=== PATIENT | male | born 1945 | race Caucasian/White ===

== ENCOUNTER 2022-02-08 08:01 | Outpatient (CLI) | payer OTHER, SELFPAY | END 2022-02-08 08:02 | disposition home or self-care (01) | PROVIDERS: PCP Family Medicine; Visit Provider Surgery | DX: R19.5 Other fecal abnormalities (principal); K57.30 Diverticulosis of large intestine without perforation or abscess without bleeding; K62.1 Rectal polyp; K63.5 Polyp of colon | CPT/HCPCS: 45380; 45381; 45385; 88305; 88341; 88342; 99153; J2250; J3010 ==

== ENCOUNTER 2022-02-11 15:21 | Outpatient (CLI) | payer OTHER, SELFPAY ==
--- OUTSIDE RECORDS SUMMARY | 2022-02-11 08:53 | XMS_ITS | Clinical Summary ---
:1945 Author Organization [facility] Address [address] [place] [address] Care Team Providers Name Role Phone Kristine Brown MD Primary Care Provider Source Comments You are receiving this document as you are listed as the primary care provider,follow-up provider, or the patient has been referred to you for consultation.This is in compliance with the Medicare and Medicaid EHR Incentive Program,which states Providers who transition their patient to another setting of careor provider of care or refers their patient to another provider of care shouldprovide summarycare record for each transition of care or referral. [employer] Allergies Active Allergy Reactions Severity Noted Date Comments Oxycodone Other, see comments 11/09/2011 Patient refuses to take it due to family addic tion issues. Medications Medication Sig Dispensed Refills Start Date End Date Status Multiple Vitamins-Iron 0 Active (MULTIVITAMIN/IRON OR) amLODIPine (NORVASC) 10 Take 1 Tab by 90 Tab 3 11/07/2016 Active MG tablet mouth daily. allopurinol (ZYLOPRIM) Take 1 Tab by 90 Tab 3 01/25/2017 Active 300 MG tablet mouth daily. predniSONE (DELTASONE) TAKE ONE TABLET 90 Tab 1 02/27/2017 Active 5 MG tablet BY MOUTH EVERY DAY Additional Information Patient not taking. Reported on 07/12/2017 lisinopril (ZESTRIL) 40 MG TAKE 1 TABLET BY MOUTH 90 Tab 0 08/18/2017 Active tablet DAILY. Additional Information Patient not taking. Reported on 09/03/2020 tamsulosin (FLOMAX) 0.4 MG CAPS capsule 0 11/26/2019 Active Active Problems Problem Noted Date Prediabetes 02/16/2015 History of basal cell cancer 01/16/2015 HTN (hypertension) 04/09/2013 Overview: 11/06/15 Increase: Amlodipine to 10 mg. Soraida Epperson RN 11/27/2015, 4:49 PM ; HTN (hypertension) ([facility]C) Nurse managed Immunizations Name Administration Dates Next Due Influenza, Unspecified Formulation 01/23/2016 Tdap 11/30/2012 Family History Medical History Relation Name Comments Hypertension Father Cataract Paternal Grandmother Glaucoma Paternal Grandmother Macular Degeneration Negative Family History Relation Name Status Comments Father Alive Mother Alive Brother Alive Daughter Alive x2 Maternal Grandfather Maternal Grandmother Paternal Grandfather Paternal Grandmother Sister 1 Alive Sister 2 Alive Son Alive x4 Social History Tobacco Use Types Packs/Day Years Used Date Smoking Tobacco: Former Cigarettes 1 9 Quit : 04/24/1971 Smokeless Tobacco: Never Alcohol Use Standard Drinks/Week Comments Yes 4.2 (1 standard drink = 0.6 oz pure alco hol) occ Sex Assigned at Date Recorded Not on file Last Filed Vital Signs Vital Sign Reading Time Taken Comments Blood Pressure 143/87 07/26/2017 8:48 AM CDT Pulse 76 04/07/2020 10:48 AM ESCALATION ENGINEER Temperature 38.2 ??C (100.7 ??F) 07/14/2016 1:46 PM CDT Respiratory Rate 14 05/19/2016 9:41 AM ESCALATION ENGINEER Oxygen Saturation - - Inhaled Oxygen Concentration - - Weight 108 kg (238 lb) 07/26/2017 8:48 AM CDT Height 182.9 cm (6') 2017 2:30 PM CDT Body Mass Index 32.28 2017 2:30 PM CDT Plan of Treatment Upcoming Encounters Date Type Specialty Care Team Description 02/14/2022 Appointment General Dentistry Bailey Castrejon, [facility] [address] [place] [address] (Wo rk) Health Maintenance Due Date Last Done Comments Colon Cancer Screening Plan Due 1945 Hep C Screening (Preventive 1945 Services) Medicare Annual Wellness Visit 1945 COVID-19 Vaccine (#1) 1945 Zoster/Shingles (1 of 2) 1997 Pneumococcal 65+ Yrs (1 - PCV) 01/25/2012 Influenza (#1) 2021 01/23/2016 DTaP/Tdap/Td (2 - Tdap) 11/30/2022 11/30/2012 HepA Aged Out No longer eligib le based on patient's age to complete this topic HepB Aged Out No longer eligib le based on patient's age to complete this topic Hib Aged Out No longer eligib le based on patient's age to complete this topic IPV (Polio) Aged Out No longer eligib le based on patient's age to complete this topic MCV4 Aged Out No longer eligib le based on patient's age to complete this topic Insurance Payer Benefit Plan Subscriber ID Effective Phone Address Typ e / Group Dates [employer] [facility] [id number] 2018-Pre PO BOX Co mmercial DENTAL PLAN SENIORS sent [address] [place] [address] [employer] (formerly [employer] [employer] [id number] 2014-Pre [phone] edicare sent 7979 MEDICARE MEDICARE [id number] 2012-Pr [phone] re MANAGED CARE esent [id number] [employer] PREVENTIVE [id number] 2020-Pre Preventive DENTAL PLAN SR PREV sent [employer] PREVENTIVE [id number] 2021-Pre Preventive DENTAL PLAN SR PREVENTIVE sent DENTAL [address] (Home) [phone] [place] GUTIER[place] (Work) [phone] Armen Crump Personal/Family Self [address] (Home) [place] [address] Armen Crump Personal/Family Self [address] (Home) [place] [address] Care Teams Warp Hauler Relationship Specialty Start Date End Date Kristine Brown MD PCP - General Family Practice 03/25/13 [address] [place] [address]
--- OUTSIDE RECORDS SUMMARY | 2022-02-11 08:53 | XMS_ITS | Encounter Summary ---
:1945 Author Organization [facility] Address [address] [place] [address] Care Team Providers Name Role Phone Kristine Brown MD Primary Care Provider Reason for Visit Reason Comments Restorative Services 9F,11F comp, 5mol amal Encounter Details Date Type Department Care Team Description 09/03/2020 Office Visit [facility] Richard Head, DDS [address] [place], [place] [phone] Restorative Services Dentistry Yardic, Exam (9F,11F comp, 5mol [address] [facility] amal) [place] [address] Social History Tobacco Use Types Packs/Day Years Used Date Smoking Tobacco: Former Cigarettes 1 9 Quit : 04/24/1971 Smokeless Tobacco: Never Alcohol Use Standard Drinks/Week Comments Yes 4.2 (1 standard drink = 0.6 oz pure alco hol) occ Sex Assigned at Date Recorded Not on file documented as of this encounter Progress Notes Tushar Head DDS - 09/03/2020 7:10 AM CDT DENTAL VISIT NOTE Subjective Reason for Visit/Chief Complaint Khanh is a 75 y.o. male who presents for Restorative Services (9F,11F comp, 5mol amal) CHIEF COMPLAINT: No CC Patient given 1%-1.5% hydrogen peroxide, rinsed for 60 seconds prior to procedure. Objective/Assessment Chart Review The following information was reviewed with the patient: Medical history, Dental history, Problem list, Periodontal charting and Radiographs RADIOGRAPHIC INTERPRETATION: #5 tooth fx DIAGNOSIS: Caries of cervical margin of tooth (primary encounter diagnosis) Fracture of tooth enamel and dentin PROGNOSIS: #5 Questionable PROGNOSIS: #9, #11 Favorable Plan Treatment Discussion I discussed the Dental findings, Prognosis, Treatment options and Risks and complications associatedwith procedure with patient. Advised due to attrition, tooth #5 may break again, may need crown. He did have endo completed #12,13, next visit post and core build ups. He does not want to extract #3 atthis time as he still uses it and can't afford implant now. CONSENT: All questions answered and the patient gave informed consent to proceed with dental treatment/services. Completed Procedures ANESTHESIA: Topical with 20% benzocaine 1.5 carpules 4% septocaine with 1:100,000 epinephrine was administered with infiltration in #5, #9, #11 No adverse side effects observed. Anesthesia was administered by Tushar Head DDS AMALGAM ADVENT, #5: Prepared with incomplete removal of existing restorations and minimal removal of tooth structure 4 retentive grooves into dentin and existing DO amalg. Isolated area with high speed suction, a cheek guard and a rubber dam Applied desensitizer microprime Preparation filled with amalgam Verified occlusion, contacts and margins POST-OP INSTRUCTIONS: Patient was advised of normal post-operative instructions and the need to exercise care because of the risk of fracture COMPOSITE ADVENT, #9, #11: Prepared with complete caries removal Isolated area with high speed suction and a rubber dam. Retraction cord isolation also Bonding with Scotchbond [place] material Preparation filled with composite material : Shade: A2 #9, A4 #11 Polishing adjuncts: finishing bur and polshing point Verified margins and aesthetics POST-OP INSTRUCTIONS: Patient was advised of normal post-operative instructions Care was assisted by surya Otero asst: karoline Next Planned Visit: ,13 post and cores Tushar Head DDS 09/03/2020, 8:51 AM --End of Note-- 7:22 AM documented in this encounter Plan of Treatment Upcoming Encounters Date Type Specialty Care Team Description 02/14/2022 Appointment General Dentistry Bailey Castrejon, [facility] [address] [place] [address] (Wo rk) documented as of this encounter Procedures Procedure Name Priority Date/Time Associated Diagnosis Comme nts 11 F COMPOSITE-1 Routine 09/03/2020 7:10 AM CDT Caries of cerv ical SURFACE ANTERIOR margin of tooth 9 F COMPOSITE-1 Routine 09/03/2020 7:10 AM CDT Caries of cervi cheo SURFACE ANTERIOR margin of tooth 5 MOL AMALGAM-3 Routine 09/03/2020 7:10 AM CDT Fracture of too th SURFACE enamel and dentin documented in this encounter Visit Diagnoses Diagnosis Caries of cervical margin of tooth - Vianney gale Fracture of tooth enamel and dentin documented in this encounter Care Teams Superintendent Terminal Relationship Specialty Start Date End Date Kristine Brown MD PCP - General Family Practice 03/25/13 [address] [place] [address] documented as of this encounter
--- OUTSIDE RECORDS SUMMARY | 2022-02-11 08:53 | XMS_ITS | Encounter Summary ---
:1945 Author Organization [facility] Address [address] [place] [address] Care Team Providers Name Role Phone Kristine Brown MD Primary Care Provider Reason for Visit Reason Comments Appt. Needed Pt would like to speak with DDS about consult on tooth 12 13. Wasn't happy with last consult 03/30 . Encounter Details Date Type Department Care Team Description 05/11/2020 Telephone [facility] Yard[facility], Exam Appt. N eeded (Pt would Dentistry like to speak with DDS [address] [place] [address] about consult on tooth 12 [place], [place] [address] 13. Wasn't happy with last [phone] consult 03/30. ) Social History Tobacco Use Types Packs/Day Years Used Date Smoking Tobacco: Former Cigarettes 1 9 Quit : 04/24/1971 Smokeless Tobacco: Never Alcohol Use Standard Drinks/Week Comments Yes 4.2 (1 standard drink = 0.6 oz pure alco hol) occ Sex Assigned at Date Recorded Not on file documented as of this encounter Plan of Treatment Upcoming Encounters Date Type Specialty Care Team Description 02/14/2022 Appointment General Dentistry Bailey Castrejon, [facility] [address] [place] [address] (Wo rk) documented as of this encounter Visit Diagnoses Not on filedocumented in this encounter Care Teams Founder And Chief Technical Officer Relationship Specialty Start Date End Date Kristine Brown MD PCP - General Family Practice 03/25/13 [address] [place] [address] documented as of this encounter
--- OUTSIDE RECORDS SUMMARY | 2022-02-11 08:53 | XMS_ITS | Encounter Summary ---
:1945 Author Organization [facility] Address [address] [place] [address] Care Team Providers Name Role Phone Kristine Brown MD Primary Care Provider Reason for Referral Dental (Routine) - Closed Specialty Diagnoses / Procedures Referred By Contact Refer red To Contact Diagnoses Dental caries into pulp Pulpal necrosis Tushar Head DDS [address] [place], [place] [address] Referral ID Status Reason Start Date Expiration Date Visits Requ ested Visits Authorized [id number] Closed 03/16/2020 06/15/2021 1 1 Scheduling Instructions Your provider has recommended an appoint ment for endodontic services within [facility]. You may c all one of the clinics below to schedule an appointment. [place] [phone] [place] [phone] SETTER Reason for Visit Reason Comments Endodontic Services endo #12 Encounter Details Date Type Department Care Team Description 03/16/2020 Office Visit [facility] Richard Head DDS [address] [place], [place] [phone] Endodontic Services Dentistry [place], Exam (endo #12) [address] [place], [place] [phone] Social History Tobacco Use Types Packs/Day Years Used Date Smoking Tobacco: Former Cigarettes 1 9 Quit : 04/24/1971 Smokeless Tobacco: Never Alcohol Use Standard Drinks/Week Comments Yes 4.2 (1 standard drink = 0.6 oz pure alco hol) occ Sex Assigned at Date Recorded Not on file documented as of this encounter Progress Notes Tushar HeadJENNYS - 03/16/2020 7:10 AM CST DENTAL VISIT NOTE Subjective Reason for Visit/Chief Complaint Khanh is a 75 y.o. male who presents for Endodontic Services (endo #12) Patient given 1%-1.5% hydrogen peroxide, rinsed for 60 seconds prior to procedure. 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 CONSENT: Patient was advised of the risks and potential complications of Endodontic Therapy. Such complications which can occur during treatment and/or may affect the outcome of treatment include, but are not limited to: ?? Root canal therapy is reportedly successful 85-95% of the time. ?? Post-op discomfort or swelling lasting a few hours to several days may require medications as deemed necessary by the dentist. ?? Separation of canal instruments in the root canal may be left in the canal or require surgery forremoval based on dentist judgement ?? Perforation of the tooth/root may require additional surgical correction or result in loss of thetooth. ?? Crack or fracture of tooth/anglican during treatment may require a new anglican or possiblyresult in loss of the tooth ?? Administration of local anesthetics may result in complications such as an allergic reaction, fainting, heart palpitations, bruising, hematoma and parasthesia in the lip and tongue. ?? Short or long-term tenderness or soreness related to the temporomandibular joint. ?? Seek evaluation and treatment from pain specialist IF pain persists for six months or more. ?? Timely and definitive anglican of the tooth is often required once the treatment is completed. ?? Contact our office if symptoms continue with the tooth. Periodic recalls may be recommended. All questions answered and the patient gave informed consent to proceed with dental treatment/services. Completed Procedures ANESTHESIA: Topical with 20% benzocaine 1.0 carpules 4% septocaine with 1:100,000 epinephrine was administered with infiltration in #12 No adverse side effects observed. Anesthesia was administered by Tushar Head DDS ENDODONTIC THERAPY - #12: Isolated area with high speed suction, cotton rolls and a rubber dam. Remove decay from buccal and restored with glass ionomer fuji IX in order to give enough structure to isolate with rubber dam. Then placed RD, removed DO caries, tried to find bu and li canals. Went down 5mm below pulpal floor and unable to negotiate canals--calcified. Recommend see oracle dba for completion Irrigation: Sodium hypochlorite 2.5-5.25% : Dried with cotton pellet Access closed with glass ionomer over cotton fuji IX Total radiographs required for treatment: 0 Patient presented with: No fracture noted Since unable to complete endo tx 12, patient agrees to continue with tx of #13, was started in May 2018 as emergency visit. ENDODONTIC THERAPY - #13: 1.0 carpules 4% septocaine with 1:100,000 epinephrine was administered with infiltration in #13 No adverse side effects observed. Anesthesia was administered by Tushar Head DDS Isolated area with high speed suction and a rubber dam Canal Location: Facial, Lingual Used apex street and building decorator, unable to get to apex, approx 4mm short in both canals Irrigation: Sodium hypochlorite 2.5-5.25% : Dried with paper points Access closed with glass ionomer over cotton Total radiographs required for treatment: 0 Patient presented with: No fracture noted Rec follow up with oracle dba to complete POST-OP INSTRUCTIONS: Patient was advised of normal post-operative instructions and need to completeendo tx or risk pain/infection. Care was assisted by karoline Araya Planned Visit: op , endo visit, referral in place for Tushar Head DDS 03/16/2020, 10:35 AM --End of Note-- 7:16 AM SETTER documented in this encounter Plan of Treatment Upcoming Encounters Date Type Specialty Care Team Description 02/14/2022 Appointment General Dentistry aBiley Castrejon, [facility] [address] [place] [address] (Wo rk) Scheduled Referrals Name Type Priority Associated Diagnoses Order S chedule Endodontics Consult Referral Routine Dental julisa s into pulp Ordered: 03/16/2020 Pulpal necrosis documented as of this encounter Procedures Procedure Name Priority Date/Time Associated Diagnosis Comme nts DIAGNOSTIC CASTS Routine 03/16/2020 7:10 AM BED SETTER Dental attriti on, excessive UNSPEC ENDO PROC BY REP Routine 03/16/2020 7:10 AM BED SETTER Dental caries extending into inner third of dentin Pulpal necrosis 12 SEDATIVE FILLING Routine 03/16/2020 7:10 AM BED SETTER Dental caries extending into inner third of dentin Dental caries into pulp documented in this encounter Visit Diagnoses Diagnosis Dental caries extending into inner third of dentin - Primary Dental caries into pulp Dental caries extending into pulp Dental attrition, excessive Excessive attrition of teeth, unspecifie d Pulpal necrosis Necrosis of dental pulp documented in this encounter Care Teams Government Employee Relationship Specialty Start Date End Date Kristine Brown MD PCP - General Family Practice 03/25/13 [address] [place] [address] documented as of this encounter
--- OUTSIDE RECORDS SUMMARY | 2022-02-11 08:53 | XMS_ITS | Encounter Summary ---
:1945 Author Organization [facility] Address [address], [place] [address] Care Team Providers Name Role Phone Kristine Brown MD Primary Care Provider Reason for Visit Reason Comments Endodontic Services co #12, #13 Dental (Routine) - Closed Specialty Diagnoses / Procedures Referred By Contact Refer red To Contact Diagnoses Dental caries into pulp Pulpal necrosis Tushar Head DDS [address] [place], [place] [address] Referral ID Status Reason Start Date Expiration Date Visits Requ ested Visits Authorized [id number] Closed 03/16/2020 06/15/2021 1 1 Encounter Details Date Type Department Care Team Description 03/30/2020 Office Visit [facility] [address], [place], [place] (co #12, #13) [place] [address] [phone] [place], [place] [address] Social History Tobacco Use Types Packs/Day Years Used Date Smoking Tobacco: Former Cigarettes 1 9 Quit : 04/24/1971 Smokeless Tobacco: Never Alcohol Use Standard Drinks/Week Comments Yes 4.2 (1 standard drink = 0.6 oz pure alco hol) occ Sex Assigned at Date Recorded Not on file documented as of this encounter Progress Notes Sagar Reyes DDS, [place] - 03/30/2020 9:00 AM CST ENDODONTIC CONSULT NOTE REASON FOR VISIT/CHIEF COMPLAINT: Armen is a 75 y.o. male who presents today for Endodontic Services (co #12, #13) CHART REVIEW: Reviewed with patient: Medical history, Dental history, Problem list, Periodontal charting and Radiographs TREATMENT DISCUSSION: Discussed with patient: Dental findings, Prognosis, Treatment options, Risks and complications associated with procedure and Billing/Treatment estimate TREATMENT OPTIONS: Nonsurgical Endodontic Therapy or Extraction PROGNOSIS: Questionable CONSENT: Obtained PROCEDURES PERFORMED AT THIS VISIT: DIAGNOSIS: Subjective: Chief Complaint: Infection (suspected) Current level of pain: 0/10 Worst pain level associated with this problem: 2/10 Location of pain: Maxillary left quadrant Nature of pain: N/A Eliciting factors: N/A Duration: N/A Alleviating factors: Not taking anything Swelling: None Objective: Radiographic interpretation: Widening of PDL space Sinus tract: none Clinical manifestation of swelling: None Extraoral evaluation: normal Total radiographs required: 2 -CLINICAL TESTS- Loc ation Cold Hot Percussion Apical Palp ation Cusps + to Tooth Sleuth Perio Probing (mm) Mobility EPT #11, #14 + N/A - - #12 - N/A - - B4,3,4 L4,3,4 Grade 0 N/A #13 - N/A - - B4,3,4 L4,3,4 Grade 0 N/A Assessment: #12, #13 Pulpal dx: previously initiated therapy Periapical dx: asymptomatic apical periodontitis Other dx: N/A Plan: Non Surgical Endodontic Therapy No OTC pain meds recommended. Care was assisted by CHRIS Ott NEXT PLANNED VISIT: Treatment --End of Note-- E WORK CLEANER documented in this encounter Plan of Treatment Upcoming Encounters Date Type Specialty Care Team Description 02/14/2022 Appointment General Dentistry Bailey Castrejon, [facility] [address] [place] [address] (Wo rk) Scheduled Orders Name Type Priority Associated Diagnoses Order S chedule 12 12 ROOT Dental Procedures Routine 1 Occurren samuel starting CANAL-BICUSPID 03/30/2020 13 13 ROOT Dental Procedures Routine 1 Occurren samuel starting CANAL-BICUSPID 03/30/2020 documented as of this encounter Procedures Procedure Name Priority Date/Time Associated Diagnosis Comme nts , LIMITED ORAL Routine 03/30/2020 9:00 AM Visit for dental EVALUATION WHITE WORK CLEANER examination documented in this encounter Visit Diagnoses Diagnosis Visit for dental examination - Primary Dental examination documented in this encounter Care Teams Starter Mechanic Relationship Specialty Start Date End Date Kristine Brown MD PCP - General Family Practice 03/25/13 [address] [place] [address] documented as of this encounter
--- OUTSIDE RECORDS SUMMARY | 2022-02-11 08:53 | XMS_ITS | Encounter Summary ---
:1945 Author Organization [facility] Address [address] [place] [address] Care Team Providers Name Role Phone Kristine Brown MD Primary Care Provider Reason for Visit Reason Comments [facility] Encounter Details Date Type Department Care Team Description 01/04/2021 Telephone [place] Richard Lau, DDReed [facility] [id number] [place] [address] [place] [address] [place], [place] [address] [phone] Social History Tobacco Use Types Packs/Day Years [...] Description 02/14/2022 Appointment General Dentistry Bailey Castrejon, [facility] [address] [place], [place] [phone] (Wo rk) documented as of this encounter Visit Diagnoses Not on filedocumented in this encounter Care Teams Label Paster Relationship Specialty Start Date End Date Kristine Brown MD PCP - General Family Practice 03/25/13 [address] [place] [address] documented as of this encounter
--- OUTSIDE RECORDS SUMMARY | 2022-02-11 08:53 | XMS_ITS | Encounter Summary ---
:1945 Author Organization [facility] Address [address] [place] [address] Care Team Providers Name Role Phone Kristine Brown MD Primary Care Provider Reason for Visit Reason Comments Insurance Concerns Encounter Details Date Type Department Care Team Description 09/03/2020 Telephone [facility] Richard Head, ALONSO Insurance Concerns Dentistry [id number] [place] [id number] [place] [address] [phone] (Wo rk) Social History Tobacco Use Types Packs/Day Years Used Date Smoking Tobacco: Former Cigarettes 1 9 Quit : 04/24/1971 Smokeless Tobacco: Never Alcohol Use Standard Drinks/Week Comments Yes 4.2 (1 standard drink = 0.6 oz pure alco hol) occ Sex Assigned at Date Recorded Not on file documented as of this encounter Patient Instructions Patient InstructionsLam Mena - 09/03/2020 3:04 PM CDT Spoke with Zafar Franklin est he will call member service documented in this encounter Plan of Treatment Upcoming Encounters Date Type Specialty Care Team Description 02/14/2022 Appointment General Dentistry Bailey Castrejon [facility] [address] [place] [address] (Wo rk) documented as of this encounter Visit Diagnoses Not on filedocumented in this encounter Care Teams Leathersmith Relationship Specialty Start Date End Date Kristine Brown MD PCP - General Family Practice 03/25/13 [address] [place] [address] documented as of this encounter
--- OUTSIDE RECORDS SUMMARY | 2022-02-11 08:53 | XMS_ITS | Encounter Summary ---
:1945 Author Organization [facility] Address [address] [place] [address] Care Team Providers Name Role Phone Kristine Brown MD Primary Care Provider Reason for Visit Reason Comments Oral Surgical Services consult / la 3 Dental (Routine) - Closed Specialty Diagnoses / Procedures Referred By Contact Refer red To Contact Diagnoses Fracture of crown and root of tooth Extensive root caries lesions involving dentin Av General Dentistry [address] [place] [address] [phone] Referral ID Status Reason Start Date Expiration Date Visits Requ ested Visits Authorized [id number] Closed 02/18/2020 05/19/2021 1 1 Encounter Details Date Type Department Care Team Description 04/07/2020 Office Visit Tatiana Gutierrez Surgical Surgery M, DDS Services (consult / [address] [place] [address] [place] [address] [phone] Social History Tobacco Use Types Packs/Day Years Used Date Smoking Tobacco: Former Cigarettes 1 9 Quit : 04/24/1971 Smokeless Tobacco: Never Alcohol Use Standard Drinks/Week Comments Yes 4.2 (1 standard drink = 0.6 oz pure alco hol) occ Sex Assigned at Date Recorded Not on file documented as of this encounter Last Filed Vital Signs Vital Sign Reading Time Taken Comments Blood Pressure - - Pulse 76 04/07/2020 10:48 AM HUMAN RESOURCES TECHNICIAN Temperature - - Respiratory Rate - - Oxygen Saturation - - Inhaled Oxygen Concentration - - Weight - - Height - - Body Mass Index - - documented in this encounter Progress Notes Tatiana Cardoza DDS - 04/07/2020 11:00 AM CST ORAL SURGERY CONSULT / PROCEDURE NOTE NAME: Armen Crump : 1945 DOS: 04/07/2020 REFERRAL:Dr Sonido GUPTA for extraction #3 PRIMARY : Kristine Brown MD (General) CHIEF COMPLAINT: Oral Surgical Services (consult / la 3) ID: 75 y.o. male, ASA 2 PAST MEDICAL HISTORY: Past Medical History: Diagnosis Date ??? BP (high blood pressure) (HRC) ??? Caries PROBLEM LIST: Patient Active Problem List Diagnosis ??? HTN (hypertension) (HRC) ??? History of basal cell cancer ??? Prediabetes MEDS: ??? allopurinol (ZYLOPRIM) 300 MG tablet, Take 1 Tab by mouth daily., Disp: 90 Tab, Rfl: 3 ??? amLODIPine (NORVASC) 10 MG tablet, Take 1 Tab by mouth daily., Disp: 90 Tab, Rfl: 3 ??? lisinopril (ZESTRIL) 40 MG tablet, TAKE 1 TABLET BY MOUTH DAILY., Disp: 90 Tab, Rfl: 0 ??? Multiple Vitamins-Iron (MULTIVITAMIN/IRON OR), , Disp: , Rfl: ??? predniSONE (DELTASONE) 5 MG tablet, TAKE ONE TABLET BY MOUTH EVERY DAY (Patient not taking: Reported on 07/12/2017), Disp: 90 Tab, Rfl: 1 ??? tamsulosin (FLOMAX) 0.4 MG CAPS capsule, , Disp: , Rfl: No current facility-administered medications on file as of 04/07/2020. ALLERGIES: Patient is allergic to oxycodone. PAST SURGICAL HISTORY: No past surgical history on file. -No surgical or anesthetic complications. (no family history of GA complications) SOCIAL HISTORY: 1. Tobacco: Patient reports that he quit smoking about 48 years ago. He has a 9.00 pack-year smokinghistory. He has never used smokeless tobacco. 2. Alcohol: Patient reports current alcohol use of about 4.2 - 5.0 standard drinks of alcohol per week. 3. Drug use: Patient reports no history of drug use. EXAMINATION: -Vital Signs: Enc Vitals Dental BP: 130/86 Cuff Size: Large Site: Left Arm Pulse: 76 -Pain: 0/10 -HEENT: There is no cervical lymphadenopathy, masses, or trismus. There is no pain to palpation of the bilateral TMJs or muscles of mastication. -TMJ: The TMJs have normal range of motion and presents without clicks, pops, or crepitus. -AIRWAY: Mallampati 2 -Intraorally, the patient has fair oral hygiene. The occlusion is in maximum intercuspation. The floor mouth is soft and nontender. There are no intraoral soft tissue lesions noted. Heavy occlusion with h/o grinding. Tooth #3 is fractured subgingivally. #12 is fractured subgingivally. #13 is at the gingiva, but sealed. IMAGING: PA: (dated 02/17/2020): fractured tooth #3. #12 and 13 potentially non- restorable at this point. ASSESSMENT: Armen is a 75 y.o. male, ASA 2, with non-restorable tooth #3 and questionable restorability #12 and 13. PLAN: Discussed findings with pt. Pt to re-visit with Dr. Head regarding #12/13- may need NSRCT/post/core/buildup/crown. - Discussed treatment options following tooth removal including no treatment, RPD, FPD and implant retained crowns. Questions were invited and answered. Pt would like to start on the upper right when ready to proceed. Next visit: la/ext #3 Tatiana Cardoza DDS 04/07/2020, 3:12 PM N RESOURCES TECHNICIAN documented in this encounter Plan of Treatment Upcoming Encounters Date Type Specialty Care Team Description 02/14/2022 Appointment General Dentistry Bailey Castrejon, [facility] [address] [place] [address] (Wo rk) Scheduled Orders Name Type Priority Associated Order Schedule Diagnoses CONE BEAM CT CAPTURE Dental Procedures Routine 1 Occurrences ONLY-LIMITED FIELD starting 04/07/2020 3 3 SURGICAL Dental Procedures Routine 1 Occurren samuel PLACEMENT: ENDOSTEAL startin g 04/07/2020 IMPLANT 3 3 BONE GRAFT AT Dental Procedures Routine 1 Occ urrences TIME OF IMPLANT starting PLACEMENT POST OP-ORAL SURG Dental Procedures Routine 1 Occ urrences starting 2019 SURGICAL STENT Dental Procedures Routine 1 Occurr ences starting 2019 3 3 SURGICAL Dental Procedures Routine 1 Occurren samuel EXTRACTION-ERUPTED starting 04/07/2020 TOOTH 3 3 BONE REPLACEMENT Dental Procedures Routine 1 Occurrences GRAFT starting 2019 documented as of this encounter Procedures Procedure Name Priority Date/Time Associated Diagnosis Comme nts LIMITED ORAL EVALUATION Routine 04/07/2020 11:00 AM Dental car ies into HUMAN RESOURCES TECHNICIAN pulp documented in this encounter Visit Diagnoses Diagnosis Dental caries into pulp - Primary Dental caries extending into pulp documented in this encounter Care Teams Shipping/Receiving Clerk Relationship Specialty Start Date End Date Kristine Brown MD PCP - General Family Practice 03/25/13 [address] [place] [address] documented as of this encounter
--- OUTSIDE RECORDS SUMMARY | 2022-02-11 08:53 | XMS_ITS | Encounter Summary ---
:1945 Author Organization [facility] Address [address] [place] [address] Care Team Providers Name Role Phone Kristine Brown MD Primary Care Provider Reason for Visit Reason Comments Problem Focused Exam Fractured tooth or filling Encounter Details Date Type Department Care Team Description 01/04/2021 Office Visit [facility] Brenna Reyes P roblem Focused Exam Dentistry DDS (Fractured tooth [place] [address] [place] [address] filling ) [place] [id number] Social History Tobacco Use Types Packs/Day Years Used Date Smoking Tobacco: Former Cigarettes 1 9 Quit : 04/24/1971 Smokeless Tobacco: Never Alcohol Use Standard Drinks/Week Comments Yes 4.2 (1 standard drink = 0.6 oz pure alco hol) occ Sex Assigned at Date Recorded Not on file documented as of this encounter Progress Notes Brenna Reyes DDS - 01/04/2021 12:00 PM CDT DENTAL EMERGENCY VISIT NOTE Shannon Stout is a 75 y.o. male who presents for Problem Focused Exam (Fractured tooth or filling ) Chief Complaint: Sensitive to cold, Sensitive to pressure, Toothache Pain Assessment: Current level of pain: 3/10 Worst pain level associated with this problem: 3/10 Location of pain: Maxillary left Nature of pain: Dull Eliciting factors: Hot, Cold, Pressure Duration: N/A Alleviating factors: Not taking anything Swelling: None Objective/Assessment The following information was reviewed with the patient: Medical history, Dental history and Radiographs Radiographic Interpretation: #12, #13 Previous endo done in April of this year Diagnosis: Defective dental protestant (primary encounter diagnosis) Prognosis: #12, #13 Favorable Pt needs to get his right knee replaced in January and wants to get these teeth taken care of, no pain but slight sensations on both teeth, fractured filling but teeth are ok, discussed to do sed fillsfor now and patient can get crowns in future,after the knee replacement, pt agreed Plan *onsent: I discussed the Dental findings, Prognosis, Treatment options, Risks and complications associated with procedure and Billing/Treatment estimate with the patient. All questions answered and they expressed understanding. Procedural Pause: Patient identify verified: Yes Treatment plan/site verified with the patient Instruments/equipment verified: Yes Any medication/allergy contraindications: No Completed Procedures: ANESTHESIA: None used, procedure was minimally invasive. SEDATIVE ALEVISM, #12, #13: Prepared with complete caries removal Isolated area with high speed suction, cotton rolls and a cheek guard Applied Cavity conditioner Preparation filled with glass ionomer material : Shade: A2 Post-Op Instructions: Patient was advised of normal post-operative instructions, potential for post-operative sensitivity and the need to exercise care because of the risk of fracture Care was assisted by CHRIS Caruso Next Planned Visit: Recall No Medications ordered this encounter Brenna Reyes DDS 01/04/2021, 1:17 PM documented in this encounter Plan of Treatment Upcoming Encounters Date Type Specialty Care Team Description 02/14/2022 Appointment General Dentistry Bailey Castrejon, [facility] [address] [place] [address] (Wo rk) documented as of this encounter Procedures Procedure Name Priority Date/Time Associated Diagnosis Comme nts FILM-PERIAPICAL FIRST Routine 01/04/2021 12:00 PM Defective de ntal CDT protestant 13 MODBL SEDATIVE Routine 01/04/2021 12:00 PM Defective dental FILLING CDT protestant 12 DOBL SEDATIVE Routine 01/04/2021 12:00 PM Defective dental FILLING CDT protestant LIMITED ORAL EVALUATION Routine 01/04/2021 12:00 PM Defective dental CDT protestant 13 EXISTING PFM CROWN Routine 01/22/2008 11:00 PM CDT 19 EXISTING FULL GOLD Routine 01/22/2008 11:00 PM CROWN CDT 12 DO EXISTING AMALGAM Routine 01/22/2008 11:00 PM FILLING CDT documented in this encounter Visit Diagnoses Diagnosis Defective dental protestant - Primary Unspecified unsatisfactory protestant o f tooth documented in this encounter Care Teams Book Shelver Relationship Specialty Start Date End Date Kristine Brown MD PCP - General Family Practice 03/25/13 [address] [place] [address] documented as of this encounter
--- OUTSIDE RECORDS SUMMARY | 2022-02-11 08:53 | XMS_ITS | Encounter Summary ---
:1945 Author Organization [facility] Address [address] [place] [address] Care Team Providers Name Role Phone Kristine Brown MD Primary Care Provider Reason for Referral Dental (Routine) - Closed Specialty Diagnoses / Procedures Referred By Contact Refer red To Contact Diagnoses Chronic apical abscess Tushar Head DDS [address] [place], [place] [address] Referral ID Status Reason Start Date Expiration Date Visits Requ ested Visits Authorized [id number] Closed 04/09/2020 07/09/2021 1 1 Scheduling Instructions Your provider has recommended an appoint ment for endodontic services within [facility]. You may c all one of the clinics below to schedule an appointment. [place] [phone] [place] [phone] IAL EDUCATION AIDE Reason for Visit Reason Comments REFERRAL REQUEST Encounter Details Date Type Department Care Team Description 04/08/2020 Telephone [facility] Richard Head DDS REFERRAL REQUEST Dentistry [address] [place] [address] [place] [address] [place] [address] [phone] Social History Tobacco Use Types Packs/Day Years Used Date Smoking Tobacco: Former Cigarettes 1 9 Quit : 04/24/1971 Smokeless Tobacco: Never Alcohol Use Standard Drinks/Week Comments Yes 4.2 (1 standard drink = 0.6 oz pure alco hol) occ Sex Assigned at Date Recorded Not on file documented as of this encounter Nursing Notes Bisi Thorpe - 04/13/2020 7:54 AM CST Called the patient and informed him the referral was in place. He will call them to get scheduled. IAL EDUCATION AIDE Tushar Head DDS - 04/09/2020 7:08 AM CST Placed new referral for [facility] for #12,13 per phone message. His request also mentioned [facility] which is Oral surgery, not endo. If he wants teeth removed I will put in OS referral. He has appt with Dr. Cardoza for extraction of #3 on 05/19/20 Tushar Head DDS 04/09/2020, 7:10 AM IAL EDUCATION AIDE Bisi Thorpe - 04/08/2020 10:42 AM CST Miscellaneous Questions & FYI's [ Appt Center/Lands Resource Manager: If this call is after 3 p.m., communicate to patient: If we are not able to get back to you by the end of the day and your symptoms worsen please contact the Careline at [phone] OR at .] Is this a symptom? No What is your question or concern? Patient wants a new referral for an plug drill operator placed in his chart. He would like to go to [facility] in [place]. Patient was seen by Harris Reardon and states he wasn't comfortable with them. Please advise Have you recently been seen for this? Yes: 03/16/20 Is it okay to leave a detailed message on your voicemail? Yes Bisi Thorpe IAL EDUCATION AIDE documented in this encounter Plan of Treatment Upcoming Encounters Date Type Specialty Care Team Description 02/14/2022 Appointment General Dentistry Bailey Castrejon, [facility] [address] [place], [place] [phone] (Wo rk) Scheduled Referrals Name Type Priority Associated Diagnoses Order S chedule Endodontics Consult Referral Routine Chronic apical absces s Ordered: 04/09/2020 documented as of this encounter Visit Diagnoses Diagnosis Chronic apical abscess - Primary documented in this encounter Care Teams Check Out Cashier Relationship Specialty Start Date End Date Kristine Brown MD PCP - General Family Practice 03/25/13 [address] [place] [address] documented as of this encounter
--- OUTSIDE RECORDS SUMMARY | 2022-02-11 08:53 | XMS_ITS | Encounter Summary ---
:1945 Author Organization [facility] Address [address] [place] [address] Care Team Providers Name Role Phone Kristine Brown MD Primary Care Provider Reason for Visit Reason Comments Dental Services returning call Encounter Details Date Type Department Care Team Description 05/11/2020 Telephone [facility] Tushar Head Den tal Services Dentistry DDS (returning call) [address] [facility] [address] [place], [place] [address] [place], [place] [phone] (Wo rk) Social History Tobacco Use Types Packs/Day Years Used Date Smoking Tobacco: Former Cigarettes 1 9 Quit : 04/24/1971 Smokeless Tobacco: Never Alcohol Use Standard Drinks/Week Comments Yes 4.2 (1 standard drink = 0.6 oz pure alco hol) occ Sex Assigned at Date Recorded Not on file documented as of this encounter Nursing Notes Tushar Head DDS - 05/11/2020 11:16 AM CST Called Khanh, he saw an lens coating technician in [place], wanted to make sure it is ok to do both teeth at the same time. Advised that is fine, best to get done before starts to abscess or cause more pain. Then can crown both teeth and have 1 side completed for solid occlusion and chewing. Can wait on extracting 3 if not bothering him at this time, 12,13 are higher priority. Tushar Head DDS 05/11/2020, 11:18 AM LEAD documented in this encounter Plan of Treatment Upcoming Encounters Date Type Specialty Care Team Description 02/14/2022 Appointment General Dentistry Bailey Castrejon, [facility] [address] [place] [address] (Wo rk) Scheduled Orders Name Type Priority Associated Diagnoses Order S chedule 12 12 CROWN SEAT Dental Procedures Routine 1 Occu rrences starting 2020 13 13 CROWN SEAT Dental Procedures Routine 1 Occu rrences starting 2020 documented as of this encounter Visit Diagnoses Not on filedocumented in this encounter Care Teams Front Facer Relationship Specialty Start Date End Date Kristine Brown MD PCP - General Family Practice 03/25/13 [address] [place], [place] [id number] documented as of this encounter
--- OUTSIDE RECORDS SUMMARY | 2022-02-11 08:54 | XMS_ITS | Encounter Summary ---
:1945 Author Organization [employer] Address [address] [place] [address] Care Team Providers Name Role Phone Kristine Brown MD Primary Care Provider Reason for Visit Reason Comments Problem Focused Exam crown came off Encounter Details Date Type Department Care Team Description 02/11/2020 Office Visit [place] [facility] Tushar Head Pro blem Focused Exam Dentistry DDS (crown came off) [address] [facility] [address] [place] [address] [phone] Social History Tobacco Use Types Packs/Day Years Used Date Smoking Tobacco: Former Cigarettes 1 9 Quit : 04/24/1971 Smokeless Tobacco: Never Alcohol Use Standard Drinks/Week Comments Yes 4.2 (1 standard drink = 0.6 oz pure alco hol) occ Sex Assigned at Date Recorded Not on file documented as of this encounter Progress Notes Tushar Head DDS - 02/11/2020 12:00 PM CDT DENTAL VISIT NOTE Subjective Reason for Visit/Chief Complaint Khanh is a 75 y.o. male who presents for Problem Focused Exam (crown came off) CHIEF COMPLAINT: Lower left crown came off, no pain. Came off 2 days ago Objective/Assessment Chart Review The following information was reviewed with the patient: Medical history, Dental history, Problem list, Periodontal charting and Radiographs EOE-wnl, OCS-wnl. #19 with gold crown off, part of MO build up inside crown. No caries on prep, perio 4mm DL,DB and slight overgrowth of tissue on M margin. PA wnl. [place] seats into position, but blanches tissue mesial. RADIOGRAPHIC INTERPRETATION: #19 Normal DIAGNOSIS: Loose Dental [place] (finding) (primary encounter diagnosis) PROGNOSIS: #19 Favorable Plan Treatment Discussion I discussed the Dental findings, Prognosis, Treatment options, Risks and complications associated with procedure and Billing/Treatment estimate with patient. CONSENT: All questions answered and the patient gave informed consent to proceed with dental treatment/services. Completed Procedures CROWN AND BRIDGE RE-CEMENT - #19: [place] recementation with resin-modified glass ionomer.Relyx luting plus Apparent reason for failure: Cement failure and Buildup failure Radiographs : N/A Verified occlusion, contacts, margins and cement removal Post-Op Instructions: Patient was advised of normal post-operative instructions Care was assisted by CHRIS Shaffer 02/11/2020, 11:44 AM Next Planned Visit: DOMESTIC HOUSEKEEPER exam/prophy Tushar Head DDS 02/11/2020, 2:12 PM --End of Note-- 11:43 AM documented in this encounter Plan of Treatment Upcoming Encounters Date Type Specialty Care Team Description 02/14/2022 Appointment General Dentistry Bailey Castrejon, [facility] [address] [place] [address] (Wo rk) documented as of this encounter Procedures Procedure Name Priority Date/Time Associated Diagnosis Comme nts FILM-PERIAPICAL FIRST Routine 02/11/2020 12:00 PM Loose Dental [place] CDT (finding) 19 CROWN RECEMENT Routine 02/11/2020 12:00 PM Loose Dental Anatomic Pathology Manager wn CDT (finding) LIMITED ORAL EVALUATION Routine 02/11/2020 12:00 PM Loose [place] al [place] CDT (finding) 2 MO EXISTING AMALGAM Routine 01/22/2008 11:00 PM FILLING CDT documented in this encounter Visit Diagnoses Diagnosis Loose Dental [place] (finding) - Primary documented in this encounter Care Teams Soil Conservation Aide Relationship Specialty Start Date End Date Kristine Brown MD PCP - General Family Practice 03/25/13 [address] [place] [address] documented as of this encounter
--- OUTSIDE RECORDS SUMMARY | 2022-02-11 08:54 | XMS_ITS | Encounter Summary ---
:1945 Author Organization [employer] Address [address], [place] [address] Care Team Providers Name Role Phone Kristine Brown MD Primary Care Provider Reason for Visit Reason Comments Encounter Details Date Type Department Care Team Description 08/15/2016 Telephone [facility] Prateek Elizabeth MD [facility] [address] [place] [address] [place] [address] [phone] Social History Tobacco Use Types Packs/Day Years Used Date Smoking Tobacco: Former Cigarettes 1 9 Quit : 04/24/1971 Smokeless Tobacco: Never Alcohol Use Standard Drinks/Week Comments Yes 4.2 (1 standard drink = 0.6 oz pure alco hol) occ Sex Assigned at Date Recorded Not on file documented as of this encounter Nursing Notes Myriam Urban LPN - 08/17/2016 2:10 PM CDT Message given to patient understanding was voiced. Myriam Urban LPN Elana Coughlin CMA - 08/17/2016 10:32 AM CDT Unable to reach by phone, left message for patient to call back. Elana Coughlin CMA 08/17/2016, 10:33 AM Prateek Britton MD - 08/17/2016 10:17 AM CDT He will be on the prednisone 5 mg daily until we get hims to his goal uric acid level of less than 6and we will keep him on the prednisone for 2-3 months after that to prevent a gout flare. Thanks. Prateek Britton MD Jory Burrows LPN - 08/17/2016 9:56 AM CDT Spoke with patient and he verbalized understanding. He is asking for clarification on how long to continue the Prednisone? Jory Burrows LPN Elana Coughlin CMA - 08/17/2016 9:00 AM CDT Unable to reach by phone, left message for patient to call back. Elana Coughlin CMA 08/17/2016, 9:00 AM Prateek Britton MD - 08/17/2016 8:06 AM CDT Prednisone 5 mg daily ordered for gout prophylaxis. Patient will stop colchicine. Thanks. Prateek Britton MD NET Elana Coughlin CMA - 08/16/2016 8:23 AM CDT Spoke with patient regarding message below, message was understood. Pt states he stopped colchicine last due to Severe Nausea/Diarrhea. Pt states he agrees with prednisone, pharmacy listed above. FYI: Pt wanted me to inform you per his PCP Dr. Brown believes the current medications pt consuming may be affecting his B/P, pt informed me he will be seeing his PCP this week to discuss b/p. Elana Coughlin CMA 08/16/2016, 8:30 AM Nicole Dent LPN - 08/15/2016 9:57 AM CDT Left message to call back. Nicole Dent LPN 08/15/2016, 9:57 AM Prateek Britton MD - 08/15/2016 9:50 AM CDT Please call patient let him know his kidney function was just slightly more elevated than it has been. His liver enzymes are normal but his blood counts show a slightly low white count. His uric acid level 7.4. How much colchicine is he taking? Is just taking it once a day. I would like him to increase his allopurinol to 200 mg daily. If he is just taking the colchicine once a day this may be the cause of his low white count. I'd like him to stop the colchicine and I can prescribe him prednisone 5 mg daily to prevent a gout flare up. Is he ok with that? Please let me know what pharmacy I should send the prednisone to. Thanks. Prateek Britton MD documented in this encounter Plan of Treatment Upcoming Encounters Date Type Specialty Care Team Description 02/14/2022 Appointment [place] [address] [place] [address] (Wo rk) documented as of this encounter Visit Diagnoses Diagnosis Gout, unspecified cause, unspecified chr onicity, unspecified site - Primary documented in this encounter Care Teams Russian History Professor Relationship Specialty Start Date End Date Kristine Brown MD PCP - General Family Practice 03/25/13 [address] [place] [address] documented as of this encounter
--- OUTSIDE RECORDS SUMMARY | 2022-02-11 08:54 | XMS_ITS | Encounter Summary ---
:1945 Author Organization [email or web address] Address [address] [address] Care Team Providers Name Role Phone Kristine Brown MD Primary Care Provider Encounter Details Date Type Department Care Team Description 10/26/2016 Lab Visit Specialty Center Gout, un specified cause, Laboratory unspecified chronicity, [address] unspecified site [place], [place] [phone] Social History Tobacco Use Types Packs/Day Years [...] Description 02/14/2022 Appointment General Dentistry Bailey Castrejon, [facility] [address] [place], [place] [phone] (Wo rk) documented as of this encounter Procedures Procedure Name Priority Date/Time Associated Diagnosis Comme nts CREATININE / GFR Routine 10/26/2016 9:01 AM Gout, unspecified Results for this CDT cause, unspecified procedure are in chronicity, the results unspecified site section. COMPLETE BLOOD Routine 10/26/2016 9:01 AM Gout, unspecified Re sults for this COUNT-W/DIFF CDT cause, unspecified procedure are in chronicity, the results unspecified site section. URIC ACID Routine 10/26/2016 9:01 AM Gout, unspecified Resu lts for this CDT cause, unspecified procedure are in chronicity, the results unspecified site section. ALT (SGPT) Routine 10/26/2016 9:01 AM Gout, unspecified Resu lts for this CDT cause, unspecified procedure are in chronicity, the results unspecified site section. AST Routine 10/26/2016 9:01 AM Gout, unspecified Resu lts for this CDT cause, unspecified procedure are in chronicity, the results unspecified site section. documented in this encounter Results Uric Acid (10/26/2016 9:01 AM CDT) P athologist Signature Uric Acid 6.5 3.5 - 7.2 [facility] mg/dl Specimen Anatomical Collection Method Collection Time Receive d Time (Source) Location / / Volume Laterality 10/26/2016 9:01 AM 9:03 CDT AM CDT Narrative [facility] - 10/26/2016 12:10 PM CDT Performed at [address] ??[id number] Prateek Britton MD LAB_1 Performing Organization Address City/[facility] Phon e Number [facility] [phone] Creatinine / GFR (10/26/2016 9:01 AM CDT) Analysis Performed At Patho logist Time Signature Creatinine 1.09 0.73 - [facility] 1.18 mg/dl LABORATORIES GFR, Estimated >60 >60 [facility] ml/min/1.7 [facility] 3m2 GFR, Est., If >60 >60 [facility] Black ml/min/1.7 LAB[facility]ATORIES 3m2 Specimen Anatomical Collection Method Collection Time Receive d Time (Source) Location / / Volume Laterality 10/26/2016 9:01 AM 9:03 CDT AM CDT Narrative [facility] - 10/26/2016 12:10 PM CDT Performed at [facility], [address] [place] [id number] Prateek Britton MD LAB_1 Performing Organization Address [facility] Phon e Number [facility] [phone] ALT (SGPT) (10/26/2016 9:01 AM CDT) athologist Signature ALT (SGPT) 23 0 - 55 U/L [facility] Specimen Anatomical Collection Method Collection Time Receive d Time (Source) Location / / Volume Laterality 10/26/2016 9:01 AM 7 9:03 CDT AM CDT Narrative [facility] - 10/26/2016 12:10 PM CDT Performed at [address] ??[id number] Prateek Britton MD LAB_1 Performing Organization Address [facility] Phon e Number [facility] [phone] AST (10/26/2016 9:01 AM CDT) athologist Signature AST (SGOT) 17 10 - 40 U/L [facility] Specimen Anatomical Collection Method Collection Time Receive d Time (Source) Location / / Volume Laterality 10/26/2016 9:01 AM 7 9:03 CDT AM CDT Narrative [facility] - 10/26/2016 12:10 PM CDT Performed at [address] ??[id number] Prateek Britton MD LAB_1 Performing Organization Address [facility] Phon e Number [facility] [phone] (ABNORMAL) Complete Blood Count-W/Diff (10/26/2016 9:01 AM CDT) [facility] gist Method Time Signature WBC 6.3 4.0 - [facility] 11.0 k/ul [facility] RBC 5.60 4.5 - 5.9 [facility] M/ul [facility] Hemoglobin 17.0 13.5 - [facility] 17.5 g/dl [facility] HCT 50.2 41.0 - [facility] 53.0 % [facility] MCV 89.6 80 - 100 [facility] fl [facility] MCH 30.4 26 - 34 [facility] pg [facility] MCHC 33.9 32 - 36 [facility] g/dl [facility] RDW 13.8 11.5 - [facility] 14.5 % [facility] Platelets 194 150 - 450 [facility] k/ul [facility] PMN/Band 75 % [facility] Lymph 13 % [facility] Inyo 9 % [facility] Eos 2 % [facility] Baso 0 % [facility] Neutrophil 4.7 1.8 - 7.7 [facility] Absolute k/ul LAB[facility] Lymph Absolute 0.8 (L) 1.0 - 4.8 [facility] k/ul [facility] Inyo Absolute 0.6 0.1 - 0.7 [facility] k/ul [facility] Eos Absolute 0.1 0.0 - 0.5 [facility] k/ul [facility] Baso Absolute 0.0 0.0 - 0.2 [facility] k/ul [facility] Immature Gran 1 % [facility] Imm Gran 0.1 (H) 0 k/ul [facility] Absolute [facility] Specimen Anatomical Collection Method Collection Time Receive d Time (Source) Location / / Volume Laterality 10/26/2016 9:01 AM 7 9:03 CDT AM CDT Narrative [facility] - 10/26/2016 1:21 PM C DT Performed at [facility], [address] [place] [address] ??[id number] Prateek Britton MD LAB_1 Performing Organization Address City/State/ZIP Code Phon e Number [facility] [phone] documented in this encounter Visit Diagnoses Diagnosis Gout, unspecified cause, unspecified chr onicity, unspecified site documented in this encounter Care Teams A R Collections Rep Relationship Specialty Start Date End Date Kristine Brown MD PCP - General Family Practice 03/25/13 [address] [place] [address] documented as of this encounter
--- OUTSIDE RECORDS SUMMARY | 2022-02-11 08:54 | XMS_ITS | Encounter Summary ---
:1945 Author Organization [employer] Address [address] [place] [address] Care Team Providers Name Role Phone Kristine Brown MD Primary Care Provider Encounter Details Date Type Department Care Team Description 01/25/2017 Telephone Specialty Center [address] Emma Britton MD [facility] [address] [place], [place] [id number] [place] [address] [phone] Social History Tobacco Use Types Packs/Day Years Used Date Smoking Tobacco: Former Cigarettes 1 9 Quit : 04/24/1971 Smokeless Tobacco: Never Alcohol Use Standard Drinks/Week Comments Yes 4.2 (1 standard drink = 0.6 oz pure alco hol) occ Sex Assigned at Date Recorded Not on file documented as of this encounter Nursing Notes Prateek Britton MD - 01/25/2017 1:16 PM CDT Allopurinol sent. Thanks. Prateek Britton MD Jory Burrows LPN - 01/25/2017 1:06 PM CDT Spoke with patient and he verbalized understanding. Please send new rx to pharmacy listed. Jory Burrows LPN Elana Coughlin CMA - 01/25/2017 8:20 AM CDT Left message with pt's at home to call back, also left message for pt to call back on mobile number. Elana Coughlin CMA 01/25/2017, 8:23 AM Prateek Birtton MD - 01/25/2017 8:16 AM CDT Please let patient know that his blood count, liver enzymes, and kidney function are all normal. Hisuric acid level is 6.0. The goal is for him to be less than six. I like him to increase his allopurinol to 300 mg daily. There is a 300 mg tab if he would like me to prescribe him that. Is he Ok with that? Thanks. Prateek Britton MD documented in this encounter Plan of Treatment Upcoming Encounters Date Type Specialty Care Team Description 02/14/2022 Appointment General Dentistry Bailey Castrejon, [facility] [address] [place], [place] [phone] (Wo rk) documented as of this encounter Visit Diagnoses Diagnosis Gout, unspecified cause, unspecified chr onicity, unspecified site - Primary documented in this encounter Care Teams Cancer Genetics Assistant Relationship Specialty Start Date End Date Kristine Brown MD PCP - General Family Practice 03/25/13 [address] [place], [place] [phone] documented as of this encounter
--- OUTSIDE RECORDS SUMMARY | 2022-02-11 08:54 | XMS_ITS | Encounter Summary ---
:1945 Author Organization [facility] Address [address] [place] [address] Care Team Providers Name Role Phone Kristine Brown MD Primary Care Provider Reason for Visit Reason Comments Refill Encounter Details Date Type Department Care Team Description 10/31/2016 Telephone Specialty Center 401 Emma Britton MD Refill [facility] [address] [place] [address] [place] [address] [phone] Social History Tobacco Use Types Packs/Day Years Used Date Smoking Tobacco: Former Cigarettes 1 9 Quit : 04/24/1971 Smokeless Tobacco: Never Alcohol Use Standard Drinks/Week Comments Yes 4.2 (1 standard drink = 0.6 oz pure alco hol) occ Sex Assigned at Date Recorded Not on file documented as of this encounter Nursing Notes Fern Gunn CMA - 10/31/2016 2:36 PM CDT The patient has been notified of this information and all questions answered. Fern Gunn CMA (AAPR) Galileo Rodarte MD - 10/31/2016 12:19 PM CDT Sent. Mireya Freed - 10/31/2016 8:52 AM CDT Patient calling because he was told at his last office visit to start taking 200 mg of allopurinol and he has to get new rx for correct dose. Mireya Vidales documented in this encounter Plan of Treatment Upcoming Encounters Date Type Specialty Care Team Description 02/14/2022 Appointment General Dentistry Bailey Castrejon, [facility] [address] [place] [address] (Wo rk) documented as of this encounter Visit Diagnoses Not on filedocumented in this encounter Care Teams Aircraft Maintenance Instructor Relationship Specialty Start Date End Date Kristine Brown MD PCP - General Family Practice 03/25/13 [address] [place] [address] documented as of this encounter
--- OUTSIDE RECORDS SUMMARY | 2022-02-11 08:54 | XMS_ITS | Encounter Summary ---
:1945 Author Organization [facility] Address [address] [place] [address] Care Team Providers Name Role Phone Kristine Brown MD Primary Care Provider Reason for Visit Reason Comments Broken Tooth Encounter Details Date Type Department Care Team Description 07/11/2017 Telephone [facility] radha Rome DDS Broken Tooth Dentistry [address] [facility] [address] [place] [address] [place], [place] [address] [phone] Social History Tobacco Use Types Packs/Day Years Used Date Smoking Tobacco: Former Cigarettes 1 9 Quit : 04/24/1971 Smokeless Tobacco: Never Alcohol Use Standard Drinks/Week Comments Yes 4.2 (1 standard drink = 0.6 oz pure alco hol) occ Sex Assigned at Date Recorded Not on file documented as of this encounter Nursing Notes Shobha Thomas - 07/11/2017 10:19 AM CDT EMERGENCY/PROBLEM FOCUS PRIOR VISIT QUESTIONNAIRE 1. Have you ever been seen in our office before? [] No [x] Yes Last Seen: [x] Less than 5 years [] 5 years or more Comments: 2. What is causing your problem? [] Accident [] Lost Voodoo [x] Broken Tooth [] Chipped Tooth Location: [] Upper Left [] Upper Front [x] Upper Right [] Lower Left [] Lower Front [] Lower Right Comments: #5 broke about 18 months ago 3. What kind of discomfort are you in? [] No Discomfort [x] Awake Last Night [x] Radiating Pain [] Throbbing Pain Comments: 4. When does the discomfort occur? [] Cold Sensitive [] Constantly [x] Pressure Sensitive [] Hot Sensitive [] Occasionally [] Other (fill in comments) Comments: 5. How long has the degree of discomfort lasted? [x] Longer Duration [] Other (enter duration in comments) Comments: 2-3 weeks Are you experiencing any other signs or symptoms? [] Bleeding/Oozing [] Fever [] Other (list other signs/symptoms in comments) Comments: Are you taking medications for this problem? [] No [x] Yes (list meds in comments) Comments: 6. Have you been advised to take antibiotics prior to dental treatment? [x] No [] Yes Comments: documented in this encounter Plan of Treatment Upcoming Encounters Date Type Specialty Care Team Description 02/14/2022 Appointment General Dentistry Bailey Castrejon, [facility] [address] [place], [place] [phone] (Wo rk) documented as of this encounter Visit Diagnoses Not on filedocumented in this encounter Care Teams Compensation Intern Relationship Specialty Start Date End Date Kristine Brown MD PCP - General Family Practice 03/25/13 [address] [place], [place] [phone] documented as of this encounter
--- OUTSIDE RECORDS SUMMARY | 2022-02-11 08:54 | XMS_ITS | Encounter Summary ---
:1945 Author Organization [facility] Address [address] [place] [address] Care Team Providers Name Role Phone Kristine Brown MD Primary Care Provider Reason for Visit Reason Comments EYE EXAM,YEARLY LEE10/2015 JL. Pt states the recent glasses he has gotten have not been as good as his older 7 yr old glasses are still the best. Both DVA and NVA do not seem as g ood. Encounter Details Date Type Department Care Team Description 07/12/2017 Office Visit [facility] Roberto Carlos Hernandez S, Visit for eye and vision exa m (Primary Dx); [address] 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 Many tests were done to check your eye health today including: pupil reaction, eye muscle function, peripheral (side) vision, visual acuity, and eye pressure. The health of your eyes was also checked, both on the outside as well as the inside of each eye. Your eyeglass prescription or contact prescription may have also been updated. Early detection of eye health problems is important to keep your eyes healthy over your lifetime. Atyour eye exam we are looking for signs of glaucoma, diabetes, high blood pressure, cataract, dry eye, eye allergies, and many other conditions. Frequently Asked Questions: Why do you use eye drops? We use a clear drop to dilate, or open the pupil wider. This allows us to have a clearer, wider view inside the eye to look for signs of eye disease. We use a different eye drop to check the pressure inside the eye; this is usually the yellow eye drop. How long will my eyes be blurry today? Your vision will be blurry up close for about an hour, and your eyes will stay dilated for about 4 hours. You will need to wear sunglasses when you are outside today. If you do not have any sunglasses with you, there are some disposable ones available. Please usecaution in getting around for the few hours that your eyes are dilated. How can I contact the clinic in the future? Appointment Center: [phone] Eye Dept: [phone] Online Services: [email or web address] For after hours care, call the CareLine at [phone] or . We look forward to taking care of your eye care needs in the years to come. Refractive Errors Refractive errors occur when light does not focus properly on the retina because of the shape of theeye. The resulting image is blurred. Common refractive errors are myopia (nearsightedness), hyperopia (farsightedness), astigmatism (distorted vision), and presbyopia (aging eyes). Myopia A myopic eye is longer than a normal eye or has a cornea that is too steep, causing light rays to focus in front of the retina instead of on it. With myopia, close objects appear clear, but distant ones appear blurred. Hyperopia A hyperopic eye is shorter than normal or has a cornea that is too flat. The light rays focus beyondthe retina instead of on it. Distant objects appear clear, but close ones appear blurred. Astigmatism The cornea of an astigmatic eye is curved unevenly. Images focus in front of and beyond the retina, causing both close and distant objects to appear blurry. Presbyopia Presbyopia refers to the hardening of the lens that occurs with age. After the age of 40, the lens becomes more rigid and cannot change shape as easily to accommodate near objects. This makes reading and other tasks performed at close range difficult. Presbyopia can occur in combination with any of the other three refractive errors. Refractive errors are usually corrected with eyeglasses or contact lenses. Sometimes surgery is needed or desirable. documented in this encounter Progress Notes Roberto Carlos Hernandez, OD - 07/12/2017 11:10 AM CDT HPI Chief Complaint Patient presents with ??? EYE EXAM,YEARLY LEE10/2015 JL. Pt states the recent glasses he has gotten have not been as good as his older 7 yr old glasses are still the best. Both DVA and NVA do not seem as good. History Reviewed Assessment Myopia, astigmatism, presbyopia. Cataracts. Macular drusen. Discussed with patient. Plan Spectacle Prescription given Return to clinic in 1 year(s) for routine eye exam. Roberto Carlos Hernandez, SOTO documented in this encounter Plan of Treatment Upcoming Encounters Date Type Specialty Care Team Description 02/14/2022 Appointment General Dentistry Bailey Castrejon, [facility] [address] [place], [place] [phone] (Wo rk) documented as of this encounter Visit Diagnoses Diagnosis Visit for eye and vision exam - Primary Examination of eyes and vision Myopia, bilateral Myopia Regular astigmatism, bilateral Presbyopia Nuclear sclerotic cataract of both eyes Senile nuclear sclerosis documented in this encounter Care Teams Network Systems Analyst Relationship Specialty Start Date End Date Kristine Brown MD PCP - General Family Practice 03/25/13 [address] [place], [place] [phone] documented as of this encounter
--- OUTSIDE RECORDS SUMMARY | 2022-02-11 08:54 | XMS_ITS | Encounter Summary ---
:1945 Author Organization [employer] Address [address] [place] [address] Care Team Providers Name Role Phone Kristine Brown MD Primary Care Provider Reason for Referral Dental (Routine) - Closed Specialty Diagnoses / Procedures Referred By Contact Refer red To Contact Diagnoses Fracture of crown and root of tooth Karyn Ramos DDS [address] [place], [place] [address] Referral ID Status Reason Start Date Expiration Date Visits Requ ested Visits Authorized [id number] Closed 07/11/2017 01/07/2018 1 1 Scheduling Instructions If scheduling assistance is needed, lizett rojas inquire with the dental office staff upon exiting your appointment or contact the ordering clinic for recommended locations. This recommended service/s may not be co kyung by your insurance coverage. To find out your specific benefit coverage, please c all the number on your insurance card. Reason for Visit Reason Comments Problem Focused Exam upper right is starting to h urt Encounter Details Date Type Department Care Team Description 07/11/2017 Office Visit [place] Karyn Foster oblem Focused Exam Dentistry [place] [address] [address] [facility] starting to hurt) [place] [address] [phone] (Wo rk) Social History Tobacco Use Types Packs/Day Years Used Date Smoking Tobacco: Former Cigarettes 1 9 Quit : 04/24/1971 Smokeless Tobacco: Never Alcohol Use Standard Drinks/Week Comments Yes 4.2 (1 standard drink = 0.6 oz pure alco hol) occ Sex Assigned at Date Recorded Not on file documented as of this encounter Progress Notes aKryn Ramos DDS - 07/11/2017 1:10 PM CDT DENTAL VISIT NOTE Chief Complaint Patient presents with ??? Problem Focused Exam upper right is starting to hurt Treatment Plan ?? Today's treatment plan was discussed with the patient ?? Treatment options and prognosis was discussed: yes Patient Consent ?? Patient gives informed consent yes; after all questions were answered Today's Treatment Assessment and PA. See SOAP Next Visit ?? Next planned visit: recall overdue Care was assisted by:PEMA Subjective: Patient presents with upper right, points to #3. I think I am having problems with the tooth that broke 2 years ago. It is starting to wake me up at night. I have been taking neproxin for the pain. Last dose was 8:00AM 400mg. 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 PA today shows no significant radiolucencies. Clinically the gingeva had overgrown where part of the P root/ Li cusp was removed. No pus or swelling present. No mobility #3. Referral to OS and stressed removal soon. Assessment: Vertical root fx. Non-restorable #3 Plan: Ext #3 @ OS CHRIS Alcantara 07/11/2017 Completed dental procedures in this visit ??? LIMITED ORAL EVALUATION ??? 3 FILM-PERIAPICAL FIRST Karyn Ramos DDS 07/11/2017, 2:45 PM documented in this encounter Plan of Treatment Upcoming Encounters Date Type Specialty Care Team Description 02/14/2022 Appointment General Dentistry Bailey Castrejon, [facility] [address] [place] [address] (Wo rk) Scheduled Referrals Name Type Priority Associated Diagnoses Order S chedule Oral Surgery Consult Referral Routine Fracture of crown an d root Ordered: 07/11/2017 of tooth documented as of this encounter Procedures Procedure Name Priority Date/Time Associated Diagnosis Comme nts 3 FILM-PERIAPICAL Routine 07/11/2017 1:46 PM CDT Fracture of c rown and FIRST root of tooth 9 EXISTING PFM CROWN Routine 01/22/2008 11:00 PM CDT 20 EXISTING PFM CROWN Routine 01/22/2008 11:00 PM CDT 10 EXISTING PFM CROWN Routine 01/22/2008 11:00 PM CDT 7 EXISTING PFM CROWN Routine 01/22/2008 11:00 PM CDT 8 EXISTING PFM CROWN Routine 01/22/2008 11:00 PM CDT 14 EXISTING PFM CROWN Routine 01/22/2008 11:00 PM CDT 30 EXISTING FULL GOLD Routine 01/22/2008 11:00 PM CROWN CDT 18 EXISTING FULL GOLD Routine 01/22/2008 11:00 PM CROWN CDT 31 EXISTING FULL GOLD Routine 01/22/2008 11:00 PM CROWN CDT 11 ML EXISTING Routine 01/22/2008 11:00 PM COMPOSITE FILLING CDT 6 ML EXISTING Routine 01/22/2008 11:00 PM COMPOSITE FILLING CDT 5 DO EXISTING AMALGAM Routine 01/22/2008 11:00 PM FILLING CDT 4 MO EXISTING AMALGAM Routine 01/22/2008 11:00 PM FILLING CDT 3 L EXISTING AMALGAM Routine 01/22/2008 11:00 PM FILLING CDT 3 MOD EXISTING AMALGAM Routine 01/22/2008 11:00 PM FILLING CDT documented in this encounter Visit Diagnoses Diagnosis Fracture of crown and root of tooth - Pr imary Periodontal disease Unspecified gingival and periodontal dis ease Tooth fracture Open wound of tooth (broken) (fractured) (due to trauma), without mention of complication Caries of dentin Dental caries extending into dentine Disorder of pulp of tooth Other and unspecified diseases of pulp a nd periapical tissues Periodontitis, apical, suppurative Periapical abscess without sinus Periapical abscess Periapical abscess without sinus Fractured dental taoist with loss o f material Fractured dental restorative material wi th loss of material documented in this encounter Care Teams Information Systems Audit Manager Relationship Specialty Start Date End Date Kristine Brown MD PCP - General Family Practice 03/25/13 [address] [place] [address] documented as of this encounter
--- OUTSIDE RECORDS SUMMARY | 2022-02-11 08:54 | XMS_ITS | Encounter Summary ---
:1945 Author Organization [employer] Address [address], [place] [address] Care Team Providers Name Role Phone Kristine Brown MD Primary Care Provider Encounter Details Date Type Department Care Team Description 07/26/2017 Lab Visit [facility] Laboratory [address] [facility] [place] [address] Social History Tobacco Use Types Packs/Day Years [...] Description 02/14/2022 Appointment General Dentistry Bailey Castrejon, [facility] [address] [place], [place] [phone] (Wo rk) documented as of this encounter Visit Diagnoses Not on filedocumented in this encounter Care Teams Aba Tutor Relationship Specialty Start Date End Date Kristine Brown MD PCP - General Family Practice 03/25/13 [address] [place], [place] [phone] documented as of this encounter
--- OUTSIDE RECORDS SUMMARY | 2022-02-11 08:54 | XMS_ITS | Encounter Summary ---
:1945 Author Organization [facility] Address [address] [place] [address] Care Team Providers Name Role Phone Kristine Brown MD Primary Care Provider Encounter Details Date Type Department Care Team Description 08/17/[address] [facility] ([place], [place]) Kristine Brown MD Practice [address] [place] [address] [place] [address] [phone] Social History Tobacco Use Types Packs/Day Years Used Date Smoking Tobacco: Former Cigarettes 1 9 Quit : 04/24/1971 Smokeless Tobacco: Never Alcohol Use Standard Drinks/Week Comments Yes 4.2 (1 standard drink = 0.6 oz pure alco hol) occ Sex Assigned at Date Recorded Not on file documented as of this encounter Nursing Notes Charlene Ortega CMA - 08/22/2017 9:21 AM CDT Reviewed and pt notified. Charlene Ortega CMA 08/22/2017, 9:21 AM Interface, Out Surescripts Prov Query - 08/17/2017 4:01 PM CDT The following lab order(s) may be associated with the Result Note below: BASIC METABOLIC PANEL Notes Recorded by Thaddeus Rodriguez MD on 07/15/2016 at 6:01 PM Your lab results are consistent with gout. Follow up if not improving. Thaddeus Rodriguez MD 07/15/2016, 6:01 PM Interface, Out Surescripts Prov Query - 08/17/2017 4:01 PM CDT The following lab order(s) may be associated with the following Patient Result Comment (Entered by Thaddeus Rodriguez MD at 07/15/2016 6:01 PM): BASIC METABOLIC PANEL Your lab results are consistent with gout. Follow up if not improving.Thaddeus Rodriguez MD 07/15/2016, 6:01 PM Interface, Out Surescripts Prov Query - 08/17/2017 4:01 PM CDT The following lab order(s) may be associated with the following Patient Result Comment (Entered by Prateek Britton MD at 07/31/2017 4:25 PM): COMPLETE BLOOD COUNT-W/DIFF Your blood counts are stable, liver enzymes and kidney function is also stable. Your uric acid levelis also at goal. Continue the allopurinol. Thanks.Prateek Britton MD Interface, Out Surescripts Prov Query - 08/17/2017 4:01 PM CDT ORDER THE FOLLOWING: - POTASSIUM: Pended to encounter. SCHEDULE THE FOLLOWING: - POTASSIUM BY: Now (Due as of 07/09/2017 for lisinopril (ZESTRIL) 40 MG tablet) - LAST QUALIFYING VISIT IN FAMILY PRACTICE: 11/07/2016 - NEXT SCHEDULED VISIT: None - NEXT LAB APPOINTMENT: None We recently received a refill request on one of your medications. While reviewing your chart, we noticed that you are going to be due for lab work within the next 3 months for the following medication: LISINOPRIL (ZESTRIL) 40 MG TABLET You can schedule your appointment online at [employer] or by calling the appointment center at the phone number listed above. Thank you for choosing [facility]. Allison Solis RN [facility] Powered by [employer], Reference: [id number], 08/17/2017 4:01:06 PM CDT, Pool: ABARCA RN ([id number]) documented in this encounter Plan of Treatment Upcoming Encounters Date Type Specialty Care Team Description 02/14/2022 Appointment [place] [address] [place] [address] (Wo rk) documented as of this encounter Visit Diagnoses Diagnosis Encounter for long-term (current) use of medications - Primary Encounter for long-term (current) use of other medications documented in this encounter Care Teams Auto Club Travel Counselor Relationship Specialty Start Date End Date Kristine Brown MD PCP - General Family Practice 03/25/13 [address] [place], [place] [phone] documented as of this encounter
--- OUTSIDE RECORDS SUMMARY | 2022-02-11 08:54 | XMS_ITS | Encounter Summary ---
:1945 Author [facility] Address [address], [place] [address] Care Team Providers Name Role Phone Kristine Brown MD Primary Care Provider Encounter Details Date Type Department Care Team Description 2017 Lab Visit Specialty Center Gout, un specified cause, Laboratory unspecified chronicity, [address] unspecified site [place], [place] [phone] Social History Tobacco Use Types Packs/Day Years [...] 02/14/2022 Appointment General Dentistry Bailey Castrejon, [facility] [address] [place], [place] [phone] (Wo rk) documented as of this encounter Procedures Procedure Name Priority Date/Time Associated Diagnosis Comme nts CREATININE / GFR Routine 2017 2:56 PM Gout, unspecified Results for this CDT cause, unspecified procedure are in chronicity, the results unspecified site section. COMPLETE BLOOD Routine 2017 2:56 PM Gout, unspecified Re sults for this COUNT-W/DIFF CDT cause, unspecified procedure are in chronicity, the results unspecified site section. URIC ACID Routine 2017 2:56 PM Gout, unspecified Resu lts for this CDT cause, unspecified procedure are in chronicity, the results unspecified site section. ALT (SGPT) Routine 2017 2:56 PM Gout, unspecified Resu lts for this CDT cause, unspecified procedure are in chronicity, the results unspecified site section. AST Routine 2017 2:56 PM Gout, unspecified Resu lts for this CDT cause, unspecified procedure are in chronicity, the results unspecified site section. documented in this encounter Results Uric Acid (2017 2:56 PM CDT) P athologist Signature Uric Acid 6.0 3.5 - 7.2 [facility] mg/dl Specimen Anatomical Collection Method Collection Time Receive d Time (Source) Location / / Volume Laterality 2017 2:56 PM 7 3:01 CDT PM CDT Narrative [facility] - 2017 7:18 PM C DT Performed at [address] ??[id number] Prateek Britton MD LAB_1 Performing Organization Address City/[facility] Phon e Number [facility] [phone] Creatinine / GFR (2017 2:56 PM CDT) Analysis Performed At Patho logist Time Signature Creatinine 1.08 0.73 - [facility] 1.18 mg/dl LAB[facility]ATOR[facility] GFR, Estimated >60 >60 [facility] ml/min/1.7 [facility] 3m2 GFR, Est., If >60 >60 [facility] Black ml/min/1.7 [facility] 3m2 Specimen Anatomical Collection Method Collection Time Receive d Time (Source) Location / / Volume Laterality 2017 2:56 PM 7 3:01 CDT PM CDT Narrative [facility] - 2017 7:18 PM C DT Performed at [address] ??[id number] Prateek Britton MD LAB_1 Performing Organization Address [facility] Phon e Number [facility] [phone] ALT (SGPT) (2017 2:56 PM CDT) athologist Signature ALT (SGPT) 25 0 - 55 U/L [facility] Specimen Anatomical Collection Method Collection Time Receive d Time (Source) Location / / Volume Laterality 2017 2:56 PM 7 3:01 CDT PM CDT Narrative [facility] - 2017 7:18 PM C DT Performed at [address] ??[id number] Prateek Britton MD LAB_1 Performing Organization Address City/[facility] Phon e Number [facility] [phone] AST (2017 2:56 PM CDT) athologist Signature AST (SGOT) 19 10 - 40 U/L [facility] Specimen Anatomical Collection Method Collection Time Receive d Time (Source) Location / / Volume Laterality 2017 2:56 PM 7 3:01 CDT PM CDT Narrative [facility] - 2017 7:18 PM C DT Performed at [address] ??[id number] Prateek Britton MD LAB_1 Performing Organization Address City/[facility] Phon e Number [facility] [phone] (ABNORMAL) Complete Blood Count-W/Diff (2017 2:56 PM CDT) [facility] gist Method Time Signature WBC 4.7 4.0 - [facility] 11.0 k/ul [facility] RBC 5.50 4.5 - 5.9 [facility] M/ul [facility] Hemoglobin 17.2 13.5 - [facility] 17.5 g/dl [facility] HCT 50.2 41.0 - [facility] 53.0 % [facility] MCV 91.3 80 - 100 [facility] fl [facility] MCH 31.3 26 - 34 [facility] pg [facility] MCHC 34.3 32 - 36 [facility] g/dl [facility] RDW 12.8 11.5 - [facility] 14.5 % [facility] Platelets 200 150 - 450 [facility] k/ul [facility] PMN/Band 68 % [facility] Lymph 20 % [facility] Young 9 % [facility] Eos 2 % [facility] Baso 0 % [facility] Neutrophil 3.2 1.8 - 7.7 [facility] Absolute k/ul [facility] Lymph Absolute 0.9 (L) 1.0 - 4.8 [facility] k/ul [facility] Young Absolute 0.4 0.1 - 0.7 [facility] k/ul [facility] Eos Absolute 0.1 0.0 - 0.5 [facility] k/ul [facility] Baso Absolute 0.0 0.0 - 0.2 [facility] k/ul [facility] Immature Gran 1 % [facility] Imm Gran 0.0 0 k/ul [facility] Absolute [facility] Specimen Anatomical Collection Method Collection Time Receive d Time (Source) Location / / Volume Laterality 2017 2:56 PM 7 3:01 CDT PM CDT Narrative [facility] - 2017 7:26 PM C DT Performed at [address] ??[id number] Prateek Britton MD LAB_1 Performing Organization Address City/State/ZIP Code Phon e Number [facility] [phone] documented in this encounter Visit Diagnoses Diagnosis Gout, unspecified cause, unspecified chr onicity, unspecified site documented in this encounter Care Teams Rural Mail Contractor Relationship Specialty Start Date End Date Kristine Brown MD PCP - General Family Practice 03/25/13 [address] [place] [address] documented as of this encounter
--- OUTSIDE RECORDS SUMMARY | 2022-02-11 08:54 | XMS_ITS | Encounter Summary ---
:1945 Author Organization [facility] Address [address], [place] [address] Care Team Providers Name Role Phone Kristine Brown MD Primary Care Provider Reason for Referral Dental (Routine) - Closed Specialty Diagnoses / Procedures Referred By Contact Refer red To Contact Diagnoses Loose Dental [place] (finding) Dental caries extending into inner third of dentin Fractured dental presybeterian with loss of material Tushar Head DDS [address] [place], [place] [address] Referral ID Status Reason Start Date Expiration Date Visits Requ ested Visits Authorized [id number] Closed 06/11/2018 09/10/2019 1 1 Scheduling Instructions Your provider has recommended an appoint ment with a history department chair within [facility]. You may c all one of the clinics below to schedule an appointment. If you prefer, a central scheduler will contact you within the next 3 business days to assist you in setting up this ap pointment. [place] - [phone] [facility] [phone] [facility] [phone] [place] - [phone] OPERATIONS COORDINATOR Reason for Visit Reason Comments Problem Focused Exam UL crown off Encounter Details Date Type Department Care Team Description 06/11/2018 Office Visit [place] [facility] Tushar Head, Pro blem Focused Exam Dentistry DDReed (UL crown off) [address] [facility] [address] [place] [address] [phone] Social History Tobacco Use Types Packs/Day Years Used Date Smoking Tobacco: Former Cigarettes 1 9 Quit : 04/24/1971 Smokeless Tobacco: Never Alcohol Use Standard Drinks/Week Comments Yes 4.2 (1 standard drink = 0.6 oz pure alco hol) occ Sex Assigned at Date Recorded Not on file documented as of this encounter Progress Notes Tushar Head, DDS - 06/11/2018 12:00 PM CST DENTAL VISIT NOTE Armen is a 73 y.o. male who presents for Problem Focused Exam (UL crown off) S: Field[place] on the UL side came out yesterday. Not sens to hot or cold, no swelling or bleeding, not tender to biting pressure, LOP 0 O: EOE- normal, OCS- on the L mid hard palate a fibrotic tissue tag measures 5x3 mm (patient says ithas been there forever), rest of the tissue is normal. #13 PFM is off, pin build up inside crown, minimal tooth structure remaining, decay on remaining prep, neg palp, no swelling, perio is WNL but ging grown over margin on M,L, D. PA shows decay, no parl. BW taken to assess caries activity adjacent teeth, wnl. A: Loosened crown, lost core due to decay #13. Overdue recall exam. Also noted #3 had not been removed per previous referral, gingival tissue overgrown palatal root fx, patient wants to leave as is. P: Today advised unable to recement crown due to decay, loss of core, possible pulp exposure due to decay. Questionable prognosis to restore due to inadequate retention. Option to try and restore w/ endo, cast P&C, crown, perio crown lengthening may be needed. Other options: no tx with risk of abscess/pain; extraction and either no replacement, bridge or implant. Patient agreed to remove decay and assess tooth, start endo if needed, then make final decision. Reviewed endo consent prior to proceeding CHART REVIEW: Reviewed health history, dental history, problem list, periodontal charting and radiographs with the patient. TREATMENT DISCUSSION: Discussed the dental findings, prognosis and treatment options with the patient. CONSENT: All questions were answered and the patient gave informed consent to proceed with dental treatment/services. ENDODONTIC PROCEDURE NOTE -TREATMENT OPTIONS: Nonsurgical Endodontic Therapy, No treatment or Extraction -PROGNOSIS: Questionable due to restorability -CONSENT: Endodontic or root canal therapy is an attempt to save a tooth which otherwise may requireextraction. Success of treatment is dependent on many variables, which are not under th control of the dentist or patient. Patient was advised of the risks and potential complications of Endodontic therapy, which can occur during treatment and/or may affect the outcome of treatment. Such complications include, but are not limited to: ?? root canal therapy is reportedly successful 85-95% of the time. ?? post-op discomfort or swelling lasting a few hours to several days may require medications as deemed necessary by the dentist. ?? separation of canal instruments in the root canal may be left in the canal or require surgery forremoval based on dentist judgement ?? perforation of the tooth/root may require additional surgical correction or result in loss of thetooth. ?? crack or fracture of tooth/presybeterian during treatment may require a new restoation or possibly result in loss of the tooth ?? administration of local anesthetics may result in complications such as an allergic reaction, fainting, heart palpitations, bruising, hematoma and parasthesia in the lip and tongue. ?? short or long-term tenderness or soreness related to the temporomandibular joint. -Isolation with dental dam to prevent aspiration/swallowing instruments and soft tissue damage fromirrigation material ?? seek evaluation and treatment from pain specialist IF pain persists for six months or more. ?? timely and definitive presybeterian of the tooth is often required once the treatment is completed. ?? contact our office if symptoms continue with the tooth. Periodic recalls may be recommended. All questions were answered and the patient gave informed consent to proceed with endodontic treatment. PROCEDURES PERFORMED AT THIS VISIT: ANESTHESIA: Topical with 20% benzocaine. 1.0 carpules 4% septocaine with 1:100,000 epinephrine was administered with infiltration in #13. . No adverse side effects observed. Anesthesia was delivered by Tushar Head DDS. ENDODONTIC PROCEDURE: Place 04-06. #13--Removed decay to gingival margins, accessed to necrotic pulp, 2 canals located.Widened w/ gg 2-4, instrument w/ hand files 10,12,15. Irrigate sodium hypochlorite, dry w/ paper points, fill canals with CaOH. Close w/ cotton and glass ionomer fuji II LC. Perio referral next to assess restorability prior to completing endo. If Dr. Davis feels it will be successful crown lengthening and adequate crown-root ratio, then will complete endo tx and proceed with cast p&c and crown. Otherwise extract and determine next steps. Recommended 600 mg Ibuprofen and 1000 mg Acetaminophen at six hour intervals. Advised not to take more than 2400 mg of Ibuprofen or 3000 mg of Acetaminophen in a 24-hour period. Care was assisted by CHRIS Longo NEXT PLANNED VISIT: perio consult. Also recommended CYLINDER INSPECTOR AND TESTER exam and cleaning, advised can sometimes catch problems before they become this aggressive. Tushar Head DDS 06/11/2018, 2:05 PM Completed dental procedures in this visit ??? LIMITED ORAL EVALUATION ??? FILM-PERIAPICAL FIRST ??? [id number] --End of Note-- OPERATIONS COORDINATOR documented in this encounter Plan of Treatment Upcoming Encounters Date Type Specialty Care Team Description 02/14/2022 Appointment [place] [address] [place] [address] (Wo rk) Scheduled Orders Name Type Priority Associated Order Schedule Diagnoses 13 13 PREFABRICATED Dental Procedures Routine 1 O ccurrences POST & CORE starting 2020 Scheduled Referrals Name Type Priority Associated Diagnoses Order S chedule Periodontics Consult Referral Routine Loose Dental [place] O rdered: 06/11/2018 (finding) Dental caries extending into inner third of dentin Fractured dental presybeterian with loss of material documented as of this encounter Procedures Procedure Name Priority Date/Time Associated Diagnosis Comme nts FILM-PERIAPICAL FIRST Routine 06/11/2018 12:00 PM Loose Dental [place] AD OPERATIONS COORDINATOR (finding) Dental caries extending into inner third of dentin Fractured dental presybeterian with loss of material documented in this encounter Visit Diagnoses Diagnosis Loose Dental [place] (finding) - Primary Dental caries extending into inner third of dentin Fractured dental presybeterian with loss o f material Fractured dental restorative material wi th loss of material documented in this encounter Care Teams Residential Property Manager Relationship Specialty Start Date End Date Kristine Brown MD PCP - General Family Practice 03/25/13 [address] [place] [address] documented as of this encounter
--- OUTSIDE RECORDS SUMMARY | 2022-02-11 08:54 | XMS_ITS | Encounter Summary ---
:1945 Author Organization [facility] Address [address] [place] [address] Care Team Providers Name Role Phone Kristine Brown MD Primary Care Provider Encounter Details Date Type Department Care Team Description 10/26/2016 Telephone Specialty Center 401 Emma Britton MD Rheumatology Clinic [address] [place] [address] [place] [address] [phone] Social History Tobacco Use Types Packs/Day Years Used Date Smoking Tobacco: Former Cigarettes 1 9 Quit : 04/24/1971 Smokeless Tobacco: Never Alcohol Use Standard Drinks/Week Comments Yes 4.2 (1 standard drink = 0.6 oz pure alco hol) occ Sex Assigned at Date Recorded Not on file documented as of this encounter Nursing Notes Prateek Britton MD - 10/26/2016 1:58 PM CDT Please call patient and let him know documented in this encounter Plan of Treatment Upcoming Encounters Date Type Specialty Care Team Description 02/14/2022 Appointment General Dentistry Bailey Castrejon, [facility] [address] [place] [address] (Wo rk) documented as of this encounter Visit Diagnoses Not on filedocumented in this encounter Care Teams Tripper Relationship Specialty Start Date End Date Kristine Brown MD PCP - General Family Practice 03/25/13 [address] [place] [address] documented as of this encounter
--- OUTSIDE RECORDS SUMMARY | 2022-02-11 08:54 | XMS_ITS | Encounter Summary ---
:1945 Author Organization [facility] Address [address] [place] [address] Care Team Providers Name Role Phone Kristine Brown MD Primary Care Provider Reason for Visit Reason Comments Medication Request colchicine 0.6mg tablet (ple ase resend for capsule form Encounter Details Date Type Department Care Team Description 08/01/2016 Telephone Specialty Center 401 Emma Britton MD Medication Request Rheumatology Clinic [address] (colchicine 0.6mg [address] [place], [place] tablet ([place] [address] for capsule form ) [phone] Social History Tobacco Use Types Packs/Day Years Used Date Smoking Tobacco: Former Cigarettes 1 9 Quit : 04/24/1971 Smokeless Tobacco: Never Alcohol Use Standard Drinks/Week Comments Yes 4.2 (1 standard drink = 0.6 oz pure alco hol) occ Sex Assigned at Date Recorded Not on file documented as of this encounter Nursing Notes Prateek Britton MD - 08/01/2016 11:54 AM CDT Capsules sent. Thanks. Prateek Britton MD Vicki Echevarria - 08/01/2016 10:[address] Britton colchicine 0.6mg tablet (please resend for capsule form Thank you documented in this encounter Plan of Treatment Upcoming Encounters Date Type Specialty Care Team Description 02/14/2022 Appointment General Dentistry Bailey Castrejon, [facility] [address] [place], [place] [id number] (Wo rk) documented as of this encounter Visit Diagnoses Diagnosis Gout, unspecified cause, unspecified chr onicity, unspecified site - Primary documented in this encounter Care Teams Butcher Scullion Relationship Specialty Start Date End Date Kristine Brown MD PCP - General Family Practice 03/25/13 [address] [place] [address] documented as of this encounter
--- OUTSIDE RECORDS SUMMARY | 2022-02-11 08:54 | XMS_ITS | Encounter Summary ---
:1945 Author Organization [facility] Address [address] [place] [address] Care Team Providers Name Role Phone Kristine Brown MD Primary Care Provider Reason for Visit Reason Comments Dental Conversion Legacy EDR to [place] convers ion Encounter Details Date Type Department Care Team Description 09/29/2016 Dental Conversion Teller General Prashant Eitan, [facility] Montserrat Sahu, DDS [address] [facility] [address] [place], [place] [address] [place], [place] [phone] [address] Social History Tobacco Use Types Packs/Day Years Used Date Smoking Tobacco: Former Cigarettes 1 9 Quit : 04/24/1971 Smokeless Tobacco: Never Alcohol Use Standard Drinks/Week Comments Yes 4.2 (1 standard drink = 0.6 oz pure alco hol) occ Sex Assigned at Date Recorded Not on file documented as of this encounter Discharge Summaries Interface, In Edr Dental Conversion - 04/28/2015 12:00 AM CST EDR dismissed Clerical Popup Note, entered 04/28/2015: Armen needs to sign a [place] Estimate ION STYLIST Interface, In Edr Dental Conversion - 11/16/2012 12:00 AM CDT EDR dismissed Billing Popup Note, entered 11/16/2012: PT HAS A PAST DUE AMOUNT documented in this encounter Miscellaneous Notes Miscellaneous - Interface, In Edr Dental Conversion - 10/19/2015 12:00 AM CDT 10/19/2015: Outgoing Phone Call: I personally called and spoke w/ member and stated we would be happy to see him again at . He didn't want to see 112; however, was open to seeing another DDS at our clinic. He's currently working in the area so clinic was the most convienient. I stated someone from the front office agent would be calling in 10-20 minutes to schedule the appointment. I told him we appreciated his patience and he stated he was very happy with how things were being handled. I told him he could personally call me with any questions or concerns he had. Miscellaneous - Interface, In Edr Dental Conversion - 05/04/2015 12:00 AM FASHION STYLIST 05/04/2015: RX Called To Pharmacy: Rx: amoxicillin transmitted to [facility] pharmacy. Pt to follow up w/ Dr. Ram if symtpoms persist. ION STYLIST Miscellaneous - Interface, In Edr Dental Conversion - 05/04/2015 12:00 AM FASHION STYLIST 05/04/2015: Outgoing Phone Call: spoke to pt know Dr. Ramos is calling in rx to [facility] ION STYLIST Miscellaneous - Interface, In Edr Dental Conversion - 05/04/2015 12:00 AM FASHION STYLIST 05/04/2015: Rx Request: Pt had endo#[address] Ram on Apr 28 and was told to call for Rx for antibiotic if he has any sign of infection. Pt said tooth has always feel tender after root canal was done but then the pain got worse over the weekend and he also is having alot of swelling, wondering if Dr. Ram can give him a Rx for anitbiotic now. He uses the [facility] but that could take days before he gets it so he is willingly to pick Rx up from the [facility] pharmacy. Pt can be reached back at cell# [phone] or home# [phone]. Clinic informed of this as Dr. Ram is not working at all today. My ION STYLIST documented in this encounter Plan of Treatment Upcoming Encounters Date Type Specialty Care Team Description 02/14/2022 Appointment General Dentistry Bailey Castrejon, [facility] [address] [place], [place] [phone] (Wo rk) documented as of this encounter Visit Diagnoses Not on filedocumented in this encounter Care Teams Tube Builder Relationship Specialty Start Date End Date Kristine Brown MD PCP - General Family Practice 03/25/13 [address] [place] [address] documented as of this encounter
--- OUTSIDE RECORDS SUMMARY | 2022-02-11 08:54 | XMS_ITS | Encounter Summary ---
:1945 Author Organization [facility] Address [address], [place] [address] Care Team Providers Name Role Phone Kristine Brown MD Primary Care Provider Reason for Referral Dental (Routine) - Closed Specialty Diagnoses / Procedures Referred By Contact Refer red To Contact Diagnoses Fracture of crown and root of tooth Extensive root caries lesions involving dentin [facility] [address] [place], [place] [address] Referral ID Status Reason Start Date Expiration Date Visits Requ ested Visits Authorized [id number] Closed 02/18/2020 05/19/2021 1 1 Scheduling Instructions Your provider has recommended an appoint ment with an oral surgeon within [facility]. You may c all one of the clinics below to schedule an appointment. [place] - [phone] [facility] [phone] [place] [phone] Reason for Visit Reason Comments Dental Hygiene upper rt tooth occ gives pro blems Encounter Details Date Type Department Care Team Description 02/17/2020 Office Visit [place] Suni Michel [facility] [address] [place] [address] Dental Hygiene (upper Dentistry Yard[place], Exam rt [place] occ gives [address] [facility] problems) [place] [address] Social History Tobacco Use Types Packs/Day Years [...] Taken Comments Blood Pressure - - Pulse 83 02/17/2020 4:06 PM CDT Temperature - - Respiratory Rate - - Oxygen Saturation - - Inhaled Oxygen Concentration - - Weight - - Height - - Body Mass Index - - documented in this encounter Patient Instructions Patient InstructionsNory Castrejon RDH - 02/17/2020 3:50 PM CDT Your next hygiene recall is due: 08/15/2020 PERSONAL DENTAL RISK REPORT FOR ARMEN IQBAL Caries (Tooth Decay) Risk low mod high Risk Level: Child's Risk: We look forward to seeing Khanh at his next visit! Thank you for choosing [facility]. documented in this encounter Progress Notes Nory Castrejon RDH - 02/17/2020 3:50 PM CDT HYGIENE PROPHY NOTE COLLABORATIVE AGREEMENT: The patient consents to have charting, radiographs and prophylaxis by the dental hygienist performed with the understanding that this care is not a substitute for an examination by a dentist. These activities were performed under a collaborating agreement with Tushar Head DDS (License #:[id number]) PRESENTATION: Oral Hygiene: Good Plaque: Localized, light supra-gingival and interproximal Calculus: Localized, light supra-gingival , interproximal and mandibular anterior Stain: None Bleeding: Localized light Gingival tissue: Normal Mucogingival concerns: Absent ACTIVITIES: Hand scale, Flossed all contacts and No japanese PATIENT EDUCATION: OHI, Oral care adjuncts, Fluoride rinse and Dry mouth management NEXT PLANNED HYGIENE VISIT: Hygiene Prophy with exam Patient given 1%-1.5% hydrogen peroxide, rinsed for 60 seconds prior to procedure. Nory Castrejon 02/17/2020, 4:21 PM --End of Note-- Tushar Head DDS - 02/17/2020 3:50 PM CDT NEW PATIENT EXAM NOTE REASON FOR VISIT/CHIEF COMPLAINT: Armen is a 75 y.o. male who presents for Dental Hygiene (upper rt tooth occ gives problems) CHART REVIEW: Reviewed with patient: Medical history, Dental history, Problem list, Periodontal charting and Radiographs SOFT TISSUE, HEAD AND NECK EXAMINATION: Lips: Normal Tongue: Normal Palate: Normal left fibroma, 13,14 area near vault, 5x5x3 Throat: Normal Floor of the mouth: Normal Mucosa: Normal adrienne ant and upper rt gingiva-poss lichen planus Head and neck: Normal TMD EVALUATION: Palpation Pain: None Joint Sounds: None Pain with Range of Motion: None OCCLUSAL EXAMINATION: Angle relationship: Right molar: Class II Right cuspid: Class II Left molar: Class I Left cuspid:Class I Maxillary midline: WNL Mandibular midline: WNL Overbite: 3 mm Overjet: 2 mm Crossbite: None Space loss: 2, Crowding: Mild Occlusion: All teeth Attrition: Excessive ant, premolars Erosion: Absent Overall occlusal relationship: Stable COSMETIC CONCERNS: Patient's Perception: Acceptable Dentist's Perception: Acceptable TREATMENT REVIEW AND FOLLOW-UP: Discussed the Dental findings, Prognosis and Treatment options with the patient. All questions answered and informed consent was obtained. Recommended Recall Interval: Examination: 6 months : Recall prophy: 3 months Planned Recall Interval: Examination: 6 months : Recall prophy: 6 months Next Planned Visit: OS to extract #3. Endo 12, 13 with future post and crowns. Study models needed to determine restorability of 5,6,11 due to excessive attrition, may not be able to accomodate full contour; other op also needed. Tushar Head DDS 02/18/2020, 9:43 AM --End of Note-- documented in this encounter Plan of Treatment Upcoming Encounters Date Type Specialty Care Team Description 02/14/2022 Appointment General Dentistry Bailey Castrejon [place], [facility] [address] [place] [address] (Wo rk) Scheduled Orders Name Type Priority Associated Order Schedule Diagnoses PROPHYLAXIS-ADULT Dental Procedures Routine 1 Occ urrences RECALL starting 2019 PERIODIC ORAL Dental Procedures Routine 1 Occurre nces EVALUATION starting 2019 [id number] Dental Procedures Routine 1 Oc currences starting 2019 13 13 PORCELAIN CROWN Dental Procedures Routine 1 Occurrences starting 2019 12 12 PORCELAIN CROWN Dental Procedures Routine 1 Occurrences starting 2019 12 12 PREFABRICATED Dental Procedures Routine 1 O ccurrences POST & CORE starting 2020 Scheduled Referrals Name Type Priority Associated Diagnoses Order S chedule Oral Surgery Consult Referral Routine Fracture of crown an d root Ordered: 02/18/2020 of tooth Extensive root caries lesions involving dentin documented as of this encounter Procedures Procedure Name Priority Date/Time Associated Diagnosis Comme nts FILM-PANORAMIC Routine 02/17/2020 3:50 PM Localized inflammati on CDT of gingival margin [id number] Routine 02/17/2020 3:50 PM Localized inflam mation CDT of gingival margin 3 FILM-PERIAPICAL Routine 02/17/2020 3:50 PM Localized inflamm ation ADDITIONAL CDT of gingival margin 19 FILM-PERIAPICAL Routine 02/17/2020 3:50 PM Localized inflam mation ADDITIONAL CDT of gingival margin 10 FILM-PERIAPICAL Routine 02/17/2020 3:50 PM Localized inflam mation ADDITIONAL CDT of gingival margin 13 FILM-PERIAPICAL Routine 02/17/2020 3:50 PM Localized inflam mation ADDITIONAL CDT of gingival margin 6 FILM-PERIAPICAL FIRST Routine 02/17/2020 3:50 PM Localized i nflammation CDT of gingival margin PROPHYLAXIS-ADULT RECALL Routine 02/17/2020 3:50 PM Localized inflammation CDT of gingival margin COMPREHENSIVE ORAL Routine 02/17/2020 3:50 PM Localized inflam mation EVALUATION CDT of gingival margin 10 EXISTING ROOT CANAL Routine 02/17/2020 12:00 AM TREATMENT CDT 16 EXISTING AMALGAM Routine 01/22/2008 11:00 PM FILLING CDT documented in this encounter Visit Diagnoses Diagnosis Localized inflammation of gingival meño n - Primary Fracture of crown and root of tooth Extensive root caries lesions involving dentin Dental caries extending into inner third of dentin Dental caries into pulp Dental caries extending into pulp Caries of cervical margin of tooth Fracture of tooth enamel and dentin documented in this encounter Care Teams Nibbler Operator Relationship Specialty Start Date End Date Kristine Brown MD PCP - General Family Practice 03/25/13 [address] [place] [address] documented as of this encounter
--- OUTSIDE RECORDS SUMMARY | 2022-02-11 08:54 | XMS_ITS | Encounter Summary ---
:1945 Author Organization [facility] Address [address] [place] [address] Care Team Providers Name Role Phone Kristine Brown MD Primary Care Provider Reason for Visit Reason Comments Revisit Consult/Transfer Care (Routine) - Closed Specialty Diagnoses / Procedures Referred By Contact Refer red To Contact Diagnoses Essential hypertension (HR[place]) [place] [address] [place], [place] [address] Referral ID Status Reason Start Date Expiration Date Visits Requ ested Visits Authorized [id number] Closed 11/07/2016 02/06/2018 1 1 Encounter Details Date Type Department Care Team Description 2017 Office Visit Specialty Center 401 Prateek Britton G out, unspecified Rheumatology Clinic cause, unspecified [address] chronicity, [place] [address] [place], [place] unspecified site [phone] (Primary Dx) Social History Tobacco Use Types Packs/Day Years Used Date Smoking Tobacco: Former Cigarettes 1 9 Quit : 04/24/1971 Smokeless Tobacco: Never Alcohol Use Standard Drinks/Week Comments Yes 4.2 (1 standard drink = 0.6 oz pure alco hol) occ Sex Assigned at Date Recorded Not on file documented as of this encounter Last Filed Vital Signs Vital Sign Reading Time Taken Comments Blood Pressure 122/71 2017 2:30 PM CDT Pulse 72 2017 2:30 PM CDT Temperature - - Respiratory Rate - - Oxygen Saturation - - Inhaled Oxygen Concentration - - Weight 109.7 kg (241 lb 12.8 oz) 2017 2:30 PM CDT Height 182.9 cm (6') 2017 2:30 PM CDT Body Mass Index 32.79 2017 2:30 PM CDT documented in this encounter Patient Instructions Patient InstructionsPrateek Britton MD - 2017 2:40 PM CDT Your last uric acid level was 6.5. We will check some blood work today to see what your uric acid level is today. Your goal uric acid level is less than 6.0. Call me with any issues. I will call you when blood work returns. documented in this encounter Progress Notes Prateek Britton MD - 2017 2:40 PM CDT [facility] Rheumatology Outpatient Consultation Report Date: 01/24/17 Reason for Visit: f/u for gout History of Present Illness: Armen Crump is a 72 y.o. male who presents for f/u for gout. Patient's records reviewed and pertinent data summarized below. From initial evaluation 07/27/16: The patient states for the last 15 years or so he has been having intermittent swelling of either of his MTPs. Then over the years it would start involving his middle toes as well. However over the last three years or so he started getting involvement of his midfoot and occasionally his ankle. He states that now more recently when he has a flare will typically start in his big toe and then start involving his midfoot and ankle. He states that the joints will get very warm, red, swollen. The episodes typically last for a week and then resolve on their own. He has taken ibuprofen in and Aleve for this in the past. He states that these would help significantly with the pain and swelling. With his most recent flare that involved his right first MTP, right mid foot and right ankle he was given prednisone 40 mg daily for a week and his symptoms completely resolved within the first 48 hours. He statesthat it was rather miraculous. He has never had any flares involving his knees, hands, elbows, shoulders, or hips. He would typically have a couple flares a year but now he has them a little bit more of ten. It is getting to a point where he would like to take something to prevent this from happening. He does not notice anything in particular that brings it on. He was on hydrochlorothiazide and whenthis was stopped he noticed a reduction in the frequency of his gout flares. He denies any family history of gout. When he saw his primary was given prednisone he was having an active flare and a uric acid level was checked at that time. His uric acid level was 7.5. The patient had a negative ARNIE, negative rheumatoid factor, negative Lyme antibody. 10/2016: After last visit we had started the patient on colchicine for prophylaxis but the patient had severe nausea and diarrhea from the colchicine so this was stopped. We switched him to prednisone 5 mg daily for prophylaxis. He was also started on allopurinol 100 mg daily and he has been tolerating this well without any side effects. He denies having any gout flares. He denies any warmth, redness, swelling of any joints at this time. Overall he is happy with how things are going. He has not had a uric acid level checked for follow up and is still not at goal with his last uric acid level being 7.4. Interim hx: Patient states that he has been feeling well. He has not had any flares of his gout. His last uric acid was still above goal at 6.5 but his allopurinol was increased to 200 mg after that check. He didnot get a repeat uric acid level checked. He states that he also stopped prednisone for prophylaxis.He otherwise has been feeling great. Review of Systems: Gen - no history for fevers/chills Skin - Denies rashes MSK - per above Past Medical History: Active Ambulatory Problems Diagnosis Date Noted ??? HTN (hypertension) ([facility]) 04/09/2013 ??? History of basal cell cancer 01/16/2015 ??? Prediabetes 02/16/2015 Resolved Ambulatory Problems Diagnosis Date Noted ??? No Resolved Ambulatory Problems No Additional Past Medical History Outpatient Medications: Outpatient Medications Prior to Visit Medication Sig Dispense Refill ??? allopurinol (ZYLOPRIM) 100 MG tablet Take 2 Tabs by mouth daily. 180 Tab 0 ??? amLODIPine (NORVASC) 10 MG tablet Take 1 Tab by mouth daily. 90 Tab 3 ??? lisinopril (ZESTRIL) 40 MG tablet Take 1 Tab by mouth daily. 90 Tab 3 ??? Multiple Vitamins-Iron (MULTIVITAMIN/IRON OR) ??? predniSONE (DELTASONE) 5 MG tablet Take 1 Tab by mouth daily. 90 Tab 1 No facility-administered medications prior to visit. Social History: Smoking history - denies EToh/drug history - occasional ETOH use, denies illicits Family History: Denies history for known autoimmune disorders, including lupus, rheumatoid arthritis Denies family hx of gout Objective: Filed Vitals: 01/24/17 1430 BP: 122/71 Pulse: 72 Weight: 241 lb 12.8 oz (109.7 kg) Height: 6' (1.829 m) General: pleasant, comfortable; ambulates without difficulty HEENT: no scalp rash; no facial rash; no ocular inflammation Neck: supple Lymph/Ext: no peripheral edema Skin: no rashes Neuro - strength and sensation is grossly intact and symmetric throughout MSK - Soft tissue: no tophi Elbow - full ROM and no joint effusion on exam; nontender bilaterally Wrist - full ROM and no joint effusion on exam; nontender joints bilaterally Hand - T0S0 of bilateral DIPs, PIPs, MCP joints. Normal hand-chief radiologic technologist without pain Knee - no joint effusion or joint line tenderness on exam; normal range of motion Ankle -no joint effusion or joint tenderness; no achilles tenderness Foot - no focal pain on palpation of the MTPs bilaterally Labs & Imaging: Reviewed Assessment/Plan: Armen Crump is a 72 y.o. male who is presenting for f/u for non-crystal proven gout. 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 As he has had recurrences of an inflammatory arthritis primarily involving his MTPs and then resolving after a week this is most suggestive of gout compared to pseudogout or other crystalline arthropathy such as BCP. The patient hasno signs or symptoms of a systemic autoimmune disease such as rheumatoid arthritis or psoriatic arthritis. Patient has had greater than two flares a year and thus would benefit from urate lowering therapy. Started allopurinol 07/2016. Used colchicine for prophylaxis but had GI upset with this. Then used prednisone 5 mg daily but he stopped this on his own. Currently on allopurinol 200 mg daily. -check uric acid level today -Continue allopurinol 200 mg daily -goal uric acid level is < 6.0 RTC in 6 months Prateek Britton MD 01/24/17, 2:40 PM documented in this encounter Plan of Treatment Upcoming Encounters Date Type Specialty Care Team Description 02/14/2022 Appointment General Dentistry Bailey Castrejon, [facility] [address] [place] [address] (Wo rk) Scheduled Referrals Name Type Priority Associated Diagnoses Order S niki NURSE APPOINTMENT Referral Routine Essential hypertension Ordered: 11/07/2016 ADULT/PEDS [[id number]] documented as of this encounter Visit Diagnoses Diagnosis Gout, unspecified cause, unspecified chr onicity, unspecified site - Primary documented in this encounter Care Teams Wood Sawyer Relationship Specialty Start Date End Date Kristine Brown MD PCP - General Family Practice 03/25/13 [address] [place] [address] documented as of this encounter
--- OUTSIDE RECORDS SUMMARY | 2022-02-11 08:54 | XMS_ITS | Encounter Summary ---
:1945 Author Organization [facility] Address [address] [place] [address] Care Team Providers Name Role Phone Kristine Brown MD Primary Care Provider Reason for Visit Reason Comments Encounter Details Date Type Department Care Team Description 07/27/2016 Telephone Specialty Center 401 Emma Britton MD Rheumatology Clinic [address] [facility] [address] [facility] [place] [address] [place] [address] [phone] Social History Tobacco Use Types Packs/Day Years Used Date Smoking Tobacco: Former Cigarettes 1 9 Quit : 04/24/1971 Smokeless Tobacco: Never Alcohol Use Standard Drinks/Week Comments Yes 4.2 (1 standard drink = 0.6 oz pure alco hol) occ Sex Assigned at Date Recorded Not on file documented as of this encounter Nursing Notes Myriam Urban LPN - 07/28/2016 8:42 AM CDT Message given to patient understanding was voiced. Myriam Urban LPN Elana Johnson CMA - 07/28/2016 8:11 AM CDT Unable to reach by phone, left message for patient to call back. Elana Coughlin CMA 07/28/2016, 8:11 AM Elana Coughlin CMA - 07/27/2016 3:43 PM CDT Unable to reach by phone, left message for patient to call back. Elana Coughlin CMA 07/27/2016, 3:44 PM Prateek Britton MD - 07/27/2016 3:17 PM CDT Please let Mr. Crump know that his kidney function, liver enzymes and the blood counts all look okay. His uric acid level of 8.1. He should start the allopurinol and colchicine as we discussed and geta recheck blood work in two weeks. Thanks. Prateek Britton MD documented in this encounter Plan of Treatment Upcoming Encounters Date Type Specialty Care Team Description 02/14/2022 Appointment General Dentistry Bailey Castrejon, [facility] [address] [place], [place] [phone] (Wo rk) documented as of this encounter Visit Diagnoses Not on filedocumented in this encounter Care Teams Program Development Manager Relationship Specialty Start Date End Date Kristine Brown MD PCP - General Family Practice 03/25/13 [address] [place] [address] documented as of this encounter
--- OUTSIDE RECORDS SUMMARY | 2022-02-11 08:54 | XMS_ITS | Encounter Summary ---
:1945 Author Organization [employer] Address [address] [place] [address] Care Team Providers Name Role Phone Kristine Brown MD Primary Care Provider Reason for Visit Reason Comments Other crown came off Encounter Details Date Type Department Care Team Description 06/11/2018 Telephone [place] Karyn Foster, Other (crown came off) Dentistry [facility] [address] [facility] [address] [place] [address] [place], [place] [phone] (Wo rk) Social History Tobacco Use Types Packs/Day Years Used Date Smoking Tobacco: Former Cigarettes 1 9 Quit : 04/24/1971 Smokeless Tobacco: Never Alcohol Use Standard Drinks/Week Comments Yes 4.2 (1 standard drink = 0.6 oz pure alco hol) occ Sex Assigned at Date Recorded Not on file documented as of this encounter Nursing Notes Juany Sheppard I - 06/11/2018 8:16 AM CST EMERGENCY/PROBLEM FOCUS PRIOR VISIT QUESTIONNAIRE 1. Have you ever been seen in our office before? [] No [x] Yes Last Seen: [x] Less than 5 years [] 5 years or more Comments: 2. What is causing your problem? [] Accident [] Lost Baptism [] Broken Tooth [] Chipped Tooth [] Toothache Location: [x] Upper Left [] Lower Left [] Upper Front [] Lower Front [] Upper Right [] Lower Right Comments: [place] came off 3. What kind of discomfort are you in? [x] No Discomfort [] Awake Last Night [] Radiating Pain [] Throbbing Pain Comments: 4. When does the discomfort occur? [] Cold Sensitive [] Constantly [] Pressure Sensitive [] Hot Sensitive [] Occasionally [] Other (fill in comments) Comments: 5. How long has the degree of discomfort lasted? [] Longer Duration [] Other (enter duration in comments) Comments: Came off last night Are you experiencing any other signs or symptoms? [] Bleeding/Oozing [] Fever [] Other (list other signs/symptoms in comments) Comments: Are you taking medications for this problem? [x] No [] Yes (list meds in comments) Comments: 6. Have you been advised to take antibiotics prior to dental treatment? [x] No [] Yes Comments: Will bring the crown with RACT CLERK documented in this encounter Plan of Treatment Upcoming Encounters Date Type Specialty Care Team Description 02/14/2022 Appointment General Dentistry Bailey Castrejon, [facility] [address] [place] [address] (Wo rk) documented as of this encounter Visit Diagnoses Not on filedocumented in this encounter Care Teams Brimming Machine Operator Relationship Specialty Start Date End Date Kristine Brown MD PCP - General Family Practice 03/25/13 [address] [place] [address] documented as of this encounter
--- OUTSIDE RECORDS SUMMARY | 2022-02-11 08:54 | XMS_ITS | Encounter Summary ---
:1945 [address] [facility] [address] Address [address] [address] Care Team Providers Name Role Phone Kristine Brown MD Primary Care Provider Encounter Details Date Type Department Care Team Description 07/27/2016 Lab Visit Specialty Center Gout, un specified cause, Laboratory unspecified chronicity, [address] unspecified site [place], [place] [phone] Social History Tobacco Use Types Packs/Day Years [...] Description 02/14/2022 Appointment General Dentistry Bailey Castrejon, [facility] [address] [place], [place] [phone] (Wo rk) documented as of this encounter Procedures Procedure Name Priority Date/Time Associated Diagnosis Comme nts CREATININE / GFR Routine 07/27/2016 8:53 AM Gout, unspecified Results for this CDT cause, unspecified procedure are in chronicity, the results unspecified site section. COMPLETE BLOOD Routine 07/27/2016 8:53 AM Gout, unspecified Re sults for this COUNT-W/DIFF CDT cause, unspecified procedure are in chronicity, the results unspecified site section. URIC ACID Routine 07/27/2016 8:53 AM Gout, unspecified Resu lts for this CDT cause, unspecified procedure are in chronicity, the results unspecified site section. ALT (SGPT) Routine 07/27/2016 8:53 AM Gout, unspecified Resu lts for this CDT cause, unspecified procedure are in chronicity, the results unspecified site section. AST Routine 07/27/2016 8:53 AM Gout, unspecified Resu lts for this CDT cause, unspecified procedure are in chronicity, the results unspecified site section. documented in this encounter Results Creatinine / GFR (07/27/2016 8:53 AM CDT) Analysis Performed At Patho logist Time Signature Creatinine 1.02 0.73 - [facility] 1.18 mg/dl LABORATORIES GFR, Estimated >60 >60 [facility] ml/min/1.7 LABORATORIES 3m2 GFR, Est., If >60 >60 [facility] Black ml/min/1.7 LABORATORIES 3m2 Specimen Anatomical Collection Method Collection Time Receive d Time (Source) Location / / Volume Laterality 07/27/2016 8:53 AM 7 8:56 CDT AM CDT Narrative [facility] - 07/27/2016 1:15 PM C DT Performed at [facility], [address] [place] [address] ??[id number] Prateek Britton MD LAB_1 Performing Organization Address [facility] Phon e Number [facility] [phone] ALT (SGPT) (07/27/2016 8:53 AM CDT) P athologist Signature ALT (SGPT) 26 0 - 55 U/L [facility] Specimen Anatomical Collection Method Collection Time Receive d Time (Source) Location / / Volume Laterality 07/27/2016 8:53 AM 7 8:56 CDT AM CDT Narrative [facility] - 07/27/2016 1:15 PM C DT Performed at [facility], [address] [place] [address] ??[phone] Prateek Britton MD LAB_1 Performing Organization Address City/[facility]/ZIP [facility] Phon e Number [facility] [phone] AST (07/27/2016 8:53 AM CDT) P athologist Signature AST (SGOT) 18 10 - 40 U/L [facility] Specimen Anatomical Collection Method Collection Time Receive d Time (Source) Location / / Volume Laterality 07/27/2016 8:53 AM 7 8:56 CDT AM CDT Narrative [facility] - 07/27/2016 1:15 PM C DT Performed at [facility], [address] [place] [address] ??[phone] Prateek Britton MD LAB_1 Performing Organization Address City/State/ZIP Code Phon e Number [facility] [phone] Complete Blood Count-W/Diff (07/27/2016 8:53 AM CDT) Analysis Performed At Patho logist Time Signature WBC 4.9 4.0 - 11.0 [facility] k/ul LABORATORIES RBC 5.77 4.5 - 5.9 [facility] M/ul [facility] Hemoglobin 17.4 13.5 - [facility] 17.5 g/dl LAB[facility]ATORIES HCT 51.9 41.0 - [facility] 53.0 % LABORATORIES MCV 89.9 80 - 100 [facility] fl [facility] MCH 30.2 26 - 34 pg [facility] MCHC 33.5 32 - 36 [facility] g/dl LAB[facility] RDW 13.4 11.5 - [facility] 14.5 % LAB[facility] Platelets 198 150 - 450 [facility] k/ul LAB[facility] PMN/Band 61 % [facility] Lymph 22 % [facility] Lumpkin 13 % [facility] Eos 3 % [facility] Baso 0 % [facility] Neutrophil 3.0 1.8 - 7.7 [facility] Absolute k/ul LABORATORIES Lymph Absolute 1.1 1.0 - 4.8 [facility] k/ul LAB[facility] [place]kin Absolute 0.7 0.1 - 0.7 [facility] k/ul [facility] Eos Absolute 0.2 0.0 - 0.5 [facility] k/ul [facility] Baso Absolute 0.0 0.0 - 0.2 [facility] k/ul [facility] Immature Gran 1 % [facility] Imm Gran 0.0 0 k/ul [facility] Absolute LAB[facility]ATOR[facility] Specimen Anatomical Collection Method Collection Time Receive d Time (Source) Location / / Volume Laterality 07/27/2016 8:53 AM 7 8:56 CDT AM CDT Narrative [facility] - 07/27/2016 1:48 PM C DT Performed at [facility], [address] [place] [address] ??[phone] Prateek Britton MD LAB_1 Performing Organization Address City/[facility] Phon e Number [facility] [phone] (ABNORMAL) Uric Acid (07/27/2016 8:53 AM CDT) P athologist Signature Uric Acid 8.1 (H) 3.5 - 7.2 [facility] mg/dl Specimen Anatomical Collection Method Collection Time Receive d Time (Source) Location / / Volume Laterality 07/27/2016 8:53 AM 7 8:56 CDT AM CDT Narrative [facility] - 07/27/2016 1:15 PM C DT Performed at [facility], [address] [place] [address] ??[phone] Prateek Britton MD LAB_1 Performing Organization Address [facility] Phon e Number [facility] [phone] documented in this encounter Visit Diagnoses Diagnosis Gout, unspecified cause, unspecified chr onicity, unspecified site documented in this encounter Care Teams Ase Master Mechanic Relationship Specialty Start Date End Date Kristine Brown MD PCP - General Family Practice 03/25/13 [address] [place] [address] documented as of this encounter
--- OUTSIDE RECORDS SUMMARY | 2022-02-11 08:54 | XMS_ITS | Encounter Summary ---
:1945 Author Organization [employer] Address [address] [place] [address] Care Team Providers Name Role Phone Kristine Brown MD Primary Care Provider Reason for Visit Reason Comments EMPF lost gold crown Encounter Details Date Type Department Care Team Description 02/10/2020 Telephone [place] [facility] YaTushar rachel EMP F (lost gold crown) Dentistry [facility] [address] [facility] [address] [place] [address] [place], [place] [phone] (Wo rk) Social History Tobacco Use Types Packs/Day Years Used Date Smoking Tobacco: Former Cigarettes 1 9 Quit : 04/24/1971 Smokeless Tobacco: Never Alcohol Use Standard Drinks/Week Comments Yes 4.2 (1 standard drink = 0.6 oz pure alco hol) occ Sex Assigned at Date Recorded Not on file documented as of this encounter Nursing Notes Yashira Madrid - 02/10/2020 8:31 AM CDT Pt is not in any pain with this tooth but does not want to wait to long to get the crown put back on. documented in this encounter Plan of Treatment Upcoming Encounters Date Type Specialty Care Team Description 02/14/2022 Appointment General Dentistry Bailey Castrejon, [facility] [address] [place] [address] (Wo rk) documented as of this encounter Visit Diagnoses Not on filedocumented in this encounter Care Teams Circuit Walker Relationship Specialty Start Date End Date Kristine Brown MD PCP - General Family Practice 03/25/13 [address] [place] [address] documented as of this encounter
--- OUTSIDE RECORDS SUMMARY | 2022-02-11 08:54 | XMS_ITS | Encounter Summary ---
:1945 Author Organization [employer] Address [address] [place] [address] Care Team Providers Name Role Phone Kristine Brown MD Primary Care Provider Reason for Visit Reason Comments Refill Encounter Details Date Type Department Care Team Description 02/27/2017 Refill [facility] [place] tPrateek MD Refill [facility] [address] [place] [address] [place] [address] [phone] Social History Tobacco Use Types Packs/Day Years [...] 02/14/2022 Appointment [place] [address] [place] [address] (Wo rk) documented as of this encounter Visit Diagnoses Not on filedocumented in this encounter Care Teams Purchasing Engineer Relationship Specialty Start Date End Date Kristine Brown MD PCP - General Family Practice 03/25/13 [address] [place], [place] [phone] documented as of this encounter
--- OUTSIDE RECORDS SUMMARY | 2022-02-11 08:54 | XMS_ITS | Encounter Summary ---
:1945 Author Organization [facility] Address [address] [place] [address] Care Team Providers Name Role Phone Kristine Brown MD Primary Care Provider Reason for Referral Consult/Transfer Care (Routine) - Closed Specialty Diagnoses / Procedures Referred By Contact Refer red To Contact Diagnoses Essential hypertension (HRC) [place] [address] [place], [place] [address] Referral ID Status Reason Start Date Expiration Date Visits Requ ested Visits Authorized [id number] Closed 11/07/2016 02/06/2018 1 1 Scheduling Instructions Your provider has recommended an appoint ment with a [facility] nurse. A publications writer will contact you within the next 3 in ess days to assist you in setting up this appointment. Reason for Visit Reason Comments FOLLOW-UP,BP Consult/Transfer Care (Routine) - Closed Specialty Diagnoses / Procedures Referred By Contact Refer red To Contact Family Medicine Diagnoses Essential hypertension (HRC) Prateek Britton MD [address] [place] [address] Phone: Fax: Referral ID Status Reason Start Date Expiration Date Visits Requ ested Visits Authorized [id number] Closed 10/26/2016 01/25/2018 1 1 Encounter Details Date Type Department Care Team Description 11/07/2016 Office Visit [facility] Kristine Brown MD Essential hypertension Practice [address] [facility] (Primary Dx) [address] [place] [address] [phone] Social History Tobacco Use Types Packs/Day Years Used Date Smoking Tobacco: Former Cigarettes 1 9 Quit : 04/24/1971 Smokeless Tobacco: Never Alcohol Use Standard Drinks/Week Comments Yes 4.2 (1 standard drink = 0.6 oz pure alco hol) occ Sex Assigned at Date Recorded Not on file documented as of this encounter Last Filed Vital Signs Vital Sign Reading Time Taken Comments Blood Pressure 139/85 11/07/2016 10:45 AM CDT Pulse 70 11/07/2016 10:45 AM CDT Temperature - - Respiratory Rate - - Oxygen Saturation - - Inhaled Oxygen Concentration - - Weight - - Height - - Body Mass Index - - documented in this encounter Patient Instructions Patient InstructionsKristine Brown MD - 11/07/2016 10:40 AM CDT Please start amlodipine 10 mg (full tablet daily). Please return for a nurse appointment in 3-4 weeks for repeat blood pressure check. documented in this encounter Progress Notes Kristine Brown MD - 11/07/2016 10:40 AM CDT Chief Complaint Patient presents with ??? FOLLOW-UP,BP 71 yo M here for f/u HTN. He's had more BP's in the 140-150's. Denies SOB, chest pain/pressure/tightness,lightheadedness/dizziness/passing out, DURANT's. He is taking his medications as prescribed without SE's. Allergies Allergen Reactions ??? Oxycodone Other, see comments Patient refuses to take it due to family addiction issues. ROS: see above for pertinents. BP 139/85 Pulse 70 General: patient appears well, alert and oriented x 3, pleasant, cooperative. Chest: clear to IPPA. Heart: heart sounds are normal, no murmurs, clicks, gallops or rubs. Ext: no LE edema b/l. A/P: 1. HTN: increase to amlodipine 10mg PO Qdaily, SERD. RTC for NV/repeat BP check in 3 weeks. Kristine Brown MD 11/23/2016, 7:09 PM documented in this encounter Plan of Treatment Upcoming Encounters Date Type Specialty Care Team Description 02/14/2022 Appointment General Dentistry Bailey Castrejon, [facility] [address] [place], [place] [phone] (Wo rk) Scheduled Referrals Name Type Priority Associated Diagnoses Order S niki NURSE APPOINTMENT Referral Routine Essential hypertension Ordered: 11/07/2016 ADULT/PEDS [[id number]] documented as of this encounter Visit Diagnoses Diagnosis Essential hypertension (HRC) - Primary Unspecified essential hypertension documented in this encounter Care Teams Inbound Sales Representative Relationship Specialty Start Date End Date Kristine Brown MD PCP - General Family Practice 03/25/13 [address] [place] [address] documented as of this encounter
--- OUTSIDE RECORDS SUMMARY | 2022-02-11 08:54 | XMS_ITS | Encounter Summary ---
:1945 Author Organization [facility] Address [address] [place] [address] Care Team Providers Name Role Phone Phillip Lopez MD Primary Care Provider Reason for Visit Reason Comments Refill lisinopril (ZESTRIL) 40 MG t ablet [Pharmacy Med Name: LISINOPRIL 40MG TABS] Encounter Details Date Type Department Care Team Description 08/17/2017 Refill [facility] Phillip Lopez MD Refill (lisinopril Practice [address] (ZESTRIL) 40 MG tablet [address] [place], [place] [Pharmacy Med Name: [place], [place] [address] LISINOPRIL 40MG TABS]) [phone] (Wo rk) Social History Tobacco Use Types Packs/Day Years Used Date Smoking Tobacco: Former Cigarettes 1 9 Quit : 04/24/1971 Smokeless Tobacco: Never Alcohol Use Standard Drinks/Week Comments Yes 4.2 (1 standard drink = 0.6 oz pure alco hol) occ Sex Assigned at Date Recorded Not on file documented as of this encounter Nursing Notes Thelma Rubio RN - 08/18/2017 9:16 AM CDT Refilled per standing order. Thelma Rubio RN Interface, Out Surescripts Prov Query - 08/17/2017 4:01 PM CDT lisinopril (ZESTRIL) 40 MG tablet [Pharmacy Med Name: LISINOPRIL 40MG TABS] Cardiovascular - Randy Inhibitors -> Refill x 3 months (courtesy refill, overdue for a(n) K check) Last qualifying visit: 11/07/2016 (in Family Practice) Next scheduled visit: None Last ordered by PHILLIP LOPEZ S: 04/15/2016 (489 days ago) QTY: 90, Refills: 3, Sig: take 1 tab by mouth daily. (changed but equivalent) SBP: 139 mm Hg on 11/07/2016 DBP: 85 mm Hg on 11/07/2016 Cr: 1.02 mg/dL on 07/26/2017 K: 4.3 mEq/L on 07/14/2016 Powered by [employer], Reference: [id number], 08/17/2017 4:01:06 PM CDT, Pool: ABARCA RN ([id number]) Interface, Out CheckPoint HR Query - 08/17/2017 4:01 PM CDT The [...] goal. Continue the allopurinol. Thanks.Prateek Britton MD documented in this encounter Plan of Treatment Upcoming Encounters Date Type Specialty Care Team Description 02/14/2022 Appointment General Dentistry Bailey Castrejon, [facility] [address] [place], [place] [phone] (Wo rk) documented as of this encounter Visit Diagnoses Not on filedocumented in this encounter Care Teams State Auditor Relationship Specialty Start Date End Date Phillip Lopez MD PCP - General Family Practice 03/25/13 [address] [place], [place] [phone] documented as of this encounter
--- OUTSIDE RECORDS SUMMARY | 2022-02-11 08:54 | XMS_ITS | Encounter Summary ---
:1945 Author Organization [employer] Address [address] [place] [address] Care Team Providers Name Role Phone Kristine Brown MD Primary Care Provider Reason for Referral Consult/Transfer Care (Routine) - Closed Specialty Diagnoses / Procedures Referred By Contact Refer red To Contact Family Medicine Diagnoses Essential hypertension (HRC) Prateek Britton MD Family Practice [address] [address] [place] [address] [place] [address] Phone: Fax: Referral ID Status Reason Start Date Expiration Date Visits Requ ested Visits Authorized [id number] Closed 10/26/2016 01/25/2018 1 1 Scheduling Instructions Your provider has recommended an appoint ment to follow up on your high blood pressure. A scheduler conveyor will contact you t o assist you in setting up this appointment. If you prefer, you can contact your [facility] clinic to schedule. There are no co-pays for medication therapy managemen t (clinical pharmacist) or nurse blood pressure checks. Reason for Visit Reason Comments Revisit Encounter Details Date Type Department Care Team Description 10/26/2016 Office Visit [facility] [address] Prateek Britton G out, unspecified cause, unspecified chronicity, unspecified site (Primary Dx); Rheumatology Clinic Essential hypertension [address] [place] [address] DARRION TRISTAN [phone] Social History Tobacco Use Types Packs/Day Years Used Date Smoking Tobacco: Former Cigarettes 1 9 Quit : 04/24/1971 Smokeless Tobacco: Never Alcohol Use Standard Drinks/Week Comments Yes 4.2 (1 standard drink = 0.6 oz pure alco hol) occ Sex Assigned at Date Recorded Not on file documented as of this encounter Last Filed Vital Signs Vital Sign Reading Time Taken Comments Blood Pressure 133/91 10/26/2016 8:54 AM CDT Pulse 87 10/26/2016 8:54 AM CDT Temperature - - Respiratory Rate - - Oxygen Saturation - - Inhaled Oxygen Concentration - - Weight 107 kg (236 lb) 10/26/2016 8:41 AM CDT Height 182.9 cm (6') 10/26/2016 8:41 AM CDT Body Mass Index 32.01 10/26/2016 8:41 AM CDT documented in this encounter Patient Instructions Patient InstructionsBertPrateek MD - 10/26/2016 9:00 AM CDT I would like you to to get some blood work today. Continue allopurinol 100 mg daily and prednisone 5 mg daily. We will likely have to increase your allopurinol further but we will check and see what your uric acid level is today. Call me with any issues. __ Gout is caused by having an excessive amount of a (normal) chemical called uric acid in the body. When uric acid levels become too high, they can cause the production of small crystals - especially in joints - that can lead to inflammation. -- the primary cause for elevated uric acid in people of who have gout is genetic (familial), likely related to being unable to get rid of uric acid from the kidneys as well as those who don't have gout -- uric acid can also build up due to diet -- primarily beer and alcohol, red/organ meats, and seafoods --, having kidney disease, or due to certain medications. Ultimately, the way we manage gout is twofold: 1. Managing acute flares -- if you develop any acute flares, there are a few options to best managethis and what is used usually depends upon a few variables (such as history of kidney disease, severity of gout). Usual medicines for this include NSAIDs or prednisone or with local injection. 2. Manage the uric acid -- this we treat with a medicine called allopurinol, which lowers the uric acid level in the blood. The goal level for uric acid in someone with gout is usually less than 6.0. Allopurinol is taken once daily. It is a relatively safe medicine, though there is a very rare sideeffect for development of a severe rash (<04/999 risk) so if any new rash while taking this medicine, you should stop it and call our clinic. We do follow your liver tests and blood counts as sometimes these can change when first starting this medicine. The most common side effect of allopurinol is that it can actually INCREASE the risk for gout flares in the first few months. This is due to the action of lowering the uric acid. Therefore, we do add another medicine (daily colchicine or NSAID) tohelp prevent the flares from occuring until your uric acid is at goal. Allopurinol should be continued indefinitely for someone with a history of gout, as stopping this medicine can lead to gout flares. Colchicine, as described above is a common medicine used to prevent a flare of gout when we start amedicine like allopurinol. We usually recommend a low dose, 1 tab a day, as preventative. Most tolerate this well, primary thing to watch for with this is loose stools/diarrhea. It should not be take (or dose reduced) in those with kidney failure. Diet is also important - moreso for preventing flares of the gout due to large swings in uric acid.I usually recommend avoiding large meals of organ meats or seafoods (shellfish), cutting down on fructose-containing sodas/juices, as well as keeping alcohol use to <2/day. Information Site: http://www.rheumatology.org/practice/clinical/patients/diseases_and_conditions/g out.asp documented in this encounter Progress Notes Prtaeek Britton MD - 10/26/2016 9:00 AM CDT [facility] Rheumatology Outpatient Consultation Report Date: 10/26/16 Reason for Visit: f/u for gout History of Present Illness: Armen Crump is a 71 y.o. male who presents for f/u for [...] ARNIE, negative rheumatoid factor, negative Lyme antibody. Interim hx: After last visit we had started the [...] his last uric acid level being 7.4. Review of Systems: Gen - no history for fevers/chills GI - had some nausea and diarrhea from colchicine Skin - Denies rashes MSK - per above Past Medical History: Active Ambulatory Problems Diagnosis Date Noted ??? HTN (hypertension) ([facility]) Nurse managed 04/09/2013 ??? History of basal cell cancer 01/16/2015 ??? Prediabetes 02/16/2015 Resolved Ambulatory Problems Diagnosis Date Noted ??? No Resolved Ambulatory Problems No Additional Past Medical History Outpatient Medications: Outpatient Medications Prior to Visit Medication Sig Dispense Refill ??? allopurinol (ZYLOPRIM) 100 MG tablet Take 1 Tab by mouth daily. 90 Tab 3 ??? amLODIPine (NORVASC) 10 MG tablet Take 0.5 Tabs by mouth daily. 45 Tab 3 ??? colchicine (AKA MITIGARE) 0.6 MG capsule Take 1 Cap by mouth daily. (Patient not taking: Reported on 10/26/2016) 90 Cap 3 ??? colchicine (COLCRYS) 0.6 MG tablet Take 1 Tab by mouth daily. (Patient not taking: Reported on 10/26/2016) 30 Tab 3 ??? lisinopril (ZESTRIL) 40 MG tablet Take 1 Tab by mouth daily. 90 Tab 3 ??? Multiple Vitamins-Iron (MULTIVITAMIN/IRON OR) ??? predniSONE (DELTASONE) 20 MG tablet Take 2 Tabs by mouth daily. (Patient not taking: Reported on07/27/2016) 14 Tab 0 ??? predniSONE (DELTASONE) 5 MG tablet Take 1 Tab by mouth daily. 90 Tab 1 No facility-administered medications prior to visit. Social History: Smoking history - denies EToh/drug history - occasional ETOH use, denies illicits Family History: Denies history for known autoimmune disorders, including lupus, rheumatoid arthritis Denies family hx of gout Objective: Filed Vitals: 10/26/16 0841 BP: (!) 142/86 Pulse: 80 Weight: 236 lb (107 kg) Height: 6' (1.829 m) General: pleasant, comfortable; ambulates without difficulty HEENT: no scalp rash; no facial rash; no ocular inflammatio Neck: supple Lymph/Ext: no peripheral edema Skin: no rashes Neuro - strength and sensation is grossly intact and symmetric throughout MSK - Soft tissue: no tophi Elbow - full ROM and no joint effusion on exam; nontender bilaterally Wrist - full ROM and no joint effusion on exam; nontender joints bilaterally Hand - T0S0 of bilateral DIPs, PIPs, MCP joints. 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 male who is presenting for f/u [...] benefit from urate lowering therapy. Started allopurinol and colchicine for prophylaxis 07/2016. -Continue allopurinol 100 mg daily -Continue colchicine 0.6 mg daily -Will check uric acid level today and likely need to increase his allopurinol further RTC in 3 months Prateek Britton MD 10/26/16, 8:41 AM documented in this encounter Plan of Treatment Upcoming Encounters Date Type Specialty Care Team Description 02/14/2022 Appointment General Dentistry Bailey Castrejon, [address] [place] [address] (Wo rk) Scheduled Referrals Name Type Priority Associated Diagnoses Order S chedule Hypertension (HTN) Referral Routine Essential hypertension Ordered: 10/26/2016 Follow Up ([id number]) documented as of this encounter Visit Diagnoses Diagnosis Gout, unspecified cause, unspecified chr onicity, unspecified site - Primary Essential hypertension (HRC) Unspecified essential hypertension documented in this encounter Care Teams Cone Winder Relationship Specialty Start Date End Date Kristine Brown MD PCP - General Family Practice 03/25/13 [address] [place] [address] documented as of this encounter
--- OUTSIDE RECORDS SUMMARY | 2022-02-11 08:54 | XMS_ITS | Encounter Summary ---
:1945 Author Organization [facility] Address [address] [place] [address] Care Team Providers Name Role Phone Kristine Brown MD Primary Care Provider Encounter Details Date Type Department Care Team Description 08/12/2016 Lab Visit [facility] ory Gout, unspecified cause, [address] [facility] unspecified chronicity, [place], [place] [address] unspecified site [phone] Social History Tobacco Use Types Packs/Day Years [...] Team Description 02/14/2022 Appointment [facility] [address] [place] [address] (Wo rk) documented as of this encounter Procedures Procedure Name Priority Date/Time Associated Diagnosis Comme nts CREATININE / GFR Routine 08/12/2016 7:53 AM Gout, unspecified Results for this CDT cause, unspecified procedure are in chronicity, the results unspecified site section. COMPLETE BLOOD Routine 08/12/2016 7:53 AM Gout, unspecified Re sults for this COUNT-W/DIFF CDT cause, unspecified procedure are in chronicity, the results unspecified site section. URIC ACID Routine 08/12/2016 7:53 AM Gout, unspecified Resu lts for this CDT cause, unspecified procedure are in chronicity, the results unspecified site section. ALT (SGPT) Routine 08/12/2016 7:53 AM Gout, unspecified Resu lts for this CDT cause, unspecified procedure are in chronicity, the results unspecified site section. AST Routine 08/12/2016 7:53 AM Gout, unspecified Resu lts for this CDT cause, unspecified procedure are in chronicity, the results unspecified site section. documented in this encounter Results (ABNORMAL) Uric Acid (08/12/2016 7:53 AM CDT) P athologist Signature Uric Acid 7.4 (H) 3.5 - 7.2 [facility] mg/dl Specimen Anatomical Collection Method Collection Time Receive d Time (Source) Location / / Volume Laterality 08/12/2016 7:53 AM 7 7:54 CDT AM CDT Narrative [facility] - 08/12/2016 12:22 PM CDT Performed at [facility], [address] [place] [address] ??[phone] Prateek Britton MD LAB_1 Performing Organization Address City/State/ZIP Code Phon e Number [facility] [phone] (ABNORMAL) Creatinine / GFR (08/12/2016 7:53 AM CDT) [facility] gist Method Time Signature Creatinine 1.27 (H) 0.73 - [facility] 1.18 [facility] mg/dl GFR, Estimated 57 (L) >60 [facility] ml/min/1. [facility] 73m2 Comment: The National Kidney Disease Education Pr ogram suggests measuring Cystatin C in patients with eGFRcrea of 45 to 59 ml/min/1.73^2 who do not have other markers of kidney damage (i.e.,elevated urine Albumin/Creatinine Ratio or a prior Cys tatin C confirming the presence of Chronic Kidney Disease.) GFR, Est., If Black >60 >60 ml/min/1.73m2 [facility] Specimen Anatomical Collection Method Collection Time Receive d Time (Source) Location / / Volume Laterality 08/12/2016 7:53 AM 7 7:54 CDT AM CDT Narrative [facility] - 08/12/2016 12:22 PM CDT Performed at [facility], [address] [place] [address] ??[phone] Prateek Britton MD LAB_1 Performing Organization Address [facility] Phon e Number [facility] [phone] ALT (SGPT) (08/12/2016 7:53 AM CDT) P athologist Signature ALT (SGPT) 31 0 - 55 U/L [facility] Specimen Anatomical Collection Method Collection Time Receive d Time (Source) Location / / Volume Laterality 08/12/2016 7:53 AM 7 7:54 CDT AM CDT Narrative [facility] - 08/12/2016 12:22 PM CDT Performed at [facility], [address] [place] [address] ??[phone] Prateek Britton MD LAB_1 Performing Organization Address [facility] Phon e Number [facility] [phone] AST (08/12/2016 7:53 AM CDT) P athologist Signature AST (SGOT) 23 10 - 40 U/L [facility] Specimen Anatomical Collection Method Collection Time Receive d Time (Source) Location / / Volume Laterality 08/12/2016 7:53 AM 7 7:54 CDT AM CDT Narrative [facility] - 08/12/2016 12:22 PM CDT Performed at [facility], [address] [place] [address] ??[phone] Prateek Britton MD LAB_1 Performing Organization Address City/[facility] Phon e Number [facility] [phone] (ABNORMAL) Complete Blood Count-W/Diff (08/12/2016 7:53 AM CDT) Patholo gist Method Time Signature WBC 3.0 (L) 4.0 - [facility] 11.0 k/ul [facility] RBC 5.87 4.5 - 5.9 [facility] M/ul [facility] Hemoglobin 17.6 (H) 13.5 - [facility] 17.5 g/dl [facility] HCT 52.4 41.0 - [facility] 53.0 % [facility] MCV 89.3 80 - 100 [facility] fl [facility] MCH 30.0 26 - 34 [facility] pg [facility] MCHC 33.6 32 - 36 [facility] g/dl [facility] RDW 13.5 11.5 - [facility] 14.5 % [facility] Platelets 173 150 - 450 [facility] k/ul [facility] PMN/Band 48 % [facility] Lymph 26 % [facility] Gage 19 % [facility] Eos 6 % [facility] Baso 0 % [facility] Neutrophil 1.4 (L) 1.8 - 7.7 [facility] Absolute k/ul [facility] Lymph Absolute 0.8 (L) 1.0 - 4.8 [facility] k/ul [facility] Gage Absolute 0.6 0.1 - 0.7 [facility] k/ul [facility] Eos Absolute 0.2 0.0 - 0.5 [facility] k/ul [facility] Baso Absolute 0.0 0.0 - 0.2 [facility] k/ul [facility] Immature Gran 1 % [facility] Imm Gran 0.0 0 k/ul [facility] Absolute [facility] Specimen Anatomical Collection Method Collection Time Receive d Time (Source) Location / / Volume Laterality 08/12/2016 7:53 AM 7 7:54 CDT AM CDT Narrative [facility] - 08/12/2016 1:36 PM C DT Performed at [facility], [address] [place] [address] ??[phone] Prateek Britton MD LAB_1 Performing Organization Address City/State/ZIP Code Phon e Number [facility] [phone] documented in this encounter Visit Diagnoses Diagnosis Gout, unspecified cause, unspecified chr onicity, unspecified site documented in this encounter Care Teams Recruiter Relationship Specialty Start Date End Date Kristine Brown MD PCP - General Family Practice 03/25/13 [address] [place] [address] documented as of this encounter
--- OUTSIDE RECORDS SUMMARY | 2022-02-11 08:54 | XMS_ITS | Encounter Summary ---
:1945 Author Organization [facility] Address [address] [place] [address] Care Team Providers Name Role Phone Kristine Brown MD Primary Care Provider Encounter Details Date Type Department Care Team Description 10/26/2016 Telephone Specialty Center 401 Emma Britton MD Rheumatology Clinic [address] [place], [place] [address] [place] [address] [phone] Social History Tobacco Use Types Packs/Day Years Used Date Smoking Tobacco: Former Cigarettes 1 9 Quit : 04/24/1971 Smokeless Tobacco: Never Alcohol Use Standard Drinks/Week Comments Yes 4.2 (1 standard drink = 0.6 oz pure alco hol) occ Sex Assigned at Date Recorded Not on file documented as of this encounter Nursing Notes Elana Coughlin CMA - 10/26/2016 3:44 PM CDT Spoke with patient, pt understood message. No further concerns or questions at this time. Pt states he does NOT need a refill at this time, but when he does he will call the pharmacy. Elana Coughlin CMA 10/26/2016, 3:46 PM Prateek Britton MD - 10/26/2016 3:41 PM CDT Please let patient know that his blood counts are normal, liver enzymes are normal, kidney function is normal, and his uric acid level is close to goal. His uric acid was 6.5. I would like his uric acid to be less than six. I would like the patient increase his allopurinol to 200 mg daily. Does not need a new prescription for this? After increasing his allopurinol in two weeks Id like him to repeat blood work. Thanks. Prateek Britton MD documented in this encounter Plan of Treatment Upcoming Encounters Date Type Specialty Care Team Description 02/14/2022 Appointment General Dentistry Bailey Castrejon, [facility] [address] [place], [place] [phone] (Wo rk) documented as of this encounter Visit Diagnoses Not on filedocumented in this encounter Care Teams [employer]electric Powerplant Supervisor Relationship Specialty Start Date End Date Kristine Brown MD PCP - General Family Practice 03/25/13 [address] [place], [place] [phone] documented as of this encounter
--- OUTSIDE RECORDS SUMMARY | 2022-02-11 08:54 | XMS_ITS | Encounter Summary ---
:1945 Author Organization [employer] Address [address] [place] [address] Care Team Providers Name Role Phone Kristine Brown MD Primary Care Provider Reason for Visit Reason Comments Revisit Encounter Details Date Type Department Care Team Description 07/26/2017 Office Visit [facility] 401 rPateek Britton G out, unspecified Rheumatology Clinic cause, unspecified [address] chronicity, [place] [address] [place], [place] unspecified site [phone] (Primary Dx) Social History Tobacco Use Types [...] Pressure 143/87 07/26/2017 8:48 AM CDT Pulse 74 07/26/2017 8:48 AM CDT Temperature - - Respiratory Rate - - Oxygen Saturation - - Inhaled Oxygen Concentration - - Weight 108 kg (238 lb) 07/26/2017 8:48 AM CDT Height - - Body Mass Index 32.28 2017 2:30 PM CDT documented in this encounter Patient Instructions Patient InstructionsPrateek Britton MD - 07/26/2017 8:20 AM CDT Continue the allopurinol 200 mg daily. Call me with any issues. __ Gout [...] out.asp documented in this encounter Progress Notes Prateek Britton MD - 07/26/2017 8:[address] [facility] Rheumatology Outpatient Consultation Report Date: 07/26/17 Reason for Visit: f/u for gout History [...] his last uric acid level being 7.4. 01/2017: Patient states that he has been feeling well. He has not had any flares of his gout. His last uric acid was still above goal at 6.5 but his allopurinol was increased to 200 mg after that check. He didnot get a repeat uric acid level checked. He states that he also stopped prednisone for prophylaxis.He otherwise has been feeling great. Interim hx: Patient states that he has not had any flares since last visit. He denies any any warmth, redness, swelling of any joints. He is tolerating the allopurinol 300 mg daily without side effects. He is happy with how things are going. Review of Systems: Gen - no history for fevers/chills Skin - Denies rashes MSK - per above Past Medical History: Active Ambulatory Problems Diagnosis Date Noted ??? HTN (hypertension) ([facility]) 04/09/2013 ??? History of basal cell cancer 01/16/2015 ??? Prediabetes 02/16/2015 Resolved Ambulatory Problems Diagnosis Date Noted ??? No Resolved Ambulatory Problems Past Medical History: Diagnosis Date ??? BP (high blood pressure) ??? Caries Outpatient Medications: Outpatient Medications Prior to Visit Medication Sig Dispense Refill ??? allopurinol (ZYLOPRIM) 300 MG tablet Take 1 Tab by mouth daily. 90 Tab 3 ??? amLODIPine (NORVASC) 10 MG tablet Take 1 Tab by mouth daily. 90 Tab 3 ??? lisinopril (ZESTRIL) 40 MG tablet Take 1 Tab by mouth daily. 90 Tab 3 ??? Multiple Vitamins-Iron (MULTIVITAMIN/IRON OR) ??? predniSONE (DELTASONE) 5 MG tablet TAKE ONE TABLET BY MOUTH EVERY DAY (Patient not taking: Reported on 07/12/2017) 90 Tab 1 No facility-administered medications prior to visit. Social History: Smoking history - denies EToh/drug history - occasional ETOH use, denies illicits Family History: Denies history for known autoimmune disorders, including lupus, rheumatoid arthritis Denies family hx of gout Objective: Filed Vitals: 07/26/17 0848 BP: (!) 143/87 Pulse: 74 Weight: 238 lb (108 kg) General: pleasant, comfortable; ambulates without difficulty HEENT: [...] of bilateral DIPs, PIPs, MCP joints. 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 Currently on allopurinol 300 mg daily. Last uric acid level was 6.0. -check uric acid level today -Continue allopurinol 300 mg daily -goal uric acid level is < 6.0 RTC in 12 months Prateek Britton MD 07/26/17, 8:44 AM documented in this encounter Plan of Treatment Upcoming Encounters Date Type Specialty Care Team Description 02/14/2022 Appointment General Dentistry Bailey Castrejon, [facility] [address] [place], [place] [phone] (Wo rk) documented as of this encounter Procedures Procedure Name Priority Date/Time Associated Diagnosis Comme nts CREATININE / GFR Routine 07/26/2017 9:04 AM Gout, unspecified Results for this CDT cause, unspecified procedure are in chronicity, the results unspecified site section. COMPLETE BLOOD Routine 07/26/2017 9:04 AM Gout, unspecified Re sults for this COUNT-W/DIFF CDT cause, unspecified procedure are in chronicity, the results unspecified site section. URIC ACID Routine 07/26/2017 9:04 AM Gout, unspecified Resu lts for this CDT cause, unspecified procedure are in chronicity, the results unspecified site section. ALT (SGPT) Routine 07/26/2017 9:04 AM Gout, unspecified Resu lts for this CDT cause, unspecified procedure are in chronicity, the results unspecified site section. AST Routine 07/26/2017 9:04 AM Gout, unspecified Resu lts for this CDT cause, unspecified procedure are in chronicity, the results unspecified site section. documented in this encounter Results Uric Acid (07/26/2017 9:04 AM CDT) P athologist Signature Uric Acid 5.2 3.5 - 7.2 [facility] mg/dl Specimen Anatomical Collection Method Collection Time Receive d Time (Source) Location / / Volume Laterality 07/26/2017 9:04 AM 8 9:05 CDT AM CDT Narrative [facility] - 07/26/2017 12:44 PM CDT Performed at [facility], [address] [place] [address] ??[phone] Prateek Britton MD LAB_1 Performing Organization Address City/[facility] Phon e Number [facility] [phone] Creatinine / GFR (07/26/2017 9:04 AM CDT) Analysis Performed At Patho logist Time Signature Creatinine 1.02 0.73 - [facility] 1.18 mg/dl [facility] GFR, Estimated >60 >60 [facility] ml/min/1.7 [facility] 3m2 GFR, Est., If >60 >60 [facility] Black ml/min/1.7 [facility]ATORIES 3m2 Specimen Anatomical Collection Method Collection Time Receive d Time (Source) Location / / Volume Laterality 07/26/2017 9:04 AM 8 9:05 CDT AM CDT Narrative [facility] - 07/26/2017 12:44 PM CDT Performed at [facility], [address] [place] [address] ??[phone] Prateek Britton MD LAB_1 Performing Organization Address City/[facility] Phon e Number [facility] [phone] ALT (SGPT) (07/26/2017 9:04 AM CDT) P athologist Signature ALT (SGPT) 22 0 - 55 U/L [facility] Specimen Anatomical Collection Method Collection Time Receive d Time (Source) Location / / Volume Laterality 07/26/2017 9:04 AM 8 9:05 CDT AM CDT Narrative [facility] - 07/26/2017 12:44 PM CDT Performed at [facility], [address] [place] [address] ??[phone] Prateek Britton MD LAB_1 Performing Organization Address City/State/ZIP Code Phon e Number [facility] [phone] AST (07/26/2017 9:04 AM CDT) P athologist Signature AST (SGOT) 17 10 - 40 U/L [facility] Specimen Anatomical Collection Method Collection Time Receive d Time (Source) Location / / Volume Laterality 07/26/2017 9:04 AM 8 9:05 CDT AM CDT Narrative [facility] - 07/26/2017 12:44 PM CDT Performed at [facility], [address] [place] [address] ??[phone] Prateek Britton MD LAB_1 Performing Organization Address City/State/ZIP Code Phon e Number [facility] [phone] (ABNORMAL) Complete Blood Count-W/Diff (07/26/2017 9:04 AM CDT) Patholo gist Method Time Signature WBC 4.4 4.0 - [facility] 11.0 k/ul [facility] RBC 5.76 4.5 - 5.9 [facility] M/ul [facility] Hemoglobin 17.8 (H) 13.5 - [facility] 17.5 g/dl [facility] HCT 51.7 41.0 - [facility] 53.0 % [facility] MCV 89.8 80 - 100 [facility] fl [facility] MCH 30.9 26 - 34 [facility] pg [facility] MCHC 34.4 32 - 36 [facility] g/dl [facility] RDW 12.9 11.5 - [facility] 14.5 % [facility] Platelets 208 150 - 450 [facility] k/ul [facility] PMN/Band 58 % [facility] Lymph 24 % [facility] Tre[place]len 11 % [facility] Eos 5 % [facility] Baso 1 % [facility] Neutrophil 2.6 1.8 - 7.7 [facility] Absolute k/ul [facility] Lymph Absolute 1.0 1.0 - 4.8 [facility] k/ul [facility] [place] Absolute 0.5 0.1 - 0.7 [facility] k/ul [facility] Eos Absolute 0.2 0.0 - 0.5 [facility] k/ul [facility] Baso Absolute 0.0 0.0 - 0.2 [facility] k/ul [facility] Immature Gran 1 % [facility] Imm Gran 0.0 0 k/ul [facility] Absolute [facility] Specimen Anatomical Collection Method Collection Time Receive d Time (Source) Location / / Volume Laterality 07/26/2017 9:04 AM 8 9:05 CDT AM CDT Narrative [facility] - 07/26/2017 1:43 PM C DT Performed at [facility], [address] [place] [address] ??[phone] Prateek Britton MD LAB_1 Performing Organization Address City/State/ZIP Code Phon e Number [facility] [phone] documented in this encounter Visit Diagnoses Diagnosis Gout, unspecified cause, unspecified chr onicity, unspecified site - Primary documented in this encounter Care Teams Securities Dealer Relationship Specialty Start Date End Date Kristine Brown MD PCP - General Family Practice 03/25/13 [address] [place] [address] documented as of this encounter
--- OUTSIDE RECORDS SUMMARY | 2022-02-11 08:55 | XMS_ITS | Encounter Summary ---
:1945 Author Organization [email or web address] Address [address] [place] [address] Care Team Providers Name Role Phone Kristine Brown MD Primary Care Provider Reason for Visit Reason Comments Concerns right foot-gout? Health Maintenance Communication HM usually thru the V A per pt Encounter Details Date Type Department Care Team Description 05/19/2016 Office Visit [facility] Logan Espitia MD Arthralgia of right Practice [id number] [facility] foot (Primary Dx) [address] [place] [phone] Social History Tobacco Use Types Packs/Day Years Used Date Smoking Tobacco: Former Cigarettes 1 9 Quit : 04/24/1971 Smokeless Tobacco: Never Alcohol Use Standard Drinks/Week Comments Yes 4.2 (1 standard drink = 0.6 oz pure alco hol) Sex Assigned at Date Recorded Not on file documented as of this encounter Last Filed Vital Signs Vital Sign Reading Time Taken Comments Blood Pressure 140/79 05/19/2016 9:46 AM TOP FRAME MAKER Pulse 81 05/19/2016 9:46 AM TOP FRAME MAKER Temperature 37 ??C (98.6 ??F) 05/19/2016 9:41 AM TOP FRAME MAKER Respiratory Rate 14 05/19/2016 9:41 AM TOP FRAME MAKER Oxygen Saturation - - Inhaled Oxygen Concentration - - Weight 105.9 kg (233 lb 6 oz) 05/19/2016 9:41 AM TOP FRAME MAKER Height 182.2 cm (5' 11.75) 05/19/2016 9:41 AM TOP FRAME MAKER Body Mass Index 31.87 05/19/2016 9:41 AM TOP FRAME MAKER documented in this encounter Patient Instructions Patient InstructionsLogan Espitia MD - 05/19/2016 10:05 AM CST Gout: Care Instructions Your Care Instructions Gout is a form of arthritis caused by a buildup of uric acid crystals in a joint. It causes sudden attacks of pain, swelling, redness, and stiffness, usually in one joint, especially the big toe. Gout usually comes on without a cause. But it can be brought on by drinking alcohol (especially beer) or eating seafood and red meat. Taking certain medicines, such as diuretics or aspirin, also can bring on an attack of gout. Taking your medicines as prescribed and following up with your doctor regularly can help you avoid gout attacks in the future. Follow-up care is a tucker part of your treatment and safety. Be sure to make and go to all appointments, and call your doctor if you are having problems. It???s also a good idea to know your test resultsand keep a list of the medicines you take. How can you care for yourself at home? ?? If the joint is swollen, put ice or a cold pack on the area for 10 to 20 minutes at a time. Put athin cloth between the ice and your skin. ?? Prop up the sore limb on a pillow when you ice it or anytime you sit or lie down during the next 3 days. Try to keep it above the level of your heart. This will help reduce swelling. ?? Rest sore joints. Avoid activities that put weight or strain on the joints for a few days. Take short rest breaks from your regular activities during the day. ?? Take your medicines exactly as prescribed. Call your doctor if you think you are having a problemwith your medicine. ?? Take pain medicines exactly as directed. ?? If the doctor gave you a prescription medicine for pain, take it as prescribed. ?? If you are not taking a prescription pain medicine, ask your doctor if you can take an aryu-psb-[id number] medicine. ?? Eat less seafood and red meat. ?? Check with your doctor before drinking alcohol. ?? Losing weight, if you are overweight, may help reduce attacks of gout. But do not go on a crash diet. Losing a lot of weight in a short amount of time can cause a gout attack. When should you call for help? Call your doctor now or seek immediate medical care if: ?? You have a fever. ?? The joint is so painful you cannot use it. ?? You have sudden, unexplained swelling, redness, warmth, or severe pain in one or more joints. Watch closely for changes in your health, and be sure to contact your doctor if: ?? You have joint pain. ?? Your symptoms get worse or are not improving after 2 or 3 days. Where can you learn more? 1. Go to [employer] or [employer]. 2. Enter E531 in the search box. Current as of: June 17, 2015 Content Version: 11.0 ?? [id number] Strategic Funding Source. FRAME MAKER documented in this encounter Progress Notes Logan Espitia MD - 05/19/2016 1:02 PM CST SUBJECTIVE: Patient comes in with for port of right foot pain and swelling that began 3 or 4 days ago. He has been taking Aleve 440 mg once or twice a day along with Tylenol for discomfort. States he is improving and symptoms are better each day. Patient indicates that symptoms began first in the great toe and then spread into the foot and lowerleg. He states he believes he has gout although this has never been confirmed. He's had a variety of opinions on this apparently in the past. Has never had a joint aspiration. Has had similar episodes occurring in either foot. No upper extremity symptoms in the past. He was taken off thiazide diuretic couple of years ago by Dr. Brown and believes episodes occur less often. States currently has episodes once or twice a year. Symptoms began 8-10 years ago. Patient recently followed at the [facility] and underwent prostate biopsy 10 days ago which was apparently benign. He is due for lab work here but states he had lab work at the [place] in February and plans to bring those results into his primary provider, Dr. Brown. OBJECTIVE: Patient has very faint erythema to the right dorsal foot and most of the toes. There is very mild tenderness of the right great toe IP and MTP but no significant warmth. He has edema of the dorsal footand ankle. No significant discomfort with joint motion in any of these areas however. ASSESSMENT: Right foot swelling and pain which is improving. Certainly may have gouty arthropathy although this has not been confirmed. PLAN: Recommend that patient may use Aleve 440 mg twice daily or ibuprofen 60 mg 3 times a day with food for these symptoms. Tylenol may be added if needed for pain relief. Recommended return to discuss with PCP and perform uric acid level when he is not having an attack. Also recommended to try to come in to clinic during acute attack early on to consider joint aspiration. Discussed that there may be other options for acute management including colchicine, indomethacin. Also consider prophylaxis with allopurinol if diagnosis of gout confirmed. FRAME MAKER documented in this encounter Plan of Treatment Upcoming Encounters Date Type Specialty Care Team Description 02/14/2022 Appointment General Dentistry Bailey Castrejon, [facility] [address] [place], [place] [phone] (Wo rk) documented as of this encounter Visit Diagnoses Diagnosis Arthralgia of right foot - Primary Pain in joint, ankle and foot documented in this encounter Care Teams Youth Career Specialist Relationship Specialty Start Date End Date Kristine Brown MD PCP - General Family Practice 03/25/13 [address] [place] [address] documented as of this encounter
--- OUTSIDE RECORDS SUMMARY | 2022-02-11 08:55 | XMS_ITS | Encounter Summary ---
:1945 Author Organization [email or web address] Address [address], [place] [address] Care Team Providers Name Role Phone Kristine Brown MD Primary Care Provider Encounter Details Date Type Department Care Team Description 04/01/2014 Office Visit [facility] Nighat Nieto, Senile nucle ar sclerosis, bilateral (Primary Dx); Ophthalmology Myopia, bilateral [address] [place], [place] [address] [place], [place] [address] Social History Tobacco Use Types Packs/Day Years Used Date Smoking Tobacco: Former Cigarettes 1 9 Quit : 04/24/1971 Smokeless Tobacco: Never Alcohol Use Standard Drinks/Week Comments Yes 4.2 (1 standard drink = 0.6 oz pure alco hol) Sex Assigned at Date Recorded Not on file documented as of this encounter Patient Instructions Patient InstructionsBoNighat pink MD - 04/01/2014 3:21 PM CST Patient will return to clinic in 1-2 years with repeat dilated eye exam, sooner for worsening signs or symptoms. OLOGY DIRECTOR documented in this encounter Progress Notes Nighat Nieto MD - 04/01/2014 2:28 PM CST New patient to provider Armen Crump is a 69 yr old male here for evaluation of the retina (was seen at [facility] by head of digital Broderick Torres in [place] and told he may have spots on retina). Pt says his vision has improved with the new Rx. Pt denies any diabetes but is taking medication for HTN. Pt denies any itching ortearing. Pt denies any past eye injury or concerns for glaucoma. Review of Systems Const: (-) ENT: (-) Pulm: (-) Cardio: (-) GI: (-) : (-) MS: (-) Skin: (-) Neuro: (-) Heme: (-) Assessment and Plan: 1)Myopia 2)NS OU Patient will return to clinic in 1-2 years with repeat dilated eye exam, sooner for worsening signs or symptoms. OLOGY DIRECTOR documented in this encounter Plan of Treatment Upcoming Encounters Date Type Specialty Care Team Description 02/14/2022 Appointment [place] [address] [place], [place] [phone] (Wo rk) documented as of this encounter Visit Diagnoses Diagnosis Senile nuclear sclerosis, bilateral - Pr imary Myopia, bilateral Myopia documented in this encounter Care Teams Drywall Foreman Relationship Specialty Start Date End Date Kristine Brown MD PCP - General Family Practice 03/25/13 [address] [place], [place] [phone] documented as of this encounter
--- OUTSIDE RECORDS SUMMARY | 2022-02-11 08:55 | XMS_ITS | Encounter Summary ---
:1945 Author Organization [facility] Address [address] [place] [address] Care Team Providers Name Role Phone Kristine Brown MD Primary Care Provider Reason for Referral Consult/Transfer Care (Routine) - Closed Specialty Diagnoses / Procedures Referred By Contact [place] [address] [place], [place] [address] Referral ID Status Reason Start Date Expiration Date Visits Requ ested Visits Authorized [id number] Closed 11/06/2015 02/04/2017 1 1 Scheduling Instructions Your provider has recommended an appoint ment with [facility]. A soccer referee will contact you within the next 3 busin ess days to assist you in setting up this appointment. Reason for Visit Reason Comments FOLLOW-UP,BP MEDICATION CHECK Health Maintanence Declined Encounter Details Date Type Department Care Team Description 11/06/2015 Office Visit [facility] Kristine Brown MD Essential hypertension Practice [address] [place] [address] (Primary Dx) [address] [place] [address] [phone] Social History Tobacco Use Types Packs/Day Years Used Date Smoking Tobacco: Former Cigarettes 1 9 Quit : 04/24/1971 Smokeless Tobacco: Never Alcohol Use Standard Drinks/Week Comments Yes 4.2 (1 standard drink = 0.6 oz pure alco hol) Sex Assigned at Date Recorded Not on file documented as of this encounter Last Filed Vital Signs Vital Sign Reading Time Taken Comments Blood Pressure 128/81 11/06/2015 11:05 AM CDT Pulse 70 11/06/2015 11:05 AM CDT Temperature - - Respiratory Rate - - Oxygen Saturation - - Inhaled Oxygen Concentration - - Weight 106.6 kg (235 lb) 11/06/2015 10:27 AM CDT Height 180.3 cm (5' 11) 11/06/2015 10:27 AM CDT Body Mass Index 32.78 11/06/2015 10:27 AM CDT documented in this encounter Progress Notes Kristine Brown MD - 11/06/2015 10:52 AM CDT Chief Complaint Patient presents with ??? FOLLOW-UP,BP ??? MEDICATION CHECK ??? Health Maintanence Declined 70 yo M here for f/u HTN. Taking and tolerating amlodipine 5mg and lisinopril 40mg daily without SE's. Denies SOB, chest pain/pressure/tightness, lightheadedness/dizziness/passing out, DURANT's. Allergies Allergen Reactions ??? Oxycodone Other, see comments Patient refuses to take it due to family addiction issues. ROS: see above for pertinents. BP 128/81 mmHg Pulse 70 Ht 5' 11 (1.803 m) Wt 235 lb (106.595 kg) BMI 32.79 kg/m2 General: patient appears well, alert and oriented x 3, pleasant, cooperative. Chest: clear to IPPA. Heart: heart sounds are normal, no murmurs. Ext: no LE edema b/l. A/P: 1. HTN: sub optimal control-continue lisinopril, increase to amlodipine 10mg PO Qdaily. RTC in 2-3 for repeat BP check/NV. Kristine Brown MD 11/09/2015, 1:22 PM documented in this encounter Plan of Treatment Upcoming Encounters Date Type Specialty Care Team Description 02/14/2022 Appointment General Dentistry Bailey Castrejon, [facility] [address] [place] [address] (Wo rk) Scheduled Referrals Name Type Priority Associated Diagnoses Order S niki NURSE APPOINTMENT Referral Routine Ordered: 0 11/06/2015 ADULT/PEDS [[id number]] documented as of this encounter Visit Diagnoses Diagnosis Essential hypertension ([facility]) - Primary Unspecified essential hypertension documented in this encounter Care Teams Pole Cutter Relationship Specialty Start Date End Date Kristine Brown MD PCP - General Family Practice 03/25/13 [address] [place] [address] documented as of this encounter
--- OUTSIDE RECORDS SUMMARY | 2022-02-11 08:55 | XMS_ITS | Encounter Summary ---
:1945 Author Organization [employer] Address [address] [place] [address] Care Team Providers Name Role Phone Kristine Brown MD Primary Care Provider Encounter Details Date Type Department Care Team Description 07/14/2016 Lab Visit [facility] Encounter for long-term (cur rent) use of medications; [address] [facility] [place], [place] [address] Social History Tobacco Use Types Packs/Day Years Used Date Smoking Tobacco: Former Cigarettes 1 9 Quit : 04/24/1971 Smokeless Tobacco: Never Alcohol Use Standard Drinks/Week Comments Yes 4.2 (1 standard drink = 0.6 oz pure alco hol) Sex Assigned at Date Recorded Not on file documented as of this encounter Progress Notes Thaddeus Rodriguez MD - 07/15/2016 6:01 PM CDT Quick Note: Your lab results are consistent with gout. Follow up if not improving. Thaddeus Rodriguez MD 07/15/2016, 6:01 PM documented in this encounter Plan of Treatment Upcoming Encounters Date Type Specialty Care Team Description 02/14/2022 Appointment General Dentistry Bailey Castrejon, [facility] [address] [place] [address] (Wo rk) documented as of this encounter Procedures Procedure Name Priority Date/Time Associated Comments Diagnosis BASIC METABOLIC PANEL Routine 07/14/2016 2:41 PM Arthritis Results for this CDT procedure are i n the results section. RHEUMATOID FACTOR, Routine 07/14/2016 2:41 PM Arthritis Res ults for this QUANT CDT procedure are i n the results section. LYME ANTIBODY (REFLEX Routine 07/14/2016 2:41 PM Arthritis Results for this TO LYME CONFIRMATORY CDT procedu re are in PANEL) the results section. C-REACTIVE PROTEIN Routine 07/14/2016 2:41 PM Arthritis Res ults for this CDT procedure are i n the results section. ARNIE SCREEN Routine 07/14/2016 2:41 PM Arthritis Results f or this CDT procedure are i n the results section. URIC ACID Routine 07/14/2016 2:41 PM Arthritis Results f or this CDT procedure are i n the results section. ESR Routine 07/14/2016 2:41 PM Arthritis Results f or this CDT procedure are i n the results section. documented in this encounter Results Lyme Antibody, and Western Blot If Needed) (07/14/2016 2:41 PM CDT) Component Value Ref Test Analysis Performed At [facility] gist Range Method Time Signature Lyme Negative [facility] Interpretation Reference range: Negative LABORATORIES Lyme Units <0.01 [facility] Reference range: 0.00 to 0.90 LABORATORIES Lyme Units (NOTE) [facility] The magnitude of the measured result, above the cutoff, is LABORATORIES not indicative of the amount of antibody present. Specimen Anatomical Collection Method Collection Time Receive d Time (Source) Location / / Volume Laterality 07/14/2016 2:41 PM 7 2:44 CDT PM CDT Narrative [facility] - 07/15/2016 10:59 AM CDT Performed at [facility], [address] [place] [address] Thaddeus Rodriguez MD LAB_1 Performing Organization Address City/State/ZIP Code Phon e Number [facility] [phone] Rheumatoid Factor, Quant (07/14/2016 2:41 PM CDT) athologist Signature Quant. Rheum. <15 0 - 30 [facility] Factor IU/ml LABORATORIES Specimen Anatomical Collection Method Collection Time Receive d Time (Source) Location / / Volume Laterality 07/14/2016 2:41 PM 7 2:44 CDT PM CDT Narrative [facility] - 07/14/2016 6:55 PM C DT Performed at [facility], [address] [place] [address] ??[phone] Thaddeus Rodriguez MD LAB_[address] [facility] Code Phon e Number [facility] [phone] ARNIE Screen (07/14/2016 2:41 PM CDT) P athologist Signature ARNIE Screen Negative NEG [facility] Specimen Anatomical Collection Method Collection Time Receive d Time (Source) Location / / Volume Laterality 07/14/2016 2:41 PM 7 2:44 CDT PM CDT Narrative [facility] - 07/15/2016 1:24 PM C DT Performed at [facility], [address] [place] [address] ??[phone] Thaddeus Rodriguez MD LAB_1 Performing Organization [address] [facility] Phon e Number [facility] [phone] (ABNORMAL) C-Reactive Protein (07/14/2016 2:41 PM CDT) Patholo gist Method Time Signature C-Reactive 4.1 (H) 0.0 - 0.7 [facility] Protein mg/dL LABORATORIES Comment: Note: results are expressed in mg/dL. Specimen Anatomical Collection Method Collection Time Receive d Time (Source) Location / / Volume Laterality 07/14/2016 2:41 PM 7 2:44 CDT PM CDT Narrative [facility] - 07/14/2016 6:58 PM C DT Performed at [facility], [address] [place] [phone] Thaddeus Rodriguez MD LAB_1 Performing Organization Address City/[facility] Phon e Number [facility] [phone] Basic Metabolic Panel (07/14/2016 2:41 PM CDT) Analysis Performed At Patho logist Time Signature Sodium 141 136 - 145 [facility] mmol/L [facility] Potassium 4.3 3.5 - 5.1 [facility] mmol/L [facility] Chloride 104 98 - 109 [facility] mmol/L [facility] CO2 28 20 - 29 [facility] mmol/L [facility] Anion Gap 9 7 - 16 [facility] (calc.) mmol/L [facility] Glucose 102 70 - 180 [facility] mg/dl [facility] Calcium 9.9 8.4 - 10.2 [facility] mg/dl [facility] BUN 15 7 - 26 [facility] mg/dl [facility] Creatinine 1.18 0.73 - [facility] 1.18 mg/dl LAB[facility]ATORIES GFR, Estimated >60 >60 [facility] ml/min/1.7 LAB[facility]ATORIES 3m2 GFR, Est., If >60 >60 [facility] Black ml/min/1.7 LABORATORIES 3m2 Specimen Anatomical Collection Method Collection Time Receive d Time (Source) Location / / Volume Laterality 07/14/2016 2:41 PM 7 2:44 CDT PM CDT Narrative [facility] - 07/14/2016 6:58 PM C DT Performed at [facility], [address] [place] [phone] Thaddeus Rodriguez MD LAB_1 Performing Organization [address] [facility] Phon e Number [facility] [phone] ESR (07/14/2016 2:41 PM CDT) P athologist Signature ESR 2 0 - 15 [facility] mm/hr Specimen Anatomical Collection Method Collection Time Receive d Time (Source) Location / / Volume Laterality 07/14/2016 2:41 PM 7 2:44 CDT PM CDT Narrative [facility] - 07/14/2016 9:09 PM C DT Performed at [facility], [address] [place] [address] ??[phone] Thaddeus Rodriguez MD LAB_1 Performing Organization Address City/[facility]/ZIP Code Phon e Number [facility] [phone] (ABNORMAL) Uric Acid (07/14/2016 2:41 PM CDT) P athologist Signature Uric Acid 7.5 (H) 3.5 - 7.2 [facility] mg/dl Specimen Anatomical Collection Method Collection Time Receive d Time (Source) Location / / Volume Laterality 07/14/2016 2:41 PM 7 2:44 CDT PM CDT Narrative [facility] - 07/14/2016 6:58 PM C DT Performed at [facility], [address] [place] [address], [place], [place] ??[phone] Thaddeus Rodriguez MD LAB_1 Performing Organization Address City/State/ZIP Code Phon e Number [facility] [phone] documented in this encounter Visit Diagnoses Diagnosis Encounter for long-term (current) use of medications Encounter for long-term (current) use of other medications Arthritis Arthropathy, unspecified, site unspecifi ed documented in this encounter Care Teams Transit Manager Relationship Specialty Start Date End Date Kristine Brown MD PCP - General Family Practice 03/25/13 [address] [place] [address] documented as of this encounter
--- OUTSIDE RECORDS SUMMARY | 2022-02-11 08:55 | XMS_ITS | Encounter Summary ---
:1945 Author Organization [employer] [facility] Address [address] [place] [address] Care Team Providers Name Role Phone Unassigned, Provider Primary Care Provider Unavailable Reason for Visit Reason Comments BLOOD PRESSURE CHECK Encounter Details Date Type Department Care Team Description 11/30/[address] [facility] (Primary Practice [address] [facility] Dx) [address] [place] [address] [phone] Social History Tobacco Use Types Packs/Day Years Used Date Smoking Tobacco: Former Cigarettes 1 9 Quit : 04/24/1971 Smokeless Tobacco: Never Alcohol Use Standard Drinks/Week Comments Yes 4.2 (1 standard drink = 0.6 oz pure alco hol) Sex Assigned at Date Recorded Not on file documented as of this encounter Last Filed Vital Signs Vital Sign Reading Time Taken Comments Blood Pressure 138/86 11/30/2012 10:03 AM CDT Pulse 88 11/30/2012 10:03 AM CDT Temperature - - Respiratory Rate 12 11/30/2012 9:56 AM CDT Oxygen Saturation - - Inhaled Oxygen Concentration - - Weight 105 kg (231 lb 6.4 oz) 11/30/2012 9:56 AM CDT wi th shoes Height - - Body Mass Index 32.05 10/15/2012 10:07 AM CDT documented in this encounter Patient Instructions Patient InstructionsKristine Brown MD - 11/30/2012 10:17 AM CDT Please schedule a lab only visit and nursing blood pressure visit in one month. documented in this encounter Progress Notes Kristine Brown MD - 11/30/2012 7:22 PM CDT Chief Complaint Patient presents with ??? BLOOD PRESSURE CHECK 67 yo M here for BP check. He's been taking his BP's-usually running in low 120's/low 80's. Usually taking his medications as prescribed-he did not take this AM. He is not aware of having decreased kidney function in the past. He does state that he does not drink fluids during the day-thinks that he was dehydrated during BW showing some slightly decreased kidney function in 11/19/12 relative to BW in 10/15/12. Denies any associated symptoms. Allergies Allergen Reactions ??? Oxycodone Other, see comments ROS: see above for pertinents. BP 138/86 Pulse 88 Resp 12 Wt 231 lb 6.4 oz (104.962 kg) BMI 32.04 kg/m2 General: He appears well, alert and oriented x 3, pleasant and cooperative. Chest: clear to IPPA. Heart: sounds are normal, no murmurs. Ext: no LE edema b/l. A/P: 1. HTN: medication compliance stressed. He will schedule a f/u lab visit and nursing visit for BP check in one month.Kristine Brown MD 12/01/2012, 11:56 AM documented in this encounter Plan of Treatment Upcoming Encounters Date Type Specialty Care Team Description 02/14/2022 Appointment General Dentistry Bailey Castrejon, [facility] [address] [place], [place] [id number] (Wo rk) documented as of this encounter Visit Diagnoses Diagnosis Hypertension (HRC) - Primary Unspecified essential hypertension documented in this encounter Care Teams Internal Medicine Doctor Relationship Specialty Start Date End Date Unassigned, Provider PCP - General 01/26/00 03/24/[address] [place] [address] documented as of this encounter
--- OUTSIDE RECORDS SUMMARY | 2022-02-11 08:55 | XMS_ITS | Encounter Summary ---
:1945 Author Organization [employer] Address [address] [place] [address] Care Team Providers Name Role Phone Kristine Brown MD Primary Care Provider Encounter Details Date Type Department Care Team Description 04/09/2013 Orders Only [facility] HTN (hypertension) [address] [place], [place] [address] Social History Tobacco Use [...] Description 02/14/2022 Appointment General Dentistry Bailey Castrejon, [facility] [address] [place] [address] (Wo rk) documented as of this encounter Procedures Procedure Name Priority Date/Time Associated Diagnosis Comme nts BASIC METABOLIC Routine 04/09/2013 10:32 AM HTN (hypertension) Results for this PANEL TACTICAL DEBRIEFER OFFICER procedure are i n the results section. documented in this encounter Results (ABNORMAL) BASIC METABOLIC PANEL (04/09/2013 10:32 AM TACTICAL DEBRIEFER OFFICER) [facility] Method Time Signature BUN 16 7 - 20 [facility] mg/dl [facility] Sodium 142 135 - 145 [facility] mmol/L [facility] Potassium 4.0 3.5 - 5.3 [facility] mmol/L [facility] Chloride 101 95 - 106 [facility] mmol/L [facility] CO2 28 22 - 30 [facility] mmol/L [facility] Glucose 93 70 - 180 [facility] mg/dl [facility] Creatinine 1.21 0.66 - [facility] 1.25 [facility] mg/dl GFR, Estimated 60.0 (L) >60 [facility] ml/min/1. LAB[facility]ATORIES 73m2 GFR, Est., If >60.0 >60 [facility] Black ml/min/1. LABORATORIES 73m2 Calcium 9.4 8.4 - [facility] 10.2 LAB[facility]ATORIES mg/dl Anion Gap 13 7 - 16 [facility] (calc.) mmol/L LAB[facility] Specimen Anatomical Collection Method Collection Time Receive d Time (Source) Location / / Volume Laterality 04/09/2013 10:32 04/09/2013 AM TACTICAL DEBRIEFER OFFICER 10:33 AM TACTICAL DEBRIEFER OFFICER Narrative [facility] - 04/09/2013 3:[address] Performed at [facility], [address] [place] [address] ??[phone] Kristine Brown MD LAB_1 Performing Organization Address City/State/ZIP Code Phon e Number [facility] [phone] documented in this encounter Visit Diagnoses Diagnosis HTN (hypertension) (HRC) Unspecified essential hypertension documented in this encounter Care Teams Station Mechanic Apprentice Relationship Specialty Start Date End Date Kristine Brown MD PCP - General Family Practice 03/25/13 [address] [place] [address] documented as of this encounter
--- OUTSIDE RECORDS SUMMARY | 2022-02-11 08:55 | XMS_ITS | Encounter Summary ---
:1945 Author Organization [employer] Address [address] [place] [address] Care Team Providers Name Role Phone Kristine Brown MD Primary Care Provider Reason for Visit Reason Comments Urgent Appt Request Encounter Details Date Type Department Care Team Description 07/14/2016 Telephone Specialty [facility] 401 Unassigned, Urge nt Appt Request Rheumatology Clinic Provider 401 [facility]. [address] [place] [address] [place], [place] [phone] Social History Tobacco Use Types Packs/Day Years Used Date Smoking Tobacco: Former Cigarettes 1 9 Quit : 04/24/1971 Smokeless Tobacco: Never Alcohol Use Standard Drinks/Week Comments Yes 4.2 (1 standard drink = 0.6 oz pure alco hol) Sex Assigned at Date Recorded Not on file documented as of this encounter Nursing Notes An Gray - 07/20/2016 8:34 AM CDT Patient returned call and has been scheduled. Elizabeth Mitchell - 07/19/2016 8:17 AM CDT Left message for patient to return call. Elizabeth Torres Gary Tavares - 07/14/2016 4:46 PM CDT LMTCB per message below. Alicia Leahy MD - 07/14/2016 4:42 PM CDT Ok for cancellation list. Alicia Leahy MD 07/14/2016, 4:42 PM Gary Tavares - 07/14/2016 3:37 PM CDT Pt has an urgent order stating 'recurrent pain and swelling in feet. suspect gout but multiarticularpresentation this time.' Please advise for scheduling. documented in this encounter Plan of Treatment Upcoming Encounters Date Type Specialty Care Team Description 02/14/2022 Appointment General Dentistry Bailey Castrejon, [facility] [address] [place], [place] [phone] (Wo rk) documented as of this encounter Visit Diagnoses Not on filedocumented in this encounter Care Teams Cmm Technician Relationship Specialty Start Date End Date Kristine Brown MD PCP - General Family Practice 03/25/13 [address] [place], [place] [phone] documented as of this encounter
--- OUTSIDE RECORDS SUMMARY | 2022-02-11 08:55 | XMS_ITS | Encounter Summary ---
:1945 Author Organization [employer] Address [address] [place] [address] Care Team Providers Name Role Phone Phillip Brown MD Primary Care Provider Reason for Visit Reason Comments MEDICATION CHECK Encounter Details Date Type Department Care Team Description 03/26/[address] [facility] Phillip Brown MD HTN (hypertension) Practice [address] [place] [address] (Primary Dx) [address] [place] [address] [phone] Social History Tobacco Use Types Packs/Day Years Used Date Smoking Tobacco: Former Cigarettes 1 9 Quit : 04/24/1971 Smokeless Tobacco: Never Alcohol Use Standard Drinks/Week Comments Yes 4.2 (1 standard drink = 0.6 oz pure alco hol) Sex Assigned at Date Recorded Not on file documented as of this encounter Last Filed Vital Signs Vital Sign Reading Time Taken Comments Blood Pressure 132/92 03/26/2013 10:20 AM SALES ENABLEMENT ANALYST Pulse 77 03/26/2013 10:01 AM SALES ENABLEMENT ANALYST Temperature - - Respiratory Rate - - Oxygen Saturation - - Inhaled Oxygen Concentration - - Weight 104.2 kg (229 lb 12.8 oz) 03/26/2013 9:55 AM SALES ENABLEMENT ANALYST Height 181.6 cm (5' 11.5) 03/26/2013 9:55 AM SALES ENABLEMENT ANALYST Body Mass Index 31.6 03/26/2013 9:55 AM SALES ENABLEMENT ANALYST documented in this encounter Patient Instructions Patient InstructionsPhillip Brown MD - 03/26/2013 10:25 AM CST Return to clinic for nursing visit in 2 weeks for repeat BP check. Please schedule a lab only visit at this time. S ENABLEMENT ANALYST documented in this encounter Progress Notes Phillip Brown MD - 03/26/2013 10:15 AM CST Chief Complaint Patient presents with ??? MEDICATION, CHECK 68 yo M here for f/u HTN. He ran out of his medications on 03/21/13. He had been taking this as prescribed without adverse effects prior to this. Denies chest pain/tightness/pressure, SOB, nausea, vomiting, abdominal pain, lightheadedness/dizziness, DURANT's. Allergies Allergen Reactions ??? Oxycodone Other, see comments ROS: see above for pertinents. BP 151/103 Pulse 77 Ht 5' 11.5 (1.816 m) Wt 229 lb 12.8 oz (104.237 kg) BMI 31.61 kg/m2 General: He appears well, alert and oriented x 3, pleasant and cooperative. CV:RRR Lungs: CTAB Ext:no LE edema b/l. A/P: 1. HTN: elevated today, patient will restart his medications and take his medications every day. EKGtoday, no acute ischemic changes/hypertrophy will serve as future baseline. RTC in 2 weeks for BP re-check, sooner PRN sx's persist/worsen/new sx's develop. Warning signs given.Phillip Brown MD 03/27/2013, 6:41 PM S ENABLEMENT ANALYST documented in this encounter Plan of Treatment Upcoming Encounters Date Type Specialty Care Team Description 02/14/2022 Appointment General Dentistry Bailey Castrejon, [facility] [address] [place] [address] (Wo rk) documented as of this encounter Procedures Procedure Name Priority Date/Time Associated Diagnosis Comme nts ECG 12-LEAD ROUTINE Routine 03/26/2013 10:39 AM HTN (hypertens ion) Results for this SALES ENABLEMENT ANALYST procedure are i n the results section. documented in this encounter Results (ABNORMAL) BASIC METABOLIC PANEL (04/09/2013 10:32 AM SALES ENABLEMENT ANALYST) Patholo gist Method Time Signature BUN 16 7 - [...] / Volume Laterality 04/09/2013 10:32 04/09/2013 AM SALES ENABLEMENT ANALYST 10:33 AM SALES ENABLEMENT ANALYST Narrative [facility] - 04/09/2013 3:[address] Performed at [facility], [address] [place] [phone] Phillip Brown MD LAB_1 Performing Organization Address City/State/ZIP Code Phon e Number [facility] [phone] ECG 12-LEAD ROUTINE [[id number]] (03/26/2013 10:39 AM SALES ENABLEMENT ANALYST) P athologist Signature Ventricular Rate 63 BPM [facility] Atrial Rate 63 BPM [facility] P-R Interval 166 ms [facility] QRS Duration 96 ms [facility] QT 398 ms [facility] QTc 407 ms [facility] P [place] 20 degrees [facility] Specimen (Source) Anatomical Collection Method Collection Time Re ceived Time Location / / Volume Laterality 03/26/2013 10:39 AM SALES ENABLEMENT ANALYST Narrative [facility] - 03/27/2013 2:42 PM SALES ENABLEMENT ANALYST Sinus rhythm Inferior infarct , age undetermined Abnormal ECG No previous ECGs available Confirmed by PHILLIP BROWN ([id number]), make up editor EDWARDO WILDE ([id number]) on 03/27/2013 2:42:51 PM Procedure Note Phillip Brown MD - 03/27/2013 Sinus rhythm Inferior infarct , age undetermined Abnormal ECG No previous ECGs available Confirmed by PHILLIP BRONW ([id number]), make up editor W EDWARDO THOMAS ([id number]) on 03/27/2013 2:42:51 PM Phillip Brown MD EKG Performing Organization Address City/State/ZIP Code Phon e Number [facility] [address] [place] [address] documented in this encounter Visit Diagnoses Diagnosis HTN (hypertension) (HRC) - Primary Unspecified essential hypertension HTN (hypertension) (HRC) Unspecified essential hypertension documented in this encounter Care Teams Geopolitics Teacher Relationship Specialty Start Date End Date Phillip Brown MD PCP - General Family Practice 03/25/13 [address] [place] [address] documented as of this encounter
--- OUTSIDE RECORDS SUMMARY | 2022-02-11 08:55 | XMS_ITS | Encounter Summary ---
:1945 Author Organization [employer] Address [address] [place] [address] Care Team Providers Name Role Phone Kristine Brown MD Primary Care Provider Reason for Visit Reason Comments BP CHECKMD Encounter Details Date Type Department Care Team Description 04/09/2013 Office Visit [facility] Kristine Bronw MD HTN (hypertension) Practice [address] [place] [address] (Primary Dx) [address] [place] [address] [phone] Social History Tobacco Use Types Packs/Day Years Used Date Smoking Tobacco: Former Cigarettes 1 9 Quit : 04/24/1971 Smokeless Tobacco: Never Alcohol Use Standard Drinks/Week Comments Yes 4.2 (1 standard drink = 0.6 oz pure alco hol) Sex Assigned at Date Recorded Not on file documented as of this encounter Last Filed Vital Signs Vital Sign Reading Time Taken Comments Blood Pressure 116/70 04/09/2013 10:25 AM INSTRUMENT OPERATOR Pulse 81 04/09/2013 10:04 AM INSTRUMENT OPERATOR Temperature - - Respiratory Rate 16 04/09/2013 10:04 AM INSTRUMENT OPERATOR Oxygen Saturation - - Inhaled Oxygen Concentration - - Weight - - Height - - Body Mass Index - - documented in this encounter Progress Notes Kristine Brown MD - 04/09/2013 7:22 PM CST Chief Complaint Patient presents with ??? BP CHECKMD 68 yo M here for f/u HTN. He ran out of his medications on 03/21/13. He had been taking this as prescribed without adverse effects prior to this. Denies chest pain/tightness/pressure, SOB, nausea, vomiting, abdominal pain, lightheadedness/dizziness, DURANT's. Allergies Allergen Reactions ??? Oxycodone Other, see comments ROS: see above for pertinents. BP 116/70 Pulse 81 Resp 16 General: He appears well, alert and oriented x 3, pleasant and cooperative. CV:RRR Lungs: CTAB Ext:no LE edema b/l. A/P: 1. HTN:stable, CPM. F/u today's labs.Kristine Brown MD 04/10/2013, 8:03 PM RUMENT OPERATOR documented in this encounter Plan of Treatment Upcoming Encounters Date Type Specialty Care Team Description 02/14/2022 Appointment General Dentistry Bailey Castrejon, [facility] [address] [place] [address] (Wo rk) documented as of this encounter Visit Diagnoses Diagnosis HTN (hypertension) (HRC) - Primary Unspecified essential hypertension documented in this encounter Care Teams Belt Sander Stone Relationship Specialty Start Date End Date Kristine Brown MD PCP - General Family Practice 03/25/13 [address] [place], [place] [phone] documented as of this encounter
--- OUTSIDE RECORDS SUMMARY | 2022-02-11 08:55 | XMS_ITS | Encounter Summary ---
:1945 [facility] Address [address] [place] [address] Care Team Providers Name Role Phone Kristine Brown MD Primary Care Provider Reason for Referral Consult/Transfer Care (Routine) - Closed Specialty Diagnoses / Procedures Referred By Contact [place]er [place] [address] [place], [place] [address] Referral ID Status Reason Start Date Expiration Date Visits Requ ested Visits Authorized [id number] Closed 03/13/2015 06/11/2016 1 1 Scheduling Instructions Your provider has recommended an appoint ment with a [facility] nurse. A procurement cost coordinator will contact you within the next 3 busin ess days to assist you in setting up this appointment. [employer] Reason for Visit Reason Comments BP CHECK, Encounter Details Date Type Department Care Team Description 03/13/2015 Office Visit [facility] Kristine Brown MD Essential hypertension Practice [address] [facility] (Primary Dx) [address] [place] [address] [phone] Social History Tobacco Use Types Packs/Day Years Used Date Smoking Tobacco: Former Cigarettes 1 9 Quit : 04/24/1971 Smokeless Tobacco: Never Alcohol Use Standard Drinks/Week Comments Yes 4.2 (1 standard drink = 0.6 oz pure alco hol) Sex Assigned at Date Recorded Not on file documented as of this encounter Last Filed Vital Signs Vital Sign Reading Time Taken Comments Blood Pressure 151/97 03/13/2015 10:17 AM [employer] Pulse 62 03/13/2015 10:17 AM [employer] Temperature - - Respiratory Rate 16 03/13/2015 9:55 AM [employer] Oxygen Saturation - - Inhaled Oxygen Concentration - - Weight - - Height - - Body Mass Index - - documented in this encounter Patient Instructions Patient InstructionsKristine Brown MD - 03/13/2015 10:11 AM CST Images from the original note were not included. DASH Diet: After Your Visit Your Care Instructions The DASH diet is an eating plan that can help lower your blood pressure. DASH stands for Dietary Approaches to Stop Hypertension. Hypertension is high blood pressure. The DASH diet focuses on eating foods that are high in calcium, potassium, and magnesium. These nutrients can lower blood pressure. The foods that are highest in these nutrients are fruits, vegetables,low-fat dairy products, nuts, seeds, and legumes. But taking calcium, potassium, and magnesium supplements instead of eating foods that are high in those nutrients does not have the same effect. The DASH diet also includes whole grains, fish, and poultry. The DASH diet is one of several lifestyle changes your doctor may recommend to lower your high bloodpressure. Your doctor may also want you to decrease the amount of sodium in your diet. Lowering sodium while following the DASH diet can lower blood pressure even further than just the DASH diet alone. Follow-up care is a tucker part of your treatment and safety. Be sure to make and go to all appointments, and call your doctor if you are having problems. It's also a good idea to know your test results and keep a list of the medicines you take. How can you care for yourself at home? Following the DASH diet ?? Eat 4 to 5 servings of fruit each day. A serving is 1 medium-sized piece of fruit, ?? cup choppedor canned fruit, 1/4 cup dried fruit, or 4 ounces (?? cup) of fruit juice. Choose fruit more often than fruit juice. ?? Eat 4 to 5 servings of vegetables each day. A serving is 1 cup of lettuce or raw leafy vegetables, ?? cup of chopped or cooked vegetables, or 4 ounces (?? cup) of vegetable juice. Choose vegetables more often than vegetable juice. ?? Get 2 to 3 servings of low-fat and fat-free dairy each day. A serving is 8 ounces of milk, 1 cup of yogurt, or 1 ?? ounces of cheese. ?? Eat 6 to 8 servings of grains each day. A serving is 1 slice of bread, 1 ounce of dry cereal, or ?? cup of cooked rice, pasta, or cooked cereal. Try to choose whole-grain products as much as possible. ?? Limit lean meat, poultry, and fish to 2 servings each day. A serving is 3 ounces, about the size of a deck of cards. ?? Eat 4 to 5 servings of nuts, seeds, and legumes (cooked dried beans, lentils, and split peas) each week. A serving is 1/3 cup of nuts, 2 tablespoons of seeds, or ?? cup cooked dried beans or peas. ?? Limit fats and oils to 2 to 3 servings each day. A serving is 1 teaspoon of vegetable oil or 2 tablespoons of salad dressing. ?? Limit sweets and added sugars to 5 servings or less a week. A serving is 1 tablespoon jelly or jam, ?? cup sorbet, or 1 cup of lemonade. ?? Eat less than 2,300 milligrams (mg) of sodium a day. If you have high blood pressure, diabetes, or chronic kidney disease, if you are -Nigerian, or if you are older than age 50, try to limit the amount of sodium you eat to less than 1,500 mg a day. Tips for success ?? Start small. Do not try to make dramatic changes to your diet all at once. You might feel that you are missing out on your favorite foods and then be more likely to not follow the plan. Make small changes, and stick with them. Once those changes become habit, add a few more changes. ?? Try some of the following: ?? Make it a goal to eat a fruit or vegetable at every meal and at snacks. This will make it easy toget the recommended amount of fruits and vegetables each day. ?? Try yogurt topped with fruit and nuts for a snack or healthy dessert. ?? Add lettuce, tomato, cucumber, and onion to sandwiches. ?? Combine a ready-made pizza crust with low-fat mozzarella cheese and lots of vegetable toppings. Try using tomatoes, squash, spinach, broccoli, carrots, cauliflower, and onions. ?? Have a variety of cut-up vegetables with a low-fat dip as an appetizer instead of chips and dip. ?? Sprinkle sunflower seeds or chopped almonds over salads. Or try adding chopped walnuts or almondsto cooked vegetables. ?? Try some vegetarian meals using beans and peas. Add garbanzo or kidney beans to salads. Make burritos and tacos with mashed mayes beans or black beans. Where can you learn more? Go to [employer] and enter H967 in the search box. Current as of: July 03, 2013 Content Version: 10.4 ?? 7033-8373 [employer]. [employer] documented in this encounter Progress Notes Kristine Brown MD - 03/13/2015 10:05 AM CST Chief Complaint Patient presents with ??? BP CHECK, 70 yo F here for f/u HTN. He is taking lisinopril 40mg daily x two weeks. Denies adverse effects. Denies SOB, chest pain/tightness/pressure, lightheadedness/dizziness/passing out. Allergies Allergen Reactions ??? Oxycodone Other, see comments Patient refuses to take it due to family addiction issues. ROS: see above for pertinents. BP 151/97 mmHg Pulse 62 Resp 16 General: patient appears well, alert and oriented x 3, pleasant, cooperative. No further PE performed. A/P: 1. HTN: elevated; add amlodipine 5mg PO Qdaily. Patient states that prior diuretic caused joint achiness.Lifestyle modifications reviewed. F/u BMP today. RTC for NV/BP re-check in 3 weeks. Kristine Brown MD 03/14/2015, 12:56 PM [employer] documented in this encounter Plan of Treatment Upcoming Encounters Date Type Specialty Care Team Description 02/14/2022 Appointment General Dentistry Bailey Castrejon, [facility] [address] [place] [address] (Wo rk) Scheduled Referrals Name Type Priority Associated Diagnoses Order S chedule NURSE APPOINTMENT Referral Routine Ordered: 1 05/13/2014 ADULT/PEDS [[id number]] documented as of this encounter Results CREATININE / GFR (03/13/2015 10:28 AM [employer]) Analysis Performed At Patho logist Time Signature Creatinine 1.10 0.66 - [facility] 1.25 mg/dl [facility] GFR, Estimated >60 >60 [facility] ml/min/1.7 LAB[facility]ATORIES 3m2 GFR, Est., If >60 >60 [facility] Black ml/min/1.7 LABORATORIES 3m2 Specimen Anatomical Collection Method Collection Time Receive d Time (Source) Location / / Volume Laterality 03/13/2015 10:28 03/13/2015 AM [employer] 10:29 AM [employer] Narrative [facility] - 03/13/2015 3:[address] Performed at [facility], [address] [place] [address] ??[id number] Kristine Brown MD LAB_1 Performing Organization Address City/[facility] Code Phon e Number [facility] [phone] POTASSIUM (03/13/2015 10:28 AM [employer]) P athologist Signature Potassium 5.0 3.5 - 5.3 [facility] mmol/L Specimen Anatomical Collection Method Collection Time Receive d Time (Source) Location / / Volume Laterality 03/13/2015 10:28 03/13/2015 AM [employer] 10:29 AM [employer] Narrative [facility] - 03/13/2015 3:[address] Performed at [facility], [address] [place] [address] ??[id number] Kristine Brown MD LAB_1 Performing Organization Address City/State/ZIP Code Phon e Number [facility] [phone] SODIUM (03/13/2015 10:28 AM [employer]) P athologist Signature Sodium 142 135 - 145 [facility] mmol/L Specimen Anatomical Collection Method Collection Time Receive d Time (Source) Location / / Volume Laterality 03/13/2015 10:28 03/13/2015 AM [employer] 10:29 AM [employer] Narrative [facility] - 03/13/2015 3:[address] Performed at [facility], [address] [place] [address] ??[phone] Kristine Brown MD LAB_1 Performing Organization Address City/State/ZIP Code Phon e Number [facility] [phone] documented in this encounter Visit Diagnoses Diagnosis Essential hypertension (HRC) - Primary Unspecified essential hypertension Essential hypertension (HRC) Unspecified essential hypertension documented in this encounter Care Teams Cloth Inspector Relationship Specialty Start Date End Date Kristine Brown MD PCP - General Family Practice 03/25/13 [address] [place] [address] documented as of this encounter
--- OUTSIDE RECORDS SUMMARY | 2022-02-11 08:55 | XMS_ITS | Encounter Summary ---
:1945 Author Organization [facility] Address [address] [place] [address] Care Team Providers Name Role Phone Kristine Brown MD Primary Care Provider Encounter Details Date Type Department Care Team Description 04/18/2016 Refill Order [facility] Kristine Brown [place] Practice [address] [facility] [address] [place] [address] [place], [place] [address] [phone] Social History Tobacco Use Types Packs/Day Years Used Date Smoking Tobacco: Former Cigarettes 1 9 Quit : 04/24/1971 Smokeless Tobacco: Never Alcohol Use Standard Drinks/Week Comments Yes 4.2 (1 standard drink = 0.6 oz pure alco hol) Sex Assigned at Date Recorded Not on file documented as of this encounter Nursing Notes Charlene Ortega CMA - 05/05/2016 6:11 PM CST Pt notified. Charlene Ortega CMA 05/05/2016, 6:11 PM LE HOME SERVICER documented in this encounter Plan of Treatment Upcoming Encounters Date Type Specialty Care Team Description 02/14/2022 Appointment General Dentistry Bailey Castrejon, [facility] [address] [place] [address] (Wo rk) documented as of this encounter Visit Diagnoses Diagnosis Encounter for long-term (current) use of medications - Primary Encounter for long-term (current) use of other medications documented in this encounter Care Teams Chha Relationship Specialty Start Date End Date Kristine Brown MD PCP - General Family Practice 03/25/13 [address] [place] [address] documented as of this encounter
--- OUTSIDE RECORDS SUMMARY | 2022-02-11 08:55 | XMS_ITS | Encounter Summary ---
:1945 Author Organization [facility] Address [address] [place] [address] Care Team Providers Name Role Phone Kristine Brown MD Primary Care Provider Reason for Referral Consult/Transfer Care (Routine) - Closed Specialty Diagnoses / Procedures Referred By Contact Refer red To Contact Diagnoses [place] [address] [place], [place] [address] Referral ID Status Reason Start Date Expiration Date Visits Requ ested Visits Authorized [id number] Closed 07/14/2016 10/13/2017 1 1 Scheduling Instructions Your provider has recommended an appoint ment with [facility]. You may call [phone] to schedule your a ppointment. If you prefer, a gas analyst will contact you within the next 3 business d ays to assist you in setting up this appointment. We suggest you call your [employer] about your coverage and benefits for this appointment. Reason for Visit Reason Comments PAIN, FOOT Encounter Details Date Type Department Care Team Description 07/14/2016 Office Visit [facility] Thaddeus Rodriguez (Primary Dx); Milla Negrete MD Gout of left ankle, unspecified cause, u nspecified chronicity; [address] [facility] [address] [facility] [place] [address] [phone] Social History Tobacco Use Types Packs/Day Years Used Date Smoking Tobacco: Former Cigarettes 1 9 Quit : 04/24/1971 Smokeless Tobacco: Never Alcohol Use Standard Drinks/Week Comments Yes 4.2 (1 standard drink = 0.6 oz pure alco hol) Sex Assigned at Date Recorded Not on file documented as of this encounter Last Filed Vital Signs Vital Sign Reading Time Taken Comments Blood Pressure 155/86 07/14/2016 1:48 PM CDT Pulse 100 07/14/2016 1:48 PM CDT Temperature 38.2 ??C (100.7 ??F) 07/14/2016 1:46 PM CDT Respiratory Rate - - Oxygen Saturation - - Inhaled Oxygen Concentration - - Weight - - Height - - Body Mass Index - - documented in this encounter Patient Instructions Patient InstructionsThaddeus Rodriguez MD - 07/14/2016 2:31 PM CDT Take 2 tabs of prednisone daily for 5 days then decrease to one tab daily for another 2 days if inflammation has resolved. Elevate left leg Rest Follow up if worsening. documented in this encounter Progress Notes Thaddeus Rodriguez MD - 07/14/2016 6:52 PM CDT SUBJECTIVE: Armen Crump is a 71 y.o. old male who presents with pain in left ankle and foot for 4 days. Hasbeen taking ibuprofen 600 mg several times per day. No injury. Has had several episodes of swelling of joints in feet usually first MTPJ but sometimes both feet atsame time. Usually 2 times/year for past 15 years but more recently it is been occurring almost nonstop for the last month.. Current episode seems started his ankle and spread to his foot with swellingand pain and he started getting a fever today. He also has pain in the shoulders bilaterally for thelast couple of days. Pain is there at rest sometimes severe worse with movement. He denies feeling ill. He states in the past his uric acid levels were normal. He recently had some blood work at the [facility] this was reviewed and he has a normal creatinine. His blood pressure is elevated today and he ishaving headache likely related to that. Past medical history reviewed. Problem list reviewed. Current medications reviewed. Allergies Allergen Reactions ??? Oxycodone Other, see comments Patient refuses to take it due to family addiction issues. . OBJECTIVE: Appears well in no distress Blood pressure 155/86, pulse 100, temperature 100.7 ??F (38.2 ??C), temperature source Tympanic. Examination: Examination of the shoulders revealed less than full range of motion due to pain. Thereis tenderness over the shoulder joints bilaterally. Left foot appears to be swollen it is not red or hot there is tenderness and swelling of the ankle as well and tenderness along the dorsum of foot to the MTP joints of the first through third toes. Circulation intact. ASSESSMENT/PLAN: ICD-10-CM 1. Arthritis M19.90 Uric Acid ESR Basic Metabolic Panel C-Reactive Protein ARNIE Screen Rheumatoid Factor, Quant Lyme Antibody, and Western Blot If Needed) Rheumatology Consult-Adults 2. Gout of left ankle, unspecified cause, unspecified chronicity M10.9 predniSONE (DELTASONE) 20 MG tablet 3. Essential hypertension (HRC) I10 As this is 4 days into this episode of arthritis and with elevated blood pressure likely due to the excessive amount of nonsteroidal anti-inflammatory drugs been taking I have recommended using prednisone. We will get some labs but also follow-up with rheumatology. Most likely this is gout but the polyarticular presentation is not typical of gout. Thaddeus Rodriguez MD 07/14/2016, 6:52 PM documented in this encounter Plan of Treatment Upcoming Encounters Date Type Specialty Care Team Description 02/14/2022 Appointment General Dentistry Bailey Castrejon, [facility] [address] [place] [address] (Wo rk) Scheduled Referrals Name Type Priority Associated Diagnoses Order S [facility] Rheumatology Referral Routine Arthritis Ordered: 2016 Consult-Adults documented as of this encounter Results Lyme Antibody, and Western Blot If Needed) (07/14/2016 2:41 PM CDT) Component Value Ref Test Analysis Performed At [facility] Method Time Signature Lyme Negative [facility] Interpretation [...] - 07/15/2016 10:59 AM CDT Performed at [facility], [address] [place] [id number] Thaddeus Rodriguez MD LAB_1 Performing Organization Address City/[facility]/ZIP Code Phon e Number [facility] [phone] Rheumatoid Factor, Quant (07/14/2016 2:41 PM CDT) athologist Signature Quant. Rheum. <15 0 - 30 [facility] Factor IU/ml LABORATORIES Specimen Anatomical Collection Method Collection Time Receive d Time (Source) Location / / Volume Laterality 07/14/2016 2:41 PM 7 2:44 CDT PM CDT Narrative [facility] - 07/14/2016 6:55 PM C DT Performed at [facility], [address] [place] [address] ??[phone] Thaddeus Rodriguez MD LAB_1 Performing Organization Address City/[facility] Code Phon e Number [facility] [phone] ARNIE Screen (07/14/2016 2:41 PM CDT) athologist Signature ARNIE Screen Negative NEG [facility] Specimen Anatomical Collection Method Collection Time Receive d Time (Source) Location / / Volume Laterality 07/14/2016 2:41 PM 7 2:44 CDT PM CDT Narrative [facility] - 07/15/2016 1:24 PM C DT Performed at [facility], [address] [place] [address] ??[phone] Thaddeus Rodriguez MD LAB_1 Performing Organization Address City/[facility]/ZIP Code Phon e Number [facility] [phone] (ABNORMAL) C-Reactive Protein (07/14/2016 2:41 PM CDT) Patholo gist Method Time Signature C-Reactive 4.1 (H) 0.0 - 0.7 [facility] Protein mg/dL LAB[facility]ATORIES Comment: Note: results are expressed in mg/dL. Specimen Anatomical Collection Method Collection Time Receive d Time (Source) Location / / Volume Laterality 07/14/2016 2:41 PM 7 2:44 CDT PM CDT Narrative [facility] - 07/14/2016 6:58 PM C DT Performed at [facility], [address] [place] [address] ??[phone] Thaddeus Rodriguez MD LAB_1 Performing Organization Address [facility] Phon e Number [facility] [phone] Basic Metabolic Panel (07/14/2016 2:41 PM CDT) Analysis Performed At Path logist Time Signature Sodium 141 136 - [...] 07/14/2016 6:58 PM C DT Performed at [facility], [address] [place] [address] ??[phone] Thaddeus Rodriguez MD LAB_1 Performing Organization Address City/[facility] Phon e Number [facility] [phone] ESR (07/14/2016 2:41 PM CDT) athologist Signature ESR 2 0 - 15 [facility] mm/hr Specimen Anatomical Collection Method Collection Time Receive d Time (Source) Location / / Volume Laterality 07/14/2016 2:41 PM 7 2:44 CDT PM CDT Narrative [facility] - 07/14/2016 9:09 PM C DT Performed at [facility], [address] [place] [address] ??[phone] Thaddeus Rodriguez MD LAB_1 Performing Organization Address City/[facility] Phon e Number [facility] [phone] (ABNORMAL) Uric Acid (07/14/2016 2:41 PM CDT) athologist Signature Uric Acid 7.5 (H) 3.5 - 7.2 [facility] mg/dl Specimen Anatomical Collection Method Collection Time Receive d Time (Source) Location / / Volume Laterality 07/14/2016 2:41 PM 7 2:44 CDT PM CDT Narrative [facility] - 07/14/2016 6:58 PM C DT Performed at [facility], [address] [place] [address] ??[phone] Thaddeus Rodriguez MD LAB_1 Performing Organization Address City/[facility] Phon e Number [facility] [phone] documented in this encounter Visit Diagnoses Diagnosis Arthritis - Primary Arthropathy, unspecified, site unspecifi ed Gout of left ankle, unspecified cause, u nspecified chronicity Essential hypertension (HRC) Unspecified essential hypertension Encounter for long-term (current) use of medications Encounter for long-term (current) use of other medications Arthritis Arthropathy, unspecified, site unspecifi ed documented in this encounter Care Teams Canteen Attendant Relationship Specialty Start Date End Date Kristine Brown MD PCP - General Family Practice 03/25/13 [address] [place] [address] documented as of this encounter
--- OUTSIDE RECORDS SUMMARY | 2022-02-11 08:55 | XMS_ITS | Encounter Summary ---
:1945 Author Organization [facility] Address [address] [place] [address] Care Team Providers Name Role Phone Kristine Brown MD Primary Care Provider Reason for Visit Reason Onset Date Comments Refill 04/20/2016 Encounter Details Date Type Department Care Team Description 04/20/2016 Refill [facility] Kristine Brown MD Refill [address] [facility] [address] [place], [place] [address] [place], [place] [id number] (Wo rk) Social History Tobacco Use Types [...] [facility] [address] [place], [place] [phone] (Wo rk) documented as of this encounter Visit Diagnoses Not on filedocumented in this encounter Care Teams Shore Worker Relationship Specialty Start Date End Date Kristine Brown MD PCP - General Family Practice 03/25/13 [address] [place], [place] [phone] documented as of this encounter
--- OUTSIDE RECORDS SUMMARY | 2022-02-11 08:55 | XMS_ITS | Encounter Summary ---
:1945 Author Organization [facility] Address [address] [place] [address] Care Team Providers Name Role Phone Kristine Brown MD Primary Care Provider Reason for Referral Consult/Transfer Care (Routine) - Closed Specialty Diagnoses / Procedures Referred By Contact [place]er [place] [address] [place], [place] [address] Referral ID Status Reason Start Date Expiration Date Visits Requ ested Visits Authorized [id number] Closed 02/16/2015 05/17/2016 1 1 Scheduling Instructions Your provider [facility] A angle dozer operator will contact you within the next 3 busin ess days to assist you in setting up this appointment. Reason for Visit Reason Comments MEDICATION CHECK and lab f/u Health Maintanence Declined Encounter Details Date Type Department Care Team Description 02/16/2015 Office Visit [facility] Kristine Brown MD Essential hypertension (Primary Dx); Practice [address] [place] [address] [address] [place] [phone] Social History Tobacco Use Types Packs/Day Years Used Date Smoking Tobacco: Former Cigarettes 1 9 Quit : 04/24/1971 Smokeless Tobacco: Never Alcohol Use Standard Drinks/Week Comments Yes 4.2 (1 standard drink = 0.6 oz pure alco hol) Sex Assigned at Date Recorded Not on file documented as of this encounter Last Filed Vital Signs Vital Sign Reading Time Taken Comments Blood Pressure 163/101 02/16/2015 8:04 AM CDT Pulse 67 02/16/2015 8:04 AM CDT Temperature - - Respiratory Rate 18 02/16/2015 8:04 AM CDT Oxygen Saturation - - Inhaled Oxygen Concentration - - Weight 107.5 kg (237 lb) 02/16/2015 8:04 AM CDT Height - - Body Mass Index 33.05 01/16/2015 10:38 AM CDT documented in this encounter Patient Instructions Patient InstructionsKristine Brown MD - 02/16/2015 8:15 AM CDT Return for a nurse visit in 2 weeks for repeat blood pressure. Return for a lab only visit in 6 months for fasting blood sugar. documented in this encounter Progress Notes Kristine Brown MD - 02/16/2015 8:09 AM CDT Chief Complaint Patient presents with ??? MEDICATION CHECK and lab f/u ??? Health Maintanence Declined 70 yo M here for hypertension follow up. He has not noticed any further joint aches since he stoppedthe HCTZ. He usually takes lisinopril 20mg daily without SE's. He forgot to take his AM dose today. Denies SOB, chest pain/tightness/pressure, lightheadedness/dizziness. He is working on his diet, is not physically active. Allergies Allergen Reactions ??? Oxycodone Other, see comments Patient refuses to take it due to family addiction issues. ROS: see above for pertinents. BP 163/101 mmHg Pulse 67 Resp 18 Wt 237 lb (107.502 kg) General: patient appears well, alert and oriented x 3, pleasant, cooperative. No further PE performed. A/P: 1. HTN: uncontrolled, patient did not take his medication this AM; advised taking medication on day he returns for NE for repeat BP check. Sodium/potassium/creatinine from 01/30 within acceptable limits. 2. Impaired fasting glucose: BS of 115 from 01/30; lifestyle modifications reviewed. RTC for YUN/FBS in 6 months. Kristine Brown MD 02/16/2015, 12:31 PM documented in this encounter Plan of Treatment Upcoming Encounters Date Type Specialty Care Team Description 02/14/2022 Appointment General Dentistry Bailey Castrejon, [facility] [address] [place], [place] [phone] (Wo rk) Scheduled Referrals Name Type Priority Associated Diagnoses Order [facility] NURSE APPOINTMENT Referral Routine Ordered: 1 ADULT/PEDS [[id number]] documented as of this encounter Visit Diagnoses Diagnosis Essential hypertension (HRC) - Primary Unspecified essential hypertension Prediabetes Other abnormal glucose documented in this encounter Care Teams Rock Wool Applicator Relationship Specialty Start Date End Date Kristine Brown MD PCP - General Family Practice 03/25/13 [address] [place], [place] [phone] documented as of this encounter
--- OUTSIDE RECORDS SUMMARY | 2022-02-11 08:55 | XMS_ITS | Encounter Summary ---
:1945 Author Organization [employer] Address [address] [place] [address] Care Team Providers Name Role Phone Kristine Brown MD Primary Care Provider Reason for Visit Reason Comments BLOOD PRESSURE CHECK Consult/Transfer Care (Routine) - Closed Specialty Diagnoses / Procedures Referred By Contact Refer red To [place] Kristine Brown [place] [id number] [place] [phone] Referral ID Status Reason Start Date Expiration Date Visits Requ ested Visits Authorized [id number] Closed 02/16/2015 05/17/2016 1 1 Encounter Details Date Type Department Care Team Description 02/27/2015 Nursing Visit [facility]son hypertension Department (Primary Dx) [address] [place] [address] 24 Social History Tobacco Use Types Packs/Day Years Used Date Smoking Tobacco: Former Cigarettes 1 9 Quit : 04/24/1971 Smokeless Tobacco: Never Alcohol Use Standard Drinks/Week Comments Yes 4.2 (1 standard drink = 0.6 oz pure alco hol) Sex Assigned at Date Recorded Not on file documented as of this encounter Last Filed Vital Signs Vital Sign Reading Time Taken Comments Blood Pressure 165/102 02/27/2015 8:29 AM SOCIAL SERVICES MANAGER Pulse 67 02/27/2015 8:29 AM SOCIAL SERVICES MANAGER Temperature - - Respiratory Rate 16 02/27/2015 8:19 AM SOCIAL SERVICES MANAGER Oxygen Saturation - - Inhaled Oxygen Concentration - - Weight - - Height - - Body Mass Index - - documented in this encounter Progress Notes Belia Hoff LPN - 02/27/2015 8:33 AM CST S Armen Crump here today for follow up blood pressure check. Medications were reviewed: currently prescribed and taking blood pressure medication(s) Patient states he has been taking his Lisinopril daily as directed. O BP 165/102 mmHg Pulse 67 Resp 16 Blood pressures recorded. A BP elevated. Reviewed blood Reviewed blood pressure guidelines with patient. P Reviewed with Dr. Brown. Patient to increase Lisinopril to 40mg daily and schedule PROVIDER visit intwo weeks Dr. Brown. Appointment scheduled 03/13/15 Belia Hoff LPN AL SERVICES MANAGER documented in this encounter Plan of Treatment Upcoming Encounters Date Type Specialty Care Team Description 02/14/2022 Appointment General Dentistry Bailey Castrejon, [facility] [address] [place], [place] [phone] (Wo rk) documented as of this encounter Visit Diagnoses Diagnosis Essential hypertension (HRC) - Primary Unspecified essential hypertension documented in this encounter Care Teams Museum Librarian Relationship Specialty Start Date End Date Kristine Brown MD PCP - General Family Practice 03/25/13 [address] [place] [address] documented as of this encounter
--- OUTSIDE RECORDS SUMMARY | 2022-02-11 08:55 | XMS_ITS | Encounter Summary ---
:1945 Author Organization [employer] Address [address] [place] [address] Care Team Providers Name Role Phone Kristine Brown MD Primary Care Provider Reason for Visit Reason Comments BP CHECK,NURSE Encounter Details Date Type Department Care Team Description 11/30/2015 Nursing Visit [facility] Brett [facility]son hypertension Department (Primary Dx) [address] [place] [address] 24 Social History Tobacco Use Types Packs/Day Years Used Date Smoking Tobacco: Former Cigarettes 1 9 Quit : 04/24/1971 Smokeless Tobacco: Never Alcohol Use Standard Drinks/Week Comments Yes 4.2 (1 standard drink = 0.6 oz pure alco hol) Sex Assigned at Date Recorded Not on file documented as of this encounter Last Filed Vital Signs Vital Sign Reading Time Taken Comments Blood Pressure 133/80 11/30/2015 8:31 AM CDT Pulse 64 11/30/2015 8:31 AM CDT Temperature - - Respiratory Rate - - Oxygen Saturation - - Inhaled Oxygen Concentration - - Weight - - Height - - Body Mass Index - - documented in this encounter Progress Notes Alka Escamilla LPN - 11/30/2015 8:35 AM CDT Reed Crump here today for follow up blood pressure check. Medications were reviewed: currently prescribed and taking blood pressure medication(s) O BP 133/80 mmHg Pulse 64 Blood pressures recorded: BP Readings from Last 1 Encounters: 11/30/15 0831 133/80 A Blood pressure at goal. P Follow-up blood pressure annually or as previously recommended by PCP. Pt states that he is having some mild side effects to the amlodipine. States he will make an appt with Dr. Brown to discuss. Annie Escamilla LPN 11/30/2015, 8:34 AM documented in this encounter Nursing Notes Madyson Epperson RN - 11/27/2015 4:47 PM CDT Nurse managed due to last medication titration of amlodipine 10 mg 10/[address] Brown Last BP: BP Readings from Last 2 Encounters: 11/06/15 128/81 04/20/15 132/81 documented in this encounter Plan of Treatment Upcoming Encounters Date Type Specialty Care Team Description 02/14/2022 Appointment General Dentistry Bailey Castrejon, [facility] [address] [place], [place] [phone] (Wo rk) documented as of this encounter Visit Diagnoses Diagnosis Essential hypertension (HRC) - Primary Unspecified essential hypertension documented in this encounter Care Teams Bolt Maker Relationship Specialty Start Date End Date Kristine Brown MD PCP - General Family Practice 03/25/13 [address] [place], [place] [phone] documented as of this encounter
--- OUTSIDE RECORDS SUMMARY | 2022-02-11 08:55 | XMS_ITS | Encounter Summary ---
:1945 Author Organization [employer] Address [address] [place] [address] Care Team Providers Name Role Phone Unassigned, Provider Primary Care Provider Unavailable Encounter Details Date Type Department Care Team Description 11/19/2012 Orders Only [facility] Scre[facility]; [address] [facility] [place] Hypertension [place], [place] [address] Social History Tobacco Use [...] [facility] [address] [place], [place] [phone] (Wo rk) documented as of this encounter Procedures Procedure Name Priority Date/Time Associated Diagnosis Comme nts LIPID PANEL AND Routine 11/19/2012 8:47 AM Screening Result s for this DIRECT LDL(IF CDT procedure are in NEEDED) the results section. CREATININE / GFR Routine 11/19/2012 8:47 AM Hypertension Resul ts for this CDT procedure are i n the results section. SODIUM Routine 11/19/2012 8:47 AM Hypertension Results f or this CDT procedure are i n the results section. POTASSIUM Routine 11/19/2012 8:47 AM Hypertension Results f or this CDT procedure are i n the results section. GLUCOSE - FASTING > Routine 11/19/2012 8:47 AM Hypertension Re sults for this 8 HRS FASTING CDT procedure are in the results section. documented in this encounter Results SODIUM (11/19/2012 8:47 AM CDT) athologist Signature Sodium 138 135 - 145 [facility] mmol/L Specimen Anatomical Collection Method Collection Time Receive d Time (Source) Location / / Volume Laterality 11/19/2012 8:47 AM 3 8:51 CDT AM CDT Narrative [facility] - 11/19/2012 5:30 PM C DT Performed at [facility], [address] [place] [address] ??[phone] Kristine Brown MD LAB_1 Performing Organization Address City/[facility] Phon e Number [facility] [phone] POTASSIUM (11/19/2012 8:47 AM CDT) athologist Signature Potassium 4.3 3.5 - 5.3 [facility] mmol/L Specimen Anatomical Collection Method Collection Time Receive d Time (Source) Location / / Volume Laterality 11/19/2012 8:47 AM 3 8:51 CDT AM CDT Narrative [facility] - 11/19/2012 5:30 PM C DT Performed at [facility], [address] [place] [address] ??[id number] Kristine Brown MD LAB_1 Performing Organization Address City/[facility] Phon e Number [facility] [phone] GLUCOSE - FASTING > 8 HRS FASTING (V77.1) (11/19/2012 8:47 AM CDT) athologist Signature Hours Fasting 18 hours [facility] Glucose 100 70 - 100 [facility] mg/dl [facility] Specimen Anatomical Collection Method Collection Time Receive d Time (Source) Location / / Volume Laterality 11/19/2012 8:47 AM 3 8:51 CDT AM CDT Narrative [facility] - 11/19/2012 5:30 PM C DT Performed at [facility], [address] [place] [address] ??[phone] Kristine Brown MD LAB_1 Performing Organization Address City/[facility]/ZIP Code Phon e Number [facility] [phone] (ABNORMAL) CREATININE / GFR (11/19/2012 8:47 AM CDT) [facility] Method Time Signature Creatinine 1.23 0.66 - [facility] mg/dl GFR, Estimated 59.1 (L) >60 [facility] ml/min/1. [facility] 73m2 GFR, Est., If >60.0 >60 [facility] ml/min/1. [facility]ATOR[facility] 73m2 Specimen Anatomical Collection Method Collection Time Receive d Time (Source) Location / / Volume Laterality 11/19/2012 8:47 AM 3 8:51 CDT AM CDT Narrative [facility] - 11/19/2012 5:30 PM C DT Performed at [facility], [address] [place] [address] ??[phone] Kristine Brown MD LAB_1 Performing Organization Address [facility] Phon e Number [facility] [phone] LIPID PANEL AND DIRECT LDL(IF NEEDED) (11/19/2012 8:47 AM CDT) [facility] Method Time Signature Hours Fasting 18 hours [facility] Cholesterol 157 0 - 199 [facility] mg/dl [facility] Triglyceride 99 0 - 149 [facility] mg/dl [facility] HDL 44 >40 mg/dl [facility] LDL, Calc. 93 0 - 129 [facility] mg/dl [facility] Non HDL Chol, 113 mg/dl [facility] Calc [facility] Specimen Anatomical Collection Method Collection Time Receive d Time (Source) Location / / Volume Laterality 11/19/2012 8:47 AM 3 8:51 CDT AM CDT Narrative [facility] - 11/19/2012 5:30 PM C DT Performed at [facility], [address] [place] [address] ??[phone] Kristine Brown MD LAB_1 Performing Organization Address City/[facility]/ZIP [facility] Phon e Number [facility] [phone] documented in this encounter Visit Diagnoses Diagnosis Screening Screening for unspecified condition Hypertension (HRC) Unspecified essential hypertension documented in this encounter Care Teams Asset Specialist Relationship Specialty Start Date End Date Unassigned, Provider PCP - General 01/26/00 03/24/[address] [place] [address] documented as of this encounter
--- OUTSIDE RECORDS SUMMARY | 2022-02-11 08:55 | XMS_ITS | Encounter Summary ---
:1945 Author Organization [facility] Address [address] [place] [address] Care Team Providers Name Role Phone Kristine Brown MD Primary Care Provider Reason for Visit Reason Comments BLOOD PRESSURE CHECK Encounter Details Date Type Department Care Team Description 02/27/2015 Telephone [facility] Kristine Brown MD BLOOD PRESSURE CHECK Practice [id number] [place] [address] [place], [place] [phone] (Wo rk) Social History Tobacco Use Types Packs/Day Years Used Date Smoking Tobacco: Former Cigarettes 1 9 Quit : 04/24/1971 Smokeless Tobacco: Never Alcohol Use Standard Drinks/Week Comments Yes 4.2 (1 standard drink = 0.6 oz pure alco hol) Sex Assigned at Date Recorded Not on file documented as of this encounter Nursing Notes Kristine Brown MD - 02/27/2015 9:25 AM CST Agree with plan below. Kristine Brown MD 02/27/2015, 9:25 AM Belia Aleman LPN - 02/27/2015 8:34 AM CST S Armen Crump here today [...] 40mg daily and schedule PROVIDER visit intwo nikko Brown. Appointment scheduled 03/13/15 Patient voices understanding of medication dosage increase. Agrees with plan of care. Belia Hoff LP ODUCTION PRODUCTION MANAGER documented in this encounter Plan of Treatment Upcoming Encounters Date Type Specialty Care Team Description 02/14/2022 Appointment General Dentistry Bailey Castrejon, [facility] [address] [place], [place] [phone] (Wo rk) documented as of this encounter Visit Diagnoses Not on filedocumented in this encounter Care Teams Production Line Relationship Specialty Start Date End Date Kristine Brown MD PCP - General Family Practice 03/25/13 [address] [place], [place] [phone] documented as of this encounter
--- OUTSIDE RECORDS SUMMARY | 2022-02-11 08:55 | XMS_ITS | Encounter Summary ---
:1945 Author Organization [employer] Address [address] [place] [address] Care Team Providers Name Role Phone Kristine Brown MD Primary Care Provider Encounter Details Date Type Department Care Team Description 03/13/2015 Orders Only [facility] Essential hypertension [address] [place], [place] [address] Social History Tobacco Use [...] Description 02/14/2022 Appointment General Dentistry Bailey Castrejon, [facility] [address] [place], [place] [phone] (Wo rk) documented as of this encounter Procedures Procedure Name Priority Date/Time Associated Diagnosis Comme nts CREATININE / GFR Routine 03/13/2015 10:28 AM Essential hyperte nsion Results for this LASTEX OPERATOR procedure are i n the results section. SODIUM Routine 03/13/2015 10:28 AM Essential hypertensio n Results for this LASTEX OPERATOR procedure are i n the results section. POTASSIUM Routine 03/13/2015 10:28 AM Essential hypertensio n Results for this LASTEX OPERATOR procedure are i n the results section. documented in this encounter Results CREATININE / GFR (03/13/2015 10:28 AM LASTEX OPERATOR) Analysis Performed At Patho logist Time Signature Creatinine 1.10 0.66 - [facility].25 mg/dl [facility] GFR, Estimated >60 >60 [facility] ml/min/1.7 [facility] 3m2 GFR, Est., If >60 >60 [facility] ml/min/1.7 [facility] 3m2 Specimen Anatomical Collection Method Collection Time Receive d Time (Source) Location / / Volume Laterality 03/13/2015 10:28 03/13/2015 AM LASTEX OPERATOR 10:29 AM LASTEX OPERATOR Narrative [facility] - 03/13/2015 3:[address] Performed at [facility], [address] [place] [address] ??[phone] Kristine Brown MD LAB_1 Performing Organization Address City/[facility]/ZIP Code Phon e Number [facility] [phone] POTASSIUM (03/13/2015 10:28 AM LASTEX OPERATOR) athologist Signature Potassium 5.0 3.5 - 5.3 [facility] mmol/L Specimen Anatomical Collection Method Collection Time Receive d Time (Source) Location / / Volume Laterality 03/13/2015 10:28 03/13/2015 AM LASTEX OPERATOR 10:29 AM LASTEX OPERATOR Narrative [facility] - 03/13/2015 3:[address] Performed at [facility], [address] [place] [address] ??[phone] Kristine Brown MD LAB_1 Performing Organization Address City/[facility]/ZIP Code Phon e Number [facility] [phone] SODIUM (03/13/2015 10:28 AM LASTEX OPERATOR) P athologist Signature Sodium 142 135 - 145 [facility] mmol/L Specimen Anatomical Collection Method Collection Time Receive d Time (Source) Location / / Volume Laterality 03/13/2015 10:28 03/13/2015 AM LASTEX OPERATOR 10:29 AM LASTEX OPERATOR Narrative [facility] - 03/13/2015 3:[address] Performed at [facility], [address] [place] [address] ??[phone] Kristine Brown MD LAB_1 Performing Organization Address City/State/ZIP Code Phon e Number [facility] [phone] documented in this encounter Visit Diagnoses Diagnosis Essential hypertension (HRC) Unspecified essential hypertension documented in this encounter Care Teams Ophthalmic Nurse Relationship Specialty Start Date End Date Kristine Brown MD PCP - General Family Practice 03/25/13 [address] [place] [address] documented as of this encounter
--- OUTSIDE RECORDS SUMMARY | 2022-02-11 08:55 | XMS_ITS | Encounter Summary ---
:1945 Author Organization [employer] Address [address] [place] [address] Care Team Providers Name Role Phone Kristine Brown MD Primary Care Provider Reason for Referral Consult/Transfer Care (Routine) - Closed Specialty Diagnoses / Procedures Referred By Contact [place]er [place] [address] [place], [place] [address] Referral ID Status Reason Start Date Expiration Date Visits Requ ested Visits Authorized [id number] Closed 01/16/2015 04/16/2016 1 1 Scheduling Instructions If scheduling assistance is needed, lizett rojas inquire with the medical office staff upon exiting your appointment or contact the ordering clinic for recommended locations. This recommended service/s may not be co kyung by your insurance coverage. To find out your specific benefit coverage, please c all the number on your insurance card. Reason for Visit Reason Comments ROUTINE HEALTH MAINTENANCE Encounter Details Date Type Department Care Team Description 01/16/[address] [facility] ([place], [place]) Kristine Brown MD Encounter for routine adult health exami nation without abnormal findings (Primary Dx); Practice [address] [facility] Essential hypertension; [address] [place], [place] Screening for deficiency ane hayden; [place] [address] History of basal cell cancer; [address] Screening PSA (prostate spec ific antigen) Social History Tobacco Use Types Packs/Day Years Used Date Smoking Tobacco: Former Cigarettes 1 9 Quit : 04/24/1971 Smokeless Tobacco: Never Alcohol Use Standard Drinks/Week Comments Yes 4.2 (1 standard drink = 0.6 oz pure alco hol) Sex Assigned at Date Recorded Not on file documented as of this encounter Last Filed Vital Signs Vital Sign Reading Time Taken Comments Blood Pressure 134/77 01/16/2015 10:38 AM CDT Pulse 74 01/16/2015 10:38 AM CDT Temperature 36.3 ??C (97.4 ??F) 01/16/2015 10:38 AM CDT Respiratory Rate 14 01/16/2015 10:38 AM CDT Oxygen Saturation - - Inhaled Oxygen Concentration - - Weight 106.6 kg (235 lb) 01/16/2015 10:38 AM CDT Height 180.3 cm (5' 11) 01/16/2015 10:38 AM CDT Body Mass Index 32.78 01/16/2015 10:38 AM CDT documented in this encounter Patient Instructions Patient InstructionsKristine Brown MD - 01/16/2015 11:01 AM CDT Return for a lab only visit in 2 weeks, fasting labs documented in this encounter Progress Notes Kristine Brown MD - 01/16/2015 10:51 AM CDT Routine Health Maintenance: Historical: Armen Crump is a 69 y.o. old male Chief Complaint Patient presents with ??? ROUTINE HEALTH MAINTENANCE Last seen for RHM, last exam in 2012. He is also seen Q 1 year at [place] for agent orange screening/exam, will be due back in 04/07. S Armen Crump is a 67 yr old male in for routine health maintenance. Current concerns: 1. HTN:he will only take HCTZ- triamterene about 1/2 tab PO twice weekly as this will cause him to feel less energetic. Denies other symptoms. He will check his BP's on the days he does not take the HCTZ- triamterene and his SBP will run in high 130's. 2. HM: never had a colonoscopy; not interested in colonoscopy or FIT testing. 3. H/o agent orange exposure: has screening Q 1 year-he is due to have this done again this winter. 4. H/o basal cell carcinoma: due back to see dermatology this year, has not made appt yet. Diet, fruits/ vegetables: 2-4 servings each day Present exercise habits: infrequent exercise Do you have any concerns about your hearing? no Have you had an eye exam in the past 5 years? yes Have you ever smoked (more than 100 cigarettes total in lifetime)? yes Have you: - felt little interest or pleasure in doing things, for a few days or more in the last 2 weeks? OR - felt down, depressed or hopeless for a few days or more in the last 2 weeks? no I have reviewed the medical, surgical, family and social histories. Review of Systems CONSTITUTIONAL: Negative EYES: no visual blurring, no double vision, no glaucoma, no cataracts, no eye pain, no color blindness ENT: no abnormally frequent URIs, no decrease in hearing, no persistently sore throat, no tinnitus, no vertigo RESPIRATORY: no shortness of breath, no cough, no sputum CARDIOVASCULAR: no palpitations, no irregular heart beats, no chest pain, no exertional chest pain or pressure GASTROINTESTINAL: normal appetite, no dysphagia, no nausea, no abdominal pain, no melena GENITOURINARY: no dysuria, no frequency, no hematuria MUSCULOSKELETAL: no weakness, no nocturnal cramping, no muscle pains SKIN: no rash, no itch, no scaling, no hair changes, no nail changes NEUROLOGIC: no numbness or tingling of hands, no numbness or tingling of feet, no syncope PSYCHIATRIC: no sleep disturbances, no anxiety, no depression HEMATOLOGIC/LYMPHATIC/IMMUNOLOGIC: no fevers, no night sweats, no chills, no weight loss ENDOCRINE: no cold intolerance, no heat intolerance, no polydypsia, no polyphagia Observed: BP 134/77 mmHg Pulse 74 Temp(Src) 97.4 ??F (36.3 ??C) (Tympanic) Resp 14 Ht 5' 11 (1.803 m) Wt 235 lb (106.595 kg) BMI 32.79 kg/m2 General: Appears stated age, alert and comfortable HEENT: oropharynx is normal. Neck: thyroid normal Lungs: clear to auscultation, no wheezes or rales CV: regular rate and rhythm, normal S1 and S2 without murmur or click Abd: Soft, non-tender, no masses, no hepatomegaly or splenomegaly. : not examined Skin: no significant abnormalities noted Rectal exam: prostate normal in size without masses or nodules. Psych:oriented x3, normal recent/remote memory, normal attention/concentration, normal knowledge fund, normal mood/affect Assessment/Plan: Patient counseled: -healthy diet -increasing physical activity HTN: will start lisinopril given lack of energy when adding HCTZ; RTC in 2-3 weeks for YUN and f/u clinic visit for BP check. H/o basal cell ca: advised f/u with derm, order placed. documented in this encounter Plan of Treatment Upcoming Encounters Date Type Specialty Care Team Description 02/14/2022 Appointment General Dentistry Bailey Castrejon, [facility] [address] [place], [place] [id number] (Wo rk) Scheduled Referrals Name Type Priority Associated Diagnoses Order S chedule DERMATOLOGY Referral Routine Ordered: 2014 CONSULT-ADULT/PEDS documented as of this encounter Results PROSTATIC SPECIFIC ANTIGEN(SCREEN) (V76.44) (01/30/2015 7:35 AM CDT) P athologist Signature Prostatic Spec 3.08 0.00 - [facility] Ag 4.00 ng/ml [facility]ATOR[facility] Specimen Anatomical Collection Method Collection Time Receive d Time (Source) Location / / Volume Laterality 01/30/2015 7:35 AM 5 7:46 CDT AM CDT Narrative [facility] - 01/30/2015 12:26 PM CDT Performed at [facility], [address] [place] [address] ??[id number] Kristine Brown MD LAB_1 Performing Organization Address City/State/ZIP Code Phon e Number [facility] [phone] MICROALB/CREAT RATIO (01/30/2015 7:35 AM CDT) Patholo gist Method Time Signature Albumin, <0.5 mg/dl [facility] Urine, Random LABORATORIES Creatinine,Ur 173.0 mg/dl [facility] Random [facility] Alb/Creat <3 <30 mg/g [facility] Ratio, Urine, creatinine LAB[facility]ATORIES Random Specimen Anatomical Collection Method Collection Time Receive d Time (Source) Location / / Volume Laterality Urine specimen 01/30/2015 7:35 AM 015 7:46 (specimen) CDT AM CDT Narrative [facility] - 01/30/2015 2:36 PM C DT Performed at [facility], [address] [place] [address] ??[id number] Kristine Brown MD LAB_1 Performing Organization Address City/State/ZIP Code Phon e Number [facility] [phone] (ABNORMAL) HEMOGRAM/PLTS/DIFF (01/30/2015 7:35 AM CDT) [facility] Method Time Signature WBC 4.6 4.0 - [facility] 11.0 k/ul LAB[facility] RBC 5.68 4.5 - 5.9 [facility] M/ul [facility] Hemoglobin 18.1 (H) 13.5 - [facility] 17.5 g/dl LAB[facility] HCT 52.2 41.0 - [facility] 53.0 % LAB[facility]IES MCV 91.9 80 - 100 [facility] fl [facility] MCH 31.9 26 - 34 [facility] pg [facility] MCHC 34.7 32 - 36 [facility] g/dl [facility] RDW 12.9 11.5 - [facility] 14.5 % LAB[facility] Platelets 181 150 - 450 [facility] k/ul [facility] PMN/Band 56 % [facility] Lymph 26 % [facility] [place] 12 % [facility] Eos 5 % [facility] Baso 0 % [facility] Neutrophil 2.6 1.8 - 7.7 [facility] Absolute k/ul LAB[facility]IES Lymph Absolute 1.2 1.0 - 4.8 [facility] k/ul [facility] [place] Absolute 0.5 0.1 - 0.7 [facility] k/ul [facility] Eos Absolute 0.2 0.0 - 0.5 [facility] k/ul [facility] Baso Absolute 0.0 0.0 - 0.2 [facility] k/ul [facility] Immature Gran 1 % [facility] Imm Gran 0.0 0 k/ul [facility] Absolute [facility] Specimen Anatomical Collection Method Collection Time Receive d Time (Source) Location / / Volume Laterality 01/30/2015 7:35 AM 5 7:46 CDT AM CDT Narrative [facility] - 01/30/2015 11:58 AM CDT Performed at [facility], [address] [place] [address] ??[id number] Kristine Brown MD LAB_1 Performing Organization Address City/[facility]/ZIP Code Phon e Number [facility] [phone] (ABNORMAL) BASIC METABOLIC PANEL,FASTING (01/30/2015 7:35 AM CDT) [employer] Method Time Signature Sodium 142 135 - 145 [facility] mmol/L [facility] Potassium 4.9 3.5 - 5.3 [facility] mmol/L [facility] Chloride 105 95 - 106 [facility] mmol/L [facility] CO2 28 22 - 30 [facility] mmol/L [facility] Anion Gap 9 7 - 16 [facility] (calc.) mmol/L [facility] Glucose 115 (H) 70 - 100 [facility] mg/dl [facility] Hours Fasting 12 hours [facility] Calcium 9.3 8.4 - [facility] 10.2 [facility] mg/dl BUN 20 7 - 20 [facility] mg/dl [facility] Creatinine 1.19 0.66 - [facility] 1.25 [facility] mg/dl GFR, Estimated >60 >60 [facility] ml/min/1. LAB[facility]ATORIES 73m2 GFR, Est., If >60 >60 [facility] Black ml/min/1. LABORATORIES 73m2 Specimen Anatomical Collection Method Collection Time Receive d Time (Source) Location / / Volume Laterality 01/30/2015 7:35 AM 5 7:46 CDT AM CDT Narrative [facility] - 01/30/2015 12:26 PM CDT Performed at [facility], [address] [place] [address] ??[phone] Kristine Brown MD LAB_1 Performing Organization Address City/[facility]/ZIP Code Phon e Number [facility] [phone] LIPID PANEL AND DIRECT LDL(IF NEEDED) (01/30/2015 7:35 AM CDT) [facility] Method Time Signature Hours Fasting 12 hours [facility] Cholesterol 164 0 - 199 [facility] mg/dl [facility] Triglyceride 79 0 - 149 [facility] mg/dl [facility] HDL 42 >40 mg/dl [facility] LDL, Calc. 106 0 - 129 [facility] mg/dl [facility] Non HDL Chol, 122 mg/dl [facility] Calc [facility] Specimen Anatomical Collection Method Collection Time Receive d Time (Source) Location / / Volume Laterality 01/30/2015 7:35 AM 5 7:46 CDT AM CDT Narrative [facility] - 01/30/2015 12:26 PM CDT Performed at [facility], [address] [place] [address] ??[id number] Kristine Brown MD LAB_1 Performing Organization Address City/State/ZIP Code Phon e Number [facility] [phone] documented in this encounter Visit Diagnoses Diagnosis Encounter for routine adult health exami nation without abnormal findings - Primary Essential hypertension (HRC) Unspecified essential hypertension Screening for deficiency anemia Screening for other and unspecified defi ciency anemia History of basal cell cancer Personal history of other malignant neop lasm of skin Screening PSA (prostate specific antigen ) Special screening for malignant neoplasm of prostate Essential hypertension (HRC) Unspecified essential hypertension Screening for deficiency anemia Screening for other and unspecified defi ciency anemia Screening PSA (prostate specific antigen ) Special screening for malignant neoplasm of prostate documented in this encounter Care Teams Cell Lead Relationship Specialty Start Date End Date Kristine Brown MD PCP - General Family Practice 03/25/13 [address] [place] [address] documented as of this encounter
--- OUTSIDE RECORDS SUMMARY | 2022-02-11 08:55 | XMS_ITS | Encounter Summary ---
:1945 Author Organization [employer] Address [address] [place] [address] Care Team Providers Name Role Phone Kristine Brown MD Primary Care Provider Reason for Visit Reason Comments FOLLOW-UP,BP MEDICATION CHECK Encounter Details Date Type Department Care Team Description 04/15/2016 Office Visit [facility] Kristine Brown MD Essential hypertension Practice [id number] [place] [address] (Primary Dx) [address] [place] [address] [phone] Social History Tobacco Use Types Packs/Day Years Used Date Smoking Tobacco: Former Cigarettes 1 9 Quit : 04/24/1971 Smokeless Tobacco: Never Alcohol Use Standard Drinks/Week Comments Yes 4.2 (1 standard drink = 0.6 oz pure alco hol) Sex Assigned at Date Recorded Not on file documented as of this encounter Last Filed Vital Signs Vital Sign Reading Time Taken Comments Blood Pressure 134/84 04/15/2016 10:09 AM HI TEACHER Pulse 72 04/15/2016 10:09 AM HI TEACHER Temperature - - Respiratory Rate - - Oxygen Saturation - - Inhaled Oxygen Concentration - - Weight - - Height - - Body Mass Index - - documented in this encounter Progress Notes Kristine Brown MD - 04/15/2016 10:24 AM CST Chief Complaint Patient presents with ??? FOLLOW-UP,BP ??? MEDICATION CHECK 71 yo M here for f/u HTN. He is taking and tolerating his medication as prescribed without SE's. Denies SOB, chest pain/pressure/tightness, lightheadedness/dizziness/passing out, DURANT's. He has home monitor runs in mid 130's/80's on most days. He had blood work done at [facility] in 11/06- he will forward these results to us by dropping them off for scanning in the next couple of weeks. Allergies Allergen Reactions ??? Oxycodone Other, see comments Patient refuses to take it due to family addiction issues. ROS: see above for pertinents. BP 134/84 mmHg Pulse 72 General: patient appears well, alert and oriented x 3, pleasant, cooperative. Chest: clear to IPPA. Heart: heart sounds are normal, no murmurs. Ext: no LE edema b/l. A/P: 1. HTN: stable, CPM. Patient will drop off outside [facility] labs sometime in the next 1-2 weeks for scanning. Kristine Brown MD 04/19/2016, 1:07 PM TEACHER documented in this encounter Plan of Treatment Upcoming Encounters Date Type Specialty Care Team Description 02/14/2022 Appointment General Dentistry Bailey Castrejon, [facility] [address] [place], [place] [phone] (Wo rk) documented as of this encounter Visit Diagnoses Diagnosis Essential hypertension (HRC) - Primary Unspecified essential hypertension documented in this encounter Care Teams Painter Supervisor Relationship Specialty Start Date End Date Kristine Brown MD PCP - General Family Practice 03/25/13 [address] [place], [place] [id number] documented as of this encounter
--- OUTSIDE RECORDS SUMMARY | 2022-02-11 08:55 | XMS_ITS | Encounter Summary ---
:1945 Author [facility] Address [address] [place] [address] Care Team Providers Name Role Phone Kristine Brown MD Primary Care Provider Reason for Referral Consult/Transfer Care (Routine) - Closed Specialty Diagnoses / Procedures Referred By Contact [place]er [place] [address] [place], [place] [address] Referral ID Status Reason Start Date Expiration Date Visits Requ ested Visits Authorized [id number] Closed 11/30/2015 02/28/2017 1 1 Scheduling Instructions Your provider has recommended an appoint ment with a [facility] nurse. A economic development coordinator will contact you within the next 3 busin ess days to assist you in setting up this appointment. Reason for Visit Reason Comments MEDICATION CHECK sweating and ringing in ears since starting Amlodipine Encounter Details Date Type Department Care Team Description 11/30/2015 Office Visit [facility] Kristine Brown MD Essential hypertension Practice [address] [place] [address] (Primary Dx) [address] [place] [address] [phone] Social History Tobacco Use Types Packs/Day Years Used Date Smoking Tobacco: Former Cigarettes 1 9 Quit : 04/24/1971 Smokeless Tobacco: Never Alcohol Use Standard Drinks/Week Comments Yes 4.2 (1 standard drink = 0.6 oz pure alco hol) Sex Assigned at Date Recorded Not on file documented as of this encounter Last Filed Vital Signs Vital Sign Reading Time Taken Comments Blood Pressure 114/79 11/30/2015 2:52 PM CDT Pulse 82 11/30/2015 2:52 PM CDT Temperature - - Respiratory Rate - - Oxygen Saturation - - Inhaled Oxygen Concentration - - Weight - - Height - - Body Mass Index - - documented in this encounter Patient Instructions Patient InstructionsKristine Brown MD - 11/30/2015 3:34 PM CDT Reduce the dose of amlodipine 5mg daily. Schedule nurse appt in 3 weeks for repeat BP check. documented in this encounter Progress Notes Kristine Brown MD - 11/30/2015 3:28 PM CDT Chief Complaint Patient presents with ??? MEDICATION CHECK sweating and ringing in ears since starting Amlodipine 70 yo M here for some increased sweating and ringing in the ears since increasing his dose of amlodipine 5 mg to 10 mg daily since 11/06/15. He has some increased sweating during the day-seems more sensitive to the heat when he increased thedosage. He also has some baseline ringing in his b/l ears since exposure to agent orange-[facility]this has been more noticeable since his increased dosage 3 weeks ago. He has not tried to decrease dosage yet. Allergies Allergen Reactions ??? Oxycodone Other, see comments Patient refuses to take it due to family addiction issues. ROS: see above for pertinents. BP 114/79 mmHg Pulse 82 General: He appears well, alert and oriented x 3, pleasant and cooperative. Chest: clear to IPPA. Heart: sounds are normal, no murmurs. Ext: no LE edema b/l. A/P: 1. HTN: BP at goal today; due to reported increased daytime sweating and ringing in b/l ears patientwill reduce dose to amlodipine 5mg PO Qdaily. Schedule nurse appt in 3 weeks for repeat BP check. He will RTC should his sx's of sweating and increased b/l tinnitus persist despite reduced amlodipine dosing. Kristine Brown MD 12/02/2015, 1:02 PM documented in this encounter Plan of Treatment Upcoming Encounters Date Type Specialty Care Team Description 02/14/2022 Appointment General Dentistry Bailey Castrejon, [facility] [address] [place] [address] (Wo rk) Scheduled Referrals Name Type Priority [facility] Diagnoses [facility] Referral Routine Ordered: 0 11/30/2015 ADULT/PEDS [[id number]] documented as of this encounter Visit Diagnoses Diagnosis Essential hypertension (HRC) - Primary Unspecified essential hypertension documented in this encounter Care Teams Billing Representative Relationship Specialty Start Date End Date Kristine Brown MD PCP - General Family Practice 03/25/13 [address] [place] [address] documented as of this encounter
--- OUTSIDE RECORDS SUMMARY | 2022-02-11 08:55 | XMS_ITS | Encounter Summary ---
:1945 Author Organization [facility] Address [address] [place] [address] Care Team Providers Name Role Phone Kristine Brown MD Primary Care Provider Reason for Visit Reason Comments Routine Eye Exam BRENNAN 04/01/14 [place], [place] and [place] more difficult especially having difficulty with intermediate distance, no glare or halos at night, no pain or discomfort Encounter Details Date Type Department Care Team Description 11/05/2015 Office Visit [facility] Roberto Carlos Hernandez S, Visit for eye and vision exa m (Primary Dx); [address] [place] Myopia, bilateral; [place], [place] [address] Regular astigmatism, bilater al; [phone] Presbyopia Social History Tobacco Use Types Packs/Day Years Used Date Smoking Tobacco: Former Cigarettes 1 9 Quit : 04/24/1971 Smokeless Tobacco: Never Alcohol Use Standard Drinks/Week Comments Yes 4.2 (1 standard drink = 0.6 oz pure alco hol) Sex Assigned at Date Recorded Not on file documented as of this encounter Patient Instructions Patient InstructionsRoberto Carlos Hernandez, OD - 11/05/2015 8:20 AM CDT [facility] you [facility] your [facility]. Many tests [...] the clinic in the future? Appointment Center: [phone] Eye Dept: [phone] Online Services: [email or web address] For after hours care, call the CareLine at [phone] or . We look forward to taking [...] Progress Notes Roberto Carlos Hernandez, OD - 11/05/2015 8:20 AM CDT HPI Chief Complaint Patient presents with ??? Routine Eye Exam BRENNAN 04/01/14 [place], [place] and [place] more difficult especially having difficulty with intermediate distance, no glare or halos at night, no pain or discomfort History Reviewed Assessment Myopia, astigmatism, presbyopia. Cataracts. Plan Spectacle Prescription given Return to clinic in 1 year(s) for routine eye exam. Roberto Carlos Hernandez, SOTO documented in this encounter Plan of Treatment Upcoming Encounters Date Type Specialty Care Team Description 02/14/2022 Appointment General Dentistry Bailey Castrejon, [facility] [address] [place], [place] [phone] (Wo rk) documented as of this encounter Visit Diagnoses Diagnosis Visit for eye and vision exam - Primary Examination of eyes and vision Myopia, bilateral Myopia Regular astigmatism, bilateral Presbyopia documented in this encounter Care Teams Cyberathlete Relationship Specialty Start Date End Date Kristine Brown MD PCP - General Family Practice 03/25/13 [address] [place], [place] [phone] documented as of this encounter
--- OUTSIDE RECORDS SUMMARY | 2022-02-11 08:55 | XMS_ITS | Encounter Summary ---
:1945 Author Organization [employer] Address [address] [place] [address] Care Team Providers Name Role Phone Kristine Brown MD Primary Care Provider Encounter Details Date Type Department Care Team Description 01/30/2015 Orders Only [facility] or Essential hypertension; [address] [facility] Screening for deficiency ane hayden; [place], [place] [address] Screening PSA (prostate spec ific antigen) [phone] Social History Tobacco Use Types Packs/Day Years [...] 02/14/2022 Appointment General Dentistry Bailey Castrejon, [facility] [address] [place] [address] (Wo rk) documented as of this encounter Procedures Procedure Name Priority Date/Time Associated Diagnosis Comme nts BASIC METABOLIC Routine 01/30/2015 7:35 AM Essential Result s for this PANEL,FASTING CDT hypertension procedure are in the results section. LIPID PANEL AND Routine 01/30/2015 7:35 AM Essential Result s for this DIRECT LDL(IF CDT hypertension procedure are in NEEDED) the results section. COMPLETE BLOOD Routine 01/30/2015 7:35 AM Screening for Result s for this COUNT-W/DIFF CDT deficiency anemia procedure are in the results section. PROSTATIC SPECIFIC Routine 01/30/2015 7:35 AM Screening PSA Re sults for this ANTIGEN(SCREEN) CDT (prostate specific proced ure are in antigen) the results section. ALBUMIN/CREAT RATIO Routine 01/30/2015 7:35 AM Essential Re sults for this CDT hypertension procedure are i n the results section. documented in this encounter Results PROSTATIC SPECIFIC ANTIGEN(SCREEN) (V76.44) (01/30/2015 7:35 AM CDT) athologist Signature Prostatic Spec 3.08 0.00 - [facility] Ag 4.00 ng/ml LAB[facility]ATORIES Specimen Anatomical Collection Method Collection Time Receive d Time (Source) Location / / Volume Laterality 01/30/2015 7:35 AM 5 7:46 CDT AM CDT Narrative [facility] - 01/30/2015 12:26 PM CDT Performed at [facility], [address] [place] [address] ??[phone] Kristine Brown MD LAB_1 Performing Organization Address City/[facility] Phon e Number [facility] [phone] MICROALB/CREAT RATIO (01/30/2015 7:35 AM CDT) [facility] Method Time Signature Albumin, <0.5 mg/dl [facility] Urine, Random LABORATORIES Creatinine,Ur 173.0 mg/dl [facility] Random [facility] Alb/Creat <3 <30 mg/g [facility] Ratio, Urine, creatinine LABORATORIES Random Specimen Anatomical Collection Method Collection Time Receive d Time (Source) Location / / Volume Laterality Urine specimen 01/30/2015 7:35 AM 015 7:46 (specimen) CDT AM CDT Narrative [facility] - 01/30/2015 2:36 PM C DT Performed at [facility], [address] [place] [address] ??[phone] Kristine Brown MD LAB_1 Performing Organization Address [facility] Phon e Number [facility] [phone] (ABNORMAL) HEMOGRAM/PLTS/DIFF (01/30/2015 7:35 AM CDT) [facility] Method Time Signature WBC 4.6 4.0 - [...] [facility] Lymph 26 % [facility] [place] 12 % [facility] Eos 5 % [facility] Baso 0 % [facility] Neutrophil 2.6 1.8 - 7.7 [facility] Absolute k/ul LABORATOR[facility] Lymph Absolute 1.2 1.0 - 4.8 [facility] k/ul [facility] [place] Absolute 0.5 0.1 - 0.7 [facility] k/ul [...] - 01/30/2015 11:58 AM CDT Performed at [facility], [address] [place] [address] ??[phone] Kristine Brown MD LAB_1 Performing Organization Address City/State/ZIP Code Phon e Number [facility] [phone] (ABNORMAL) BASIC METABOLIC PANEL,FASTING (01/30/2015 7:35 AM CDT) [facility] Method Time Signature Sodium 142 135 - [...] - 01/30/2015 12:26 PM CDT Performed at [facility], [address] [place] [address] ??[phone] Kristine Brown MD LAB_1 Performing Organization Address City/[facility] Phon e Number [facility] [phone] LIPID PANEL AND DIRECT LDL(IF NEEDED) (01/30/2015 7:35 AM CDT) [facility] gist Method Time Signature Hours Fasting 12 hours [...] - 01/30/2015 12:26 PM CDT Performed at [facility], [address] [place] [address] ??[phone] Kristine Brown MD LAB_1 Performing Organization Address City/[facility] Phon e Number [facility] [phone] documented in this encounter Visit Diagnoses Diagnosis Essential hypertension (HRC) Unspecified essential hypertension Screening for deficiency anemia Screening for other and unspecified defi ciency anemia Screening PSA (prostate specific antigen ) Special screening for malignant neoplasm of prostate documented in this encounter Care Teams Relocation Services Specialist Relationship Specialty Start Date End Date Brown, Kristine S, MD PCP - General Family Practice 03/25/13 [address] [place] [address] documented as of this encounter
--- OUTSIDE RECORDS SUMMARY | 2022-02-11 08:55 | XMS_ITS | Encounter Summary ---
:1945 Author Organization [employer] Address [address] [place] [address] Care Team Providers Name Role Phone Unassigned, Provider Primary Care Provider Unavailable Encounter Details Date Type Department Care Team Description 10/15/2012 Orders Only [facility] Hypertension [address] [place], [place] [address] Social History Tobacco Use [...] Dentistry Bailey Castrejon, [facility] [address] [place], [place] [id number] (Wo rk) documented as of this encounter Procedures Procedure Name Priority Date/Time Associated Diagnosis Comme nts BASIC METABOLIC Routine 10/15/2012 10:53 Hypertension Results for this PANEL AM CDT procedure are i n the results section. ALBUMIN/CREAT RATIO Routine 10/15/2012 10:53 Hypertension Resu lts for this AM CDT procedure are i n the results section. documented in this encounter Results MICROALB/CREAT RATIO (10/15/2012 10:53 AM CDT) [facility] Method Time Signature Albumin, <0.5 mg/dl [facility] Urine, Random LAB[facility] Creatinine,Ur 105.4 mg/dl [facility] Alb/Creat <5 <30 mg/g [facility] Ratio, Urine, creatinine LABORATORIES Random Specimen Anatomical Collection Method Collection Time Receive d Time (Source) Location / / Volume Laterality Urine specimen 10/15/2012 10:53 3 (specimen) AM CDT 11:03 AM CDT Narrative [facility] - 10/15/2012 4:09 PM C DT Performed at On license of [facility] [employer] [facility], [address] [place] [address] ??[phone] Kristine Brown MD LAB_1 Performing Organization Address [facility] Phon e Number [facility] [phone] BASIC METABOLIC PANEL (10/15/2012 10:53 AM CDT) Analysis Performed At Patho logist Time Signature BUN 18 7 - 20 [facility] mg/dl LAB[facility]ATORIES Sodium 143 135 - 145 [facility] mmol/L [facility] Potassium 4.8 3.5 - 5.3 [facility] mmol/L [facility] Chloride 104 95 - 106 [facility] mmol/L [facility] CO2 29 22 - 30 [facility] mmol/L [facility] Glucose 92 70 - 180 [facility] mg/dl LAB[facility] Creatinine 1.09 0.66 - [facility] 1.25 mg/dl [facility] GFR, Estimated >60.0 >60 [facility] ml/min/1.7 LAB[facility]ATORIES 3m2 GFR, Est., If >60.0 >60 [facility] Black ml/min/1.7 LABORATORIES 3m2 Calcium 9.6 8.4 - 10.2 [facility] mg/dl LAB[facility]IES Anion Gap 10 7 - 16 [facility] (calc.) mmol/L LAB[facility]ATORIES Specimen Anatomical Collection Method Collection Time Receive d Time (Source) Location / / Volume Laterality 10/15/2012 10:53 10/15/2012 AM CDT 11:02 AM CDT Narrative [facility] - 10/15/2012 4:52 PM C DT Performed at On license of [facility] [employer] [facility], [address] [place] [address] ??[phone] Kristine Brown MD LAB_1 Performing Organization Address [facility] Phon e Number [facility] [phone] documented in this encounter Visit Diagnoses Diagnosis Hypertension (HRC) Unspecified essential hypertension documented in this encounter Care Teams Loading Dock Helper Relationship Specialty Start Date End Date Unassigned, Provider PCP - General 01/26/00 03/24/[address] [place] [address] documented as of this encounter
--- OUTSIDE RECORDS SUMMARY | 2022-02-11 08:55 | XMS_ITS | Encounter Summary ---
:1945 Author Organization [facility] Address [address] [place] [address] Care Team Providers Name Role Phone Phillip Brown MD Primary Care Provider Reason for Visit Reason Comments Refill lisinopril (ZESTRIL) 40 MG t ablet [Pharmacy Med Name: LISINOPRIL 40MG TABS] Encounter Details Date Type Department Care Team Description 04/18/2016 Refill [facility] Phillip Brown MD Refill (lisinopril Practice [address] (ZESTRIL) 40 MG tablet [address] [place], [place] [Pharmacy Med Name: [place], [place] [address] LISINOPRIL 40MG TABS]) [phone] (Wo rk) Social History Tobacco Use Types Packs/Day Years Used Date Smoking Tobacco: Former Cigarettes 1 9 Quit : 04/24/1971 Smokeless Tobacco: Never Alcohol Use Standard Drinks/Week Comments Yes 4.2 (1 standard drink = 0.6 oz pure alco hol) Sex Assigned at Date Recorded Not on file documented as of this encounter Nursing Notes Interface, Out Surescripts Prov Query - 04/18/2016 9:00 AM CST lisinopril (ZESTRIL) 40 MG tablet [Pharmacy Med Name: LISINOPRIL 40MG TABS] Protocol: Cardiovascular - Randy Inhibitors -> A duplicate request was processed on 04/15/2016. -> Refill x 3 months (courtesy eliana, overdue for a(n) Cr check and K check) Last qualifying visit: 04/15/2016 (in Family Practice) Next scheduled visit: None Last ordered by PHILLIP BROWN S: 04/15/2016 (3 days ago) QTY: 90, Refills: 3, Sig: take 1 tab by mouth daily. (changed but equivalent) SBP: 134 mm Hg on 04/15/2016 DBP: 84 mm Hg on 04/15/2016 Cr: 1.1 mg/dL on 03/13/2015 K: 5 mEq/L on 03/13/2015 Powered by [employer], Reference: [id number], 04/18/2016 9:00:24 AM GERIATRIC NURSE PRACTITIONER, Pool: ABARCA RN ([id number]) ATRIC NURSE PRACTITIONER Interface, Out [employer] Prov Query - 04/18/2016 9:00 AM CST The following lab order(s) may be associated with the following Patient Result Comment (Entered by Aby Gayle RN at 03/13/2015 4:04 PM): JUAN Ayers,Your test results are within normal range. Feel free to contact me if you have questions, by using the 'send a message' link at the top of the page.Phillip Brown, STEFAN/heidy ATRIC NURSE PRACTITIONER Interface, Out Surescripts Prov Query - 04/18/2016 9:00 AM CST The following lab order(s) may be associated with the following Patient Result Comment (Entered by Aby Gayle RN at 03/13/2015 4:04 PM): CREATININE / GFR Dear Armen,Your test results are within normal range. Feel free to contact me if you have questions, by using the 'send a message' link at the top of the page.Phillip Brown, MDRF/gm ATRIC NURSE PRACTITIONER documented in this encounter Plan of Treatment Upcoming Encounters Date Type Specialty Care Team Description 02/14/2022 Appointment General Dentistry Bailey Castrejon, [facility] [address] [place] [address] (Wo rk) documented as of this encounter Visit Diagnoses Not on filedocumented in this encounter Care Teams Editor Publications Relationship Specialty Start Date End Date Phillip Brown MD PCP - General Family Practice 03/25/13 [address] [place] [address] documented as of this encounter
--- OUTSIDE RECORDS SUMMARY | 2022-02-11 08:55 | XMS_ITS | Encounter Summary ---
:1945 Author Organization [facility] Address [address] [place] [address] Care Team Providers Name Role Phone Kristine Brown MD Primary Care Provider Reason for Visit Reason Comments Medication Questions Amlodipine 10mg qty and dire ctons do not match Encounter Details Date Type Department Care Team Description 04/20/2016 Telephone [facility] Kristine Brown MD Medication Questions Practice [address] [facility] (Amlodipine 10mg qty [address] [place], [place] and directons do not [place], [place] [address] match) [phone] (Wo rk) Social History Tobacco Use Types Packs/Day Years Used Date Smoking Tobacco: Former Cigarettes 1 9 Quit : 04/24/1971 Smokeless Tobacco: Never Alcohol Use Standard Drinks/Week Comments Yes 4.2 (1 standard drink = 0.6 oz pure alco hol) Sex Assigned at Date Recorded Not on file documented as of this encounter Nursing Notes Kristine Brown MD - 04/20/2016 1:02 PM CST New rx entered.Kristine Brown MD 04/20/2016, 1:02 PM INE TOOL ELECTRICIAN Vicki Echevarria - 04/20/2016 12:[address] Brown Amlodipine 10mg qty and directons do not match Patient history : take 1 tablet daily / is patient now taking one-half tablet daily? Please resend with corrected qty of 45 Thank you INE TOOL ELECTRICIAN documented in this encounter Plan of Treatment Upcoming Encounters Date Type Specialty Care Team Description 02/14/2022 Appointment General Dentistry Bailey Castrejon, [facility] [address] [place], [place] [phone] (Wo rk) documented as of this encounter Visit Diagnoses Not on filedocumented in this encounter Care Teams Sugar Mixer Relationship Specialty Start Date End Date Kristine Brown MD PCP - General Family Practice 03/25/13 [address] [place] [address] documented as of this encounter
--- OUTSIDE RECORDS SUMMARY | 2022-02-11 08:55 | XMS_ITS | Encounter Summary ---
:1945 Author Organization [facility] Address [address] [place] [address] Care Team Providers Name Role Phone Kristine Brown MD Primary Care Provider Encounter Details Date Type Department Care Team Description 12/17/2014 Notes/Orders [facility] Nighat Nieto, Nuclear cataract, [address] [address] [facility] (Primary Dx) [phone] [address]45[address] Social History Tobacco Use Types Packs/Day Years Used Date Smoking Tobacco: Former Cigarettes 1 9 Quit : 04/24/1971 Smokeless Tobacco: Never Alcohol Use Standard Drinks/Week Comments Yes 4.2 (1 standard drink = 0.6 oz pure alco hol) Sex Assigned at Date Recorded Not on file documented as of this encounter Nursing Notes Cherelle Webb - 01/29/2015 9:44 AM CDT Reminder letter mailed to patient. Cherelle TATE Tushar Bingham COA - 12/17/2014 4:18 PM CDT Needs to see a general ophthalmology Tushar PIEDRA documented in this encounter Plan of Treatment Upcoming Encounters Date Type Specialty Care Team Description 02/14/2022 Appointment General Dentistry Bailey Castrejon, [facility] [address] [place], [place] [phone] (Wo rk) documented as of this encounter Visit Diagnoses Diagnosis Nuclear cataract, unspecified laterality - Primary documented in this encounter Care Teams Glaze Maker Relationship Specialty Start Date End Date Kristine Brown MD PCP - General Family Practice 03/25/13 [address] [place] [address] documented as of this encounter
--- OUTSIDE RECORDS SUMMARY | 2022-02-11 08:55 | XMS_ITS | Encounter Summary ---
:1945 Author Organization [employer] Address [address] [place] [address] Care Team Providers Name Role Phone Kristine Brown MD Primary Care Provider Reason for Visit Reason Comments BP CHECK,NURSE Encounter Details Date Type Department Care Team Description 04/20/2015 Telephone [facility] Kristine Brown MD BP CHECK,NURSE Practice [address] [facility] [address] [place] [address] [place] [address] [phone] Social History Tobacco Use Types Packs/Day Years Used Date Smoking Tobacco: Former Cigarettes 1 9 Quit : 04/24/1971 Smokeless Tobacco: Never Alcohol Use Standard Drinks/Week Comments Yes 4.2 (1 standard drink = 0.6 oz pure alco hol) Sex Assigned at Date Recorded Not on file documented as of this encounter Nursing Notes Kristine Brown MD - 04/20/2015 12:22 PM CST Below noted. Kristine Brown MD 04/20/2015, 12:22 PM LY LIVING EDUCATOR Radha Wallis LPN - 04/20/2015 10:02 AM CST SEBASTIAN BP-132/81 9-. Radha Wallis LPN 04/20/2015, 10:03 AM LY LIVING EDUCATOR documented in this encounter Plan of Treatment Upcoming Encounters Date Type Specialty Care Team Description 02/14/2022 Appointment General Dentistry Bailey Castrejon, [facility] [address] [place] [address] (Wo rk) documented as of this encounter Visit Diagnoses Not on filedocumented in this encounter Care Teams Roofer Helper Relationship Specialty Start Date End Date Kristine Brown MD PCP - General Family Practice 03/25/13 [address] [place], [place] [phone] documented as of this encounter
--- OUTSIDE RECORDS SUMMARY | 2022-02-11 08:55 | XMS_ITS | Encounter Summary ---
:1945 Author Organization [employer] Address [address] [place] [address] Care Team Providers Name Role Phone Kristine Brown MD Primary Care Provider Reason for Visit Reason Comments BP CHECK,NURSE Consult/Transfer Care (Routine) - Closed Specialty Diagnoses / Procedures Referred By Contact Refer red [place] [id number] [place] [phone] Referral ID Status Reason Start Date Expiration Date Visits Requ ested Visits Authorized [id number] Closed 03/13/2015 06/11/2016 1 1 Encounter Details Date Type Department Care Team Description 04/20/2015 Nursing Visit [facility] Routin e adult health Department maintenance (Primary Dx) [address] [place] [address] Social History Tobacco Use Types [...] Sign Reading Time Taken Comments Blood Pressure 132/81 04/20/2015 9:41 AM DEPUTY DISTRICT CUSTOMS DIRECTOR Pulse 75 04/20/2015 9:41 AM DEPUTY DISTRICT CUSTOMS DIRECTOR Temperature - - Respiratory Rate - - Oxygen Saturation - - Inhaled Oxygen Concentration - - Weight - - Height - - Body Mass Index - - documented in this encounter Progress Notes Radha Wallis LPN - 04/20/2015 9:32 AM CST S Armen Crump here today for follow up blood pressure check. Medications were reviewed: currently prescribed and taking blood pressure medication(s) O There were no vitals taken for this visit. Blood pressures recorded: BP Readings from Last 1 Encounters: 03/13/15 1017 151/97 03/13/15 0955 171/98 A BP readings at goal. P Telephone encounter sent to PCP Radha Wallis LPN TY DISTRICT CUSTOMS DIRECTOR documented in this encounter Plan of Treatment Upcoming Encounters Date Type Specialty Care Team Description 02/14/2022 Appointment General Dentistry Bailey Castrejon, [facility] [address] [place], [place] [phone] (Wo rk) documented as of this encounter Visit Diagnoses Diagnosis Routine adult health maintenance - Prima ry Routine general medical examination at a health care facility documented in this encounter Care Teams Basketball Assembler Relationship Specialty Start Date End Date Kristine Brown MD PCP - General Family Practice 03/25/13 [address] [place], [place] [phone] documented as of this encounter
--- OUTSIDE RECORDS SUMMARY | 2022-02-11 08:55 | XMS_ITS | Encounter Summary ---
:1945 Author [facility] Address [address] [place] [address] Care Team Providers Name Role Phone Kristine Brown MD Primary Care Provider Reason for Referral Consult/Transfer Care (Routine) - Closed Specialty Diagnoses / Procedures Referred By Contact Refer red To Contact Diagnoses Gout, unspecified cause, unspecified chronicity, unspecified site Prateek Britton MD Ford, Rhea S, MD [address] [facility] [address] [place] [address] [place] [address] Fax: Referral ID Status Reason Start Date Expiration Date Visits Requ ested Visits Authorized [id number] Closed 07/27/2016 10/26/2017 1 1 Scheduling Instructions Your provider has recommended an appoint ment to follow up on your high blood pressure. A flight crew scheduler will contact you t o assist you in setting up this appointment. If you prefer, you can contact your [facility] clinic to schedule. There are no co-pays for medication therapy managemen t (clinical pharmacist) or nurse blood pressure checks. Reason for Visit Reason Comments Consult, New Patient Consult/Transfer Care (Routine) - Closed Specialty Diagnoses / Procedures Referred By Contact Refer red To Contact Diagnoses [place] [address] [place], [place] [address] Referral ID Status Reason Start Date Expiration Date Visits Requ ested Visits Authorized [id number] Closed 07/14/2016 10/13/2017 1 1 Encounter Details Date Type Department Care Team Description 07/27/2016 Office Visit Specialty Center 401 Prateek Britton G out, unspecified Rheumatology Clinic cause, unspecified [address] chronicity, [place] [address] [place], [place] unspecified site [phone] (Primary Dx) Social History Tobacco Use Types [...] Sign Reading Time Taken Comments Blood Pressure 153/88 07/27/2016 8:40 AM CDT Pulse 79 07/27/2016 8:40 AM CDT Temperature - - Respiratory Rate - - Oxygen Saturation - - Inhaled Oxygen Concentration - - Weight 107.9 kg (237 lb 12.8 oz) 07/27/2016 8:02 AM CDT Height 182.9 cm (6') 07/27/2016 8:02 AM CDT Body Mass Index 32.25 07/27/2016 8:02 AM CDT documented in this encounter Patient Instructions Patient InstructionsPrateek Britton MD - 07/27/2016 8:35 AM CDT I would like you to start allopurinol 100 mg daily to help get rid of your uric acid I would like you to start colchicine 0.6 mg daily to help prevent a gout flare. We will check your blood work today. We will check your blood work 2 weeks after you start allopurinol. I'd like to see you back in 3 months. Call me with any issues. __ Gout [...] encounter Progress Notes Prateek Britton MD - 07/27/2016 8:03 AM CDT [facility] Rheumatology Outpatient Consultation Report Date: 07/27/2016 Reason for Visit: eval for gout History of Present Illness: Armen rCump is a 71 y.o. male who presents for further evaluation of gout. Patient's records reviewed and pertinent data summarized below. The patient states for the last 15 [...] ARNIE, negative rheumatoid factor, negative Lyme antibody. Review of Systems: Gen - no history for fevers/chills; weight has been stable Pysch - no h/o depression or anxiety [employer] - denies h/o new or recurrent headaches Eyes - denies history of red or painful eyes; no significant complaints of dry eyes ENT - denies new hair loss. No history or oral ulcers. No h/o dry mouth CV - Denies chest pains, including exertional. Denies h/o pericarditis Resp - denies h/o dyspnea on exertion; no history of pleuritis, denies chronic cough. GI - No h/o abdominal pain. No history of hemoatochezia/melena, recurrent loose stools. No history of IBD - Denies changes in urine. No h/o kidney stones Skin - Denies rashes Ext - Denies Raynaud's symptoms MSK - per above Heme - No history of blood clots. Endo - no history of thyroid disease Complete 10 point ROS reviewed with patient and negative unless specified above Past Medical History: Active Ambulatory Problems Diagnosis Date Noted ??? HTN (hypertension) ([facility]) Nurse managed 04/09/2013 ??? History of basal cell cancer 01/16/2015 ??? Prediabetes 02/16/2015 Resolved Ambulatory Problems Diagnosis Date Noted ??? No Resolved Ambulatory Problems No Additional Past Medical History Outpatient Medications: Outpatient Prescriptions Prior to Visit Medication Sig Dispense Refill ??? amLODIPine (NORVASC) 10 MG tablet Take 0.5 Tabs by mouth daily. 45 Tab 3 ??? lisinopril (ZESTRIL) 40 MG tablet Take 1 Tab by mouth daily. 90 Tab 3 ??? Multiple Vitamins-Iron (MULTIVITAMIN/IRON OR) ??? predniSONE (DELTASONE) 20 MG tablet Take 2 Tabs by mouth daily. (Patient not taking: Reported on07/27/2016) 14 Tab 0 No facility-administered medications prior to visit. Social History: Smoking history - denies EToh/drug history - occasional ETOH use, denies illicits Family History: Denies history for known autoimmune disorders, including lupus, rheumatoid arthritis Denies family hx of gout Objective: Filed Vitals: 07/27/16 0802 BP: 138/91 Pulse: 90 Height: 6' (1.829 m) Weight: 237 lb 12.8 oz (107.865 kg) General: pleasant, comfortable; ambulates without difficulty HEENT: no scalp rash or areas of overt hair loss; no facial rash; no ocular inflammation; oral exam normal; Normal salival pool Neck: supple, no adenopathy CV: RRR, no M/G/Rs Resp: clear bilaterally; no wheezing GI: soft, nontender; + bowel sounds Lymph/Ext: no peripheral edema Skin: no rashes Neuro - strength and sensation is grossly intact and symmetric throughout MSK - Shoulder - full ROM noted passively and actively with shoulder abduction, internal/external rotation bilaterally. No focal tenderness over SC, AC, or GH joints on palpation. Elbow - full ROM and no joint effusion on exam; nontender bilaterally Wrist - full ROM and no joint effusion on exam; nontender joints bilaterally Hand - T0S0 of bilateral DIPs, PIPs, MCP joints. 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 male who is presenting with a history of an inflammatory arthropathy. ##non-crystal proven Gout: Patient's history is most [...] thus would benefit from urate lowering therapy. We will start allopurinol 100 mg daily with colchicine 0.6 mg daily for prophylaxis. We will recheck labs today. Orders Placed This Encounter ??? Uric Acid ??? Complete Blood Count-W/Diff ??? AST ??? ALT (SGPT) ??? Creatinine / GFR ??? Complete Blood Count-W/Diff ??? AST ??? ALT (SGPT) ??? Creatinine / GFR ??? Uric Acid ??? Hypertension (HTN) Follow Up ([id number]) ??? allopurinol (ZYLOPRIM) 100 MG tablet ??? colchicine (COLCRYS) 0.6 MG tablet -start allopurinol 100 mg daily (risks/benefits of medication discussed) -start colchicine 0.6 mg daily for prophylaxis -re-check uric acid in 2 weeks RTC in 3 months Prateek Britton MD 07/27/2016, 8:03 AM documented in this encounter Plan of Treatment Upcoming Encounters Date Type Specialty Care Team Description 02/14/2022 Appointment [facility] [address] [place] [address] (Wo rk) Scheduled Referrals Name Type Priority Associated Diagnoses Order S chedule Hypertension (HTN) Referral Routine Gout, unspecified Orde red: 07/27/2016 Follow Up ([id number]) cause, unspecified chronicity, unspecified site documented as of this encounter Results Uric Acid (2017 2:56 PM CDT) athologist Signature Uric Acid 6.0 3.5 - 7.2 [facility] mg/dl Specimen Anatomical Collection Method Collection Time Receive d Time (Source) Location / / Volume Laterality 2017 2:56 PM 7 3:01 CDT PM CDT Narrative [facility] - 2017 7:18 PM C DT Performed at [facility], [address] ??[phone] Prateek Britton MD LAB_1 Performing Organization Address City/State/ZIP Code Phon e Number [facility] [phone] Creatinine / GFR (2017 2:56 PM CDT) [...] 2017 7:18 PM C DT Performed at [facility], [address] [place] [address] ??[phone] Prateek Britton MD LAB_1 Performing Organization Address [facility] Phon e Number [facility] [phone] ALT (SGPT) (2017 2:56 PM CDT) athologist Signature ALT (SGPT) 25 0 - 55 U/L [facility] Specimen Anatomical Collection Method Collection Time Receive d Time (Source) Location / / Volume Laterality 2017 2:56 PM 7 3:01 CDT PM CDT Narrative [facility] - 2017 7:18 PM C DT Performed at [facility], [address] [place] [address] ??[phone] Prateek Britton MD LAB_1 Performing Organization Address City/[facility] Phon e Number [facility] [phone] AST (2017 2:56 PM CDT) athologist Signature AST (SGOT) 19 10 - 40 U/L [facility] Specimen Anatomical Collection Method Collection Time Receive d Time (Source) Location / / Volume Laterality 2017 2:56 PM 7 3:01 CDT PM CDT Narrative [facility] - 2017 7:18 PM C DT Performed at [facility], [address] [place] [address] ??[phone] Prateek Britton MD LAB_1 Performing Organization Address City/State/ZIP Code Phon e Number [facility] [phone] (ABNORMAL) Complete Blood Count-W/Diff (2017 2:56 PM CDT) Patholo gist Method Time Signature WBC 4.7 4.0 [...] [facility] Lymph 20 % [facility] [place] 9 % [facility] Eos 2 % [facility] Baso 0 % [facility] Neutrophil 3.2 1.8 - 7.7 [facility] Lymph Absolute 0.9 (L) 1.0 - 4.8 [facility] [place] Absolute 0.4 0.1 - 0.7 [facility] [...] 2017 7:26 PM C DT Performed at [facility], [address] [place] [address] ??[phone] Prateek Britton MD LAB_1 Performing Organization Address City/State/ZIP Code Phon e Number [facility] [phone] Uric Acid (10/26/2016 9:01 AM CDT) P athologist Signature Uric Acid 6.5 3.5 - 7.2 [facility] mg/dl Specimen Anatomical Collection Method Collection Time Receive d Time (Source) Location / / Volume Laterality 10/26/2016 9:01 AM 7 9:03 CDT AM CDT Narrative [facility] - 10/26/2016 12:10 PM CDT Performed at [facility], [address] [place] [address] ??[phone] Prateek Britton MD LAB_1 Performing Organization Address City/[facility] Phon e Number [facility] [phone] Creatinine / GFR (10/26/2016 9:01 AM CDT) [...] - 10/26/2016 12:10 PM CDT Performed at [address] ??[phone] Prateek Britton MD LAB_1 Performing Organization Address [facility] Phon e Number [facility] [phone] ALT (SGPT) (10/26/2016 9:01 AM CDT) P athologist Signature ALT (SGPT) 23 0 - 55 U/L [facility] Specimen Anatomical Collection Method Collection Time Receive d Time (Source) Location / / Volume Laterality 10/26/2016 9:01 AM 7 9:03 CDT AM CDT Narrative [facility] - 10/26/2016 12:10 PM CDT Performed at [facility], [address] [place] [address] ??[phone] Prateek Britton MD LAB_1 Performing Organization Address City/[facility] Code Phon e Number [facility] [phone] AST (10/26/2016 9:01 AM CDT) P athologist Signature AST (SGOT) 17 10 - 40 U/L [facility] Specimen Anatomical Collection Method Collection Time Receive d Time (Source) Location / / Volume Laterality 10/26/2016 9:01 AM 7 9:03 CDT AM CDT Narrative [facility] - 10/26/2016 12:10 PM CDT Performed at [facility], [address] [place] [address] ??[phone] Prateek Britton MD LAB_1 Performing Organization Address City/State/ZIP Code Phon e Number [facility] [phone] (ABNORMAL) Complete Blood Count-W/Diff (10/26/2016 9:01 AM CDT) Patholo gist Method Time Signature WBC 6.3 4.0 [...] [facility] Lymph 13 % [facility] [place] 9 % [facility] Eos 2 % [facility] Baso 0 % [facility] Neutrophil 4.7 1.8 - 7.7 [facility] Lymph Absolute 0.8 (L) 1.0 - 4.8 [facility] [place] Absolute 0.6 0.1 - 0.7 [facility]ul [...] 10/26/2016 1:21 PM C DT Performed at [facility], [address] [place] [address] ??[phone] Prateek Britton MD LAB_1 Performing Organization Address [facility] Phon e Number [facility] [phone] (ABNORMAL) Uric Acid (08/12/2016 7:53 AM CDT) P athologist Signature Uric Acid 7.4 (H) 3.5 - 7.2 [facility] mg/dl Specimen Anatomical Collection Method Collection Time Receive d Time (Source) Location / / Volume Laterality 08/12/2016 7:53 AM 7 7:54 CDT AM CDT Narrative [facility] - 08/12/2016 12:22 PM CDT Performed at [facility], [address] [place] [address] ??[phone] Prateek Britton MD LAB_1 Performing Organization Address [facility] Phon e Number [facility] [phone] (ABNORMAL) Creatinine / GFR (08/12/2016 7:53 AM CDT) Patholo gist Method Time Signature Creatinine 1.27 (H) [...] - 08/12/2016 12:22 PM CDT Performed at [facility], [address] [place] [address] ??[phone] Prateek Britton MD LAB_1 Performing Organization Address [facility]/ZIP Code Phon e Number [facility] [phone] ALT (SGPT) (08/12/2016 7:53 AM CDT) P athologist Signature ALT (SGPT) 31 0 - 55 U/L [facility] Specimen Anatomical Collection Method Collection Time Receive d Time (Source) Location / / Volume Laterality 08/12/2016 7:53 AM 7 7:54 CDT AM CDT Narrative [facility] - 08/12/2016 12:22 PM CDT Performed at [facility], [address] [place] [address] ??[phone] Prateek Britton MD LAB_1 Performing Organization Address [facility] Phon e Number [facility] [phone] AST (08/12/2016 7:53 AM CDT) athologist Signature AST (SGOT) 23 10 - 40 U/L [facility] Specimen Anatomical Collection Method Collection Time Receive d Time (Source) Location / / Volume Laterality 08/12/2016 7:53 AM 7 7:54 CDT AM CDT Narrative [facility] - 08/12/2016 12:22 PM CDT Performed at [facility], [address] [place] [address] ??[phone] Prateek Britton MD LAB_1 Performing Organization Address [facility]/ZIP Code Phon e Number [facility] [phone] (ABNORMAL) Complete Blood Count-W/Diff (08/12/2016 7:53 AM CDT) [facility] Method Time Signature WBC 3.0 (L) [...] [facility] Lymph 26 % [facility] [place] 19 % [facility] Eos 6 % [facility] Baso 0 % [facility] Neutrophil 1.4 (L) 1.8 - 7.7 [facility] Lymph Absolute 0.8 (L) 1.0 - 4.8 [facility] [place] Absolute 0.6 0.1 - 0.7 [facility]ul [...] 08/12/2016 1:36 PM C DT Performed at [facility], [address] [place] [address] ??[phone] Prateek Britton MD LAB_1 Performing Organization Address City/[facility] Phon e Number [facility] [phone] Creatinine / GFR (07/27/2016 8:53 AM CDT) [...] 07/27/2016 1:15 PM C DT Performed at [facility], [address] [place] [address] ??[phone] Prateek Britton MD LAB_1 Performing Organization Address City/State/ZIP Code Phon e Number [facility] [phone] ALT (SGPT) (07/27/2016 8:53 AM CDT) P athologist Signature ALT (SGPT) 26 0 - 55 U/L [facility] Specimen Anatomical Collection Method Collection Time Receive d Time (Source) Location / / Volume Laterality 07/27/2016 8:53 AM 7 8:56 CDT AM CDT Narrative [facility] - 07/27/2016 1:15 PM C DT Performed at [facility], [address] [place] [address] ??[phone] Prateek Britton MD LAB_1 Performing Organization Address [facility]/ZIP [facility] Phon e Number [facility] [phone] AST (07/27/2016 8:53 AM CDT) athologist Signature AST (SGOT) 18 10 - 40 U/L [facility] Specimen Anatomical Collection Method Collection Time Receive d Time (Source) Location / / Volume Laterality 07/27/2016 8:53 AM 7 8:56 CDT AM CDT Narrative [facility] - 07/27/2016 1:15 PM C DT Performed at [facility], [address] [place] [address] ??[phone] Prateek Britton MD LAB_1 Performing Organization Address City/[facility]/ZIP Code Phon e Number [facility] [phone] Complete Blood Count-W/Diff (07/27/2016 8:53 AM CDT) [...] [facility] Lymph 22 % [facility] [place] 13 % [facility] Eos 3 % [facility] Baso 0 % [facility] Neutrophil 3.0 1.8 - 7.7 [facility] Lymph Absolute 1.1 1.0 - 4.8 [facility] [place] Absolute 0.7 0.1 - 0.7 [facility]ul [...] 07/27/2016 1:48 PM C DT Performed at [facility], [address] [place] [address] ??[phone] Prateek Britton MD LAB_1 Performing Organization Address City/[facility] Phon e Number [facility] [phone] (ABNORMAL) Uric Acid (07/27/2016 8:53 AM CDT) P athologist Signature Uric Acid 8.1 (H) 3.5 - 7.2 [facility] mg/dl Specimen Anatomical Collection Method Collection Time Receive d Time (Source) Location / / Volume Laterality 07/27/2016 8:53 AM 7 8:56 CDT AM CDT Narrative [facility] - 07/27/2016 1:15 PM C DT Performed at [facility], [address] [place] [address] ??[phone] Prateek Britton MD LAB_1 Performing Organization Address City/[facility] Phon e Number [facility] [phone] documented in this encounter Visit Diagnoses Diagnosis Gout, unspecified cause, unspecified chr onicity, unspecified site - Primary Gout, unspecified cause, unspecified chr onicity, unspecified site Gout, unspecified cause, unspecified chr onicity, unspecified site Gout, unspecified cause, unspecified chr onicity, unspecified site Gout, unspecified cause, unspecified chr onicity, unspecified site documented in this encounter Care Teams Matrix Drier Tender Relationship Specialty Start Date End Date Kristine Brown MD PCP - General Family Practice 03/25/13 [address] [place] [address] documented as of this encounter
--- OUTSIDE RECORDS SUMMARY | 2022-02-11 08:56 | XMS_ITS | Encounter Summary ---
:1945 Author Organization [employer] Address [address] [place] [address] Care Team Providers Name Role Phone Unassigned, Provider Primary Care Provider Unavailable Reason for Visit Reason Comments SKIN LESION Consult/Transfer Care (Routine) - Closed Specialty Diagnoses / Procedures Referred By Contact [place] [address] [place], [place] [address] Referral ID Status Reason Start Date Expiration Date Visits Requ ested Visits Authorized [id number] Closed 01/18/2012 1 1 Encounter Details Date Type Department Care Team Description 01/20/2012 Office Visit Specialty Center Lucia Quinonez KSchuyler n lesion (Primary [facility] PA-C Dx) [address] [place] [address] [address] [place], [place] [id number] Social History Tobacco Use Types Packs/Day Years Used Date Smoking Tobacco: Former Cigarettes 1 9 Quit : 04/24/1971 Alcohol Use Standard Drinks/Week Comments Not Asked 0 (1 standard drink = 0.6 oz pure alcoho l) Sex Assigned at Date Recorded Not on file documented as of this encounter Last Filed Vital Signs Vital Sign Reading Time Taken Comments Blood Pressure 125/83 01/20/2012 2:04 PM CDT Pulse 85 01/20/2012 2:04 PM CDT Temperature 37.1 ??C (98.7 ??F) 01/20/2012 2:04 PM CDT Respiratory Rate - - Oxygen Saturation - - Inhaled Oxygen Concentration - - Weight 102 kg (224 lb 12.8 oz) 01/20/2012 2:04 PM CDT Height 182.9 cm (6') 01/20/2012 2:04 PM CDT Body Mass Index 30.49 01/20/2012 2:04 PM CDT documented in this encounter Patient Instructions Patient InstructionsEstefania Ralph LPN - 01/20/2012 2:26 PM CDT CARE OF STITCHES 1. Keep wound dry and clean. You may shower 24 hours afterward unless instructed otherwise. Do not soak wound until the stitches are removed. 2. If the wound is bandaged, change the dressing every 24 hours. Clean the wound with soap and waterand pat dry with clean towel. Apply a thin layer of Bacitracin or Neosporin for the first 3-4 days. 3. Apply a clean bandage. 4. Have stitches removed in 7-10 days. 5. Call your clinic immediately if signs of infection appear such as: ?? Drainage from wound ?? Redness around wound or red streaks ?? Increasing soreness of area around wound ?? Fever 6. It is ok to take acetaminophen (Tylenol) or ibuprofen (Advil, Motrin) for mild pain or discomfort. Do not take aspirin for 2-3 days due to increased bleeding risk. 7. You only need to cover the wound with a bandage as long as the wound is still draining or if the wound may get dirty. The incision does heal faster when open to air. documented in this encounter Progress Notes Lucia Quinonez - 01/20/2012 3:11 PM CDT SUBJECTIVE This is a 66 yr male who I have been asked to see in consultation concerning excision of an atypical looking lesion on the back. This lesion was biopsied several years ago and shown to be benign but the lesion has come back and for the past few months has been chronically open/bleeding/ andscabbing. It is also getting larger. It's not too bothersome for him but his is very concerned about how suspicious it looks. I agree this looks very suspicious for a BCC, will go ahead and removethe entire lesion. PROCEDURE Excision of skin lesion from back Potential risks including but not limited to postoperative infection, scarring and recurrence have all been explained. The patient verbally indicates understanding of the procedure and risks involved and wishes to proceed with the procedure. TECHNIQUE: Using sterile technique with Hibiclens prep and 1% Xylocaine with epinephrine for local anesthetic, the back skin lesion was excised. The specimen was sent to Pathology. The maximum diameterof the excisional biopsy was 3 cm. The 5 cm wound was closed in layers, deep subcutaneous tissue, with 3-0 vicryl and top layer with 4-0 prolene. Return in 7-10 day(s) for suture removal and pathology report . Lucia Quinonez PA-C documented in this encounter Nursing Notes 01/20/2012 2:00 PM CDT >> Estefania Ralph LPN MonJan 20, 2012 2:32 PM PROCEDURE VERIFICATION: Patient Identification: Verified medical record number and Date of : yes Verified that this is the correct patient that is scheduled for the correct procedure: yes Verified medical record has the correct patient name and medical record number: yes Site Verification: Verified the site for the procedure with the patient and/or against the medical record: yes Instrument Verification: Instrument sterility and package integrity verified. yes Estefania Ralph LPN 01/20/2012 2:26 PM documented in this encounter Plan of Treatment Upcoming Encounters Date Type Specialty Care Team Description 02/14/2022 Appointment General Dentistry Bailey Castrejon, [facility] [address] [place] [address] (Wo rk) documented as of this encounter Procedures Procedure Name Priority Date/Time Associated Diagnosis Comme [facility] SURGICAL PATH Routine 01/20/2012 7:00 AM Skin lesion Results for this CDT procedure are i n the results section . documented in this encounter Results SURGICAL PATH (01/20/2012 7:00 AM CDT) [facility] Method Time Signature 9911 (NOTE) [facility] Surgical Final Report Patient Name: ARMEN IQBAL Taken: 01/20/2012 Received: 01/20/2012 Reported: 2012 Physician(s): Lucia Quinonez ? Final Pathologic Diagnosis Skin, mid upper back, excision -- ?1. ??Basal cell carcinoma, nodular type with fibrosis, ulcerated ?2. ??All resection margins are negative for carcinoma sbk/01/24/2012 Electronically Signed Out By ? Delia Romero MD ([id number]) Procedures/Addenda Clinical History Mid-upper back skin lesion Gross Description The specimen is received in formalin and labeled with the pa tient's name. ??The specimen consists of a 4.1 x 2.0 cm burdick-brown sk in ellipse excised to a depth of 0.6 cm. ??There is a 1.2 x 1.2 cm glover -burdick focally hemorrhagic focally crusted lesion on the skin surfa ce that comes within 0.2 cm of the resection margin. ??The specimen is inked black, serially sectioned and entirely submitted in seven ca ssettes. ?? Cassette Bach: ?? 1. ??Ellipse tips 2-7. ??Serial sections of remaining specimen. ??cl cll/01/23/2012 Microscopic Description Microscopic examination is performed on seven slides. ?? sbk/01/24/2012 Delia Romero MD ([id number]) [facility] Department of Pathology [address] [place] [address] ??[id number] Specimen Anatomical Collection Method Collection Time Receive d Time (Source) Location / / Volume Laterality EXCISION OF SKIN / 01/20/2012 7:00 AM 7:24 Unknown CDT PM CDT Lucia Quinonez PA-C LAB_1 Performing Organization Address City/State/ZIP Code Phon e Number [facility] [phone] [address] documented in this encounter Visit Diagnoses Diagnosis Skin lesion - Primary Unspecified disorder of skin and subcuta neous tissue documented in this encounter Care Teams Chemical Processing Equipment Repairer Relationship Specialty Start Date End Date Unassigned, Provider PCP - General 01/26/00 03/24/[address] [place] [address] documented as of this encounter
--- OUTSIDE RECORDS SUMMARY | 2022-02-11 08:56 | XMS_ITS | Encounter Summary ---
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
--- OUTSIDE RECORDS SUMMARY | 2022-02-11 08:56 | XMS_ITS | Encounter Summary ---
:1945 [facility] Address [address] [place] [address] Care Team Providers Name Role Phone Unassigned, Provider Primary Care Provider Unavailable Reason for Visit Reason Comments EYE EXAM,YEARLY BRENNAN 1.5 years ago. [facility]. Pt states he has not been happy with the glasses RX from [facility] and has been wearing an older pair of PAL glasses. No pain or redness. Encounter Details Date Type Department Care Team Description 11/09/2011 Office Visit [facility] Shay Burt, SOTO Examination of eyes and vision (Primary Dx); [address] [facility]. [address] COUNTS INCLUDE [address] [facility]S [address] [facility] [address] [facility] [place], [place] [address] [place], [place] [phone] [address] Social History Tobacco Use Types Packs/Day Years Used Date Smoking Tobacco: Never Assessed Sex Assigned at Date Recorded Not on file documented as of this encounter Patient Instructions Patient InstructionsShay Burt, OD - 11/09/2011 10:22 AM CDT Thank you for choosing [facility] for your eye care needs. Many tests [...] the clinic in the future? Appointment Center: [phone] Eye Dept: [phone] Online Services: [email or web address] For after hours care, call the CareLine at [phone] or . We look forward to taking care of your eye care needs in the years to come. documented in this encounter Progress Notes Shay Burt, SOTO - 11/09/2011 10:22 AM CDT HPI Chief Complaint Patient presents with ??? EYE EXAM,YEARLY BRENNAN 1.5 years ago. [facility]. Pt states he has not been happy with the glasses RX from [facility] and has been wearing an older pair of PAL glasses. No pain or redness. History Reviewed Assessment Encounter Diagnoses Name Primary? Examination of eyes and vision Yes ??? Presbyopia Patient states his right eye has always seen better than left eye, which causes a problem shooting because he uses his left eye for that. Mild amblyopia OS Plan Spectacle Prescription given Return to clinic in 1 year(s) for routine eye exam.. Shay Burt OD documented in this encounter Plan of Treatment Upcoming Encounters Date Type Specialty Care Team Description 02/14/2022 Appointment General Dentistry Bailey Castrejon, [facility] [address] [place] [address] (Wo rk) documented as of this encounter Visit Diagnoses Diagnosis Examination of eyes and vision - Primary Presbyopia documented in this encounter Care Teams Respiratory Care Program Director Relationship Specialty Start Date End Date Unassigned, Provider PCP - General 01/26/00 03/24/[address] [address] documented as of this encounter
--- OUTSIDE RECORDS SUMMARY | 2022-02-11 08:56 | XMS_ITS | Encounter Summary ---
:1945 Author Organization [employer] Address [address] [place] [address] Care Team Providers Name Role Phone Unassigned, Provider Primary Care Provider Unavailable Reason for Visit Reason Comments PE Encounter Details Date Type Department Care Team Description 10/15/2012 Office Visit [facility] Kristine Brown MD Preventative health care (Primary Dx); Practice [id number] [place] [address] Hypertension; [address] [place], [place] Screening; [place] [address] Foot pain [id number] [phone] Social History Tobacco Use Types Packs/Day Years Used Date Smoking Tobacco: Former Cigarettes 1 9 Quit : 04/24/1971 Smokeless Tobacco: Never Alcohol Use Standard Drinks/Week Comments Yes 4.2 (1 standard drink = 0.6 oz pure alco hol) Sex Assigned at Date Recorded Not on file documented as of this encounter Last Filed Vital Signs Vital Sign Reading Time Taken Comments Blood Pressure 112/69 10/15/2012 10:07 AM CDT Pulse 91 10/15/2012 10:07 AM CDT Temperature 36.4 ??C (97.6 ??F) 10/15/2012 10:07 AM CDT Respiratory Rate 16 10/15/2012 10:07 AM CDT Oxygen Saturation - - Inhaled Oxygen Concentration - - Weight 101.6 kg (224 lb) 10/15/2012 10:07 AM CDT Height 181 cm (5' 11.25) 10/15/2012 10:07 AM CDT Body Mass Index 31.02 10/15/2012 10:07 AM CDT documented in this encounter Progress Notes Kristine Brown MD - 10/15/2012 10:43 AM CDT Chief Complaint Patient presents with ??? PE Last seen at [facility] for RHM, last exam about one year ago. He is also seen Q 3 years at [place] for agent orange screening/exam, will be due back this winter. S Armen Crump is a 67 yr old male in for routine health maintenance. Current concerns: 1. HTN: taking lisinopril regularly, he will only take HCTZ- triamterene about 1/2 tab PO twice weekly as this will cause him to feel less energetic. Denies other symptoms. He will check his BP's on the days he does not take the HCTZ- triamterene and his SBP will run in high 130's-not sure about the lower number. He's been taking these medications for the last 3 years-thinks he was started on maxzideafter his BP's were still high on the bnyxaigczt-KIBO-ugmlbx history of low potassium. 2. HM: never had a colonoscopy; not interested in colonoscopy or FIT testing. He thinks the last time he had PSA screening was 3 years ago-states that he has 'all his BW done when he's at the [place]. 3. H/o agent orange exposure: has screening Q 3 years-he is due to have this done again this winter. 4. H/o basal cell carcinoma: due back to see dermatology in 11/03 for h/o basal cell Ca. 5 h/o b/l heel discomfort: intermittent symptoms x past several years-will have some soreness in b/lheels and MTP region-denies redness/swelling/warmth/skin changes. 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 Hestates he's had BW for gout, XR to look for bony changes-not sure how long ago this was done. No current symptoms-last episode of discomfort was about one month ago- symptoms will last about 2-3 days atat time. Present dietary habits: three meals a day and adequate fruit and vegetables Present exercise habits: minimal exercise History Smoking status ??? Former Smoker -- 1.00 packs/day for 9 years ??? Quit date: 04/24/1971 Smokeless tobacco ??? Not on file History Alcohol Use: Not on file Sexual activity: heterosexual. I have reviewed the medical, surgical, family and social histories. I have reviewed the current medication list. Cardiovascular risk factors: 1 - Hypertension, even if controlled and 1 - Age >45 for Male, >55 for Female Over the past few weeks, have you felt down or depressed? no Do you need assistance with any activities of daily living? no Is your home equipped with appropriate safety features such as smoke alarms, hand rails, adequate lighting? yes Review of systems include CONSTITUTIONAL: Negative EYES: no visual blurring, no double vision, no glaucoma, no cataracts, no eye pain, no color blindness ENT: no abnormally frequent URIs, no decrease in hearing, no persistently sore throat, no tinnitus, no vertigo RESPIRATORY: no shortness of breath, no cough, no sputum CARDIOVASCULAR: no palpitations, no tachycardia, no irregular heart beats, no chest pain, no exertional chest pain or pressure GASTROINTESTINAL: normal appetite, no dysphagia, no nausea, no abdominal pain, no melena GENITOURINARY: no dysuria, no frequency, no hematuria MUSCULOSKELETAL: no weakness, no nocturnal cramping, no muscle pains, some b/l heel/toe pain SKIN: no rash, no itch, no scaling, no hair changes, no nail changes NEUROLOGIC: no headaches, no numbness or tingling of hands, no numbness or tingling of feet, no syncope PSYCHIATRIC: no sleep disturbances, no anxiety, no depression HEMATOLOGIC/LYMPHATIC/IMMUNOLOGIC: no fevers, no night sweats, no chills, no weight loss ENDOCRINE: no cold intolerance, no heat intolerance, no polydypsia, no polyphagia O BP 112/69 Pulse 91 Temp(Src) 97.6 ??F (36.4 ??C) (Tympanic) Resp 16 Ht 5' 11.25 (1.81 m) Wt 224 lb (101.606 kg) BMI 31.01 kg/m2 Estimated body mass index is 31.01 kg/(m^2) as calculated from the following: Height as of this encounter: 5' 11.25 (1.81 m). Weight as of this encounter: 224 lb (101.606 kg). General: He appears well, alert and oriented x 3, pleasant and cooperative. ENT: normal Neck: supple and free of adenopathy,or masses. No thyromegaly or carotid bruits. EYES: PERRL no conjunctival injection b/l. Nose: WNL Mouth:MMM, no lesions. Chest: clear to IPPA. Heart: sounds are normal, no murmurs. Abdomen: +BS's, soft, no tenderness, no distention, no masses or organomegaly. Extremities: peripheral pulses and reflexes are normal. Rectal: declined Screening neurological exam is normal without focal findings. Skin: normal without suspicious lesions. Foot/ankle exam: normal exam, no swelling,+ tenderness b/l plantar surfaces, no instability; ligaments intact, FROM all ankle/foot joints; +dorsalis pedis pulses b/l. A Preventive Evaluation and Exam. HTN H/o basal cell carcinoma H/o foot pain P See today's orders for details Patient counseled regarding: limiting dietary fat five a day fruits and veg increasing physical activity Patient counseled regarding future preventative services needs. BP looks good today; due to some fatigue when taking both medications, we'll have him d/c triamterene-HCTZ and start lisinopril-HCTZ 20-25mg tabs PO Qdaily, SERD. RTC in 2 weeks for fasting labs including Na,K, Cr and also NV for BP re- check. Warning signs given. Symptoms sound most c/w DJD; patient will sign RICO and have outside records forwarded. Advised that podiatry order can be placed due to chronicity of symptoms; patient feels comfortable monitoring his symptoms for now and with RTC PRN sx's worsen/new sx's develop. Warning signs given.Kristine Brown MD 10/17/2012, 2:51 PM documented in this encounter Plan of Treatment Upcoming Encounters Date Type Specialty Care Team Description 02/14/2022 Appointment General Dentistry Bailey Castrejon, [facility] [address] [place] [address] (Wo rk) documented as of this encounter Results LIPID PANEL AND DIRECT LDL(IF NEEDED) (11/19/2012 8:47 AM CDT) [facility] Method Time Signature Hours Fasting 18 hours [...] 11/19/2012 5:30 PM C DT Performed at [facility], [address] [place] [address] ??[id number] Kristine Brown MD LAB_1 Performing Organization Address City/[facility] Phon e Number [facility] [phone] (ABNORMAL) CREATININE / GFR (11/19/2012 8:47 AM CDT) [facility] Method Time Signature Creatinine 1.23 0.66 - [...] 11/19/2012 5:30 PM C DT Performed at [facility], [address] [place] [address] ??[id number] Kristine Brown MD LAB_1 Performing Organization Address City/[facility] Phon e Number [facility] [phone] GLUCOSE - FASTING > 8 HRS FASTING (V77.1) (11/19/2012 8:47 AM CDT) P athologist Signature Hours Fasting 18 hours [facility] Glucose 100 70 - 100 [facility] mg/dl [facility] Specimen Anatomical Collection Method Collection Time Receive d Time (Source) Location / / Volume Laterality 11/19/2012 8:47 AM 3 8:51 CDT AM CDT Narrative [facility] - 11/19/2012 5:30 PM C DT Performed at [facility], [address] [place] [address] ??[id number] Kristine Brown MD LAB_1 Performing Organization Address City/[facility] Code Phon e Number [facility] [phone] POTASSIUM (11/19/2012 8:47 AM CDT) athologist Signature Potassium 4.3 3.5 - 5.3 [facility] mmol/L Specimen Anatomical Collection Method Collection Time Receive d Time (Source) Location / / Volume Laterality 11/19/2012 8:47 AM 3 8:51 CDT AM CDT Narrative [facility] - 11/19/2012 5:30 PM C DT Performed at [facility], [address] [place] [address] ??[phone] Kristine Brown MD LAB_1 Performing Organization Address [facility] Phon e Number [facility] [phone] SODIUM (11/19/2012 8:47 AM CDT) athologist Signature Sodium 138 135 - 145 [facility] mmol/L Specimen Anatomical Collection Method Collection Time Receive d Time (Source) Location / / Volume Laterality 11/19/2012 8:47 AM 3 8:51 CDT AM CDT Narrative [facility] - 11/19/2012 5:30 PM C DT Performed at [facility], [address] [place] [address] ??[id number] Kristine Brown MD LAB_1 Performing Organization Address City/[facility]/ZIP Code Phon e Number [facility] [phone] MICROALB/CREAT RATIO (10/15/2012 10:53 AM CDT) [facility] gist Method Time Signature Albumin, <0.5 mg/dl [...] 10/15/2012 4:09 PM C DT Performed at [facility], [address] [place] [address] ??[id number] Kristine Brown MD LAB_1 Performing Organization Address City/[facility] Phon e Number [facility] [phone] BASIC METABOLIC PANEL (10/15/2012 10:53 AM CDT) [...] 10/15/2012 4:52 PM C DT Performed at [facility], [address] [place] [address] ??[id number] Kristine Brown MD LAB_1 Performing Organization Address City/[facility] Phon e Number [facility] [phone] documented in this encounter Visit Diagnoses Diagnosis Preventative health care - Primary Routine general medical examination at a health care facility Hypertension ([facility]) Unspecified essential hypertension Screening Screening for unspecified condition Foot pain Pain in limb Hypertension ([facility]) Unspecified essential hypertension Screening Screening for unspecified condition Hypertension ([facility]) Unspecified essential hypertension documented in this encounter Care Teams Support Merchandiser Relationship Specialty Start Date End Date Unassigned, Provider PCP - General 01/26/00 03/24/[address] [place] [address] documented as of this encounter
--- OUTSIDE RECORDS SUMMARY | 2022-02-11 08:56 | XMS_ITS | Encounter Summary ---
:1945 Author Organization Department [facility] Address [address] [place] [address] Support Name Relationship Address Phone JB IQBAL Unavailable [address] [place] [address] [phone] [place] [address] JB IQBAL Unavailable [address] [place] [address] [phone] [place] [address] CORBIN, BARBARA Unavailable [id number] [employer] [address] [place], [place] Insurance Providers: All historical and current Section Date Range: From patient's date of to the date document was created.This section includes the names of all active insurance providers for the patient. Insurance Type of Plan Start of End of Group Member Insurance Policy P atient's Provider Coverage Name Policy Policy Number ID Provider's Cruz's Relationship Coverage Coverage Telephone Name to Policy Number Cruz HEALTH MEDICARE MCR Apr 24 [id number] RAVI IQBAL PARTNERS [facility] (WN) 2014 3 [phone] [facility] HEALTH MEDICARE MCR Apr 24, 75 [id number] RAVI IQBAL [facility] IENT PARTNERS [facility]) 2014 3 [phone] [facility] (R) Selected Encounter This section includes the information on record at [place] for the Encounter. Date/Time Encounter Type Encounter Description Reason Provider Source May 27, 2021 12:10 Outpatient Encounter PRIMARY CARE/MEDICINE PM IHE Encounter Template Text not used by [place] Plan of Treatment: Future Appointments (+ 6 months) and Future Tests (+/- 45 days) The Plan of Treatment section includes future care activities for the patient from all [place] treatmentfacilities. This section includes future appointments and future orders which are active, pending orscheduled.Active, Pending, and Scheduled Orders This section includes a listing of several types of active, pending, and scheduled orders, including clinic medications orders, diagnostic test orders, procedure orders and consult orders; where the start date of the order is 45 days before the date of the Encounter or 45 days after the date of the Encounter. The data comes from all [place] treatment facilities. Test Date/Time Test Type Test Details Facility Name May 20, 2021 12:00 AM Laboratory - Chemistry PSA SERUM SP ONCE M [facility] Order Social History: Smoking Status (Most current) and Tobacco Use (All prior to encounter date) This section includes the most current, and the historical, smoking and tobacco-related health factors from the [place] facility where the Encounter took place.Current Smoking Status This section includes the most current smoking, or tobacco-related health factor, from the [place] facility where the Encounter took place. Date/Time Current Smoking Status Comment Facility Mar 20, 2019 02:50 PM [place]-TOBACCO QUIT 15 YRS OR MORE [facility] Tobacco Use History This section includes a history of the smoking, or tobacco- related health factors, that were collected on or before the date of the Encounter. The data comes from the [facility] where the Encounter took place. Date/Time Smoking Status/Tobacco Use Comment [facility] Mar 20, 2019 02:50 PM [place]-TO[place]AC[place] QUIT 15 YRS OR MORE [facility] Jan 17, 2018 03:17 PM VA-TOBACCO FORMER USER [facility] Jan 17, 2018 03:17 PM VA-TOBACCO QUIT 15 YRS OR MORE [facility] Jan 26, 2017 01:41 PM LIFETIME NON-TOBACCO USER [facility] Dec 09, 2015 08:24 AM FORMER TOBACCO USER 7Y OR GREATER [facility] Apr 19, 2010 08:36 AM FORMER TOBACCO USER 7Y OR GREATER [facility] Encounter Notes: All associated encounter notes This section contains the clinical notes associated to the Encounter. Date/Time Encounter Note(s) Provider Source May 27, 2021 12:10 PM REPORT OF CONTACT: YUMI OSUNA [facility] LOCAL TITLE: APPOINTMENT SCHEDULING NOTE STANDARD TITLE: REPORT OF CONTACT DATE OF NOTE: MAY 27, 2021@12:10 ENTRY DATE: MAY 27, 2021@12:10:08 AUTHOR: YUMI OSUNA EXP COSIGNER: URGENCY: STATUS: COMPLETED Recall (PtCSch) contact efforts No response to scheduling efforts Contact: Called [employer] at phone: 05/27/21 Left message on voice mail. Phone number left for to call back: [phone] If [employer] calls back, schedule appointment for : left pt a message and landon d pt a letter to call the va to schedule his recall with dr peralta. [id number] pact/4e charissa +12m non fasting [id number] recall will be deleted on 06/10/21 thank you Provider: please review veterans chart and medi cations for renewal needs (if appropriate). The recall request has been deleted. /jose/ YUMI OSUNA LEAD ASSOCIATE SALES REPRESENTATIVE Signed: 05/27/2021 12:11
--- OUTSIDE RECORDS SUMMARY | 2022-02-11 08:56 | XMS_ITS | Encounter Summary ---
:1945 Author Organization [facility] Address [address] [place] [address] Support Name Relationship Address Phone JB IQBAL Unavailable [address] [place] [address] [phone] [place] [address] JB IQBAL Unavailable [address] [place] [address] [phone] [place] [address] EMERALD BARBARA Unavailable [phone] [employer] [address] [place], [place] Insurance Providers: All historical and current [...] Number Cruz HEALTH MEDICARE MCR Apr 24 [id number] RAVI IQBAL IENT [employer]NERS [facility] (WNR) 2014 3 [phone] [facility] (WN) HEALTH MEDICARE MCR Apr 24, 75 [id number] RAVI IQBAL IENT [employer]ERS [facility] (WNR) 2014 3 [phone] [facility] (R) Selected Encounter This section includes the information on record at [place] for the Encounter. Date/Time Encounter Type Encounter Description Reason Provider Source Jan 03, 2022 09:41 Outpatient Encounter GASTROENTEROLOGY AM IHE Encounter Template Text not used by [place] Plan of Treatment: Future Appointments (+ 6 months) and Future Tests (+/- 45 days) The Plan of Treatment section includes future care activities for the patient from all [place] treatmentfacilities. This section includes future appointments and future orders which are active, pending orscheduled.Future Appointments This section includes appointments that were scheduled to occur 6 months from the date of the Encounter, up to a maximum of 20 appointments. The data comes from all [facility]. Appointment Date/Time Appointment Type Appointment Facili ty Name Jan 11, 2022 01:15 PM AMBULATORY - NONE [facility] Jan 11, 2022 02:30 PM AMBULATORY - MEDICINE [facility] CS Active, Pending, and Scheduled Orders This section includes a listing of several types of active, pending, and scheduled orders, including clinic medications orders, diagnostic test orders, procedure orders and consult orders; where the start date of the order is 45 days before the date of the Encounter or 45 days after the date of the Encounter. The data comes from all [facility]. Test Date/Time Test Type Test Details Facility Name Jan 20, 2022 06:03 AM Consult Order [facility] C ons [facility] Unit Clerk's Choice Lab Results: +/- 30 days of the encounter This section includes the Chemistry and Hematology Lab Results on record with [place] for the patient. Radiology Reports and Pathology Reports are provided separately, in subsequent sections.Lab Results This section contains the Chemistry/Hematology Results that were resulted 30 days before or 30 daysafter the date of the Encounter. Date/Time Source Result Type Result - Unit Interpretation Reference Range Comment Jan 11, 2022 12:55 PM [facility] ALT/SGPT Specim en Type: PLASMA No comment enter ed. Ordering Provid er: ADAM MORAN Report Released Date/Time: May 29, 2020 05:02 AM Reporting Lab: [facility] [address] [facility] [address] Performing Lab: [facility] [address] [facility] [address] ALT/SGPT 22 <55 Jan 11, 2022 [facility] CREATININE(INCLUDES EGFR) Sp ecimen Type: PLASMA 12:55 PM No comment enter ed. Ordering Provid er: ADAM MORAN Report Released Date/Time: May 29, 2020 05:02 AM Reporting Lab: [facility] [address] [facility] [address] Performing Lab: [facility] [address] [facility] [address] CREATININE 1.0 0.7-1.2 CREAT EGFR(CKD-EPI) 79 >60 Jan 11, 2022 12:55 PM [facility] CBC Specim en Type: BLOOD No comment enter ed. Ordering Provid er: ADAM MORAN Report Released Date/Time: May 29, 2020 05:02 AM Reporting Lab: [facility] [address] Performing Lab: [facility] [address] WBC 5.01 4.0-11.0 RBC 6.38 H 4.6-6.2 HGB 19.1 H 13.5-17.9 HCT 56.0 H 41-54 MCV 87.8 80-100 MCH 29.9 27-33 MCHC 34.1 32.0-37.5 PLT 202 150-400 MPV 8.9 7.4-10.4 RDW 14.4 11.5-14.5 Jan 11, 2022 [facility] LIPID PANEL,NON-FASTING Spec imen Type: PLASMA 12:55 PM No comment enter ed. Ordering Provid er: ADAM MORAN Report Released Date/Time: May 29, 2020 05:02 AM Reporting Lab: [facility] [address] Performing Lab: [facility] [address] CHOLESTEROL 168 <199 .HDL 39 L >40 LDL CALCULATION 98 <99 VLDL CALCULATION 31 H <29 NON HDL CHOLESTEROL 129 <129 TRIG(NON FASTING) 157 H <149 Jan 11, 2022 12:55 [facility] ELECTROLYTES/ANION GAP Sp ecimen Type: PLASMA PM No comment enter ed. Ordering Provid er: ADAM MORAN Report Released Date/Time: May 29, 2020 05:02 AM Reporting Lab: [facility] [address] Performing Lab: [facility] [address] SODIUM 140 136-145 POTASSIUM 4.3 3.5-5.1 CHLORIDE 109 H 98-107 CO2 22 22-29 ANION GAP 9 5-15 Jan 11, 2022 12:55 PM [facility] GLUCOSE Specim en Type: PLASMA No comment enter ed. Ordering Provid er: ADAM MORAN Report Released Date/Time: May 29, 2020 05:02 AM Reporting Lab: [facility] [address] Performing Lab: [facility] [address] GLUCOSE 101 H 70-100 Jan 11, 2022 [facility] HEMOGLOBIN A1C Specimen Typ e: BLOOD 12:55 PM Comment: Values obtained from A1C measurements can vary. For typical A1C assays, a reported value of 7.0 could actually be between 6.7 and 7.3 if measured by a reference method. A reported value of 9.0 could actually be between 8.7 and 9.3. Ref: http://www.ngsp.org/CAPdata.asp Ordering Provid er: ADAM MORAN Report Released Date/Time: May 29, 2020 05:02 AM Reporting Lab: [facility] [address] [facility] [address] Performing Lab: [facility] [address] HEMOGLOBIN A1C 5.8 4.0-6.0 Jan 11, 2022 12:55 PM [facility] PSA Specim en Type: SERUM No comment enter ed. Ordering Provid er: ADAM MORAN Report Released Date/Time: May 29, 2020 05:02 AM Reporting Lab: [facility] [address] [facility] [address] Performing Lab: [facility] [address] [facility] [address] PSA 6.43 H <4.00 Jan 11, 2022 12:55 PM [facility] AST/SGOT Specim en Type: PLASMA No comment enter ed. Ordering Provid er: ADAM MORAN Report Released Date/Time: May 29, 2020 05:02 AM Reporting Lab: [facility] [address] [facility] [address] Performing Lab: [facility] [address] [facility] [address] AST/SGOT 17 <34 Jan 11, 2022 12:55 [facility] TSH W/REFLEX TO FREE Spec imen Type: PLASMA PM T4 No comment enter ed. Ordering Provid er: ADAM MORAN Report Released Date/Time: May 29, 2020 05:02 AM Reporting Lab: [facility] [address] [facility] [address] Performing Lab: [facility] [address] [facility] [address] TSH 2.28 0.35-4.94 Jan 03, 2022 09:31 [facility] .OCCULT BLOOD(FIT) Specim en Type: FECES AM No comment enter ed. Ordering Provid er: RELL ISBELL Report Released Date/Time: Jan 03, 2022 09:31 AM Reporting Lab: [facility] [address] [facility] [address] Performing Lab: [facility] [address] [facility] [place] [address] .OCCULT BLOOD(FIT) Negative Social History: Smoking Status (Most current) and Tobacco Use (All prior to encounter date) This section includes the most current, and the historical, smoking and tobacco-related health factors from the [facility] where the Encounter took place.Current Smoking Status This section includes the most current smoking, or tobacco-related health factor, from the [facility] where the Encounter took place. Date/Time Current Smoking Status Comment Facility Mar 20, 2019 02:50 PM [place]-TOBACCO QUIT 15 YRS OR MORE [facility] Tobacco Use History This section includes a history of the smoking, or tobacco- related health factors, that were collected on or before the date of the Encounter. The data comes from the [facility] where the Encounter took place. Date/Time Smoking Status/Tobacco Use Comment [facility] it Mar 20, 2019 02:50 PM [place]-TOBACCO QUIT 15 YRS OR MORE [facility] Jan 17, 2018 03:17 PM VA-TOBACCO FORMER USER [facility] Jan 17, 2018 03:17 PM VA-TOBACCO QUIT 15 YRS OR MORE [facility] Jan 26, 2017 01:41 PM LIFETIME NON-TOBACCO USER [facility] Dec 09, 2015 08:24 AM FORMER TOBACCO USER 7Y OR GREATER [facility] Apr 19, 2010 08:36 AM FORMER TOBACCO USER 7Y OR GREATER [facility] Encounter Notes: All associated encounter notes This section contains the clinical notes associated to the Encounter. Date/Time Encounter Note(s) Provider Source Jan 03, 2022 09:41 AM RESEARCH NOTE: ALICIA CAMPBELL [facility] LOCAL TITLE: RESEARCH PROGRESS NOTE STANDARD TITLE: RESEARCH NOTE DATE OF NOTE: JAN 03, 2022@09:41 ENTRY DATE: JAN 03, 2022@09:41:22 AUTHOR: ALICIA CAMPBELL EXP COSIGNER: URGENCY: STATUS: COMPLETED The patient's FIT kit came back NEGATIVE for occ ult blood in stool. This indicates no further need for colorectal cancer screening for 1 year. The patient will be notified of the negative result via a letter from the CONFIRM study. In one year the patient will receive anot her FIT kit from the CONFIRM study. /jose/ ALICIA CAMPBELL BA, RN REGISTERED NURSE Signed: 01/03/2022 09:41
--- OUTSIDE RECORDS SUMMARY | 2022-02-11 08:56 | XMS_ITS | Encounter Summary ---
:1945 [facility] Address [address] [place] [address] Care Team Providers Name Role Phone Unassigned, Provider Primary Care Provider Unavailable Reason for Referral Consult/Transfer Care (Routine) - Closed Specialty Diagnoses / Procedures Referred By Contact Refer red To Contact Lucia Quinonez PA -C [address] [facility] [address] [place] [address] Referral ID Status Reason Start Date Expiration Date Visits Requ ested Visits Authorized [id number] Closed 2012 1 1 Scheduling Instructions Your provider has recommended an appoint ment with [facility]. You may call [phone] to schedule your appoi ntment. If you prefer, a instrument lens grinder will contact you within the next 3 business d ays to assist you in setting up this appointment. Reason for Visit Reason Onset Date Comments RESULTS, TEST 2012 Encounter Details Date Type Department Care Team Description 2012 Telephone Specialty [facility] 401 Lucia Quinonez PA-C RESULTS, TEST Surgery Clinic [address] [facility] [address] [place] [address] [place] [address] [phone] (Wo rk) Social History Tobacco Use Types Packs/Day Years Used Date Smoking Tobacco: Former Cigarettes 1 9 Quit : 04/24/1971 Alcohol Use Standard Drinks/Week Comments Not Asked 0 (1 standard drink = 0.6 oz pure alcoho l) Sex Assigned at Date Recorded Not on file documented as of this encounter Nursing Notes Lucia Quinonez - 2012 1:17 PM CDT Spoke with Armen about path showing BCC though with neg margins. He's healing great and very grateful. I did encourage him to get full body skin check with [employer]. He will call and schedule and i'll put the orders in. Lucia Quinonez PA-C documented in this encounter Plan of Treatment Upcoming Encounters Date Type Specialty Care Team Description 02/14/2022 Appointment General Dentistry Bailey Castrejon, [facility] [address] [place] [address] (Wo rk) Scheduled Referrals Name Type Priority Associated Diagnoses Order S [facility] DERMATOLOGY Referral Routine Ordered: 2011 CONSULT-ADULT/PEDS documented as of this encounter Visit Diagnoses Not on filedocumented in this encounter Care Teams Section Hand Relationship Specialty Start Date End Date Unassigned, Provider PCP - General 01/26/00 03/24/[address] [place] [id number] documented as of this encounter
--- OUTSIDE RECORDS SUMMARY | 2022-02-11 08:56 | XMS_ITS | Encounter Summary ---
:1945 Author Organization Department of [facility] rs Address [address] [place] [address] Support Name Relationship Address Phone JB IQBAL Unavailable [address] [place] [address] [phone] [place] [phone] JB IQBAL Unavailable [phone] [place] [address] [phone] [place] [phone] EMERALD BARBARA Unavailable [phone] [place], [place] Insurance Providers: All historical and current [...] Number [place] HEALTH MEDICARE MCR Apr 24 [id number] [employer]AVI [employer] [facility] (WN) 2014 3 [phone] [facility] (WN) HEALTH MEDICARE MCR Apr 24, 75 [id number] [employer] [facility] (R) 2014 3 [phone] [facility] (R) Selected Encounter This section includes the information on record at [place] for the Encounter. Date/Time Encounter Type Encounter Reason Provider Source Description Jan 10, 2022 08:39 Outpatient TELEPHONE TRIAGE ROMY MORAN E AM Encounter I[facility] Encounter Template Text not used by [place] Plan of Treatment: Future Appointments (+ 6 months) and Future Tests (+/- 45 days) The Plan of Treatment section includes future care activities for the patient from all [facility]. This section includes future appointments and future orders which are active, pending orscheduled.Future Appointments This section includes appointments that were scheduled to occur 6 months from the date of the Encounter, up to a maximum of 20 appointments. The data comes from all [facility]. Appointment Date/Time Appointment Type Appointment Facili ty Name Jan 11, 2022 01:15 PM AMBULATORY - NONE [facility] Jan 11, 2022 02:30 PM AMBULATORY - MEDICINE [facility] CS Active, Pending, and Scheduled Orders This section includes a listing of several types of active, pending, and scheduled orders, including clinic medications orders, diagnostic test orders, procedure orders and consult orders; where the start date of the order is 45 days before the date of the Encounter or 45 days after the date of the Encounter. The data comes from all [facility]. 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 Radiology Reports and Pathology Reports are provided separately, in subsequent sections.Lab Results This section contains the Chemistry/Hematology Results that were resulted 30 days before or 30 daysafter the date of the Encounter. Date/Time Source Result Type Result - Unit Interpretation Reference Range Comment Jan 11, 2022 12:55 PM [facility] ALT/SGPT Specim en Type: PLASMA No comment enter ed. Ordering Provid er: ADAM MORAN Report Released Date/Time: May 29, 2020 05:02 AM Reporting Lab: [facility] [address] [facility] [address] Performing Lab: [facility] [address] [facility] [address] ALT/SGPT 22 <55 Jan 11, 2022 [facility] CREATININE(INCLUDES EGFR) Sp ecimen Type: PLASMA 12:55 PM No comment enter ed. Ordering Provid er: ADAM MORAN Report Released Date/Time: May 29, 2020 05:02 AM Reporting Lab: [facility] [address] [facility] [address] Performing Lab: [facility] [address] [facility] [address] CREATININE 1.0 0.7-1.2 CREAT EGFR(CKD-EPI) 79 >60 Jan 11, 2022 12:55 PM [facility] CBC Specim en Type: BLOOD No comment enter ed. Ordering Provid er: ADAM MORAN Report Released Date/Time: May 29, 2020 05:02 AM Reporting Lab: [facility] [address] [facility] [address] Performing Lab: [facility] [address] [facility] [address] WBC 5.01 4.0-11.0 RBC 6.38 H 4.6-6.2 HGB 19.1 H 13.5-17.9 HCT 56.0 H 41-54 MCV 87.8 80-100 MCH 29.9 27-33 MCHC 34.1 32.0-37.5 PLT 202 150-400 MPV 8.9 7.4-10.4 RDW 14.4 11.5-14.5 Jan 11, 2022 [facility] LIPID PANEL,NON-FASTING Spec imen Type: PLASMA 12:55 PM No comment enter ed. Ordering Provid er: ADAM MORAN Report Released Date/Time: May 29, 2020 05:02 AM Reporting Lab: [facility] [address] [facility] [address] Performing Lab: [facility] [address] [facility] [address] CHOLESTEROL 168 <199 .HDL 39 L >40 LDL CALCULATION 98 <99 VLDL CALCULATION 31 H <29 NON HDL CHOLESTEROL 129 <129 TRIG(NON FASTING) 157 H <149 Jan 11, 2022 12:55 PM [facility] PSA Specim en Type: SERUM No comment enter ed. Ordering Provid er: ADAM MORAN Report Released Date/Time: May 29, 2020 05:02 AM Reporting Lab: [facility] [address] [facility] [address] Performing Lab: [facility] [address] [facility] [address] PSA 6.43 H <4.00 Jan 11, 2022 12:55 [facility] ELECTROLYTES/ANION GAP Sp ecimen Type: PLASMA PM No comment enter ed. Ordering Provid er: ADAM MORAN Report Released Date/Time: May 29, 2020 05:02 AM Reporting Lab: [facility] [address] [facility] [address] Performing Lab: [facility] [address] [facility] [address] SODIUM 140 136-145 POTASSIUM 4.3 3.5-5.1 CHLORIDE 109 H 98-107 CO2 22 22-29 ANION GAP 9 5-15 Jan 11, 2022 12:55 PM [facility] GLUCOSE Specim en Type: PLASMA No comment enter ed. Ordering Provid er: ADAM MORAN Report Released Date/Time: May 29, 2020 05:02 AM Reporting Lab: [facility] [address] [facility] [address] Performing Lab: [facility] [address] [facility] [address] GLUCOSE 101 H 70-100 Jan 11, 2022 [facility] HEMOGLOBIN A1C Specimen Typ e: BLOOD [...] May 29, 2020 05:02 AM Reporting Lab: [facility] [address] [facility] [address] Performing Lab: [facility] [address] [facility] [address] HEMOGLOBIN A1C 5.8 4.0-6.0 Jan 11, 2022 12:55 [facility] TSH W/REFLEX TO FREE Spec imen Type: PLASMA PM T4 No comment enter ed. Ordering Provid er: ADAM MORAN Report Released Date/Time: May 29, 2020 05:02 AM Reporting Lab: [facility] [address] [facility] [address] Performing Lab: [facility] [address] [facility] [address] TSH 2.28 0.35-4.94 Jan 11, 2022 12:55 PM [facility] AST/SGOT Specim en Type: PLASMA No comment enter ed. Ordering Provid er: ADAM MORAN Report Released Date/Time: May 29, 2020 05:02 AM Reporting Lab: [facility] [address] [facility] [address] Performing Lab: [facility] [address] [facility] [address] AST/SGOT 17 <34 Jan 03, 2022 09:31 [facility] .OCCULT BLOOD(FIT) Specim en Type: FECES AM No comment enter ed. Ordering Provid er: RELL ISBELL Report Released Date/Time: Jan 03, 2022 09:31 AM Reporting Lab: [facility] [address] [facility] [address] Performing Lab: [facility] [address] [place] [place] [address] .OCCULT BLOOD(FIT) Negative Social History: Smoking Status (Most current) and Tobacco Use (All prior to encounter date) This section includes the most current, and the historical, smoking and tobacco-related health factors from the [facility] where the Encounter took place.Current Smoking Status This section includes the most current smoking, or tobacco-related health factor, from the [facility] where the Encounter took place. Date/Time Current Smoking Status Comment Facility Mar 20, 2019 02:50 PM [place]-TOBACCO QUIT 15 YRS OR MORE [facility] Tobacco Use History This section includes a history of the smoking, or tobacco- related health factors, that were collected on or before the date of the Encounter. The data comes from the [facility] where the Encounter took place. Date/Time Smoking Status/Tobacco Use Comment [facility] it Mar 20, 2019 02:50 PM [facility]-TOBACCO QUIT 15 YRS OR MORE [facility] Jan 17, 2018 03:17 PM VA-TOBACCO FORMER USER [facility] Jan 17, 2018 03:17 PM VA-TOBACCO QUIT 15 YRS OR MORE [facility] Jan 26, 2017 01:41 PM LIFETIME NON-TOBACCO USER [facility] Dec 09, 2015 08:24 AM FORMER TOBACCO USER 7Y OR GREATER [facility] Apr 19, 2010 08:36 AM FORMER TOBACCO USER 7Y OR GREATER [facility] Encounter Notes: All associated encounter notes This section contains the clinical notes associated to the Encounter. Date/Time Encounter Note(s) Provider Source Jan 10, 2022 08:39 AM REPORT OF CONTACT: XENIA QUIROZ [facility] LOCAL TITLE: SCREENING COVID CONTACT CENTER NOT E V STANDARD TITLE: REPORT OF CONTACT DATE OF NOTE: JAN 10, 2022@08:39 ENTRY DATE: JAN 10, 2022@08:41:06 AUTHOR: XENIA QUIROZ EXP COSIGNER: URGENCY: STATUS: COMPLETED Coronavirus Disease 2019 (COVID-19) Screen The patient was asked if in the last 14 days the y have had new onset of any COVID-19 symptoms. They report the following: No symptoms Within the past 14 days, the patient reports no exposure to someone with a febrile/respiratory illness or someone with a kn own or suspected case of COVID-19 (within 6 feet for > 15 minutes). Result: Screen is negative. /jose/ XENIA QUIROZ [id number] CCC MSA Signed: 01/10/2022 08:41
--- OUTSIDE RECORDS SUMMARY | 2022-02-11 08:56 | XMS_ITS | Continuity of Care Document ---
:[address] [facility] Care Team Providers Name Role Phone [facility] Unavailable Unavailable Problems Combined list of problems from Department of Defense and Veterans Affairs facilities. It does not include entries that were removed or entered in error. Problem Status Onset Problem Type Date of Comments Source Date Resolution Basal cell Active Condition Mar 17, [place] [facility] [facility] carcinoma of skin 2016 [facility] S Entered By: ALEJANDRO REN Comment: 03.15.2017 R Nose. Benign essential Active Condition [place] hypertension HCS (SNOMED CT [id number]) Elevated PSA Active Condition [place] [facility] Erythrocytosis Active Condition [place] [facility] Gout Active [place] [facility] H/O: vasectomy Active Condition [place] [facility] Health Maintenance Active Condition [place] (ICD-9-CM V65.9) HCS History of Active Condition [place] [facility] tonsillectomy [facility] Hyperlipidemia Active Condition [place] [facility] Obstructive sleep Active Condition [place] [facility] apnea of adult [facility] Diagnosis: [facility] ICD-10-CM I10 [facility] Essential (primary) hypertensionwith Provider Comments: Benign essential hypertension (SCT 1085112) Diagnosis: [facility] ICD-10-CM C44.41 HCS Basal cell carcinoma of skin of scalp and neckwith Provider Comments: Basal cell carcinoma of skin of scalp and neck Diagnosis: Active Diagnosis [facility] ICD-10-CM Z71.89 HCS Other specified counselingwith Provider Comments: Other specified Counseling Diagnosis: Active Diagnosis [facility] ICD-10-CM Z85.828 HC S Personal history of other malignant neoplasm of skinwith Provider Comments: Personal history of other malignant neoplasm of skin Medications Combined list of outpatient medications from Department of Defense and Veterans Affairs facilities. Medications provided include 1) outpatient medications from the last 15 months, and 2) patient-reported medications. Medication Details Route Status Patient Prescription Prescription Last Ordering Order Source Instructions Expires Number Dispense Provider Date Date ALLOPURINOL TAKE BY ORALLY ACTIVE LUISA,L 01/30/ [place] TAB MOUTH MAME E 2016 [facility] AMLODIPINE TAKE ORALLY ACTIVE LUISA,L [place] BESYLATE ONE-HALF 2015 [facility] 10MG TAB TABLET HCS BY MOUTH ASPIRIN TAKE ONE ORALLY ACTIVE TATYANA,MAY 05/ [place] 325MG TAB TABLET ICE L 2009 [facility] BY MOUTH HCS EVERY DAY KETOCONAZOL SHAMPOO TOPICA 11/28/2021 [id number] A MON,GABR 11/29/ [place] E 2% SCALP, LLY 1 IEL J 2020 [facility] SHAMPOO LATHER HCS FOR 5 MINUTES THEN RINSE 3 TIMES-A- WEEK FOR SEBORRHE A LISINOPRIL TAKE ONE ORALLY ACTIVE LUISA,L 12/08/ [place] 40MG TAB TABLET 2015 [facility] BY MOUTH [facility] EVERY DAY MULTIVITAMI TAKE ONE ORALLY ACTIVE LUISA,L 12/08 / [place] NS CAP/TAB TABLET 2015 [facility] BY [facility]OUTH [facility] EVERY DAY NAPROXEN TAKE ORALLY ACTIVE TATYANA,MAY 05/ [place] 250MG TAB ONE-HALF ICE L 2009 [facility] TABLET [facility]CS BY MOUTH PRN SILDENAFIL TAKE ONE ORALLY 05/21/2021 [id number] B ATY,GABR 05/20/ [place] CITRATE TABLET 1 IELLE M 2020 [facility] 100MG TAB BY MOUTH HCS NEEDED FOR ERECTION S - TAKE 1 HOUR BEFORE ANTICIPA CLARE SEXUAL ACTIVITY --MAXIMU M 4 DOSES FOR 30-DAY SUPPLY. Allergies, Adverse Reactions, Alerts Combined list of allergies from Department of Defense and Veterans Affairs facilities. It does not include entries that were removed or entered in error. Substance Category Reaction Severity Reaction Status Date Comments S ource type Reported CEFADROXIL Propensity Bleeding Propensity active [place] to adverse to adverse 2 [facility] reactions reactions HCS to drug to drug (finding) (finding) HCTZ Propensity Gout Propensity active [place] HYDROCHLOROT to adverse to adverse 6 [facility] HIAZIDE reactions reactions HCS to drug to drug (finding) (finding) METOPROLOL Propensity Fatigue Propensity active [place] to adverse to adverse 8 [facility] reactions reactions [facility]CS to drug to drug (finding) (finding) Immunizations Combined list of available immunizations from the Department of Defense and Veterans Affairs facilities. Immunization Series Date Administered Site Reaction Lot CVX Drug St atus Comments Source Given By Number Code Stylist Assistant COVID-19 2 complet PFR; [place] (PFIZER), 2020 ed [id number]; [place] MRNA, LNP-S, 02 HCS PF, 30 1 MCG/0.3 ML DOSE COVID-19 1 complet PFR; [place] (PFIZER), 2020 ed [id number]; [place] MRNA, LNP-S, 02 HCS PF, 30 1 MCG/0.3 ML DOSE PNEUMOCOCCAL complet merc k and [place] POLYSACCHARID 2018 ed co,R01 [facility] [id number] HC S 20 [place]AP complet sanofi [place] 2018 ed pastuer [facility] [facility] A XJ5L2,10/ HCS / PNEUMOCOCCAL complet [facility] [place] CONJUGATE PCV 2016 ed PHARM, M79 [facility] 13 321,12/08 HCS ZOSTER LIVE complet [place] and [place] 2016 ed CO,[id number] [place] [facility] 1,[id number] HCS 16 Results Combined list of recent chemistry, hematology and other laboratory results from Department of Defense and Veterans Affairs, ranging from 15 months to all on record, depending upon the facility. Order Results Value Reference Date Interpretation Specimen Commen ts Source Name Range ALT/SGPT ALANINE 22 <55 - 55 01/11 Specimen Type: PLASMA [place] AMINOTRANS No comment e ntered. IS [facility] ERASE Ordering Provid er: ADAM MORAN [ENZYMATIC Report Relelaly sed Date/Time: May 29, 2020 05:02 AM ACTIVITY/VO Reporting L ab: [facility] LUME] IN [address] [facility] [address] SERUM OR Performing Lab : [facility] PLASMA [address] [facility] [address] [facility] [address] CREATININ CREATININE 1.0 0.7 - 1.2 01/11 Specimen Type: PLASMA [place] E(INCLUDE [MASS/VOLUM No comment entered. IS [facility] S EGFR) E] IN SERUM Ordering Pr ovider: LUISA,ADAM E OR PLASMA Report Releas ed Date/Time: May 29, 2020 05:02 AM Reporting Lab: [facility] [address] [facility] [address] Performing Lab: [facility] [address] [place] [address] CREATININ GLOMERULAR 79 60 01/11 Specimen Ty pe: PLASMA [place] E(INCLUDE FILTRATION /2021 No comment entered. IS [facility] S EGFR) RATE/1.73 Ordering Prov ider: ADAM MORAN SQ Report Released Date/Time: May 29, 2020 05:02 AM M.PREDICTED Reporting L ab: [facility] [VOLUME [place] [address] RATE/AREA] Performing L ab: [facility] IN SERUM, [address] [facility] [address] PLASMA OR BLOOD BY CREATININE- BASED FORMULA (CKD-EPI) CBC LEUKOCYTES 5.01 4.0 - 11.0 01/11 Specimen T ype: BLOOD [place] [#/VOLUME] /2021 No comment en tered. IS [place] HCS IN BLOOD BY Ordering Pr ovider: ADAM MORAN AUTOMATED Report Releas ed Date/Time: May 29, 2020 05:02 AM COUNT Reporting Lab: [facility] [place] [address] Performing Lab: [facility] [place] [address] CBC ERYTHROCYTE 6.38 4.6 - 6.2 01/11 H Specimen T ype: BLOOD [place] S /2021 No comment enter ed. IS [facility] HCS [#/VOLUME] Ordering Pro vider: ADAM MORAN IN BLOOD BY Report Rele ased Date/Time: May 29, 2020 05:02 AM AUTOMATED Reporting Lab : [facility] COUNT [address] [facility] [address] Performing Lab: [facility] [address] [facility] [address] CBC HEMOGLOBIN 19.1 13.5 - 01/11 H Specimen Type : BLOOD [place] [MASS/VOLUM 17.9 /2021 No comment e ntered. IS [facility] HCS E] IN BLOOD Ordering Pr ovider: ADAM MORAN Report Released Date/Time: May 29, 2020 05:02 AM Reporting Lab: [facility] [place] [address] Performing Lab: [facility] [address] [place] [facility] [address] CBC HEMATOCRIT 56.0 41 - 54 01/11 H Specimen Type : BLOOD [place] [VOLUME /2021 No comment enter ed. IS [facility] FRACTION] Ordering Prov ider: ADAM MORAN OF BLOOD BY Report Rele ased Date/Time: May 29, 2020 05:02 AM AUTOMATED Reporting Lab : [facility] COUNT [address] [facility] [facility] [address] Performing Lab: [facility] [address] [place] [facility] [address] CBC MCV 87.8 80 - 100 01/11 Specimen Type: BLOOD [place] [ENTITIC /2021 No comment ente red. IS [facility] VOLUME] BY Ordering Pro vider: ADAM MORAN AUTOMATED Report Releas ed Date/Time: May 29, 2020 05:02 AM COUNT Reporting Lab: [facility] [address] [facility] [address] Performing Lab: [facility] [address] [facility] [address] CBC MCH 29.9 27 - 33 01/11 Specimen Type: B LOOD [place] [ENTITIC /2021 No comment ente red. IS [facility] MASS] BY Ordering Provi johnny: ADAM MORAN AUTOMATED Report Releas ed Date/Time: May 29, 2020 05:02 AM COUNT Reporting Lab: [facility] [address] [facility] [address] Performing Lab: [facility] [address] [facility] [address] CBC MCHC 34.1 32.0 - 01/11 Specimen Type: B LOOD [place] [MASS/VOLUM 37.5 /2021 No comment e ntered. IS [facility] E] BY Ordering Provid er: ADAM MORAN AUTOMATED Report Releas ed Date/Time: May 29, 2020 05:02 AM COUNT Reporting Lab: [facility] [address] [facility] [facility] [address] Performing Lab: [facility] [address] [facility] [facility] [address] CBC PLATELETS 202 150 - 400 01/11 Specimen Typ e: BLOOD [place] [#/VOLUME] /2021 No comment en tered. IS [facility] IN BLOOD BY Ordering Pr ovider: LUISA,ADAM E AUTOMATED Report Releas ed Date/Time: May 29, 2020 05:02 AM COUNT Reporting Lab: [facility] [address] [place] [address] Performing Lab: [facility] [address] [place] [address] CBC PLATELET 8.9 7.4 - 10.4 01/11 Specimen Typ e: BLOOD [place] MEAN VOLUME /2021 No comment e ntered. IS [facility] [ENTITIC Ordering Provi johnny: ADAM MORAN VOLUME] IN Report Relea sed Date/Time: May 29, 2020 05:02 AM BLOOD BY Reporting Lab: [facility] AUTOMATED [address] [facility] [address] COUNT Performing Lab: [facility] [address] [place] [address] CBC ERYTHROCYTE 14.4 11.5 - 01/11 Specimen Typ e: BLOOD [place] DISTRIBUTIO 14. No comment e ntered. IS [facility] N WIDTH Ordering Provid er: ADAM MORAN [RATIO] BY Report Relea sed Date/Time: May 29, 2020 05:02 AM AUTOMATED Reporting Lab : [facility] [place] [address] Performing Lab: [facility] [address] [facility] [address] LIPID CHOLESTEROL 168 <199 - 199 01/11 Specimen Type: PLASMA [place] PANEL,NON [MASS/VOLUM /2021 No comment entered. IS [facility] -FASTING E] IN SERUM Ordering P rovider: ADAM MORAN E OR PLASMA Report Releas ed Date/Time: May 29, 2020 05:02 AM Reporting Lab: [facility] [address] [place] [address] Performing Lab: [facility] [address] [place] [address] LIPID CHOLESTEROL 39 40 01/11 L Specimen Typ e: PLASMA [place] PANEL,NON IN HDL /2021 No comment ent ered. IS [facility] -[facility] [MASS/VOLUM Ordering P rovider: ADAM MORAN E E] IN SERUM Report Rele ased Date/Time: May 29, 2020 05:02 AM OR PLASMA Reporting Lab : [facility] [address] [place] [address] Performing Lab: [facility] [place] [address] LIPID CHOLESTEROL 98 <99 - 99 01/11 Specimen Ty pe: PLASMA [place] PANEL,NON IN LDL /2021 No comment ent ered. IS [facility] -[facility] [MASS/VOLUM Ordering P rovider: ADAM MORAN] IN SERUM Report Rele ased Date/Time: May 29, 2020 05:02 AM OR PLASMA Reporting Lab : [facility] BY [place] [address] CALCULATION Performing Lab: [facility] [address] [place] [address] LIPID CHOLESTEROL 31 <29 - 29 20 H Specimen Ty pe: PLASMA [place] PANEL,NON IN VLDL /2021 No comment ent ered. IS [facility] -[facility] [MASS/VOLUM Ordering P rovider: ADAM MORAN] IN SERUM Report Rele ased Date/Time: May 29, 2020 05:02 AM OR PLASMA Reporting Lab : [facility] BY [place] [address] CALCULATION Performing Lab: [facility] [place] [address] LIPID CHOLESTEROL 129 <129 - 129 01/11 Specimen Type: PLASMA [place] PANEL,NON NON HDL /2021 No comment ent ered. IS [facility] -[facility] [MASS/VOLUM Ordering P rovider: ADAM MORAN] IN SERUM Report Rele ased Date/Time: May 29, 2020 05:02 AM OR PLASMA Reporting Lab : [facility] [place] [address] Performing Lab: [facility] ONE [facility] [place] [address] LIPID TRIGLYCERID 157 <149 - 149 01/11 H Specimen Type: PLASMA [place] PANEL,NON E /2021 No comment ent ered. IS [facility] -[facility] [MASS/VOLUM Ordering P rovider: ADAM MORAN] IN SERUM Report Rele ased Date/Time: May 29, 2020 05:02 AM OR PLASMA Reporting Lab : [facility] [place] [address] Performing Lab: [facility] [place] [address] PSA PROSTATE 6.43 <4.00 - 0920 H Specimen Type: SERUM [place] SPECIFIC AG 4.00 No comment e ntered. IS [facility] [MASS/VOLUM Ordering Pr ovider: ADAM MORAN] IN SERUM Report Rele ased Date/Time: May 29, 2020 05:02 AM OR PLASMA Reporting Lab : [facility] [place] [address] Performing Lab: [facility] ONE [facility] [place] [address] ELECTROLY SODIUM 140 136 - 145 01/11 Specimen Typ e: PLASMA [place] AMY/ANION [MOLES/VOLU /2021 No comment entered. IS [facility] GAP ME] IN Ordering Provid er: ADAM MORAN SERUM OR Report Release d Date/Time: May 29, 2020 05:02 AM PLASMA Reporting Lab: [facility] ONE [facility] [address] Performing Lab: [facility] [place] [address] ELECTROLY POTASSIUM 4.3 3.5 - 5.1 01/11 Specimen T ype: PLASMA [place] AMY/ANION [MOLES/VOLU /2021 No comment entered. IS [facility] GAP ME] IN Ordering Provid er: ADAM MORAN SERUM OR Report Release d Date/Time: May 29, 2020 05:02 AM PLASMA Reporting Lab: [facility] [address] [facility] [address] Performing Lab: [facility] [place] [address] ELECTROLY CHLORIDE 109 98 - 107 01/11 H Specimen Typ e: PLASMA [place] AMY/ANION [MOLES/VOLU /2021 No comment entered. IS [facility] GAP ME] IN Ordering Provid er: ADAM MORAN SERUM OR Report Release d Date/Time: May 29, 2020 05:02 AM PLASMA Reporting Lab: [facility] [address] [facility] [address] [facility] [address] Performing Lab: [facility] [address] [facility] [facility] [address] ELECTROLY CARBON 22 22 - 29 01/11 Specimen Type: PLASMA [place] AMY/ANION DIOXIDE, /2021 No comment en tered. IS [facility] GAP TOTAL Ordering Provid er: ADAM MORAN [MOLES/VOLU Report Rele ased Date/Time: May 29, 2020 05:02 AM ME] IN Reporting Lab: [facility] SERUM OR [address] [facility] [address] PLASMA Performing Lab: [facility] [address] [place] [address] ELECTROLY ANION GAP 9 5 - 15 01/11 Specimen Typ e: PLASMA [place] AMY/ANION IN SERUM OR /2021 No comment entered. IS [facility] GAP PLASMA Ordering Provid er: ADAM MORAN Report Released Date/Time: May 29, 2020 05:02 AM Reporting Lab: [facility] [place] [address] Performing Lab: [facility] [address] [facility] [address] GLUCOSE GLUCOSE 101 70 - 100 01/11 H Specimen Type: PLASMA [place] [MASS/VOLUM /2021 No comment e ntered. IS [facility] E] IN SERUM Ordering Pr ovider: ADAM MORAN OR PLASMA Report Releas ed Date/Time: May 29, 2020 05:02 AM Reporting Lab: [facility] [address] [place] [address] Performing Lab: [facility] [place] [address] HEMOGLOBI HEMOGLOBIN 5.8 4.0 - 6.0 01/11 Specimen Type: BLOOD [place] N A1C A1C/HEMOGLO /2021 Comment: Va lues obtained from A1C measurements can vary. For typical A1C assays, a reported value of 7.0 could actually be between 6.7 and 7.3 if measured by a reference method. A reported value of 9.0 IS [facility] BIN.TOTAL could actuall y be between 8.7 and 9.3. Ref: http://www.ngsp.org/CAPdata.asp IN BLOOD Ordering Provi johnny: ADAM MORAN Report Released Date/Time: May 29, 2020 05:02 AM Reporting Lab: [facility] [address] [place] [address] Performing Lab: [facility] [address] [place] [address] TSH THYROTROPIN 2.28 0.35 - 01/11 Specimen Typ e: PLASMA [place] W/REFLEX [UNITS/VOLU 4.94 /2021 No comment entered. IS [facility] TO FREE ME] IN Ordering Provid er: ADAM MORAN T4 SERUM OR Report Release d Date/Time: May 29, 2020 05:02 AM PLASMA Reporting Lab: [facility] [address] [facility] [address] Performing Lab: [facility] [place] [address] AST/SGOT ASPARTATE 17 <34 - 34 01/11 Specimen Typ e: PLASMA [place] AMINOTRANS No comment e ntered. IS [facility] ERASE Ordering Provid er: ADAM MORAN [ENZYMATIC Report Relea sed Date/Time: May 29, 2020 05:02 AM ACTIVITY/VO Reporting L ab: [facility] LUME] IN [address] [facility] [address] SERUM OR Performing Lab : [facility] PLASMA [address] [facility] [address] Vital Signs Combined list of inpatient and outpatient Vital Signs from Department of Defense and Veterans Affairs, ranging from 12 months to all on record, depending upon the facility. Vital Sign Value Date Comments Source SYSTOLIC BLOOD PRESSURE 120 01/11/2022 14:16:34 [facility] DIASTOLIC BLOOD PRESSURE 81 01/11/2022 14:16:34 [facility] PULSE OXIMETRY 93% 01/11/2022 14:16:34 [place] [facility] WEIGHT 241 01/11/2022 14:16:34 [place] [facility] BMI 33kg/m2 01/11/2022 14:16:34 [place] [facility] PAIN 0 01/11/2022 14:16:34 [place] [facility] PULSE 92 01/11/2022 14:16:34 [place] [facility] RESPIRATION 18 01/11/2022 14:16:34 [place] [facility] Encounters Combined list of: 1) Encounters from Department of Veterans Affairs facilities going back up to the last 18 months. 2) Encounters from the Department of Defense facilities going back up to 280 months. Location Location Encounter Encounter Reason Attending ADM DC Stat us Disposition Source Details Type Number For Provider Date Date Visit OFFICE O/P 91237-4.61 Diagnos VERNELL,NO 11/27 [place] EST MOD [id number] is: RELL [facility] 30-39 MIN ICD-10- HCS CM Z85.828 Persona l history of other maligna nt neoplas m of skin
with Provide r Comment s: Persona l history of other maligna nt neoplas m of skin Outpatient 62101-5.61 CIMIKEKAYE 12/02 [place] Encounter [id number] M /2020 [place] Outpatient 37714-2.61 Baldomero MATTNO 12/02 [place] Encounter [id number] is: RA ZACARIAS ROBERT S [facility] ICD-10- HCS CM C44.41 Basal cell carcino ma of skin of scalp and neck
with Provide r Comment s: [place]al [place] [address]-3.61 Diagnos CHELSEA AC 12/09 [place] EDUCATION [id number] is: /2020 [facility] NOC ICD-10- HCS INDIVID CM Z71.89 Other specifi ed student counselor ing<br/ >with Provide r Comment s: [place] [address]-3.61 Diagnos CHELSEA AC 12/21 [place] EDUCATION [id number] is: /2020 [facility] NOC ICD-10- HCS INDIVID CM Z71.89 Other specifi ed student counselor ing<br/ >with Provide r Comment s: Other specifi ed Traffic Or System Dispatcher ing INTMD RPR 97415-8.61 Diagnos CELY DUMONT 12/22 [place] S/A/T/EXT [id number] is: IEL R [facility] 2.6-7.5 ICD-10- HCS CM C44.41 Basal cell carcino ma of skin of scalp and neck
with Provide r Comment s: Basal cell carcino ma of skin of scalp and neck Outpatient 09582-6.61 01/13 [place] Encounter [id number] /2020 [place] [facility] Outpatient 75471-5.61 NIEHYAMIL,GL 01/21 [place] Encounter [id number] ORIA E [facility] Outpatient 75381-0.61 05/27 [place] Encounter [id number] /2021 [facility] Outpatient 69196-3.61 01/03 [place] Encounter [id number] /2021 [place] [facility] Outpatient 63255-3.61 LUISA,LA 01/10 [place] Encounter [id number] [facility] OFFICE O/P 97635-3.61 Diagnos ASHUTOSH MORAN 01/11 [place] EST MOD [id number] is: [facility] 30-39 MIN ICD-10- HCS CM I10 Essenti al (primar y) hyperte nsion<b r/>with Provide r Comment s: Benign essenti al hyperte nsion (SCT [id number] ) Social History Combined list of available smoking, tobacco, and other social [facility]. Social History Type Response Date Comment Source Tobacco smoking status VA-TOBACCO FORMER USER 01/11/2022 [facility] NHIS History of tobacco use MS-TOBACCO QUIT 15 YRS 01/11/2022 [facility] OR MORE History of tobacco use MS-TOBACCO QUIT 15 YRS 03/20/2019 [facility] OR MORE History of tobacco use MS-TOBACCO FORMER USER 01/17/2018 [facility] History of tobacco use LIFETIME NON-TOBACCO 01/26/2017 [facility] USER History of tobacco use FORMER TOBACCO USER 7Y 12/09/2015 [facility] OR GREATER History of tobacco use FORMER TOBACCO USER 7Y 04/19/2010 [facility] OR GREATER Plan of Care List of future care activities from Department [facility] facilities. Additional future care activities may be listed in the Assessment and Plan section. Date/Time Care Activity Care Activity Detail Facility 01/20/2022 Consult Order [facility] [place] [place] [facility] Central Sterile Technician's Choice
--- OUTSIDE RECORDS SUMMARY | 2022-02-11 08:56 | XMS_ITS | Encounter Summary ---
:1945 Author Organization [facility] Address [address] [place] [address] Care Team Providers Name Role Phone Unassigned, Provider Primary Care Provider Unavailable Encounter Details Date Type Department Care Team Description 04/24/1989 PN Conversion Only PATENT CLERK [address] [place] [address] Social History Tobacco Use Types Packs/Day Years Used Date Smoking Tobacco: Never Assessed Sex Assigned at Date Recorded Not on file documented as of this encounter Plan of Treatment Upcoming Encounters Date Type Specialty Care Team Description 02/14/2022 Appointment General Dentistry Bailey Castrejon, [facility] [address] [place] [address] (Wo rk) documented as of this encounter Visit Diagnoses Not on filedocumented in this encounter Care Teams Religion Professor Relationship Specialty Start Date End Date Unassigned, Provider PCP - General 01/26/00 03/24/[address] [place] [address] documented as of this encounter
--- OUTSIDE RECORDS SUMMARY | 2022-02-11 08:56 | XMS_ITS | Encounter Summary ---
:1945 Author Organization [facility] Address [address] [place] [address] Care Team Providers Name Role Phone Unassigned, Provider Primary Care Provider Unavailable Reason for Visit Reason Comments Suture/Staple Removal Health Maintanence Declined flu shot. Encounter Details Date Type Department Care Team Description 01/27/2012 Office Visit [facility], [place] [address] [place], [place] [id number] Encounter [place] [address] [place] [address] of sutures (Primary [address] [facility] [place] [place] [address] Social History Tobacco Use Types Packs/Day Years Used Date Smoking Tobacco: Former Cigarettes 1 9 Quit : 04/24/1971 Alcohol Use Standard Drinks/Week Comments Not Asked 0 (1 standard drink = 0.6 oz pure alcoho l) Sex Assigned at Date Recorded Not on file documented as of this encounter Last Filed Vital Signs Vital Sign Reading Time Taken Comments Blood Pressure 118/74 01/27/2012 1:18 PM CDT Pulse 84 01/27/2012 1:18 PM CDT Temperature 35.9 ??C (96.7 ??F) 01/27/2012 1:18 PM CDT Respiratory Rate 16 01/27/2012 1:18 PM CDT Oxygen Saturation - - Inhaled Oxygen Concentration - - Weight - - Height - - Body Mass Index - - documented in this encounter Progress Notes Kristine Brown MD - 01/27/2012 1:37 PM CDT Chief Complaint Patient presents with ??? SUTURE REMOVAL ??? Health Maintanence Declined flu shot. 67 yo M here for suture removal s/p suspicious lesion removal, L side, on 01/20/12. Path+BCC with clear margins, has f/u appointment with dermatology in about 1 month for full body check. Patient due to have sutures removed on 01/30/12-he feels that the sutures are more itching/catching on clothing, pr efers to have them removed today. Allergies Allergen Reactions ??? Oxycodone Other, see comments ROS: see above for pertinents. BP 118/74 Pulse 84 Temp(Src) 96.7 ??F (35.9 ??C) (Tympanic) Resp 16 General: He appears well, alert and oriented x 3, pleasant and cooperative. Skin: approx 5 cm incision C/D/I. A/P: 1. Suture removal: sutures x 7 removed, patient tolerated this well, incision C/D/I. Discussed woundcares. To monitor for s/s infection and f/u with dermatology in about one month for skin check.Kristine Brown MD 01/28/2012, 11:07 AM documented in this encounter Plan of Treatment Upcoming Encounters Date Type Specialty Care Team Description 02/14/2022 Appointment General Dentistry Bailey Castrejon, [facility] [address] [place] [address] (Wo rk) documented as of this encounter Visit Diagnoses Diagnosis Encounter for removal of sutures - Prima ry documented in this encounter Care Teams Feed In Worker Relationship Specialty Start Date End Date Unassigned, Provider PCP - General 01/26/00 03/24/13 [address] [place] [address] documented as of this encounter
--- OUTSIDE RECORDS SUMMARY | 2022-02-11 08:56 | XMS_ITS | Encounter Summary ---
:1945 Author Organization [facility] Address [address] [place] [address] Care Team Providers Name Role Phone Unassigned, Provider Primary Care Provider Unavailable Reason for Referral Consult/Transfer Care (Routine) - Closed Specialty Diagnoses / Procedures Referred By Contact [place] [address] [place], [place] [address] Referral ID Status Reason Start Date Expiration Date Visits Requ ested Visits Authorized [id number] Closed 01/18/2012 1 1 Scheduling Instructions Your provider has recommended an appoint ment with [facility] Surgery Department. You may call [phone] to schedule yo ur appointment. If you prefer, a compliance investigator will contact you within the next 3 busin ess days to assist you in setting up this appointment. Reason for Visit Reason Comments Sore BACK Health Maintanence Declined FLU VACCINE Encounter Details Date Type Department Care Team Description 01/18/2012 Office Visit [facility] Chnaelle Khan Skin lesion (Primary Practice [place]) [address] [facility] [place] [address] [place] [address] [phone] Social History Tobacco Use Types Packs/Day Years Used Date Smoking Tobacco: Never Assessed Sex Assigned at Date Recorded Not on file documented as of this encounter Last Filed Vital Signs Vital Sign Reading Time Taken Comments Blood Pressure 126/80 01/18/2012 10:29 AM CDT Pulse 79 01/18/2012 10:29 AM CDT Temperature 36.8 ??C (98.2 ??F) 01/18/2012 10:29 AM CDT Respiratory Rate - - Oxygen Saturation - - Inhaled Oxygen Concentration - - Weight 100.7 kg (222 lb) 01/18/2012 10:29 AM CDT Height 180.3 cm (5' 11) 01/18/2012 10:29 AM CDT Body Mass Index 30.96 01/18/2012 10:29 AM CDT documented in this encounter Progress Notes Chanelle Khan MD - 01/18/2012 10:39 AM CDT Subjective: 66-year-old male comes in with a nonhealing lesion on his left upper back. He served in [employer]. He returned in 1968. He had a lump on his left upper back at that time. He eventually had itremoved in the early . Was told by the physician at that time that it was benign although he does not know what it was. Seemed to heal okay but about 18 months ago he began noticing that he was scabbing over off-and-on. He would open up, former scab. The scab but then get scratched off and would bleed for while and then scab over again. This is been going on for about 18 months. Just does not seem to ever want to completely heal. He otherwise feels well. Denies any medical issues other than hype rtension, which is treated. Generally very healthy. Has not noted any other areas of trauma that hashad difficulty healing. Objective:BP 126/80 Pulse 79 Temp(Src) 98.2 ??F (36.8 ??C) (Tympanic) Ht 5' 11 (1.803 m) Wt222 lb (100.699 kg) BMI 30.96 kg/m2 He appears well. In the left upper back, there is a nearly circular area of scarring that is about 2 cm in diameter. In the center, there is an irregular scab. Minimal inflammation. The surrounding skin seems normal. Assessment: Nonhealing lesion in his left upper back. Plan: I think that this needs to be removed in its entirety. He is going to make an appointment withthe surgeon for complete removal. Otherwise he will follow with me as needed. documented in this encounter Plan of Treatment Upcoming Encounters Date Type Specialty Care Team Description 02/14/2022 Appointment General Dentistry Bailey Castrejon, [facility] [address] [place] [address] (Wo rk) Scheduled Referrals Name Type Priority Associated Diagnoses Order S chedule SURGERY CONSULT-ADULTS Referral Routine Order ed: 01/18/2012 documented as of this encounter Visit Diagnoses Diagnosis Skin lesion - Primary Unspecified disorder of skin and subcuta neous tissue documented in this encounter Care Teams Interchange Agent Relationship Specialty Start Date End Date Unassigned, Provider PCP - General 01/26/00 03/24/[address] [place] [address] documented as of this encounter
--- OUTSIDE RECORDS SUMMARY | 2022-02-11 08:57 | XMS_ITS | Clinical Summary ---
:1945 Author Organization [facility] Address [place] [address] Care Team Providers Name Role Phone Miguel Dowling MD Primary Care Provider Allergies Active Allergy Reactions Severity Noted Date Comments Cefadroxil Other - Describe In 06/02/2021 Bloody d iarrhea Comment Field Hydrochlorothiazide Gout, Exacerbation 12/11/2015 Metoprolol Other - Describe In 03/12/2018 fatigue Comment Field Oxycodone Other - Describe In 11/09/2011 Patient refuses to Comment Field take it due to family addiction issue s. Medications Medication Sig Dispensed Refills Start Date End Date Status amLODIPine (NORVASC) Take 1 Tablet by 0 04/10/2021 Active 10 mg tablet mouth once daily. allopurinoL (ZYLOPRIM) Take 300 mg by 0 05/12/2021 Active 300 mg tablet mouth once daily. ferrous sulfate, 45 mg Take 1 Tablet by 0 03/26/2021 Active elemental, 142 mg (45 mouth 2 times mg iron) daily. Extended-Release tablet tamsulosin (Flomax) Take 1 Capsule 0 06/02/2021 Active 0.4 mg capsule (0.4 mg) by mouth once daily after a meal. 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 Temperature - - Respiratory Rate - - Oxygen Saturation 95% 06/02/2021 11:48 AM 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 Inhaled Oxygen Concentration - - Weight 112.9 kg (249 lb) 06/02/2021 11:48 AM 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 Height - - Body Mass Index - - Plan of Treatment Health Maintenance Due Date Last Done Comments COVID-19 vaccine series (#1) 1945 Tdap 1958 Depression screening for age 12+ 1959 BMI (ht and wt on same day) for age 18+ 1965 Hepatitis C screening for age 18-79 1965 Tetanus booster 1967 Colonoscopy through age 75 01/25/1992 Lipids for age 45-75 01/25/1992 Zoster (shingles) series for age 50+ (1 of 2) 1997 AAA screening age 55-77 2002 Medicare Wellness for age 65+ 01/25/2012 Pneumococcal series for age 65+ (1 - PCV) 01/25/2012 Influenza for age 65+ 12/23/2021 Procedures Procedure Name Priority Date/Time Associated Diagnosis Comme nts PATH TISSUE EXAM Routine 02/08/2022 9:45 AM Resul ts for this CDT procedure are i n the results section. from Last 3 Months Results PATH TISSUE EXAM (02/08/2022 9:45 AM CDT) Component Value Ref Test Analysis Performed Pathologis t Range Method Time At Signature Case Report Pathology Report ?Case: [id number] ? [facility] Authorizing Provider: ??Joya Bustos MD ??Collected: ? 02/08/2022 0945 ? 2 3:44 PM HEALTH Ordering Location: ? [facility] ?Received: ?02/08/2022 2125 ? CDT [facility]- Pathologist: ? Abi, Zeeshan Chandra, ? CENTRAL ? MD ? LABORATORY Specimens: ?? A) - Cecum ? B) - Larson sverse Colon Polyp ? C) - Rect um ? D) - Rect um ? Amendment 02/10/2022 - DNA [facility] mismatch repair enzyme 2 3:44 PM HEALTH IHC added, see final CDT LABORATOR Y- diagnosis and synoptic CENTRAL sections. LABORATORY Final A) COLON, CECUM, POLYPECTOMY: [facility] Amendment Diagnosis 1. Tubular adenoma 2 3:44 PM HEALTH e lectronically 2. Negative for high grade dysplasia CDT LABORATORY- signed by 3. Per the colonoscopy report: CENTRAL Fani, ?? a. Polyp size: 2 mm JANAE Gatian ?? b. Resection: Complete MD YURIDIA on ?? c. Retrieval: Complete 02/10/2022 at 3:44 PM B) COLON, TRANSVERSE, POLYPECTOMY: Hyperplastic polyp Electronically signed by C) RECTUM, POLYPECTOMIES: Hyperplastic polyps (2) Armen Lowery MD for D) RECTUM, MASS AT 19 CM, BIOPSY: Abi, 1. Adenocarcinoma, low grade (moderately differentiated) Zeeshan 2. Background adenoma is present MD Prateek on 3. Please order CEA level and CT imaging (chest/abdomen/ 02/09/2022 at ?? pelvis) prior to treatment 3:09 PM 4. DNA mismatch repair enzym es intact by immunohistochemistry (see comment and synoptic sections) Comment D) Dr. Alex notified Dr. Zamudio via text message on 02/09/2022. This case was seen in consultation with Dr. Lowery. 02/11/20 2 [facility] 2 3:44 PM HEALTH Please contact us with any questions ([facility] GI pat hology service [phone]). CDT LABORATORY- CENTRAL Formalin-fixed, paraffin-emb edded tissue is available for ancillary studies, to request please contact the [facility] Pathology [facility] ([phone]). Neoplastic tissue available for ancillary studies: FFPE block D1. LABORATORY 02/10/2022 3:43 PM update Ancillary Testing Comment Immunohistochemistry reveals intact nuclear staining for DNA mismatch repair enzymes MLH1, MSH2, MSH6 and PMS2. These results fail to show evidence for defective mismatch repair function or Mercado Syndro me and are approximately 85- 90% sensitive for Mercado syndrome. Cancers with this profile are usually microsatellite stable (TRACIE). If Mercado syndrome is strongly suspected clinically please contact us ([facility] GI Pathology Service ). Rarely there can be a functionally significant mutation that leaves the protein intact or other heritable reasons for this finding. Clinical Mr. Crump is a 77 [facility] Information y.o. with a positive 2 3:44 PM HEALTH Cologuard test. CDT LABORATORY- CENTRAL LABORATORY Gross A) Received in formalin are 4 burdick mucosal fragments ranging from 1 mm to 3 mm in greatest dimension, which are entirely submitted in one cassette. It is labeled with the patient's name and designated cecum. [facility] Description 2 3:44 PM HEALTH B) Received in formalin are 3 burdick mucosal fragments averaging 2 mm in greatest dimension, which are entirely submitted in one cassette. It is labeled with the patient's name and designated transverse colon. CDT LABORATORY- CENTRAL C) Received in formalin is a burdick mucosal fragment measuring 14 mm in greatest dimension, which is entirely submitted in one cassette. It is labeled with the patient's name and designated rectum colon. LABORATORY D) Received in formalin are 6 burdick mucosal fragments ranging from 1 mm to 4 mm in greatest dimension, which are entirely submitted in one cassette. It is labeled with the patient's name and designated rectum, rectal mass BX at 19 cm. Holly [place] Noon 02/08/2022 9:28 PM Microscopic The final diagnosis is [facility] A Description based on microscopic 2 3:44 PM HEALTH examination of CDT LABORATORY- appropriate sections CENTRAL of all specimens. LABORATORY SYNOPTIC Colon and Rectum Biomarker Reporting Template [facility] REPORTING Colon.Bmk - D 2 3:44 PM HEALTH Protocol posted: 10/21/2020 CDT LAB ORATORY- CENTRAL RESULTS LABORATORY ?? Mismatch Repair: ? Immunohistochemistry (IHC) Testing for Mismatch Repair (MMR) Proteins: ? MLH1 Result: ?Intact nuclear expression ? Immunohistochemistry (IHC) Testing for Mismatch Repair (MMR) Proteins: ? MSH2 Result: ?Intact nuclear expression ? Immunohistochemistry (IHC) Testing for Mismatch Repair (MMR) Proteins: ? MSH6 Result: ?Intact nuclear expression ? Immunohistochemistry (IHC) Testing for Mismatch Repair (MMR) Proteins: ? PMS2 Result: ?Intact nuclear expression ? Immunohistochemistry (IHC) Testing for Mismatch Repair (MMR) Proteins: ?Background nonneoplastic tissue / internal control with intact nuclear expression ? IHC Interpretation : ?No loss of nuclear expression of MMR proteins: low probability of MSI-H Additional [facility] Information Interpreted at [facility], Central Laboratory - [address], [place] [address] 2 3:44 PM HEALTH CDT LABORATORY- CENTRAL LABORATORY Specimen Anatomical Collection Method Collection Time Receive d Time (Source) Location / / Volume Laterality Other SPECIMEN FROM 02/08/2022 9:45 AM 02/09/20 22 9:25 LARGE INTESTINE / CDT PM CDT Unknown Specimen 02/08/2022 9:45 AM 2 9:25 (specimen) CDT PM CDT (Transverse Colon Polyp) Specimen 02/08/2022 9:45 AM 2 9:25 (specimen) CDT PM CDT (Rectum) Specimen 02/08/2022 9:45 AM 2 9:25 (specimen) CDT PM CDT (Rectum) Joya Zamudio MD PATHOLOGY/CYTOLOGY Performing Organization Address City/State/ZIP Code Phon e Number [employer] [address] 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
--- OUTSIDE RECORDS SUMMARY | 2022-02-11 08:57 | XMS_ITS | Encounter Summary ---
:1945 Author Organization Department [facility] Address [address] [place] [address] Support Name Relationship Address Phone JB IQBAL Unavailable [address] [place] [address] [phone] [place] [phone] JB IQBAL Unavailable [phone] [place] [address] [phone] [place] [address] BARBARA CORBIN Unavailable [address] [place], [place] Insurance Providers: All historical and current [...] Number [place] HEALTH MEDICARE MCR Apr 24 [id number] RAVI IQBAL Split [facility]) 2015 3 [phone] [facility] ([facility]) HEALTH MEDICARE MCR Apr 24, 75 [id number] RAVI IQBAL [facility] ([facility]) 2014 3 [phone] [facility] ([facility]) Selected Encounter This section includes the information on record at [facility] for the Encounter. Date/Time Encounter Type Encounter Reason Provider Source Description Jan 11, 2022 OFFICE O/P EST PRIMARY ICD-10-CM I10 ADAM MORAN 02:30 PM MOD 30-39 MIN CARE/MEDICINE Essential E (primary) hypertension with Provider Comments: Benign essential hypertension (SCT [id number]) IHE Encounter Template Text not used by [facility] Assessments - Encounter Diagnoses This section includes the primary and secondary diagnoses documented for the Encounter. Date/Time Primary/Secondary Diagnosis Name Provider Source Diagnosis Jan 20, 2022 PRIMARY Essential (primary) ADAM MORAN [facility] 05:58 AM hypertension E [facility] Jan 20, 2022 SECONDARY Elevated prostate ADAM MORAN [facility] 05:58 AM specific antigen E [facility] [PSA] Jan 20, 2022 SECONDARY Familial ADAM MORAN [facility] 05:58 AM erythrocytosis E [facility] Jan 20, 2022 SECONDARY Hyperlipidemia, ADAM MORAN [facility] 05:58 AM unspecified E H[facility] Jan 20, 2022 SECONDARY Obstructive sleep ADAM MORAN [facility] 05:58 AM apnea (adult) E H[facility] (pediatric) Plan of Treatment: Future Appointments (+ 6 months) and Future Tests (+/- 45 days) The Plan of Treatment section includes future care activities for the patient from all [facility] treatmentfacilities. This section includes future appointments and [...] the Encounter. The data comes from all [facility] treatment facilities. Test Date/Time Test Type Test Details Facility Name Jan 20, 2022 06:03 AM Consult Order [facility]EP [facility] OUT[facility] Cryptologic Supervisor's Choice Lab Results: +/- 30 days of the encounter This section includes the Chemistry and Hematology Lab Results on record with [facility] for the patient. Radiology Reports and Pathology Reports are provided separately, in subsequent sections.Lab Results This section contains the Chemistry/Hematology Results that were resulted 30 days before or 30 daysafter the date of the Encounter. Date/Time Source Result Type Result - Unit Interpretation Reference Range Comment Jan 11, 2022 12:55 PM [facility] ALT/SGPT Specim en Type: PLASMA No comment enter ed. Ordering Provid er: ADAM MORAN Report Released Date/Time: May 29, 2020 05:02 AM Reporting Lab: [facility] [address] [facility] MAXIMO SARMIENTO [facility] [address] Performing Lab: [facility] I GUILLERMINA [facility] [address] ALT/SGPT 22 <55 Jan 11, 2022 [facility] CREATININE(INCLUDES EGFR) Sp ecimen Type: PLASMA 12:55 PM No comment enter ed. Ordering Provid er: ADAM MORAN Report Released Date/Time: May 29, 2020 05:02 AM Reporting Lab: [facility] [facility] [address] Performing Lab: [facility] [address] CREATININE 1.0 0.7-1.2 CREAT EGFR(CKD-EPI) 79 >60 Jan 11, 2022 12:55 PM [facility] CBC Specim en Type: BLOOD No comment enter ed. Ordering Provid er: ADAM MORAN Report Released Date/Time: May 29, 2020 05:02 AM Reporting Lab: [facility] [address] Performing Lab: [facility] [address] WBC 5.01 4.0-11.0 RBC 6.38 H 4.6-6.2 HGB 19.1 H 13.5-17.9 HCT 56.0 H 41-54 MCV 87.8 80-100 MCH 29.9 27-33 MCHC 34.1 32.0-37.5 PLT 202 150-400 MPV 8.9 7.4-10.4 RDW 14.4 11.5-14.5 Jan 11, 2022 [facility] LIPID PANEL,NON-FASTING Spec imen Type: PLASMA 12:55 PM No comment enter ed. Ordering Provid er: ADAM MORAN Report Released Date/Time: May 29, 2020 05:02 AM Reporting Lab: [facility] [address] [facility] [address] Performing Lab: [facility] [address] CHOLESTEROL 168 <199 .HDL 39 L >40 LDL CALCULATION 98 <99 VLDL CALCULATION 31 H <29 NON HDL CHOLESTEROL 129 <129 TRIG(NON FASTING) 157 H <149 Jan 11, 2022 12:55 PM [facility] PSA Specim en Type: SERUM No comment enter ed. Ordering Provid er: ADAM MORAN Report Released Date/Time: May 29, 2020 05:02 AM Reporting Lab: [facility] [address] Performing Lab: [facility] [address] PSA 6.43 H <4.00 Jan 11, 2022 12:55 [facility] ELECTROLYTES/ANION GAP Sp ecimen Type: PLASMA PM No comment enter ed. Ordering Provid er: ADAM MORAN Report Released Date/Time: May 29, 2020 05:02 AM Reporting Lab: [facility] [address] [facility] [address] Performing Lab: [facility] [address] [facility] [address] SODIUM 140 136-145 POTASSIUM 4.3 3.5-5.1 CHLORIDE 109 H 98-107 CO2 22 22-29 ANION GAP 9 5-15 Jan 11, 2022 12:55 PM [facility] GLUCOSE Specim en Type: PLASMA No comment enter ed. Ordering Provid er: ADAM MORAN Report Released Date/Time: May 29, 2020 05:02 AM Reporting Lab: [facility] [address] [facility] [address] Performing Lab: [facility] [address] [facility] [address] GLUCOSE 101 H 70-100 Jan 11, 2022 [facility] HEMOGLOBIN A1C Specimen Typ e: BLOOD [...] May 29, 2020 05:02 AM Reporting Lab: [facility] [address] [facility] [address] Performing Lab: [facility] [address] [facility] [address] HEMOGLOBIN A1C 5.8 4.0-6.0 Jan 11, 2022 12:55 PM [facility] AST/SGOT Specim en Type: PLASMA No comment enter ed. Ordering Provid er: ADAM MORAN Report Released Date/Time: May 29, 2020 05:02 AM Reporting Lab: [facility] [address] [facility] [address] Performing Lab: [facility] [address] [facility] [address] AST/SGOT 17 <34 Jan 11, 2022 12:55 [facility] TSH W/REFLEX TO FREE Spec imen Type: PLASMA PM T4 No comment enter ed. Ordering Provid er: ADAM MORAN Report Released Date/Time: May 29, 2020 05:02 AM Reporting Lab: [facility] [address] [facility] [address] Performing Lab: [facility] [address] [facility] [address] TSH 2.28 0.35-4.94 Jan 03, 2022 09:31 [facility] .OCCULT BLOOD(FIT) Specim en Type: FECES AM No comment enter ed. Ordering Provid er: RELL ISBELL Report Released Date/Time: Jan 03, 2022 09:31 AM Reporting Lab: [facility] [address] [facility] [address] Performing Lab: [facility] [address] [place] [address] .OCCULT BLOOD(FIT) Negative Vital Signs: All taken on the encounter date This section contains inpatient and outpatient Vital Signs collected on the date of the Encounter. Date/Time Temperature Pulse Blood Respiratory SP02 Pain Height Weight Clemente dy Source Pressure Rate Mass Index Jan 11 120/81 18 /min 93 % 0 241 lb 33 [place] 2021 02:16 /min mm[Hg] IS [facility] Social History: Smoking Status (Most current) and Tobacco Use (All prior to encounter date) This section includes the most current, and the historical, smoking and tobacco-related health factors from the [facility] where the Encounter took place.Current Smoking Status This section includes the most current smoking, or tobacco-related health factor, from the [facility] facility where the Encounter took place. Date/Time Current Smoking Status Comment Facility Jan 11, 2022 02:30 PM VA-TOBACCO FORMER USER [facility] Tobacco Use History This section includes a history of the smoking, or tobacco- related health factors, that were collected on or before the date of the Encounter. The data comes from the [facility] where the Encounter took place. Date/Time Smoking Status/Tobacco Use Comment Mili lopez Jan 11, 2022 02:30 PM VA-TOBACCO QUIT 15 YRS OR MORE [facility] Mar 20, 2019 02:50 PM VA-TOBACCO FORMER USER [facility] Mar 20, 2019 02:50 PM VA-TOBACCO QUIT 15 YRS OR MORE [facility] Jan 17, 2018 03:17 PM VA-TOBACCO FORMER USER [facility] Jan 17, 2018 03:17 PM VA-TOBACCO QUIT 15 YRS OR MORE [facility] Jan 26, 2017 01:41 PM LIFETIME NON-TOBACCO USER [facility] Dec 09, 2015 08:24 AM FORMER TOBACCO USER 7Y OR GREATER [facility] Apr 19, 2010 08:36 AM FORMER TOBACCO USER 7Y OR GREATER [facility] Encounter Notes: All associated encounter notes This section contains the clinical notes associated to the Encounter. Date/Time Encounter Note(s) Provider Source Jan 11, 2022 03:31 INTERNAL MEDICINE NOTE: ADAM MORAN [facility] PM LOCAL TITLE: MEDICINE CLINIC NOTE STANDARD TITLE: INTERNAL MEDICINE NOTE DATE OF NOTE: JAN 11, 2022@15:31 ENTRY DATE: JAN 11, 2022@15:31:09 AUTHOR: ADAM MORAN EXP COSIGNER: URGENCY: STATUS: COMPLETED MEDICINE CLINIC NOTE Has ADDENDA (x)Nurse's notes reviewed from today. HARPER IQBAL is a 76 year old MALE with t he following Chief complaint: Follow up for annual comanaged care visit. HPI/ROS:Pt is a pleasant 76 y/o male here for annual comanaged care visit. Local PCP is Dr. Dowling. 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 It got infected postoperatively, and he was put on Cefadroxil. Infection reportedly cleared, but james steiner got C dif as a result. Will add to allergy list. 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 Reports positive cologuard through Dr. Dowling for which Dr. Dowling has re commended colonoscopy. Is enrolled in CONFIRM study here and had negative FIT te st earlier this year. Wonders what to do with these conflicting results. This newswriter advised colonoscopy; pt will do this locally. This newswriter will alert CONFIRM study RN to this situation for her information. Also follows with local Urologist in [place] for elevated PSA. Today's result still elevated, slightly increased from l ast year, agrees to report today's value to local Urolo gist and arrange follow up. Does all of these local consults using his outside insurance. Has persistent erythrocytosis for which has had evaluation through [facility] and this newswriter. 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 Did have sleep study done April 2019 which ernesto wed severe obstructive sleep apnea. Has until now firmly refused to consider treatment for this as his father had bad experience with CPAP. Adonay martinez ssion about this again this visit, and patient is now agreeable to at least try ing CPAP. This newswriter will place sleep med consult. BP under acceptable control here an d at home on current regimen. AAA screen negative 2015. LDL at goal this visit on no medications. Declines COVID booster at this time. No other concerns th is visit. Active problems - Computerized Problem List is t he source for the followin. Benign essential hypertension (SNOMED CT 120 1005) 2. Health Maintenance 3. Gout 4. H/O: vasectomy 5. History of tonsillectomy 6. Elevated PSA 7. Erythrocytosis 8. Basal cell carcinoma of skin - 2017 R Nose. 9. Obstructive sleep apnea of adult 10. Hyperlipidemia Tobacco: () Pt smokes or uses tobacco products and was c ounseled to d/c. The patient was offered medication to assist wi th smoking cessation. The patient was also offered a referral to a [facility] cessation program. () Pt is not using tobacco products now but has used them in the past year. (Pt counseled to remain abstinent.) (x) Pt hasn't used tobacco products for a year or more. () Pt has never used tobacco products. Allergies: HCTZ HYDROCHLOROTHIAZIDE (Dec 11, 2015) METOPROLOL (Mar 12, 2018) CEFADROXIL (Jan 11, 2022) Active and Recently Outpatient Medicatio ns (including Supplies): Inactive Outpatient Medications Status 1) KETOCONAZOLE 2% SHAMPOO SHAMPOO SCALP, LATHER FOR 5 MINUTES THEN RINSE 3 [id number]-[id number] FOR SEBORRHEA Active Non-VA Medications Status 1) Non-VA ALLOPURINOL TAB MOUTH ACTIVE 2) Non-VA AMLODIPINE BESYLATE 10MG TAB 5MG MOUTH ACTIVE 3) Non-VA ASPIRIN 325MG TAB 325 MG MOUTH EVERY D AY ACTIVE 4) Non-VA LISINOPRIL 40MG TAB 40MG MOUTH EVERY D AY ACTIVE 5) Non-VA MULTIVITAMIN CAP/TAB 1 TABLET MOUTH EV AMADOR DAY ACTIVE 6) Non-VA NAPROXEN 250MG TAB 125MG MOUTH NEED ED ACTIVE 7 Total Medications MEDICATION RECONCILIATION Outpatient At this visit I have reviewed the medication li st, and discussed relevant medications with the patient/surrogate . An updated patient medication list was given to the participant(s). No Change Family/Social History: (x) Not applicable to tod ay's visit. EXAM: VS: Temp: 98.2 F [36.8 C] (12/22/2020 07:50) BP: 120/81 (01/11/2022 14:16) Pulse:92 (01/11/2022 14:16) Resp: 18 (01/11/2022 14:16) BMI: 33.2 Pain: 0 (01/11/2022 14:16) Weight: WEIGHTS IN LAST 6 MONTHS: 241 (JAN 11, 2022@14:16:34) General Appearance: pleasant, masked, obese eld erly male, no distress Mental Status: no specific deficits noted this visit. 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 HEMOGLOBIN A1C 5.8 % 4 .0 - 6.0 !! Indicates COMMENTS AVAILABLE...Refer to Inter im Lab Report. Lipids: CHOLESTEROL 168 (01/11/22) HDL 39 L (01/11/22) LDL CALCULATION 98 (01/11/22) MEASURED LDL____ TRIGLYCERIDE____ SMA-7: SODIUM 140 (01/11/22) POTASSIUM 4.3 (01/11/22) CHLORIDE 109 H (01/11/22) CO2 22 (01/11/22) UREA NITROGEN____ CREATININE 1.0 (01/11/22) GLUCOSE 101 H (01/11/22) CBC: WBC 5.01 (01/11/22) HGB 19.1 H (01/11/22) HCT 56.0 H (01/11/22) MCV 87.8 (01/11/22) PLT 202 (01/11/22) LFTs: SGOT 17 (01/11/22) SGPT 22 (01/11/22) TSH 2.28 (01/11/22) No data available PSA 6.43 H SERUM (01/11/22 12:55) 5.97 H SERUM (05/20/20 08:18) 6.42 H SERUM (05/20/20 08:18) 8.53 H SERUM (04/02/19 11:16) 6.00 H PLASMA (03/06/18 13:17) 5.17 H PLASMA (01/26/17 15:17) lab results reviewed in detail with pt at time of visit. He understands that automated letter will be forthcoming and will sh are these results with appropriate local providers. Assessment and Plan: 1. Annual comanaged care visit: overall doing we ll. Follows with local urologist, Ortho and Urologist (using outside in surance) as outlined above. Agrees to trial CPAP, will p avee consult. Has had full eval for erythrocystosis, which is felt by [facility] to be secondary, likely related to untreated sleep apnea. Agrees to share latest PSA value with [facility] urologist. Had conflicting FIT (negative) versus cologuard (positiv e) results as outlined above, plans to complete colonoscopy locally as detailed above. Will alert CONFIRM study RN coordinator to this note for her information and follow up. Declines COVID booster. AAA screen negative 2015. Will plan RTC one year, sooner if indicated. (x) Patient/Caregiver indicates readiness to klaus rn, verbalizes understanding, agreement and satisfaction with the treatment pl an. Patient/Caregiver doesn't have any further questions today. () /Caregiver indicates readiness to lear n and has been instructed on action, dose, frequency, and side effects of the medication. [place]/Caregiver verbalizes understanding. /hans MORAN MD STAFF PHYSICIAN Signed: 01/20/2022 05:59 Receipt Acknowledged By: 2022 08:44 /hans CAMPBELL BA, RN REGISTERED NURSE 2022 ADDENDUM STATUS: COMPLETED If the participant has a positive fit even out o f the study, he should, if healthy enough, get a colono scopy. If that is what you decide is right for him, please order one. Thanks for letting me know. /hans CAMPBELL BA, RN REGISTERED NURSE Signed: 2022 08:45 Receipt Acknowledged By: 2022 10:42 /hans MORAN MD STAFF PHYSICIAN 2022 ADDENDUM STATUS: COMPLETED Colonoscopy is proceeding lo fco through pt's outside insurance. Just alerting study for proper record keeping. /hans MORAN MD STAFF PHYSICIAN Signed: 2022 10:43 Receipt Acknowledged By: * AWAITING SIGNATURE * ALICIA CAMPBELL Jan 11, 2022 02:03 INTERNAL MEDICINE OUTPATIENT NOTE: Lenny DAMON [facility] LOCAL TITLE: MEDICINE CLINIC NURSING NOTE STANDARD TITLE: INTERNAL MEDICINE OUTPATIENT NOT E DATE OF NOTE: JAN 11, 2022@14:03 ENTRY DATE: JAN 11, 2022@14:03:46 AUTHOR: FAIZA DAMON COSIGNER: URGENCY: STATUS: COMPLETED TYPE OF VISIT: Appointment Check In Type of appointment: In-person appointment REASON FOR VISIT: annual check-up ALLERGIES: HCTZ HYDROCHLOROTHIAZIDE (Dec 11, 2015) METOPROLOL (Mar 12, 2018) Vital Signs: Blood Pressure: 120/81 (01/11/2022 14:16) Pulse: 92 (01/11/2022 14:16) Respiration: 18 (01/11/2022 14:16) Temperature: 98.2 F [36.8 C] (12/22/2020 07:50) Weight: 241 lb [109.32 kg] (01/11/2022 14:16) Height: 71.5 in [181.6 cm] (06/03/2019 09:54) BMI: 33.2 Pain: 0 (01/11/2022 14:16) PAIN SCREEN: Patient is not having significant pain that the y wish to discuss with their provider today. MEDICATION Over the Counter/Herbal Medications: The patient states that they take some outside medications and/or herbals. Suicide Screen: C-SSRS Screening [place] Suicide Severity Rating Scale (C-SSRS) screener 1. Over the past month, have you wished you wer e or wished you could go to sleep and not wake up? No 2. Over the past month, have you had any actual thoughts of killing yourself? No 3. Over the past month, have you been thinking about how you might do this? Response not required due to responses to other questions. 4. Over the past month, have you had these thou ghts and had some intention of acting on them? Response not required due to responses to other questions. 5. Over the past month, have you started to wor k out or worked out the details of how to kill yourself? Response not required due to responses to other questions. 6. If yes, at any time in the past month did yo u intend to carry out this plan? Response not required due to responses to other questions. 7. In your lifetime, have you ever done anythin g, started to do anything, or prepared to do anything to end you r life (for example, collected pills, obtained a gun, gave away valu colton, went to the roof but didn't jump)? No 8. If YES, was this within the past 3 months? Response not required due to responses to other questions. Depression Screening: Perform PHQ-2 A PHQ-2 screen was performed. The score was 0 w hich is a negative screen for depression. Over the past two weeks, how often have you bee n bothered by the following problems? 1. Little interest or pleasure in doing things Not at all 2. Feeling down, depressed, or hopeless Not at all Alcohol Use Screen (AUDIT-C): Alcohol Screen: SCREEN FOR ALCOHOL (AUDIT-C) An alcohol screening test (AUDIT-C) was negativ e (score=3). 1. How often did you have a drink containing al cohol in the past year? Two to three times per week 2. How many drinks containing alcohol did you h ave on a typical day when you were drinking in the past year? One or two drinks 3. How often did you have six or more drinks on one occasion in the past year? Never PTSD Screening: PC-PTSD-5 A PTSD screening test (PC-PTSD-5) was negative (score=0). Have you ever had any experience that was so fr ightening, horrible or upsetting that, IN THE PAST MONTH, you: Have you ever experienced this kind of event? NO 1. Had nightmares about the event(s) or thought about the event(s) when you did not want to? Response not required due to responses to other questions. 2. Tried hard not to think about the event(s) o r went out of your way to avoid situations that reminded you of the ev ent(s)? Response not required due to responses to other questions. 3. Been constantly on guard, watchful, or easil y startled? Response not required due to responses to other questions. 4. [place] numb or detached from people, activitie s, or your surroundings? Response not required due to responses to other questions. 5. [place] guilty or unable to stop blaming yourse lf or others for the event(s) or any problems the event(s) may have caused? Response not required due to responses to other questions. Nursing Annual Screening: Fall History Screen During the past 12 months, have you had any fal ls? Patient does not report any falls in the past 1 2 months. MEDICATIONS: Patient is on one of the following medication c lasses: Antihypertensives, Antidepressants, Antipsychot ics, Diuretics, or Controlled substance medication used for pain. FALL RISK ADVICE: Fall Risk Advice provided. Handout entitled Fa ll Prevention At Home reviewed and given to patient and/or significan t other. Script Talk Screen Are you able to read your prescription bottles with your glasses, magnifiers or other aids? Yes or patient not taking any prescriptions. Skin Screen Patient reports any current pressure ulcers, a history of pressure ulcers, or a wound from a medical office supervisor or Patient is bed-confined or a wheelchair-user or Patient requires assistance to transfer/change position No, Skin Screen is Negative Home Abuse/Violence Screen Is your home free of abuse and violence? Yes MOVE! Program Screen Body Mass Index (BMI)= 32.5 [place]: Collection DT Specimen Test Name Result Units R ef Range 01/11/2022 12:55 BLOOD !! HEMOGLOBIN A1C 5.8 % 4.0 - 6.0 !! Indicates COMMENTS AVAILABLE...Refer to Inte rim Lab Report. [place] Hgb A1C: No data available [place] Hgb A1C: No data available Point of Care Hgb A1C: POC HGB A1C____ Outpatient Nutrition Screen Body Mass Index (BMI)= 32.5 [place]: Collection DT Specimen Test Name Result Units R ef Range 01/11/2022 12:55 BLOOD !! HEMOGLOBIN A1C 5.8 % 4.0 - 6.0 !! Indicates COMMENTS AVAILABLE...Refer to Inte rim Lab Report. [place] Hgb A1C: No data available [place] Hgb A1C: No data available Point of Care Hgb A1C: POC HGB A1C____ Is patient's BMI less than 18.5? No Does patient have swallowing, coughing, or chew ing problems affecting oral intake? No Has patient experienced unplanned weight loss o r gain greater than 10 pounds over the last 2 months? No Is patient's Hgb A1C (Glycosylated Hemoglobin) greater than 9.5? No Is patient receiving Total Parenteral Nutrition (TPN) or Tube Feedings? No Patient Health Education Screen BARRIERS/SPECIAL NEEDS: No barriers identified PREFERRED STYLE OF LEARNING: Watching something Listening Reading Client Assistive Service (EARNESTINE) Screen Does the patient require assistance with outpat ient visit? No Tobacco Use Screening: The patient is a former tobacco user. The patient quit fifteen or more years ago. Homelessness/Food Insecurity Screen: In the past 2 months, have you been living in s table housing that you own, rent, or stay in as part of a household? Y es - Living in stable housing. Are you worried or concerned that in the next 2 months you may NOT have stable housing that you own, rent, or stay in a s part of a household? No - Not worried about housing near future [facility] reports the following: Within the past 12 months, you worried whether your food would run out before you got money to buy more. Never true Within the past 12 months, the food you bought just didn't last and you didn't have money to get more. Never true /jose/ FAIZA DAMON LPN LPN Signed: 01/11/2022 14:19 Jan 11, 2022 12:51 ADVANCE DIRECTIVE: [facility]AIN[facility]OBAR [facility] LOCAL TITLE: AD NOTIFICATION AND SCREENING STANDARD TITLE: ADVANCE DIRECTIVE DATE OF NOTE: JAN 11, 2022@12:51 ENTRY DATE: JAN 11, 2022@12:51:28 AUTHOR: SHAINA ESCOBAR EXP COSIGNER: URGENCY: STATUS: COMPLETED ADVANCE DIRECTIVE NOTIFICATION: I was unable to give the patient written notifi cation of the following rights because: Comment: refused ADVANCE DIRECTIVE SCREENING NOT PERFORMED: It was not possible to perform the advance dire ctive screening because: not interested /jose/ SHAINA ESCOBAR ADVANCED MSA Signed: 01/11/2022 12:51
[2022-02-11 10:32] LABS: Albumin* 4.8 g/dL (3.3-5.0); Chloride* 104 mmol/L (96-114); Potassium* 4.9 mmol/L (3.6-5.1); Sodium* 142 mmol/L (135-149)
[2022-02-11 10:34] LABS: Creatinine* 1.1 mg/dL (0.5-1.5); Estimated Glomerular Filt Rate 70 ml/min
[2022-02-11 10:35] LABS: Alkaline Phosphatase* 74 U/L (40-150); Aspartate Amino Transferase* 26 U/L (12-35); Bilirubin Total* 0.7 mg/dL (0.1-1.5); Blood Urea Nitrogen* 14 mg/dL (7-30); Carbon Dioxide* 27 mmol/L (20-32); Glucose* 125 mg/dL (60-115); Total Protein* 7.2 g/dL (6.0-8.3)
[2022-02-11 10:36] LABS: Alanine Aminotransferase* 24 U/L (4-50); Calcium* 9.8 mg/dL (8.4-10.6)
[2022-02-11 10:45] LABS: Cholesterol* 159 mg/dL (90-199)
[2022-02-11 10:46] LABS: HDL Cholesterol* 42 mg/dL (>=40); LDL Cholesterol Calculated 96 mg/dL (<100); Triglycerides* 107 mg/dL (40-149)
[2022-02-12 16:15] LABS: Carcinoembryonic Antigen 7.6 ng/mL
== END 2022-02-11 15:22 | disposition home or self-care (01) ==
PROVIDERS: PCP Family Medicine; Visit Provider Surgery
DX: Z00.00 Encounter for general adult medical examination without abnormal findings (principal); E78.5 Hyperlipidemia, unspecified; I10 Essential (primary) hypertension; C20 Malignant neoplasm of rectum
CPT/HCPCS: 80053; 80061; 82378

== ENCOUNTER 2022-02-15 07:37 | Outpatient (CLI) | payer OTHER, SELFPAY ==
--- OUTSIDE RECORDS SUMMARY | 2022-02-15 07:40 | XMS_ITS | Encounter Summary ---
:1945 Author Organization [facility] Address [address] [place] [address] Care Team Providers Name Role Phone Kristine Brown MD Primary Care Provider Reason for Visit Reason Comments Dental Hygiene Been awhile, feels like his mouth is falling apart. No pain Encounter Details Date Type Department Care Team Description 02/14/2022 Office Visit [facility] Nory Castrejon [facility] Hygiene (Been Dentistry M, [facility] awhile, feels like his [address] mouth is falling [place], [place] apart. No pain) [phone] [phone] Social History Tobacco Use Types Packs/Day Years [...] Taken Comments Blood Pressure - - Pulse 70 02/14/2022 11:20 AM CDT Temperature - - Respiratory Rate - - Oxygen Saturation - - Inhaled Oxygen Concentration - - Weight - - Height - - Body Mass Index - - documented in this encounter Patient Instructions Patient InstructionsNory Castrejon RD - 02/14/2022 11:20 AM CDT Your next hygiene recall is due: 08/13/2022 PERSONAL DENTAL RISK REPORT FOR ARMEN IQBAL Caries (Tooth Decay) Risk low mod high ^ Risk Level: HIGH Risk Factors: Caries (tooth decay) in 3 or more teeth in the last three years. How to Reduce Your Child's Risk: Hygiene recall at 3 to 6 months. Rinse with fluoride rinse once to twice daily at times other than when brushing. We look forward to seeing Khanh at his next visit! Thank you for choosing [facility]. documented in this encounter Progress Notes Karyn Ramos DDS - 02/14/2022 11:20 AM CDT RECALL EXAM NOTE REASON FOR VISIT/CHIEF COMPLAINT: Armen is a 77 y.o. male who presents for Dental Hygiene (Been awhile, feels like his mouth is falling apart. No pain) CHART REVIEW: Reviewed with patient: Medical history, Dental history, Problem list, Periodontal charting, and Radiographs. SOFT TISSUE, HEAD AND NECK EXAMINATION: Lips: Normal Tongue: Normal Palate: Normal Throat: Normal Floor of the mouth: Normal Mucosa: Normal Head and neck: Normal TMD EVALUATION: Palpation Pain: None Joint Sounds: None Pain with Range of Motion: None OCCLUSAL EXAMINATION: Unchanged COSMETIC CONCERNS: Patient's Perception: Acceptable Dentist's Perception: Acceptable TREATMENT REVIEW AND FOLLOW-UP: Discussed the dental findings, treatment options, and prognosis withthe patient. All questions answered and informed consent was obtained. Recommended Recall Interval: Examination: 6 months Recall prophy: 6 months Planned Recall Interval: Examination: 6 months Recall prophy: 6 months Discussed non-restorable #3. Pt not interested in an implant to replace. Return for extraction #3. 12 and 13 temp fills intact. Updated tx plan for post and cores and crowns. Next Planned Visit: ext #3 Karyn Ramos DDS 02/14/2022, 12:43 PM --End of Note-- Nory Castrejon RDH - 02/14/2022 11:20 AM CDT HYGIENE PROPHY NOTE PRE-MEDICATION: Patient states they took 4 - 500 mg tabs of Amoxicillin 30 to 60 minutes prior to dental treatment as prescribed. COLLABORATIVE AGREEMENT: The patient consents to have charting, radiographs, and prophylaxis by the dental hygienist performed with the understanding that this care is not a substitute for an examination by a dentist. These activities were performed under a collaborating agreement with Tushar Head DDS (License #:[id number]) PROCEDURAL PAUSE: Patient identity verified: Yes Treatment plan/site verified with the patient: Yes Instruments/equipment verified: Yes Any medication/allergy contraindications: No PRESENTATION: Plaque: Generalized, light supra-gingival , sub-gingival, interproximal, mandibular anterior, and posterior buccal Calculus: Localized, moderate supra-gingival , sub-gingival, interproximal, mandibular anterior, andposterior buccal Stain: None Bleeding: Generalized moderate Gingival tissue: Inflamed Mucogingival concerns: Absent ACTIVITIES: Hand scale, Essential selective polishing, and Flossed all contacts PATIENT EDUCATION: Periodontal risk, OHI, Demonstrated flossing, Oral care adjuncts, and Fluoride rinse NEXT PLANNED HYGIENE VISIT: Hygiene Prophy with exam Nory Castrejon RDH 02/14/2022, 12:24 PM --End of Note-- documented in this encounter Plan of Treatment Scheduled Orders Name Type Priority Associated Order Schedule Diagnoses 3 3 SURGICAL Dental Procedures Routine 1 Occurren samuel EXTRACTION-ERUPTED starting 02/14/2022 TOOTH PROPHYLAXIS-ADULT Dental Procedures Routine 1 Occ urrences RECALL starting 2021 PERIODIC ORAL Dental Procedures Routine 1 Occurre nces EVALUATION starting 2021 [id number] Dental Procedures Routine 1 Oc currences starting 2021 TOPICAL FLUORIDE Dental Procedures Routine 1 Occu rrences VARNISH starting 2021 documented as of this encounter Procedures Procedure Name Priority Date/Time Associated Diagnosis Comme nts [id number] Routine 02/14/2022 11:20 AM Localized chron ic slight CDT periodontitis 3 FILM-PERIAPICAL Routine 02/14/2022 11:20 AM Localized chroni c slight FIRST CDT periodontitis PERIODIC ORAL Routine 02/14/2022 11:20 AM Localized chronic sl ight EVALUATION CDT periodontitis PROPHYLAXIS-ADULT Routine 02/14/2022 11:20 AM Localized chroni c slight RECALL CDT periodontitis 13 EXISTING ROOT CANAL Routine 02/14/2022 12:00 AM TREATMENT CDT 12 EXISTING ROOT CANAL Routine 02/14/2022 12:00 AM TREATMENT CDT documented in this encounter Visit Diagnoses Diagnosis Localized chronic slight periodontitis - Primary documented in this encounter Care Teams Firer Kiln Relationship Specialty Start Date End Date Kristine Brown MD PCP - General Family Practice 03/25/13 [address] [place] [address] documented as of this encounter
--- OUTSIDE RECORDS SUMMARY | 2022-02-15 07:40 | XMS_ITS | Clinical Summary ---
:1945 Author Organization [facility] Address [address] [place] [address] Care Team Providers Name Role Phone Kristine [...] for each transition of care or referral. Tipzu Allergies Active Allergy Reactions Severity Noted Date Comments Cefadroxil Other, see comments 06/02/2021 Bloody d iarrhea Oxycodone Other, see comments 11/09/2011 Patient refuses [...] on 09/03/2020 tamsulosin (FLOMAX) 0.4 MG CAPS 0 11/26/19 20 Active capsule amoxicillin (AMOXIL) 500 MG Take 1,000 mg by mouth two 0 02/10/2022 Active capsule times a day. GAVILYTE-G 236 g oral solution Take by mouth. 0 12/24 Active Active Problems Problem Noted Date Prediabetes 02/16/2015 History of basal cell cancer 01/16/2015 HTN (hypertension) 04/09/2013 Overview: 11/06/15 Increase: Amlodipine to 10 mg. Soraida Epperson RN 11/27/2015, 4:49 PM ; HTN (hypertension) ([facility]) Nurse managed Encounters Date Type Specialty Care Team Description 02/14/2022 Office Visit General Dentistry Nory Castrejon Den tal Hygiene (Been [facility] awhile, feels l faustino his mouth is fallin g apart. 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 Oxygen Saturation - - Inhaled Oxygen Concentration - - Weight 108 kg (238 lb) 07/26/2017 8:48 AM CDT Height 182.9 cm (6') 2017 2:30 PM CDT Body Mass Index 32.28 2017 2:30 PM CDT Plan of Treatment Health Maintenance Due Date [...] on patient's age to complete this topic Procedures Procedure Name Priority Date/Time Associated Diagnosis Comme nts 3 FILM-PERIAPICAL Routine 02/14/2022 11:20 AM Localized chroni c slight FIRST CDT periodontitis [id number] Routine 02/14/2022 11:20 AM Localized chron ic slight CDT periodontitis PROPHYLAXIS-ADULT Routine 02/14/2022 11:20 AM Localized chroni c slight RECALL CDT periodontitis PERIODIC ORAL Routine 02/14/2022 11:20 AM Localized chronic sl ight EVALUATION CDT periodontitis 13 EXISTING ROOT CANAL Routine 02/14/2022 12:00 AM TREATMENT CDT 12 EXISTING ROOT CANAL Routine 02/14/2022 12:00 AM TREATMENT CDT from Last 3 Months Insurance Payer Benefit Plan Subscriber ID Effective Phone Address Typ e / Group Dates [employer] [id number] 2018-Pre [address] mmercial DENTAL PLAN SENIORS sent [id number] [place] [address] [employer] [id number] 2014-Pre [phone] edicare sent [id number] MEDICARE MEDICARE [id number] 2012-Pr [phone] Medica re MANAGED CARE esent [id number] [employer] HP PREVENTIVE [id number] 2020-Pre Preventive DENTAL PLAN SR PREV sent ADVANTAGE [facility] HP PREVENTIVE [id number] 2021-Pre Preventive DENTAL PLAN SR PREVENTIVE sent DENTAL [address] (Home) [phone] [place] (Work) [phone] Armen Crump Personal/Family Self [address] (Home) [place] [address] Armen Crump Personal/Family Self [address] (Home) [place] [address] Care Teams Janitor Head Relationship Specialty Start Date End Date Kristine Brown MD PCP - General Family Practice 03/25/13 [address] [place] [address]
--- OUTSIDE RECORDS SUMMARY | 2022-02-15 07:40 | XMS_ITS | Encounter Summary ---
:1945 Author Organization [facility] Address [address] [place] [address] Care Team Providers Name Role Phone Kristine Brown MD Primary Care Provider Reason for Visit Reason Comments Problem Focused Exam Fractured tooth or filling Encounter Details Date Type Department Care Team Description 01/04/2021 Office Visit [facility] Brenna Reyes P roblem Focused Exam Dentistry [place] [address] [address] filling ) [place] [address] [phone] Social History Tobacco Use Types Packs/Day Years [...] April of this year Diagnosis: Defective dental religion (primary encounter diagnosis) Prognosis: #12, #13 Favorable [...] None used, procedure was minimally invasive. SEDATIVE CONGREGATION, #12, #13: Prepared with complete caries removal [...] documented in this encounter Plan of Treatment Not on filedocumented as of this encounter Procedures Procedure Name Priority Date/Time Associated Diagnosis Comme nts FILM-PERIAPICAL FIRST Routine 01/04/2021 12:00 PM Defective de ntal CDT religion 13 MODBL SEDATIVE Routine 01/04/2021 12:00 PM Defective dental FILLING CDT religion 12 DOBL SEDATIVE Routine 01/04/2021 12:00 PM Defective dental FILLING CDT religion LIMITED ORAL EVALUATION Routine 01/04/2021 12:00 PM Defective dental CDT religion 13 EXISTING PFM CROWN Routine 01/22/2008 11:00 PM CDT 19 EXISTING FULL GOLD Routine 01/22/2008 11:00 PM CROWN CDT 12 DO EXISTING AMALGAM Routine 01/22/2008 11:00 PM FILLING CDT documented in this encounter Visit Diagnoses Diagnosis Defective dental religion - Primary Unspecified unsatisfactory religion o f tooth documented in this encounter Care Teams Moss Gatherer Relationship Specialty Start Date End Date Kristine Brown MD PCP - General Family Practice 03/25/13 [address] [place] [address] documented as of this encounter
--- OUTSIDE RECORDS SUMMARY | 2022-02-15 07:41 | XMS_ITS | Encounter Summary ---
:1945 Author Organization [facility] Address [address] [place] [address] Care Team Providers Name Role Phone Kristine Brown MD Primary Care Provider Reason for Visit Reason Comments Other crown came off Encounter Details Date Type Department Care Team Description 06/11/2018 Telephone [place] Karyn Foster, Other (crown came off) Dentistry [facility] [address] [facility] [address] [place] [address] [place], [place] [phone] (Wo rk) Social History Tobacco Use Types [...] causing your problem? [] Accident [] Lost Uatsdin [] Broken Tooth [] Chipped Tooth [] Toothache Location: [x] Upper Left [] Lower Left [] Upper Front [] Lower Front [] Upper Right [] Lower Right Comments: Hannibal came off 3. What kind of discomfort [...] Yes Comments: Will bring the crown with E MINER documented in this encounter Plan of Treatment Not on filedocumented as of this encounter Visit Diagnoses Not on filedocumented in this encounter Care Teams Hockey Instructor Relationship Specialty Start Date End Date Kristine Brown MD PCP - General Family Practice 03/25/13 [address] [place] [address] documented as of this encounter
--- OUTSIDE RECORDS SUMMARY | 2022-02-15 07:41 | XMS_ITS | Encounter Summary ---
:1945 Author Organization [facility] Address [address] [place] [address] Care Team Providers Name Role Phone Kristine Brown MD Primary Care Provider Encounter Details Date Type Department Care Team Description 01/25/2017 Telephone [facility] 401 Emma Britton MD Rheumatology Clinic [address] [place], [place] [address] [place] [address] [phone] Social History Tobacco Use Types Packs/Day Years [...] Elana Coughlin CMA 01/25/2017, 8:23 AM Prateek Britton MD - 01/25/2017 8:16 AM CDT Please [...] filedocumented as of this encounter Visit Diagnoses Diagnosis Gout, unspecified cause, unspecified chr onicity, unspecified site - Primary documented in this encounter Care Teams Beverage Manager Relationship Specialty Start Date End Date Kristine Brown MD PCP - General Family Practice 03/25/13 [address] [place] [address] documented as of this encounter
--- OUTSIDE RECORDS SUMMARY | 2022-02-15 07:41 | XMS_ITS | Encounter Summary ---
:1945 Author Organization [employer] Address [address] [place] [address] Care Team Providers Name Role Phone Kristine Brown MD Primary Care Provider Reason for Referral Consult/Transfer Care (Routine) - Closed Specialty Diagnoses / Procedures Referred By Contact Refer red To Contact Family Medicine Diagnoses Essential hypertension (HRC) Prateek Britton MD Family Practice [address] [address] [place] [address] [place] [address] Phone: Fax: Referral ID Status Reason Start Date Expiration Date Visits Requ ested Visits Authorized [id number] Closed 10/26/2016 01/25/2018 1 1 Scheduling Instructions Your provider has recommended an appoint ment to follow up on your high blood pressure. A home care coordinator will contact you t o assist you in setting up this appointment. If you prefer, you can contact your [facility] to schedule. There are no co-pays for medication therapy managemen t (clinical pharmacist) or nurse blood pressure checks. Reason for Visit Reason Comments Revisit Encounter Details Date Type Department Care Team Description 10/26/2016 Office Visit [facility] 401 Prateek Britton G out, unspecified cause, unspecified chronicity, unspecified site (Primary Dx); Rheumatology Clinic Essential hypertension [address] [place] [address] DARRION TRISTAN [phone] Social History Tobacco Use Types Packs/Day Years [...] encounter Progress Notes Prateek Britton MD - 10/26/2016 9:00 AM CDT [facility] Rheumatology Outpatient Consultation Report Date: 10/26/16 Reason [...] Problems Diagnosis Date Noted ??? HTN (hypertension) ([facility]) Nurse managed 04/09/2013 ??? History of [...] of bilateral DIPs, PIPs, MCP joints. 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 Knee - no joint effusion [...] in this encounter Plan of Treatment Scheduled Referrals Name Type Priority Associated Diagnoses Order S chedule Hypertension (HTN) Referral Routine Essential hypertension Ordered: 10/26/2016 Follow Up ([id number]) documented as of this encounter Visit Diagnoses Diagnosis Gout, unspecified cause, unspecified chr onicity, unspecified site - Primary Essential hypertension (HRC) Unspecified essential hypertension documented in this encounter Care Teams Melter Caster Relationship Specialty Start Date End Date Kristine Brown MD PCP - General Family Practice 03/25/13 [address] [place] [address] documented as of this encounter
--- OUTSIDE RECORDS SUMMARY | 2022-02-15 07:41 | XMS_ITS | Encounter Summary ---
:1945 Author Organization [employer] Address [address] [place] [address] Care Team Providers Name Role Phone Kristine Brown MD Primary Care Provider Reason for Visit Reason Comments EMPF lost gold crown Encounter Details Date Type Department Care Team Description 02/10/2020 Telephone [facility] YaTushar rachel EMP F (lost gold crown) Dentistry DDS [address] [facility] [address] [place], [place] [address] [place], [place] [phone] (Wo rk) Social History Tobacco Use Types [...] on filedocumented in this encounter Care Teams Hand Brim Ironer Relationship Specialty Start Date End Date Kristine Brown MD PCP - General Family Practice 03/25/13 [address] [place] [address] documented as of this encounter
--- OUTSIDE RECORDS SUMMARY | 2022-02-15 07:41 | XMS_ITS | Encounter Summary ---
:1945 Author Organization [employer] [facility] Address [address] [place] [address] Care Team Providers Name Role Phone Kristine Brown MD Primary Care Provider Reason for Visit Reason Comments Broken Tooth Encounter Details Date Type Department Care Team Description 07/11/[address] [facility] radha [place] DDS Broken Tooth Dentistry [address] [facility] [address] [place] [address] [place], [place] [address] [phone] Social History Tobacco Use Types Packs/Day Years [...] causing your problem? [] Accident [] Lost Denominational [x] Broken Tooth [] Chipped Tooth Location: [...] on filedocumented in this encounter Care Teams Airworthiness Safety Inspector Relationship Specialty Start Date End Date Kristine Brown MD PCP - General Family Practice 03/25/13 [address] [place] [address] documented as of this encounter
--- OUTSIDE RECORDS SUMMARY | 2022-02-15 07:41 | XMS_ITS | Encounter Summary ---
:1945 Author Organization [facility] Address [address] [place] [address] Care Team Providers Name Role Phone Kristine Brown MD Primary Care Provider Encounter Details Date Type Department Care Team Description 10/26/2016 Telephone [facility] 401 Emma Britton MD Rheumatology Clinic [address] [place], [place] [address] [place] [address] [phone] Social History Tobacco Use Types Packs/Day Years [...] on filedocumented in this encounter Care Teams Rental Clerk Relationship Specialty Start Date End Date Kristine Brown MD PCP - General Family Practice 03/25/13 [address] [place] [address] documented as of this encounter
--- OUTSIDE RECORDS SUMMARY | 2022-02-15 07:41 | XMS_ITS | Encounter Summary ---
:1945 Author Organization [facility] Address [address] [place] [address] Care Team Providers Name Role Phone Kristine [...] Department Care Team Description 07/12/2017 Office Visit [facility] Roberto Carlos Hernandez S, Visit for eye and vision exa m (Primary Dx); [address] OD Myopia, bilateral; [place], [place] [address] Regular astigmatism, bilater al; [phone] Presbyopia; Nuclear sclerot ic cataract of both [...] 11:10 AM CDT Thank you for choosing [facility] for your eye care needs. Many [...] the clinic in the future? Appointment Center: [phone] Eye Dept: [phone] Online Services: [email or web address] For after hours care, call the CareLine at [phone] or . We look forward to taking [...] sclerosis documented in this encounter Care Teams Clinical Statistics Manager Relationship Specialty Start Date End Date Kristine Brown MD PCP - General Family Practice 03/25/13 [address] [place] [address] documented as of this encounter
--- OUTSIDE RECORDS SUMMARY | 2022-02-15 07:41 | XMS_ITS | Encounter Summary ---
:1945 Author Organization [employer] Address [address] [place] [address] Care Team Providers Name Role Phone Kristine Brown MD Primary Care Provider Reason for Visit Reason Comments Dental Services returning call Encounter Details Date Type Department Care Team Description 05/11/2020 Telephone [facility] Tushar Head Den tal Services Dentistry DDS (returning call) [address] [facility] [address], [place] [address] [place], [place] [phone] (Wo rk) Social History Tobacco Use Types [...] AM CST Called Khanh, he saw an warpman in [place], wanted to make sure it is ok [...] priority. Tushar Head DDS 05/11/2020, 11:18 AM KMAN documented in this encounter Plan of Treatment Scheduled Orders Name Type Priority Associated Diagnoses Order S chedule 12 12 CROWN SEAT Dental Procedures Routine 1 Occu rrences starting 2020 13 13 CROWN SEAT Dental Procedures Routine 1 Occu rrences starting 2020 documented as of this encounter Visit Diagnoses Not on filedocumented in this encounter Care Teams Engraver Jewelry Relationship Specialty Start Date End Date Kristine Brown MD PCP - General Family Practice 03/25/13 [address] [place] [address] documented as of this encounter
--- OUTSIDE RECORDS SUMMARY | 2022-02-15 07:41 | XMS_ITS | Encounter Summary ---
:1945 Author Organization [facility] Address [address] [place] [address] Care Team Providers Name Role Phone Kristine Brown MD Primary Care Provider Reason for Visit Reason Comments Insurance Concerns Encounter Details Date Type Department Care Team Description 09/03/2020 Telephone [facility] Richard Head, ALONSO Insurance Concerns Dentistry [address] [place] [phone] (Wo rk) Social History Tobacco Use Types [...] on filedocumented in this encounter Care Teams Jigmaker Relationship Specialty Start Date End Date Kristine Brown MD PCP - General Family Practice 03/25/[address] [place] [address] documented as of this encounter
--- OUTSIDE RECORDS SUMMARY | 2022-02-15 07:41 | XMS_ITS | Encounter Summary ---
:1945 Author Organization [facility] Address [address] [place] [address] Care Team Providers Name Role Phone Kristine Brown MD Primary Care Provider Reason for Referral Dental (Routine) - Closed Specialty Diagnoses / Procedures Referred By Contact Refer red To Contact Diagnoses Fracture of crown and root of tooth Karyn Ramos DDS [address] [place], [place] [address] Referral ID Status Reason Start Date Expiration Date Visits Requ ested Visits Authorized [id number] Closed 07/11/2017 01/07/2018 1 1 Scheduling Instructions [...] Department Care Team Description 07/11/2017 Office Visit [facility] Karyn Foster oblem Focused Exam Dentistry [place] [address] [place] [address] [facility] starting to hurt) [place] [address] [phone] (Wo rk) Social History Tobacco Use Types Packs/Day Years Used Date Smoking Tobacco: Former Cigarettes 1 9 Quit : 04/24/1971 Smokeless Tobacco: Never Alcohol Use Standard Drinks/Week Comments Yes 4.2 (1 standard drink = 0.6 oz pure alco hol) occ Sex Assigned at Date Recorded Not on file documented as of this encounter Progress Notes Karyn Ramos DDS - 07/11/2017 1:10 PM CDT [...] abscess Periapical abscess without sinus Fractured dental christian with loss o f material Fractured dental restorative material wi th loss of material documented in this encounter Care Teams Offset Press Operator Apprentice Relationship Specialty Start Date End Date Kristine Brown MD PCP - General Family Practice 03/25/13 [address] [place] [address] documented as of this encounter
--- OUTSIDE RECORDS SUMMARY | 2022-02-15 07:41 | XMS_ITS | Encounter Summary ---
:1945 Author [facility] Address [address] [place] [address] Care Team Providers Name Role Phone Kristine Brown MD Primary Care Provider Encounter Details Date Type Department Care Team Description 07/26/2017 Lab Visit [facility] Laboratory [address] [facility] [place], [place] [id number] Social History Tobacco Use Types Packs/Day Years Used Date Smoking Tobacco: Former Cigarettes 1 9 Quit : 04/24/1971 Smokeless Tobacco: Never Alcohol Use Standard Drinks/Week Comments Yes 4.2 (1 standard drink = 0.6 oz pure alco hol) occ Sex Assigned at Date Recorded Not on file documented as of this encounter Plan of Treatment Not on filedocumented as of this encounter Visit Diagnoses Not on filedocumented in this encounter Care Teams Slate Roofer Helper Relationship Specialty Start Date End Date Kristine Brown MD PCP - General Family Practice 03/25/13 [address] [place] [address] documented as of this encounter
--- OUTSIDE RECORDS SUMMARY | 2022-02-15 07:41 | XMS_ITS | Encounter Summary ---
:1945 Author Organization [facility] Address [address] [place] [address] Care Team Providers Name Role Phone Kristine Brown MD Primary Care Provider Reason for Referral Dental (Routine) - Closed Specialty Diagnoses / Procedures Referred By Contact Refer red To Contact Diagnoses Dental caries into pulp Pulpal necrosis Tushar Head DDS [address] [place], [place] [address] Referral ID Status Reason Start Date Expiration Date Visits Requ ested Visits Authorized [id number] Closed 03/16/2020 06/15/2021 1 1 Scheduling Instructions Your provider has recommended an appoint ment for endodontic services within [facility]. You may c all one of the clinics below to schedule an appointment. [place] [phone] [place] [phone] LA CHARGER Reason for Visit Reason Comments Endodontic Services endo #12 Encounter Details Date Type Department Care Team Description 03/16/2020 Office Visit [facility] Richard Head DDS [address] [place], [place] [id number] Endodontic Services Dentistry [place], Exam (endo #12) [address] [place], [place] [phone] Social History Tobacco Use Types Packs/Day Years [...] of thetooth. ?? Crack or fracture of tooth/mandaeism during treatment may require a new mandaeism or possiblyresult in loss of the tooth [...] months or more. ?? Timely and definitive mandaeism of the tooth is often required once [...] and unable to negotiate canals--calcified. Recommend see geopolitics teacher for completion Irrigation: Sodium hypochlorite 2.5-5.25% : [...] dam Canal Location: Facial, Lingual Used apex gate services supervisor, unable to get to apex, approx 4mm short in both canals Irrigation: Sodium hypochlorite 2.5-5.25% : Dried with paper points Access closed with glass ionomer over cotton Total radiographs required for treatment: 0 Patient presented with: No fracture noted Rec follow up with geopolitics teacher to complete POST-OP INSTRUCTIONS: Patient was advised of normal post-operative instructions and need to completeendo tx or risk pain/infection. Care was assisted by karoline Araya Planned Visit: op , endo visit, referral in place for Tushar Head DDS 03/16/2020, 10:35 AM --End of Note-- 7:16 AM LA CHARGER documented in this encounter Plan of Treatment Scheduled Referrals Name Type Priority Associated Diagnoses Order S chedule Endodontics Consult Referral Routine Dental julisa s into pulp Ordered: 03/16/2020 Pulpal necrosis documented as of this encounter Procedures Procedure Name Priority Date/Time Associated Diagnosis Comme nts DIAGNOSTIC CASTS Routine 03/16/2020 7:10 AM CUPOLA CHARGER Dental attriti on, excessive UNSPEC ENDO PROC BY REP Routine 03/16/2020 7:10 AM CUPOLA CHARGER Dental caries extending into inner third of dentin Pulpal necrosis 12 SEDATIVE FILLING Routine 03/16/2020 7:10 AM CUPOLA CHARGER Dental caries extending into inner third of dentin Dental caries into pulp documented in this encounter Visit Diagnoses Diagnosis Dental caries extending into inner third of dentin - Primary Dental caries into pulp Dental caries extending into pulp Dental attrition, excessive Excessive attrition of teeth, unspecifie d Pulpal necrosis Necrosis of dental pulp documented in this encounter Care Teams Teacher Early Childhood Development Relationship Specialty Start Date End Date Kristine Brown MD PCP - General Family Practice 03/25/13 [address] [place] [address] documented as of this encounter
--- OUTSIDE RECORDS SUMMARY | 2022-02-15 07:41 | XMS_ITS | Encounter Summary ---
:1945 Author Organization [facility] Address [address] [place] [address] Care Team Providers Name Role Phone Kristine Brown MD Primary Care Provider Reason for Referral Consult/Transfer Care (Routine) - Closed Specialty Diagnoses / Procedures Referred By Contact Refer red To Contact Diagnoses Essential hypertension (HRC) [place] [address] [place], [place] [address] Referral ID Status Reason Start Date Expiration Date Visits Requ ested Visits Authorized [id number] Closed 11/07/2016 02/06/2018 1 1 Scheduling Instructions Your provider has recommended an appoint ment with a [facility] nurse. A program scheduler will contact you within the next 3 in ess days to assist you in setting up this appointment. Reason for Visit Reason Comments FOLLOW-UP,BP Consult/Transfer Care (Routine) - Closed Specialty Diagnoses / Procedures Referred By Contact Refer red To Contact Family Medicine Diagnoses Essential hypertension (HRC) Prateek Britton MD [address] [place] [address] Phone: Fax: Referral ID Status Reason Start Date Expiration Date Visits Requ ested Visits Authorized [id number] Closed 10/26/2016 01/25/2018 1 1 Encounter Details Date Type Department Care Team Description 11/07/2016 Office Visit [facility] Kristine Brown MD Essential hypertension Practice [address] [facility] (Primary Dx) [address] [place] [address] [phone] Social History Tobacco Use Types Packs/Day Years [...] Name Type Priority Associated Diagnoses [facility] Referral Routine Essential hypertension Ordered: 11/07/2016 ADULT/PEDS [[id number]] documented as of this encounter Visit Diagnoses Diagnosis Essential hypertension (HRC) - Primary Unspecified essential hypertension documented in this encounter Care Teams Vice President Education Relationship Specialty Start Date End Date Kristine Brown MD PCP - General Family Practice 03/25/13 [address] [place] [address] documented as of this encounter
--- OUTSIDE RECORDS SUMMARY | 2022-02-15 07:41 | XMS_ITS | Encounter Summary ---
:1945 Author Organization [employer] Address [address], [place] [address] Care Team Providers Name Role Phone Kristine Brown MD Primary Care Provider Encounter Details Date Type Department Care Team Description 2017 Lab Visit Specialty Center Gout, un specified cause, Laboratory unspecified chronicity, [address] unspecified site [place], [place] [phone] Social History Tobacco Use Types Packs/Day Years [...] 2017 7:18 PM C DT Performed at [address] ??[id number] Prateek Britton MD LAB_1 Performing Organization Address City/[facility] Code Phon e Number [facility] [phone] Creatinine / GFR (2017 2:56 PM CDT) [...] 2017 7:18 PM C DT Performed at [facility], [address] [place] [address] ??[phone] Prateek Britton MD LAB_1 Performing Organization Address City/[facility] Phon e Number [facility] [phone] ALT (SGPT) (2017 2:56 PM CDT) athologist Signature ALT (SGPT) 25 0 - 55 U/L [facility] Specimen Anatomical Collection Method Collection Time Receive d Time (Source) Location / / Volume Laterality 2017 2:56 PM 7 3:01 CDT PM CDT Narrative [facility] - 2017 7:18 PM C DT Performed at [facility], [address] [place] [address] ??[id number] Prateek Britton MD LAB_1 Performing Organization Address [facility] Phon e Number [facility] [phone] AST (2017 2:56 PM CDT) P athologist Signature AST (SGOT) 19 10 - 40 U/L [facility] Specimen Anatomical Collection Method Collection Time Receive d Time (Source) Location / / Volume Laterality 2017 2:56 PM 7 3:01 CDT PM CDT Narrative [facility] - 2017 7:18 PM C DT Performed at [facility], [address] [place] [address] ??[address] Prateek Britton MD LAB_1 Performing Organization Address City/[facility] Phon e Number [facility] [phone] (ABNORMAL) Complete Blood Count-W/Diff (2017 2:56 PM [...] [facility] Lymph 20 % [facility] Manati 9 % [facility] Eos 2 % [facility] Baso 0 % [facility] Neutrophil 3.2 1.8 - 7.7 [facility]ul [facility] Lymph Absolute 0.9 (L) 1.0 - 4.8 [facility] Manati Absolute 0.4 0.1 - 0.7 [facility] k/ul [...] 2017 7:26 PM C DT Performed at [facility], [address] [place] [address] ??[address] Prateek Britton MD LAB_1 Performing Organization Address City/State/ZIP Code Phon e Number [facility] [phone] documented in this encounter Visit Diagnoses Diagnosis Gout, unspecified cause, unspecified chr onicity, unspecified site documented in this encounter Care Teams Cerner Analyst Relationship Specialty Start Date End Date Kristine Brown MD PCP - General Family Practice 03/25/13 [address] [place] [address] documented as of this encounter
--- OUTSIDE RECORDS SUMMARY | 2022-02-15 07:41 | XMS_ITS | Encounter Summary ---
:1945 Author Organization [employer] Address [address] [place] [address] Care Team Providers Name Role Phone Kristine Brown MD Primary Care Provider Encounter Details Date Type Department Care Team Description 08/17/2017 Refill Order [facility] Kristine Brown MD Practice [address] [place] [address] [place] [address] [phone] Social History Tobacco Use Types Packs/Day Years [...] You can schedule your appointment online at [employer] or by calling the appointment center at the phone number listed above. Thank you for choosing [employer]. Allison Solis RN [facility] Nurs[facility] Powered by [employer], Reference: [id number], 08/17/2017 4:01:06 PM CDT, Pool: ABARCA RN ([id number]) documented in this encounter Plan of Treatment Not on filedocumented as of this encounter Visit Diagnoses Diagnosis Encounter for long-term (current) use of medications - Primary Encounter for long-term (current) use of other medications documented in this encounter Care Teams Flight Security Specialist Relationship Specialty Start Date End Date Kristine Brown MD PCP - General Family Practice 03/25/13 [address] [place] [address] documented as of this encounter
--- OUTSIDE RECORDS SUMMARY | 2022-02-15 07:41 | XMS_ITS | Encounter Summary ---
:1945 Author Organization [facility] Address [address] [place] [address] Care Team Providers Name Role Phone Kristine Brown MD Primary Care Provider Encounter Details Date Type Department Care Team Description 10/26/2016 Telephone Specialty Center 401 Emma Britton MD Rheumatology Clinic [address] [place] [address] [place] [address] [phone] Social History Tobacco Use Types Packs/Day Years [...] on filedocumented in this encounter Care Teams Government Auditor Relationship Specialty Start Date End Date Kristine Brown MD PCP - General Family Practice 03/25/13 [address] [place] [address] documented as of this encounter
--- OUTSIDE RECORDS SUMMARY | 2022-02-15 07:41 | XMS_ITS | Encounter Summary ---
:1945 Author Organization [facility] Address [address] [place] [address] Care Team Providers Name Role Phone Kristine Brown MD Primary Care Provider Reason for Visit Reason Comments Lost Nondenominational Encounter Details Date Type Department Care Team Description 01/04/2021 Telephone [place] Richard Lau, DDS Lost Nondenominational Dentistry [address] [facility] [address] [place] [address] [place], [place] [address] [phone] Social History Tobacco Use Types Packs/Day Years [...] on filedocumented in this encounter Care Teams Geriatric Assistant Relationship Specialty Start Date End Date Kristine Brown MD PCP - General Family Practice 03/25/13 [address] [place], [place] [address] documented as of this encounter
--- OUTSIDE RECORDS SUMMARY | 2022-02-15 07:41 | XMS_ITS | Encounter Summary ---
:1945 Author Organization [facility] Address [address] [place] [address] Care Team Providers Name Role Phone Kristine Brown MD Primary Care Provider Reason for Visit Reason Comments Refill Encounter Details Date Type Department Care Team Description 10/31/2016 Telephone Specialty Center 401 Emma Britton MD Refill Rheumatology Clinic [address] [place] [address] [place] [address] [phone] Social History Tobacco Use Types Packs/Day Years [...] and all questions answered. Fern Gunn CMA (AAMN) Galileo Rodarte MD - 10/31/2016 12:19 PM [...] on filedocumented in this encounter Care Teams Boat Loader Relationship Specialty Start Date End Date Kristine Brown MD PCP - General Family Practice 03/25/13 [address] [place] [address] documented as of this encounter
--- OUTSIDE RECORDS SUMMARY | 2022-02-15 07:41 | XMS_ITS | Encounter Summary ---
:1945 Author Organization [facility] Address [address] [place] [address] Care Team Providers Name Role Phone Kristine Brown MD Primary Care Provider Reason for Visit Reason Comments Revisit Consult/Transfer Care (Routine) - Closed Specialty Diagnoses / Procedures Referred By Contact Refer red To Contact Diagnoses Essential hypertension (HRC) [place] [address] [place], [place] [address] Referral ID Status Reason Start Date Expiration Date Visits Requ ested Visits Authorized [id number] Closed 11/07/2016 02/06/2018 1 1 Encounter Details Date Type Department Care Team Description 2017 Office Visit Specialty Center 401 Prateek Britton G out, unspecified Rheumatology Clinic cause, unspecified [address] chronicity, [place] [address] [place], [place] unspecified site [phone] (Primary Dx) Social History Tobacco Use Types [...] Britton MD - 2017 2:[address] [facility] Rheumatology Outpatient Consultation Report Date: 01/24/17 Reason [...] Problems Diagnosis Date Noted ??? HTN (hypertension) ([facility]) 04/09/2013 ??? History of basal cell [...] of bilateral DIPs, PIPs, MCP joints. Normal hand-desk operator without pain Knee - no joint effusion [...] Referral Routine Essential hypertension Ordered: 11/07/2016 ADULT/PEDS [[id number]] documented as of this encounter Visit Diagnoses Diagnosis Gout, unspecified cause, unspecified chr onicity, unspecified site - Primary documented in this encounter Care Teams Dining Services Manager Relationship Specialty Start Date End Date Kristine Brown MD PCP - General Family Practice 03/25/13 [address] [place] [address] documented as of this encounter
--- OUTSIDE RECORDS SUMMARY | 2022-02-15 07:41 | XMS_ITS | Encounter Summary ---
:1945 Author Organization [facility] Address [address] [place] [address] Care Team Providers Name Role Phone Kristine Brown MD Primary Care Provider Reason for Visit Reason Comments Medication Request colchicine 0.6mg tablet (ple ase resend for capsule form Encounter Details Date Type Department Care Team Description 08/01/2016 Telephone Specialty Center 401 Emma Britton MD Medication Request Rheumatology Clinic [address] (colchicine 0.6mg [address] [place], [place] tablet ([place] [address] for capsule form ) [phone] Social History Tobacco Use Types Packs/Day Years [...] Primary documented in this encounter Care Teams Supervisory It Specialist Relationship Specialty Start Date End Date Kristine Brown MD PCP - General Family Practice 03/25/13 [address] [place] [address] documented as of this encounter
--- OUTSIDE RECORDS SUMMARY | 2022-02-15 07:41 | XMS_ITS | Encounter Summary ---
:1945 Author Organization [facility] Address [address] [place] [address] Care Team Providers Name Role Phone Kristine Brown MD Primary Care Provider Reason for Visit Reason Comments Dental Conversion Legacy EDR to [place] convers ion Encounter Details Date Type Department Care Team Description 09/29/2016 Dental Conversion [facility] [facility] Prashant Eitan, [place] Montserrat Sahu, DDS [address] [facility] [address] [place], [place] [address] [place], [place] [phone] [address] Social History Tobacco Use Types Packs/Day Years [...] Armen needs to sign a [place] Estimate IUM CANCELLATION CLERK Interface, In Edr Dental Conversion - 11/16/2012 [...] convienient. I stated someone from the front end architect would be calling in 10-20 minutes to schedule the appointment. I told him we appreciated his patience and he stated he was very happy with how things were being handled. I told him he could personally call me with any questions or concerns he had. Miscellaneous - Interface, In Edr Dental Conversion - 05/04/2015 12:00 AM PREMIUM CANCELLATION CLERK 05/04/2015: RX Called To Pharmacy: Rx: amoxicillin transmitted to [facility] pharmacy. Pt to follow up w/ Dr. Ram if symtpoms persist. IUM CANCELLATION CLERK Miscellaneous - Interface, In Edr Dental Conversion - 05/04/2015 12:00 AM PREMIUM CANCELLATION CLERK 05/04/2015: Outgoing Phone Call: spoke to pt know Dr. Ramos is calling in rx to [facility] IUM CANCELLATION CLERK Miscellaneous - Interface, In Edr Dental Conversion - 05/04/2015 12:00 AM PREMIUM CANCELLATION CLERK 05/04/2015: Rx Request: Pt had endo#3 done [...] willingly to pick Rx up from the [facility] pharmacy. Pt can be reached back at cell# [phone] or home# [phone]. Clinic informed of this as Dr. Ram is not working at all today. My IUM CANCELLATION CLERK documented in this encounter Plan of Treatment Not on filedocumented as of this encounter Visit Diagnoses Not on filedocumented in this encounter Care Teams Gis Specialist Relationship Specialty Start Date End Date Kristine Brown MD PCP - General Family Practice 03/25/13 [address] [place] [address] documented as of this encounter
--- OUTSIDE RECORDS SUMMARY | 2022-02-15 07:41 | XMS_ITS | Encounter Summary ---
:1945 Author Organization [facility] Address [address] [place] [address] Care Team Providers Name Role Phone Kristine Brown MD Primary Care Provider Reason for Visit Reason Comments Encounter Details Date Type Department Care Team Description 07/27/2016 Telephone Specialty Center 401 Emma Britton MD Rheumatology Clinic [address] [facility] [address] [facility] [place] [address] [place] [address] [phone] Social History Tobacco Use Types Packs/Day Years [...] on filedocumented in this encounter Care Teams Bobcat Operator Relationship Specialty Start Date End Date Kristine Brown MD PCP - General Family Practice 03/25/13 [address] [place] [address] documented as of this encounter
--- OUTSIDE RECORDS SUMMARY | 2022-02-15 07:41 | XMS_ITS | Encounter Summary ---
:1945 Author Organization [facility] Address [address] [place] [address] Care Team Providers Name Role Phone Kristine Brown MD Primary Care Provider Reason for Visit Reason Comments Restorative Services 9F,11F comp, 5mol amal Encounter Details Date Type Department Care Team Description 09/03/2020 Office Visit [facility] Richard Head, DDS [address] [place], [place] [phone] Restorative Services Dentistry Yard[place], Exam (9F,11F comp, 5mol [address] [facility] [place]) [place] [address] Social History Tobacco Use Types [...] was administered by Tushar Head DDS AMALGAM EVANGELICAL, #5: Prepared with incomplete removal of existing [...] because of the risk of fracture COMPOSITE EVANGELICAL, #9, #11: Prepared with complete caries removal Isolated area with high speed suction and a rubber dam. Retraction cord isolation also Bonding with [employer]ch[employer] [place] material Preparation filled with composite material : [...] Caries of cervical margin of tooth - [facility] Fracture of tooth enamel and dentin documented in this encounter Care Teams Database Tester Relationship Specialty Start Date End Date Kristine Brown MD PCP - General Family Practice 03/25/13 [address] [place] [address] documented as of this encounter
--- OUTSIDE RECORDS SUMMARY | 2022-02-15 07:41 | XMS_ITS | Encounter Summary ---
:1945 Author Organization [employer] Address [address] [place] [address] Care Team Providers Name Role Phone Kristine Brown MD Primary Care Provider Reason for Visit Reason Comments Problem Focused Exam crown came off Encounter Details Date Type Department Care Team Description 02/11/2020 Office Visit [place] [facility] Tushar Head Pro blem Focused Exam Dentistry DDS (crown came off) [address] [facility] [address] [place] [address] [phone] Social History Tobacco Use Types Packs/Day Years [...] of tissue on M margin. PA wnl. [place] seats into position, but blanches tissue mesial. RADIOGRAPHIC INTERPRETATION: #19 Normal DIAGNOSIS: Loose Dental [place] (finding) (primary encounter diagnosis) PROGNOSIS: #19 Favorable Plan Treatment Discussion I discussed the Dental findings, Prognosis, Treatment options, Risks and complications associated with procedure and Billing/Treatment estimate with patient. CONSENT: All questions answered and the patient gave informed consent to proceed with dental treatment/services. Completed Procedures CROWN AND BRIDGE RE-CEMENT - #19: [place] recementation with resin-modified glass ionomer.Relyx luting plus Apparent reason for failure: Cement failure and Buildup failure Radiographs : N/A Verified occlusion, contacts, margins and cement removal Post-Op Instructions: Patient was advised of normal post-operative instructions Care was assisted by CHRIS Shaffer 02/11/2020, 11:44 AM Next Planned Visit: CONSTRUCTION ASSISTANT exam/prophy Tushar Head DDS 02/11/2020, 2:12 PM --End of Note-- 11:43 AM documented in this encounter Plan of Treatment Not on filedocumented as of this encounter Procedures Procedure Name Priority Date/Time Associated Diagnosis Comme nts FILM-PERIAPICAL FIRST Routine 02/11/2020 12:00 PM Loose Dental [place] CDT (finding) 19 CROWN RECEMENT Routine 02/11/2020 12:00 PM Loose Dental Control Director wn CDT (finding) LIMITED ORAL EVALUATION Routine 02/11/2020 12:00 PM Loose [place] al [place] CDT (finding) 2 MO EXISTING AMALGAM Routine 01/22/2008 11:00 PM FILLING CDT documented in this encounter Visit Diagnoses Diagnosis Loose Dental [place] (finding) - Primary documented in this encounter Care Teams Visitor Use Assistant Relationship Specialty Start Date End Date Kristine Brown MD PCP - General Family Practice 03/25/13 [address] [place] [address] documented as of this encounter
--- OUTSIDE RECORDS SUMMARY | 2022-02-15 07:41 | XMS_ITS | Encounter Summary ---
:1945 Author Organization [facility] Address [address] [address] Care Team Providers Name Role Phone Kristine Brown MD Primary Care Provider Encounter Details Date Type Department Care Team Description 10/26/2016 Lab Visit [facility] Gout, un specified cause, Laboratory unspecified chronicity, [address] unspecified site [place], [place] [id number] Social History Tobacco Use Types Packs/Day Years [...] Results Uric Acid (10/26/2016 9:01 AM CDT) athologist Signature Uric Acid 6.5 3.5 - 7.2 [facility] mg/dl Specimen Anatomical Collection Method Collection Time Receive d Time (Source) Location / / Volume Laterality 10/26/2016 9:01 AM 7 9:03 CDT AM CDT Narrative [facility] - 10/26/2016 12:10 PM CDT Performed at [address] ??[address] Prateek Britton MD LAB_1 Performing Organization Address [facility] Phon e Number [facility] [phone] Creatinine / GFR (10/26/2016 9:01 AM CDT) [...] - 10/26/2016 12:10 PM CDT Performed at [facility], [address] [place] [address] ??[address] Prateek Britton MD LAB_1 Performing Organization Address [facility] Phon e Number [facility] [phone] ALT (SGPT) (10/26/2016 9:01 AM CDT) athologist Signature ALT (SGPT) 23 0 - 55 U/L [facility] Specimen Anatomical Collection Method Collection Time Receive d Time (Source) Location / / Volume Laterality 10/26/2016 9:01 AM 7 9:03 CDT AM CDT Narrative [facility] - 10/26/2016 12:10 PM CDT Performed at [facility], [address] [place] [address] ??[address] Prateek Britton MD LAB_1 Performing Organization Address [facility] Phon e Number [facility] [phone] AST (10/26/2016 9:01 AM CDT) P athologist Signature AST (SGOT) 17 10 - 40 U/L [facility] Specimen Anatomical Collection Method Collection Time Receive d Time (Source) Location / / Volume Laterality 10/26/2016 9:01 AM 7 9:03 CDT AM CDT Narrative [facility] - 10/26/2016 12:10 PM CDT Performed at [facility], [address] [place] [address] ??[address] Prateek Britton MD LAB_1 Performing Organization Address City/[facility] Phon e Number [facility] [phone] (ABNORMAL) Complete Blood Count-W/Diff (10/26/2016 9:01 AM [...] [facility] Lymph 13 % [facility] [place] 9 % [facility] Eos 2 % [facility] Baso 0 % [facility] Neutrophil 4.7 1.8 - 7.7 [facility] k/ul [facility] Lymph Absolute 0.8 (L) 1.0 - 4.8 [facility] k[facility]ul [facility] [place] Absolute 0.6 0.1 - 0.7 [facility] k/ul [...] 10/26/2016 1:21 PM C DT Performed at [facility], [address] [place] [address] ??[address] Prateek Britton MD LAB_1 Performing Organization Address City/State/ZIP Code Phon e Number [facility] [phone] documented in this encounter Visit Diagnoses Diagnosis Gout, unspecified cause, unspecified chr onicity, unspecified site documented in this encounter Care Teams Night Court Magistrate Relationship Specialty Start Date End Date Kristine Brown MD PCP - General Family Practice 03/25/13 [address] [place], [place] [id number] documented as of this encounter
--- OUTSIDE RECORDS SUMMARY | 2022-02-15 07:41 | XMS_ITS | Encounter Summary ---
:1945 Author Organization [facility] Address [address] [place] [address] Care Team Providers Name Role Phone Phillip Lopez MD Primary Care Provider Reason for Visit Reason Comments Refill lisinopril (ZESTRIL) 40 MG t ablet [Pharmacy Med Name: LISINOPRIL 40MG TABS] Encounter Details Date Type Department Care Team Description 08/17/2017 Refill [facility] Pihllip Lopez MD Refill (lisinopril Practice [address] (ZESTRIL) 40 MG tablet [address] [place], [place] [Pharmacy Med Name: [place], [place] [address] LISINOPRIL 40MG TABS]) [phone] (Wo rk) Social History Tobacco Use Types [...] K: 4.3 mEq/L on 07/14/2016 Powered by [employer], Reference: [id number], 08/17/2017 4:01:06 PM CDT, Pool: ABARCA RN ([id number]) Interface, Out HealthyOut Query - 08/17/2017 4:01 PM CDT The [...] on filedocumented in this encounter Care Teams Combustion Analyst Relationship Specialty Start Date End Date Phillip Lopez MD PCP - General Family Practice 03/25/13 [address] [place] [address] documented as of this encounter
--- OUTSIDE RECORDS SUMMARY | 2022-02-15 07:41 | XMS_ITS | Encounter Summary ---
:1945 Author Organization [facility] Address [address] [place] [address] Care Team Providers Name Role Phone Kristine Brown MD Primary Care Provider Reason for Referral Dental (Routine) - Closed Specialty Diagnoses / Procedures Referred By Contact Refer red To Contact Diagnoses Chronic apical abscess Tushar Head DDS [address] [place], [place] [address] Referral ID Status Reason Start Date Expiration Date Visits Requ ested Visits Authorized [id number] Closed 04/09/2020 07/09/2021 1 1 Scheduling Instructions Your provider has recommended an appoint ment for endodontic services within [facility]. You may c all one of the clinics below to schedule an appointment. [place] [phone] [place] [phone] D COORDINATOR Reason for Visit Reason Comments REFERRAL REQUEST Encounter Details Date Type Department Care Team Description 04/08/2020 Telephone [facility] Richard Head DDS REFERRAL REQUEST Dentistry [address] [place] [address] [place] [address] [place] [address] [phone] Social History Tobacco Use Types Packs/Day Years [...] He will call them to get scheduled. D COORDINATOR Tushar Head DDS - 04/09/2020 7:08 AM CST Placed new referral for [facility] for #12,13 per phone message. His request also mentioned [facility] which is Oral surgery, not endo. If he wants teeth removed I will put in OS referral. He has appt with Dr. Cardoza for extraction of #3 on 05/19/20 Tushar Head DDS 04/09/2020, 7:10 AM D COORDINATOR Bisi Thorpe - 04/08/2020 10:42 AM CST Miscellaneous Questions & FYI's [ Appt Center/[facility] Regenerator Operator: If this call is after 3 p.m., communicate to patient: If we are not able to get back to you by the end of the day and your symptoms worsen please contact the Careline at [phone] OR at .] Is this a symptom? No What is your question or concern? Patient wants a new referral for an pmo project manager placed in his chart. He would like to go to [facility] in [place]. Patient was seen by [facility] Reardon and states he wasn't comfortable with them. Please advise Have you recently been seen for this? Yes: 03/16/20 Is it okay to leave a detailed message on your voicemail? Yes Bisi Thorpe D COORDINATOR documented in this encounter Plan of Treatment Scheduled Referrals Name Type Priority Associated Diagnoses Order S chedule Endodontics Consult Referral Routine Chronic apical absces s Ordered: 04/09/2020 documented as of this encounter Visit Diagnoses Diagnosis Chronic apical abscess - Primary documented in this encounter Care Teams Bench Inspector Relationship Specialty Start Date End Date Kristine Brown MD PCP - General Family Practice 03/25/13 [address] [place] [address] documented as of this encounter
--- OUTSIDE RECORDS SUMMARY | 2022-02-15 07:41 | XMS_ITS | Encounter Summary ---
:1945 Author Organization [facility] Address [address], [place] [address] Care Team Providers Name Role Phone Kristine Brown MD Primary Care Provider Reason for Visit Reason Comments Endodontic Services co #12, #13 Dental (Routine) - Closed Specialty Diagnoses / Procedures Referred By Contact Refer red To Contact Diagnoses Dental caries into pulp Pulpal necrosis Tushar Head DDS [address] [place], [place] [address] Referral ID Status Reason Start Date Expiration Date Visits Requ ested Visits Authorized [id number] Closed 03/16/2020 06/15/2021 1 1 Encounter Details Date Type Department Care Team Description 03/30/2020 Office Visit [facility] [address], [place], [place] (co #12, #13) [place] [address] [phone] [place], [place] [address] Social History Tobacco Use Types [...] NEXT PLANNED VISIT: Treatment --End of Note-- IR DEPARTMENT MANAGER documented in this encounter Plan of Treatment Not on filedocumented as of this encounter Procedures Procedure Name Priority Date/Time Associated Diagnosis Comme nts 12,13 LIMITED ORAL Routine 03/30/2020 9:00 AM Visit for dental EVALUATION REPAIR DEPARTMENT MANAGER examination documented in this encounter Visit Diagnoses Diagnosis Visit for dental examination - Primary Dental examination documented in this encounter Care Teams Accident Report Clerk Relationship Specialty Start Date End Date Kristine Brown MD PCP - General Family Practice 03/25/13 [address] [place] [address] documented as of this encounter
--- OUTSIDE RECORDS SUMMARY | 2022-02-15 07:41 | XMS_ITS | Encounter Summary ---
:1945 Author Organization [facility] Address [address] [place] [address] Care Team Providers Name Role Phone Kristine Brown MD Primary Care Provider Reason for Visit Reason Comments Refill Encounter Details Date Type Department Care Team Description 02/27/2017 Refill [facility] Curve Morris t, Prateek Mcbride MD Refill [facility] [address] [place] [address] [place] [address] [phone] Social History Tobacco Use Types Packs/Day Years [...] on filedocumented in this encounter Care Teams Pairer Substandard Relationship Specialty Start Date End Date Kristine Brown MD PCP - General Family Practice 03/25/13 [address] [place], [place] [address] documented as of this encounter
--- OUTSIDE RECORDS SUMMARY | 2022-02-15 07:41 | XMS_ITS | Encounter Summary ---
:1945 Author Organization [employer] Address [address] [place] [address] Care Team Providers Name Role Phone Kristine Brown MD Primary Care Provider Reason for Visit Reason Comments Oral Surgical Services consult / la 3 Dental (Routine) - Closed Specialty Diagnoses / Procedures Referred By Contact Refer red To Contact Diagnoses Fracture of crown and root of tooth Extensive root caries lesions involving dentin Av [facility] [address] [place] [address] Referral ID Status Reason Start Date Expiration Date Visits Requ ested Visits Authorized [id number] Closed 02/18/2020 05/19/2021 1 1 Encounter Details Date Type Department Care Team Description 04/07/2020 Office Visit Tatiana Gutierrez Surgical Surgery M, DDS Services (consult / [address] [place] [address] [place] [address] [phone] Social History Tobacco Use Types Packs/Day Years [...] - - Pulse 76 04/07/2020 10:48 AM BOMB SQUAD OFFICER Temperature - - Respiratory Rate - - [...] #3 Tatiana Cardoza DDS 04/07/2020, 3:12 PM SQUAD OFFICER documented in this encounter Plan of Treatment Not on filedocumented as of this encounter Procedures Procedure Name Priority Date/Time Associated Diagnosis Comme nts LIMITED ORAL EVALUATION Routine 04/07/2020 11:00 AM Dental car ies into BOMB SQUAD OFFICER pulp documented in this encounter Visit Diagnoses Diagnosis Dental caries into pulp - Primary Dental caries extending into pulp documented in this encounter Care Teams Molded Parts Inspector Relationship Specialty Start Date End Date Kristine Brown MD PCP - General Family Practice 03/25/13 [address] [place] [address] documented as of this encounter
--- OUTSIDE RECORDS SUMMARY | 2022-02-15 07:41 | XMS_ITS | Encounter Summary ---
:1945 Author Organization [facility] Address [address] [place] [address] Care Team Providers Name Role Phone Kristine Brown MD Primary Care Provider Reason for Visit Reason Comments Appt. Needed Pt would like to speak with DDS about consult on tooth 12 13. Wasn't happy with last consult 03/30 . Encounter Details Date Type Department Care Team Description 05/11/2020 [facility]phone [facility] Exam Appt. N eeded (Pt would Dentistry like to speak with DDS [address] Arvind Jmaal about consult on tooth 12 [place], [place] [address] 13. Wasn't happy with last [phone] consult 03/30. ) Social History Tobacco Use [...] on filedocumented in this encounter Care Teams Skidway Worker Relationship Specialty Start Date End Date Kristine Brown MD PCP - General Family Practice 03/25/13 [address] [facility] [place] [address] documented as of this encounter
--- OUTSIDE RECORDS SUMMARY | 2022-02-15 07:41 | XMS_ITS | Encounter Summary ---
:1945 Author Organization [employer] Address [address], [place] [address] Care Team Providers Name Role Phone Kristine Brown MD Primary Care Provider Reason for Visit Reason Comments Encounter Details Date Type Department Care Team Description 08/15/2016 Telephone [facility] Prateek Elizabeth MD [facility] [address] [address] [place] [address] [phone] Social History Tobacco Use Types Packs/Day Years [...] Primary documented in this encounter Care Teams Civil Cad Tech Relationship Specialty Start Date End Date Kristine Brown MD PCP - General Family Practice 03/25/13 [address] [place] [address] documented as of this encounter
--- OUTSIDE RECORDS SUMMARY | 2022-02-15 07:41 | XMS_ITS | Encounter Summary ---
:1945 Author Organization [employer] Address [address] [place] [address] Care Team Providers Name Role Phone Kristine Brown MD Primary Care Provider Reason for Visit Reason Comments Revisit Encounter Details Date Type Department Care Team Description 07/26/2017 Office Visit Specialty Center [address] Prateek Britton G out, unspecified Rheumatology Clinic cause, unspecified [address] chronicity, [place] [address] [place], [place] unspecified site [phone] (Primary Dx) Social History Tobacco Use [...] Britton MD - 07/26/2017 8:20 AM CDT [facility] Rheumatology Outpatient Consultation Report Date: 07/26/17 [...] Problems Diagnosis Date Noted ??? HTN (hypertension) ([facility]) 04/09/2013 ??? History of basal cell [...] of bilateral DIPs, PIPs, MCP joints. Normal hand-video coordinator without pain Knee - no joint effusion [...] - 07/26/2017 12:44 PM CDT Performed at [address] ??[address] Prateek Britton MD LAB_1 Performing Organization Address [facility] Phon e Number [facility] [phone] Creatinine / GFR (07/26/2017 9:04 AM CDT) [facility] Time Signature Creatinine 1.02 0.73 - [facility] 1.18 mg/dl [facility] GFR, Estimated >60 >60 [facility] ml/min/1.7 [facility] 3m2 GFR, Est., If >60 >60 [facility] Black ml/min/1.7 [facility] 3m2 Specimen Anatomical Collection Method Collection Time Receive d Time (Source) Location / / Volume Laterality 07/26/2017 9:04 AM 8 9:05 CDT AM CDT Narrative [facility] - 07/26/2017 12:44 PM CDT Performed at [address] ??[address] Prateek Britton MD LAB_1 Performing Organization Address [facility] Phon e Number [facility] [phone] ALT (SGPT) (07/26/2017 9:04 AM CDT) P athologist Signature ALT (SGPT) 22 0 - 55 U/L [facility] Specimen Anatomical Collection Method Collection Time Receive d Time (Source) Location / / Volume Laterality 07/26/2017 9:04 AM 8 9:05 CDT AM CDT Narrative [facility] - 07/26/2017 12:44 PM CDT Performed at [address] ??[address] Prateek Britton MD LAB_1 Performing Organization Address [facility] Phon e Number [facility] [phone] AST (07/26/2017 9:04 AM CDT) P athologist Signature AST (SGOT) 17 10 - 40 U/L [facility] Specimen Anatomical Collection Method Collection Time Receive d Time (Source) Location / / Volume Laterality 07/26/2017 9:04 AM 8 9:05 CDT AM CDT Narrative [facility] - 07/26/2017 12:44 PM CDT Performed at [facility], [address] [place] [address] Prateek Britton MD LAB_1 Performing Organization Address City/State/ZIP Code Phon e Number [facility] [phone] (ABNORMAL) Complete Blood Count-W/Diff (07/26/2017 9:04 AM CDT) [facility] gist Method Time Signature WBC 4.4 4.0 [...] [facility] Lymph 24 % [facility] [place] 11 % [facility] Eos 5 % [facility] Baso 1 % [facility] Neutrophil 2.6 1.8 - 7.7 [facility] k/ul [facility] Lymph Absolute 1.0 1.0 - 4.8 [facility] k/ul [facility] [place] Absolute 0.5 0.1 - 0.7 [facility] k/ul [...] 07/26/2017 1:43 PM C DT [facility], [address] [place] [address] ??[address] Prateek Britton MD LAB_1 Performing Organization Address City/State/ZIP Code Phon e Number [facility] [phone] documented in this encounter Visit Diagnoses Diagnosis Gout, unspecified cause, unspecified chr onicity, unspecified site - Primary documented in this encounter Care Teams Retail Interior Designer Relationship Specialty Start Date End Date Kristine Brown MD PCP - General Family Practice 03/25/13 [address] [place] [address] documented as of this encounter
--- OUTSIDE RECORDS SUMMARY | 2022-02-15 07:41 | XMS_ITS | Encounter Summary ---
:1945 Author Organization [facility] Address [address] [place] [address] Care Team Providers Name Role Phone Kristine Brown MD Primary Care Provider Encounter Details Date Type Department Care Team Description 08/12/2016 Lab Visit [facility] Gout, unspecified cause, [address] [facility] unspecified chronicity, [place], [place] [address] unspecified site [phone] Social History Tobacco Use Types Packs/Day Years [...] - 08/12/2016 12:22 PM CDT Performed at [facility], [address] [place] [address] ??[address] Prateek Britton MD LAB_1 Performing Organization Address [facility] Phon e Number [facility] [phone] (ABNORMAL) Creatinine / GFR (08/12/2016 7:53 AM [...] - 08/12/2016 12:22 PM CDT Performed at [facility], [address] [place] [address] Prateek Britton MD LAB_1 Performing Organization Address City/State/ZIP Code Phon e Number [facility] [phone] ALT (SGPT) (08/12/2016 7:53 AM CDT) P athologist Signature ALT (SGPT) 31 0 - 55 U/L [facility] Specimen Anatomical Collection Method Collection Time Receive d Time (Source) Location / / Volume Laterality 08/12/2016 7:53 AM 7 7:54 CDT AM CDT Narrative [facility] - 08/12/2016 12:22 PM CDT Performed at [facility], [address] [place] [address] ??[address] Prateek Britton MD LAB_1 Performing Organization Address City/[facility]/ZIP Code Phon e Number [facility] [phone] AST (08/12/2016 7:53 AM CDT) athologist Signature AST (SGOT) 23 10 - 40 U/L [facility] Specimen Anatomical Collection Method Collection Time Receive d Time (Source) Location / / Volume Laterality 08/12/2016 7:53 AM 7 7:54 CDT AM CDT Narrative [facility] - 08/12/2016 12:22 PM CDT Performed at [facility], [address] [place] [address] ??[address] Prateek Britton MD LAB_1 Performing Organization Address City/[facility]/ZIP Code Phon e Number [facility] [phone] (ABNORMAL) Complete Blood Count-W/Diff (08/12/2016 7:53 AM CDT) [facility] gist Method Time Signature WBC 3.0 (L) [...] [facility] Lymph 26 % [facility] [place] 19 % [facility] Eos 6 % [facility] Baso 0 % [facility] Neutrophil 1.4 (L) 1.8 - 7.7 [facility] k/ul [facility] Lymph Absolute 0.8 (L) 1.0 - 4.8 [facility] k[facility]ul [facility] [place] Absolute 0.6 0.1 - 0.7 [facility] k/ul [...] 08/12/2016 1:36 PM C DT Performed at [facility], [address] [place] [address] ??[address] Prateek Britton MD LAB_1 Performing Organization Address City/State/ZIP Code Phon e Number [facility] [phone] documented in this encounter Visit Diagnoses Diagnosis Gout, unspecified cause, unspecified chr onicity, unspecified site documented in this encounter Care Teams Small Business Director Relationship Specialty Start Date End Date Kristine Brown MD PCP - General Family Practice 03/25/13 [address] [place], [place] [id number] documented as of this encounter
--- OUTSIDE RECORDS SUMMARY | 2022-02-15 07:41 | XMS_ITS | Encounter Summary ---
:1945 Author Organization [facility] Address [address], [place] [address] Care Team Providers Name Role Phone Kristine Brown MD Primary Care Provider Reason for Referral Dental (Routine) - Closed Specialty Diagnoses / Procedures Referred By Contact Refer red To Contact Diagnoses Fracture of crown and root of tooth Extensive root caries lesions involving dentin [facility] [address] [place], [place] [address] Referral ID Status Reason Start Date Expiration Date Visits Requ ested Visits Authorized [id number] Closed 02/18/2020 05/19/2021 1 1 Scheduling Instructions Your provider has recommended an appoint ment with an oral surgeon within [facility]. You may c all one of the clinics below to schedule an appointment. [place] - [phone] [facility] [phone] [place] [phone] Reason for Visit Reason Comments Dental Hygiene upper rt tooth occ gives pro blems Encounter Details Date Type Department Care Team Description 02/17/2020 Office Visit [place] Suni Michel [facility] [address] [place] [address] Dental Hygiene (upper Dentistry [place], [place] [address] [facility] problems) [place] [address] Social History Tobacco Use Types Packs/Day Years [...] collaborating agreement with Tushar Head DDS (License #:[id number]) PRESENTATION: Oral Hygiene: Good Plaque: Localized, light supra-gingival and interproximal Calculus: Localized, light supra-gingival , interproximal and mandibular anterior Stain: None Bleeding: Localized light Gingival tissue: Normal Mucogingival concerns: Absent ACTIVITIES: Hand scale, Flossed all contacts and No slovak PATIENT EDUCATION: O[place], Oral care adjuncts, Fluoride [...] Priority Associated Order Schedule Diagnoses 13 13 [place] [facility] Dental Procedures Routine [...] Localized inflammati on CDT of gingival margin [id number] Routine 02/17/2020 3:50 PM Localized inflam mation [...] dentin documented in this encounter Care Teams Director Biology Relationship Specialty Start Date End Date Kristine Brown MD PCP - General Family Practice 03/25/13 [address] [place] [address] documented as of this encounter
--- OUTSIDE RECORDS SUMMARY | 2022-02-15 07:42 | XMS_ITS | Encounter Summary ---
:1945 [facility] Address [address] [place] [address] Care Team Providers Name Role Phone Kristine Brown MD Primary Care Provider Reason for Referral Consult/Transfer Care (Routine) - Closed Specialty Diagnoses / Procedures Referred By Contact [place] [address] [place], [place] [address] Referral ID Status Reason Start Date Expiration Date Visits Requ ested Visits Authorized [id number] Closed 11/06/2015 02/04/2017 1 1 Scheduling Instructions Your provider has recommended an appoint ment [facility]. A director of revenue cycle management will contact you within the next 3 busin ess days to assist you in setting up this appointment. Reason for Visit Reason Comments FOLLOW-UP,BP MEDICATION CHECK Health Maintanence Declined Encounter Details Date Type Department Care Team Description 11/06/2015 Office Visit [facility] Kristine Brown MD Essential hypertension Practice [address] [place] [address] (Primary Dx) [address] [place] [address] [phone] Social History Tobacco Use Types Packs/Day Years [...] Name Type Priority Associated Diagnoses Order S dheerajle NURSE APPOINTMENT Referral Routine Ordered: 0 11/06/2015 ADULT/PEDS [[id number]] documented as of this encounter Visit Diagnoses Diagnosis Essential hypertension (HRC) - Primary Unspecified essential hypertension documented in this encounter Care Teams Public Services Librarian Relationship Specialty Start Date End Date Kristine Brown MD PCP - General Family Practice 03/25/13 [address] [place] [address] documented as of this encounter
--- OUTSIDE RECORDS SUMMARY | 2022-02-15 07:42 | XMS_ITS | Encounter Summary ---
:1945 Author Organization [facility] Address [address] [place] [address] Care Team Providers Name Role Phone Kristine Brown MD Primary Care Provider Encounter Details Date Type Department Care Team Description 04/18/2016 Refill Order [facility] Kristine Brown MD Practice [id number] [place] [address] [place] [address] [place] [address] [phone] Social History Tobacco Use Types Packs/Day Years [...] notified. Charlene Ortega CMA 05/05/2016, 6:11 PM TIFICATION TECHNICIAN documented in this encounter Plan of Treatment Not on filedocumented as of this encounter Visit Diagnoses Diagnosis Encounter for long-term (current) use of medications - Primary Encounter for long-term (current) use of other medications documented in this encounter Care Teams Mold Maker Plastic Molds Relationship Specialty Start Date End Date Kristine Brown MD PCP - General Family Practice 03/25/13 [address] [place] [address] documented as of this encounter
--- OUTSIDE RECORDS SUMMARY | 2022-02-15 07:42 | XMS_ITS | Encounter Summary ---
:1945 Author Organization [employer] Address [address], [place] [address] Care Team Providers Name Role Phone Kristine Brown MD Primary Care Provider Encounter Details Date Type Department Care Team Description 04/01/2014 Office Visit [place] Nighat Nieto, Senile nucle ar sclerosis, bilateral (Primary Dx); Ophthalmology Myopia, bilateral [address] [place], [place] [address] [place], [place] [address] Social History Tobacco Use Types Packs/Day Years [...] exam, sooner for worsening signs or symptoms. ERSITY ADMINISTRATIVE ASSISTANT documented in this encounter Progress Notes Nighat Nieto MD - 04/01/2014 2:28 PM CST New patient to provider Armen Crump is a 69 yr old male here for evaluation of the retina (was seen at [facility] by human resources associate Broderick Torres in [place] and told he may have spots on [...] exam, sooner for worsening signs or symptoms. ERSITY ADMINISTRATIVE ASSISTANT documented in this encounter Plan of Treatment Not on filedocumented as of this encounter Visit Diagnoses Diagnosis Senile nuclear sclerosis, bilateral - Pr imary Myopia, bilateral Myopia documented in this encounter Care Teams Loan Officer Assistant Relationship Specialty Start Date End Date Kristine Brown MD PCP - General Family Practice 03/25/13 [address] [place] [address] documented as of this encounter
--- OUTSIDE RECORDS SUMMARY | 2022-02-15 07:42 | XMS_ITS | Encounter Summary ---
:1945 Author Organization [employer] Address [address] [place] [address] Care Team Providers Name Role Phone Phillip Brown MD Primary Care Provider Reason for Visit Reason Comments Refill lisinopril (ZESTRIL) 40 MG t ablet [Pharmacy Med Name: LISINOPRIL 40MG TABS] Encounter Details Date Type Department Care Team Description 04/18/2016 Refill [facility] Phillip Brown MD Refill (lisinopril Practice [address] (ZESTRIL) 40 MG tablet [address] [place], [place] [Pharmacy Med Name: [place], [place] [address] LISINOPRIL 40MG TABS]) [phone] (Wo rk) Social History Tobacco Use Types [...] K: 5 mEq/L on 03/13/2015 Powered by [employer], Reference: [id number], 04/18/2016 9:00:24 AM RETAIL BEAUTY SPECIALIST, Pool: ABARCA RN ([id number]) [place] BEAUTY SPECIALIST Interface, Out MegaPath Prov Query - 04/18/2016 9:00 AM CST The following lab order(s) may be associated with the following Patient Result Comment (Entered by Aby Gayle RN at 03/13/2015 4:04 PM): JUAN Ayers,Your test results are within normal range. Feel free to contact me if you have questions, by using the 'send a message' link at the top of the page.Phillip Brown, STEFAN/heidy [place] BEAUTY SPECIALIST Interface, Out Surescripts Prov Query - 04/18/2016 [...] the top of the page.Phillip Brown, MDRF/gm [place] BEAUTY SPECIALIST documented in this encounter Plan of Treatment Not on filedocumented as of this encounter Visit Diagnoses Not on filedocumented in this encounter Care Teams Chief Of Field Operations Relationship Specialty Start Date End Date Phillip Brown MD PCP - General Family Practice 03/25/13 [address] [place] [address] documented as of this encounter
--- OUTSIDE RECORDS SUMMARY | 2022-02-15 07:42 | XMS_ITS | Encounter Summary ---
:[address] [address] Address [address] [place] [address] Care Team Providers Name Role Phone Kristine Brown MD Primary Care Provider Reason for Visit Reason Comments Medication Questions Amlodipine 10mg qty and dire ctons do not match Encounter Details Date Type Department Care Team Description 04/20/2016 Telephone [facility] Kristine Brown MD Medication Questions Practice [address] [facility] (Amlodipine 10mg qty [address] [place], [place] and directons do not [place], [place] [address] match) [phone] (Wo rk) Social History Tobacco Use Types [...] rx entered.Kristine Brown MD 04/20/2016, 1:02 PM S DEVELOPMENT EXECUTIVE Vicki Echevarria - 04/20/2016 12:[address] Brown Amlodipine 10mg qty and directons do not match Patient history : take 1 tablet daily / is patient now taking one-half tablet daily? Please resend with corrected qty of 45 Thank you S DEVELOPMENT EXECUTIVE documented in this encounter Plan of Treatment Not on filedocumented as of this encounter Visit Diagnoses Not on filedocumented in this encounter Care Teams Bronc Breaker Relationship Specialty Start Date End Date Kristine Brown MD PCP - General Family Practice 03/25/13 [address] [place] [address] documented as of this encounter
--- OUTSIDE RECORDS SUMMARY | 2022-02-15 07:42 | XMS_ITS | Encounter Summary ---
:1945 Author Organization [employer] Address [address] [place] [address] Care Team Providers Name Role Phone Kristine Brwon MD Primary Care Provider Reason for Visit Reason Comments BP CHECK,NURSE Encounter Details Date Type Department Care Team Description 04/20/2015 Telephone [facility] Kristine Brown MD BP CHECK,NURSE Practice [address] [facility] [address] [place] [address] [place] [address] [phone] Social History Tobacco Use Types Packs/Day Years [...] noted. Kristine Brown MD 04/20/2015, 12:22 PM LOPMENTAL SPECIALIST Radha Wallis LPN - 04/20/2015 10:02 AM CST SE[facility] BP-132/81 9-. Radha Wallis LPN 04/20/2015, 10:03 AM LOPMENTAL SPECIALIST documented in this encounter Plan of Treatment Not on filedocumented as of this encounter Visit Diagnoses Not on filedocumented in this encounter Care Teams Car Construction Superintendent Relationship Specialty Start Date End Date Kristine Brown MD PCP - General Family Practice 03/25/13 [address] [place] [address] documented as of this encounter
--- OUTSIDE RECORDS SUMMARY | 2022-02-15 07:42 | XMS_ITS | Encounter Summary ---
:1945 Author Organization [facility] Address [address] [place] [address] Care Team Providers Name Role Phone Kristine Brown MD Primary Care Provider Reason for Referral Consult/Transfer Care (Routine) - Closed Specialty Diagnoses / Procedures Referred By Contact [place] [address] [place], [place] [address] Referral ID Status Reason Start Date Expiration Date Visits Requ ested Visits Authorized [id number] Closed 11/30/2015 02/28/2017 1 1 Scheduling Instructions Your provider has recommended an appoint ment with a [facility] nurse. A lip of shank cutter will contact you within the next 3 busin ess days to assist you in setting up this appointment. Reason for Visit Reason Comments MEDICATION CHECK sweating and ringing in ears since starting Amlodipine Encounter Details Date Type Department Care Team Description 11/30/2015 Office Visit [facility] Kristine Brown MD Essential hypertension Practice [address] [place] [address] (Primary Dx) [address] [place] [address] [phone] Social History Tobacco Use Types Packs/Day Years [...] S chedule NURSE APPOINTMENT Referral Routine Ordered: 0 11/30/2015 ADULT/PEDS [[id number]] documented as of this encounter Visit Diagnoses Diagnosis Essential hypertension (HRC) - Primary Unspecified essential hypertension documented in this encounter Care Teams Solar Sales Advisor Relationship Specialty Start Date End Date Kristine Brown MD PCP - General Family Practice 03/25/13 [address] [place] [address] documented as of this encounter
--- OUTSIDE RECORDS SUMMARY | 2022-02-15 07:42 | XMS_ITS | Encounter Summary ---
:1945 Author Organization [facility] Address [address] [place] [address] Care Team Providers Name Role Phone Kristine Brown MD Primary Care Provider Reason for Visit Reason Onset Date Comments Refill 04/20/2016 Encounter Details Date Type Department Care Team Description 04/20/2016 Refill [facility] Kristine Brown MD Refill [address] [facility] [address] [place], [place] [address] [place] [address] [phone] (Wo rk) Social History Tobacco Use Types [...] on filedocumented in this encounter Care Teams Rn Float Relationship Specialty Start Date End Date Kristine Brown MD PCP - General Family Practice 03/25/13 [address] [place], [place] [address] documented as of this encounter
--- OUTSIDE RECORDS SUMMARY | 2022-02-15 07:42 | XMS_ITS | Encounter Summary ---
:1945 Author Organization [employer] Address [address] [place] [address] Care Team Providers Name Role Phone Kristine Brown MD Primary Care Provider Reason for Visit Reason Comments FOLLOW-UP,BP MEDICATION CHECK Encounter Details Date Type Department Care Team Description 04/15/2016 Office Visit [facility] Kristine Brown MD Essential hypertension Practice [id number] [place] [address] (Primary Dx) [address] [place] [address] [phone] Social History Tobacco Use Types Packs/Day Years [...] Comments Blood Pressure 134/84 04/15/2016 10:09 AM DIGITAL TECHNICIAN Pulse 72 04/15/2016 10:09 AM DIGITAL TECHNICIAN Temperature - - Respiratory Rate - [...] days. He had blood work done at [place] in 11/06- he will forward these results [...] scanning. Kristine Brown MD 04/19/2016, 1:07 PM TAL TECHNICIAN documented in this encounter Plan of Treatment Not on filedocumented as of this encounter Visit Diagnoses Diagnosis Essential hypertension (HRC) - Primary Unspecified essential hypertension documented in this encounter Care Teams Apartment Hotel Manager Relationship Specialty Start Date End Date Kristine Brown MD PCP - General Family Practice 03/25/13 [address] [place] [address] documented as of this encounter
--- OUTSIDE RECORDS SUMMARY | 2022-02-15 07:42 | XMS_ITS | Encounter Summary ---
:1945 Author Organization [employer] Address [address] [place] [address] Care Team Providers Name Role Phone Kristine Brown MD Primary Care Provider Reason for Referral Consult/Transfer Care (Routine) - Closed Specialty Diagnoses / Procedures Referred By Contact Refer red To Contact Diagnoses [place] [address] [place], [place] [address] Referral ID Status Reason Start Date Expiration Date Visits Requ ested Visits Authorized [id number] Closed 07/14/2016 10/13/2017 1 1 Scheduling Instructions Your provider has recommended an appoint ment with [facility]. You may call [phone] to schedule your a ppointment. If you prefer, a ticket scheduler will contact you within the next 3 business d ays to assist you in setting up this appointment. We suggest you call your [employer] about your coverage and benefits for this appointment. Reason for Visit Reason Comments PAIN, FOOT Encounter Details Date Type Department Care Team Description 07/14/2016 Office Visit [facility] Thaddeus Rodriguez (Primary Dx); Milla Negrete MD Gout of left ankle, unspecified cause, u nspecified chronicity; [address] [facility] [address] [facility] [place] [address] [phone] Social History Tobacco Use Types Packs/Day Years [...] recently had some blood work at the [facility] this was reviewed and he has a [...] Name Type Priority Associated Diagnoses Order S [facility] Rheumatology Referral Routine Arthritis Ordered: 2016 Consult-Adults documented as of this encounter Results Lyme Antibody, and Western Blot If Needed) (07/14/2016 2:41 PM CDT) Component Value Ref Test Analysis Performed At [facility] Range Method Time Signature Lyme Negative [facility] [...] - 07/15/2016 10:59 AM CDT Performed at [facility], [address] [place] [address] Thaddeus Rodriguez MD LAB_1 Performing Organization Address City/State/ZIP Code Phon e Number [facility] [phone] Rheumatoid Factor, Quant (07/14/2016 2:41 PM CDT) P athologist Signature Quant. Rheum. <15 0 - 30 [facility] Factor IU/ml [facility] Specimen Anatomical Collection Method Collection Time Receive d Time (Source) Location / / Volume Laterality 07/14/2016 2:41 PM 7 2:44 CDT PM CDT Narrative [facility] - 07/14/2016 6:55 PM C DT Performed at [facility], [address] [place] [address] ??[phone] Thaddeus Rodriguez MD LAB_1 Performing Organization Address City/[facility] [[email or web address]] Code Phon e Number [facility] [phone] ARNIE Screen (07/14/2016 2:41 PM CDT) athologist Signature ARNIE Screen Negative NEG [facility] Specimen Anatomical Collection Method Collection Time Receive d Time (Source) Location / / Volume Laterality 07/14/2016 2:41 PM 7 2:44 CDT PM CDT Narrative [facility] - 07/15/2016 1:24 PM C DT Performed at [facility], [address] [place] [address] ??[phone] Thaddeus Rodriguez MD LAB_1 Performing Organization Address City/[facility]/ZIP Code Phon e Number [facility] [phone] (ABNORMAL) C-Reactive Protein (07/14/2016 2:41 PM CDT) [facility] Method Time Signature C-Reactive 4.1 (H) 0.0 - 0.7 [facility] Protein mg/dL [facility] Comment: Note: results are expressed in mg/dL. Specimen Anatomical Collection Method Collection Time Receive d Time (Source) Location / / Volume Laterality 07/14/2016 2:41 PM 7 2:44 CDT PM CDT Narrative [facility] - 07/14/2016 6:58 PM C DT Performed at [facility], [address] [place] [address] ??[phone] Thaddeus Rodriguez MD LAB_1 Performing Organization Address City/[facility]/ZIP Code Phon e Number [facility] [phone] Basic Metabolic Panel (07/14/2016 2:41 PM CDT) [...] 07/14/2016 6:58 PM C DT Performed at [facility], [address] [place] [address] ??[phone] Thaddeus Rodriguez MD LAB_1 Performing Organization Address City/[facility]/ZIP Code Phon e Number [facility] [phone] ESR (07/14/2016 2:41 PM CDT) P athologist Signature ESR 2 0 - 15 [facility] mm/hr Specimen Anatomical Collection Method Collection Time Receive d Time (Source) Location / / Volume Laterality 07/14/2016 2:41 PM 7 2:44 CDT PM CDT Narrative [facility] - 07/14/2016 9:09 PM C DT Performed at [facility], [address] [place] [address] ??[phone] Thaddeus Rodriguez MD LAB_1 Performing Organization Address City/[facility] Phon e Number [facility] [phone] (ABNORMAL) Uric Acid (07/14/2016 2:41 PM CDT) P athologist Signature Uric Acid 7.5 (H) 3.5 - 7.2 [facility] mg/dl Specimen Anatomical Collection Method Collection Time Receive d Time (Source) Location / / Volume Laterality 07/14/2016 2:41 PM 7 2:44 CDT PM CDT Narrative [facility] - 07/14/2016 6:58 PM C DT Performed at [facility], [address] [place] [address] ??[phone] Thaddeus Rodriguez MD LAB_1 Performing Organization Address City/[facility] Phon e Number [facility] [phone] documented in this encounter Visit Diagnoses Diagnosis Arthritis - Primary Arthropathy, unspecified, site unspecifi ed Gout of left ankle, unspecified cause, u nspecified chronicity Essential hypertension (HRC) Unspecified essential hypertension Encounter for long-term (current) use of medications Encounter for long-term (current) use of other medications Arthritis Arthropathy, unspecified, site unspecifi ed documented in this encounter Care Teams Indoor Landscape Architect Relationship Specialty Start Date End Date Kristine Brown MD PCP - General Family Practice 03/25/13 [address] [place] [address] documented as of this encounter
--- OUTSIDE RECORDS SUMMARY | 2022-02-15 07:42 | XMS_ITS | Encounter Summary ---
:1945 Author Organization [employer] Address [address] [place] [address] Care Team Providers Name Role Phone Kristine Brown MD Primary Care Provider Reason for Visit Reason Comments Urgent Appt Request Encounter Details Date Type Department Care Team Description 07/14/2016 Telephone [facility] 401 Unassigned, Urge nt Appt Request Rheumatology Clinic Provider 401 [facility] [address] [place] [address] [place], [place] [phone] [address] Social History Tobacco Use Types Packs/Day Years [...] on filedocumented in this encounter Care Teams Echo Technologist Relationship Specialty Start Date End Date Kristine Brown MD PCP - General Family Practice 03/25/13 [address] [place] [address] documented as of this encounter
--- OUTSIDE RECORDS SUMMARY | 2022-02-15 07:42 | XMS_ITS | Encounter Summary ---
:1945 Author Organization [facility] Address [address] [place] [address] Care Team Providers Name Role Phone Kristine Brown MD Primary Care Provider Encounter Details Date Type Department Care Team Description 12/17/2014 Notes/Orders [facility] Nighat Nieto, Nuclear cataract, [address] [address] [facility] (Primary Dx) [phone] [address] Social History Tobacco Use Types Packs/Day Years [...] Primary documented in this encounter Care Teams Food Beverage Attendant Relationship Specialty Start Date End Date Kristine Brown MD PCP - General Family Practice 03/25/13 [address] [place] [address] documented as of this encounter
--- OUTSIDE RECORDS SUMMARY | 2022-02-15 07:42 | XMS_ITS | Encounter Summary ---
:1945 Author Organization [facility] Address [address] [address] Care Team Providers Name Role Phone Kristine Brown MD Primary Care Provider Encounter Details Date Type Department Care Team Description 07/14/2016 [facility] for [facility]-term (cur rent) use of medications; [address] [facility] Arthritis [place], [place] [address] Social History Tobacco Use [...] Component Value Ref Test Analysis Performed At [facility] gist Range Method Time Signature Lyme [...] - 07/15/2016 10:59 AM CDT Performed at [facility], [address] [place] [address] Thaddeus Rodriguez MD LAB_1 Performing Organization Address City/State/ZIP Code Phon e Number [facility] [phone] Rheumatoid Factor, Quant (07/14/2016 2:41 PM CDT) athologist Signature Quant. Rheum. <15 0 - 30 [facility] Factor IU/ml [facility] Specimen Anatomical Collection Method Collection Time Receive d Time (Source) Location / / Volume Laterality 07/14/2016 2:41 PM 7 2:44 CDT PM CDT Narrative [facility] - 07/14/2016 6:55 PM C DT Performed at [facility], [address] [place] [address] ??[phone] Thaddeus Rodriguez MD LAB_1 Performing Organization Address City/[facility]/ZIP Code Phon e Number [facility] [phone] ARNIE Screen (07/14/2016 2:41 PM CDT) P athologist Signature ARNIE Screen Negative NEG [facility] Specimen Anatomical Collection Method Collection Time Receive d Time (Source) Location / / Volume Laterality 07/14/2016 2:41 PM 7 2:44 CDT PM CDT Narrative [facility] - 07/15/2016 1:24 PM C DT Performed at [facility], [address] [place] [address] ??[phone] Thaddeus Rodriguez MD LAB_1 Performing Organization Address City/[facility]/ZIP Code Phon e Number [facility] [phone] (ABNORMAL) C-Reactive Protein (07/14/2016 2:41 PM CDT) Patholo gist Method Time Signature C-Reactive 4.1 (H) 0.0 - 0.7 [facility] Protein mg/dL [facility] Comment: Note: results are expressed in mg/dL. Specimen Anatomical Collection Method Collection Time Receive d Time (Source) Location / / Volume Laterality 07/14/2016 2:41 PM 7 2:44 CDT PM CDT Narrative [facility] - 07/14/2016 6:58 PM C DT Performed at [facility], [address] [place] [address] ??[phone] Thaddeus Rodriguez MD LAB_1 Performing Organization Address City/[facility]/ZIP Code Phon e Number [facility] [phone] Basic Metabolic Panel (07/14/2016 2:41 PM CDT) [...] 07/14/2016 6:58 PM C DT Performed at [facility], [address] [place] [address] ??[phone] Thaddeus Rodriguez MD LAB_1 Performing Organization Address City/[facility] Code Phon e Number [facility] [phone] ESR (07/14/2016 2:41 PM CDT) athologist Signature ESR 2 0 - 15 [facility] mm/hr Specimen Anatomical Collection Method Collection Time Receive d Time (Source) Location / / Volume Laterality 07/14/2016 2:41 PM 7 2:44 CDT PM CDT Narrative [facility] - 07/14/2016 9:09 PM C DT Performed at [facility], [address] [place] [address] ??[address] Thaddeus Rodriguez MD LAB_1 Performing Organization Address City/[facility]/ZIP Code Phon e Number [facility] [phone] (ABNORMAL) Uric Acid (07/14/2016 2:41 PM CDT) P athologist Signature Uric Acid 7.5 (H) 3.5 - 7.2 [facility] mg/dl Specimen Anatomical Collection Method Collection Time Receive d Time (Source) Location / / Volume Laterality 07/14/2016 2:41 PM 7 2:44 CDT PM CDT Narrative [facility] - 07/14/2016 6:58 PM C DT Performed at [facility], [address] [place] [address] ??[address] Thaddeus Rodriguez MD LAB_1 Performing Organization Address City/[facility] Code Phon e Number [facility] [phone] documented in this encounter Visit Diagnoses Diagnosis Encounter for long-term (current) use of medications Encounter for long-term (current) use of other medications Arthritis Arthropathy, unspecified, site unspecifi ed documented in this encounter Care Teams Fruit Sorter Relationship Specialty Start Date End Date Kristine Brown MD PCP - General Family Practice 03/25/13 [address] [place] [address] documented as of this encounter
--- OUTSIDE RECORDS SUMMARY | 2022-02-15 07:42 | XMS_ITS | Encounter Summary ---
:1945 Author Organization [facility] Address [address] [place] [address] Care Team Providers Name Role Phone Kristine Brwon MD Primary Care Provider Reason for Visit Reason Comments Routine Eye Exam BRENNAN 04/01/14 Boysen, DVA and NVA more difficult especially having difficulty with intermediate distance, no glare or halos at night, no pain or discomfort Encounter Details Date Type Department Care Team Description 11/05/2015 Office Visit [facility] Roberto Carlos Hernandez S, Visit for eye and vision exa m (Primary Dx); [address] OD Myopia, bilateral; [place], [place] [address] Regular astigmatism, bilater al; [phone] Presbyopia Social History Tobacco Use Types Packs/Day [...] 8:20 AM CDT [facility]. Many tests [...] the clinic in the future? Appointment Center: [phone] Eye Dept: [phone] Online Services: [email or web address] For after hours care, call the CareLine at [phone] or . We look forward to taking [...] Presbyopia documented in this encounter Care Teams Finisher Tailor Apprentice Relationship Specialty Start Date End Date Kristine Brown MD PCP - General Family Practice 03/25/13 [address] [place] [address] documented as of this encounter
--- OUTSIDE RECORDS SUMMARY | 2022-02-15 07:42 | XMS_ITS | Encounter Summary ---
:1945 Author Organization [facility] Address [address] [place] [address] Care Team Providers Name Role Phone Kristine Brown MD Primary Care Provider Reason for Referral Consult/Transfer Care (Routine) - Closed Specialty Diagnoses / Procedures Referred By Contact Refer red To Contact Diagnoses Gout, unspecified cause, unspecified chronicity, unspecified site Prateek Britton MD Ford, Rhea S, MD [address] [facility] [address] [place] [address] [place] [address] Fax: Referral ID Status Reason Start Date Expiration Date Visits Requ ested Visits Authorized [id number] Closed 07/27/2016 10/26/2017 1 1 Scheduling Instructions Your provider has recommended an appoint ment to follow up on your high blood pressure. A material scheduler will contact you t o assist you in setting up this appointment. If you prefer, you can contact your [facility] clinic to schedule. There are no co-pays for medication therapy managemen t (clinical pharmacist) or nurse blood pressure checks. Reason for Visit Reason Comments Consult, New Patient Consult/Transfer Care (Routine) - Closed Specialty Diagnoses / Procedures Referred By Contact Refer red To Contact Diagnoses [place] [address] [place], [place] [address] Referral ID Status Reason Start Date Expiration Date Visits Requ ested Visits Authorized [id number] Closed 07/14/2016 10/13/2017 1 1 Encounter Details Date Type Department Care Team Description 07/27/2016 Office Visit [facility] 401 Prateek Britton G out, unspecified Rheumatology Clinic cause, unspecified 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 HTN (hypertension) ([facility]) Nurse managed 04/09/2013 ??? History of basal [...] of bilateral DIPs, PIPs, MCP joints. Normal hand-under water assistant without pain Knee - no joint effusion [...] Uric Acid ??? Hypertension (HTN) Follow Up (Cxs215) ??? allopurinol (ZYLOPRIM) 100 MG tablet ??? [...] Gout, unspecified Orde red: 07/27/2016 Follow Up (Zoh181) cause, unspecified chronicity, unspecified site documented as [...] PM C DT Performed at [facility], [address] ??[phone] Prateek Britton MD LAB_1 Performing Organization Address City/State/ZIP Code Phon e Number [facility] [phone] Creatinine / GFR (2017 2:56 PM CDT) Analysis Performed At [facility] logist Time Signature Creatinine 1.08 0.73 - [...] PM C DT Performed at [facility], [address] [place] [address] ??[phone] Prateek Britton MD LAB_1 Performing Organization Address City/[facility]/ZIP Code Phon e Number [facility] [phone] ALT (SGPT) (2017 2:56 PM CDT) athologist Signature ALT (SGPT) 25 0 - 55 U/L [facility] Specimen Anatomical Collection Method Collection Time Receive d Time (Source) Location / / Volume Laterality 2017 2:56 PM 7 3:01 CDT PM CDT Narrative [facility] - 2017 7:18 PM C DT Performed at [facility], [address] [place] [address] ??[phone] Prateek Britton MD LAB_1 Performing Organization Address [facility] Phon e Number [facility] [phone] AST (2017 2:56 PM CDT) P athologist Signature AST (SGOT) 19 10 - 40 U/L [facility] Specimen Anatomical Collection Method Collection Time Receive d Time (Source) Location / / Volume Laterality 2017 2:56 PM 7 3:01 CDT PM CDT Narrative [facility] - 2017 7:18 PM C DT Performed at [facility], [address] [place] [address] ??[phone] Prateek Britton MD LAB_1 Performing Organization Address City/[facility]/ZIP Code Phon e Number [facility] [phone] (ABNORMAL) Complete Blood Count-W/Diff (2017 2:56 PM CDT) [facility] gist Method Time Signature WBC 4.7 [...] [facility] Lymph 20 % [facility] Mcminn 9 % [facility] Eos 2 % [facility] Baso 0 % [facility] Neutrophil 3.2 1.8 - 7.7 [facility] Absolute k/ul [facility] Lymph Absolute 0.9 (L) 1.0 - 4.8 [facility] k/ul [facility] Mcminn Absolute 0.4 0.1 - 0.7 [facility] k/ul [...] PM C DT Performed at [facility], [address] [place] [address] ??[address] Praetek Britton MD LAB_1 Performing Organization Address City/State/ZIP Code Phon e Number [facility] [phone] Uric Acid (10/26/2016 9:01 AM CDT) athologist Signature Uric Acid 6.5 3.5 - 7.2 [facility] mg/dl Specimen Anatomical Collection Method Collection Time Receive d Time (Source) Location / / Volume Laterality 10/26/2016 9:01 AM 7 9:03 CDT AM CDT Narrative [facility] - 10/26/2016 12:10 PM CDT Performed at [address] ??[phone] Prateek Britton MD LAB_1 Performing Organization Address [facility] Phon e Number [facility] [phone] Creatinine / GFR (10/26/2016 9:01 AM CDT) [...] - 10/26/2016 12:10 PM CDT Performed at [address] ??[address] Prateek Britton MD LAB_1 Performing Organization Address [facility] Phon e Number [facility] [phone] ALT (SGPT) (10/26/2016 9:01 AM CDT) athologist Signature ALT (SGPT) 23 0 - 55 U/L [facility] Specimen Anatomical Collection Method Collection Time Receive d Time (Source) Location / / Volume Laterality 10/26/2016 9:01 AM 7 9:03 CDT AM CDT Narrative [facility] - 10/26/2016 12:10 PM CDT Performed at [address] ??[phone] Prateek Britton MD LAB_1 Performing Organization Address [facility]/ZIP [facility] Phon e Number [facility] [phone] AST (10/26/2016 9:01 AM CDT) P athologist Signature AST (SGOT) 17 10 - 40 U/L [facility] Specimen Anatomical Collection Method Collection Time Receive d Time (Source) Location / / Volume Laterality 10/26/2016 9:01 AM 07/05/201 7 9:03 CDT AM CDT Narrative [facility] - 10/26/2016 12:10 PM CDT Performed at [address] ??[phone] Prateek Britton MD LAB_1 Performing Organization Address City/State/ZIP Code Phon e Number [facility] [phone] (ABNORMAL) Complete Blood Count-W/Diff (10/26/2016 9:01 AM CDT) [facility] Method Time Signature WBC 6.3 4.0 - [...] [facility] Lymph 13 % [facility] Mcminn 9 % [facility] Eos 2 % [facility] Baso 0 % [facility] Neutrophil 4.7 1.8 - 7.7 [facility] Absolute k/ul [facility] Lymph Absolute 0.8 (L) 1.0 - 4.8 [facility] k/ul [facility] Mcminn Absolute 0.6 0.1 - 0.7 [facility] k/ul [...] 10/26/2016 1:21 PM C DT Performed at [facility], [address] [place] [address] ??[phone] Prateek Britton MD LAB_1 Performing Organization Address City/State/ZIP Code Phon e Number [facility] [phone] (ABNORMAL) Uric Acid (08/12/2016 7:53 AM CDT) P athologist Signature Uric Acid 7.4 (H) 3.5 - 7.2 [facility] mg/dl Specimen Anatomical Collection Method Collection Time Receive d Time (Source) Location / / Volume Laterality 08/12/2016 7:53 AM 7 7:54 CDT AM CDT Narrative [facility] - 08/12/2016 12:22 PM CDT Performed at [facility], [address] [place] [address] ??[address] Prateek Britton MD LAB_1 Performing Organization Address City/[facility] Code Phon e Number [facility] [phone] (ABNORMAL) Creatinine / GFR (08/12/2016 7:53 AM [...] - 08/12/2016 12:22 PM CDT Performed at [facility], [address] [place] [address] ??[address] Prateek Britton MD LAB_1 Performing Organization Address City/State/ZIP Code Phon e Number [facility] [phone] ALT (SGPT) (08/12/2016 7:53 AM CDT) P athologist Signature ALT (SGPT) 31 0 - 55 U/L [facility] Specimen Anatomical Collection Method Collection Time Receive d Time (Source) Location / / Volume Laterality 08/12/2016 7:53 AM 7 7:54 CDT AM CDT Narrative [facility] - 08/12/2016 12:22 PM CDT Performed at [facility], [address] [place] [address] ??[phone] Prateek Britton MD LAB_1 Performing Organization Address City/[facility] Phon e Number [facility] [phone] AST (08/12/2016 7:53 AM CDT) athologist Signature AST (SGOT) 23 10 - 40 U/L [facility] Specimen Anatomical Collection Method Collection Time Receive d Time (Source) Location / / Volume Laterality 08/12/2016 7:53 AM 7 7:54 CDT AM CDT Narrative [facility] - 08/12/2016 12:22 PM CDT Performed at [facility], [address] [place] [address] ??[phone] Prateek Britton MD LAB_1 Performing Organization Address City/[facility] Phon e Number [facility] [phone] (ABNORMAL) Complete Blood Count-W/Diff (08/12/2016 7:53 AM CDT) [facility] gist Method Time Signature WBC 3.0 [...] [facility] Lymph 26 % [facility] Mcminn 19 % [facility] Eos 6 % [facility] Baso 0 % [facility] Neutrophil 1.4 (L) 1.8 - 7.7 [facility] Absolute k/ul [facility] Lymph Absolute 0.8 (L) 1.0 - 4.8 [facility] k/ul [facility] Mcminn Absolute 0.6 0.1 - 0.7 [facility] k/ul [...] 08/12/2016 1:36 PM C DT Performed at [facility], [address] [place] [address] ??[phone] Prateek Britton MD LAB_1 Performing Organization Address [facility] Phon e Number [facility] [phone] Creatinine / GFR (07/27/2016 8:53 AM CDT) [...] PM C DT Performed at [facility], [address] [place] [address] ??[phone] Prateek Britton MD LAB_1 Performing Organization Address City/[facility] Phon e Number [facility] [phone] ALT (SGPT) (07/27/2016 8:53 AM CDT) P athologist Signature ALT (SGPT) 26 0 - 55 U/L [facility] Specimen Anatomical Collection Method Collection Time Receive d Time (Source) Location / / Volume Laterality 07/27/2016 8:53 AM 7 8:56 CDT AM CDT Narrative [facility] - 07/27/2016 1:15 PM C DT Performed at [facility], [address] [place] [address] ??[phone] Prateek Britton MD LAB_1 Performing Organization Address [facility] Phon e Number [facility] [phone] AST (07/27/2016 8:53 AM CDT) P athologist Signature AST (SGOT) 18 10 - 40 U/L [facility] Specimen Anatomical Collection Method Collection Time Receive d Time (Source) Location / / Volume Laterality 07/27/2016 8:53 AM 7 8:56 CDT AM CDT Narrative [facility] - 07/27/2016 1:15 PM C DT Performed at [facility], [address] [place] [address] ??[phone] Prateek Britton MD LAB_1 Performing Organization Address City/[facility] Phon e Number [facility] [phone] Complete Blood Count-W/Diff (07/27/2016 8:53 AM CDT) [...] [facility] Lymph 22 % [facility] Mcminn 13 % [facility] Eos 3 % [facility] Baso 0 % [facility] Neutrophil 3.0 1.8 - 7.7 [facility] Absolute k/ul [facility] Lymph Absolute 1.1 1.0 - 4.8 [facility] k/ul [facility] Mcminn Absolute 0.7 0.1 - 0.7 [facility] k/ul [...] 07/27/2016 1:48 PM C DT Performed at [facility], [address] [place] [address] ??[phone] Prateek Britton MD LAB_1 Performing Organization Address City/[facility] Phon e Number [facility] [phone] (ABNORMAL) Uric Acid (07/27/2016 8:53 AM CDT) P athologist Signature Uric Acid 8.1 (H) 3.5 - 7.2 [facility] mg/dl Specimen Anatomical Collection Method Collection Time Receive d Time (Source) Location / / Volume Laterality 07/27/2016 8:53 AM 7 8:56 CDT AM CDT Narrative [facility] - 07/27/2016 1:15 PM C DT Performed at [facility], [address] [place] [address] ??[phone] Prateek Britton MD LAB_1 Performing Organization Address City/[facility] Phon e Number [facility] [phone] documented in this encounter Visit Diagnoses Diagnosis Gout, unspecified cause, unspecified chr onicity, unspecified site - Primary Gout, unspecified cause, unspecified chr onicity, unspecified site Gout, unspecified cause, unspecified chr onicity, unspecified site Gout, unspecified cause, unspecified chr onicity, unspecified site Gout, unspecified cause, unspecified chr onicity, unspecified site documented in this encounter Care Teams News Library Director Relationship Specialty Start Date End Date Kristine Brown MD PCP - General Family Practice 03/25/13 [address] [place], [place] [phone] documented as of this encounter
--- OUTSIDE RECORDS SUMMARY | 2022-02-15 07:42 | XMS_ITS | Encounter Summary ---
:1945 Author Organization [facility] Address [address] [place] [address] Care Team Providers Name Role Phone Kristine Brown MD Primary Care Provider Reason for Visit Reason Comments Concerns right foot-gout? Health Maintenance Communication HM usually thru the V A per pt Encounter Details Date Type Department Care Team Description 05/19/2016 Office Visit [facility] Logan Espitia MD Arthralgia of right Practice [address] [facility] foot (Primary Dx) [address] [place] [address] [phone] Social History Tobacco Use Types Packs/Day Years [...] Comments Blood Pressure 140/79 05/19/2016 9:46 AM PLUSH BRUSHER Pulse 81 05/19/2016 9:46 AM PLUSH BRUSHER Temperature 37 ??C (98.6 ??F) 05/19/2016 9:41 AM PLUSH BRUSHER Respiratory Rate 14 05/19/2016 9:41 AM PLUSH BRUSHER Oxygen Saturation - - Inhaled Oxygen Concentration - - Weight 105.9 kg (233 lb 6 oz) 05/19/2016 9:41 AM PLUSH BRUSHER Height 182.2 cm (5' 11.75) 05/19/2016 9:41 AM PLUSH BRUSHER Body Mass Index 31.87 05/19/2016 9:41 AM PLUSH BRUSHER documented in this encounter Patient Instructions Patient [...] your doctor if you can take an icvp-fit-wfscrzn medicine. ?? Eat less seafood and red [...] can you learn more? 1. Go to [employer] or [employer]. 2. Enter E531 in the search box. Current as of: June 17, 2015 Content Version: 11.0 ?? [id number] Stellarray. H BRUSHER documented in this encounter Progress Notes Logan [...] years ago. Patient recently followed at the [facility] and underwent prostate biopsy 10 days ago which was apparently benign. He is due for lab work here but states he had lab work at the [place] in February and plans to bring those [...] with allopurinol if diagnosis of gout confirmed. H BRUSHER documented in this encounter Plan of Treatment Not on filedocumented as of this encounter Visit Diagnoses Diagnosis Arthralgia of right foot - Primary Pain in joint, ankle and foot documented in this encounter Care Teams Director Of Intelligence Relationship Specialty Start Date End Date Kristine Brown MD PCP - General Family Practice 03/25/13 [address] [place] [address] documented as of this encounter
--- OUTSIDE RECORDS SUMMARY | 2022-02-15 07:42 | XMS_ITS | Encounter Summary ---
:1945 Author Organization [email or web address] Address [address] [place] [address] Care Team Providers Name Role Phone Kristine Brown MD Primary Care Provider Reason for Visit Reason Comments BLOOD PRESSURE CHECK Consult/Transfer Care (Routine) - Closed Specialty Diagnoses / Procedures Referred By Contact Refer red To [place] Kristine Brown [place] [id number] [place] [address] [phone] Referral ID Status Reason Start Date Expiration Date Visits Requ ested Visits Authorized [id number] Closed 02/16/2015 05/17/2016 1 1 Encounter Details Date Type Department Care Team Description 02/27/2015 Nursing Visit [facility] hypertension Department (Primary Dx) [address] [place] [address] 24 Social History Tobacco Use Types Packs/Day [...] Comments Blood Pressure 165/102 02/27/2015 8:29 AM SHIPPING LEAD Pulse 67 02/27/2015 8:29 AM SHIPPING LEAD Temperature - - Respiratory Rate 16 02/27/2015 8:19 AM SHIPPING LEAD Oxygen Saturation - - Inhaled Oxygen Concentration [...] Brown. Appointment scheduled 03/13/15 Belia Hoff LPN PING LEAD documented in this encounter Plan of Treatment Not on filedocumented as of this encounter Visit Diagnoses Diagnosis Essential hypertension (HRC) - Primary Unspecified essential hypertension documented in this encounter Care Teams Map Drafter Relationship Specialty Start Date End Date Kristine Brown MD PCP - General Family Practice 03/25/13 [address] [place] [address] documented as of this encounter
--- OUTSIDE RECORDS SUMMARY | 2022-02-15 07:42 | XMS_ITS | Encounter Summary ---
:1945 Author Organization [facility] Address [address] [place] [address] Care Team Providers Name Role Phone Kristine Brown MD Primary Care Provider Reason for Referral Consult/Transfer Care (Routine) - Closed Specialty Diagnoses / Procedures Referred By Contact [place] [address] [place], [place] [address] Referral ID Status Reason Start Date Expiration Date Visits Requ ested Visits Authorized [id number] Closed 02/16/2015 05/17/2016 1 1 Scheduling Instructions Your provider [facility] A bee keeper will contact you within the next 3 busin ess days to assist you in setting up this appointment. Reason for Visit Reason Comments MEDICATION CHECK and lab f/u Health Maintanence Declined Encounter Details Date Type Department Care Team Description 02/16/2015 Office Visit [facility] Kristine Brown MD Essential hypertension (Primary Dx); Practice [address] [place] [address] [address] [place] [address] [phone] Social History Tobacco Use Types Packs/Day Years [...] documented in this encounter Progress Notes Kristine rBown MD - 02/16/2015 8:09 AM CDT Chief [...] taking medication on day he returns for CT for repeat BP check. Sodium/potassium/creatinine from 01/30 within acceptable limits. 2. Impaired fasting glucose: BS of 115 from 01/30; lifestyle modifications reviewed. RTC for YUN/FBS in 6 months. Kristine Brown MD 02/16/2015, 12:31 PM documented in this encounter Plan of Treatment Scheduled Referrals Name Type Priority Associated Diagnoses [facility] Referral Routine Ordered: 1 ADULT/PEDS [[id number]] documented as of this encounter Visit Diagnoses Diagnosis Essential hypertension (HRC) - Primary Unspecified essential hypertension Prediabetes Other abnormal glucose documented in this encounter Care Teams Salad Chef Relationship Specialty Start Date End Date Kristine Brown MD PCP - General Family Practice 03/25/13 [address] [place] [address] documented as of this encounter
--- OUTSIDE RECORDS SUMMARY | 2022-02-15 07:42 | XMS_ITS | Encounter Summary ---
:1945 Author Organization [employer] Address [address], [place] [address] Care Team Providers Name Role Phone Kristine Brown MD Primary Care Provider Encounter Details Date Type Department Care Team Description 07/27/2016 Lab Visit [facility] Gout, un specified cause, Laboratory unspecified chronicity, [address] unspecified site [place], [place] [id number] Social History Tobacco Use Types Packs/Day Years [...] 1:15 PM C DT Performed at [facility], [address] [place] [address] ??[phone] Prateek Britton MD LAB_1 Performing Organization Address City/[facility] Phon e Number [facility] [phone] ALT (SGPT) (07/27/2016 8:53 AM CDT) athologist Signature ALT (SGPT) 26 0 - 55 U/L [facility] Specimen Anatomical Collection Method Collection Time Receive d Time (Source) Location / / Volume Laterality 07/27/2016 8:53 AM 7 8:56 CDT AM CDT Narrative [facility] - 07/27/2016 1:15 PM C DT Performed at [facility], [address] [place] [address] ??[phone] Prateek Britton MD LAB_1 Performing Organization Address City/[facility] Phon e Number [facility] [phone] AST (07/27/2016 8:53 AM CDT) P athologist Signature AST (SGOT) 18 10 - 40 U/L [facility] Specimen Anatomical Collection Method Collection Time Receive d Time (Source) Location / / Volume Laterality 07/27/2016 8:53 AM 7 8:56 CDT AM CDT Narrative [facility] - 07/27/2016 1:15 PM C DT Performed at [facility], [address] [place] [address] ??[phone] Prateek Britton MD LAB_1 Performing Organization Address [facility] Phon e Number [facility] [phone] Complete Blood Count-W/Diff (07/27/2016 8:53 AM CDT) [...] [facility] Lymph 22 % [facility] Lea 13 % [facility] Eos 3 % [facility] Baso 0 % [facility] Neutrophil 3.0 1.8 - 7.7 [facility] k/ul [facility] Lymph Absolute 1.1 1.0 - 4.8 [facility] k/ul [facility] Lea Absolute 0.7 0.1 - 0.7 [facility] k/ul [...] 07/27/2016 1:48 PM C DT Performed at [facility] [employer] [facility], [address] [place] [address] ??[phone] Prateek Britton MD LAB_1 Performing Organization Address City/State/ZIP Code Phon e Number [facility] [phone] (ABNORMAL) Uric Acid (07/27/2016 8:53 AM CDT) P athologist Signature Uric Acid 8.1 (H) 3.5 - 7.2 [facility] mg/dl Specimen Anatomical Collection Method Collection Time Receive d Time (Source) Location / / Volume Laterality 07/27/2016 8:53 AM 7 8:56 CDT AM CDT Narrative [facility] - 07/27/2016 1:15 PM C DT Performed at [facility], [address] [place] [address] ??[phone] Prateek Britton MD LAB_1 Performing Organization Address City/State/ZIP Code Phon e Number [facility] [phone] documented in this encounter Visit Diagnoses Diagnosis Gout, unspecified cause, unspecified chr onicity, unspecified site documented in this encounter Care Teams Plumbing Service Technician Relationship Specialty Start Date End Date Kristine Brown MD PCP - General Family Practice 03/25/13 [address] [place] [address] documented as of this encounter
--- OUTSIDE RECORDS SUMMARY | 2022-02-15 07:42 | XMS_ITS | Encounter Summary ---
:1945 Author Organization [employer] Address [address] [place] [address] Care Team Providers Name Role Phone Kristine Brown MD Primary Care Provider Encounter Details Date Type Department Care Team Description 04/09/2013 Orders Only [facility] HTN (hypertension) [address] [place], [place] [address] Social History Tobacco Use [...] AM HTN (hypertension) Results for this PANEL ON CALL PHARMACY TECHNICIAN procedure are i n the results section. documented in this encounter Results (ABNORMAL) BASIC METABOLIC PANEL (04/09/2013 10:32 AM ON CALL PHARMACY TECHNICIAN) [facility] Method Time Signature BUN 16 7 - [...] / Volume Laterality 04/09/2013 10:32 04/09/2013 AM ON CALL PHARMACY TECHNICIAN 10:33 AM ON CALL PHARMACY TECHNICIAN Narrative [facility] - 04/09/2013 3:[address] Performed at [facility], [address] [place] [address] ??[phone] Kristine Brown MD LAB_1 Performing Organization Address City/State/ZIP Code Phon e Number [facility] [phone] documented in this encounter Visit Diagnoses Diagnosis HTN (hypertension) (HRC) Unspecified essential hypertension documented in this encounter Care Teams Spray Painter Helper Relationship Specialty Start Date End Date Kristine Brown MD PCP - General Family Practice 03/25/13 [address] [place] [address] documented as of this encounter
--- OUTSIDE RECORDS SUMMARY | 2022-02-15 07:42 | XMS_ITS | Encounter Summary ---
:1945 Author Organization [employer] [facility] Address [address] [place] [address] Care Team Providers Name Role Phone Kristine Brown MD Primary Care Provider Encounter Details Date Type Department Care Team Description 01/30/2015 Orders Only [facility] Essential hypertension; [address] [facility] Screening for deficiency ane hayden; [place], [place] [address] Screening PSA (prostate spec ific antigen) [phone] Social History Tobacco Use Types Packs/Day Years [...] - 01/30/2015 12:26 PM CDT Performed at [facility], [address] [place] [address] ??[phone] Kristine Brown MD LAB_1 Performing Organization Address [facility] Phon e Number [facility] [phone] MICROALB/CREAT RATIO (01/30/2015 7:35 AM CDT) [facility] Method Time Signature Albumin, <0.5 mg/dl [...] 01/30/2015 2:36 PM C DT Performed at [facility], [address] [place] [address] ??[address] Kristine Brown MD LAB_1 Performing Organization Address City/[facility]/ZIP [facility] Phon e Number [facility] [phone] (ABNORMAL) HEMOGRAM/PLTS/DIFF (01/30/2015 7:35 AM CDT) [facility] Method Time Signature WBC 4.6 4.0 [...] [facility] Lymph 26 % [facility] Lee 12 % [facility] Eos 5 % [facility] Baso 0 % [facility] Neutrophil 2.6 1.8 - 7.7 [facility] k/ul [facility] Lymph Absolute 1.2 1.0 - 4.8 [facility] k/ul [facility] Lee Absolute 0.5 0.1 - 0.7 [facility] k/ul [...] - 01/30/2015 11:58 AM CDT Performed at [facility], [address] [place] [address] ??[phone] Kristine Brown MD LAB_1 Performing Organization Address City/State/ZIP Code Phon e Number [facility] [phone] (ABNORMAL) BASIC METABOLIC PANEL,FASTING (01/30/2015 7:35 AM CDT) [facility] Method Time Signature Sodium 142 135 - [...] - 01/30/2015 12:26 PM CDT Performed at [facility], [address] [place] [address] ??[phone] Kristine Brown MD LAB_1 Performing Organization Address City/[facility] Phon e Number [facility] [phone] LIPID PANEL AND DIRECT LDL(IF NEEDED) (01/30/2015 7:35 AM CDT) [facility] Method Time Signature Hours Fasting 12 hours [...] - 01/30/2015 12:26 PM CDT Performed at [facility], [address] [place] [address] ??[address] Kristine Brown MD LAB_1 Performing Organization Address City/[facility] Phon e Number [facility] [phone] documented in this encounter Visit Diagnoses Diagnosis Essential hypertension (HRC) Unspecified essential hypertension Screening for deficiency anemia Screening for other and unspecified defi ciency anemia Screening PSA (prostate specific antigen ) Special screening for malignant neoplasm of prostate documented in this encounter Care Teams Senior Net Software Developer Relationship Specialty Start Date End Date Kristine Brown MD PCP - General Family Practice 03/25/13 [address] [place] [address] documented as of this encounter
--- OUTSIDE RECORDS SUMMARY | 2022-02-15 07:42 | XMS_ITS | Encounter Summary ---
:1945 Author Organization [email or web address] Address [address] [place] [address] Care Team Providers Name Role Phone Kristine Brown MD Primary Care Provider Reason for Visit Reason Comments BLOOD PRESSURE CHECK Encounter Details Date Type Department Care Team Description 02/27/2015 Telephone [facility] Kristine Brown MD BLOOD PRESSURE CHECK Practice [address] [place] [address] [place], [place] [address] [phone] (Wo rk) Social History Tobacco Use Types [...] intwo weeks Dr. Brown. Appointment scheduled 03/13/15 Patient voices understanding of medication dosage increase. Agrees with plan of care. Belia Hoff LP PRODUCTION ASSISTANT documented in this encounter Plan of Treatment Not on filedocumented as of this encounter Visit Diagnoses Not on filedocumented in this encounter Care Teams I&C Tech Relationship Specialty Start Date End Date Kristine Brown MD PCP - General Family Practice 03/25/13 [address] [place] [address] documented as of this encounter
--- OUTSIDE RECORDS SUMMARY | 2022-02-15 07:42 | XMS_ITS | Encounter Summary ---
:1945 Author Organization [employer] Address [address] [place] [address] Care Team Providers Name Role Phone Kristine Brown MD Primary Care Provider Reason for Referral Consult/Transfer Care (Routine) - Closed Specialty Diagnoses / Procedures Referred By Contact [place] [address] [place], [place] [address] Referral ID Status Reason Start Date Expiration Date Visits Requ ested Visits Authorized [id number] Closed 01/16/2015 04/16/2016 1 1 Scheduling Instructions [...] Department Care Team Description 01/16/2015 Office Visit [facility] Kristine Brown MD Encounter for routine adult health exami nation without abnormal findings (Primary Dx); Practice [address] [facility] Essential hypertension; [address] [place], [place] Screening for deficiency ane hayden; [place] [address] History of basal cell cancer; [address] Screening PSA (prostate spec ific antigen) Social [...] is also seen [place]/exam, will be due [...] Priority Associated Diagnoses Order S [facility] DERMATOLOGY Referral Routine Ordered: 2014 CONSULT-ADULT/PEDS documented [...] - 01/30/2015 12:26 PM CDT Performed at [facility], [address] [place] [address] ??[phone] Kristine rBown MD LAB_1 Performing Organization Address City/State/ZIP Code Phon e Number [facility] [phone] MICROALB/CREAT RATIO (01/30/2015 7:35 AM CDT) [facility] gist Method Time Signature Albumin, <0.5 [...] 01/30/2015 2:36 PM C DT Performed at [facility], [address] [place] [address] ??[address] Kristine Brown MD LAB_1 Performing Organization Address City/State/ZIP Code Phon e Number [facility] [phone] (ABNORMAL) HEMOGRAM/PLTS/DIFF (01/30/2015 7:35 AM CDT) [facility] Method Time Signature WBC 4.6 4.0 [...] [facility] Lymph 26 % [facility] Upson 12 % [facility] Eos 5 % [facility] Baso 0 % [facility] Neutrophil 2.6 1.8 - 7.7 [facility] k/ul [facility] Lymph Absolute 1.2 1.0 - 4.8 [facility] k/ul [facility] [place] Absolute 0.5 0.1 - 0.7 [facility] k/ul [...] - 01/30/2015 11:58 AM CDT Performed at [facility], [address] [place] [address] ??[phone] Kristine Brown MD LAB_1 Performing Organization Address City/State/ZIP Code Phon e Number [facility] [phone] (ABNORMAL) BASIC METABOLIC PANEL,FASTING (01/30/2015 7:35 AM CDT) [facility] Nubity Method Time Signature Sodium 142 135 - [...] - 01/30/2015 12:26 PM CDT Performed at [facility], [address] [place] [address] ??[address] Kristine Brown MD LAB_1 Performing Organization Address City/[facility]/ZIP Code Phon e Number [facility] [phone] LIPID PANEL AND DIRECT LDL(IF NEEDED) (01/30/2015 7:35 AM CDT) [facility] Nubity Method Time Signature Hours Fasting 12 hours [...] - 01/30/2015 12:26 PM CDT Performed at [facility], [address] ??[address] Kristine Brown MD LAB_1 Performing Organization Address City/State/ZIP Code Phon e Number [facility] [phone] documented in this encounter Visit Diagnoses Diagnosis [...] prostate documented in this encounter Care Teams Stunner Animal Relationship Specialty Start Date End Date Kristine Brown MD PCP - General Family Practice 03/25/13 [address] [place] [address] documented as of this encounter
--- OUTSIDE RECORDS SUMMARY | 2022-02-15 07:42 | XMS_ITS | Encounter Summary ---
:1945 Author Organization [facility] Address [address] [place] [address] Care Team Providers Name Role Phone Kristine Brown MD Primary Care Provider Reason for Referral Consult/Transfer Care (Routine) - Closed Specialty Diagnoses / Procedures Referred By Contact [place] [address] [place], [place] [address] Referral ID Status Reason Start Date Expiration Date Visits Requ ested Visits Authorized [id number] Closed 03/13/2015 06/11/2016 1 1 Scheduling Instructions Your provider has recommended an appoint ment with a [facility] nurse. A spares scheduler will contact you within the next 3 busin ess days to assist you in setting up this appointment. ITION TECH Reason for Visit Reason Comments BP CHECK, Encounter Details Date Type Department Care Team Description 03/13/2015 Office Visit [facility] Kristine Brown MD Essential hypertension Practice [address] [facility] (Primary Dx) [address] [place] [address] [phone] Social History Tobacco Use Types Packs/Day Years [...] Comments Blood Pressure 151/97 03/13/2015 10:17 AM NUTRITION TECH Pulse 62 03/13/2015 10:17 AM NUTRITION TECH Temperature - - Respiratory Rate 16 03/13/2015 9:55 AM NUTRITION TECH Oxygen Saturation - - Inhaled Oxygen Concentration [...] or chronic kidney disease, if you are -[place], or if you are older than age [...] Where can you learn more? Go to [employer]Patterns and enter H967 in the search box. Current as of: July 03, 2013 Content Version: 10.4 ?? [id number] Wochit. ITION TECH documented in this encounter Progress Notes Kristine [...] weeks. Kristine Brown MD 03/14/2015, 12:56 PM ITION TECH documented in this encounter Plan of Treatment Scheduled Referrals Name Type Priority Associated Diagnoses Order S [facility] NURSE APPOINTMENT Referral Routine Ordered: 1 05/13/2014 ADULT/PEDS [[id number]] documented as of this encounter Results CREATININE / GFR (03/13/2015 10:28 AM NUTRITION TECH) Analysis Performed At Patho logist Time Signature Creatinine 1.10 0.66 - [facility] 1.25 mg/dl [facility] GFR, Estimated >60 >60 [facility] ml/min/1.7 LAB[facility]ATORIES 3m2 GFR, Est., If >60 >60 [facility] Black ml/min/1.7 LABORATORIES 3m2 Specimen Anatomical Collection Method Collection Time Receive d Time (Source) Location / / Volume Laterality 03/13/2015 10:28 03/13/2015 AM NUTRITION TECH 10:29 AM NUTRITION TECH Narrative [facility] - 03/13/2015 3:[address] Performed at [facility], [address] [place] [address] ??[phone] Kristine Brown MD LAB_1 Performing Organization Address City/[facility]/ZIP Code Phon e Number [facility] [phone] POTASSIUM (03/13/2015 10:28 AM NUTRITION TECH) athologist Signature Potassium 5.0 3.5 - 5.3 [facility] mmol/L Specimen Anatomical Collection Method Collection Time Receive d Time (Source) Location / / Volume Laterality 03/13/2015 10:28 03/13/2015 AM NUTRITION TECH 10:29 AM NUTRITION TECH Narrative [facility] - 03/13/2015 3:[address] Performed at [facility], [address] [place] [address] ??[address] Kristine Brown MD LAB_1 Performing Organization Address City/State/ZIP Code Phon e Number [facility] [phone] SODIUM (03/13/2015 10:28 AM NUTRITION TECH) athologist Signature Sodium 142 135 - 145 [facility] mmol/L Specimen Anatomical Collection Method Collection Time Receive d Time (Source) Location / / Volume Laterality 03/13/2015 10:28 03/13/2015 AM NUTRITION TECH 10:29 AM NUTRITION TECH Narrative [facility] - 03/13/2015 3:[address] Performed at [facility], [address] ??[address] Kristine Brown MD LAB_1 Performing Organization Address City/State/ZIP Code Phon e Number [facility] [phone] documented in this encounter Visit Diagnoses Diagnosis Essential hypertension (HRC) - Primary Unspecified essential hypertension Essential hypertension (HRC) Unspecified essential hypertension documented in this encounter Care Teams Thermometer Tester Relationship Specialty Start Date End Date Kristine Brown MD PCP - General Family Practice 03/25/13 [address] [place] [address] documented as of this encounter
--- OUTSIDE RECORDS SUMMARY | 2022-02-15 07:42 | XMS_ITS | Encounter Summary ---
:1945 Author Organization [employer] Address [address] [place] [address] Care Team Providers Name Role Phone Kristine Brown MD Primary Care Provider Reason for Visit Reason Comments BP CHECK,NURSE Consult/Transfer Care (Routine) - Closed Specialty Diagnoses / Procedures Referred By Contact Refer red [place] Kristine Brown [place] [id number] [place] [address] 06 Referral ID Status Reason Start Date Expiration Date Visits Requ ested Visits Authorized [id number] Closed 03/13/2015 06/11/2016 1 1 Encounter Details Date Type Department Care Team Description 04/20/2015 Nursing Visit [facility] Routin e adult health Department maintenance (Primary Dx) [address] [place] [address] Social History Tobacco Use Types [...] Comments Blood Pressure 132/81 04/20/2015 9:41 AM HEALTH SERVICES RN Pulse 75 04/20/2015 9:41 AM HEALTH SERVICES RN Temperature - - Respiratory Rate - - [...] encounter sent to PCP Radha Wallis LPN TH SERVICES RN documented in this encounter Plan of Treatment Not on filedocumented as of this encounter Visit Diagnoses Diagnosis Routine adult health maintenance - Prima ry Routine general medical examination at a health care facility documented in this encounter Care Teams Cv Tech Relationship Specialty Start Date End Date Kristine Brown MD PCP - General Family Practice 03/25/13 [address] [place] [address] documented as of this encounter
--- OUTSIDE RECORDS SUMMARY | 2022-02-15 07:42 | XMS_ITS | Encounter Summary ---
:1945 Author Organization [email or web address] Address [address] [place] [address] Care Team Providers Name Role Phone Kristine Brown MD Primary Care Provider Encounter Details Date Type Department Care Team Description 03/13/2015 Orders Only [facility] Essential hypertension [address] [place], [place] [address] Social History Tobacco Use [...] AM Essential hyperte nsion Results for this APPLICATIONS ENGINEER procedure are i n the results section. SODIUM Routine 03/13/2015 10:28 AM Essential hypertensio n Results for this APPLICATIONS ENGINEER procedure are i n the results section. POTASSIUM Routine 03/13/2015 10:28 AM Essential hypertensio n Results for this APPLICATIONS ENGINEER procedure are i n the results section. documented in this encounter Results CREATININE / GFR (03/13/2015 10:28 AM APPLICATIONS ENGINEER) [facility] Time Signature Creatinine 1.10 0.66 - [facility] 1.25 mg/dl [facility] GFR, Estimated >60 >60 [facility] ml/min/1.7 [facility]ATORIES 3m2 GFR, Est., If >60 >60 [facility] Black ml/min/1.7 LAB[facility]ATORIES 3m2 Specimen Anatomical Collection Method Collection Time Receive d Time (Source) Location / / Volume Laterality 03/13/2015 10:28 03/13/2015 AM APPLICATIONS ENGINEER 10:29 AM APPLICATIONS ENGINEER Narrative [facility] - 03/13/2015 3:[address] Performed at [facility], [address] [place] [address] ??[phone] Kristine Brown MD LAB_1 Performing Organization Address City/State/[facility] Code Phon e Number [facility] [phone] POTASSIUM (03/13/2015 10:28 AM APPLICATIONS ENGINEER) athologist Signature Potassium 5.0 3.5 - 5.3 [facility] mmol/L Specimen Anatomical Collection Method Collection Time Receive d Time (Source) Location / / Volume Laterality 03/13/2015 10:28 03/13/2015 AM APPLICATIONS ENGINEER 10:29 AM APPLICATIONS ENGINEER Narrative [facility] - 03/13/2015 3:[address] Performed at [facility], [address] [place] [address] ??[phone] Kristine Brown MD LAB_1 Performing Organization Address City/State/ZIP Code Phon e Number [facility] [phone] SODIUM (03/13/2015 10:28 AM APPLICATIONS ENGINEER) athologist Signature Sodium 142 135 - 145 [facility] mmol/L Specimen Anatomical Collection Method Collection Time Receive d Time (Source) Location / / Volume Laterality 03/13/2015 10:28 03/13/2015 AM APPLICATIONS ENGINEER 10:29 AM APPLICATIONS ENGINEER Narrative [facility] - 03/13/2015 3:[address] Performed at [facility], [address] [place] [address] ??[address] Kristine Brown MD LAB_1 Performing Organization Address City/State/[facility] Phon e Number [facility] [phone] documented in this encounter Visit Diagnoses Diagnosis Essential hypertension (HRC) Unspecified essential hypertension documented in this encounter Care Teams Copier Field Service Technician Relationship Specialty Start Date End Date Kristine Brown MD PCP - General Family Practice 03/25/13 [address] [place] [address] documented as of this encounter
--- OUTSIDE RECORDS SUMMARY | 2022-02-15 07:42 | XMS_ITS | Encounter Summary ---
:1945 Author Organization [employer] Address [address] [place] [address] Care Team Providers Name Role Phone Kristine Brown MD Primary Care Provider Reason for Visit Reason Comments BP CHECK,NURSE Encounter Details Date Type Department Care Team Description 11/30/2015 Nursing Visit [facility] hypertension Department (Primary Dx) [address] [place] [address] 24 Social History Tobacco Use Types [...] hypertension documented in this encounter Care Teams Shellfish Farming Supervisor Relationship Specialty Start Date End Date Kristine Brown MD PCP - General Family Practice 03/25/13 [address] [place] [address] documented as of this encounter
--- OUTSIDE RECORDS SUMMARY | 2022-02-15 07:43 | XMS_ITS | Encounter Summary ---
:1945 Author Organization [employer] Address [address] [place] [address] Care Team Providers Name Role Phone Phillip Brown MD Primary Care Provider Reason for Visit Reason Comments MEDICATION CHECK Encounter Details Date Type Department Care Team Description 03/26/2013 Office Visit [facility] Phillip Brown MD HTN (hypertension) Practice [address] [place] [address] (Primary Dx) [address] [place] [address] [phone] Social History Tobacco Use Types Packs/Day Years [...] Comments Blood Pressure 132/92 03/26/2013 10:20 AM ELEMENTARY TUTOR Pulse 77 03/26/2013 10:01 AM ELEMENTARY TUTOR Temperature - - Respiratory Rate - - Oxygen Saturation - - Inhaled Oxygen Concentration - - Weight 104.2 kg (229 lb 12.8 oz) 03/26/2013 9:55 AM ELEMENTARY TUTOR Height 181.6 cm (5' 11.5) 03/26/2013 9:55 AM ELEMENTARY TUTOR Body Mass Index 31.6 03/26/2013 9:55 AM ELEMENTARY TUTOR documented in this encounter Patient Instructions Patient InstructionsPhillip Brown MD - 03/26/2013 10:25 AM CST Return to clinic for nursing visit in 2 weeks for repeat BP check. Please schedule a lab only visit at this time. ENTARY TUTOR documented in this encounter Progress Notes Phillip [...] signs given.Phillip Brown MD 03/27/2013, 6:41 PM ENTARY TUTOR documented in this encounter Plan of Treatment Not on filedocumented as of this encounter Procedures Procedure Name Priority Date/Time Associated Diagnosis Comme nts ECG 12-LEAD ROUTINE Routine 03/26/2013 10:39 AM HTN (hypertens ion) Results for this ELEMENTARY TUTOR procedure are i n the results section. documented in this encounter Results (ABNORMAL) BASIC METABOLIC PANEL (04/09/2013 10:32 AM ELEMENTARY TUTOR) [facility] Method Time Signature BUN 16 7 [...] / Volume Laterality 04/09/2013 10:32 04/09/2013 AM ELEMENTARY TUTOR 10:33 AM ELEMENTARY TUTOR Narrative [facility] - 04/09/2013 3:[address] Performed at [facility], [address] [place] [address] ??[phone] Phillip Brown MD LAB_1 Performing Organization Address City/State/ZIP Code Phon e Number [facility] [phone] ECG 12-LEAD ROUTINE [[id number]] (03/26/2013 10:39 AM ELEMENTARY TUTOR) P athologist Signature Ventricular Rate 63 BPM [facility] Atrial Rate 63 BPM [facility] P-R Interval 166 ms [facility] QRS Duration 96 ms [facility] QT 398 ms [facility] QTc 407 ms [facility] P [place] 20 degrees [facility] Specimen (Source) Anatomical Collection Method Collection Time Re ceived Time Location / / Volume Laterality 03/26/2013 10:39 AM ELEMENTARY TUTOR Narrative [facility] - 03/27/2013 2:42 PM ELEMENTARY TUTOR Sinus rhythm Inferior infarct , age undetermined Abnormal ECG No previous ECGs available Confirmed by PHILLIP BROWN ([id number]), school photograph editor EDWARDO WILDE ([id number]) on 03/27/2013 2:42:51 PM Procedure Note Phillip Brown MD - 03/27/2013 Sinus rhythm Inferior infarct , age undetermined Abnormal ECG No previous ECGs available Confirmed by PHILLIP BROWN ([id number]), school photograph editor W EDWARDO THOMAS ([id number]) on 03/27/2013 2:42:51 PM Phillip Brown MD EKG Performing Organization Address City/State/ZIP Code Phon e Number [facility] [address] [place] [address] documented in this encounter Visit Diagnoses Diagnosis HTN (hypertension) (HRC) - Primary Unspecified essential hypertension HTN (hypertension) (HRC) Unspecified essential hypertension documented in this encounter Care Teams Sketch Artist Relationship Specialty Start Date End Date Phillip Brown MD PCP - General Family Practice 03/25/13 [address] [place] [address] documented as of this encounter
--- OUTSIDE RECORDS SUMMARY | 2022-02-15 07:43 | XMS_ITS | Encounter Summary ---
:1945 Author Organization [facility] Address [address] [place] [address] Care Team Providers Name Role Phone Unassigned, Provider Primary Care Provider Unavailable Reason for Referral Consult/Transfer Care (Routine) - Closed Specialty Diagnoses / Procedures Referred By Contact Refer red To Contact Lucia Quinonez PA -C [address] [facility] [address] [place] [address] Referral ID Status Reason Start Date Expiration Date Visits Requ ested Visits Authorized [id number] Closed 2012 1 1 Scheduling Instructions Your provider has recommended an appoint ment with [facility]. You may call [phone] to schedule your appoi ntment. If you prefer, a manufacturing scheduler will contact you within the next 3 business d ays to assist you in setting up this appointment. Reason for Visit Reason Onset Date Comments RESULTS, TEST 2012 Encounter Details Date Type Department Care Team Description 2012 [facility] 401 Lucia Quinonez PA-C RESULTS, TEST Surgery Clinic [address] [facility] [address] Diogenes Morrison. [address] [place] [address] [place] [address] [phone] (Wo rk) Social History Tobacco Use Types [...] to get full body skin check with Dot Net Developer. He will call and schedule and i'll put the orders in. Lucia Quinonez PA-C documented in this encounter Plan of Treatment Scheduled Referrals Name Type Priority Associated Diagnoses Order S niki DERMATOLOGY Referral Routine Ordered: 2011 CONSULT-ADULT/PEDS documented as of this encounter Visit Diagnoses Not on filedocumented in this encounter Care Teams Switch Repairer Relationship Specialty Start Date End Date Unassigned, Provider PCP - General 01/26/00 03/24/[address] [place] [address] documented as of this encounter
--- OUTSIDE RECORDS SUMMARY | 2022-02-15 07:43 | XMS_ITS | Encounter Summary ---
:1945 Author Organization [facility] Address [address] [place] [address] Care Team Providers Name Role Phone Unassigned, Provider Primary Care Provider Unavailable Reason for Visit Reason Comments BLOOD PRESSURE CHECK Encounter Details Date Type Department Care Team Description 11/30/2012 [facility] (Primary Practice [address] [facility] Dx) [address] [place] [address] [phone] Social History Tobacco Use Types Packs/Day Years [...] hypertension documented in this encounter Care Teams Automobile Service Writer Relationship Specialty Start Date End Date Unassigned, Provider PCP - General 01/26/00 03/24/[address] [place] [address] documented as of this encounter
--- OUTSIDE RECORDS SUMMARY | 2022-02-15 07:43 | XMS_ITS | Encounter Summary ---
:1945 Author Organization [employer] Address [address], [place] [address] Care Team Providers Name Role Phone Unassigned, Provider Primary Care Provider Unavailable Encounter Details Date Type Department Care Team Description 11/19/2012 Orders Only [facility] Screening; [address] [facility] Hypertension [place], [place] [address] Social History Tobacco Use [...] encounter Results SODIUM (11/19/2012 8:47 AM CDT) P athologist Signature Sodium 138 135 - 145 [facility] mmol/L Specimen Anatomical Collection Method Collection Time Receive d Time (Source) Location / / Volume Laterality 11/19/2012 8:47 AM 3 8:51 CDT AM CDT Narrative [facility] - 11/19/2012 5:30 PM C DT Performed at [facility], [address] [place] [address] ??[phone] Kristine Brown MD LAB_1 Performing Organization Address City/[facility] Phon e Number [facility] [phone] POTASSIUM (11/19/2012 8:47 AM CDT) athologist Signature Potassium 4.3 3.5 - 5.3 [facility] mmol/L Specimen Anatomical Collection Method Collection Time Receive d Time (Source) Location / / Volume Laterality 11/19/2012 8:47 AM 3 8:51 CDT AM CDT Narrative [facility] - 11/19/2012 5:30 PM C DT Performed at [facility], [address] [place] [address] ??[phone] Kristine Brown MD LAB_1 Performing Organization Address [facility] Phon e Number [facility] [phone] GLUCOSE - FASTING > 8 HRS FASTING (V77.1) (11/19/2012 8:47 AM CDT) athologist Signature Hours Fasting 18 hours [facility] Glucose 100 70 - 100 [facility] mg/dl [facility] Specimen Anatomical Collection Method Collection Time Receive d Time (Source) Location / / Volume Laterality 11/19/2012 8:47 AM 3 8:51 CDT AM CDT Narrative [facility] - 11/19/2012 5:30 PM C DT Performed at [facility], [address] [place] [address] ??[phone] Kristine Brown MD LAB_1 Performing Organization Address City/[facility] Phon e Number [facility] [phone] (ABNORMAL) CREATININE / GFR (11/19/2012 8:47 AM CDT) [facility] Method Time Signature Creatinine 1.23 0.66 - [...] 11/19/2012 5:30 PM C DT Performed at [facility], [address] [place] [address] ??[phone] Kristine Brown MD LAB_1 Performing Organization Address City/[facility] Phon e Number [facility] [phone] LIPID PANEL AND DIRECT LDL(IF NEEDED) (11/19/2012 8:47 AM CDT) [facility] Method Time Signature Hours Fasting 18 hours [...] 11/19/2012 5:30 PM C DT Performed at [facility], [address] [place] [address] ??[phone] Kristine Brown MD LAB_1 Performing Organization Address City/[facility] Phon e Number [facility] [phone] documented in this encounter Visit Diagnoses Diagnosis Screening Screening for unspecified condition Hypertension (HRC) Unspecified essential hypertension documented in this encounter Care Teams Signs And Displays Sales Representative Relationship Specialty Start Date End Date Unassigned, Provider PCP - General 01/26/00 03/24/[address] [place] [address] documented as of this encounter
--- OUTSIDE RECORDS SUMMARY | 2022-02-15 07:43 | XMS_ITS | Encounter Summary ---
:1945 Author Organization [employer] Address [address] [place] [address] Care Team Providers Name Role Phone Kristine Brown MD Primary Care Provider Reason for Visit Reason Comments BP CHECKMD Encounter Details Date Type Department Care Team Description 04/09/2013 Office Visit [facility] Kristine Brown MD HTN (hypertension) Practice [address] [place] [address] (Primary Dx) [address] [place] [address] [phone] Social History Tobacco Use Types Packs/Day Years [...] Comments Blood Pressure 116/70 04/09/2013 10:25 AM CABIN CLEANER Pulse 81 04/09/2013 10:04 AM CABIN CLEANER Temperature - - Respiratory Rate 16 04/09/2013 10:04 AM CABIN CLEANER Oxygen Saturation - - Inhaled Oxygen Concentration [...] today's labs.Kristine Brown MD 04/10/2013, 8:03 PM N CLEANER documented in this encounter Plan of Treatment Not on filedocumented as of this encounter Visit Diagnoses Diagnosis HTN (hypertension) (HRC) - Primary Unspecified essential hypertension documented in this encounter Care Teams Manager Medicare Relationship Specialty Start Date End Date Kristine Brown MD PCP - General Family Practice 03/25/13 [address] [place] [address] documented as of this encounter
--- OUTSIDE RECORDS SUMMARY | 2022-02-15 07:43 | XMS_ITS | Encounter Summary ---
:1945 Author Organization [employer] Address [address] [place] [address] Care Team Providers Name Role Phone Unassigned, Provider Primary Care Provider Unavailable Encounter Details Date Type Department Care Team Description 10/15/2012 Orders Only [facility] Hypertension [address] [place], [place] [address] Social History Tobacco Use [...] Results MICROALB/CREAT RATIO (10/15/2012 10:53 AM CDT) [facility] Method Time Signature Albumin, <0.5 [...] 10/15/2012 4:09 PM C DT Performed at [facility], [address] [place] [address] ??[phone] Kristine Brown MD LAB_1 Performing Organization Address [facility] Phon e Number [facility] [phone] BASIC METABOLIC PANEL (10/15/2012 10:53 AM CDT) [...] 10/15/2012 4:52 PM C DT Performed at [facility] [facility], [address] [place] [address] ??[phone] Kristine Brown MD LAB_1 Performing Organization Address [facility] Phon e Number [facility] [phone] documented in this encounter Visit Diagnoses Diagnosis Hypertension (HRC) Unspecified essential hypertension documented in this encounter Care Teams Physicians Assistant Relationship Specialty Start Date End Date Unassigned, Provider PCP - General 01/26/00 03/24/[address] [place] [address] documented as of this encounter
--- OUTSIDE RECORDS SUMMARY | 2022-02-15 07:43 | XMS_ITS | Encounter Summary ---
:1945 Author Organization [facility] Address [address] [place] [address] Care Team Providers Name Role Phone Unassigned, Provider Primary Care Provider Unavailable Encounter Details Date Type Department Care Team Description 04/24/1989 PN Conversion Only PLASTER PATTERN CASTER [address] [place] [address] Social History Tobacco Use Types Packs/Day Years Used Date Smoking Tobacco: Never Assessed Sex Assigned at Date Recorded Not on file documented as of this encounter Plan of Treatment Not on filedocumented as of this encounter Visit Diagnoses Not on filedocumented in this encounter Care Teams Ventilation Equipment Tender Relationship Specialty Start Date End Date Unassigned, Provider PCP - General 01/26/00 03/24/[address] [place] [address] documented as of this encounter
--- OUTSIDE RECORDS SUMMARY | 2022-02-15 07:43 | XMS_ITS | Encounter Summary ---
:1945 Author Organization [facility] Address [address] [place] [address] Care Team Providers Name Role Phone Unassigned, [...] Department Care Team Description 11/09/2011 Office Visit [facility] Shay Burt, SOTO Examination of eyes and vision (Primary Dx); [address] [facility]. [address] Pres[place]opia [place], [place] [address] [place], [place] [phone] [address] Social History Tobacco Use Types Packs/Day Years Used Date Smoking Tobacco: Never Assessed Sex Assigned at Date Recorded Not on file documented as of this encounter Patient Instructions Patient InstructionsShay Burt, OD - 11/09/2011 10:22 AM CDT Thank you for choosing [facility] for your eye care needs. Many tests [...] the clinic in the future? Appointment Center: [phone] Eye Dept: [phone] Online Services: [email or web address] For after hours care, call the CareLine at [phone] or . We look forward to taking [...] Presbyopia documented in this encounter Care Teams Certified Marine Mechanic Relationship Specialty Start Date End Date Unassigned, Provider PCP - General 01/26/00 03/24/13 [address] [place] [address] documented as of this encounter
--- OUTSIDE RECORDS SUMMARY | 2022-02-15 07:43 | XMS_ITS | Encounter Summary ---
:1945 Author Organization [employer] Address [address] [place] [address] Care Team Providers Name Role Phone Unassigned, Provider Primary Care Provider Unavailable Reason for Visit Reason Comments Suture/Staple Removal Health Maintanence Declined flu shot. Encounter Details Date Type Department Care Team Description 01/27/2012 Office Visit [facility], [place] [address] [place], [place] [id number] Encounter for [place] [address] [place] [address] of sutures (Primary [address] [facility] Dx) [place] [address] Social History Tobacco Use Types [...] ry documented in this encounter Care Teams Hardening Machine Operator Helper Relationship Specialty Start Date End Date Unassigned, Provider PCP - General 01/26/00 03/24/[address] [place] [address] documented as of this encounter
--- OUTSIDE RECORDS SUMMARY | 2022-02-15 07:43 | XMS_ITS | Encounter Summary ---
:1945 Author Organization [employer] Address [address] [place] [address] Care Team Providers Name Role Phone Unassigned, Provider Primary Care Provider Unavailable Reason for Visit Reason Comments PE Encounter Details Date Type Department Care Team Description 10/15/2012 Office Visit [facility] Kristine Brown MD Preventative health care (Primary Dx); Practice [id number] [place] [address] Hypertension; [address] [place], [place] Screening; [place] [address] Foot pain [address] [phone] Social History Tobacco Use Types Packs/Day Years [...] presents with ??? PE Last seen at [facility] for RHM, last exam about one year ago. He is also seen Q [facility] years at [facility] for agent orange screening/exam, will be due [...] his BP's were still high on the livwppcnme-EBQT-hjauzq history of low potassium. 2. HM: never had a colonoscopy; not interested in colonoscopy or FIT testing. He thinks the last time he had PSA screening was 3 years ago-states that he has 'all his BW done when he's at the [facility]. 3. H/o agent orange exposure: has screening [...] Not on filedocumented as of this encounter Results LIPID PANEL AND DIRECT LDL(IF NEEDED) (11/19/2012 8:47 AM CDT) [facility] Method Time Signature Hours Fasting 18 [...] 11/19/2012 5:30 PM C DT Performed at [facility], [address] [place] [address] ??[id number] Kristine Brown MD LAB_1 Performing Organization Address City/[facility] Phon e Number [facility] [phone] (ABNORMAL) CREATININE / GFR (11/19/2012 8:47 AM CDT) [facility] Method Time Signature Creatinine 1.23 0.66 - [...] 11/19/2012 5:30 PM C DT Performed at [facility], [address] [place] [address] ??[id number] Kristine Brown MD LAB_1 Performing Organization Address City/[facility] Phon e Number [facility] [phone] GLUCOSE - FASTING > 8 HRS FASTING (V77.1) (11/19/2012 8:47 AM CDT) P athologist Signature Hours Fasting 18 hours [facility] Glucose 100 70 - 100 [facility]dl [facility] Specimen Anatomical Collection Method Collection Time Receive d Time (Source) Location / / Volume Laterality 11/19/2012 8:47 AM 3 8:51 CDT AM CDT Narrative [facility] - 11/19/2012 5:30 PM C DT Performed at [facility], [address] [place] [address] ??[id number] Kristine Brown MD LAB_1 Performing Organization Address [facility] Code Phon e Number [facility] [phone] POTASSIUM (11/19/2012 8:47 AM CDT) athologist Signature Potassium 4.3 3.5 - 5.3 [facility] mmol/L Specimen Anatomical Collection Method Collection Time Receive d Time (Source) Location / / Volume Laterality 11/19/2012 8:47 AM 3 8:51 CDT AM CDT Narrative [facility] - 11/19/2012 5:30 PM C DT Performed at [facility], [address] [place] [address] ??[phone] Kristine Brown MD LAB_1 Performing Organization Address [facility] Phon e Number [facility] [phone] SODIUM (11/19/2012 8:47 AM CDT) athologist Signature Sodium 138 135 - 145 [facility] mmol/L Specimen Anatomical Collection Method Collection Time Receive d Time (Source) Location / / Volume Laterality 11/19/2012 8:47 AM 3 8:51 CDT AM CDT Narrative [facility] - 11/19/2012 5:30 PM C DT Performed at [facility], [address] [place] [address] ??[phone] Kristine Brown MD LAB_1 Performing Organization Address [facility] Phon e Number [facility] [phone] MICROALB/CREAT RATIO (10/15/2012 10:53 AM CDT) [facility] Method Time Signature Albumin, <0.5 mg/dl [...] 10/15/2012 4:09 PM C DT Performed at [facility], [address] [place] [address] ??[id number] Kristine Brown MD LAB_1 Performing Organization Address [facility] Phon e Number [facility] [phone] BASIC METABOLIC PANEL (10/15/2012 10:53 AM CDT) [...] 10/15/2012 4:52 PM C DT Performed at [facility], [address] [place] [address] ??[id number] Kristine Brown MD LAB_1 Performing Organization Address City/[facility] Phon e Number [facility] [phone] documented in this encounter Visit Diagnoses Diagnosis Preventative health care - Primary Routine general medical examination at a health care facility Hypertension ([facility]) Unspecified essential hypertension Screening Screening for unspecified condition Foot pain Pain in limb Hypertension ([facility]) Unspecified essential hypertension Screening Screening for unspecified condition Hypertension ([facility]) Unspecified essential hypertension documented in this encounter Care Teams Employment Programs Analyst Relationship Specialty Start Date End Date Unassigned, Provider PCP - General 01/26/00 03/24/[address] [place] [address] documented as of this encounter
--- OUTSIDE RECORDS SUMMARY | 2022-02-15 07:43 | XMS_ITS | Encounter Summary ---
:1945 Author Organization [facility] Address [address] [place] [address] Care Team Providers Name Role Phone Unassigned, Provider Primary Care Provider Unavailable Reason for Referral Consult/Transfer Care (Routine) - Closed Specialty Diagnoses / Procedures Referred By Contact [place] [address] [place], [place] [address] Referral ID Status Reason Start Date Expiration Date Visits Requ ested Visits Authorized [id number] Closed 01/18/2012 1 1 Scheduling Instructions Your provider has recommended an appoint ment with [facility] Surgery Department. You may call [phone] to schedule yo ur appointment. If you prefer, a operating room scheduler will contact you within the next 3 busin ess days to assist you in setting up this appointment. Reason for Visit Reason Comments Sore BACK Health Maintanence Declined FLU VACCINE Encounter Details Date Type Department Care Team Description 01/18/2012 Office Visit [facility] Chanelle Khan Skin lesion (Primary Practice MD Wild Dx) [address] [facility] [address] [place] [address] [phone] Social History Tobacco Use Types Packs/Day Years [...] his left upper back. He served in [employer]. He returned in 1968. He had a [...] tissue documented in this encounter Care Teams Government Affairs Specialist Relationship Specialty Start Date End Date Unassigned, Provider PCP - General 01/26/00 03/24/[address] [place] [address] documented as of this encounter
--- OUTSIDE RECORDS SUMMARY | 2022-02-15 07:43 | XMS_ITS | Encounter Summary ---
:1945 Author Organization [employer] Address [address] [place] [address] Care Team Providers Name Role Phone Unassigned, Provider Primary Care Provider Unavailable Reason for Visit Reason Comments SKIN LESION Consult/Transfer Care (Routine) - Closed Specialty Diagnoses / Procedures Referred By Contact [place] [address] [place], [place] [address] Referral ID Status Reason Start Date Expiration Date Visits Requ ested Visits Authorized [id number] Closed 01/18/2012 1 1 Encounter Details Date Type Department Care Team Description 01/20/2012 [facility] Visit [facility] Lucia Quinonez KSchuyler n lesion (Primary [facility] PA-C Dx) [address] [place] [address] [address] [place], [place] [id number] Social History Tobacco Use Types Packs/Day Years [...] Name Priority Date/Time Associated Diagnosis Comme nts SURGICAL PATH Routine 01/20/2012 7:00 AM Skin lesion Results for this CDT procedure are i n the results section . documented in this encounter Results SURGICAL PATH (01/20/2012 7:00 AM CDT) [facility] Method Time Signature 9911 (NOTE) [facility] Surgical Final Report Patient Name: ARMEN IQBAL Taken: 01/20/2012 Received: 01/20/2012 Reported: 2012 Physician(s): Lucia Quinonez ? Final Pathologic Diagnosis Skin, mid upper back, excision -- ?1. ??Basal cell carcinoma, nodular type with fibrosis, ulcerated ?2. ??All resection margins are negative for carcinoma sbk/01/24/2012 Electronically Signed Out By ? Delia Romero MD ([id number]) Procedures/Addenda Clinical History Mid-upper back skin lesion Gross Description The specimen is received in formalin and labeled with the james steiner's name. ??The specimen consists of a 4.1 [...] seven slides. ?? sbk/01/24/2012 Delia Romero MD ([id number]) [facility] Department of Pathology [address] [place] [address] ??[id number] Specimen Anatomical Collection Method Collection Time Receive d Time (Source) Location / / Volume Laterality EXCISION OF SKIN / 01/20/2012 7:00 AM 7:24 Unknown CDT PM CDT Lucia Quinonez PA-C LAB_1 Performing Organization Address City/State/ZIP Code Phon e Number [facility] [employer] [phone] [facility] [address] [phone] documented in this encounter Visit Diagnoses Diagnosis Skin lesion - Primary Unspecified disorder of skin and subcuta neous tissue documented in this encounter Care Teams [employer] Collection Operator Relationship Specialty Start Date End Date Unassigned, Provider PCP - General 01/26/00 03/24/[address] [place] [address] documented as of this encounter
--- OUTSIDE RECORDS SUMMARY | 2022-02-15 07:43 | XMS_ITS | Continuity of Care Document ---
:1945 Author Organization [facility] Care Team Providers Name Role Phone [facility] Unavailable Unavailable Problems Combined list of problems [...] Nose. Benign essential Active [place] hypertension HCS (SNOMED CT 7603321) Elevated PSA Active Condition [place] [facility] Erythrocytosis [facility] [place] [facility] Gout [facility] [place] [facility] H/O: vasectomy Active [facility] [place] [facility] [facility] Health Maintenance Active [place] (ICD-9-CM V65.9) HCS History of Active [place] tonsillectomy [facility] Hyperlipidemia Active [facility] [place] [facility] Obstructive sleep Active [place] apnea of adult [facility] Diagnosis: [facility] ICD-10-CM I10 [facility]CS Essential (primary) hypertensionwith Provider Comments: Benign essential hypertension (SCT 0636207) Diagnosis: [facility] ICD-10-CM C44.41 HCS Basal cell carcinoma of skin of scalp and neckwith Provider Comments: Basal cell carcinoma of skin of scalp and neck Diagnosis: Active Diagnosis [facility] ICD-10-CM Z71.89 HCS Other specified counselingwith Provider Comments: Other specified Counseling Diagnosis: Active Diagnosis [facility] [place] ICD-10-CM Z85.828 HC S Personal history of [...] ASPIRIN TAKE ONE ORALLY ACTIVE TATYANA,MAY 05/ [place] 325MG TAB TABLET ICE L 2009 [facility] BY [facility] EVERY DAY KETOCONAZOL SHAMPOO TOPICA 11/28/2021 [id number] A MON,GABR 11/29/ [place] E 2% SCALP, LLY 1 IEL J 2020 [facility] SHAMPOO LATHER HCS FOR 5 MINUTES THEN RINSE 3 TIMES-A- WEEK FOR SEBORRHE A LISINOPRIL TAKE ONE ORALLY ACTIVE LIUSA,L 12/08/ [place] 40MG TAB TABLET 2015 [facility] EVERY DAY MULTIVITAMI TAKE ONE ORALLY ACTIVE LUISA,L 12/08 / [place] NS CAP/TAB TABLET 2015 [facility] EVERY DAY NAPROXEN TAKE ORALLY ACTIVE TATYANA,MAY 05/ [place] 250MG TAB ONE-HALF ICE L 2009 [facility] TABLET [facility]CS BY MOUTH PRN SILDENAFIL TAKE ONE ORALLY 05/21/2021 [id number] B ATY,GABR 05/20/ [place] CITRATE TABLET 1 [...] atus Comments Source Given By Number Code Platemaker COVID-19 2 complet PFR; [place] (PFIZER), 2020 ed [id number]; [place] [facility] MRNA, LNP-S, 02 HCS PF, 30 1 MCG/0.3 ML DOSE COVID-19 1 complet PFR; [place] (PFIZER), 2020 ed [id number]; [facility] MRNA, LNP-S, 02 HCS PF, 30 1 MCG/0.3 ML DOSE PNEUMOCOCCAL complet merc k and [place] POLYSACCHARID 2018 ed co,R01 790 [facility] E [id number] 0,[id number] HC S 20 TDAP complet sanofi [place] 2018 ed pastuer [facility] [facility] A XJ5L2,10/ HCS / PNEUMOCOCCAL complet [facility] [place] CONJUGATE PCV 2016 ed PHARM, M79 [facility] 13 321,12/08 HCS ZOSTER LIVE complet [facility] and [place] 2016 ed CO,[id number] [facility] [facility] 1,74VCX06 HCS 16 Results Combined list of recent chemistry, hematology and other laboratory results from Department of Defense and Veterans Affairs, ranging from 15 months to all on record, depending upon the facility. Order Results Value Reference Date Interpretation Specimen Commen ts Source Name Range ALT/SGPT ALANINE 22 <55 - 55 01/11 Specimen Type: PLASMA [place] AMINOTRANS No comment e ntered. IS [facility] ERASE Ordering Provid er: ADAM MORAN [ENZYMATIC Report Relelaly sed Date/Time: May 29, 2020 05:02 AM ACTIVITY/VO Reporting L ab: [facility] LUME] IN [address] [place] [facility] [address] SERUM OR Performing Lab : [facility] PLASMA [address] [facility] [address] [facility] [address] CREATININ CREATININE 1.0 0.7 - 1.2 01/11 Specimen Type: PLASMA [place] E(INCLUDE [MASS/VOLUM No comment entered. IS [facility] S EGFR) E] IN SERUM Ordering Pr ovider: LUISA,ADAM E OR PLASMA Report Releas ed Date/Time: May 29, 2020 05:02 AM Reporting Lab: [facility] [address] [place] [facility] [address] Performing Lab: [facility] [address] [place] [address] CREATININ GLOMERULAR 79 60 01/11 Specimen Ty pe: PLASMA [place] E(INCLUDE FILTRATION /2021 No comment entered. IS [facility] S EGFR) RATE/1.73 Ordering Prov ider: ADAM MORAN SQ Report Released Date/Time: May 29, 2020 05:02 AM M.PREDICTED Reporting L ab: [facility] [VOLUME [place] [address] RATE/AREA] Performing L ab: [facility] IN SERUM, [address] [facility] [address] PLASMA OR BLOOD BY CREATININE- BASED FORMULA (CKD-EPI) CBC LEUKOCYTES 5.01 4.0 - 11.0 01/11 Specimen T ype: BLOOD [place] [#/VOLUME] /2021 No comment en tered. IS CT HCS IN BLOOD BY Ordering Pr ovider: ADAM MORAN AUTOMATED Report Releas ed Date/Time: May 29, 2020 05:02 AM COUNT Reporting Lab: [facility] [place] [address] Performing Lab: [facility] [place] [address] CBC ERYTHROCYTE 6.38 4.6 - 6.2 01/11 H Specimen T ype: BLOOD [place] S /2021 No comment enter ed. IS CT HCS [#/VOLUME] Ordering Pro vider: ADAM MORAN IN BLOOD BY Report Rele ased Date/Time: May 29, 2020 05:02 AM AUTOMATED Reporting Lab : [facility] COUNT [address] [place] [facility] [address] Performing Lab: [facility] [address] [place] [facility] [address] CBC HEMOGLOBIN 19.1 13.5 - 01/11 H Specimen Type : BLOOD [place] [MASS/VOLUM 17.9 /2021 No comment e ntered. IS CT HCS E] IN BLOOD Ordering Pr ovider: ADAM MORAN Report Released Date/Time: May 29, 2020 05:02 AM Reporting Lab: [facility] [place] [address] Performing Lab: [facility] [address] [place] [facility] [address] CBC HEMATOCRIT 56.0 41 - 54 01/11 H Specimen Type : BLOOD [place] [VOLUME /2021 No comment enter ed. [facility] FRACTION] Ordering Prov ider: ADAM MORAN OF BLOOD BY Report Rele ased Date/Time: May 29, 2020 05:02 AM AUTOMATED Reporting Lab : [facility] COUNT [address] [place] [facility] [address] Performing Lab: [facility] [address] [place] [facility] [address] CBC MCV 87.8 80 - 100 01/11 Specimen Type: BLOOD [place] [ENTITIC /2021 No comment ente red. [facility] VOLUME] BY Ordering Pro vider: ADAM MORAN AUTOMATED Report Releas ed Date/Time: May 29, 2020 05:02 AM COUNT Reporting Lab: [facility] [address] [place] [facility] [address] Performing Lab: [facility] [address] [place] [facility] [address] CBC MCH 29.9 27 - 33 01/11 Specimen Type: B LOOD [place] [ENTITIC /2021 No comment ente red. [facility] MASS] BY Ordering Provi johnny: ADAM MORAN AUTOMATED Report Releas ed Date/Time: May 29, 2020 05:02 AM COUNT Reporting Lab: [facility] [address] [place] [facility] [address] Performing Lab: [facility] [address] [place] [facility] [address] CBC MCHC 34.1 32.0 - 01/11 Specimen Type: B LOOD [place] [MASS/VOLUM 37.5 /2021 No comment e ntered. [facility] E] BY Ordering Provid er: ADAM MORAN AUTOMATED Report Releas ed Date/Time: May 29, 2020 05:02 AM COUNT Reporting Lab: [facility] [address] [place] [facility] [address] Performing Lab: [facility] [address] [place] [facility] [address] CBC PLATELETS 202 150 - 400 01/11 Specimen Typ e: BLOOD [place] [#/VOLUME] /2021 No comment en tered. [facility] IN [facility]LOOD BY Ordering Pr ovider: LUISA,ADAM E AUTOMATED Report Releas ed Date/Time: May 29, 2020 05:02 AM COUNT Reporting Lab: [facility] [address] [place] [address] Performing Lab: [facility] [address] [place] [address] CBC PLATELET 8.9 7.4 - 10.4 01/11 Specimen Typ e: BLOOD [place] MEAN VOLUME /2021 No comment e ntered. IS [facility] [ENTITIC Ordering Provi johnny: ADAM MORAN VOLUME] IN Report Relea sed Date/Time: May 29, 2020 05:02 AM BLOOD BY Reporting Lab: [facility] AUTOMATED [address] [place] [facility] [address] COUNT Performing Lab: [facility] [address] [place] [address] CBC ERYTHROCYTE 14.4 11.5 - 01/11 Specimen Typ e: BLOOD [place] DISTRIBUTIO 14. No comment e ntered. IS [facility] N WIDTH Ordering Provid er: ADAM MORAN [RATIO] BY Report Relea sed Date/Time: May 29, 2020 05:02 AM AUTOMATED Reporting Lab : [facility] [place] [address] Performing Lab: [facility] [address] [place] [facility] [address] LIPID CHOLESTEROL 168 <199 - 199 01/11 Specimen Type: PLASMA [place] PANEL,NON [MASS/VOLUM /2021 No comment entered. IS [facility] E] IN SERUM Ordering P rovider: ADAM MORAN E OR PLASMA Report Releas ed Date/Time: May 29, 2020 05:02 AM Reporting Lab: [facility] [address] [place] [address] Performing Lab: [facility] [address] [place] [address] LIPID CHOLESTEROL 39 40 01/11 L Specimen Typ e: PLASMA [place] PANEL,NON IN HDL /2021 No comment ent ered. IS [facility] [MASS/VOLUM Ordering P rovider: ADAM MORAN E E] IN SERUM Report Rele ased Date/Time: May 29, 2020 05:02 AM OR PLASMA Reporting Lab : [facility] [address] [place] [address] Performing Lab: [facility] [address] [place] [address] LIPID CHOLESTEROL 98 <99 - 99 01/11 Specimen Ty pe: PLASMA [place] PANEL,NON IN LDL /2021 No comment ent ered. IS [facility] [MASS/VOLUM Ordering P rovider: ADAM MORAN] IN SERUM Report Rele ased Date/Time: May 29, 2020 05:02 AM OR PLASMA Reporting Lab : [facility] [place] [address] CALCULATION Performing Lab: [facility] [address] [place] [address] LIPID CHOLESTEROL 31 <29 - 29 20 H Specimen Ty pe: PLASMA [place] PANEL,NON IN VLDL /2021 No comment ent ered. IS [facility] [MASS/VOLUM Ordering P rovider: ADAM MORAN] IN SERUM Report Rele ased Date/Time: May 29, 2020 05:02 AM OR PLASMA Reporting Lab : [facility] BY [place] [address] CALCULATION Performing Lab: [facility] [place] [address] LIPID CHOLESTEROL 129 <129 - 129 01/11 Specimen Type: PLASMA [place] PANEL,NON NON HDL /2021 No comment ent ered. IS [facility] [MASS/VOLUM Ordering P rovider: ADAM MORAN] IN SERUM Report Rele ased Date/Time: May 29, 2020 05:02 AM OR PLASMA Reporting Lab : [facility] [place] [address] Performing Lab: [facility] [address] [facility] [address] LIPID TRIGLYCERID 157 <149 - 149 01/11 H Specimen Type: PLASMA [place] PANEL,NON E /2021 No comment ent ered. IS [facility] [MASS/VOLUM Ordering P rovider: ADAM MORAN] IN SERUM Report Rele ased Date/Time: May 29, 2020 05:02 AM OR PLASMA Reporting Lab : [facility] [place] [address] Performing Lab: [facility] [place] [address] PSA PROSTATE 6.43 <4.00 - 0920 H Specimen Type: [place] SPECIFIC AG 4.00 No comment e ntered. IS [facility] [MASS/VOLUM Ordering Pr ovider: ADAM MORAN] IN SERUM Report Rele ased Date/Time: May 29, 2020 05:02 AM OR PLASMA Reporting Lab : [facility] [place] [address] Performing Lab: [facility] [address] [facility] [address] [place] [address] ELECTROLY SODIUM 140 136 - 145 01/11 Specimen Typ e: PLASMA [place] AMY/ANION [MOLES/VOLU /2021 No comment entered. IS [facility] GAP ME] IN Ordering Provid er: ADAM MORAN SERUM OR Report Release d Date/Time: May 29, 2020 05:02 AM PLASMA Reporting Lab: [facility] [address] [facility] [address] [place] [facility] [address] Performing Lab: [facility] [place] [address] ELECTROLY POTASSIUM 4.3 3.5 - 5.1 01/11 Specimen T ype: PLASMA [place] AMY/ANION [MOLES/VOLU /2021 No comment entered. IS [facility] GAP ME] IN Ordering Provid er: ADAM MORAN SERUM OR Report Release d Date/Time: May 29, 2020 05:02 AM PLASMA Reporting Lab: [facility] [address] [place] [facility] [address] Performing Lab: [facility] [place] [address] ELECTROLY CHLORIDE 109 98 - 107 01/11 H Specimen Typ e: PLASMA [place] AMY/ANION [MOLES/VOLU /2021 No comment entered. IS [facility] GAP ME] IN Ordering Provid er: ADAM MORAN SERUM OR Report Release d Date/Time: May 29, 2020 05:02 AM PLASMA Reporting Lab: [facility] [address] [facility] [address] [place] [facility] [address] Performing Lab: [facility] [address] [facility] [address] ELECTROLY CARBON 22 22 - 29 01/11 Specimen Type: PLASMA [place] AMY/ANION DIOXIDE, /2021 No comment en tered. IS [facility] GAP TOTAL Ordering Provid er: ADAM MORAN [MOLES/VOLU Report Rele ased Date/Time: May 29, 2020 05:02 AM ME] IN Reporting Lab: [facility] SERUM OR [address] [place] [facility] [address] PLASMA Performing Lab: [facility] [address] [place] [address] ELECTROLY ANION GAP 9 5 - 15 01/11 Specimen Typ e: PLASMA [place] AMY/ANION IN SERUM OR /2021 No comment entered. IS [facility] GAP PLASMA Ordering Provid er: ADAM MORAN Report Released Date/Time: May 29, 2020 05:02 AM Reporting Lab: [facility] [place] [address] Performing Lab: [facility] [address] [facility] [address] GLUCOSE GLUCOSE 101 70 - 100 01/11 H Specimen Type: PLASMA [place] [MASS/VOLUM /2021 No comment e ntered. IS [facility] E] IN SERUM Ordering Pr ovider: ADAM MORAN OR PLASMA Report Releas ed Date/Time: May 29, 2020 05:02 AM Reporting Lab: [facility] [address] [place] [address] Performing Lab: [facility] [place] [address] HEMOGLOBI HEMOGLOBIN 5.8 4.0 - 6.0 01/11 Specimen Type: BLOOD [place] N A1C A1C/HEMOGLO /2021 Comment: Va lues obtained from A1C measurements can vary. For typical A1C assays, a reported value of 7.0 could actually be between 6.7 and 7.3 if measured by a reference method. A reported value of 9.0 IS [facility] BIN.TOTAL could actuall y be between 8.7 and 9.3. Ref: http://www.ngsp.org/CAPdata.asp IN BLOOD Ordering Provi johnny: ADAM MORAN Report Released Date/Time: May 29, 2020 05:02 AM Reporting Lab: [facility] [address] [place] [address] Performing Lab: [facility] [address] [place] [address] TSH THYROTROPIN 2.28 0.35 - 01/11 Specimen Typ e: PLASMA [place] W/REFLEX [UNITS/VOLU 4.94 /2021 No comment entered. IS [facility] TO FREE ME] IN Ordering Provid er: ADAM MORAN T4 SERUM OR Report Release d Date/Time: May 29, 2020 05:02 AM PLASMA Reporting Lab: [facility] [address] [facility] [address] Performing Lab: [facility] [place] [address] AST/SGOT ASPARTATE 17 <34 - 34 01/11 Specimen Typ e: PLASMA [place] AMINOTRANS No comment e ntered. IS [facility] ERASE Ordering Provid er: ADAM MORAN [ENZYMATIC Report Relea sed Date/Time: May 29, 2020 05:02 AM ACTIVITY/VO Reporting L ab: [facility] LUME] IN [address] [place] [facility] [address] SERUM OR Performing Lab : [facility] PLASMA [address] [place] [facility] [address] Vital Signs Combined list of inpatient and outpatient Vital Signs from Department of Defense and Veterans Affairs, ranging from 12 months to all on record, depending upon the facility. Vital Sign Value Date Comments Source SYSTOLIC BLOOD PRESSURE 120 01/11/2022 14:16:34 [facility] DIASTOLIC BLOOD PRESSURE 81 01/11/2022 14:16:34 [facility] PULSE OXIMETRY 93% 01/11/2022 14:16:34 [place] [facility] WEIGHT 241 01/11/2022 14:16:34 [place] [facility] BMI 33kg/m2 01/11/2022 14:16:[address] [place] [address] [facility] PAIN 0 01/11/2022 14:16:34 [place] [facility] PULSE 92 01/11/2022 14:16:[address] [place] [address] [facility] RESPIRATION 18 01/11/2022 14:16:34 [place] [facility] Encounters Combined list of: 1) Encounters from Department of Veterans Affairs facilities going back up to the last 18 months. 2) Encounters from the Department of Defense facilities going back up to 280 months. Location Location Encounter Encounter Reason Attending ADM DC Stat us Disposition Source Details Type Number For Provider Date Date Visit OFFICE O/P 60656-0.61 Diagnos VERNELL,NO 11/27 [place] EST MOD [id number] is: RELL [facility] 30-39 MIN ICD-10- HCS CM Z85.828 Persona l history of other maligna nt neoplas m of skin
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
with Provide r Comment s: [place]al [place] [address]-0.61 Diagnos CHELSEA AC 12/09 [place] EDUCATION [id number] is: /2020 [facility] NOC ICD-10- HCS INDIVID CM Z71.89 Other specifi ed correctional counselor/case manager ing<br/ >with Provide r Comment s: [place] [address]-0.61 Diagnos CHELSEA AC 12/21 [place] EDUCATION [id number] is: /2020 [facility] NOC ICD-10- HCS INDIVID CM Z71.89 Other specifi ed correctional counselor/case manager ing<br/ >with Provide r Comment s: Other specifi ed Senior Revenue Accountant ing INTMD RPR 83382-1.61 Diagnos CELY DUMONT 12/22 [place] S/A/T/EXT [id number] is: IEL R [facility] 2.6-7.5 ICD-10- HCS CM C44.41 Basal cell carcino ma of skin of scalp and neck
with Provide r Comment s: Basal cell carcino ma of skin of scalp and neck Outpatient 35705-3.61 01/13 [place] Encounter [id number] /2020 [place] [facility] Outpatient 21712-0.61 NIEHYAMIL,GL 01/21 [place] Encounter [id number] ORIA E [place] [facility] Outpatient 67230-2.61 05/27 [place] Encounter [id number] /2021 [place] [facility] Outpatient [id number] 01/03 [place] Encounter [id number] /2021 [place] [facility] Outpatient 87152-3.61 LUISA,LA 01/10 [place] Encounter [id number] [facility] OFFICE O/P 92555-4.61 Diagnos ASHUTOSH MORAN 01/11 [place] EST MOD [id number] is: INE [facility] 30-39 MIN ICD-10- HCS CM I10 Essenti al (primar y) hyperte nsion<b r/>with Provide r Comment s: Benign essenti al hyperte nsion (SCT [id number] ) Social History Combined list of available smoking, tobacco, and other social [facility]. Social History Type Response Date Comment Source Tobacco smoking status [facility]-TOBACCO FORMER USER 01/11/2022 [facility]IS History of tobacco use CT-TOBACCO QUIT 15 YRS 01/11/2022 [facility] OR MORE History of tobacco use CT-TOBACCO QUIT 15 YRS 03/20/2019 [facility] OR MORE History of tobacco use CT-TOBACCO FORMER USER 01/17/2018 [facility] History of tobacco use LIFETIME NON-TOBACCO 01/26/2017 [facility] USER History of tobacco use FORMER TOBACCO USER 7Y 12/09/2015 [facility] OR GREATER History of tobacco use FORMER TOBACCO USER 7Y 04/19/2010 [facility] OR GREATER Plan of Care List of future care activities from Department [facility] Affairs facilities. Additional future care activities may be listed in the Assessment and Plan section. Date/Time Care Activity Care Activity Detail Facility 01/20/2022 Consult Order [facility] [place] [facility] Python Developer's Choice
--- OUTSIDE RECORDS SUMMARY | 2022-02-15 07:43 | XMS_ITS | Encounter Summary ---
:1945 Author Organization [facility] Address [address] [place] [address] Care Team Providers Name Role Phone Kristine Brown MD Primary Care Provider Encounter Details Date Type Department Care Team Description 09/29/2009 Correspondence External to External, Provid er MED HX [place] [address] Social History Tobacco Use Types Packs/Day Years Used Date Smoking Tobacco: Never Assessed Sex Assigned at Date Recorded Not on file documented as of this encounter Progress Notes External, Provider - 09/29/2009 12:00 AM CDT TORIAL SUPERVISOR documented in this encounter Plan of Treatment Not on filedocumented as of this encounter Visit Diagnoses Not on filedocumented in this encounter Care Teams Router Machine Operator Relationship Specialty Start Date End Date Kristine Brown MD PCP - General Family Practice 03/25/13 [address] [place] [address] documented as of this encounter
--- OUTSIDE RECORDS SUMMARY | 2022-02-15 07:43 | XMS_ITS | Clinical Summary ---
:1945 Author Organization [facility] [place] [address] Care Team Providers Name Role Phone Miguel [...] Comments Blood Pressure 135/85 06/02/2021 11:51 AM BUSINESS SERVICES ANALYST Pulse 84 06/02/2021 11:51 AM BUSINESS SERVICES ANALYST Temperature - - Respiratory Rate - - Oxygen Saturation 95% 06/02/2021 11:48 AM BUSINESS SERVICES ANALYST Inhaled Oxygen Concentration - - Weight 112.9 kg (249 lb) 06/02/2021 11:48 AM BUSINESS SERVICES ANALYST with s destinee Height - - Body [...] Name Priority Date/Time Associated Diagnosis Comme nts LAB TRACKING EVENT Routine 02/08/2022 9:45 AM CDT PATH TISSUE EXAM Routine 02/08/2022 9:45 AM Resul ts for this CDT procedure are i n the results section. from Last 3 Months Results LAB TRACKING EVENT (02/08/2022 9:45 AM CDT) Specimen Anatomical Collection Method Collection Time Receive d Time (Source) Location / / Volume Laterality Other (Other) Client Collect / 02/08/2022 9:45 AM 01/22 8:56 Unknown CDT PM CDT Joya Zamudio MD LAB BILL ONLY Performing Organization Address City/State/ZIP Code Phon e Number [facility] [address] [place] [address] LABORATORY-CENTRAL 1999 LABORATORY PATH TISSUE EXAM (02/08/2022 9:45 AM CDT) Component Value Ref Test Analysis Performed Pathologis t Range Method Time At Signature Case Report Pathology Report ?Case: [id number] ? [facility] Authorizing Provider: ??Joya Bustos MD ??Collected: ? 02/08/2022 0945 ? 2 3:44 PM HEALTH Ordering Location: ? [facility] CENTRAL LAB ?Received: ?02/08/2022 2125 ? CDT [facility]- Pathologist: ? Zeeshan Alex, ? CENTRAL ? MD ? LABORATORY Specimens: [...] ?? a. Polyp size: 2 mm JANAE Gaitan ?? b. Resection: Complete MD YURIDIA on [...] HEALTH Please contact us with any questions ([facility] [phone]). CDT LABORATORY- CENTRAL Formalin-fixed, paraffin-emb edded tissue is available for ancillary studies, to request please contact the [facility] ([phone]). Neoplastic tissue available for ancillary studies: FFPE [...] is strongly suspected clinically please contact us ([facility] GI Pathology Service ). Rarely there can be a functionally significant mutation that leaves the protein intact or other heritable reasons for this finding. Clinical Mr. Crump is a 77 [facility] Information y.o. with a positive 2 3:44 [...] SYNOPTIC Colon and Rectum Biomarker Reporting Template [facility] REPORTING Colon.Bmk - D 2 3:44 PM [...] MMR proteins: low probability of MSI-H Additional [facility] Information Interpreted at [facility], Central Laboratory - [address], [place] [address] 2 3:44 PM HEALTH CDT LABORATORY- CENTRAL [...] Organization Address City/State/ZIP Code Phon e Number [facility] [address] [place] [address] LABORATORY-CENTRAL 2000 LABORATORY from Last 3 Months Insurance Payer Benefit Plan / Subscriber ID Effective Dates Phone Addre ss Type [facility] [employer] MEDICARE [id number] 2018-Present [address] [place] [address] Care Teams Commodity Director Relationship Specialty Start Date End Date Miguel Dowling MD PCP - General Family Practice 01/21/[address] [place] [address]
--- NOTE | 2022-02-15 08:00 | CRLHL7_ITS ---
For Patients: As a result of the Century Cures Act, medical imaging exams and procedure reports are released immediately into your electronic medical record. You may view this report before your referring provider. If you have questions, please contact your health care provider. INDICATION: Malignant neoplasm of the rectum. TECHNIQUE: CT chest, abdomen and pelvis acquired with 98 cc Isovue 370 IV contrast. COMPARISON: CT chest, abdomen, and pelvis 03/24/2021. FINDINGS: CHEST Lungs and pleura: No suspicious pulmonary nodules. No pleural effusion or pleural thickening. Mild dependent ground-glass opacities in the posterior lingula and bilateral lower lobes most likely atelectasis. Heart and vasculature: Heart size is normal. Thoracic aorta and pulmonary artery are normal in caliber. Aortic atherosclerosis. No aneurysm. Coronary artery calcification. Lymph node/mediastinum: No mediastinal, hilar, or axillary adenopathy. Chest wall: Normal. Thyroid: 6 mm hypodense nodule in the left thyroid gland. Bones: No suspicious bone lesions. Degenerative disc and facet disease in the visualized lower cervical spine. ABDOMEN AND PELVIS: Liver: Diffuse liver fatty infiltration with focal fatty sparing around the gallbladder fossa. No liver lesions. Gallbladder and bile ducts: Unremarkable. Pancreas: Unremarkable. Spleen: Normal in caliber. No masses. Adrenal glands: Unremarkable. No masses. Kidneys: Bilateral renal cysts. One inferior posterior right kidney cyst is too small to definitively characterize. No solid enhancing mass. No stones or hydronephrosis. Multiple dependent stones in the bladder. GI tract: No discernable rectal mass on CT. No colonic wall thickening or pericolonic fat stranding. Redundant sigmoid colon. Colonic diverticulosis with no evidence of acute diverticulitis. Appendix is normal. No small bowel dilation. No free fluid or free air. Vasculature: Aortoiliac atherosclerosis. No aneurysm. Mesenteric arteries are patent. Lymph nodes: No lymphadenopathy. Omentum/peritoneum/retroperitoneum/abdominal wall: No masses or infiltration. No free air or significant free fluid. Pelvic organs: Prostate is enlarged. No pelvic lymphadenopathy. No pelvic free fluid. Bilateral fat containing inguinal hernias. Bones: No suspicious bone lesions. Degenerative changes in the bilateral hips, pubic symphysis, SI joints. Multilevel degenerative disc and facet disease in the lumbar spine. Retrolisthesis of L2 on L3 with posterior disc osteophyte complex causing at least moderate if not severe mass effect on the thecal sac. IMPRESSION: 1. No definite discernible rectal or colonic mass on CT. 2. No evidence of metastatic disease in the chest, abdomen, or pelvis. 3. Coronary and aortic atherosclerotic calcification. 4. Hepatic steatosis. 5. Multiple dependent bladder stones. 6. Colonic diverticulosis. 7. Prostate is enlarged. 8. Bilateral renal hypodensities the largest of which are consistent with cysts. Right posterior inferior kidney hypodense lesion is too small to definitively characterize. 9. Multilevel degenerative disc and facet disease in the lumbar spine. Retrolisthesis of L2 on L3 with posterior disc osteophyte complex causing at least moderate if not severe mass effect on the thecal sac. Please note that all CT scans at this facility use dose modulation, iterative reconstruction, and/or weight-based dosing when appropriate to reduce radiation dose to as low as reasonably achievable. Dictated by Shon Rinaldi MD @ 02/15/2022 10:10:56 AM (Electronically Signed)
== END 2022-02-15 07:38 | disposition home or self-care (01) ==
LOC: CT 07:39
PROVIDERS: PCP Family Medicine; Visit Provider Surgery
DX: C20 Malignant neoplasm of rectum (principal); E04.1 Nontoxic single thyroid nodule; K76.0 Fatty (change of) liver, not elsewhere classified; K57.30 Diverticulosis of large intestine without perforation or abscess without bleeding; N40.0 Benign prostatic hyperplasia without lower urinary tract symptoms; N28.1 Cyst of kidney, acquired; M51.36 Other intervertebral disc degeneration, lumbar region
CPT/HCPCS: 71260; 74177; Q9967

== ENCOUNTER 2022-02-22 13:23 | Outpatient (CLI) | payer OTHER, SELFPAY ==
--- OUTSIDE RECORDS SUMMARY | 2022-02-22 13:39 | XMS_ITS | Clinical Summary ---
:1945 [facility] Address [address] [place] [address] Care Team Providers Name Role Phone Kristine [...] for each transition of care or referral. [place] Allergies Active Allergy Reactions Severity Noted Date [...] RN 11/27/2015, 4:49 PM ; HTN (hypertension) ([facility]) Nurse managed Encounters Date Type Specialty [...] CDT Respiratory Rate 14 05/19/2016 9:41 AM DESIGN ENGINEER PRODUCTS Oxygen Saturation - - Inhaled Oxygen Concentration [...] Localized chroni c slight FIRST CDT periodontitis [id number] Routine 02/14/2022 11:20 AM Localized chron ic [...] Typ e / Group Dates [facility] COMM [id number] 2018-Pre PO BOX Co mmercial DENTAL PLAN SENIORS sent [phone] [place] [address] [facility] FREEDOM [id number] 2014-Pre [phone] edicare sent [phone] MEDICARE MEDICARE [id number] 2012-Pr [phone] Medica re MANAGED CARE esent [phone] [facility] HP PREVENTIVE [id number] 2020-Pre Preventive DENTAL PLAN SR PREV sent ADVANTAGE [facility] HP PREVENTIVE [id number] 2021-Pre Preventive DENTAL PLAN SR PREVENTIVE sent DENTAL [address] (Home) [phone] [place] GUTIERREZ (Work) [phone] Armen Crump Personal/Family Self [address] (Home) [place] [address] Armen Crump Personal/Family Self [address] (Home) [place] [address] Care Teams Applied Anthropologist Relationship Specialty Start Date End Date Kristine Brown MD PCP - General Family Practice 03/25/13 [address] [place] [address]
--- OUTSIDE RECORDS SUMMARY | 2022-02-22 13:39 | XMS_ITS | Encounter Summary ---
:1945 Author Organization [facility] Address [address] [place] [address] Care Team Providers Name Role Phone Kristine Brown MD Primary Care Provider Reason for Visit Reason Comments Insurance Concerns Encounter Details Date Type Department Care Team Description 09/03/2020 Telephone [facility] Richard Head, ALONSO Insurance Concerns Dentistry [address] [place] [address] [phone] [phone] (Wo rk) Social History Tobacco Use Types [...] on filedocumented in this encounter Care Teams Manager Of Pharmacy Relationship Specialty Start Date End Date Kristine Brown MD PCP - General Family Practice 03/25/[id number] [place] [address] documented as of this encounter
--- OUTSIDE RECORDS SUMMARY | 2022-02-22 13:39 | XMS_ITS | Encounter Summary ---
:1945 Author Organization [facility] Address [address] [place] [address] Care Team Providers Name Role Phone Kristine Brown MD Primary Care Provider Reason for Visit Reason Comments Revisit Encounter Details Date Type Department Care Team Description 07/26/2017 Office Visit [facility] [address] G out, unspecified Rheumatology Clinic cause, unspecified [address] chronicity, [place] [address] [place], [place] unspecified site [phone] (Primary Dx) Social History Tobacco Use [...] Britton MD - 07/26/2017 8:[address] [facility] Rheumatology Outpatient Consultation Report Date: 07/26/17 Reason [...] Problems Diagnosis Date Noted ??? HTN (hypertension) ([facility]) 04/09/2013 ??? History of basal [...] of bilateral DIPs, PIPs, MCP joints. Normal hand-learning center instructor without pain Knee - no joint effusion [...] - 07/26/2017 12:44 PM CDT Performed at [address] ??[address] Prateek Britton MD LAB_1 Performing Organization Address [facility] Phon e Number [facility] [phone] Creatinine / GFR (07/26/2017 9:04 AM CDT) Analysis Performed At [facility] Time Signature Creatinine 1.02 0.73 - [facility] 1.18 mg/dl LAB[facility]ATORIES GFR, Estimated >60 >60 [facility] ml/min/1.7 [facility]ATOR[facility] 3m2 GFR, Est., If >60 >60 [facility] Black ml/min/1.7 LABORATORIES 3m2 Specimen Anatomical Collection Method Collection Time Receive d Time (Source) Location / / Volume Laterality 07/26/2017 9:04 AM 8 9:05 CDT AM CDT Narrative [facility] - 07/26/2017 12:44 PM CDT Performed at [address] ??[id number] Prateek Britton MD LAB_1 Performing Organization Address [facility] Phon e Number [facility] [phone] ALT (SGPT) (07/26/2017 9:04 AM CDT) P athologist Signature ALT (SGPT) 22 0 - 55 U/L [facility] Specimen Anatomical Collection Method Collection Time Receive d Time (Source) Location / / Volume Laterality 07/26/2017 9:04 AM 8 9:05 CDT AM CDT Narrative [facility] - 07/26/2017 12:44 PM CDT Performed at [address] ??[address] Prateek Britton MD LAB_1 Performing Organization Address [facility] Phon e Number [facility] [phone] AST (07/26/2017 9:04 AM CDT) P athologist Signature AST (SGOT) 17 10 - 40 U/L [facility] Specimen Anatomical Collection Method Collection Time Receive d Time (Source) Location / / Volume Laterality 07/26/2017 9:04 AM 8 9:05 CDT AM CDT Narrative [facility] - 07/26/2017 12:44 PM CDT Performed at [facility], [address] [place] [address] ??[address] Prateek Britton MD LAB_1 Performing Organization Address City/State/ZIP Code Phon e Number [facility] [phone] (ABNORMAL) Complete Blood Count-W/Diff (07/26/2017 9:04 AM CDT) [facility] gist Method Time Signature WBC 4.4 4.0 [...] [facility] Lymph 24 % [facility] Ford 11 % [facility] Eos 5 % [facility] Baso 1 % [facility] Neutrophil 2.6 1.8 - 7.7 [facility] Absolute k/ul LAB[facility] Lymph Absolute 1.0 1.0 - 4.8 [facility] k/ul [facility] Ford Absolute 0.5 0.1 - 0.7 [facility] k/ul [...] 07/26/2017 1:43 PM C DT [facility], [address] [place] [address] ??[address] Prateek Britton MD LAB_1 Performing Organization Address City/State/ZIP Code Phon e Number [facility] [phone] documented in this encounter Visit Diagnoses Diagnosis Gout, unspecified cause, unspecified chr onicity, unspecified site - Primary documented in this encounter Care Teams Accounts Payable Payroll Coordinator Relationship Specialty Start Date End Date Kristine Brown MD PCP - General Family Practice 03/25/13 [address] [place] [address] documented as of this encounter
--- OUTSIDE RECORDS SUMMARY | 2022-02-22 13:39 | XMS_ITS | Encounter Summary ---
:1945 Author Organization [facility] Address [address] [place] [address] Care Team Providers Name Role Phone Kristine Brown MD Primary Care Provider Reason for Visit Reason Comments Restorative Services 9F,11F comp, 5mol amal Encounter Details Date Type Department Care Team Description 09/03/2020 Office Visit [place] [facility] Richard Head, DDS [address] [place], [place] [phone] Restorative Services Dentistry Yard[place], Exam (9F,11F comp, 5mol [address] [facility] amal) [place] [address] Social History Tobacco Use Types [...] was administered by Tushar Head DDS AMALGAM HINDUISM, #5: Prepared with incomplete removal of existing [...] because of the risk of fracture COMPOSITE HINDUISM, #9, #11: Prepared with complete caries removal Isolated area with high speed suction and a rubber dam. Retraction cord isolation also Bonding with Scotchbond Napoleon material Preparation filled with composite material : [...] Caries of cervical margin of tooth - [facility] Fracture of tooth enamel and dentin documented in this encounter Care Teams Kitchenhand Relationship Specialty Start Date End Date Kristine Brown MD PCP - General Family Practice 03/25/13 [address] [place] [address] documented as of this encounter
--- OUTSIDE RECORDS SUMMARY | 2022-02-22 13:39 | XMS_ITS | Encounter Summary ---
:1945 Author Organization [facility] Address [address] [place] [address] Care Team Providers Name Role Phone Kristine Brown MD Primary Care Provider Reason for Visit Reason Comments Appt. Needed Pt would like to speak with DDS about consult on tooth 12 13. Wasn't happy with last consult 03/30 . Encounter Details Date Type Department Care Team Description 05/11/2020 Telephone [place] [facility] [place], Exam Appt. N eeded (Pt would Dentistry like to speak with DDS [address] Arvind Jamal about consult on tooth 12 [place], [place] [address] 13. Wasn't happy with last [phone] consult 03/30. ) Social History Tobacco Use [...] on filedocumented in this encounter Care Teams Parking Enforcement Technician Relationship Specialty Start Date End Date Kristine Brown MD PCP - General Family Practice 03/25/13 [address] [facility] [address] documented as of this encounter
--- OUTSIDE RECORDS SUMMARY | 2022-02-22 13:39 | XMS_ITS | Encounter Summary ---
:1945 Author Organization [facility] Address [address] [place] [address] Care Team Providers Name Role Phone Kristine Brown MD Primary Care Provider Reason for Referral Dental (Routine) - Closed Specialty Diagnoses / Procedures Referred By Contact Refer red To Contact Diagnoses Dental caries into pulp Pulpal necrosis Tushar Head DDS [address] [place], [place] [address] Referral ID Status Reason Start Date Expiration Date Visits Requ ested Visits Authorized [id number] Closed 03/16/2020 06/15/2021 1 1 Scheduling Instructions Your provider has recommended an appoint ment for endodontic services within [facility]. You may c all one of the clinics below to schedule an appointment. [place] [phone] [place] [phone] STRY ANALYST Reason for Visit Reason Comments Endodontic Services endo #12 Encounter Details Date Type Department Care Team Description 03/16/2020 Office Visit [place] [facility] Richard Head DDS [address] [place], [place] [phone] Endodontic Services Dentistry [place], Exam (endo #12) [address] [place], [place] [phone] Social History Tobacco Use Types Packs/Day Years [...] of thetooth. ?? Crack or fracture of tooth/temple during treatment may require a new temple or possiblyresult in loss of the tooth [...] months or more. ?? Timely and definitive temple of the tooth is often required once [...] and unable to negotiate canals--calcified. Recommend see ring maker for completion Irrigation: Sodium hypochlorite 2.5-5.25% : [...] dam Canal Location: Facial, Lingual Used apex meteorology instructor, unable to get to apex, approx 4mm short in both canals Irrigation: Sodium hypochlorite 2.5-5.25% : Dried with paper points Access closed with glass ionomer over cotton Total radiographs required for treatment: 0 Patient presented with: No fracture noted Rec follow up with ring maker to complete POST-OP INSTRUCTIONS: Patient was advised of normal post-operative instructions and need to completeendo tx or risk pain/infection. Care was assisted by karoline Araya Planned Visit: op , endo visit, referral in place for Tushar Head DDS 03/16/2020, 10:35 AM --End of Note-- 7:16 AM STRY ANALYST documented in this encounter Plan of Treatment Scheduled Referrals Name Type Priority Associated Diagnoses Order S chedule Endodontics Consult Referral Routine Dental julisa s into pulp Ordered: 03/16/2020 Pulpal necrosis documented as of this encounter Procedures Procedure Name Priority Date/Time Associated Diagnosis Comme nts DIAGNOSTIC CASTS Routine 03/16/2020 7:10 AM INDUSTRY ANALYST Dental attriti on, excessive UNSPEC ENDO PROC BY REP Routine 03/16/2020 7:10 AM INDUSTRY ANALYST Dental caries extending into inner third of dentin Pulpal necrosis 12 SEDATIVE FILLING Routine 03/16/2020 7:10 AM INDUSTRY ANALYST Dental caries extending into inner third of dentin Dental caries into pulp documented in this encounter Visit Diagnoses Diagnosis Dental caries extending into inner third of dentin - Primary Dental caries into pulp Dental caries extending into pulp Dental attrition, excessive Excessive attrition of teeth, unspecifie d Pulpal necrosis Necrosis of dental pulp documented in this encounter Care Teams Medium Cycle Salesperson Relationship Specialty Start Date End Date Kristine Brown MD PCP - General Family Practice 03/25/13 [address] [place] [address] documented as of this encounter
--- OUTSIDE RECORDS SUMMARY | 2022-02-22 13:39 | XMS_ITS | Encounter Summary ---
:1945 Author Organization [facility] Address [address], [place] [address] Care Team Providers Name Role Phone Kristine Brown MD Primary Care Provider Reason for Visit Reason Comments Endodontic Services co #12, #13 Dental (Routine) - Closed Specialty Diagnoses / Procedures Referred By Contact Refer red To Contact Diagnoses Dental caries into pulp Pulpal necrosis Tushar Head DDS [address] [place], [place] [address] Referral ID Status Reason Start Date Expiration Date Visits Requ ested Visits Authorized [id number] Closed 03/16/2020 06/15/2021 1 1 Encounter Details Date Type Department Care Team Description 03/30/2020 Office Visit [place] [facility] [address], [place], [place] (co #12, #13) [place] [address] [phone] [place], [place] [address] Social History Tobacco Use Types [...] NEXT PLANNED VISIT: Treatment --End of Note-- COOKING OPERATOR documented in this encounter Plan of Treatment Not on filedocumented as of this encounter Procedures Procedure Name Priority Date/Time Associated Diagnosis Comme nts 12,13 LIMITED ORAL Routine 03/30/2020 9:00 AM Visit for dental EVALUATION HIDE COOKING OPERATOR examination documented in this encounter Visit Diagnoses Diagnosis Visit for dental examination - Primary Dental examination documented in this encounter Care Teams Senior Loss Control Specialist Relationship Specialty Start Date End Date Kristine Brown MD PCP - General Family Practice 03/25/13 [address] [place] [address] documented as of this encounter
--- OUTSIDE RECORDS SUMMARY | 2022-02-22 13:39 | XMS_ITS | Encounter Summary ---
:1945 Author Organization [facility] Address [address] [address] Care Team Providers Name Role Phone Kristine Brown MD Primary Care Provider Reason for Referral Dental (Routine) - Closed Specialty Diagnoses / Procedures Referred By Contact Refer red To Contact Diagnoses Fracture of crown and root of tooth Extensive root caries lesions involving dentin [facility] [address] [place], [place] [address] Referral ID Status Reason Start Date Expiration Date Visits Requ ested Visits Authorized [id number] Closed 02/18/2020 05/19/2021 1 1 Scheduling Instructions Your provider has recommended an appoint ment with an oral surgeon within [facility]. You may c all one of the clinics below to schedule an appointment. [place] - [phone] [facility] [phone] [place] [phone] Reason for Visit Reason Comments Dental Hygiene upper rt tooth occ gives pro blems Encounter Details Date Type Department Care Team Description 02/17/2020 Office Visit [place] [facility] [address] [place] [address] Dental Hygiene (upper Dentistry Yard[place], Exam [place] [address] [facility] problems) [place] [address] Social History Tobacco Use Types Packs/Day Years [...] collaborating agreement with Tushar Head DDS (License #:[id number]) PRESENTATION: Oral Hygiene: Good Plaque: Localized, light supra-gingival and interproximal Calculus: Localized, light supra-gingival , interproximal and mandibular anterior Stain: None Bleeding: Localized light Gingival tissue: Normal Mucogingival concerns: Absent ACTIVITIES: Hand scale, Flossed all contacts and No st [facility] PATIENT EDUCATION: [place], Oral care adjuncts, Fluoride [...] Localized inflammati on CDT of gingival margin [id number] Routine 02/17/2020 3:50 PM Localized inflam mation [...] dentin documented in this encounter Care Teams Poker Room Manager Relationship Specialty Start Date End Date Kristine Brown MD PCP - General Family Practice 03/25/13 [address] [place] [address] documented as of this encounter
--- OUTSIDE RECORDS SUMMARY | 2022-02-22 13:39 | XMS_ITS | Encounter Summary ---
:1945 Author Organization [employer] Address [address] [place] [address] Care Team Providers Name Role Phone Kristine Brown MD Primary Care Provider Reason for Visit Reason Comments Other crown came off Encounter Details Date Type Department Care Team Description 06/11/2018 Telephone [place] Karyn Foster, Other (crown came off) Dentistry [facility] [address] [facility] [address] [place] [address] [place], [place] [phone] (Wo rk) Social History Tobacco Use Types Packs/Day Years Used Date Smoking Tobacco: Former Cigarettes 1 9 Quit : 04/24/1971 Smokeless Tobacco: Never Alcohol Use Standard Drinks/Week Comments Yes 4.2 (1 standard drink = 0.6 oz pure alco hol) occ Sex Assigned at Date Recorded Not on file documented as of this encounter Nursing Notes Juany Sheppadr I - 06/11/2018 8:16 AM CST EMERGENCY/PROBLEM [...] [] Upper Right [] Lower Right Comments: [place] came off 3. What kind of discomfort [...] Yes Comments: Will bring the crown with D RECORDING TECHNICIAN documented in this encounter Plan of Treatment Not on filedocumented as of this encounter Visit Diagnoses Not on filedocumented in this encounter Care Teams Labor Union Business Representative Relationship Specialty Start Date End Date Kristine Brown MD PCP - General Family Practice 03/25/13 [address] [place] [address] documented as of this encounter
--- OUTSIDE RECORDS SUMMARY | 2022-02-22 13:39 | XMS_ITS | Encounter Summary ---
:1945 Author Organization [facility] Address [address] [place] [address] Care Team Providers Name Role Phone Phillip Lopez MD Primary Care Provider Reason for Visit Reason Comments Refill lisinopril (ZESTRIL) 40 MG t ablet [Pharmacy Med Name: LISINOPRIL 40MG TABS] Encounter Details Date Type Department Care Team Description 08/17/2017 Refill [facility] Phillip Lopez MD Refill (lisinopril Practice [address] (ZESTRIL) 40 MG tablet [address] [place], [place] [Pharmacy Med Name: [place], [place] [address] LISINOPRIL 40MG TABS]) [phone] (Wo rk) Social History Tobacco Use Types [...] K: 4.3 mEq/L on 07/14/2016 Powered by [employer], Reference: [id number], 08/17/2017 4:01:06 PM CDT, Pool: ABARCA RN ([id number]) Interface, Out [employer] Query - 08/17/2017 4:01 PM CDT The [...] on filedocumented in this encounter Care Teams Leasing Agent Relationship Specialty Start Date End Date Phillip Lopez MD PCP - General Family Practice 03/25/13 [address] [place] [address] documented as of this encounter
--- OUTSIDE RECORDS SUMMARY | 2022-02-22 13:39 | XMS_ITS | Encounter Summary ---
:1945 Author Organization [employer] Address [address] [place] [address] Care Team Providers Name Role Phone Kristine Brown MD Primary Care Provider Reason for Visit Reason Comments Dental Services returning call Encounter Details Date Type Department Care Team Description 05/11/2020 Telephone [place] [facility] Tushar Head Den tal Services Dentistry DDS (returning call) [address] [facility] [address] [place], [place] [address] [place], [place] [phone] (Wo rk) Social History Tobacco Use Types [...] AM CST Called [place], he saw an chemical supervisor in [place], wanted to make sure it is ok [...] priority. Tushar Head DDS 05/11/2020, 11:18 AM DECATOR OPERATOR documented in this encounter Plan of Treatment Scheduled Orders Name Type Priority Associated Diagnoses Order S chedule 12 12 CROWN SEAT Dental Procedures Routine 1 Occu rrences starting 2020 13 13 CROWN SEAT Dental Procedures Routine 1 Occu rrences starting 2020 documented as of this encounter Visit Diagnoses Not on filedocumented in this encounter Care Teams Director Informatics Relationship Specialty Start Date End Date Kristine Brown MD PCP - General Family Practice 03/25/13 [address] [place] [address] documented as of this encounter
--- OUTSIDE RECORDS SUMMARY | 2022-02-22 13:39 | XMS_ITS | Encounter Summary ---
:1945 Author Organization [employer] Address [address] [place] [address] Care Team Providers Name Role Phone Kristine Brown MD Primary Care Provider Encounter Details Date Type Department Care Team Description 08/17/2017 Refill Order [facility] Kristine Brown MD Practice [address] [place] [address] [place] [address] [phone] Social History Tobacco Use Types Packs/Day Years [...] You can schedule your appointment online at extraTKT or by calling the appointment center at the phone number listed above. Thank you for choosing [employer]. Allison Solis RN [facility] Nurses Powered by [employer], Reference: [id number], 08/17/2017 4:01:06 PM CDT, Pool: ABARCA RN ([id number]) documented in this encounter Plan of Treatment Not on filedocumented as of this encounter Visit Diagnoses Diagnosis Encounter for long-term (current) use of medications - Primary Encounter for long-term (current) use of other medications documented in this encounter Care Teams Educational Adviser Relationship Specialty Start Date End Date Kristine Brown MD PCP - General Family Practice 03/25/13 [address] [place] [address] documented as of this encounter
--- OUTSIDE RECORDS SUMMARY | 2022-02-22 13:39 | XMS_ITS | Encounter Summary ---
:1945 Author Organization [facility] Address [address] [place] [address] Care Team Providers Name Role Phone Kristine Brown MD Primary Care Provider Encounter Details Date Type Department Care Team Description 07/26/2017 Lab Visit [facility] [address] [facility]. [place], [place] [id number] Social History Tobacco Use Types Packs/Day Years [...] on filedocumented in this encounter Care Teams Instrument Maker And Repairer Relationship Specialty Start Date End Date Kristine Brown MD PCP - General Family Practice 03/25/13 [address] [place] [address] documented as of this encounter
--- OUTSIDE RECORDS SUMMARY | 2022-02-22 13:39 | XMS_ITS | Encounter Summary ---
:1945 Author Organization [employer] Address [address] [place] [address] Care Team Providers Name Role Phone Kristine Brown MD Primary Care Provider Reason for Visit Reason Comments Problem Focused Exam crown came off Encounter Details Date Type Department Care Team Description 02/11/2020 Office Visit [place] [facility] Tushar Head Pro blem Focused Exam Dentistry DDS (crown came off) [address] [facility] [address] [place] [address] [phone] Social History Tobacco Use Types Packs/Day Years [...] of tissue on M margin. PA wnl. [place] seats into position, but blanches tissue mesial. RADIOGRAPHIC INTERPRETATION: #19 Normal DIAGNOSIS: Loose Dental [place] (finding) (primary encounter diagnosis) PROGNOSIS: #19 Favorable Plan Treatment Discussion I discussed the Dental findings, Prognosis, Treatment options, Risks and complications associated with procedure and Billing/Treatment estimate with patient. CONSENT: All questions answered and the patient gave informed consent to proceed with dental treatment/services. Completed Procedures CROWN AND BRIDGE RE-CEMENT - #19: [place] recementation with resin-modified glass ionomer.Relyx luting plus Apparent reason for failure: Cement failure and Buildup failure Radiographs : N/A Verified occlusion, contacts, margins and cement removal Post-Op Instructions: Patient was advised of normal post-operative instructions Care was assisted by CHRIS Shaffer 02/11/2020, 11:44 AM Next Planned Visit: SHIRT MARKER exam/prophy Tushar Head DDS 02/11/2020, 2:12 PM --End of Note-- 11:43 AM documented in this encounter Plan of Treatment Not on filedocumented as of this encounter Procedures Procedure Name Priority Date/Time Associated Diagnosis Comme nts FILM-PERIAPICAL FIRST Routine 02/11/2020 12:00 PM Loose Dental [place] CDT (finding) 19 CROWN RECEMENT Routine 02/11/2020 12:00 PM Loose Dental Rn Case Management wn CDT (finding) LIMITED ORAL EVALUATION Routine 02/11/2020 12:00 PM Loose Sarpy al [place] CDT (finding) 2 MO EXISTING AMALGAM Routine 01/22/2008 11:00 PM FILLING CDT documented in this encounter Visit Diagnoses Diagnosis Loose Dental [place] (finding) - Primary documented in this encounter Care Teams Sap Bw Architect Relationship Specialty Start Date End Date Kristine Brown MD PCP - General Family Practice 03/25/13 [address] [place] [address] documented as of this encounter
--- OUTSIDE RECORDS SUMMARY | 2022-02-22 13:39 | XMS_ITS | Encounter Summary ---
:1945 Author Organization [employer] Address [address] [place] [address] Care Team Providers Name Role Phone Kristine Brown MD Primary Care Provider Reason for Visit Reason Comments EMPF lost gold crown Encounter Details Date Type Department Care Team Description 02/10/2020 Telephone [place] [facility] YaTushar rachel EMP F (lost gold crown) Dentistry DDS [address] [facility] [address] [place], [place] [address] [place], [place] [phone] (Wo rk) Social History Tobacco Use Types [...] on filedocumented in this encounter Care Teams Restorative Art Embalmer Relationship Specialty Start Date End Date Kristine Brown MD PCP - General Family Practice 03/25/13 [address] [place] [address] documented as of this encounter
--- OUTSIDE RECORDS SUMMARY | 2022-02-22 13:39 | XMS_ITS | Encounter Summary ---
:1945 Author Organization [facility] Address [address] [place] [address] Care Team Providers Name Role Phone Kristine Brown MD Primary Care Provider Reason for Referral Dental (Routine) - Closed Specialty Diagnoses / Procedures Referred By Contact Refer red To Contact Diagnoses Chronic apical abscess Tushar Head DDS [address] [place], [place] [address] Referral ID Status Reason Start Date Expiration Date Visits Requ ested Visits Authorized [id number] Closed 04/09/2020 07/09/2021 1 1 Scheduling Instructions Your provider has recommended an appoint ment for endodontic services within [facility]. You may c all one of the clinics below to schedule an appointment. [place] [phone] [place] [phone] ARIBA CONSULTANT Reason for Visit Reason Comments REFERRAL REQUEST Encounter Details Date Type Department Care Team Description 04/08/2020 Telephone [facility] Richard Head DDS REFERRAL REQUEST Dentistry [address] [place] [address] [place] [address] [place] [address] [phone] Social History Tobacco Use Types Packs/Day Years [...] He will call them to get scheduled. ARIBA CONSULTANT Tushar Head DDS - 04/09/2020 7:08 AM CST Placed new referral for [facility] for #12,13 per phone message. His request also mentioned [facility] which is Oral surgery, not endo. If he wants teeth removed I will put in OS referral. He has appt with Dr. Cardoza for extraction of #3 on 05/19/20 Tushar Head DDS 04/09/2020, 7:10 AM ARIBA CONSULTANT Bisi Thorpe - 04/08/2020 10:42 AM CST Miscellaneous Questions & FYI's [ Appt Center/Workers Compensation Legal Secretary: If this call is after 3 p.m., communicate to patient: If we are not able to get back to you by the end of the day and your symptoms worsen please contact the Careline at [phone] OR at .] Is this a symptom? No What is your question or concern? Patient wants a new referral for an medicine man placed in his chart. He would like to go to [facility] in [place]. Patient was seen by Harris Reardon and states he wasn't comfortable with them. Please advise Have you recently been seen for this? Yes: 03/16/20 Is it okay to leave a detailed message on your voicemail? Yes Bisi Thorpe ARIBA CONSULTANT documented in this encounter Plan of Treatment Scheduled Referrals Name Type Priority Associated Diagnoses Order S chedule Endodontics Consult Referral Routine Chronic apical absces s Ordered: 04/09/2020 documented as of this encounter Visit Diagnoses Diagnosis Chronic apical abscess - Primary documented in this encounter Care Teams All Source Collection Manager Relationship Specialty Start Date End Date Kristine Brown MD PCP - General Family Practice 03/25/13 [address] [place] [address] documented as of this encounter
--- OUTSIDE RECORDS SUMMARY | 2022-02-22 13:39 | XMS_ITS | Encounter Summary ---
:1945 Author Organization [employer] Address [address] [place] [address] Care Team Providers Name Role Phone Kristine Brown MD Primary Care Provider Reason for Visit Reason Comments Problem Focused Exam Fractured tooth or filling Encounter Details Date Type Department Care Team Description 01/04/2021 Office Visit [place] [facility] Brenna Reyes P roblem Focused Exam Dentistry [place] ([place] [address] [place] [address] filling ) [place] [phone] Social History Tobacco Use Types Packs/Day Years [...] April of this year Diagnosis: Defective dental taoist (primary encounter diagnosis) Prognosis: #12, #13 Favorable [...] None used, procedure was minimally invasive. SEDATIVE GNOSTICISM, #12, #13: Prepared with complete caries removal [...] 01/04/2021 12:00 PM Defective de ntal CDT taoist 13 MODBL SEDATIVE Routine 01/04/2021 12:00 PM Defective dental FILLING CDT taoist 12 DOBL SEDATIVE Routine 01/04/2021 12:00 PM Defective dental FILLING CDT taoist LIMITED ORAL EVALUATION Routine 01/04/2021 12:00 PM Defective dental CDT taoist 13 EXISTING PFM CROWN Routine 01/22/2008 11:00 PM CDT 19 EXISTING FULL GOLD Routine 01/22/2008 11:00 PM CROWN CDT 12 DO EXISTING AMALGAM Routine 01/22/2008 11:00 PM FILLING CDT documented in this encounter Visit Diagnoses Diagnosis Defective dental taoist - Primary Unspecified unsatisfactory taoist o f tooth documented in this encounter Care Teams Owner Operator Relationship Specialty Start Date End Date Kristine Brown MD PCP - General Family Practice 03/25/13 [address] [place] [address] documented as of this encounter
--- OUTSIDE RECORDS SUMMARY | 2022-02-22 13:39 | XMS_ITS | Encounter Summary ---
:1945 Author Organization [facility] Address [address] [place] [address] Care Team Providers Name Role Phone Kristine Brown MD Primary Care Provider Reason for Visit Reason Comments Dental Hygiene Been awhile, feels like his mouth is falling apart. No pain Encounter Details Date Type Department Care Team Description 02/14/2022 Office Visit [facility] Nory Castrejon [facility] Hygiene (Been Dentistry M, [facility] awhile, feels like his [address] [place] [address] mouth is falling [place], [place] apart. No pain) [phone] Social History Tobacco Use Types Packs/Day Years [...] collaborating agreement with Tushar Head DDS (License #:[id number]) PROCEDURAL PAUSE: Patient identity verified: Yes Treatment [...] Routine 1 Occurre nces EVALUATION starting 2021 [id number] Dental Procedures Routine 1 Oc currences starting 2021 TOPICAL FLUORIDE Dental Procedures Routine 1 Occu rrences VARNISH starting 2021 documented as of this encounter Procedures Procedure Name Priority Date/Time Associated Diagnosis Comme nts [id number] Routine 02/14/2022 11:20 AM Localized chron ic [...] Primary documented in this encounter Care Teams Debridging Machine Operator Relationship Specialty Start Date End Date Kristine Brown MD PCP - General Family Practice 03/25/13 [address] [place] [address] documented as of this encounter
--- OUTSIDE RECORDS SUMMARY | 2022-02-22 13:39 | XMS_ITS | Encounter Summary ---
:1945 Author Organization [facility] Address [address], [place] [address] Care Team Providers Name Role Phone Kristine Brown MD Primary Care Provider Reason for Referral Dental (Routine) - Closed Specialty Diagnoses / Procedures Referred By Contact Refer red To Contact Diagnoses Loose Dental [place] (finding) Dental caries extending into inner third of dentin Fractured dental jew with loss of material Tushar Head DDS [address] [place], [place] [address] Referral ID Status Reason Start Date Expiration Date Visits Requ ested Visits Authorized [id number] Closed 06/11/2018 09/10/2019 1 1 Scheduling Instructions Your provider has recommended an appoint ment with a aircraft structural repairer within [facility] Dental Clinics. You may c all one of the clinics below to schedule an appointment. If you prefer, a grocery store bagger will contact you within the next 3 business days to assist you in setting up this ap pointment. [place] - [phone] [facility] [phone] [facility] [phone] [place] - [phone] YST Reason for Visit Reason Comments Problem Focused Exam UL crown off Encounter Details Date Type Department Care Team Description 06/11/2018 Office Visit [place] [facility] Tushar Head, Pro blem Focused Exam Dentistry DDReed (UL crown off) [address] [facility] [address] [place] [address] [phone] Social History Tobacco Use Types Packs/Day Years [...] Problem Focused Exam (UL crown off) S: Finderne on the UL side came out yesterday. [...] of thetooth. ?? crack or fracture of tooth/jew during treatment may require a new restoation [...] months or more. ?? timely and definitive jew of the tooth is often required once [...] NEXT PLANNED VISIT: perio consult. Also recommended TOOL MAINTENANCE TECHNICIAN exam and cleaning, advised can sometimes catch problems before they become this aggressive. Tushar Head DDS 06/11/2018, 2:05 PM Completed dental procedures in this visit ??? LIMITED ORAL EVALUATION ??? FILM-PERIAPICAL FIRST ??? [id number] --End of Note-- YST documented in this encounter Plan of Treatment Scheduled Orders Name Type Priority Associated Order Schedule Diagnoses 13 13 PREFABRICATED Dental Procedures Routine 1 O ccurrences POST & CORE starting 2020 Scheduled Referrals Name Type Priority Associated Diagnoses Order S chedule Periodontics Consult Referral Routine Loose Dental Finder[place] O rdered: 06/11/2018 (finding) Dental caries extending into inner third of dentin Fractured dental jew with loss of material documented as of this encounter Procedures Procedure Name Priority Date/Time Associated Diagnosis Comme nts FILM-PERIAPICAL FIRST Routine 06/11/2018 12:00 PM Loose Dental Finder[place] ANALYST (finding) Dental caries extending into inner third of dentin Fractured dental jew with loss of material documented in this encounter Visit Diagnoses Diagnosis Loose Dental [place] (finding) - Primary Dental caries extending into inner third of dentin Fractured dental jew with loss o f material Fractured dental restorative material wi th loss of material documented in this encounter Care Teams Coat Ironer Hand Relationship Specialty Start Date End Date Kristine Brown MD PCP - General Family Practice 03/25/13 [address] [place] [address] documented as of this encounter
--- OUTSIDE RECORDS SUMMARY | 2022-02-22 13:39 | XMS_ITS | Encounter Summary ---
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
--- OUTSIDE RECORDS SUMMARY | 2022-02-22 13:39 | XMS_ITS | Encounter Summary ---
:1945 Author Organization [employer] Address [address] [place] [address] Care Team Providers Name Role Phone Kristine Brown MD Primary Care Provider Reason for Visit Reason Comments Oral Surgical Services consult / la 3 Dental (Routine) - Closed Specialty Diagnoses / Procedures Referred By Contact Refer red To Contact Diagnoses Fracture of crown and root of tooth Extensive root caries lesions involving dentin [facility] [address] [place] [address] Referral ID Status Reason Start Date Expiration Date Visits Requ ested Visits Authorized [id number] Closed 02/18/2020 05/19/2021 1 1 Encounter Details Date Type Department Care Team Description 04/07/2020 Office Visit Tatiana Gutierrez Surgical Surgery M, DDS Services (consult / [address] [place] [address] [place] [address] [phone] Social History Tobacco Use Types Packs/Day Years [...] - - Pulse 76 04/07/2020 10:48 AM DECORATOR INSPECTOR Temperature - - Respiratory Rate - - [...] #3 Tatiana Cardoza DDS 04/07/2020, 3:12 PM RATOR INSPECTOR documented in this encounter Plan of Treatment Not on filedocumented as of this encounter Procedures Procedure Name Priority Date/Time Associated Diagnosis Comme nts LIMITED ORAL EVALUATION Routine 04/07/2020 11:00 AM Dental car ies into DECORATOR INSPECTOR pulp documented in this encounter Visit Diagnoses Diagnosis Dental caries into pulp - Primary Dental caries extending into pulp documented in this encounter Care Teams Plant Equipment Engineer Relationship Specialty Start Date End Date Kristine Brown MD PCP - General Family Practice 03/25/13 [address] [place] [address] documented as of this encounter
--- OUTSIDE RECORDS SUMMARY | 2022-02-22 13:40 | XMS_ITS | Encounter Summary ---
:1945 Author Organization [facility] CorpM[facility] Service UnitCrowdF[facility] Address [address] [place] [address] Care Team Providers Name Role Phone Kristine Brown MD Primary Care Provider Encounter Details Date Type Department Care Team Description 08/12/2016 Lab Visit [place] [facility] Gout, unspecified cause, [address] [facility] unspecified chronicity, [place], [place] [address] unspecified site [phone] Social History Tobacco Use Types Packs/Day Years [...] 08/12/2016 12:22 PM CDT Performed at [facility], [address] [place] [address] ??[id number] Prateek Britton MD LAB_1 Performing Organization Address [facility] Phon e Number [facility] [phone] (ABNORMAL) Creatinine / GFR (08/12/2016 7:53 AM [...] - 08/12/2016 12:22 PM CDT Performed at [facility], [address] [place] [address] ??[phone] Prateek Britton MD LAB_1 Performing Organization Address City/State/ZIP Code Phon e Number [facility] [phone] ALT (SGPT) (08/12/2016 7:53 AM CDT) P athologist Signature ALT (SGPT) 31 0 - 55 U/L [facility] Specimen Anatomical Collection Method Collection Time Receive d Time (Source) Location / / Volume Laterality 08/12/2016 7:53 AM 7 7:54 CDT AM CDT Narrative [facility] - 08/12/2016 12:22 PM CDT Performed at [facility], [address] [place] [address] ??[phone] Prateek Britton MD LAB_1 Performing Organization Address City/[facility]/ZIP Code Phon e Number [facility] [phone] AST (08/12/2016 7:53 AM CDT) athologist Signature AST (SGOT) 23 10 - 40 U/L [facility] Specimen Anatomical Collection Method Collection Time Receive d Time (Source) Location / / Volume Laterality 08/12/2016 7:53 AM 7 7:54 CDT AM CDT Narrative [facility] - 08/12/2016 12:22 PM CDT Performed at [facility], [address] [place] [address] ??[phone] Prateek Britton MD LAB_1 Performing Organization Address City/[facility]/ZIP Code Phon e Number [facility] [phone] (ABNORMAL) Complete Blood Count-W/Diff (08/12/2016 7:53 AM CDT) [facility] gist Method Time Signature WBC 3.0 [...] [facility] Lymph 26 % [facility] [place] 19 % [facility] Eos 6 % [facility] Baso 0 % [facility] Neutrophil 1.4 (L) 1.8 - 7.7 [facility] k/ul [facility] Lymph Absolute 0.8 (L) 1.0 - 4.8 [facility] k/ul [facility] [place] Absolute 0.6 0.1 - 0.7 [facility] k/ul [...] 1:36 PM C DT Performed at [facility], [address] [place] [address] ??[id number] Prateek Britton MD LAB_1 Performing Organization Address City/State/ZIP Code Phon e Number [facility] [phone] documented in this encounter Visit Diagnoses Diagnosis Gout, unspecified cause, unspecified chr onicity, unspecified site documented in this encounter Care Teams Nursing Scheduler Relationship Specialty Start Date End Date Kristine Brown MD PCP - General Family Practice 03/25/13 [address] [place], [place] [id number] documented as of this encounter
--- OUTSIDE RECORDS SUMMARY | 2022-02-22 13:40 | XMS_ITS | Encounter Summary ---
:1945 Author Organization [facility] Software[facility] ServicesCaterCow Address [address] [place] [address] Care Team Providers Name Role Phone Kristine Brown MD Primary Care Provider Reason for Visit Reason Comments Medication Request colchicine 0.6mg tablet (ple ase resend for capsule form Encounter Details Date Type Department Care Team Description 08/01/2016 Telephone [facility] 401 Emma Britton MD Medication Request Rheumatology Clinic [address] (colchicine 0.6mg [address] [place], [place] tablet ([place] [address] for capsule form ) [phone] Social History Tobacco Use Types Packs/Day Years [...] Primary documented in this encounter Care Teams Catering And Events Manager Relationship Specialty Start Date End Date Kristine Brown MD PCP - General Family Practice 03/25/13 [address] [place] [address] documented as of this encounter
--- OUTSIDE RECORDS SUMMARY | 2022-02-22 13:40 | XMS_ITS | Encounter Summary ---
:1945 Author Organization [employer] Address [address], [place] [address] Care Team Providers Name Role Phone Kristine Brown MD Primary Care Provider Encounter Details Date Type Department Care Team Description 07/14/2016 Lab Visit [facility] Encounter for long-term (cur rent) use of medications; [address] [facility] Arthritis [place], [place] [address] Social History Tobacco Use [...] Component Value Ref Test Analysis Performed At [facility] gist Range Method Time Signature Lyme [...] - 07/15/2016 10:59 AM CDT Performed at [facility], [address] [place] [address] Thaddeus Rodriguez MD LAB_1 Performing Organization Address City/State/ZIP Code Phon e Number [facility] [phone] Rheumatoid Factor, Quant (07/14/2016 2:41 PM CDT) athologist Signature Quant. Rheum. <15 0 - 30 [facility] Factor IU/ml [facility] Specimen Anatomical Collection Method Collection Time Receive d Time (Source) Location / / Volume Laterality 07/14/2016 2:41 PM 7 2:44 CDT PM CDT Narrative [facility] - 07/14/2016 6:55 PM C DT Performed at [facility], [address] [place] [address] ??[phone] Thaddeus Rodriguez MD LAB_1 Performing Organization Address City/[facility]/ZIP Code Phon e Number [facility] [phone] ARNIE Screen (07/14/2016 2:41 PM CDT) P athologist Signature ARNIE Screen Negative NEG [facility] Specimen Anatomical Collection Method Collection Time Receive d Time (Source) Location / / Volume Laterality 07/14/2016 2:41 PM 7 2:44 CDT PM CDT Narrative [facility] - 07/15/2016 1:24 PM C DT Performed at [facility], [address] [place] [address] ??[phone] Thaddeus Rodriguez MD LAB_1 Performing Organization Address City/[facility]/ZIP Code Phon e Number [facility] [phone] (ABNORMAL) C-Reactive Protein (07/14/2016 2:41 PM CDT) Patholo gist Method Time Signature C-Reactive 4.1 (H) 0.0 - 0.7 [facility] Protein mg/dL [facility] Comment: Note: results are expressed in mg/dL. Specimen Anatomical Collection Method Collection Time Receive d Time (Source) Location / / Volume Laterality 07/14/2016 2:41 PM 7 2:44 CDT PM CDT Narrative [facility] - 07/14/2016 6:58 PM C DT Performed at [facility], [address] [place] [address] ??[phone] Thaddeus Rodriguez MD LAB_1 Performing Organization Address City/[facility]/ZIP Code Phon e Number [facility] [phone] Basic Metabolic Panel (07/14/2016 2:41 PM CDT) [...] 07/14/2016 6:58 PM C DT Performed at [facility], [address] [place] [address] ??[address] Thaddeus Rodriguez MD LAB_1 Performing Organization Address City/[facility] Code Phon e Number [facility] [phone] ESR (07/14/2016 2:41 PM CDT) athologist Signature ESR 2 0 - 15 [facility] mm/hr Specimen Anatomical Collection Method Collection Time Receive d Time (Source) Location / / Volume Laterality 07/14/2016 2:41 PM 7 2:44 CDT PM CDT Narrative [facility] - 07/14/2016 9:09 PM C DT Performed at [facility], [address] [place] [address] ??[phone] Thaddeus Rodriguez MD LAB_1 Performing Organization Address City/[facility]/ZIP Code Phon e Number [facility] [phone] (ABNORMAL) Uric Acid (07/14/2016 2:41 PM CDT) P athologist Signature Uric Acid 7.5 (H) 3.5 - 7.2 [facility] mg/dl Specimen Anatomical Collection Method Collection Time Receive d Time (Source) Location / / Volume Laterality 07/14/2016 2:41 PM 7 2:44 CDT PM CDT Narrative [facility] - 07/14/2016 6:58 PM C DT Performed at [facility], [address] [place] [address] ??[phone] Thaddeus Rodriguez MD LAB_1 Performing Organization Address City/[facility] Code Phon e Number [facility] [phone] documented in this encounter Visit Diagnoses Diagnosis Encounter for long-term (current) use of medications Encounter for long-term (current) use of other medications Arthritis Arthropathy, unspecified, site unspecifi ed documented in this encounter Care Teams Salesperson Jewelry Relationship Specialty Start Date End Date Kristine Brown MD PCP - General Family Practice 03/25/13 [address] [place] [address] documented as of this encounter
--- OUTSIDE RECORDS SUMMARY | 2022-02-22 13:40 | XMS_ITS | Encounter Summary ---
:1945 Author Organization [facility] Address [address] [place] [address] Care Team Providers Name Role Phone Kristine Brown MD Primary Care Provider Reason for Visit Reason Onset Date Comments Refill 04/20/2016 Encounter Details Date Type Department Care Team Description 04/20/2016 Refill [facility] Kristine Brown MD Refill [address] [facility] [address] [place], [place] [address] [place] [address] [phone] (Wo rk) Social History Tobacco Use Types [...] on filedocumented in this encounter Care Teams Computer Animator Relationship Specialty Start Date End Date Kristine Brown MD PCP - General Family Practice 03/25/13 [address] [place], [place] [phone] documented as of this encounter
--- OUTSIDE RECORDS SUMMARY | 2022-02-22 13:40 | XMS_ITS | Encounter Summary ---
:1945 Author Organization [facility] Center[facility] Address [address], [place] [address] Care Team Providers Name Role Phone Kristine Brown MD Primary Care Provider Encounter Details Date Type Department Care Team Description 10/26/2016 Lab Visit [facility] Gout, un specified cause, Laboratory unspecified chronicity, [address] unspecified site [place], [place] [phone] Social History Tobacco Use Types Packs/Day Years [...] - 10/26/2016 12:10 PM CDT Performed at [address] ??[id number] Prateek Britton MD LAB_1 Performing Organization Address [facility] Phon e Number [facility] [phone] Creatinine / GFR (10/26/2016 9:01 AM CDT) [...] - 10/26/2016 12:10 PM CDT Performed at [facility], [address] [place] [address] ??[phone] Prateek Britton MD LAB_1 Performing Organization Address [facility] Phon e Number [facility] [phone] ALT (SGPT) (10/26/2016 9:01 AM CDT) athologist Signature ALT (SGPT) 23 0 - 55 U/L [facility] Specimen Anatomical Collection Method Collection Time Receive d Time (Source) Location / / Volume Laterality 10/26/2016 9:01 AM 7 9:03 CDT AM CDT Narrative [facility] - 10/26/2016 12:10 PM CDT Performed at [facility], [address] [place] [address] ??[phone] Prateek Britton MD LAB_1 Performing Organization Address [facility] Phon e Number [facility] [phone] AST (10/26/2016 9:01 AM CDT) P athologist Signature AST (SGOT) 17 10 - 40 U/L [facility] Specimen Anatomical Collection Method Collection Time Receive d Time (Source) Location / / Volume Laterality 10/26/2016 9:01 AM 7 9:03 CDT AM CDT Narrative [facility] - 10/26/2016 12:10 PM CDT Performed at [facility], [address] [place] [address] ??[phone] Prateek Britton MD LAB_1 Performing Organization Address City/[facility] Phon e Number [facility] [phone] (ABNORMAL) Complete Blood Count-W/Diff (10/26/2016 9:01 AM [...] [facility] Lymph 13 % [facility] [place] 9 % [facility] Eos 2 % [facility] Baso 0 % [facility] Neutrophil 4.7 1.8 - 7.7 [facility] k/ul [facility] Lymph Absolute 0.8 (L) 1.0 - 4.8 [facility] k/ul [facility] [place] Absolute 0.6 0.1 - 0.7 [facility] k/ul [...] PM C DT Performed at [facility], [address] [place] [address] ??[phone] Prateek Britton MD LAB_1 Performing Organization Address City/State/ZIP Code Phon e Number [facility] [phone] documented in this encounter Visit Diagnoses Diagnosis Gout, unspecified cause, unspecified chr onicity, unspecified site documented in this encounter Care Teams Card Lacer Jacquard Relationship Specialty Start Date End Date Kristine Brown MD PCP - General Family Practice 03/25/13 [address] [place], [place] [phone] documented as of this encounter
--- OUTSIDE RECORDS SUMMARY | 2022-02-22 13:40 | XMS_ITS | Encounter Summary ---
:1945 Author Organization [employer] Address [address] [place] [address] Care Team Providers Name Role Phone Kristine Brown MD Primary Care Provider Reason for Visit Reason Comments Urgent Appt Request Encounter Details Date Type Department Care Team Description 07/14/2016 Telephone [facility]ty Center 401 Unassigned, Urge nt Appt Request Rheumatology Clinic Provider 401 [facility]. [address] [place] [address] [place], [place] [phone] [address] Social History Tobacco Use Types Packs/Day Years [...] list. Alicia Leahy MD 07/14/2016, 4:42 PM Gayr Tavares - 07/14/2016 3:37 PM CDT Pt has an urgent order stating 'recurrent pain and swelling in feet. suspect gout but multiarticularpresentation this time.' Please advise for scheduling. documented in this encounter Plan of Treatment Not on filedocumented as of this encounter Visit Diagnoses Not on filedocumented in this encounter Care Teams Termite Control Representative Relationship Specialty Start Date End Date Kristine Brown MD PCP - General Family Practice 03/25/13 [address] [place] [address] documented as of this encounter
--- OUTSIDE RECORDS SUMMARY | 2022-02-22 13:40 | XMS_ITS | Encounter Summary ---
:1945 Author Organization [employer] Address [address], [place] [address] Care Team Providers Name Role Phone Kristine Brown MD Primary Care Provider Encounter Details Date Type Department Care Team Description 07/27/2016 Lab Visit [facility] Gout, un specified cause, Laboratory unspecified chronicity, [address] unspecified site [place], [place] [phone] Social History Tobacco Use Types Packs/Day Years [...] 07/27/2016 1:15 PM C DT Performed at [facility], [address] [place] [address] ??[phone] Prateek Britton MD LAB_1 Performing Organization Address City/[facility] Phon e Number [facility] [phone] ALT (SGPT) (07/27/2016 8:53 AM CDT) athologist Signature ALT (SGPT) 26 0 - 55 U/L [facility] Specimen Anatomical Collection Method Collection Time Receive d Time (Source) Location / / Volume Laterality 07/27/2016 8:53 AM 7 8:56 CDT AM CDT Narrative [facility] - 07/27/2016 1:15 PM C DT Performed at [facility], [address] [place] [address] ??[phone] Prateek Britton MD LAB_1 Performing Organization Address City/[facility] Phon e Number [facility] [phone] AST (07/27/2016 8:53 AM CDT) P athologist Signature AST (SGOT) 18 10 - 40 U/L [facility] Specimen Anatomical Collection Method Collection Time Receive d Time (Source) Location / / Volume Laterality 07/27/2016 8:53 AM 7 8:56 CDT AM CDT Narrative [facility] - 07/27/2016 1:15 PM C DT Performed at [facility], [address] [place] [address] ??[phone] Prateek Britton MD LAB_1 Performing Organization Address [facility] Phon e Number [facility] [phone] Complete Blood Count-W/Diff (07/27/2016 8:53 AM CDT) [...] [facility] Lymph 22 % [facility] [place] 13 % [facility] Eos 3 % [facility] Baso 0 % [facility] Neutrophil 3.0 1.8 - 7.7 [facility] k/ul [facility] Lymph Absolute 1.1 1.0 - 4.8 [facility] k/ul [facility] [place] Absolute 0.7 0.1 - 0.7 [facility] k/ul [...] 07/27/2016 1:48 PM C DT Performed at [facility], [address] [place] [address] ??[phone] Prateek Britton MD LAB_1 Performing Organization Address City/State/ZIP Code Phon e Number [facility] [phone] (ABNORMAL) Uric Acid (07/27/2016 8:53 AM CDT) P athologist Signature Uric Acid 8.1 (H) 3.5 - 7.2 [facility] mg/dl Specimen Anatomical Collection Method Collection Time Receive d Time (Source) Location / / Volume Laterality 07/27/2016 8:53 AM 7 8:56 CDT AM CDT Narrative [facility] - 07/27/2016 1:15 PM C DT Performed at [facility], [address] [place] [address] ??[phone] Prateek Britton MD LAB_1 Performing Organization Address City/State/ZIP Code Phon e Number [facility] [phone] documented in this encounter Visit Diagnoses Diagnosis Gout, unspecified cause, unspecified chr onicity, unspecified site documented in this encounter Care Teams Veterinary Virus Serum Inspector Relationship Specialty Start Date End Date Kristine Brown MD PCP - General Family Practice 03/25/13 [address] [place] [address] documented as of this encounter
--- OUTSIDE RECORDS SUMMARY | 2022-02-22 13:40 | XMS_ITS | Encounter Summary ---
:1945 Author Organization [facility] Address [address] [place] [address] Care Team Providers Name Role Phone Kristine Brown MD Primary Care Provider Encounter Details Date Type Department Care Team Description 10/26/2016 Telephone [facility] Center 401 Emma Britton MD Rheumatology Clinic [address] [place], [place] [id number] [place] [address] [phone] Social History Tobacco Use Types Packs/Day Years [...] on filedocumented in this encounter Care Teams Gelatin Plant Supervisor Relationship Specialty Start Date End Date Kristine Brown MD PCP - General Family Practice 03/25/13 [address] [place] [address] documented as of this encounter
--- OUTSIDE RECORDS SUMMARY | 2022-02-22 13:40 | XMS_ITS | Encounter Summary ---
:[address] [facility] Address [address] [place] [address] Care Team Providers Name Role Phone Kristine Brown MD Primary Care Provider Encounter Details Date Type Department Care Team Description 04/18/2016 Refill Order [facility] Kristine Brown MD Practice [id number] [place] [address] [place] [address] [place] [address] [phone] Social History Tobacco Use Types Packs/Day Years [...] notified. Charlene Ortega CMA 05/05/2016, 6:11 PM EN MAKING SUPERVISOR documented in this encounter Plan of Treatment Not on filedocumented as of this encounter Visit Diagnoses Diagnosis Encounter for long-term (current) use of medications - Primary Encounter for long-term (current) use of other medications documented in this encounter Care Teams Irs Agent Relationship Specialty Start Date End Date Kristine Brown MD PCP - General Family Practice 03/25/13 [address] [place] [address] documented as of this encounter
--- OUTSIDE RECORDS SUMMARY | 2022-02-22 13:40 | XMS_ITS | Encounter Summary ---
:1945 Author Organization [facility] CenterInter[facility] Address [address] [place] [address] Care Team Providers Name Role Phone Kristine Brown MD Primary Care Provider Reason for Visit Reason Comments Encounter Details Date Type Department Care Team Description 07/27/2016 Telephone [facility] Center 401 Emma Britton MD Rheumatology Clinic [address] [facility] [address] [facility] [place] [address] [place] [address] [phone] Social History Tobacco Use Types Packs/Day Years [...] this encounter Care Teams Founder And Chief Executive Officer Relationship Specialty Start Date End Date Kristine Brown MD PCP - General Family Practice 03/25/13 [address] [place] [address] documented as of this encounter
--- OUTSIDE RECORDS SUMMARY | 2022-02-22 13:40 | XMS_ITS | Encounter Summary ---
:1945 Author Organization [facility] Address [address] [place] [address] Care Team Providers Name Role Phone Kristine Brown MD Primary Care Provider Reason for Referral Consult/Transfer Care (Routine) - Closed Specialty Diagnoses / Procedures Referred By Contact Refer red To Contact Diagnoses Gout, unspecified cause, unspecified chronicity, unspecified site Prateek Britton MD Ford, Rhea S, MD [address] [facility] [address] [place] [address] [place] [address] Fax: Referral ID Status Reason Start Date Expiration Date Visits Requ ested Visits Authorized [id number] Closed 07/27/2016 10/26/2017 1 1 Scheduling Instructions Your provider has recommended an appoint ment to follow up on your high blood pressure. A pleasure craft sailor will contact you t o assist you in setting up this appointment. If you prefer, you can [facility] to schedule. There are no co-pays for medication therapy managemen t (clinical pharmacist) or nurse blood pressure checks. Reason for Visit Reason Comments Consult, New Patient Consult/Transfer Care (Routine) - Closed Specialty Diagnoses / Procedures Referred By Contact Refer red To Contact Diagnoses [place] [address] [place], [place] [address] Referral ID Status Reason Start Date Expiration Date Visits Requ ested Visits Authorized [id number] Closed 07/14/2016 10/13/2017 1 1 Encounter Details Date Type Department Care Team Description 07/27/2016 Office Visit Specialty Center 401 Prateek Britton G out, unspecified Rheumatology Clinic cause, unspecified [address] chronicity, [place] [address] [place], [place] unspecified site [phone] (Primary Dx) Social History Tobacco Use Types [...] Britton MD - 07/27/2016 8:[address] 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 HTN (hypertension) ([facility]) Nurse managed 04/09/2013 ??? History of [...] of bilateral DIPs, PIPs, MCP joints. 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 Hypertension (HTN) Follow Up ([id number]) ??? allopurinol (ZYLOPRIM) 100 MG tablet ??? [...] Gout, unspecified Orde red: 07/27/2016 Follow Up ([id number]) cause, unspecified chronicity, unspecified site documented as [...] C DT Performed at [facility], [address] ??[address] Prateek Britton MD LAB_1 Performing Organization Address City/State/ZIP Code Phon e Number [facility] [phone] Creatinine / GFR (2017 2:56 PM CDT) Analysis Performed At [facility] logist Time Signature Creatinine 1.08 0.73 - [...] C DT Performed at [facility], [address] [place] [address] ??[address] Prateek Britton MD LAB_1 Performing Organization Address City/[facility]/ZIP Code Phon e Number [facility] [phone] ALT (SGPT) (2017 2:56 PM CDT) athologist Signature ALT (SGPT) 25 0 - 55 U/L [facility] Specimen Anatomical Collection Method Collection Time Receive d Time (Source) Location / / Volume Laterality 2017 2:56 PM 7 3:01 CDT PM CDT Narrative [facility] - 2017 7:18 PM C DT Performed at [facility], [address] [place] [address] ??[address] Prateek Britton MD LAB_1 Performing Organization Address [facility] Phon e Number [facility] [phone] AST (2017 2:56 PM CDT) P athologist Signature AST (SGOT) 19 10 - 40 U/L [facility] Specimen Anatomical Collection Method Collection Time Receive d Time (Source) Location / / Volume Laterality 2017 2:56 PM 7 3:01 CDT PM CDT Narrative [facility] - 2017 7:18 PM C DT Performed at [facility], [address] [place] [address] ??[address] Prateek Britton MD LAB_1 Performing Organization Address City/[facility]/ZIP Code Phon e Number [facility] [phone] (ABNORMAL) Complete Blood Count-W/Diff (2017 2:56 PM CDT) [facility] gist Method Time Signature WBC 4.7 4.0 [...] [facility] Lymph 20 % [facility] Anson 9 % [facility] Eos 2 % [facility] Baso 0 % [facility] Neutrophil 3.2 1.8 - 7.7 [facility] k/ul [facility] Lymph Absolute 0.9 (L) 1.0 - 4.8 [facility] [place] Absolute 0.4 0.1 - 0.7 [facility] k/ul [...] C DT Performed at [facility], [address] [place] [address] ??[address] Prateek Britton MD LAB_1 Performing Organization Address City/State/ZIP Code Phon e Number [facility] [phone] Uric Acid (10/26/2016 9:01 AM CDT) athologist Signature Uric Acid 6.5 3.5 - 7.2 [facility] mg/dl Specimen Anatomical Collection Method Collection Time Receive d Time (Source) Location / / Volume Laterality 10/26/2016 9:01 AM 7 9:03 CDT AM CDT Narrative [facility] - 10/26/2016 12:10 PM CDT Performed at [address] ??[address] Prateek Britton MD LAB_1 Performing Organization Address [facility] Phon e Number [facility] [phone] Creatinine / GFR (10/26/2016 9:01 AM CDT) [...] - 10/26/2016 12:10 PM CDT Performed at [address] ??[address] Prateek Britton MD LAB_1 Performing Organization Address [facility] Phon e Number [facility] [phone] ALT (SGPT) (10/26/2016 9:01 AM CDT) athologist Signature ALT (SGPT) 23 0 - 55 U/L [facility] Specimen Anatomical Collection Method Collection Time Receive d Time (Source) Location / / Volume Laterality 10/26/2016 9:01 AM 7 9:03 CDT AM CDT Narrative [facility] - 10/26/2016 12:10 PM CDT Performed at [address] ??[address] Prateek Britton MD LAB_1 Performing Organization Address [facility]/ZIP [facility] Phon e Number [facility] [phone] AST (10/26/2016 9:01 AM CDT) P athologist Signature AST (SGOT) 17 10 - 40 U/L [facility] Specimen Anatomical Collection Method Collection Time Receive d Time (Source) Location / / Volume Laterality 10/26/2016 9:01 AM 07/05/201 7 9:03 CDT AM CDT Narrative [facility] - 10/26/2016 12:10 PM CDT Performed at [address] ??[address] Prateek Britton MD LAB_1 Performing Organization Address City/State/ZIP Code Phon e Number [facility] [phone] (ABNORMAL) Complete Blood Count-W/Diff (10/26/2016 9:01 AM CDT) [facility] Method Time Signature WBC 6.3 4.0 - [...] [facility] Lymph 13 % [facility] Anson 9 % [facility] Eos 2 % [facility] Baso 0 % [facility] Neutrophil 4.7 1.8 - 7.7 [facility] k[facility]ul [facility] Lymph Absolute 0.8 (L) 1.0 - 4.8 [facility]ul [facility] [place] Absolute 0.6 0.1 - 0.7 [facility] k/ul [...] C DT Performed at [facility], [address] [place] [address] ??[address] Prateek Britton MD LAB_1 Performing Organization Address City/State/ZIP Code Phon e Number [facility] [phone] (ABNORMAL) Uric Acid (08/12/2016 7:53 AM CDT) P athologist Signature Uric Acid 7.4 (H) 3.5 - 7.2 [facility] mg/dl Specimen Anatomical Collection Method Collection Time Receive d Time (Source) Location / / Volume Laterality 08/12/2016 7:53 AM 7 7:54 CDT AM CDT Narrative [facility] - 08/12/2016 12:22 PM CDT Performed at [facility], [address] [place] [address] ??[address] Prateek Britton MD LAB_1 Performing Organization Address City/[facility] Code Phon e Number [facility] [phone] (ABNORMAL) Creatinine / GFR (08/12/2016 7:53 AM [...] 12:22 PM CDT Performed at [facility], [address] [place] [address] ??[address] Prateek Britton MD LAB_1 Performing Organization Address City/State/ZIP Code Phon e Number [facility] [phone] ALT (SGPT) (08/12/2016 7:53 AM CDT) P athologist Signature ALT (SGPT) 31 0 - 55 U/L [facility] Specimen Anatomical Collection Method Collection Time Receive d Time (Source) Location / / Volume Laterality 08/12/2016 7:53 AM 7 7:54 CDT AM CDT Narrative [facility] - 08/12/2016 12:22 PM CDT Performed at [facility], [address] [place] [address] ??[address] Prateek Britton MD LAB_1 Performing Organization Address City/[facility] Phon e Number [facility] [phone] AST (08/12/2016 7:53 AM CDT) athologist Signature AST (SGOT) 23 10 - 40 U/L [facility] Specimen Anatomical Collection Method Collection Time Receive d Time (Source) Location / / Volume Laterality 08/12/2016 7:53 AM 7 7:54 CDT AM CDT Narrative [facility] - 08/12/2016 12:22 PM CDT Performed at [facility], [address] [place] [address] ??[address] Prateek Britton MD LAB_1 Performing Organization Address City/[facility] Phon e Number [facility] [phone] (ABNORMAL) Complete Blood Count-W/Diff (08/12/2016 7:53 AM CDT) [facility] gist Method Time Signature WBC 3.0 (L) [...] [facility] Lymph 26 % [facility] Anson 19 % [facility] Eos 6 % [facility] Baso 0 % [facility] Neutrophil 1.4 (L) 1.8 - 7.7 [facility]ul [facility] Lymph Absolute 0.8 (L) 1.0 - 4.8 [facility]ul [facility] [place]son Absolute 0.6 0.1 - 0.7 [facility] k/ul [...] DT Performed at [facility], [address] [place] [address] ??[address] Prateek Britton MD LAB_1 Performing Organization Address [facility] Phon e Number [facility] [phone] Creatinine / GFR (07/27/2016 8:53 AM CDT) [...] DT Performed at [facility], [address] [place] [address] ??[address] Prateek Britton MD LAB_1 Performing Organization Address City/[facility] Phon e Number [facility] [phone] ALT (SGPT) (07/27/2016 8:53 AM CDT) P athologist Signature ALT (SGPT) 26 0 - 55 U/L [facility] Specimen Anatomical Collection Method Collection Time Receive d Time (Source) Location / / Volume Laterality 07/27/2016 8:53 AM 7 8:56 CDT AM CDT Narrative [facility] - 07/27/2016 1:15 PM C DT Performed at [facility], [address] [place] [address] ??[address] Prateek Britton MD LAB_1 Performing Organization Address [facility] Phon e Number [facility] [phone] AST (07/27/2016 8:53 AM CDT) P athologist Signature AST (SGOT) 18 10 - 40 U/L [facility] Specimen Anatomical Collection Method Collection Time Receive d Time (Source) Location / / Volume Laterality 07/27/2016 8:53 AM 7 8:56 CDT AM CDT Narrative [facility] - 07/27/2016 1:15 PM C DT Performed at [facility], [address] [place] [address] ??[address] Prateek Britton MD LAB_1 Performing Organization Address City/[facility] Phon e Number [facility] [phone] Complete Blood Count-W/Diff (07/27/2016 8:53 AM CDT) [...] [facility] Lymph 22 % [facility] Anson 13 % [facility] Eos 3 % [facility] Baso 0 % [facility] Neutrophil 3.0 1.8 - 7.7 [facility] Lymph Absolute 1.1 1.0 - 4.8 [facility] [place] Absolute 0.7 0.1 - 0.7 [facility]/ul [...] 07/27/2016 1:48 PM C DT Performed at [facility], [address] [place] [address] Prateek Britton MD LAB_1 Performing Organization Address City/[facility] Phon e Number [facility] [phone] (ABNORMAL) Uric Acid (07/27/2016 8:53 AM CDT) P athologist Signature Uric Acid 8.1 (H) 3.5 - 7.2 [facility] mg/dl Specimen Anatomical Collection Method Collection Time Receive d Time (Source) Location / / Volume Laterality 07/27/2016 8:53 AM 7 8:56 CDT AM CDT Narrative [facility] - 07/27/2016 1:15 PM C DT Performed at [facility], [address] [place] [address] ??[address] Prateek Britton MD LAB_1 Performing Organization Address City/[facility] Phon e Number [facility] [phone] documented in this encounter Visit Diagnoses Diagnosis Gout, unspecified cause, unspecified chr onicity, unspecified site - Primary Gout, unspecified cause, unspecified chr onicity, unspecified site Gout, unspecified cause, unspecified chr onicity, unspecified site Gout, unspecified cause, unspecified chr onicity, unspecified site Gout, unspecified cause, unspecified chr onicity, unspecified site documented in this encounter Care Teams Event Specialist Relationship Specialty Start Date End Date Kristine Brown MD PCP - General Family Practice 03/25/13 [address] [place], [place] [id number] documented as of this encounter
--- OUTSIDE RECORDS SUMMARY | 2022-02-22 13:40 | XMS_ITS | Encounter Summary ---
:1945 Author Organization [employer] Address [address] [place] [address] Care Team Providers Name Role Phone Kristine Brown MD Primary Care Provider Reason for Visit Reason Comments Refill Encounter Details Date Type Department Care Team Description 10/31/2016 Telephone Specialty Center 401 Emma Britton MD Refill Rheumatology Clinic [address] [place] [address] [place] [address] [phone] Social History Tobacco Use Types Packs/Day Years [...] and all questions answered. Fern Gunn CMA (AAFL) Galileo Rodarte MD - 10/31/2016 12:19 PM [...] on filedocumented in this encounter Care Teams Assurance Officer Relationship Specialty Start Date End Date Kristine Brown MD PCP - General Family Practice 03/25/13 [address] [place] [address] documented as of this encounter
--- OUTSIDE RECORDS SUMMARY | 2022-02-22 13:40 | XMS_ITS | Encounter Summary ---
:1945 Author Organization [facility] Address [address] [place] [address] Care Team Providers Name Role Phone Kristine Brown MD Primary Care Provider Reason for Visit Reason Comments Refill Encounter Details Date Type Department Care Team Description 02/27/2017 Refill [facility] Curve Morris t, Prateek Mcbride MD [facility]ill [facility] [address] [place] [address] [place] [address] [phone] Social History Tobacco Use Types Packs/Day Years [...] filedocumented in this encounter Care Teams Labor Relations Teacher Relationship Specialty Start Date End Date Kristine Brown MD PCP - General Family Practice 03/25/13 [address] [place], [place] [id number] documented as of this encounter
--- OUTSIDE RECORDS SUMMARY | 2022-02-22 13:40 | XMS_ITS | Encounter Summary ---
:1945 Author Organization [facility] Address [address] [place] [address] Care Team Providers Name Role Phone Kristine Brown MD Primary Care Provider Encounter Details Date Type Department Care Team Description 01/25/2017 Telephone Specialty Center 401 Emma Britton MD Rheumatology Clinic [address] [place], [place] [address] [place] [address] [phone] Social History Tobacco Use Types Packs/Day Years [...] Primary documented in this encounter Care Teams Hand Packer Relationship Specialty Start Date End Date Kristine Brown MD PCP - General Family Practice 03/25/13 [address] [place] [address] documented as of this encounter
--- OUTSIDE RECORDS SUMMARY | 2022-02-22 13:40 | XMS_ITS | Encounter Summary ---
:1945 Author Organization [facility] Address [address] [place] [address] Care Team Providers Name Role Phone Kristine Brown MD Primary Care Provider Encounter Details Date Type Department Care Team Description 10/26/2016 Telephone Specialty Center 401 Emma Britton MD Rheumatology Clinic [address] [place] [address] [place] [address] [phone] Social History Tobacco Use Types Packs/Day Years [...] filedocumented in this encounter Care Teams Computer Field Technician Relationship Specialty Start Date End Date Kristine Brown MD PCP - General Family Practice 03/25/13 [address] [place] [address] documented as of this encounter
--- OUTSIDE RECORDS SUMMARY | 2022-02-22 13:40 | XMS_ITS | Encounter Summary ---
:1945 Author Organization [employer] Address [address] [place] [address] Care Team Providers Name Role Phone Kristine Brown MD Primary Care Provider Reason for Visit Reason Comments Broken Tooth Encounter Details Date Type Department Care Team Description 07/11/2017 Telephone [facility] radha Rome DDS Broken Tooth Dentistry [address] [facility] [address] [place] [address] [place], [place] [address] [phone] Social History Tobacco Use Types Packs/Day Years [...] causing your problem? [] Accident [] Lost Amish [x] Broken Tooth [] Chipped Tooth Location: [...] on filedocumented in this encounter Care Teams Insurance Representative Relationship Specialty Start Date End Date Kristine Brown MD PCP - General Family Practice 03/25/13 [address] [place] [address] documented as of this encounter
--- OUTSIDE RECORDS SUMMARY | 2022-02-22 13:40 | XMS_ITS | Encounter Summary ---
:1945 Author Organization [employer] Address [address] [place] [address] Care Team Providers Name Role Phone Kristine Brown MD Primary Care Provider Reason for Visit Reason Comments Concerns right foot-gout? Health Maintenance Communication HM usually thru the V A per pt Encounter Details Date Type Department Care Team Description 05/19/2016 Office Visit [facility] Logan Espitia MD Arthralgia of right Practice [address] [facility] foot (Primary Dx) [address] [place] [phone] Social History Tobacco Use Types Packs/Day Years [...] Comments Blood Pressure 140/79 05/19/2016 9:46 AM DISC PAD PLATE FILLER Pulse 81 05/19/2016 9:46 AM DISC PAD PLATE FILLER Temperature 37 ??C (98.6 ??F) 05/19/2016 9:41 AM DISC PAD PLATE FILLER Respiratory Rate 14 05/19/2016 9:41 AM DISC PAD PLATE FILLER Oxygen Saturation - - Inhaled Oxygen Concentration - - Weight 105.9 kg (233 lb 6 oz) 05/19/2016 9:41 AM DISC PAD PLATE FILLER Height 182.2 cm (5' 11.75) 05/19/2016 9:41 AM DISC PAD PLATE FILLER Body Mass Index 31.87 05/19/2016 9:41 AM DISC PAD PLATE FILLER documented in this encounter Patient Instructions Patient [...] your doctor if you can take an mpzo-ahz-upxympy medicine. ?? Eat less seafood and red [...] can you learn more? 1. Go to [employer] or [employer]. 2. Enter E531 in the search box. Current as of: June 17, 2015 Content Version: 11.0 ?? [id number] [employer]. PAD PLATE FILLER documented in this encounter Progress Notes Logan [...] years ago. Patient recently followed at the [facility] and underwent prostate biopsy 10 days ago which was apparently benign. He is due for lab work here but states he had lab work at the [facility] in February and plans to bring those [...] with allopurinol if diagnosis of gout confirmed. PAD PLATE FILLER documented in this encounter Plan of Treatment Not on filedocumented as of this encounter Visit Diagnoses Diagnosis Arthralgia of right foot - Primary Pain in joint, ankle and foot documented in this encounter Care Teams Special Agent Fbi Relationship Specialty Start Date End Date Kristine Brown MD PCP - General Family Practice 03/25/13 [address] [place] [address] documented as of this encounter
--- OUTSIDE RECORDS SUMMARY | 2022-02-22 13:40 | XMS_ITS | Encounter Summary ---
:1945 Author Organization [facility] Address [address] [place] [address] Care Team Providers Name Role Phone Kristine Brown MD Primary Care Provider Reason for Visit Reason Comments Dental Conversion Legacy EDR to [place] convers ion Encounter Details Date Type Department Care Team Description 09/29/2016 Dental Conversion [facility] Prashant Eitan, [facility] Montserrat Sahu, DDS [address] [facility] [address] [place], [place] [address] [place], [place] [phone] [address] Social History Tobacco Use Types Packs/Day Years [...] Armen needs to sign a [place] Estimate AL WEAR RENTAL CLERK Interface, In Edr Dental Conversion - [...] convienient. I stated someone from the front desk officer would be calling in 10-20 minutes to schedule the appointment. I told him we appreciated his patience and he stated he was very happy with how things were being handled. I told him he could personally call me with any questions or concerns he had. Miscellaneous - Interface, In Edr Dental Conversion - 05/04/2015 12:00 AM FORMAL WEAR RENTAL CLERK 05/04/2015: RX Called To Pharmacy: Rx: amoxicillin transmitted to [facility] pharmacy. Pt to follow up w/ Dr. Ram if symtpoms persist. AL WEAR RENTAL CLERK Miscellaneous - Interface, In Edr Dental Conversion - 05/04/2015 12:00 AM FORMAL WEAR RENTAL CLERK 05/04/2015: Outgoing Phone Call: spoke to pt know Dr. Ramos is calling in rx [facility] AL WEAR RENTAL CLERK Miscellaneous - Interface, In Edr Dental Conversion - 05/04/2015 12:00 AM FORMAL WEAR RENTAL CLERK 05/04/2015: Rx Request: Pt had endo#3 [...] willingly to pick Rx up from the [facility] pharmacy. Pt can be reached back at cell# [phone] or home# [phone]. Clinic informed of this as Dr. Ram is not working at all today. My AL WEAR RENTAL CLERK documented in this encounter Plan of Treatment Not on filedocumented as of this encounter Visit Diagnoses Not on filedocumented in this encounter Care Teams Heavy Threader Relationship Specialty Start Date End Date Kristine Brown MD PCP - General Family Practice 03/25/13 [address] [place] [address] documented as of this encounter
--- OUTSIDE RECORDS SUMMARY | 2022-02-22 13:40 | XMS_ITS | Encounter Summary ---
:1945 [facility] Address [address] [place] [address] Care Team Providers Name Role Phone Kristine Brown MD Primary Care Provider Reason for Referral Consult/Transfer Care (Routine) - Closed Specialty Diagnoses / Procedures Referred By Contact Refer red To Contact Diagnoses Essential hypertension (HR[place]) [place] [address] [place], [place] [address] Referral ID Status Reason Start Date Expiration Date Visits Requ ested Visits Authorized [id number] Closed 11/07/2016 02/06/2018 1 1 Scheduling Instructions Your provider has recommended an appoint ment with a [facility] nurse. A u.s. representative will contact you within the next 3 in ess days to assist you in setting up this appointment. Reason for Visit Reason Comments FOLLOW-UP,BP Consult/Transfer Care (Routine) - Closed Specialty Diagnoses / Procedures Referred By Contact Refer red To Contact Family Medicine Diagnoses Essential hypertension (HRC) Prateek Britton MD [address] [place] [address] Phone: Fax: Referral ID Status Reason Start Date Expiration Date Visits Requ ested Visits Authorized [id number] Closed 10/26/2016 01/25/2018 1 1 Encounter Details Date Type Department Care Team Description 11/07/2016 Office Visit [facility] Kristine Brown MD Essential hypertension Practice [address] [facility] (Primary Dx) [address] [place] [address] [phone] Social History Tobacco Use Types Packs/Day Years [...] Name Type Priority Associated Diagnoses [facility] Referral Routine Essential hypertension Ordered: 11/07/2016 ADULT/PEDS [[id number]] documented as of this encounter Visit Diagnoses Diagnosis Essential hypertension (HRC) - Primary Unspecified essential hypertension documented in this encounter Care Teams Home Sales Service Professional Relationship Specialty Start Date End Date Kristine Brown MD PCP - General Family Practice 03/25/13 [address] [place] [address] documented as of this encounter
--- OUTSIDE RECORDS SUMMARY | 2022-02-22 13:40 | XMS_ITS | Encounter Summary ---
:1945 Author Organization [facility] Address [address] [place] [address] Care Team Providers Name Role Phone Kristine [...] Department Care Team Description 07/12/2017 Office Visit [facility] Roberto Carlos Hernandez S, Visit for eye and vision exa m (Primary Dx); [address] OD Myopia, bilateral; [place], [place] [address] Regular astigmatism, bilater al; [phone] Presbyopia; Nuclear sclerot ic cataract of both [...] 11:10 AM CDT Thank you for choosing [facility] for your eye care needs. Many tests [...] the clinic in the future? Appointment Center: [phone] Eye Dept: [phone] Online Services: [email or web address] For after hours care, call the CareLine at [phone] or . We look forward to taking [...] sclerosis documented in this encounter Care Teams Parts Salesman Relationship Specialty Start Date End Date Kristine Brown MD PCP - General Family Practice 03/25/13 [address] [place] [address] documented as of this encounter
--- OUTSIDE RECORDS SUMMARY | 2022-02-22 13:40 | XMS_ITS | Encounter Summary ---
:1945 Author Organization [employer] Address [address] [place] [address] Care Team Providers Name Role Phone Kristine Brown MD Primary Care Provider Reason for Referral Consult/Transfer Care (Routine) - Closed Specialty Diagnoses / Procedures Referred By Contact Refer red To Contact Family Medicine Diagnoses Essential hypertension (HRC) Prateek Britton MD Family Practice [address] [address] [place] [address] [place] [address] Phone: Fax: Referral ID Status Reason Start Date Expiration Date Visits Requ ested Visits Authorized [id number] Closed 10/26/2016 01/25/2018 1 1 Scheduling Instructions Your provider has recommended an appoint ment to follow up on your high blood pressure. A mill order scheduler will contact you t o assist you in setting up this appointment. If you prefer, you can contact your [facility] clinic to schedule. There are no co-pays for medication therapy managemen t (clinical pharmacist) or nurse blood pressure checks. Reason for Visit Reason Comments Revisit Encounter Details Date Type Department Care Team Description 10/26/2016 Office Visit [facility] [address] Prateek Britton G out, unspecified cause, unspecified chronicity, unspecified site (Primary Dx); Rheumatology Clinic Essential hypertension [address] [place] [address] DARRION TRISTAN [phone] Social History Tobacco Use Types Packs/Day Years [...] Britton MD - 10/26/2016 9:00 AM CDT [facility] Rheumatology Outpatient Consultation Report Date: 10/26/16 [...] Problems Diagnosis Date Noted ??? HTN (hypertension) ([facility]) Nurse managed 04/09/2013 ??? History of [...] of bilateral DIPs, PIPs, MCP joints. Normal hand-harness rigger without pain Knee - no joint effusion [...] Routine Essential hypertension Ordered: 10/26/2016 Follow Up ([id number]) documented as of this encounter Visit Diagnoses Diagnosis Gout, unspecified cause, unspecified chr onicity, unspecified site - Primary Essential hypertension (HRC) Unspecified essential hypertension documented in this encounter Care Teams Hoop Flaring Machine Operator Relationship Specialty Start Date End Date Kristine Brown MD PCP - General Family Practice 03/25/13 [address] [place] [address] documented as of this encounter
--- OUTSIDE RECORDS SUMMARY | 2022-02-22 13:40 | XMS_ITS | Encounter Summary ---
:1945 Author Organization [employer] Address [address] [address] Care Team Providers Name Role Phone Kristine Brown MD Primary Care Provider Reason for Visit Reason Comments Encounter Details Date Type Department Care Team Description 08/15/2016 Telephone [facility] Prateek Elizabeth MD [facility] [address] [place] [address] [place] [address] [phone] Social History Tobacco Use Types Packs/Day Years [...] Primary documented in this encounter Care Teams Energy Administrator Relationship Specialty Start Date End Date Kristine Brown MD PCP - General Family Practice 03/25/13 [address] [place] [address] documented as of this encounter
--- OUTSIDE RECORDS SUMMARY | 2022-02-22 13:40 | XMS_ITS | Encounter Summary ---
:1945 Author Organization [employer] Address [address] [place] [address] Care Team Providers Name Role Phone Kristine Brown MD Primary Care Provider Reason for Referral Consult/Transfer Care (Routine) - Closed Specialty Diagnoses / Procedures Referred By Contact Refer red To Contact Diagnoses [place] [address] [place], [place] [address] Referral ID Status Reason Start Date Expiration Date Visits Requ ested Visits Authorized [id number] Closed 07/14/2016 10/13/2017 1 1 Scheduling Instructions Your provider has recommended an appoint ment with [facility]. You may call [phone] to schedule your a ppointment. If you prefer, a education program manager will contact you within the next 3 business d ays to assist you in setting up this appointment. We suggest you call your [employer] about your coverage and benefits for this appointment. Reason for Visit Reason Comments PAIN, FOOT Encounter Details Date Type Department Care Team Description 07/14/2016 Office Visit [facility] Thaddeus Rodriguez (Primary Dx); Milla Negrete MD Gout of left ankle, unspecified cause, u nspecified chronicity; [address] [facility] [address] [facility] Essential [place] [address] [phone] Social History Tobacco Use Types Packs/Day Years [...] documented in this encounter Progress Notes Thaddeus Rodrigeuz MD - 07/14/2016 6:52 PM CDT SUBJECTIVE: [...] recently had some blood work at the [facility] this was reviewed and he has a [...] Name Type Priority Associated Diagnoses Order S [facility] Rheumatology Referral Routine Arthritis Ordered: 2016 Consult-Adults documented as of this encounter Results Lyme Antibody, and Western Blot If Needed) (07/14/2016 2:41 PM CDT) Component Value Ref Test Analysis Performed At [facility] Range Method Time Signature Lyme Negative [...] - 07/15/2016 10:59 AM CDT Performed at [facility], [address] [place] [address] Thaddeus Rodriguez MD LAB_1 Performing Organization Address City/State/ZIP Code Phon e Number [facility] [phone] Rheumatoid Factor, Quant (07/14/2016 2:41 PM CDT) P athologist Signature Quant. Rheum. <15 0 - 30 [facility] Factor IU/ml [facility] Specimen Anatomical Collection Method Collection Time Receive d Time (Source) Location / / Volume Laterality 07/14/2016 2:41 PM 7 2:44 CDT PM CDT Narrative [facility] - 07/14/2016 6:55 PM C DT Performed at [facility], [address] [place] [address] ??[address] Thaddeus Rodriguez MD LAB_1 Performing Organization Address City/[facility] Code Phon e Number [facility] [phone] ARNIE Screen (07/14/2016 2:41 PM CDT) athologist Signature ARNIE Screen Negative NEG [facility] Specimen Anatomical Collection Method Collection Time Receive d Time (Source) Location / / Volume Laterality 07/14/2016 2:41 PM 7 2:44 CDT PM CDT Narrative [facility] - 07/15/2016 1:24 PM C DT Performed at [facility], [address] [place] [address] ??[address] Thaddeus Rodriguez MD LAB_1 Performing Organization Address City/[facility]/ZIP Code Phon e Number [facility] [phone] (ABNORMAL) C-Reactive Protein (07/14/2016 2:41 PM CDT) [facility] Method Time Signature C-Reactive 4.1 (H) 0.0 - 0.7 [facility] mg/dL [facility] Comment: Note: results are expressed in mg/dL. Specimen Anatomical Collection Method Collection Time Receive d Time (Source) Location / / Volume Laterality 07/14/2016 2:41 PM 7 2:44 CDT PM CDT Narrative [facility] - 07/14/2016 6:58 PM C DT Performed at [facility], [address] [place] [address] ??[id number] Thaddeus Rodriguez MD LAB_1 Performing Organization Address City/[facility]/ZIP Code Phon e Number [facility] [phone] Basic Metabolic Panel (07/14/2016 2:41 PM CDT) [...] 07/14/2016 6:58 PM C DT Performed at [facility], [address] [place] [address] ??[address] Thaddeus Rodriguez MD LAB_1 Performing Organization Address City/[facility]/ZIP Code Phon e Number [facility] [phone] ESR (07/14/2016 2:41 PM CDT) P athologist Signature ESR 2 0 - 15 [facility] mm/hr Specimen Anatomical Collection Method Collection Time Receive d Time (Source) Location / / Volume Laterality 07/14/2016 2:41 PM 7 2:44 CDT PM CDT Narrative [facility] - 07/14/2016 9:09 PM C DT Performed at [facility], [address] [place] [address] ??[address] Thaddeus Rodriguez MD LAB_1 Performing Organization Address City/[facility] Phon e Number [facility] [phone] (ABNORMAL) Uric Acid (07/14/2016 2:41 PM CDT) P athologist Signature Uric Acid 7.5 (H) 3.5 - 7.2 [facility] mg/dl Specimen Anatomical Collection Method Collection Time Receive d Time (Source) Location / / Volume Laterality 07/14/2016 2:41 PM 7 2:44 CDT PM CDT Narrative [facility] - 07/14/2016 6:58 PM C DT Performed at [facility], [address] [place] [address] ??[address] Thaddeus Rodriguez MD LAB_1 Performing Organization Address City/[facility] Phon e Number [facility] [phone] documented in this encounter Visit Diagnoses Diagnosis Arthritis - Primary Arthropathy, unspecified, site unspecifi ed Gout of left ankle, unspecified cause, u nspecified chronicity Essential hypertension (HRC) Unspecified essential hypertension Encounter for long-term (current) use of medications Encounter for long-term (current) use of other medications Arthritis Arthropathy, unspecified, site unspecifi ed documented in this encounter Care Teams Federal Judicial Law Clerk Relationship Specialty Start Date End Date Kristine Brown MD PCP - General Family Practice 03/25/13 [address] [place] [address] documented as of this encounter
--- OUTSIDE RECORDS SUMMARY | 2022-02-22 13:40 | XMS_ITS | Encounter Summary ---
:1945 Author Organization [facility] Address [address] [place] [address] Care Team Providers Name Role Phone Kristine Brown MD Primary Care Provider Reason for Visit Reason Comments Revisit Consult/Transfer Care (Routine) - Closed Specialty Diagnoses / Procedures Referred By Contact Refer red To Contact Diagnoses Essential hypertension (HRC) [place] [address] [place], [place] [address] Referral ID Status Reason Start Date Expiration Date Visits Requ ested Visits Authorized [id number] Closed 11/07/2016 02/06/2018 1 1 Encounter Details Date Type Department Care Team Description 2017 Office Visit [facility] 401 Prateek Britton G out, unspecified Rheumatology Clinic cause, unspecified [address] chronicity, [place] [address] [place], [place] unspecified site [phone] (Primary Dx) Social History Tobacco Use Types [...] Britton MD - 2017 2:40 PM CDT [facility] Rheumatology Outpatient Consultation Report Date: 01/24/17 Reason [...] ??? HTN (hypertension) ([facility]) 04/09/2013 ??? History of basal cell cancer [...] of bilateral DIPs, PIPs, MCP joints. Normal hand-traffic rate analyst without pain Knee - no joint [...] Referral Routine Essential hypertension Ordered: 11/07/2016 ADULT/PEDS [[id number]] documented as of this encounter Visit Diagnoses Diagnosis Gout, unspecified cause, unspecified chr onicity, unspecified site - Primary documented in this encounter Care Teams Safety Representative Relationship Specialty Start Date End Date Kristine Brown MD PCP - General Family Practice 03/25/13 [address] [place] [address] documented as of this encounter
--- OUTSIDE RECORDS SUMMARY | 2022-02-22 13:40 | XMS_ITS | Encounter Summary ---
:1945 Author Organization [facility] Address [address] [place] [address] Care Team Providers Name Role Phone Kristine Brown MD Primary Care Provider Reason for Referral Dental (Routine) - Closed Specialty Diagnoses / Procedures Referred By Contact Refer red To Contact Diagnoses Fracture of crown and root of tooth Karyn Ramos DDS [address] [place], [place] [address] Referral ID Status Reason Start Date Expiration Date Visits Requ ested Visits Authorized [id number] Closed 07/11/2017 01/07/2018 1 1 Scheduling Instructions [...] Department Care Team Description 07/11/2017 Office Visit [facility] Karyn Foster oblem Focused Exam Dentistry [place] ([place] [address] [place] [address] [facility] starting to hurt) [place] [address] [phone] (Wo rk) Social History Tobacco Use Types [...] abscess Periapical abscess without sinus Fractured dental jain with loss o f material Fractured dental restorative material wi th loss of material documented in this encounter Care Teams Shirt Trimmer Relationship Specialty Start Date End Date Kristine Brown MD PCP - General Family Practice 03/25/13 [address] [place] [address] documented as of this encounter
--- OUTSIDE RECORDS SUMMARY | 2022-02-22 13:40 | XMS_ITS | Encounter Summary ---
:1945 Author Organization [employer] Address [address] [address] Care Team Providers Name Role Phone Kristine Brown MD Primary Care Provider Encounter Details Date Type Department Care Team Description 2017 Lab Visit Specialty Center Gout, un specified cause, Laboratory unspecified chronicity, [address] unspecified site [place], [place] [id number] Social History Tobacco Use Types Packs/Day Years [...] 2017 7:18 PM C DT Performed at [address] ??[address] Prateek Britton MD LAB_1 Performing Organization Address City/[facility] Code Phon e Number [facility] [phone] Creatinine / GFR (2017 2:56 PM CDT) [...] 2017 7:18 PM C DT Performed at [facility], [address] [place] [phone] Prateek Britton MD LAB_1 Performing Organization Address City/[facility] Phon e Number [facility] [phone] ALT (SGPT) (2017 2:56 PM CDT) athologist Signature ALT (SGPT) 25 0 - 55 U/L [facility] Specimen Anatomical Collection Method Collection Time Receive d Time (Source) Location / / Volume Laterality 2017 2:56 PM 7 3:01 CDT PM CDT Narrative [facility] - 2017 7:18 PM C DT Performed at [facility], [address] [place] [address] ??[address] Prateek Britton MD LAB_1 Performing Organization Address [facility] Phon e Number [facility] [phone] AST (2017 2:56 PM CDT) P athologist Signature AST (SGOT) 19 10 - 40 U/L [facility] Specimen Anatomical Collection Method Collection Time Receive d Time (Source) Location / / Volume Laterality 2017 2:56 PM 7 3:01 CDT PM CDT Narrative [facility] - 2017 7:18 PM C DT Performed at [facility], [address] [place] [address] ??[phone] Prateek Britton MD LAB_1 Performing Organization Address City/[facility] Phon e Number [facility] [phone] (ABNORMAL) Complete Blood Count-W/Diff (2017 2:56 PM [...] [facility] Lymph 20 % [facility] Gem 9 % [facility] Eos 2 % [facility] Baso 0 % [facility] Neutrophil 3.2 1.8 - 7.7 [facility] Absolute k/ul [facility] Lymph Absolute 0.9 (L) 1.0 - 4.8 [facility] k/ul [facility] Gem Absolute 0.4 0.1 - 0.7 [facility] k/ul [...] 2017 7:26 PM C DT Performed at [facility], [address] [place] [address] ??[address] Prateek Britton MD LAB_1 Performing Organization Address City/State/ZIP Code Phon e Number [facility] [phone] documented in this encounter Visit Diagnoses Diagnosis Gout, unspecified cause, unspecified chr onicity, unspecified site documented in this encounter Care Teams Police Aide Relationship Specialty Start Date End Date Kristine Brown MD PCP - General Family Practice 03/25/13 [address] [place] [address] documented as of this encounter
--- OUTSIDE RECORDS SUMMARY | 2022-02-22 13:41 | XMS_ITS | Encounter Summary ---
:[address] [facility] Address [address], [place] [address] Care Team Providers Name Role Phone Kristine Brown MD Primary Care Provider Encounter Details Date Type Department Care Team Description 04/01/2014 Office Visit [place] Nighat Nieto, Senile nucle ar sclerosis, bilateral (Primary Dx); Ophthalmology Myopia, bilateral [address] [place], [place] [address] [place], [place] [id number] Social History Tobacco Use Types Packs/Day Years [...] exam, sooner for worsening signs or symptoms. ICAL PROCESSING TECHNICIAN documented in this encounter Progress Notes Nighat Nieto MD - 04/01/2014 2:28 PM CST New patient to provider Armen Crump is a 69 yr old male here for evaluation of the retina (was seen at [facility] by drapery and upholstery measurer Broderick Torres in [place] and told he may have spots on [...] exam, sooner for worsening signs or symptoms. ICAL PROCESSING TECHNICIAN documented in this encounter Plan of Treatment Not on filedocumented as of this encounter Visit Diagnoses Diagnosis Senile nuclear sclerosis, bilateral - Pr imary Myopia, bilateral Myopia documented in this encounter Care Teams Military Source Operations Officer Relationship Specialty Start Date End Date Kristine Brown MD PCP - General Family Practice 03/25/13 [address] [place] [address] documented as of this encounter
--- OUTSIDE RECORDS SUMMARY | 2022-02-22 13:41 | XMS_ITS | Encounter Summary ---
:1945 Author Organization [employer] Address [address] [place] [address] Care Team Providers Name Role Phone Unassigned, Provider Primary Care Provider Unavailable Encounter Details Date Type Department Care Team Description 10/15/2012 Orders Only [facility] Hypertension [address] [place], [place] [address] Social History Tobacco Use [...] Results MICROALB/CREAT RATIO (10/15/2012 10:53 AM CDT) [facility] Method Time Signature Albumin, <0.5 mg/dl [...] 10/15/2012 4:09 PM C DT Performed at [facility], [address] [place] [address] Kristine Brown MD LAB_1 Performing Organization Address [facility] Phon e Number [facility] [phone] BASIC METABOLIC PANEL (10/15/2012 10:53 AM CDT) [...] 10/15/2012 4:52 PM C DT Performed at [facility], [address] [place] [address] Kristine Brown MD LAB_1 Performing Organization Address [facility] Phon e Number [facility] [phone] documented in this encounter Visit Diagnoses Diagnosis Hypertension (HRC) Unspecified essential hypertension documented in this encounter Care Teams Critical Care Transport Nurse Relationship Specialty Start Date End Date Unassigned, Provider PCP - General 01/26/00 03/24/[address] [place] [address] documented as of this encounter
--- OUTSIDE RECORDS SUMMARY | 2022-02-22 13:41 | XMS_ITS | Encounter Summary ---
:1945 Author Organization [employer] Address [address] [place] [address] Care Team Providers Name Role Phone Unassigned, Provider Primary Care Provider Unavailable Reason for Visit Reason Comments SKIN LESION Consult/Transfer Care (Routine) - Closed Specialty Diagnoses / Procedures Referred By Contact [place] [address] [place], [place] [address] Referral ID Status Reason Start Date Expiration Date Visits Requ ested Visits Authorized [id number] Closed 01/18/2012 1 1 Encounter Details Date Type Department Care Team Description 01/20/2012 Office Visit [facility] Lucia Quinonez KSchuyler n lesion (Primary [facility] PA-C Dx) [address] [place] [address] [address] [place], [place] [id number] Social History Tobacco Use Types Packs/Day Years [...] Results SURGICAL PATH (01/20/2012 7:00 AM CDT) [facility] Method Time Signature 9911 (NOTE) [facility] Surgical Final Report Patient Name: ARMEN IQBAL Taken: 01/20/2012 Received: 01/20/2012 Reported: 2012 Physician(s): Lucia Quinonez ? Final Pathologic Diagnosis Skin, mid upper back, excision -- ?1. ??Basal cell carcinoma, nodular type with fibrosis, ulcerated ?2. ??All resection margins are negative for carcinoma sbk/01/24/2012 Electronically Signed Out By ? Delia Romero MD ([id number]) Procedures/Addenda Clinical History Mid-upper back skin lesion [...] seven slides. ?? sbk/01/24/2012 Delia Romero MD ([id number]) [facility] Department of Pathology [address] [place] [address] ??[address] Specimen Anatomical Collection Method Collection Time Receive d Time (Source) Location / / Volume Laterality EXCISION OF SKIN / 01/20/2012 7:00 AM 7:24 Unknown CDT PM CDT Lucia Quinonez PA-C LAB_1 Performing Organization Address City/State/ZIP Code Phon e Number [facility]i [phone] [facility] [address] [address] documented in this encounter Visit Diagnoses Diagnosis Skin lesion - Primary Unspecified disorder of skin and subcuta neous tissue documented in this encounter Care Teams Powder Shoveler Relationship Specialty Start Date End Date Unassigned, Provider PCP - General 01/26/00 03/24/[address] [place] [address] documented as of this encounter
--- OUTSIDE RECORDS SUMMARY | 2022-02-22 13:41 | XMS_ITS | Encounter Summary ---
:1945 Author Organization [employer] Address [address] [place] [address] Care Team Providers Name Role Phone [place] Brown MD Primary Care Provider Reason for Visit Reason Comments MEDICATION CHECK Encounter Details Date Type Department Care Team Description 03/26/2013 Office Visit [facility] [place] Brown MD HTN (hypertension) Practice [address] [place] [address] (Primary Dx) [address] [place] [address] [phone] Social History Tobacco Use Types Packs/Day Years [...] Comments Blood Pressure 132/92 03/26/2013 10:20 AM INSPECTOR POISING Pulse 77 03/26/2013 10:01 AM INSPECTOR POISING Temperature - - Respiratory Rate - - Oxygen Saturation - - Inhaled Oxygen Concentration - - Weight 104.2 kg (229 lb 12.8 oz) 03/26/2013 9:55 AM INSPECTOR POISING Height 181.6 cm (5' 11.5) 03/26/2013 9:55 AM INSPECTOR POISING Body Mass Index 31.6 03/26/2013 9:55 AM INSPECTOR POISING documented in this encounter Patient Instructions Patient InstructionsPhillip Brown MD - 03/26/2013 10:25 AM CST Return to clinic for nursing visit in 2 weeks for repeat BP check. Please schedule a lab only visit at this time. ECTOR POISING documented in this encounter Progress Notes [place] [...] signs given.[place] Brown MD 03/27/2013, 6:41 PM ECTOR POISING documented in this encounter Plan of Treatment Not on filedocumented as of this encounter Procedures Procedure Name Priority Date/Time Associated Diagnosis Comme nts ECG 12-LEAD ROUTINE Routine 03/26/2013 10:39 AM HTN (hypertens ion) Results for this INSPECTOR POISING procedure are i n the results section. documented in this encounter Results (ABNORMAL) BASIC METABOLIC PANEL (04/09/2013 10:32 AM INSPECTOR POISING) [facility] Method Time Signature BUN 16 7 [...] / Volume Laterality 04/09/2013 10:32 04/09/2013 AM INSPECTOR POISING 10:33 AM INSPECTOR POISING Narrative [facility] - 04/09/2013 3:[address] Performed at [facility], [address] [place] [address] ??[id number] [place] Brown MD LAB_1 Performing Organization Address City/State/ZIP Code Phon e Number [facility] [phone] ECG 12-LEAD ROUTINE [[id number]] (03/26/2013 10:39 AM INSPECTOR POISING) P athologist Signature Ventricular Rate 63 BPM [facility] Atrial Rate 63 BPM [facility] P-R Interval 166 ms [facility] QRS Duration 96 ms [facility] QT 398 ms [facility] QTc 407 ms [facility] P Bells 20 degrees [facility] Specimen (Source) Anatomical Collection Method Collection Time Re ceived Time Location / / Volume Laterality 03/26/2013 10:39 AM INSPECTOR POISING Narrative [facility] - 03/27/2013 2:42 PM INSPECTOR POISING Sinus rhythm Inferior infarct , age undetermined Abnormal ECG No previous ECGs available Confirmed by [place] BROWN ([id number]), video news editor EDWARDO WILDE ([id number]) on 03/27/2013 2:42:51 PM Procedure Note [place] Brown MD - 03/27/2013 Sinus rhythm Inferior infarct , age undetermined Abnormal ECG No previous ECGs available Confirmed by [place] BROWN ([id number]), video news editor W EDWARDO THOMAS ([id number]) on 03/27/2013 2:42:51 PM [place] Brown MD EKG Performing Organization Address City/State/ZIP Code Phon e Number [facility] [address] [place] [address] documented in this encounter Visit Diagnoses Diagnosis HTN (hypertension) (HRC) - Primary Unspecified essential hypertension HTN (hypertension) (HRC) Unspecified essential hypertension documented in this encounter Care Teams Cytology Laboratory Manager Relationship Specialty Start Date End Date [place] Brown MD PCP - General Family Practice 03/25/13 [address] [place] [address] documented as of this encounter
--- OUTSIDE RECORDS SUMMARY | 2022-02-22 13:41 | XMS_ITS | Encounter Summary ---
:1945 Author Organization [employer] Address [address] [place] [address] Care Team Providers Name Role Phone Unassigned, Provider Primary Care Provider Unavailable Reason for Visit Reason Comments Suture/Staple Removal Health Maintanence Declined flu shot. Encounter Details Date Type Department Care Team Description 01/27/2012 Office Visit [facility], [place] [address] [place], [place] [phone] Encounter [place] [address] [place] [address] of sutures (Primary [address] [facility] Dx) [place] [address] Social History Tobacco Use Types [...] ry documented in this encounter Care Teams Supervisor Payroll Relationship Specialty Start Date End Date Unassigned, Provider PCP - General 01/26/00 03/24/[address] [place] [address] documented as of this encounter
--- OUTSIDE RECORDS SUMMARY | 2022-02-22 13:41 | XMS_ITS | Encounter Summary ---
:1945 Author Organization [employer] Address [address] [place] [address] Care Team Providers Name Role Phone Kristine Brown MD Primary Care Provider Reason for Visit Reason Comments FOLLOW-UP,BP MEDICATION CHECK Encounter Details Date Type Department Care Team Description 04/15/2016 Office Visit [facility] Kristine Brown MD Essential hypertension Practice [id number] [place] [address] (Primary Dx) [address] [place] [address] [phone] Social History Tobacco Use Types Packs/Day Years [...] Comments Blood Pressure 134/84 04/15/2016 10:09 AM COLLEGE RECRUITER Pulse 72 04/15/2016 10:09 AM COLLEGE RECRUITER Temperature - - Respiratory Rate - - [...] days. He had blood work done at [place] in 11/06- he will forward these results [...] scanning. Kristine Brown MD 04/19/2016, 1:07 PM EGE RECRUITER documented in this encounter Plan of Treatment Not on filedocumented as of this encounter Visit Diagnoses Diagnosis Essential hypertension (HRC) - Primary Unspecified essential hypertension documented in this encounter Care Teams Compressor Station Chief Engineer Relationship Specialty Start Date End Date Kristine Brown MD PCP - General Family Practice 03/25/13 [address] [place] [address] documented as of this encounter
--- OUTSIDE RECORDS SUMMARY | 2022-02-22 13:41 | XMS_ITS | Encounter Summary ---
:1945 Author Organization [employer] Address [address] [place] [address] Care Team Providers Name Role Phone Kristine Brown MD Primary Care Provider Reason for Visit Reason Comments BP CHECK,NURSE Encounter Details Date Type Department Care Team Description 04/20/[address]phone [facility] Kristine Brown MD BP CHECK,NURSE Practice [address] [facility] [address] [place] [address] [place] [address] [phone] Social History Tobacco Use Types Packs/Day Years [...] noted. Kristine Brown MD 04/20/2015, 12:22 PM R WHEELCHAIR MECHANIC Radha Wallis LPN - 04/20/2015 10:02 AM CST SEBASTIAN BP-132/81 9-. Radha Wallis LPN 04/20/2015, 10:03 AM R WHEELCHAIR MECHANIC documented in this encounter Plan of Treatment Not on filedocumented as of this encounter Visit Diagnoses Not on filedocumented in this encounter Care Teams Unloader Operator Relationship Specialty Start Date End Date Kristine Brown MD PCP - General Family Practice 03/25/13 [address] [place] [address] documented as of this encounter
--- OUTSIDE RECORDS SUMMARY | 2022-02-22 13:41 | XMS_ITS | Encounter Summary ---
:1945 Author Organization [employer] Address [address] [place] [address] Care Team Providers Name Role Phone Unassigned, Provider Primary Care Provider Unavailable Reason for Visit Reason Comments PE Encounter Details Date Type Department Care Team Description 10/15/2012 Office Visit [facility] Kristine Brown MD Preventative health care (Primary Dx); Practice [address] [place] [address] Hypertension; [address] [place], [place] Screening; [place] [address] Foot pain [address] [phone] Social History Tobacco Use Types Packs/Day Years [...] presents with ??? PE Last seen at [facility] for RHM, last exam about one year ago. He is also seen Q 3 years at [place] for agent orange screening/exam, will be due [...] his BP's were still high on the qxpaywfdly-YGWL-xsbsym history of low potassium. 2. HM: never had a colonoscopy; not interested in colonoscopy or FIT testing. He thinks the last time he had PSA screening was 3 years ago-states that he has 'all his BW done when he's at the [place]. 3. H/o agent orange exposure: has screening [...] DIRECT LDL(IF NEEDED) (11/19/2012 8:47 AM CDT) [facility] Method Time Signature Hours Fasting [...] 11/19/2012 5:30 PM C DT Performed at [facility], [address] [place] [address] ??[address] Kristine Brown MD LAB_1 Performing Organization Address City/[facility] Phon e Number [facility] [phone] (ABNORMAL) CREATININE / GFR (11/19/2012 8:47 AM CDT) [facility] Method Time Signature Creatinine 1.23 0.66 [...] 11/19/2012 5:30 PM C DT Performed at [facility], [address] [place] [address] ??[address] Kristine Brown MD LAB_1 Performing Organization Address City/[facility] Phon e Number [facility] [phone] GLUCOSE - FASTING > 8 HRS FASTING (V77.1) (11/19/2012 8:47 AM CDT) P athologist Signature Hours Fasting 18 hours [facility] Glucose 100 70 - 100 [facility] mg[facility]dl [facility] Specimen Anatomical Collection Method Collection Time Receive d Time (Source) Location / / Volume Laterality 11/19/2012 8:47 AM 3 8:51 CDT AM CDT Narrative [facility] - 11/19/2012 5:30 PM C DT Performed at [facility], [address] [place] [address] ??[address] Kristine Brown MD LAB_1 Performing Organization Address [facility] Code Phon e Number [facility] [phone] POTASSIUM (11/19/2012 8:47 AM CDT) athologist Signature Potassium 4.3 3.5 - 5.3 [facility] mmol/L Specimen Anatomical Collection Method Collection Time Receive d Time (Source) Location / / Volume Laterality 11/19/2012 8:47 AM 3 8:51 CDT AM CDT Narrative [facility] - 11/19/2012 5:30 PM C DT Performed at [facility], [address] [place] [address] ??[address] Kristine Brown MD LAB_1 Performing Organization Address [facility] Phon e Number [facility] [phone] SODIUM (11/19/2012 8:47 AM CDT) athologist Signature Sodium 138 135 - 145 [facility] mmol/L Specimen Anatomical Collection Method Collection Time Receive d Time (Source) Location / / Volume Laterality 11/19/2012 8:47 AM 3 8:51 CDT AM CDT Narrative [facility] - 11/19/2012 5:30 PM C DT Performed at [facility], [address] [place] [address] ??[address] Kristine Brown MD LAB_1 Performing Organization Address [facility] Phon e Number [facility] [phone] MICROALB/CREAT RATIO (10/15/2012 10:53 AM CDT) [facility] Method Time Signature Albumin, <0.5 mg/dl [...] 10/15/2012 4:09 PM C DT Performed at [facility], [address] [place] [address] ??[address] Kristine Brown MD LAB_1 Performing Organization Address [facility] Phon e Number [facility] [phone] BASIC METABOLIC PANEL (10/15/2012 10:53 AM CDT) [...] PM C DT Performed at [facility] [employer] [facility], [address] [place] [address] ??[address] Kristine Brown MD LAB_1 Performing Organization Address City/[facility] Phon e Number [facility] [phone] documented in this encounter Visit Diagnoses Diagnosis Preventative health care - Primary Routine general medical examination at a health care facility Hypertension (HRC) Unspecified essential hypertension Screening Screening for unspecified condition Foot pain Pain in limb Hypertension (HRC) Unspecified essential hypertension Screening Screening for unspecified condition Hypertension (HRC) Unspecified essential hypertension documented in this encounter Care Teams Industrial Boilermaker Relationship Specialty Start Date End Date Unassigned, Provider PCP - General 01/26/00 03/24/[address] [place] [address] documented as of this encounter
--- OUTSIDE RECORDS SUMMARY | 2022-02-22 13:41 | XMS_ITS | Encounter Summary ---
:1945 Author Organization [facility] Address [address] [place] [address] Care Team Providers Name Role Phone Kristine Brown MD Primary Care Provider Reason for Referral Consult/Transfer Care (Routine) - Closed Specialty Diagnoses / Procedures Referred By Contact [place] [address] [place], [place] [address] Referral ID Status Reason Start Date Expiration Date Visits Requ ested Visits Authorized [id number] Closed 11/06/2015 02/04/2017 1 1 Scheduling Instructions Your provider has recommended an appoint ment with a [facility] nurse. A crisis nurse will contact you within the next 3 busin ess days to assist you in setting up this appointment. Reason for Visit Reason Comments FOLLOW-UP,BP MEDICATION CHECK Health Maintanence Declined Encounter Details Date Type Department Care Team Description 11/06/2015 Office Visit [facility] Kristine Brown MD Essential hypertension Practice [address] [place] [address] (Primary Dx) [address] [place] [address] [phone] Social History Tobacco Use Types Packs/Day Years [...] APPOINTMENT Referral Routine Ordered: 0 11/06/2015 ADULT/PEDS [TFA382] documented as of this encounter Visit Diagnoses Diagnosis Essential hypertension (HRC) - Primary Unspecified essential hypertension documented in this encounter Care Teams [employer]ials Relationship Specialty Start Date End Date Kristine Brown MD PCP - General Family Practice 03/25/13 [address] [place] [address] documented as of this encounter
--- OUTSIDE RECORDS SUMMARY | 2022-02-22 13:41 | XMS_ITS | Encounter Summary ---
:1945 Author Organization [facility] Address [address] [place] [address] Care Team Providers Name Role Phone Kristine Brown MD Primary Care Provider Reason for Visit Reason Comments Routine Eye Exam BRENNAN 04/01/14 Boysen, DVA and NVA more difficult especially having difficulty with intermediate distance, no glare or halos at night, no pain or discomfort Encounter Details Date Type Department Care Team Description 11/05/2015 Office Visit [facility] Carlos Hernandez S, Visit for eye and vision exa m (Primary Dx); [address] [place] Myopia, bilateral; [place], [place] [address] Regular astigmatism, bilater al; [phone] Presbyopia Social History Tobacco Use Types Packs/Day [...] 8:20 AM CDT [facility]. Many tests [...] the clinic in the future? Appointment Center: [phone] Eye Dept: [phone] Online Services: [email or web address] For after hours care, call the CareLine at [phone] or . We look forward to taking [...] Presbyopia documented in this encounter Care Teams Package Crimper Relationship Specialty Start Date End Date Kristine Brown MD PCP - General Family Practice 03/25/13 [address] [place] [address] documented as of this encounter
--- OUTSIDE RECORDS SUMMARY | 2022-02-22 13:41 | XMS_ITS | Encounter Summary ---
:1945 Author Organization [facility] Address [address] [place] [address] Care Team Providers Name Role Phone [place] Brown MD Primary Care Provider Reason for Visit Reason Comments Refill lisinopril (ZESTRIL) 40 MG t ablet [Pharmacy Med Name: LISINOPRIL 40MG TABS] Encounter Details Date Type Department Care Team Description 04/18/2016 Refill [facility] Phillip Brown MD Refill (lisinopril Practice [address] (ZESTRIL) 40 MG tablet [address] [place], [place] [Pharmacy Med Name: [place], [place] [address] LISINOPRIL 40MG TABS]) [phone] (Wo rk) Social History Tobacco Use Types [...] K: 5 mEq/L on 03/13/2015 Powered by [employer], Reference: [id number], 04/18/2016 9:00:24 AM TRIAL PARALEGAL, Pool: ABARCA RN ([id number]) L PARALEGAL Interface, Out [facility] Prov Query - 04/18/2016 9:00 AM CST The following lab order(s) may be associated with the following Patient Result Comment (Entered by Aby Gayle RN at 03/13/2015 4:04 PM): JUAN Ayers,Your test results are within normal range. Feel free to contact me if you have questions, by using the 'send a message' link at the top of the page.Phillip Brown, STEFAN/heidy L PARALEGAL Interface, Out [employer] Prov Query - 04/18/2016 [...] the top of the page.Phillip Brown, MDRF/gm L PARALEGAL documented in this encounter Plan of Treatment Not on filedocumented as of this encounter Visit Diagnoses Not on filedocumented in this encounter Care Teams Mucking Machine Operator Relationship Specialty Start Date End Date Phillip Brown MD PCP - General Family Practice 03/25/13 [address] [place] [address] documented as of this encounter
--- OUTSIDE RECORDS SUMMARY | 2022-02-22 13:41 | XMS_ITS | Encounter Summary ---
:1945 Author Organization [employer] Address [address] [place] [address] Care Team Providers Name Role Phone Kristine Brown MD Primary Care Provider Reason for Visit Reason Comments BP CHECK,NURSE Consult/Transfer Care (Routine) - Closed Specialty Diagnoses / Procedures Referred By Contact Refer red [place] [address] [place] [phone] Referral ID Status Reason Start Date Expiration Date Visits Requ ested Visits Authorized [id number] Closed 03/13/2015 06/11/2016 1 1 Encounter Details Date Type Department Care Team Description 04/20/2015 Nursing Visit [facility] Routin e adult health Department maintenance (Primary Dx) [address] [place] [address] Social History Tobacco Use Types [...] Comments Blood Pressure 132/81 04/20/2015 9:41 AM WHEELAGE CLERK Pulse 75 04/20/2015 9:41 AM WHEELAGE CLERK Temperature - - Respiratory Rate - - [...] encounter sent to PCP Radha Wallis LPN LAGE CLERK documented in this encounter Plan of Treatment Not on filedocumented as of this encounter Visit Diagnoses Diagnosis Routine adult health maintenance - Prima ry Routine general medical examination at a health care facility documented in this encounter Care Teams Shop And Alteration Tailor Relationship Specialty Start Date End Date Kristine Brown MD PCP - General Family Practice 03/25/13 [address] [place] [address] documented as of this encounter
--- OUTSIDE RECORDS SUMMARY | 2022-02-22 13:41 | XMS_ITS | Encounter Summary ---
:1945 Author Organization [employer] [facility] Address [address] [place] [address] Care Team Providers Name Role Phone Unassigned, Provider Primary Care Provider Unavailable Reason for Visit Reason Comments BLOOD PRESSURE CHECK Encounter Details Date Type Department Care Team Description 11/30/2012 [facility] Hy[facility] (Primary Practice [address] [facility] Dx) [address] [place] [address] [phone] Social History Tobacco Use Types Packs/Day Years [...] in this encounter Care Teams Vice President Of Instruction Relationship Specialty Start Date End Date Unassigned, Provider PCP - General 01/26/00 03/24/[address] [place] [address] documented as of this encounter
--- OUTSIDE RECORDS SUMMARY | 2022-02-22 13:41 | XMS_ITS | Encounter Summary ---
:1945 Author Organization [facility] Address [address] [place] [address] Care Team Providers Name Role Phone Kristine Brown MD Primary Care Provider Encounter Details Date Type Department Care Team Description 12/17/2014 Notes/Orders [facility] Nighat Nieto, Nuclear cataract, [address] [place] [address] [address] [facility] (Primary Dx) [phone] [id number] Social History Tobacco Use Types Packs/Day Years [...] Primary documented in this encounter Care Teams Oracle Database Manager Relationship Specialty Start Date End Date Kristine Brown MD PCP - General Family Practice 03/25/13 [address] [place] [address] documented as of this encounter
--- OUTSIDE RECORDS SUMMARY | 2022-02-22 13:41 | XMS_ITS | Encounter Summary ---
:1945 Author Organization [facility] Address [address] [place] [address] Care Team Providers Name Role Phone Kristine Brown MD Primary Care Provider Reason for Referral Consult/Transfer Care (Routine) - Closed Specialty Diagnoses / Procedures Referred By Contact [place] [address] [place], [place] [address] Referral ID Status Reason Start Date Expiration Date Visits Requ ested Visits Authorized [id number] Closed 02/16/2015 05/17/2016 1 1 Scheduling Instructions Your provider has [facility] A production planner scheduler will contact you within the next 3 busin ess days to assist you in setting up this appointment. Reason for Visit Reason Comments MEDICATION CHECK and lab f/u Health Maintanence Declined Encounter Details Date Type Department Care Team Description 02/16/2015 Office Visit [facility] Kristine Brown MD Essential hypertension (Primary Dx); Practice [address] [place] [address] [address] [place] [address] [phone] Social History Tobacco Use Types Packs/Day Years [...] taking medication on day he returns for [place] for repeat BP check. Sodium/potassium/creatinine from 01/30 within acceptable limits. 2. Impaired fasting glucose: BS of 115 from 01/30; lifestyle modifications reviewed. RTC for YUN/FBS in 6 months. Kristine Brown MD 02/16/2015, 12:31 PM documented in this encounter Plan of Treatment Scheduled Referrals Name Type Priority Associated Diagnoses Order [facility] NURSE APPOINTMENT Referral Routine Ordered: 1 ADULT/PEDS [[id number]] documented as of this encounter Visit Diagnoses Diagnosis Essential hypertension (HRC) - Primary Unspecified essential hypertension Prediabetes Other abnormal glucose documented in this encounter Care Teams Supervisor Bit And Shank Department Relationship Specialty Start Date End Date Kristine Brown MD PCP - General Family Practice 03/25/13 [address] [place] [address] documented as of this encounter
--- OUTSIDE RECORDS SUMMARY | 2022-02-22 13:41 | XMS_ITS | Encounter Summary ---
:1945 Author Organization [facility] Address [address] [place] [address] Care Team Providers Name Role Phone Kristine Brown MD Primary Care Provider Encounter Details Date Type Department Care Team Description 09/29/2009 Correspondence External to External, Provid er MED HX [place] [address] Social History Tobacco Use Types Packs/Day Years Used Date Smoking Tobacco: Never Assessed Sex Assigned at Date Recorded Not on file documented as of this encounter Progress Notes External, Provider - 09/29/2009 12:00 AM CDT LE DEVICE DEVELOPER documented in this encounter Plan of Treatment Not on filedocumented as of this encounter Visit Diagnoses Not on filedocumented in this encounter Care Teams Sprinkling System Installer Relationship Specialty Start Date End Date Kristine Brown MD PCP - General Family Practice 03/25/13 [address] [place] [address] documented as of this encounter
--- OUTSIDE RECORDS SUMMARY | 2022-02-22 13:41 | XMS_ITS | Encounter Summary ---
:1945 Author Organization [facility] Address [address] [place] [address] Care Team Providers Name Role Phone Kristine Brown MD Primary Care Provider Reason for Referral Consult/Transfer Care (Routine) - Closed Specialty Diagnoses / Procedures Referred By Contact [place] [address] [place], [place] [address] Referral ID Status Reason Start Date Expiration Date Visits Requ ested Visits Authorized [id number] Closed 03/13/2015 06/11/2016 1 1 Scheduling Instructions Your provider has recommended an appoint ment with a [facility] nurse. A radio installer will contact you within the next 3 busin ess days to assist you in setting up this appointment. ITY CONTROL CHEMIST Reason for Visit Reason Comments BP CHECK, Encounter Details Date Type Department Care Team Description 03/13/2015 Office Visit [facility] Kristine Brown MD Essential hypertension Practice [address] [facility] (Primary Dx) [address] [place] [address] [phone] Social History Tobacco Use Types Packs/Day Years [...] Comments Blood Pressure 151/97 03/13/2015 10:17 AM QUALITY CONTROL CHEMIST Pulse 62 03/13/2015 10:17 AM QUALITY CONTROL CHEMIST Temperature - - Respiratory Rate 16 03/13/2015 9:55 AM QUALITY CONTROL CHEMIST Oxygen Saturation - - Inhaled Oxygen Concentration [...] or chronic kidney disease, if you are -Senegalese, or if you are older than age [...] Where can you learn more? Go to [employer]TopChalks and enter H967 in the search box. Current as of: July 03, 2013 Content Version: 10.4 ?? [id number] FireEye. ITY CONTROL CHEMIST documented in this encounter Progress Notes Kristine [...] weeks. Kristine Brown MD 03/14/2015, 12:56 PM ITY CONTROL CHEMIST documented in this encounter Plan of Treatment Scheduled Referrals Name Type Priority Associated Diagnoses Order S [facility] NURSE APPOINTMENT Referral Routine Ordered: 1 05/13/2014 ADULT/PEDS [[id number]] documented as of this encounter Results CREATININE / GFR (03/13/2015 10:28 AM QUALITY CONTROL CHEMIST) Analysis Performed At Patho logist Time Signature Creatinine 1.10 0.66 - [facility] 1.25 mg/dl LAB[facility]ATORIES GFR, Estimated >60 >60 [facility] ml/min/1.7 LAB[facility]ATORIES 3m2 GFR, Est., If >60 >60 [facility] Black ml/min/1.7 LABORATORIES 3m2 Specimen Anatomical Collection Method Collection Time Receive d Time (Source) Location / / Volume Laterality 03/13/2015 10:28 03/13/2015 AM QUALITY CONTROL CHEMIST 10:29 AM QUALITY CONTROL CHEMIST Narrative [facility] - 03/13/2015 3:[address] Performed at [facility], [address] [place] [address] ??[phone] Kristine Brown MD LAB_1 Performing Organization Address City/[facility]/ZIP Code Phon e Number [facility] [phone] POTASSIUM (03/13/2015 10:28 AM QUALITY CONTROL CHEMIST) athologist Signature Potassium 5.0 3.5 - 5.3 [facility] mmol/L Specimen Anatomical Collection Method Collection Time Receive d Time (Source) Location / / Volume Laterality 03/13/2015 10:28 03/13/2015 AM QUALITY CONTROL CHEMIST 10:29 AM QUALITY CONTROL CHEMIST Narrative [facility] - 03/13/2015 3:[address] Performed at [facility], [address] [place] [address] ??[phone] Kristine Brown MD LAB_1 Performing Organization Address City/State/ZIP Code Phon e Number [facility] [phone] SODIUM (03/13/2015 10:28 AM QUALITY CONTROL CHEMIST) athologist Signature Sodium 142 135 - 145 [facility] mmol/L Specimen Anatomical Collection Method Collection Time Receive d Time (Source) Location / / Volume Laterality 03/13/2015 10:28 03/13/2015 AM QUALITY CONTROL CHEMIST 10:29 AM QUALITY CONTROL CHEMIST Narrative [facility] - 03/13/2015 3:[address] Performed at [facility], [address] ??[phone] Kristine Brown MD LAB_1 Performing Organization Address City/State/ZIP Code Phon e Number [facility] [phone] documented in this encounter Visit Diagnoses Diagnosis Essential hypertension (HRC) - Primary Unspecified essential hypertension Essential hypertension (HRC) Unspecified essential hypertension documented in this encounter Care Teams Splash Line Operator Relationship Specialty Start Date End Date Kristine Brown MD PCP - General Family Practice 03/25/13 [address] [place] [address] documented as of this encounter
--- OUTSIDE RECORDS SUMMARY | 2022-02-22 13:41 | XMS_ITS | Encounter Summary ---
:1945 Author Organization [facility] Address [address] [place] [address] Care Team Providers Name Role Phone Unassigned, Provider Primary Care Provider Unavailable Encounter Details Date Type Department Care Team Description 04/24/1989 PN Conversion Only BUSINESS AND SERVICES INSTRUCTOR [address] [place] [address] Social History Tobacco Use Types Packs/Day Years Used Date Smoking Tobacco: Never Assessed Sex Assigned at Date Recorded Not on file documented as of this encounter Plan of Treatment Not on filedocumented as of this encounter Visit Diagnoses Not on filedocumented in this encounter Care Teams Production Control Expediter Relationship Specialty Start Date End Date Unassigned, Provider PCP - General 01/26/00 03/24/[address] [place] [address] documented as of this encounter
--- OUTSIDE RECORDS SUMMARY | 2022-02-22 13:41 | XMS_ITS | Encounter Summary ---
:1945 Author Organization [facility] Address [address] [place] [address] Care Team Providers Name Role Phone Kristine Brown MD Primary Care Provider Reason for Referral Consult/Transfer Care (Routine) - Closed Specialty Diagnoses / Procedures Referred By Contact [place]er [place] [address] [place], [place] [address] Referral ID Status Reason Start Date Expiration Date Visits Requ ested Visits Authorized [id number] Closed 11/30/2015 02/28/2017 1 1 Scheduling Instructions Your provider has recommended an appoint ment with a [facility] nurse. A voice over announcer will contact you within the next 3 busin ess days to assist you in setting up this appointment. Reason for Visit Reason Comments MEDICATION CHECK sweating and ringing in ears since starting Amlodipine Encounter Details Date Type Department Care Team Description 11/30/2015 Office Visit [facility] Kristine Brown MD Essential hypertension Practice [address] [place] [address] (Primary Dx) [address] [place] [address] [phone] Social History Tobacco Use Types Packs/Day Years [...] APPOINTMENT Referral Routine Ordered: 0 11/30/2015 ADULT/PEDS [[id number]] documented as of this encounter Visit Diagnoses Diagnosis Essential hypertension (HRC) - Primary Unspecified essential hypertension documented in this encounter Care Teams Insurance Verification Rep Relationship Specialty Start Date End Date Kristine Brown MD PCP - General Family Practice 03/25/13 [address] [place] [address] documented as of this encounter
--- OUTSIDE RECORDS SUMMARY | 2022-02-22 13:41 | XMS_ITS | Encounter Summary ---
:1945 Author Organization [facility] Address [address] [place] [address] Care Team Providers Name Role Phone Kristine Brown MD Primary Care Provider Reason for Visit Reason Comments BP CHECKMD Encounter Details Date Type Department Care Team Description 04/09/2013 Office Visit [facility] Kristine Brown MD HTN (hypertension) Practice [address] [place] [address] (Primary Dx) [address] [place] [address] [phone] Social History Tobacco Use Types Packs/Day Years [...] Comments Blood Pressure 116/70 04/09/2013 10:25 AM REGISTERED PHYSICAL THERAPIST Pulse 81 04/09/2013 10:04 AM REGISTERED PHYSICAL THERAPIST Temperature - - Respiratory Rate 16 04/09/2013 10:04 AM REGISTERED PHYSICAL THERAPIST Oxygen Saturation - - Inhaled Oxygen Concentration [...] today's labs.Kristine Brown MD 04/10/2013, 8:03 PM STERED PHYSICAL THERAPIST documented in this encounter Plan of Treatment Not on filedocumented as of this encounter Visit Diagnoses Diagnosis HTN (hypertension) (HRC) - Primary Unspecified essential hypertension documented in this encounter Care Teams Director Funds Development Relationship Specialty Start Date End Date Kristine Brown MD PCP - General Family Practice 03/25/13 [address] [place] [address] documented as of this encounter
--- OUTSIDE RECORDS SUMMARY | 2022-02-22 13:41 | XMS_ITS | Encounter Summary ---
:1945 Author Organization [facility] Address [address] [place] [address] Care Team Providers Name Role Phone Unassigned, [...] Department Care Team Description 11/09/2011 Office Visit [facility] Shay Burt, SOTO Examination of eyes and vision (Primary Dx); [address] [facility]. [address] [address] [facility] [place], [place] [address] [place], [place] [phone] Social History Tobacco Use Types Packs/Day Years Used Date Smoking Tobacco: Never Assessed Sex Assigned at Date Recorded Not on file documented as of this encounter Patient Instructions Patient InstructionsShay Burt, OD - 11/09/2011 10:22 AM CDT Thank you for choosing [facility] for your eye care needs. Many tests [...] the clinic in the future? Appointment Center: [phone] Eye Dept: [phone] Online Services: [email or web address] For after hours care, call the CareLine at [phone] or . We look forward to taking [...] [facility] documented in this encounter Care Teams Steward/Stewardess Relationship Specialty Start Date End Date Unassigned, Provider PCP - General 01/26/00 03/24/13 [address] [place] [address] documented as of this encounter
--- OUTSIDE RECORDS SUMMARY | 2022-02-22 13:41 | XMS_ITS | Encounter Summary ---
:1945 Author Organization [facility] Address [address] [place] [address] Care Team Providers Name Role Phone Unassigned, Provider Primary Care Provider Unavailable Encounter Details Date Type Department Care Team Description 11/19/2012 Orders Only [facility] Screening; [address] [facility] Hypertension [place], [place] [address] Social History Tobacco Use [...] 5:30 PM C DT Performed at [facility], [address] [place] [address] ??[phone] Kristine Brown MD LAB_1 Performing Organization Address City/[facility] Phon e Number [facility] [phone] POTASSIUM (11/19/2012 8:47 AM CDT) athologist Signature Potassium 4.3 3.5 - 5.3 [facility] mmol/L Specimen Anatomical Collection Method Collection Time Receive d Time (Source) Location / / Volume Laterality 11/19/2012 8:47 AM 3 8:51 CDT AM CDT Narrative [facility] - 11/19/2012 5:30 PM C DT Performed at [facility], [address] [place] [address] ??[phone] Kristine Brown MD LAB_1 Performing Organization Address [facility] Phon e Number [facility] [phone] GLUCOSE - FASTING > 8 HRS FASTING (V77.1) (11/19/2012 8:47 AM CDT) athologist Signature Hours Fasting 18 hours [facility] Glucose 100 70 - 100 [facility] mg/dl [facility] Specimen Anatomical Collection Method Collection Time Receive d Time (Source) Location / / Volume Laterality 11/19/2012 8:47 AM 3 8:51 CDT AM CDT Narrative [facility] - 11/19/2012 5:30 PM C DT Performed at [facility], [address] [place] [address] ??[phone] Kristine Brown MD LAB_1 Performing Organization Address City/[facility] Phon e Number [facility] [phone] (ABNORMAL) CREATININE / GFR (11/19/2012 8:47 AM CDT) PathMy Hood Method Time Signature Creatinine 1.23 0.66 - [...] 5:30 PM C DT Performed at [facility], [address] [place] [address] ??[phone] Kristine Brown MD LAB_1 Performing Organization Address City/[facility] Phon e Number [facility] [phone] LIPID PANEL AND DIRECT LDL(IF NEEDED) (11/19/2012 8:47 AM CDT) [facility] Method Time Signature Hours Fasting 18 hours [...] 5:30 PM C DT Performed at [facility], [address] [place] [address] ??[phone] Kristine Brown MD LAB_1 Performing Organization Address City/[facility] Phon e Number [facility] [phone] documented in this encounter Visit Diagnoses Diagnosis Screening Screening for unspecified condition Hypertension (HRC) Unspecified essential hypertension documented in this encounter Care Teams Process Automation Engineer Relationship Specialty Start Date End Date Unassigned, Provider PCP - General 01/26/00 03/24/[address] [place] [address] documented as of this encounter
--- OUTSIDE RECORDS SUMMARY | 2022-02-22 13:41 | XMS_ITS | Encounter Summary ---
:1945 Author Organization [facility] Address [address] [place] [address] Care Team Providers Name Role Phone Kristine Brown MD Primary Care Provider Reason for Visit Reason Comments BLOOD PRESSURE CHECK Encounter Details Date Type Department Care Team Description 02/27/2015 Telephone [facility] Kristine Brown MD BLOOD PRESSURE CHECK Practice [id number] [place] [address] [place], [place] [address] [phone] (Wo rk) Social History Tobacco Use Types [...] with plan of care. Belia Hoff LP EAR FUEL PROCESSING TECHNICIAN documented in this encounter Plan of Treatment Not on filedocumented as of this encounter Visit Diagnoses Not on filedocumented in this encounter Care Teams Game Moderator Relationship Specialty Start Date End Date Kristine Brown MD PCP - General Family Practice 03/25/13 [address] [place] [address] documented as of this encounter
--- OUTSIDE RECORDS SUMMARY | 2022-02-22 13:41 | XMS_ITS | Encounter Summary ---
:1945 Author Organization [facility] Address [address] [place] [address] Care Team Providers Name Role Phone Unassigned, Provider Primary Care Provider Unavailable Reason for Referral Consult/Transfer Care (Routine) - Closed Specialty Diagnoses / Procedures Referred By Contact Refer red To Contact Lucia Quinonez PA -C [address] [facility] [address] [place] [address] Referral ID Status Reason Start Date Expiration Date Visits Requ ested Visits Authorized [id number] Closed 2012 1 1 Scheduling Instructions Your provider has recommended an appoint ment with [facility]. You may call [phone] to schedule your appoi ntment. If you prefer, a basket hand braider will contact you within the next 3 business d ays to assist you in setting up this appointment. Reason for Visit Reason Onset Date Comments RESULTS, TEST 2012 Encounter Details Date Type Department Care Team Description 2012 Telephone Special[facility] 401 Lucia Quinonez PA-C RESULTS, TEST Surgery Clinic [address] [facility] [address] Diogenes [address] [place] [address] [place] [address] [phone] (Wo rk) Social History Tobacco Use Types [...] to get full body skin check with Bureau Director. He will call and schedule and i'll put the orders in. Lucia Quinonez PA-C documented in this encounter Plan of Treatment Scheduled Referrals Name Type Priority Associated Diagnoses Order S [facility] Referral Routine Ordered: 2011 CONSULT-ADULT/PEDS documented as of this encounter Visit Diagnoses Not on filedocumented in this encounter Care Teams Cad Technician Relationship Specialty Start Date End Date Unassigned, Provider PCP - General 01/26/00 03/24/[address] [place] [address] documented as of this encounter
--- OUTSIDE RECORDS SUMMARY | 2022-02-22 13:41 | XMS_ITS | Encounter Summary ---
:1945 Author Organization [facility] Address [address] [place] [address] Care Team Providers Name Role Phone Kristine Brown MD Primary Care Provider Encounter Details Date Type Department Care Team Description 03/13/2015 Orders Only [facility] Essential hypertension [address] [place], [place] [address] Social History Tobacco Use [...] AM Essential hyperte nsion Results for this FIELD MARKETING REPRESENTATIVE procedure are i n the results section. SODIUM Routine 03/13/2015 10:28 AM Essential hypertensio n Results for this FIELD MARKETING REPRESENTATIVE procedure are i n the results section. POTASSIUM Routine 03/13/2015 10:28 AM Essential hypertensio n Results for this FIELD MARKETING REPRESENTATIVE procedure are i n the results section. documented in this encounter Results CREATININE / GFR (03/13/2015 10:28 AM FIELD MARKETING REPRESENTATIVE) [facility] Time Signature Creatinine 1.10 0.66 - [facility] 1.25 mg/dl LAB[facility]ATORIES GFR, Estimated >60 >60 [facility] ml/min/1.7 [facility]ATOR[facility] 3m2 GFR, Est., If >60 >60 [facility] Black ml/min/1.7 LAB[facility]ATORIES 3m2 Specimen Anatomical Collection Method Collection Time Receive d Time (Source) Location / / Volume Laterality 03/13/2015 10:28 03/13/2015 AM FIELD MARKETING REPRESENTATIVE 10:29 AM FIELD MARKETING REPRESENTATIVE Narrative [facility] - 03/13/2015 3:[address] Performed at [facility], [address] [place] [address] ??[phone] Kristine Brown MD LAB_1 Performing Organization Address City/State/[facility] Code Phon e Number [facility] [phone] POTASSIUM (03/13/2015 10:28 AM FIELD MARKETING REPRESENTATIVE) athologist Signature Potassium 5.0 3.5 - 5.3 [facility] mmol/L Specimen Anatomical Collection Method Collection Time Receive d Time (Source) Location / / Volume Laterality 03/13/2015 10:28 03/13/2015 AM FIELD MARKETING REPRESENTATIVE 10:29 AM FIELD MARKETING REPRESENTATIVE Narrative [facility] - 03/13/2015 3:[address] Performed at [facility], [address] [place] [address] ??[phone] Kristine Brown MD LAB_1 Performing Organization Address City/State/ZIP Code Phon e Number [facility] [phone] SODIUM (03/13/2015 10:28 AM FIELD MARKETING REPRESENTATIVE) athologist Signature Sodium 142 135 - 145 [facility] mmol/L Specimen Anatomical Collection Method Collection Time Receive d Time (Source) Location / / Volume Laterality 03/13/2015 10:28 03/13/2015 AM FIELD MARKETING REPRESENTATIVE 10:29 AM FIELD MARKETING REPRESENTATIVE Narrative [facility] - 03/13/2015 3:[address] Performed at [email or web address], [address] [place] [address] ??[phone] Kristine Brown MD LAB_1 Performing Organization Address City/State/[facility] Phon e Number [facility] [phone] documented in this encounter Visit Diagnoses Diagnosis Essential hypertension (HRC) Unspecified essential hypertension documented in this encounter Care Teams Perfume Compounder Relationship Specialty Start Date End Date Kristine Brown MD PCP - General Family Practice 03/25/13 [address] [place] [address] documented as of this encounter
--- OUTSIDE RECORDS SUMMARY | 2022-02-22 13:41 | XMS_ITS | Encounter Summary ---
:1945 Author Organization [employer] Address [address] [place] [address] Care Team Providers Name Role Phone Kristine Brown MD Primary Care Provider Encounter Details Date Type Department Care Team Description 04/09/2013 Orders Only [facility] HTN (hypertension) [address] [place], [place] [address] Social History Tobacco Use [...] AM HTN (hypertension) Results for this PANEL ONCOLOGY ADMIN procedure are i n the results section. documented in this encounter Results (ABNORMAL) BASIC METABOLIC PANEL (04/09/2013 10:32 AM ONCOLOGY ADMIN) [facility] Method Time Signature BUN 16 7 [...] / Volume Laterality 04/09/2013 10:32 04/09/2013 AM ONCOLOGY ADMIN 10:33 AM ONCOLOGY ADMIN Narrative [facility] - 04/09/2013 3:[address] Performed at [facility], [address] [place] [address] ??[phone] Kristine Brown MD LAB_1 Performing Organization Address City/State/ZIP Code Phon e Number [facility] [phone] documented in this encounter Visit Diagnoses Diagnosis HTN (hypertension) (HRC) Unspecified essential hypertension documented in this encounter Care Teams Hand Collator Relationship Specialty Start Date End Date Kristine Brown MD PCP - General Family Practice 03/25/13 [address] [place] [address] documented as of this encounter
--- OUTSIDE RECORDS SUMMARY | 2022-02-22 13:41 | XMS_ITS | Encounter Summary ---
:1945 Author Organization [employer] [place] Address [address] [place] [address] Care Team Providers Name Role Phone Kristine Brown MD Primary Care Provider Encounter Details Date Type Department Care Team Description 01/30/2015 Orders Only [facility] Essential hypertension; [address] [facility] Screening for deficiency ane hayden; [place], [place] [address] Screening PSA (prostate spec ific antigen) [phone] Social History Tobacco Use Types Packs/Day Years [...] - 01/30/2015 12:26 PM CDT Performed at [facility], [address] [place] [address] ??[phone] Kristine Brown MD LAB_1 Performing Organization Address [facility] Phon e Number [facility] [phone] MICROALB/CREAT RATIO (01/30/2015 7:35 AM CDT) [facility] Method Time Signature Albumin, <0.5 mg/dl [...] 01/30/2015 2:36 PM C DT Performed at [facility], [address] [place] [address] ??[id number] Kristine Brown MD LAB_1 Performing Organization Address City/[facility]/ZIP [facility] Phon e Number [facility] [phone] (ABNORMAL) HEMOGRAM/PLTS/DIFF (01/30/2015 7:35 AM CDT) [facility] Method Time Signature WBC 4.6 4.0 [...] [facility] Lymph 26 % [facility] [place] 12 % [facility] Eos 5 % [facility] Baso 0 % [facility] Neutrophil 2.6 1.8 - 7.7 [facility] k[facility]ul [facility] Lymph Absolute 1.2 1.0 - 4.8 [facility]ul [facility] [place] Absolute 0.5 0.1 - 0.7 [facility] k/ul [...] - 01/30/2015 11:58 AM CDT Performed at [facility], [address] [place] [address] ??[phone] Kristine Brown MD LAB_1 Performing Organization Address City/State/ZIP Code Phon e Number [facility] [phone] (ABNORMAL) BASIC METABOLIC PANEL,FASTING (01/30/2015 7:35 AM CDT) [facility] Method Time Signature Sodium 142 135 [...] - 01/30/2015 12:26 PM CDT Performed at [facility], [address] [place] [address] ??[address] Kristine Brown MD LAB_1 Performing Organization Address City/[facility] Phon e Number [facility] [phone] LIPID PANEL AND DIRECT LDL(IF NEEDED) (01/30/2015 7:35 AM CDT) [facility] Method Time Signature Hours Fasting 12 [...] - 01/30/2015 12:26 PM CDT Performed at [facility], [address] [place] [address] ??[address] Kristine Brown MD LAB_1 Performing Organization Address City/[facility] Phon e Number [facility] [phone] documented in this encounter Visit Diagnoses Diagnosis Essential hypertension (HRC) Unspecified essential hypertension Screening for deficiency anemia Screening for other and unspecified defi ciency anemia Screening PSA (prostate specific antigen ) Special screening for malignant neoplasm of prostate documented in this encounter Care Teams Embroidery Worker Relationship Specialty Start Date End Date Kristine Brown MD PCP - General Family Practice 03/25/13 [address] [place] [address] documented as of this encounter
--- OUTSIDE RECORDS SUMMARY | 2022-02-22 13:41 | XMS_ITS | Encounter Summary ---
:1945 Author Organization [employer] Address [address] [place] [address] Care Team Providers Name Role Phone Kristine Brown MD Primary Care Provider Reason for Visit Reason Comments BLOOD PRESSURE CHECK Consult/Transfer Care (Routine) - Closed Specialty Diagnoses / Procedures Referred By Contact Refer red [place] [address] [place] [phone] Referral ID Status Reason Start Date Expiration Date Visits Requ ested Visits Authorized [id number] Closed 02/16/2015 05/17/2016 1 1 Encounter Details Date Type Department Care Team Description 02/27/2015 Nursing Visit [facility] Brett pearson hypertension Department (Primary Dx) [address] [place] [address] 24 Social History Tobacco Use Types Packs/Day [...] Comments Blood Pressure 165/102 02/27/2015 8:29 AM MANUFACTURING TECHNOLOGY PROFESSOR Pulse 67 02/27/2015 8:29 AM MANUFACTURING TECHNOLOGY PROFESSOR Temperature - - Respiratory Rate 16 02/27/2015 8:19 AM MANUFACTURING TECHNOLOGY PROFESSOR Oxygen Saturation - - Inhaled Oxygen Concentration [...] Brown. Appointment scheduled 03/13/15 Belia Hoff LPN FACTURING TECHNOLOGY PROFESSOR documented in this encounter Plan of Treatment Not on filedocumented as of this encounter Visit Diagnoses Diagnosis Essential hypertension (HRC) - Primary Unspecified essential hypertension documented in this encounter Care Teams Adjunct Professor Relationship Specialty Start Date End Date Kristine Brown MD PCP - General Family Practice 03/25/13 [address] [place] [address] documented as of this encounter
--- OUTSIDE RECORDS SUMMARY | 2022-02-22 13:41 | XMS_ITS | Encounter Summary ---
:1945 Author Organization [employer] Address [address] [place] [address] Care Team Providers Name Role Phone Kristine Brown MD Primary Care Provider Reason for Referral Consult/Transfer Care (Routine) - Closed Specialty Diagnoses / Procedures Referred By Contact [place] [address] [place], [place] [address] Referral ID Status Reason Start Date Expiration Date Visits Requ ested Visits Authorized [id number] Closed 01/16/2015 04/16/2016 1 1 Scheduling Instructions [...] Department Care Team Description 01/16/2015 Office Visit [facility] Kristine Brown MD Encounter for routine adult health exami nation without abnormal findings (Primary Dx); Practice [address] [facility] Essential hypertension; [address] [place], [place] Screening for deficiency ane hayden; [place] [address] History of basal cell cancer; [address] Screening PSA (prostate spec ific antigen) Social [...] is also seen Q 1 year at [place] for agent orange screening/exam, will be due [...] Name Type Priority Associated Diagnoses [facility] Referral Routine Ordered: 2014 CONSULT-ADULT/PEDS [...] - 01/30/2015 12:26 PM CDT Performed at [facility], [address] [place] [address] ??[phone] Kristine Brown MD LAB_1 Performing Organization Address City/State/ZIP Code Phon e Number [facility] [phone] MICROALB/CREAT RATIO (01/30/2015 7:35 AM CDT) [facility] gist Method Time Signature Albumin, <0.5 [...] 01/30/2015 2:36 PM C DT Performed at [facility], [address] [place] [address] ??[phone] Kristine Brown MD LAB_1 Performing Organization Address City/State/ZIP Code Phon e Number [facility] [phone] (ABNORMAL) HEMOGRAM/PLTS/DIFF (01/30/2015 7:35 AM CDT) [facility] Method Time Signature WBC 4.6 [...] [facility] Lymph 26 % [facility] [place] 12 % [facility] Eos 5 % [facility] Baso 0 % [facility] Neutrophil 2.6 1.8 - 7.7 [facility] Lymph Absolute 1.2 1.0 - 4.8 [facility] [place] Absolute 0.5 0.1 - 0.7 [facility] k/ul [...] - 01/30/2015 11:58 AM CDT Performed at [facility], [address] [place] [address] ??[id number] Kristine Brown MD LAB_1 Performing Organization Address City/State/ZIP Code Phon e Number [facility] [phone] (ABNORMAL) BASIC METABOLIC PANEL,FASTING (01/30/2015 7:35 AM CDT) [facility] [employer] Method Time Signature Sodium 142 135 - [...] - 01/30/2015 12:26 PM CDT Performed at [facility], [address] [place] [address] ??[address] Kristine Brown MD LAB_1 Performing Organization Address City/[facility]/ZIP Code Phon e Number [facility] [phone] LIPID PANEL AND DIRECT LDL(IF NEEDED) (01/30/2015 7:35 AM CDT) [facility] [employer] Method Time Signature Hours Fasting 12 hours [...] - 01/30/2015 12:26 PM CDT Performed at [facility], [address] ??[phone] Kristine Brown MD LAB_1 Performing Organization Address City/State/ZIP Code Phon e Number [facility] [phone] documented in this encounter Visit Diagnoses Diagnosis [...] prostate documented in this encounter Care Teams Pouch Maker Relationship Specialty Start Date End Date Kristine Brown MD PCP - General Family Practice 03/25/13 [address] [place] [address] documented as of this encounter
--- OUTSIDE RECORDS SUMMARY | 2022-02-22 13:41 | XMS_ITS | Encounter Summary ---
:1945 Author Organization [facility] Address [address] [place] [address] Care Team Providers Name Role Phone Unassigned, Provider Primary Care Provider Unavailable Reason for Referral Consult/Transfer Care (Routine) - Closed Specialty Diagnoses / Procedures Referred By Contact [place] [address] [place], [place] [address] Referral ID Status Reason Start Date Expiration Date Visits Requ ested Visits Authorized [id number] Closed 01/18/2012 1 1 Scheduling Instructions Your provider has recommended an appoint ment with [facility] Surgery Department. You may call [phone] to schedule yo ur appointment. If you prefer, a mill order scheduler will contact you within the next 3 busin ess days to assist you in setting up this appointment. Reason for Visit Reason Comments Sore BACK Health Maintanence Declined FLU VACCINE Encounter Details Date Type Department Care Team Description 01/18/2012 Office Visit [facility] Chanelle Khan Skin lesion (Primary Practice MD Wild Dx) [address] [facility] [address] [place] [address] [phone] Social History Tobacco Use Types Packs/Day Years [...] his left upper back. He served in [employer] He returned in 1968. He had a [...] tissue documented in this encounter Care Teams Ap Processor Relationship Specialty Start Date End Date Unassigned, Provider PCP - General 01/26/00 03/24/[address] [place] [address] documented as of this encounter
--- OUTSIDE RECORDS SUMMARY | 2022-02-22 13:41 | XMS_ITS | Encounter Summary ---
:1945 Author Organization [employer] Address [address] [place] [address] Care Team Providers Name Role Phone Kristine Brown MD Primary Care Provider Reason for Visit Reason Comments BP CHECK,NURSE Encounter Details Date Type Department Care Team Description 11/30/2015 Nursing Visit [facility] Brett pearson hypertension Department (Primary Dx) [address] [place] [address] Social History Tobacco Use Types [...] hypertension documented in this encounter Care Teams Restaurant Service Manager Relationship Specialty Start Date End Date Kristine Brown MD PCP - General Family Practice 03/25/13 [address] [place] [address] documented as of this encounter
--- OUTSIDE RECORDS SUMMARY | 2022-02-22 13:42 | XMS_ITS | Clinical Summary ---
:1945 Author Organization [employer] [place] [address] Care Team Providers Name Role Phone Miguel [...] Comments Blood Pressure 135/85 06/02/2021 11:51 AM SUPERINTENDENT DRIVERS Pulse 84 06/02/2021 11:51 AM SUPERINTENDENT DRIVERS Temperature - - Respiratory Rate - - Oxygen Saturation 95% 06/02/2021 11:48 AM SUPERINTENDENT DRIVERS Inhaled Oxygen Concentration - - Weight 112.9 kg (249 lb) 06/02/2021 11:48 AM SUPERINTENDENT DRIVERS with s destinee Height - - Body [...] Organization Address City/State/ZIP Code Phon e Number [facility] [address] [place] [address] LABORATORY-CENTRAL 1999 LABORATORY PATH TISSUE EXAM (02/08/2022 9:45 AM CDT) Component Value Ref Test Analysis Performed Pathologis t Range Method Time At Signature Case Report Pathology Report ?Case: [id number] ? [place] Authorizing Provider: ??Joya Bustos MD [...] HEALTH Please contact us with any questions ([facility] [phone]). CDT LABORATORY- CENTRAL Formalin-fixed, paraffin-emb edded tissue is available for ancillary studies, to request please contact the [facility] ([phone]). Neoplastic tissue available for ancillary studies: FFPE [...] is strongly suspected clinically please contact us ([facility] Pathology Service [phone]). Rarely there can be a functionally significant mutation that leaves the protein intact or other heritable reasons for this finding. Clinical Mr. Crump is a 77 [facility] Information y.o. with a positive 2 [...] SYNOPTIC Colon and Rectum Biomarker Reporting Template [facility] REPORTING Colon.Bmk - D 2 3:44 [...] MMR proteins: low probability of MSI-H Additional [facility] Information Interpreted at [facility], Central Laboratory - [address], [place] [address] 2 3:44 PM HEALTH CDT LABORATORY- CENTRAL [...] Organization Address City/State/ZIP Code Phon e Number [facility] [address] [place] [address] LABORATORY-CENTRAL 2000 LABORATORY from Last 3 Months Insurance Payer Benefit Plan / Subscriber ID Effective Dates Phone Addre ss Type [facility] [employer] MEDICARE [id number] 2018-Present [address] [place] [address] Care Teams Equipment Installation Professional Relationship Specialty Start Date End Date Miguel Dowling MD PCP - General Family Practice 01/21/[address] [place] [address]
--- OUTSIDE RECORDS SUMMARY | 2022-02-22 13:42 | XMS_ITS | Continuity of Care Document ---
:1945 Author Organization [facility] Care Team Providers Name Role Phone [facility] Unavailable Unavailable Problems Combined list of problems [...] Nose. Benign essential Active Condition [place] hypertension HCS (SNOMED CT 9842182) Elevated PSA Active Condition [place] [facility] Erythrocytosis Active [place] [facility] Gout [place] [facility] H/O: vasectomy Active [place] [facility] Health Maintenance Active [place] (ICD-9-CM V65.9) HCS History of Active [place] tonsillectomy [facility] Hyperlipidemia Active [place] [facility] Obstructive sleep [place] apnea of adult [facility] Diagnosis: [facility] [place] ICD-10-CM I10 [facility]CS Essential (primary) hypertensionwith Provider Comments: Benign essential hypertension (SCT 2704478) Diagnosis: Active Diagnosis [facility] [place] ICD-10-CM C44.41 HCS Basal cell carcinoma of skin of scalp and neckwith Provider Comments: Basal cell carcinoma of skin of scalp and neck Diagnosis: Active Diagnosis [facility] [place] ICD-10-CM Z71.89 HCS Other specified counselingwith Provider Comments: Other specified Counseling Diagnosis: Active Diagnosis [facility] [place] ICD-10-CM Z85.828 HC S Personal history of [...] ASPIRIN TAKE ONE ORALLY ACTIVE TATYANA,MAY 05/ [place] 325MG TAB TABLET ICE L 2009 [place] BY MOUTH HCS EVERY DAY KETOCONAZOL SHAMPOO TOPICA 11/28/2021 [id number] A MON,GABR 11/29/ [place] E 2% SCALP, [...] MOUTH PRN SILDENAFIL TAKE ONE ORALLY 05/21/2021 [id number] B ATY,GABR 05/20/ [place] CITRATE TABLET 1 [...] atus Comments Source Given By Number Code Petroleum Sampler COVID-19 2 complet PFR; [place] (PFIZER), 2020 ed [id number]; [place] MRNA, LNP-S, 02 HCS PF, 30 1 MCG/0.3 ML DOSE COVID-19 1 complet PFR; [place] (PFIZER), 2020 ed [id number]; [place] MRNA, LNP-S, 02 HCS PF, 30 1 MCG/0.3 ML DOSE PNEUMOCOCCAL complet merc k and [place] POLYSACCHARID 2018 ed co,R01 790 [facility] P[facility] 0,[id number] HC S 20 TDAP complet sanofi [place] 2018 ed pastuer [place] A XJ5L2,10/ HCS / PNEUMOCOCCAL complet W[facility] [place] CONJUGATE PCV 2016 ed PHARM, M79 [place] 13 321,12/08 HCS ZOSTER LIVE complet MERCK and [place] 2016 ed CO,[id number] [place] 1,[id number] HCS 16 Results Combined list of recent chemistry, hematology and other laboratory results from Department of Defense and Veterans Affairs, ranging from 15 months to all on record, depending upon the facility. Order Results Value Reference Date Interpretation Specimen Commen ts Source Name Range ALT/SGPT ALANINE 22 <55 - 55 01/11 Specimen Type: PLASMA [place] AMINOTRANS No comment e ntered. IS [facility] ERASE Ordering Provid er: ADAM MORAN [ENZYMATIC Report Relelaly sed Date/Time: May 29, 2020 05:02 AM ACTIVITY/VO Reporting L ab: [facility] LUME] IN [address] [facility] [address] SERUM OR Performing Lab : [facility] PLASMA ONE [facility] [place]NOTE 2] [address] [facility] [address] CREATININ CREATININE 1.0 0.7 - 1.2 01/11 Specimen Type: PLASMA [place] E(INCLUDE [MASS/VOLUM No comment entered. IS [facility] S EGFR) E] IN SERUM Ordering Pr ovider: LUISA,ADAM E OR PLASMA Report Releas ed Date/Time: May 29, 2020 05:02 AM Reporting Lab: [facility] [address] [facility] [address] Performing Lab: [facility] [address] [place] [address] CREATININ GLOMERULAR 79 60 01/11 Specimen Ty pe: PLASMA [place] E(INCLUDE FILTRATION /2021 No comment entered. IS [facility] S EGFR) RATE/1.73 Ordering Prov ider: ADAM MORAN SQ Report Released Date/Time: May 29, 2020 05:02 AM M.PREDICTED Reporting L ab: [facility] [VOLUME [place] [address] RATE/AREA] Performing L ab: [facility] IN SERUM, [address] [facility] [address] PLASMA OR BLOOD BY CREATININE- BASED FORMULA (CKD-EPI) CBC LEUKOCYTES 5.01 4.0 - 11.0 01/11 Specimen T ype: BLOOD [place] [#/VOLUME] /2021 No comment en tered. [place] [facility] IN [place]LOOD BY Ordering Pr ovider: ADAM MORAN AUTOMATED Report Releas ed Date/Time: May 29, 2020 05:02 AM COUNT Reporting Lab: [facility] [place] [address] Performing Lab: [facility] [place] [address] CBC ERYTHROCYTE 6.38 4.6 - 6.2 01/11 H Specimen T ype: BLOOD [place] S /2021 No comment enter ed. [place] H[place] [#/VOLUME] Ordering Pro vider: ADAM MORAN IN BLOOD BY Report Rele ased Date/Time: May 29, 2020 05:02 AM AUTOMATED Reporting Lab : [facility] COUNT [address] [facility] [address] Performing Lab: [facility] [address] [facility] [address] CBC HEMOGLOBIN 19.1 13.5 - 01/11 H Specimen Type : BLOOD [place] [MASS/VOLUM 17.9 /2021 No comment e ntered. IS [place] [facility] E] IN BLOOD Ordering Pr ovider: ADAM MORAN Report Released Date/Time: May 29, 2020 05:02 AM Reporting Lab: [facility] [place] [address] Performing Lab: [facility] [address] [facility] [address] CBC HEMATOCRIT 56.0 41 - 54 01/11 H Specimen Type : BLOOD [place] [VOLUME /2021 No comment enter ed. [facility] FRACTION] Ordering Prov ider: ADAM MORAN OF BLOOD BY Report Rele ased Date/Time: May 29, 2020 05:02 AM AUTOMATED Reporting Lab : [facility] COUNT [address] [facility] [address] Performing Lab: [facility] [address] [facility] [address] CBC MCV 87.8 80 - 100 01/11 Specimen Type: BLOOD [place] [ENTITIC /2021 No comment ente red. [facility] VOLUME] BY Ordering Pro vider: ADAM MORAN AUTOMATED Report Releas ed Date/Time: May 29, 2020 05:02 AM COUNT Reporting Lab: [facility] [address] [facility] [address] Performing Lab: [facility] [address] [facility] [address] CBC MCH 29.9 27 - 33 01/11 Specimen Type: B LOOD [place] [ENTITIC /2021 No comment ente red. [facility] MASS] BY Ordering Provi johnny: ADAM MORAN AUTOMATED Report Releas ed Date/Time: May 29, 2020 05:02 AM COUNT Reporting Lab: [facility] [address] [facility] [address] Performing Lab: [facility] [address] [facility] [address] CBC MCHC 34.1 32.0 - 01/11 Specimen Type: B LOOD [place] [MASS/VOLUM 37.5 /2021 No comment e ntered. IS [facility] E] BY Ordering Provid er: ADAM MORAN AUTOMATED Report Releas ed Date/Time: May 29, 2020 05:02 AM COUNT Reporting Lab: [facility] [address] [facility] [address] Performing Lab: [facility] [address] [place] [facility] [address] CBC PLATELETS 202 150 - 400 01/11 Specimen Typ e: BLOOD [place] [#/VOLUME] /2021 No comment en tered. [facility] IN [facility]LOOD BY Ordering Pr ovider: LUISA,ADAM E AUTOMATED Report Releas ed Date/Time: May 29, 2020 05:02 AM COUNT Reporting Lab: [facility] [address] [place] [address] Performing Lab: [facility] [address] [place] [address] CBC PLATELET 8.9 7.4 - 10.4 01/11 Specimen Typ e: BLOOD [place] MEAN VOLUME /2021 No comment e ntered. IS [facility] [ENTITIC Ordering Provi johnny: ADAM MORAN VOLUME] IN Report Relea sed Date/Time: May 29, 2020 05:02 AM BLOOD BY Reporting Lab: [facility] AUTOMATED [address] [facility] [address] COUNT Performing Lab: [facility] [address] [place] [address] CBC ERYTHROCYTE 14.4 11.5 - 01/11 Specimen Typ e: BLOOD [place] DISTRIBUTIO 14. No comment e ntered. IS [facility] N WIDTH Ordering Provid er: ADAM MORAN [RATIO] BY Report Relea sed Date/Time: May 29, 2020 05:02 AM AUTOMATED Reporting Lab : [facility] COUNT [place] [address] Performing Lab: [facility] [address] [facility] [address] LIPID CHOLESTEROL 168 <199 - 199 01/11 Specimen Type: PLASMA [place] PANEL,NON [MASS/VOLUM /2021 No comment entered. IS [facility] E] IN SERUM Ordering P rovider: ADAM MORAN E OR PLASMA Report Releas ed Date/Time: May 29, 2020 05:02 AM Reporting Lab: [facility] [address] [place] [address] Performing Lab: [facility] [address] [place] [address] LIPID CHOLESTEROL 39 40 01/11 L Specimen Typ e: PLASMA [place] PANEL,NON IN HDL /2021 No comment ent ered. IS [facility] [MASS/VOLUM Ordering P rovider: ADAM MORAN E E] IN SERUM Report Rele ased Date/Time: May 29, 2020 05:02 AM OR PLASMA Reporting Lab : [facility] [address] [place] [address] Performing Lab: [facility] [place] [address] LIPID CHOLESTEROL 98 <99 - 99 01/11 Specimen Ty pe: PLASMA [place] PANEL,NON IN LDL /2021 No comment ent ered. IS [facility] [MASS/VOLUM Ordering P rovider: ADAM MORAN] IN SERUM Report Rele ased Date/Time: May 29, 2020 05:02 AM OR PLASMA Reporting Lab : [facility] BY [place] [address] CALCULATION Performing Lab: [facility] [address] [place] [address] LIPID CHOLESTEROL 31 <29 - 29 20 H Specimen Ty pe: PLASMA [place] PANEL,NON IN VLDL /2021 No comment ent ered. IS [facility] [MASS/VOLUM Ordering P rovider: ADAM MORAN] IN SERUM Report Rele ased Date/Time: May 29, 2020 05:02 AM OR PLASMA Reporting Lab : [facility] BY [place] [address] CALCULATION Performing Lab: [facility] [place] [address] LIPID CHOLESTEROL 129 <129 - 129 01/11 Specimen Type: PLASMA [place] PANEL,NON NON HDL /2021 No comment ent ered. IS [facility] [MASS/VOLUM Ordering P rovider: ADAM MORAN] IN SERUM Report Rele ased Date/Time: May 29, 2020 05:02 AM OR PLASMA Reporting Lab : [facility] [place] [address] Performing Lab: [facility] ONE [facility] [place]NOTE 2] [place] [address] LIPID TRIGLYCERID 157 <149 - 149 01/11 H Specimen Type: PLASMA [place] PANEL,NON E /2021 No comment ent ered. IS [facility] [MASS/VOLUM Ordering P rovider: ADAM MORAN] IN SERUM Report Rele ased Date/Time: May 29, 2020 05:02 AM OR PLASMA Reporting Lab : [facility] [place] [address] Performing Lab: [facility] [place] [address] PSA PROSTATE 6.43 <4.00 - 0920 H Specimen Type: SERUM [place] SPECIFIC AG 4.00 No comment e ntered. IS [facility] [MASS/VOLUM Ordering Pr ovider: ADAM MORAN] IN SERUM Report Rele ased Date/Time: May 29, 2020 05:02 AM OR PLASMA Reporting Lab : [facility] [place] [address] Performing Lab: [facility] ONE [facility] [place] 2[facility] [address] [place] [address] ELECTROLY SODIUM 140 136 - 145 01/11 Specimen Typ e: PLASMA [place] AMY/ANION [MOLES/VOLU /2021 No comment entered. IS [facility] GAP ME] IN Ordering Provid er: ADAM MORAN SERUM OR Report Release d Date/Time: May 29, 2020 05:02 AM PLASMA Reporting Lab: [facility] ONE [facility] [place] [address] [facility] [address] Performing Lab: [facility] [place] [address] ELECTROLY POTASSIUM 4.3 3.5 - 5.1 01/11 Specimen T ype: PLASMA [place] AMY/ANION [MOLES/VOLU /2021 No comment entered. IS [facility] GAP ME] IN Ordering Provid er: ADAM MORAN SERUM OR Report Release d Date/Time: May 29, 2020 05:02 AM PLASMA Reporting Lab: [facility] [address] [facility] [address] Performing Lab: [facility] [place] [address] ELECTROLY CHLORIDE 109 98 - 107 01/11 H Specimen Typ e: PLASMA [place] AMY/ANION [MOLES/VOLU /2021 No comment entered. IS [facility] GAP ME] IN Ordering Provid er: ADAM MORAN SERUM OR Report Release d Date/Time: May 29, 2020 05:02 AM PLASMA Reporting Lab: [facility] ONE [facility] [place] 2[facility] [address] [facility] [address] Performing Lab: [facility] [address] [facility] [address] ELECTROLY CARBON 22 22 - 29 01/11 Specimen Type: PLASMA [place] AMY/ANION DIOXIDE, /2021 No comment en tered. IS [facility] GAP TOTAL Ordering Provid er: ADAM MORAN [MOLES/VOLU Report Rele ased Date/Time: May 29, 2020 05:02 AM ME] IN Reporting Lab: [facility] SERUM OR [address] [facility] [address] PLASMA Performing Lab: [facility] [address] [place] [address] ELECTROLY ANION GAP 9 5 - 15 01/11 Specimen Typ e: PLASMA [place] AMY/ANION IN SERUM OR /2021 No comment entered. IS [facility] GAP PLASMA Ordering Provid er: ADAM MORAN Report Released Date/Time: May 29, 2020 05:02 AM Reporting Lab: [facility] [place] [address] Performing Lab: [facility] [address] [facility] [address] GLUCOSE GLUCOSE 101 70 - 100 01/11 H Specimen Type: PLASMA [place] [MASS/VOLUM /2021 No comment e ntered. IS [facility] E] IN SERUM Ordering Pr ovider: ADAM MORAN OR PLASMA Report Releas ed Date/Time: May 29, 2020 05:02 AM Reporting Lab: [facility] [address] [place] [address] Performing Lab: [facility] [place] [address] HEMOGLOBI HEMOGLOBIN 5.8 4.0 - 6.0 01/11 Specimen Type: BLOOD [place] N A1C A1C/HEMOGLO /2021 Comment: Va lues obtained from A1C measurements can vary. For typical A1C assays, a reported value of 7.0 could actually be between 6.7 and 7.3 if measured by a reference method. A reported value of 9.0 IS [facility] BIN.TOTAL could actuall y be between 8.7 and 9.3. Ref: http://www.ngsp.org/CAPdata.asp IN BLOOD Ordering Provi johnny: ADAM MORAN Report Released Date/Time: May 29, 2020 05:02 AM Reporting Lab: [facility] [address] [place] [address] Performing Lab: [facility] [address] [place] [address] TSH THYROTROPIN 2.28 0.35 - 01/11 Specimen Typ e: PLASMA [place] W/REFLEX [UNITS/VOLU 4.94 /2021 No comment entered. IS [facility] TO FREE ME] IN Ordering Provid er: ADAM MORAN T4 SERUM OR Report Release d Date/Time: May 29, 2020 05:02 AM PLASMA Reporting Lab: [facility] [address] [facility] [address] Performing Lab: [facility] [place] [address] AST/SGOT ASPARTATE 17 <34 - 34 01/11 Specimen Typ e: PLASMA [place] AMINOTRANS No comment e ntered. IS [facility] ERASE Ordering Provid er: ADAM MORAN [ENZYMATIC Report Relea sed Date/Time: May 29, 2020 05:02 AM ACTIVITY/VO Reporting L ab: [facility] LUME] IN [address] [facility] [address] SERUM OR Performing Lab : [facility] PLASMA [address] [place] [facility] [address] Vital Signs Combined list of inpatient and outpatient Vital Signs from Department of Defense and Veterans Affairs, ranging from 12 months to all on record, depending upon the facility. Vital Sign Value Date Comments Source SYSTOLIC BLOOD PRESSURE 120 01/11/2022 14:16:34 [facility] DIASTOLIC BLOOD PRESSURE 81 01/11/2022 14:16:34 [facility] PULSE OXIMETRY 93% 01/11/2022 14:16:34 [place] [facility] WEIGHT 241 01/11/2022 14:16:34 [place] [facility] BMI 33kg/m2 01/11/2022 14:16:34 [place] [facility] PAIN 0 01/11/2022 14:16:34 [place] [facility] PULSE 92 01/11/2022 14:16:34 [place] [facility] RESPIRATION 18 01/11/2022 14:16:34 [place] [facility] Encounters Combined list of: 1) Encounters from Department of Veterans Affairs facilities going back up to the last 18 months. 2) Encounters from the Department of Defense facilities going back up to 280 months. Location Location Encounter Encounter Reason Attending ADM DC Stat us Disposition Source Details Type Number For Provider Date Date Visit OFFICE O/P 22864-8.61 Diagnos VERNELL,NO 11/27 [place] EST MOD [id number] is: RELL [place] 30-39 [place] ICD-10- HCS CM Z85.828 Persona l history of other maligna nt neoplas m of skin
with Provide r Comment s: Persona l history of other maligna nt neoplas m of skin Outpatient [id number] CIMIKEKAYE 12/02 [place] Encounter [id number] M /2020 [place] [facility] Outpatient [id number] Baldomero MATTNO 12/02 [place] Encounter [id number] is: RA ZACARIAS ROBERT [facility] [place] ICD-[place] H[place] CM C44.41 Basal cell carcino ma of skin of scalp and neck
with Provide r Comment s: [place]al [place] [address]-4.61 Diagnos CHELSEA AC 12/09 [place] EDUCATION [id number] is: /2020 [place] NOC ICD-10- HCS INDIVID CM Z71.89 Other specifi ed estate planning counselor ing<br/ >with Provide r Comment s: [place] [address]-7.61 Diagnos CHELSEA AC 12/21 [place] EDUCATION [id number] is: /2020 [place] N[place] ICD-10- HCS INDIVID CM Z71.89 Other specifi ed estate planning counselor ing<br/ >with Provide r Comment s: Other specifi ed Route Driver ing INTMD RPR 88218-8.61 Diagnos CELY DUMONT 12/22 [place] S/A/T/EXT [id number] is: IEL R [place] 2.6-7.5 ICD-10- HCS CM C44.41 Basal cell carcino ma of skin of scalp and neck
with Provide r Comment s: Basal cell carcino ma of skin of scalp and neck Outpatient [id number] 01/13 [place] Encounter [id number] /2020 [place] [facility] Outpatient 79379-4.61 NIEHYAMIL,GL 01/21 [place] Encounter [id number] ORIA E [place] [facility] Outpatient [id number] 05/27 [place] Encounter [id number] /2021 [place] [facility] Outpatient [id number] 01/03 [place] Encounter [id number] /2021 [place] [facility] Outpatient [id number] LUISA,LA 01/10 [place] Encounter [id number] INE [facility] OFFICE O/P 75649-8.61 Diagnos ASHUTOSH MORAN 01/11 [place] EST MOD [id number] is: INE [facility] 30-39 MIN ICD-10- HCS CM I10 Essenti al (primar y) hyperte nsion<b r/>with Provide r Comment s: Benign essenti al hyperte nsion (SCT [id number] ) Social History Combined list of available smoking, tobacco, and other social [facility]. Social History Type Response Date Comment Source Tobacco smoking status VA-TOBACCO FORMER USER 01/11/2022 [facility]IS History of tobacco use [place]-TO[place]ACCO QUIT 15 YRS 01/11/2022 [facility] OR MORE History of tobacco use [place]-TOBACCO QUIT 15 YRS 03/20/2019 [facility] OR MORE History of tobacco use [place]-TOBACCO FORMER USER 01/17/2018 [facility] History of tobacco use LIFETIME NON-TOBACCO 01/26/2017 [facility] USER History of tobacco use FORMER TOBACCO USER 7Y 12/09/2015 [facility] OR GREATER History of tobacco use FORMER TOBACCO USER 7Y 04/19/2010 [facility] OR GREATER Plan of Care List of future care activities from Department [facility] Affairs facilities. Additional future care activities may be listed in the Assessment and Plan section. Date/Time Care Activity Care Activity Detail Facility 01/20/2022 Consult Order [facility] [place] [facility] Pet Feeder's Choice
--- NOTE | 2022-02-22 13:45 | CRLHL7_ITS ---
For Patients: As a result of the Century Cures Act, medical imaging exams and procedure reports are released immediately into your electronic medical record. You may view this report before your referring provider. If you have questions, please contact your health care provider. CLINICAL INFORMATION: Rectal cancer, no history provided by referring clinician TECHNIQUE: Contrast enhanced MRI of the pelvis, rectal cancer protocol with small [id number]-njls T2 sequences through the rectum. DOTAREM 15 mL COMPARISON: CT dated February 15, 2022 FINDINGS: Prostate is markedly enlarged with BPH. No obvious prostatic lesion. Bladder is trabeculated. No bladder lesion. Normal course and caliber of the vessels. No lymphadenopathy. No free fluid. No significant osseous abnormality. No history provided as to location of rectal tumor. A candidate lesion is located in the high rectum above the peritoneal reflection (series 5, image 11) located approximately 20 centimeters above the anal verge along the right rectal wall measuring approximately 1.9 x 1.2 centimeters. There is indistinctness of the muscularis at this level (series 5, image 12) and (series 8, image 18) with minimal extension beyond the muscularis. There is no pelvic sidewall invasion or vascular involvement. IMPRESSION: 1. Semi circumferential high rectal tumor measuring approximately 1.9 x 1.2 centimeters located along the right rectal wall approximately 20 centimeters from the anal verge with minimal extension beyond the muscularis propria. T3 N0. 2. No abnormal lymph nodes. Dictated by Yogi Toussaint MD @ 02/23/2022 2:38:13 PM (Electronically Signed)
== END 2022-02-22 13:24 | disposition home or self-care (01) ==
PROVIDERS: PCP Family Medicine; Visit Provider Student in an Organized Health Care Education/Training Program
DX: C20 Malignant neoplasm of rectum (principal)
CPT/HCPCS: 72197; A9575

== ENCOUNTER 2022-09-29 09:30 | Outpatient (RCR) | payer OTHER, SELFPAY ==
[2022-05-11 15:35] LABS: Carcinoembryonic Antigen 5.8 ng/mL
[2022-09-12 08:56] LABS: Basophils Absolute Auto 0.01 K/uL (0.00-0.30); Basophils Percent Auto 0.2 % (0.0-3.0); Eosinophils Absolute Auto 0.15 K/uL (0.00-0.50); Eosinophils Percent Auto 3.2 % (0.0-7.0); Hematocrit 57.3 % (37.0-53.0); Hemoglobin* 19.6 gm/dL (13.5-17.5); Immature Granulocytes Abs Auto 0.02 K/uL (0.00-0.30); Immature Granulocytes Pct Auto 0.4 %; Lymphocytes Absolute Auto 1.31 K/uL (0.90-2.90); Lymphocytes Percent Auto 27.6 % (20-44); Mean Corpuscular HGB Conc 34 gm/dL (32-36); Mean Corpuscular Hemoglobin 31 pg (26-34); Mean Corpuscular Volume 90 fL (80-100); Monocytes Percent Auto 12.9 % (0.0-11.0); Neutrophils Absolute Auto 2.64 K/uL (1.7-7.0); Neutrophils Percent Auto 55.7 % (42.0-72.0); Platelet Count* 201 K/uL (140-440); Red Blood Count 6.38 m/uL (4.30-5.90); White Blood Count* 4.74 K/uL (4.50-11.00)
[2022-09-12 08:58] LABS: Slide Review Reflex No
[2022-09-12 09:08] LABS: Albumin* 4.9 g/dL (3.3-5.0)
[2022-09-12 09:09] LABS: Chloride* 105 mmol/L (96-114); Potassium* 4.7 mmol/L (3.6-5.1); Sodium* 141 mmol/L (135-149)
[2022-09-12 09:11] LABS: Bilirubin Total* 1.2 mg/dL (0.1-1.5); Carbon Dioxide* 27 mmol/L (20-32); Estimated Glomerular Filt Rate 78 ml/min
[2022-09-12 09:12] LABS: Alanine Aminotransferase* 24 U/L (4-50); Alkaline Phosphatase* 59 U/L (40-150); Aspartate Amino Transferase* 24 U/L (12-35); Blood Urea Nitrogen* 18 mg/dL (7-30); Calcium* 9.4 mg/dL (8.4-10.6); Glucose* 135 mg/dL (60-115); Total Protein* 7.9 g/dL (6.0-8.3)
[2022-09-13 23:05] LABS: Carcinoembryonic Antigen 6.2 ng/mL
[2022-09-28 09:48] LABS: Ferritin* 62.1 ng/mL (17.9-464.0)
== END 2022-11-05 23:59 | disposition home or self-care (01) ==
LOC: CCIC 09:30
PROVIDERS: Internal Medicine Medical Oncology; PCP Family Medicine; Referring Provider Family Medicine; Visit Provider Internal Medicine Hematology & Oncology
DX: C19 Malignant neoplasm of rectosigmoid junction (principal); R78.89 Finding of other specified substances, not normally found in blood
CPT/HCPCS: 36415; 80053; 82378; 82728; 85025; 99202; 99204; 99212; 99214

== ENCOUNTER 2022-12-27 07:35 | Outpatient (CLI) | payer OTHER, SELFPAY ==
--- NOTE | 2022-12-27 08:00 | CRLHL7_ITS ---
For Patients: As a result of the Century Cures Act, medical imaging exams and procedure reports are released immediately into your electronic medical record. You may view this report before your referring provider. If you have questions, please contact your health care provider. Indication: RECTOSIGMOID CANCER FOLLOW UP Technique: Postcontrast CT chest, abdomen and pelvis. 117 cc Isovue 370 intravenous contrast. Please note that all CT scans at this facility use dose modulation, iterative reconstruction, and/or weight-based dosing when appropriate to reduce radiation dose to as low as reasonably achievable. Comparison: 09/12/2022 Findings: In the chest, there is a small calcified nodule within the left upper lobe. Areas of scarring/fibrosis within both lung bases. The no pleural effusion. No suspicious pulmonary nodule. No enlarged mediastinal, hilar or axillary lymph nodes. No suspicious thyroid nodules. No fracture deformity. No suspicious osseous lesion. In the abdomen, there is no intrahepatic mass. Mild hepatic steatosis. Spleen normal. Normal adrenal glands. Calcification adjacent to the uncinate process of the pancreas. No pancreatic lesion. No calcified gallstones or biliary obstruction. Small bilateral renal cysts. Atherosclerotic changes. No aneurysm. No retroperitoneal or mesenteric adenopathy. No hiatal hernia. In the pelvis, the prostate is enlarged and heterogeneous. Stones associated with the left posterior bladder. Postop changes of low anterior colonic resection. No organic of bowel obstruction or inflammatory changes. Mild colonic diverticulosis. No diverticulitis. Severe degenerative changes L2-3. No vertebral body compression fracture. Impression: Stable postop changes of distal colonic resection. No bowel obstruction or inflammatory changes. No evidence of metastatic disease. Chronic stones in the bladder. Please note that all CT scans at this facility use dose modulation, iterative reconstruction, and/or weight-based dosing when appropriate to reduce radiation dose to as low as reasonably achievable. Dictated by José Anaya MD @ 12/27/2022 12:39:22 PM (Electronically Signed)
[2022-12-27 08:09] LABS: Creatinine* 0.9 mg/dL (0.5-1.5); Estimated Glomerular Filt Rate 89 ml/min
== END 2022-12-27 07:36 | disposition home or self-care (01) ==
LOC: CT 07:36
PROVIDERS: PCP Family Medicine; Visit Provider Internal Medicine Hematology & Oncology
DX: C19 Malignant neoplasm of rectosigmoid junction (principal); N21.0 Calculus in bladder
CPT/HCPCS: 36415; 71260; 74177; 82565; Q9967

== ENCOUNTER 2023-03-28 07:31 | Outpatient (CLI) | payer OTHER, SELFPAY ==
--- NOTE | 2023-03-28 08:00 | CRLHL7_ITS ---
For Patients: As a result of the Century Cures Act, medical imaging exams and procedure reports are released immediately into your electronic medical record. You may view this report before your referring provider. If you have questions, please contact your health care provider. INDICATION: Malignant neoplasm of the rectosigmoid junction TECHNIQUE: CT chest, abdomen and pelvis acquired with 121 cc Isovue 370 intravenous contrast. COMPARISON: Chest, abdomen and pelvis CT 12/27/2022 FINDINGS: CHEST: Cardiovascular structures: Thoracic aorta is normal in caliber with mild atherosclerotic calcification. No pericardial effusion. Moderate coronary atherosclerosis. Mediastinum and ksenia: Hypodense nodule left lobe of the thyroid gland measuring 6 millimeters, stable. No enlarged mediastinal lymph nodes. Lungs and pleura: No pleural effusion or pneumothorax. Mild mosaic attenuation pattern within the lungs. Stable left upper lobe granuloma. Chest wall and axilla: No mass or adenopathy. Bones: No suspicious bone lesions. Unremarkable for age. ABDOMEN AND PELVIS: Liver: Diffusely decreased density of the liver without focal lesion. Gallbladder and bile ducts: Unremarkable. Pancreas: Unremarkable. Spleen: Unremarkable. Adrenal glands: Unremarkable. Kidneys: Symmetric renal enhancement. No hydronephrosis. Exophytic cyst mid right kidney with slightly hyperdense exophytic lesion measuring 11 millimeters lower pole right kidney, similar in size to the prior exam. Cyst at the mid left kidney measuring 15 millimeters. GI tract: The stomach is unremarkable. Small bowel is decompressed. Normal appendix. Large amount of stool within the colon. Underlying colonic diverticulosis. Suture line at the rectosigmoid junction. Vascular structures: Atherosclerosis without abdominal aortic aneurysm. Lymph nodes: Unremarkable. Miscellaneous: Unremarkable. No free air or significant free fluid. Pelvic Organs: Dependent stones within the bladder. Marked prostatic enlargement. Bones: Degenerative disc disease thoracolumbar spine. IMPRESSION: 1. Status post rectosigmoid surgery without evidence of metastatic disease. 2. Marked prostatic enlargement with dependent stones within the bladder. 3. Mosaic attenuation pattern within the lungs. This is nonspecific but can be seen in small airways disease. Please note that all CT scans at this facility use dose modulation, iterative reconstruction, and/or weight-based dosing when appropriate to reduce radiation dose to as low as reasonably achievable. Dictated by Shon Castorena MD @ 03/28/2023 9:35:50 AM (Electronically Signed)
[2023-03-28 08:08] LABS: Estimated Glomerular Filt Rate 78 ml/min
[2023-03-28 08:30] LABS: Basophils Absolute Auto 0.01 K/uL (0.00-0.30); Basophils Percent Auto 0.2 % (0.0-3.0); Eosinophils Absolute Auto 0.22 K/uL (0.00-0.50); Eosinophils Percent Auto 4.8 % (0.0-7.0); Hematocrit 58.9 % (37.0-53.0); Hemoglobin* 19.8 gm/dL (13.5-17.5); Immature Granulocytes Abs Auto 0.02 K/uL (0.00-0.30); Immature Granulocytes Pct Auto 0.4 %; Lymphocytes Absolute Auto 1.24 K/uL (0.90-2.90); Lymphocytes Percent Auto 27.1 % (20-44); Mean Corpuscular HGB Conc 34 gm/dL (32-36); Mean Corpuscular Hemoglobin 31 pg (26-34); Mean Corpuscular Volume 91 fL (80-100); Monocytes Percent Auto 14.4 % (0.0-11.0); Neutrophils Absolute Auto 2.42 K/uL (1.7-7.0); Neutrophils Percent Auto 53.1 % (42.0-72.0); Platelet Count* 192 K/uL (140-440); Red Blood Count 6.47 m/uL (4.30-5.90); White Blood Count* 4.57 K/uL (4.50-11.00)
[2023-03-28 08:34] LABS: Slide Review Reflex No
[2023-03-28 08:37] LABS: Albumin* 4.7 g/dL (3.3-5.0)
[2023-03-28 08:38] LABS: Chloride* 106 mmol/L (96-114); Potassium* 4.2 mmol/L (3.6-5.1); Sodium* 140 mmol/L (135-149)
[2023-03-28 08:40] LABS: Alkaline Phosphatase* 57 U/L (40-150); Anion Gap 7 mEq/L (7-15); Aspartate Amino Transferase* 34 U/L (12-35); Bilirubin Total* 1.1 mg/dL (0.1-1.5); Carbon Dioxide* 27 mmol/L (20-32)
[2023-03-28 08:41] LABS: Alanine Aminotransferase* 28 U/L (4-50); Blood Urea Nitrogen* 15 mg/dL (7-30); Calcium* 9.3 mg/dL (8.4-10.6); Glucose* 167 mg/dL (60-115); Total Protein* 7.4 g/dL (6.0-8.3)
[2023-03-29 23:15] LABS: Carcinoembryonic Antigen 6.6 ng/mL
== END 2023-03-28 07:32 | disposition home or self-care (01) ==
PROVIDERS: PCP Family Medicine; Visit Provider Internal Medicine Hematology & Oncology
DX: C19 Malignant neoplasm of rectosigmoid junction (principal); N40.0 Benign prostatic hyperplasia without lower urinary tract symptoms; K80.20 Calculus of gallbladder without cholecystitis without obstruction
CPT/HCPCS: 36415; 71260; 74177; 80053; 82378; 82565; 85025; Q9967

== ENCOUNTER 2023-05-18 08:30 | Outpatient (CLI) | payer OTHER, SELFPAY ==
--- OUTSIDE RECORDS SUMMARY | 2023-05-19 05:47 | XMS_ITS | Clinical Summary ---
Author Name Unknown Organization [facility] Address [address] [place] [id number] Care Team Providers Care Flight Engineer Name Role Phone Miguel Dowling MD Primary Care Provider [phone] Allergies No known active allergies Medications Medication Sig Dispensed Refills Start Date End Date Status LISINOPRIL PO Take by mouth. 0 Active amLODIPine (NORVASC) 10 MG tablet Take 1 tablet by mouth daily 0 04/10/2021 Active allopurinol (ZYLOPRIM) 300 MG tablet Take 300 mg by mouth 0 05/12/2021 Active Social History Tobacco Use Types Packs/Day Years Used Date Smoking Tobacco: Former Tobacco Cessation:Counseling Given: Not Answered Alcohol Use Standard Drinks/Week Comments Yes 0 (1 standard drink = 0.6 oz pur e alcohol) socially Adolescent Education Answer Date Record ed Getting School Help Needed Not on file 01/22 Sex and Gender Information Value Date Recorded Sex Assigned at Not on file Gender Identity Not on file Sexual Orientation Not on file Last Filed Vital Signs Vital Sign Reading Time Taken Comments Blood Pressure 91/72 03/29/2022 12:11 PM AGRICULTURAL ECONOMICS PROFESSOR Pulse 111 03/29/2022 12:21 PM AGRICULTURAL ECONOMICS PROFESSOR Temperature 36.6 ??C (97.9 ??F) 07/30/2011 6:27 PM CD T Respiratory Rate 25 03/29/2022 12:21 PM AGRICULTURAL ECONOMICS PROFESSOR Oxygen Saturation 92% 03/29/2022 12:16 PM AGRICULTURAL ECONOMICS PROFESSOR Inhaled Oxygen Concentration - - Weight 108.9 kg (240 lb) 03/29/2022 11:22 AM AGRICULTURAL ECONOMICS PROFESSOR Height 180.3 cm (5' 11) 03/29/2022 11:22 AM AGRICULTURAL ECONOMICS PROFESSOR Body Mass Index 33.47 03/29/2022 11:22 AM AGRICULTURAL ECONOMICS PROFESSOR Plan of Treatment Health Maintenance Due Date Last Done Comments ADVANCE CARE PLANNING 1945 ANNUAL REVIEW OF HM ORDERS 1945 HEPATITIS C SCREENING 1965 LIPID 1982 LUNG CANCER SCREENING 1997 RSV VACCINE ( & 60+) (1 - 1-dose 60+ series) 2007 FALL RISK ASSESSMENT 01/25/2012 MEDICARE ANNUAL WELLNESS VISIT 01/25/2012 ZOSTER IMMUNIZATION (2 of 3) 02/03/2016 12/09/2015 COVID-19 Vaccine (3 - season) 2022 06/22/2020, 05/29/2020 INFLUENZA VACCINE (#1) 2022 , 01/23/2016 PHQ-2 (once per calendar year) 2023 DTAP/TDAP/TD IMMUNIZATION (3 - Td or Tdap) 03/06/2028 03/06/2018, 11/30/2012 Pneumococcal Vaccine: 65+ Years Completed 01/07/2021, 03/06/2018, 12/09/2015 COLORECTAL CANCER SCREENING Discontinued FLEX SIG Discontinued 03/29/[address] COLONOGRAPHY Discontinued FIT Discontinued HPV IMMUNIZATION Aged Out No longer e ligible based on patient's age to complete this topic IPV IMMUNIZATION Aged Out No longer e ligible based on patient's age to complete this topic MENINGITIS IMMUNIZATION Aged Out No l onger eligible based on patient's age to complete this topic RSV MONOCLONAL ANTIBODY Aged Out No l onger eligible based on patient's age to complete this topic sDNA (Cologuard) Discontinued Care Teams Flight Engineer Relationship Specialty Start Date End Date Miguel Dowling MD PCP - General Family Medicine 03/07/22
--- OUTSIDE RECORDS SUMMARY | 2023-05-19 05:47 | XMS_ITS | Clinical Summary ---
Author Name Unknown Organization [facility] Address [address] [place] [address] Care Team Providers Care Independent Consultant Name Role Phone Kristine Brown MD Primary Care Provider Source Comments You are receiving this document as you are listed as the primary care provider,follow-up provider, or the patient has been referred to you for consultation.This is in compliance with the Medicare andMedicaid EHR Incentive Program,which states Providers who transition their patient to another setting of careor provider of care or refers their patient to another provider of care shouldprovide summary care record for each transition of care or referral. [place] Allergies Active Allergy Reactions Criticality Noted Date Comments Cefadroxil Other, see comments 06/02/2021 Bloody diarrhea Oxycodone Other, see comments 11/09/2011 Patient refuses to take it due to family addiction issues. Medications Medication Sig Dispensed Refills Start Date End Date Status Multiple Vitamins-Iron (MULTIVITAMIN/IRON OR) 0 Active amLODIPine (NORVASC) 10 MG tablet Take 1 Tab by mouth daily. 90 Tab 3 11/07/2016 Active allopurinol (ZYLOPRIM) 300 MG tablet Take 1 Tab by mouth daily. 90 Tab 3 01/25/2017 Active predniSONE (DELTASONE) 5 MG tablet TAKE ONE TABLET BY MOUTH EVERY DAY 90 Tab 1 02/27/2017 Active Additional Information Patient not taking.Reported on 07/12/2017 lisinopril (ZESTRIL) 40 MG tablet TAKE 1 TABLET BY MOUTH DAILY. 90 Tab 0 08/18/2017 Active tamsulosin (FLOMAX) 0.4 MG CAPS capsule 0 11/26/2019 Activ e amoxicillin (AMOXIL) 500 MG capsule Take 2 Capsules (1,000 mg) by mouth two times a day. 0 02/10/2022 Active GAVILYTE-G 236 g oral solution Take by mouth. 0 01/15/2022 Active allopurinol (ZYLOPRIM) 300 MG tablet Take 1 Tablet (300 mg) by mouth daily. 0 Active amLODIPine (NORVASC) 10 MG tablet Take 1 Tablet (10 mg) by mouth daily. 0 Active Active Problems Problem Noted Date Diagnosed Date Prediabetes 02/16/2015 History of basal cell cancer 01/16/2015 HTN (hypertension) 04/09/2013 Overview: 11/06/15 Increase: Amlodipine to 10 mg. Madyson Epperson RN 11/27/2015, 4:49 PM ; HTN (hypertension) ([facility]) Nurse managed Immunizations Name Administration Dates Next [...] Date Smoking Tobacco: Former Cigarettes 1 9 0 04/24/1962 - 04/24/1971 Smokeless Tobacco: Never Tobacco Cessation:Counseling Given: Not Answered Alcohol Use Standard Drinks/Week Comments Yes 4.2 (1 standard drink = 0.6 oz p ure alcohol) occ Sex and Gender Information Value Date Recorded Sex Assigned at Not on file Gender Identity Not on file Sexual Orientation Not on file Last Filed Vital Signs Vital Sign Reading Time Taken Comments Blood Pressure 143/87 07/26/2017 8:48 AM CDT Pulse 72 12/29/2022 11:05 AM CDT Temperature 38.2 ??C (100.7 ??F) 07/14/2016 1:46 PM C DT Respiratory Rate 14 05/19/2016 9:41 AM CONTACT LENS BLOCKER Oxygen Saturation - - Inhaled Oxygen Concentration - - Weight 108 kg (238 lb) 07/26/2017 8:48 AM CDT Height 182.9 cm (6') 2017 2:30 PM CDT Body Mass Index 32.28 2017 2:30 PM CDT Plan of Treatment Health Maintenance Due Date Last Done Comments Hep C Screening (Preventive Services) 1945 Medicare Annual Wellness Visit 1945 COVID-19 Vaccine (#1) 1945 Zoster/Shingles (1 of 2) 1997 Pneumococcal 65+ Yrs (1 - PCV) 01/25/2012 DTaP/Tdap/Td (2 - Tdap) 11/30/2022 11/30/2012 Influenza (#1) 2022 01/23/2016 Cholesterol Discontinued 01/30/2015, 11/19/2012 HepA Aged Out No longer eligi ble based on patient's age to complete this topic HepB Aged Out No longer eligi ble based on patient's age to complete this topic Hib Aged Out No longer eligi ble based on patient's age to complete this topic IPV (Polio) Aged Out No longer eligi ble based on patient's age to complete this topic MCV4 Aged Out No longer eligi ble based on patient's age to complete this topic Care Teams Independent Consultant Relationship Specialty [place] [id number] [place] [address] PCP - General Family Practice 03/25/13
--- OUTSIDE RECORDS SUMMARY | 2023-05-19 05:47 | XMS_ITS | Continuity of Care Document ---
Author Name [facility] Organization [facility] Care Team Providers Care Keyboarding Teacher Name Role Phone [facility] Unavailable Unavailable Problems Combined list of problems from Department of [facility] and Veterans Affairs facilities. It does not include entries that were removed or entered in error. Problem Status Onset Date Problem Type Date of Resolution Comments Source Basal cell carcinoma of skin Active Condition Mar 17, 2017 Entered By: ALEJANDRO REN Comment: 03.15.2017 R Nose. [facility] Benign essential hypertension (SNOMED CT [id number]) Active Condition [facility] Elevated PSA Active Condition [facility] Erythrocytosis Active Condition [facility] Gout Active Condition [facility] H/O: vasectomy Active Condition [facility] Health Maintenance (ICD-9-CM V65.9) [facility] History of tonsillectomy Active Condition [facility] Hyperlipidemia Active Condition [facility] Obstructive sleep apnea of adult Active Condition [facility] Diagnosis: ICD-10-CM I10 Essential (primary) hypertension Active Diagnosis [facility] Medications Combined list of outpatient medications from [facility] and [facility] facilities.Medications provided include 1) outpatient medications from the last 15 months, and 2) patient-reported medications. Medication Details Route Status Patient Instructions Prescription Expires Prescription Number Last Dispense Date Ordering Provider Order Date Source ALLOPURINOL TAB TAKE BY MOUTH ORALLY ACTIVE Wild MORAN 2016 [facility] AMLODIPINE BESYLATE 10MG TAB TAKE ONE-HALF TABLET BY MOUTH ORALLY ACTIVE Wild MORAN 2015 [facility] ASPIRIN 325MG TAB TAKE ONE TABLET BY MOUTH EVERY DAY ORALLY ACTIVE DANIEL JOE 2009 [facility] LISINOPRIL 40MG TAB TAKE ONE TABLET BY MOUTH EVERY DAY ORALLY ACTIVE Wild MORAN 2015 [facility] MULTIVITAMI NS CAP/TAB TAKE ONE TABLET BY MOUTH EVERY DAY ORALLY ACTIVE Wild MORAN 2015 [facility] NAPROXEN 250MG TAB TAKE ONE-HALF TABLET BY MOUTH PRN ORALLY ACTIVE DANIEL JOE 2009 [facility] Allergies, Adverse Reactions, Alerts Combined list of allergies from Department of Defense and Veterans Affairs facilities. It does not include entries that were removed or entered in error. Substance Category Reaction Severity Reaction type Status Date Reported Comments Source CEFADROXIL Propensity to adverse reactions to drug (finding) Bleeding active 2 [facility] HCTZ HYDROCHLOROTH IAZIDE Propensity to adverse reactions to drug (finding) Gout active 6 [facility] METOPROLOL Propensity to adverse reactions to drug (finding) Fatigue active 8 [facility] Immunizations Combined list of available immunizations from the Department of [facility] and [facility] facilities. Immunization Series Date Given Administered By Site Reaction Lot Number CVX Code Drug [place] Laborer Status Comments Source COVID-19 (Lymbix), MRNA, LNP-S, PF, 30 MCG/0.3 ML DOSE 2 2020 208 complet ed PFR; [id number]; 1 [facility] COVID-19 (PFIZER), MRNA, LNP-S, PF, 30 MCG/0.3 ML DOSE 1 2020 208 complet ed PFR; [id number]; 1 [facility] PNEUMOCOCCAL POLYSACCHARID E [id number] 2017 33 complet ed [employer],[id number] [id number] 20 [facility] TDAP 2017 115 complet ed sanofi pastuer [id number], [facility] PNEUMOCOCCAL CONJUGATE PCV 13 2015 133 complet ed [facility],M79 321,12/08 [facility] ZOSTER LIVE 2015 121 complet ed [employer],[id number] [id number] 16 [facility] Results Combined list of recent chemistry, hematology and other laboratory results from Department of Defense and Veterans Affairs, ranging from 15 months to all on record, depending upon the facility. Order Name Results Value Reference Range Date Interpretation Specimen Comments Source ALT/SGPT ALANINE AMINOTRANSF ERASE [ENZYMATIC ACTIVITY/VO LUME] IN SERUM OR PLASMA 22 <55 - 55 01/11 Specimen Type: PLASMA No comment entered. Ordering Provider: ROMY MORAN Report Released Date/Time: May 29, 2020 05:02 AM Reporting Lab: [facility] [address] Performing Lab: [facility] [address] [place] [facility] AST/SGOT ASPARTATE AMINOTRANSF ERASE [ENZYMATIC ACTIVITY/VO LUME] IN SERUM OR PLASMA 17 <34 - 34 01/11 Specimen Type: PLASMA No comment entered. Ordering Provider: ROMY MORAN Report Released Date/Time: May 29, 2020 05:02 AM Reporting Lab: [facility] [address] Performing Lab: [facility] [address] [place] [facility] CBC LEUKOCYTES [#/VOLUME] IN BLOOD BY AUTOMATED COUNT 5.01 4.0 - 11.0 01/11 Specimen Type: BLOOD No comment entered. Ordering Provider: ROMY MORAN Report Released Date/Time: May 29, 2020 05:02 AM Reporting Lab: [facility] [address] Performing Lab: [facility] [address] [place] [facility] CBC ERYTHROCYTE S [#/VOLUME] IN BLOOD BY AUTOMATED COUNT 6.38 4.6 - 6.2 01/11 H Specimen Type: BLOOD No comment entered. Ordering Provider: ROMY MORAN Report Released Date/Time: May 29, 2020 05:02 AM Reporting Lab: [facility] [address] Performing Lab: [facility] [address] [place] [facility] CBC HEMOGLOBIN [MASS/VOLUM E] IN BLOOD 19.1 13.5 - 17.9 01/11 H Specimen Type: BLOOD No comment entered. Ordering Provider: ROMY MORAN Report Released Date/Time: May 29, 2020 05:02 AM Reporting Lab: [facility] [address] Performing Lab: [facility] [address] [place] [facility] CBC HEMATOCRIT [VOLUME FRACTION] OF BLOOD BY AUTOMATED COUNT 56.0 41 - 54 01/11 H Specimen Type: BLOOD No comment entered. Ordering Provider: ROMY MORAN Report Released Date/Time: May 29, 2020 05:02 AM Reporting Lab: [facility] [address] Performing Lab: [facility] [address] [place] [facility] CBC MCV [ENTITIC VOLUME] BY AUTOMATED COUNT 87.8 80 - 100 01/11 Specimen Type: BLOOD No comment entered. Ordering Provider: ROMY MORAN Report Released Date/Time: May 29, 2020 05:02 AM Reporting Lab: [facility] [address] Performing Lab: [facility] [address] [place] [facility] CBC MCH [ENTITIC MASS] BY AUTOMATED COUNT 29.9 27 - 33 01/11 Specimen Type: BLOOD No comment entered. Ordering Provider: ROMY MORAN Report Released Date/Time: May 29, 2020 05:02 AM Reporting Lab: [facility] [address] Performing Lab: [facility] [address] [place] [facility] CBC MCHC [MASS/VOLUM E] BY AUTOMATED COUNT 34.1 32.0 - 37.5 01/11 Specimen Type: BLOOD No comment entered. Ordering Provider: ROMY MORAN Report Released Date/Time: May 29, 2020 05:02 AM Reporting Lab: [facility] [address] Performing Lab: [facility] [address] [place] [facility] CBC PLATELETS [#/VOLUME] IN BLOOD BY AUTOMATED COUNT 202 150 - 400 01/11 Specimen Type: BLOOD No comment entered. Ordering Provider: ROMY MORAN Report Released Date/Time: May 29, 2020 05:02 AM Reporting Lab: [facility] [address] Performing Lab: [facility] [address] [place] [facility] CBC PLATELET MEAN VOLUME [ENTITIC VOLUME] IN BLOOD BY AUTOMATED COUNT 8.9 7.4 - 10.4 01/11 Specimen Type: BLOOD No comment entered. Ordering Provider: ROMY MORAN Report Released Date/Time: May 29, 2020 05:02 AM Reporting Lab: [facility] [address] Performing Lab: [facility] [address] [place] [facility] CBC ERYTHROCYTE DISTRIBUTIO N WIDTH [RATIO] BY AUTOMATED COUNT 14.4 11.5 - 14.5 01/11 Specimen Type: BLOOD No comment entered. Ordering Provider: ROMY MORAN Report Released Date/Time: May 29, 2020 05:02 AM Reporting Lab: [facility] [address] Performing Lab: [facility] [address] [place] [facility] CREATININ E(INCLUDE S EGFR) CREATININE [MASS/VOLUM E] IN SERUM OR PLASMA 1.0 0.7 - 1.2 01/11 Specimen Type: PLASMA No comment entered. Ordering Provider: ROMY MORAN Report Released Date/Time: May 29, 2020 05:02 AM Reporting Lab: [facility] [address] Performing Lab: [facility] [address] [place] [facility] CREATININ E(INCLUDE S EGFR) GLOMERULAR FILTRATION RATE/1.73 SQ M.PREDICTED [VOLUME RATE/AREA] IN SERUM, PLASMA OR BLOOD BY CREATININE- BASED FORMULA (CKD-EPI) 79 60 01/11 Specimen Type: PLASMA No comment entered. Ordering Provider: ROMY MORAN Report Released Date/Time: May 29, 2020 05:02 AM Reporting Lab: [facility] [address] Performing Lab: [facility] [address] [place] [facility] ELECTROLY AMY/ANION GAP SODIUM [MOLES/VOLU ME] IN SERUM OR PLASMA 140 136 - 145 01/11 Specimen Type: PLASMA No comment entered. Ordering Provider: ROMY MORAN Report Released Date/Time: May 29, 2020 05:02 AM Reporting Lab: [facility] [address] Performing Lab: [facility] [address] [place] [facility] ELECTROLY AMY/ANION GAP POTASSIUM [MOLES/VOLU ME] IN SERUM OR PLASMA 4.3 3.5 - 5.1 01/11 Specimen Type: PLASMA No comment entered. Ordering Provider: ROMY MORAN Report Released Date/Time: May 29, 2020 05:02 AM Reporting Lab: [facility] [address] Performing Lab: [facility] [address] [place] [facility] ELECTROLY AMY/ANION GAP CHLORIDE [MOLES/VOLU ME] IN SERUM OR PLASMA 109 98 - 107 01/11 H Specimen Type: PLASMA No comment entered. Ordering Provider: ROMY MORAN Report Released Date/Time: May 29, 2020 05:02 AM Reporting Lab: [facility] [address] Performing Lab: [facility] [address] [place] [facility] ELECTROLY AMY/ANION GAP CARBON DIOXIDE, TOTAL [MOLES/VOLU ME] IN SERUM OR PLASMA 22 22 - 29 01/11 Specimen Type: PLASMA No comment entered. Ordering Provider: ROMY MORAN Report Released Date/Time: May 29, 2020 05:02 AM Reporting Lab: [facility] [address] Performing Lab: [facility] [address] [place] [facility] ELECTROLY AMY/ANION GAP ANION GAP IN SERUM OR PLASMA 9 5 - 15 01/11 Specimen Type: PLASMA No comment entered. Ordering Provider: ROMY MORAN Report Released Date/Time: May 29, 2020 05:02 AM Reporting Lab: [facility] [address] Performing Lab: [facility] [address] [place] [facility] GLUCOSE GLUCOSE [MASS/VOLUM E] IN SERUM OR PLASMA 101 70 - 100 01/11 H Specimen Type: PLASMA No comment entered. Ordering Provider: ROMY MORAN Report Released Date/Time: May 29, 2020 05:02 AM Reporting Lab: [facility] [address] Performing Lab: [facility] [address] [place] [facility] HEMOGLOBI N A1C HEMOGLOBIN A1C/HEMOGLO BIN.TOTAL IN BLOOD 5.8 4.0 - 6.0 01/11 Specimen Type: BLOOD Comment: Values obtained from A1C measurement s can vary. For typical A1C assays, a reported value of 7.0 could actually be between 6.7 and 7.3 if measured by a reference method. A reported value of 9.0 could actually be between 8.7 and 9.3. Ref: http://www. ngsp.org/[place] Pdata.asp Ordering Provider: ROMY MORAN Report Released Date/Time: May 29, 2020 05:02 AM Reporting Lab: [facility] [address] Performing Lab: [facility] [address] [place] [facility] LIPID PANEL,NON -FASTING CHOLESTEROL [MASS/VOLUM E] IN SERUM OR PLASMA 168 <199 - 199 01/11 Specimen Type: PLASMA No comment entered. Ordering Provider: ROMY MORAN Report Released Date/Time: May 29, 2020 05:02 AM Reporting Lab: [facility] [address] Performing Lab: [facility] [address] [place] [facility] LIPID PANEL,NON -FASTING CHOLESTEROL IN HDL [MASS/VOLUM E] IN SERUM OR PLASMA 39 40 01/11 L Specimen Type: PLASMA No comment entered. Ordering Provider: ROMY MORAN Report Released Date/Time: May 29, 2020 05:02 AM Reporting Lab: [facility] [address] Performing Lab: [facility] [address] [place] [facility] LIPID PANEL,NON -FASTING CHOLESTEROL IN LDL [MASS/VOLUM E] IN SERUM OR PLASMA BY CALCULATION 98 <99 - 99 01/11 Specimen Type: PLASMA No comment entered. Ordering Provider: ROMY MORAN Report Released Date/Time: May 29, 2020 05:02 AM Reporting Lab: [facility] [address] Performing Lab: [facility] [address] [place] [facility] LIPID PANEL,NON -FASTING CHOLESTEROL IN VLDL [MASS/VOLUM E] IN SERUM OR PLASMA BY CALCULATION 31 <29 - 29 01/11 H Specimen Type: PLASMA No comment entered. Ordering Provider: ROMY MORAN Report Released Date/Time: May 29, 2020 05:02 AM Reporting Lab: [facility] [address] Performing Lab: [facility] [address] [place] [facility] LIPID PANEL,NON -FASTING CHOLESTEROL NON HDL [MASS/VOLUM E] IN SERUM OR PLASMA 129 <129 - 129 01/11 Specimen Type: PLASMA No comment entered. Ordering Provider: ROMY MORAN Report Released Date/Time: May 29, 2020 05:02 AM Reporting Lab: [facility] [address] Performing Lab: [facility] [address] [place] [facility] LIPID PANEL,NON -FASTING TRIGLYCERID E [MASS/VOLUM E] IN SERUM OR PLASMA 157 <149 - 149 01/11 H Specimen Type: PLASMA No comment entered. Ordering Provider: ROMY MORAN Report Released Date/Time: May 29, 2020 05:02 AM Reporting Lab: [facility] [address] Performing Lab: [facility] [address] [place] [facility] PSA PROSTATE SPECIFIC AG [MASS/VOLUM E] IN SERUM OR PLASMA 6.43 <4.00 - 4.00 01/11 H Specimen Type: SERUM No comment entered. Ordering Provider: ROMY MORAN Report Released Date/Time: May 29, 2020 05:02 AM Reporting Lab: [facility] [address] Performing Lab: [facility] [address] [place] [facility] TSH W/REFLEX TO FREE T4 THYROTROPIN [UNITS/VOLU ME] IN SERUM OR PLASMA 2.28 0.35 - 4.94 01/11 Specimen Type: PLASMA No comment entered. Ordering Provider: ROMY MORAN Report Released Date/Time: May 29, 2020 05:02 AM Reporting Lab: [facility] [address] Performing Lab: [facility] [address] [place] [facility] Encounters Combined list of: 1) Encounters from Department of Veterans Affairs facilities going back up to thelast 18 months. 2) Encounters from the Department of [facility] facilities going back up to 280 months. Location Location Details Encounter Type Encounter Number Reason For Visit Attending Provider ADM Date DC Date Status Disposition Source [place] [facility] Outpatient Encounter [id number] [facility] [place] [facility] Outpatient Encounter [id number] LUISA,LA INE E 01/10 [facility] [place] [facility] OFFICE O/P EST MOD 30-39 MIN [id number] Diagnos is: ICD-10- CM I10 Essenti al (primar y) hyperte nsion<b r/> LUISA,LA INE E 01/11 [facility] [place] [facility] Outpatient Encounter [id number] 03/02 [facility] Social History Combined list of available smoking, tobacco, and other social history from Department of Defense and [facility] facilities. 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
--- OUTSIDE RECORDS SUMMARY | 2023-05-19 05:47 | XMS_ITS | Referral Summary ---
Author Name Unknown Organization [place] Address [address] [place] [address] Care Team Providers Care Dungeon Master Name Role Phone Miguel Dowling MD Primary Care Provider [phone] Allergies No known active allergies Medications Medication [...] Comments Blood Pressure 91/72 03/29/2022 12:11 PM CONSTRUCTION REPRESENTATIVE Pulse 111 03/29/2022 12:21 PM CONSTRUCTION REPRESENTATIVE Temperature 36.6 ??C (97.9 ??F) 07/30/2011 6:27 PM CD T Respiratory Rate 25 03/29/2022 12:21 PM CONSTRUCTION REPRESENTATIVE Oxygen Saturation 92% 03/29/2022 12:16 PM CONSTRUCTION REPRESENTATIVE Inhaled Oxygen Concentration - - Weight 108.9 kg (240 lb) 03/29/2022 11:22 AM CONSTRUCTION REPRESENTATIVE Height 180.3 cm (5' 11) 03/29/2022 11:22 AM CONSTRUCTION REPRESENTATIVE Body Mass Index 33.47 03/29/2022 11:22 AM CONSTRUCTION REPRESENTATIVE Plan of Treatment Not on file Care Teams Dungeon Master Relationship Specialty Start Date End Date Miguel Dowling MD PCP - General Family Medicine 03/07/22
--- OUTSIDE RECORDS SUMMARY | 2023-05-19 05:47 | XMS_ITS | Encounter Summary ---
Author Name Unknown Organization [facility] Address [address] [place] [address] Care Team Providers Care Environmental Health Safety Manager Name Role Phone Kristine Brown MD Primary Care Provider Reason for Visit * Reason Comments Dental Hygiene No cc Encounter Details Date Type Department Care Team Description 12/29/2022 11:00 AM CDT Office Visit [facility] [address] [place], [place] [phone] Leanna Easton [facility] [address] [place], [place] [phone] Dental Hygiene (No cc) Social History Tobacco Use Types Packs/Day Years [...] on file Sexual Orientation Not on file documented as of this encounter Last Filed Vital Signs Vital Sign Reading Time Taken Comments Blood Pressure - - Pulse 72 12/29/2022 11:05 AM CDT Temperature - - Respiratory Rate - - Oxygen Saturation - - Inhaled Oxygen Concentration - - Weight - - Height - - Body Mass Index - - documented in this encounter Patient Instructions * Patient Instructions* Leanna Easton RD - 12/29/2022 11:00 AM CDT Your next hygiene recall is due 06/27/2023 YOUR PERSONAL DENTAL RISK REPORT CARIES (TOOTH DECAY) PERIODONTAL (GUM) DISEASE ORAL CANCER low mod HIGH low MOD high LOW elevated ^ ^ ^ Risk Level: HIGH Risk Factors: Caries (tooth decay) in 3 or more teeth in the last three years. How to Reduce Your Risk: Hygiene recall at 3 to 6 months. Rinse with fluoride rinse once to twice daily at times other than when brushing. Risk Level: MODERATE Risk Factors: Intermediate levels of plaque. Have had a diagnosis of gum disease either with or without past treatment. How to Reduce Your Risk: Return visit with the dental hygienist at 6 month intervals to assess periodontal condition and provide necessary treatment. Risk Level: LOW Risk Factors: Incidence of oral cancer increases with age. How to Maintain your Low Risk: Congratulations on your low risk for oral cancer. Making healthy life style choices such as not using tobacco and low to moderate alcohol use should help you maintain this low risk. Khan[place], we look forward to seeing you at your next visit! Thank you for choosing [facility]. documented in this encounter Progress Notes * Leanna Easton RDH - 12/29/2022 11:00 AM CDT HYGIENE PROPHY NOTE COLLABORATIVE AGREEMENT: The patient consents to have charting and prophylaxis by the dental hygienist performed with the understanding that this care is not a substitute for an examination by a dentist. These activities were performed under a collaborating agreement with Karyn Ramos DDS (License #: [id number]) PROCEDURAL PAUSE: Patient identity verified: Yes Treatment plan/site verified with the patient: Yes Instruments/equipment verified: Yes Any medication/allergy contraindications: No PRESENTATION: Plaque: Generalized, heavy supra-gingival and sub-gingival Calculus: Localized, moderate supra-gingival and sub-gingival and Generalized, light supra-gingivaland sub-gingival Stain: Localized, light Bleeding: Generalized heavy Gingival tissue: Inflamed and Edematous ACTIVITIES: Hand scale, Essential selective polishing, Flossed all contacts, and OHI NEXT PLANNED HYGIENE VISIT: Hygiene Prophy with exam Leanna Easton RDH 12/29/2022, 11:33 AM --End of Note-- * Karyn Ramos DDS - 12/29/2022 11:00 AM CDT RECALL EXAM NOTE REASON FOR VISIT/CHIEF COMPLAINT: Armen is a 77 y.o. male who presents for Dental Hygiene (No cc) CHART REVIEW: Reviewed with patient: Medical history, Dental history, Problem list, Periodontal charting, and Radiographs. SOFT TISSUE, HEAD AND NECK EXAMINATION: Lips: normal Tongue: normal Palate: normal Throat: normal Floor of the mouth: normal Mucosa: normal Head and neck: normal TMD EVALUATION: Palpation Pain: None Joint Sounds: None Pain with Range of Motion: None OCCLUSAL EXAMINATION: Unchanged COSMETIC CONCERNS: Patient's Perception: Acceptable Dentist's Perception: Acceptable TREATMENT REVIEW AND FOLLOW-UP: Discussed the Dental findings, Prognosis, and Treatment options with the patient. All questions answered and informed consent was obtained. 9mm pocket Li #13 today. Advised of vertical root fx. Post and crown no longer possible #13. Pt wants to leave the tooth as it is. Pt will call if it becomes symptomatic. Pt not ready to extract #3. Planned Recall Interval: Examination: 6 months Recall prophy: 6 months Next Planned Visit: recall Karyn Ramos DDS 12/29/2022, 12:03 PM --End of Note-- documented in this encounter Plan of Treatment Scheduled Orders Name Type Priority Associated Diagnoses Order Schedule PROPHYLAXIS-ADULT RECALL Dental Procedures Routine 1 Occurrences starting 12/29/2022 PERIODIC ORAL EVALUATION Dental Procedures Routine 1 Occurrences starting 12/29/2022 [id number] Dental Procedures Routine 1 Occurrences starting 12/29/2022 documented as of this encounter Procedures Procedure Name Priority Date/Time Associated Diagnosis Comments PERIODIC ORAL EVALUATION Routine 12/29/2022 11:00 AM CDT Localized chronic slight periodontitis PROPHYLAXIS-ADULT RECALL Routine 12/29/2022 11:00 AM CDT Localized chronic slight periodontitis documented in this encounter Visit Diagnoses Diagnosis Localized chronic slight periodontitis- Primary Loose Dental [place] (finding) Vertical fracture of root of tooth documented in this encounter Care Teams Environmental Health Safety Manager Relationship Specialty [place] [address] [place] [address] PCP - General Family Practice 03/25/13 documented as of this encounter
--- OUTSIDE RECORDS SUMMARY | 2023-05-19 05:48 | XMS_ITS | Encounter Summary ---
Author Name Unknown Organization [facility] Address [address] [place] [address] Care Team Providers Care Can Patcher Name Role Phone Kristine Brown MD Primary Care Provider [phone] Encounter Details Date Type Department Care Team Description 09/29/2009 Correspondence External to External, [place] [address] MED HX AND MEDICATIONS Social History Tobacco Use Types Packs/Day Years Used Date Smoking Tobacco: Never Assessed Sex and Gender Information Value Date Recorded Sex Assigned at Not on file Gender Identity Not on file Sexual Orientation Not on file documented as of this encounter Progress Notes * External, Provider - 09/29/2009 12:00 AM CDT L [employer] [place] documented in this encounter Plan of Treatment Not on file documented as of this encounter Visit Diagnoses Not on filedocumented in this encounter Care Teams Can Patcher Relationship Specialty [place] [address] [place] [address] PCP - General Family Practice 03/25/13 documented as of this encounter
--- OUTSIDE RECORDS SUMMARY | 2023-05-19 05:48 | XMS_ITS | Encounter Summary ---
Author Name Unknown Organization [facility] Address [address] [address] Care Team Providers Care Tip Inserter Name Role Phone Kristine Brown MD Primary Care Provider [phone] Reason for Visit * Reason Comments [facility] Muse prep # 1 2 Encounter Details Date Type Department Care Team Description 10/17/2022 1:50 PM CDT Office Visit [facility] [address] [place], [place] [id number] Brenna Reyes, DDReed [address] [place] [address] [facility] (Muse prep # 12) Social History Tobacco Use Types Packs/Day Years Used Date Smoking Tobacco: Former Cigarettes 1 9 0 04/24/1962 - 04/24/1971 Smokeless Tobacco: Never Alcohol Use Standard Drinks/Week Comments Yes 4.2 (1 standard drink = 0.6 oz p ure alcohol) occ Sex and Gender Information Value Date Recorded Sex Assigned at Not on file Gender Identity Not on file Sexual Orientation Not on file documented as of this encounter Progress Notes * Brenna Reyes DDS - 10/17/2022 1:50 PM CDT DENTAL VISIT NOTE Subjective Reason for Visit/Chief Complaint: Khanh is a 77 y.o. male who presents for [facility] (Muse prep # 12) Chief Complaint: No CC PRE-MEDICATION: Patient states they took 4 Amoxicillin prior to dental treatment as prescribed. Objective/Assessment Chart Review: The following information was reviewed with the patient: Medical history, Dental history, Problem list, Periodontal charting, and Radiographs. RADIOGRAPHIC INTERPRETATION: #12 Previous RCT DIAGNOSIS: Defective dental jewish (primary encounter diagnosis) PROGNOSIS: #12 Favorable Plan Treatment Discussion: I discussed the Dental findings, Prognosis, Treatment options, Risks and complications associated with procedure, and Billing/Treatment estimate with patient. All questions answered and the patient gave informed consent to proceed with dental treatment/services. Procedural Pause: Patient identity verified: Yes Treatment plan/site verified with the patient: Yes Instruments/equipment verified: Yes Any medication/allergy contraindications: No Completed Procedures: ANESTHESIA: Topical with 20% benzocaine 1.0 carpules 2% lidocaine with 1:100,000 epinephrine was administered with infiltration in #12 No adverse side effects observed. Anesthesia was administered by Brenna Reyes DDS CROWN BUILD-UP - #12: Prepared with complete caries removal and complete removal of the existing jewish Isolated area with high speed suction, cotton rolls, and a cheek guard Posts/Pins: N/A Bonding Cavity conditioner Build-up made with glass ionomer material : Shade: A2 Verified occlusion, contacts, margins, aesthetics, and cement removal Post-Op Instructions: Patient was advised of normal post-operative instructions, potential for post-operative sensitivity, and the need to exercise care because of the risk of fracture 600 mg Ibuprofen and 1000 mg Acetaminophen at six hour intervals. Advised not to take more than 2400 mg of Ibuprofen or 3000 mg of Acetaminophen in a 24-hour period CROWN PREP, #12: Initial placement Prepped tooth presents with no fracture noted Preoperative radiograph: Reviewed Isolated area with high speed suction, cotton rolls, a cheek guard, and retraction cord with chemical hemostatic agent # 00 and # 01 cords placed Applied Cavity conditioner Triple tray and Separate bite registration impression made with polyvinyl siloxane material : Shade: 2M2 Octavia 3 D master shade guide genie light body and Imprint III heavy body used for impression and blue mousse used for bite registration Temporary crown made with custom material : Seated with non-eugenol temp sung used Verified occlusion, contacts, margins, aesthetics, and cement removal POST-OP INSTRUCTIONS: Patient was advised of normal post-operative instructions, potential for post-operative sensitivity, and the need to exercise care because of the risk of fracture 600 mg Ibuprofen and 1000 mg Acetaminophen at six hour intervals. Advised not to take more than 2400 mg of Ibuprofen or 3000 mg of Acetaminophen in a 24-hour period Care was assisted by CHRIS Caruso Next Planned Visit: Muse seat Brenna Reyes DDS 10/17/2022, 3:51 PM --End of Progress Note-- 9:50 AM documented in this encounter Plan of Treatment Not on file documented as of this encounter Procedures Procedure Name Priority Date/Time Associated Diagnosis Comments 12 CROWN BUILDUP INCLUDING PINS Routine 10/17/2022 1:50 PM CDT Defective dental jewish 12 PORCELAIN CROWN Routine 10/17/2022 1:50 PM CDT Defective dental jewish documented in this encounter Visit Diagnoses Diagnosis Defective dental jewish- Primary Unspecified unsatisfactory jewish of tooth documented in this encounter Care Teams Tip Inserter Relationship Specialty [place] [address] [place] [address] PCP - General Family Practice 03/25/13 documented as of this encounter
--- OUTSIDE RECORDS SUMMARY | 2023-05-19 05:48 | XMS_ITS | Encounter Summary ---
Author Name Unknown Organization [facility] Address [address], [place] [address] Care Team Providers Care Early Childhood Associate Name Role Phone Kristine Brown MD Primary Care Provider [phone] Reason for Visit * Reason Comments [facility] Blanca seat 12 Encounter Details Date Type Department Care Team Description 10/31/2022 1:50 PM CDT Office Visit [facility] [address] [place], [place] [id number] Brenna Reyes, DDS [address] [place] [address] [facility] (Blanca seat 12) Social History Tobacco Use Types Packs/Day [...] Progress Notes * Brenna Reyes DDS - 10/31/2022 1:50 PM CDT DENTAL VISIT NOTE Subjective Reason for Visit/Chief Complaint: Khahn is a 77 y.o. male who presents for [facility] (Blanca seat ) Chief Complaint: No CC PRE-MEDICATION: Patient states they took 4 - 500 mg tabs of Amoxicillin 30 to 60 minutes prior to dental treatment as prescribed. Objective/Assessment Chart Review: The following information was reviewed with the patient: Medical history, Dental history, Problem list, Periodontal charting, and Radiographs. RADIOGRAPHIC INTERPRETATION: #12 Normal DIAGNOSIS: Defective dental church (primary encounter diagnosis) Weakened cusp of tooth due to undermined enamel Full church of crown of tooth needed due to previous endodontic treatment PROGNOSIS: #12 Favorable Plan Treatment Discussion: I discussed the Dental findings, Prognosis, Treatment options, Risks and complications associated with procedure, and Billing/Treatment estimate with patient. All questions answered and the patient gave informed consent to proceed with dental treatment/services. Procedural Pause: Patient identity verified: Yes Treatment plan/site verified with the patient: Yes Instruments/equipment verified: Yes Any medication/allergy contraindications: No Completed Procedures: CROWN AND BRIDGE SEAT, #12: Blanca cementation with resin-modified glass ionomer Rely X luting plus Cleaned the crown with Ivoclean before cementation Radiographs made with church in place and reviewed Verified occlusion, contacts, margins, aesthetics, and cement removal POST-OP INSTRUCTIONS: Patient was advised of normal post-operative instructions, potential for post-operative sensitivity, and the need to exercise care because of the risk of fracture Care was assisted by CHRIS Seth 10/31/2022, 2:08 PM Next Planned Visit: Blanca #13 Brenna Reyes DDS 10/31/2022, 2:42 PM --End of Progress Note-- 1:58 PM documented in this encounter Plan of Treatment Not on file documented as of this encounter Procedures Procedure Name Priority Date/Time Associated Diagnosis Comments 12 CROWN SEAT Routine 10/31/2022 1:50 PM CDT Defective dental church Weakened cusp of tooth due to undermined enamel Full church of crown of tooth needed due to previous endodontic treatment documented in this encounter Visit Diagnoses Diagnosis Defective dental church- Primary Unspecified unsatisfactory church of tooth Weakened cusp of tooth due to undermined enamel Full church of crown of tooth needed due to previous endodontic treatment documented in this encounter Care Teams Early Childhood Associate Relationship Specialty [place] [address] [place] [address] PCP - General Family Practice 03/25/13 documented as of this encounter
--- OUTSIDE RECORDS SUMMARY | 2023-05-19 05:48 | XMS_ITS | Encounter Summary ---
Author Name Unknown Organization [facility] Address [address], [place] [address] Care Team Providers Care Abstract Clerk Name Role Phone Kristine Brown MD Primary Care Provider Encounter Details Date Type Department Care Team Description 04/18/2016 Refill Order [facility] [address] [place] [address] [place] [address] [place] [address] Social History Tobacco Use Types Packs/Day Years Used Date Smoking Tobacco: Former Cigarettes 1 9 0 04/24/1962 - 04/24/1971 Smokeless Tobacco: Never Alcohol Use Standard Drinks/Week Comments Yes 4.2 (1 standard drink = 0.6 oz p ure alcohol) Sex and Gender Information Value Date Recorded Sex Assigned at Not on file Gender Identity Not on file Sexual Orientation Not on file documented as of this encounter Nursing Notes * Charlene Ortega CMA - 05/05/2016 6:11 PM CST Pt notified. Charlene Ortega CMA 05/05/2016, 6:11 PM PAPER PRINTER documented in this encounter Plan of Treatment Not on file documented as of this encounter Visit Diagnoses Diagnosis Encounter for long-term (current) use of medications- Primary Encounter for long-term (current) use of other medications documented in this encounter Care Teams Abstract Clerk Relationship Specialty [place] [address] [place] [address] PCP - General Family Practice 03/25/13 documented as of this encounter
--- OUTSIDE RECORDS SUMMARY | 2023-05-19 05:48 | XMS_ITS | Clinical Summary ---
Author Name Unknown Organization [facility] Address [place], [place] [address] Care Team Providers Care Utility Forester Name Role Phone Miguel Dowling MD Primary Care Provider [phone] Allergies Active Allergy Reactions Criticality Noted Date Comments Cefadroxil Other - Describe In Comment Field 06/02/2021 Bloody diarrhea Ciprofloxacin Rash Medium 04/01/2022 Pt had reaction to Cipro IV in Preop area - w/ red streak going up arm. Hydrochlorothiazide Gout, Exacerbation 12/11/19 16 Metoprolol Other - Describe In Comment Field 03/12/2018 fatigue Oxycodone Other - Describe In Comment Field 11/09/2011 Patient refuses to take it due to family addiction issues. Medications Medication Sig Dispensed Refills Start Date End Date Status amLODIPine (NORVASC) 10 mg tablet Take 0.5-1 Tablets by mouth once daily. 0 04/10/2021 Active allopurinoL (ZYLOPRIM) 300 mg tablet Take 300 mg by mouth once daily. 0 05/12/2021 Active lisinopriL (PRINIVIL; ZESTRIL) 40 mg tablet Take 40 mg by mouth once daily. 0 01/07/2021 Active enoxaparin (LOVENOX) 40 mg/0.4 mL injectionIndication s:Rectal cancer (HC) Inject 0.4 mL (40 mg) subcutaneous once daily. 10.4 mL 0 04/03/2022 Active Active Problems Problem Noted Date Diagnosed Date Paroxysmal atrial fibrillation 03/31/2022 Rectal cancer 03/31/2022 Polycythemia 03/31/2022 Overview: Going back at least as far as 2014. No workup. Hypertension 03/31/2022 Gout 03/31/2022 Macular degeneration 03/31/2022 Obesity (BMI 30.0-34.9) 03/31/2022 REBECCA (obstructive sleep apnea) 03/31/2022 Prediabetes 03/31/2022 Encounters Date Type Department Care Team Description 05/12/2023 8:30 AM COTTON CLASSER Office Visit [facility] [address] [address] Rolando Singh MD Arrived from Last 3 Months Immunizations Name Administration Dates Next Due COVID-19 vaccine ([employer] 30mcg/0.3mL) KALINA Aponte 06/22/2020,05/29/2020 Social History Tobacco Use Types Packs/Day Years Used Date Smoking Tobacco: Former Cigarettes Q uit: 1972 Smokeless Tobacco: Never Comments:50 years ago Alcohol Use Standard Drinks/Week Comments Yes 2 (1 standard drink = 0.6 oz pur e alcohol) Social Connections Answer Date Recorded Frequency of Communication with Friends and Fami ly Not on file 05/13/2022 Sex and Gender Information Value Date Recorded Sex Assigned at Not on file Gender Identity Not on file Sexual Orientation Not on file Obstetrics History Last Filed Vital Signs Vital Sign Reading Time Taken Comments Blood Pressure 142/78 04/03/2022 7:48 AM COTTON CLASSER Pulse 105 04/03/2022 7:48 AM COTTON CLASSER Temperature 37.1 ??C (98.7 ??F) 04/03/2022 7:48 AM CS T Respiratory Rate 18 04/03/2022 7:48 AM COTTON CLASSER Oxygen Saturation 92% 04/03/2022 7:48 AM COTTON CLASSER Inhaled Oxygen Concentration - - Weight 106.3 kg (234 lb 5.6 oz) 022 11:00 AM COTTON CLASSER Height 180.3 cm (5' 11) 03/31/2022 11: 30 AM COTTON CLASSER Body Mass Index 32.69 03/31/2022 11:30 AM COTTON CLASSER Plan of Treatment Health Maintenance Due Date Last Done Comments Tdap 1958 Depression screening for age 12+ 1959 BMI (ht and wt on same day) for age 18+ 1965 Hepatitis C screening for age 18-79 1965 Tetanus booster 1967 Zoster (shingles) series for age 50+ (1 of 2) 1997 Medicare Wellness for age 65+ 01/25/2012 Pneumococcal series for age 65+ (1 of 1 - PCV) 01/25/2012 COVID-19 vaccine series ( season) 2022 06/22/2020, 05/29/2020 Influenza for age 65+ 12/23/2022 Advance Directives Latest Code Status on File Code Status Date Activated Date Inactivated Comments Full Code 03/31/2022 10:50 AM 04/03/2022 6:36 PM Question Answer Comments Code Status Discussion: Reviewed Preferences Care Teams Utility Forester Relationship Specialty Start Date End Date Miguel Dowling MD [address] [place] [address] PCP - General Family Practice 01/21/21
== END 2023-05-18 08:31 | disposition home or self-care (01) ==
LOC: NFLDREF 05-19 05:46
PROVIDERS: PCP Family Medicine; Referring Provider Family Medicine; Visit Provider Family Medicine
DX: R97.20 Elevated prostate specific antigen [PSA] (principal); Z13.220 Encounter for screening for lipoid disorders
CPT/HCPCS: 80061; G0103

== ENCOUNTER 2023-06-14 10:05 | Outpatient (CLI) | payer OTHER, SELFPAY ==
--- OUTSIDE RECORDS SUMMARY | 2023-06-14 10:10 | XMS_ITS | Encounter Summary ---
Author Name Unknown Organization [facility] Address [address] [place] [address] Care Team Providers Care Community Support Associate Name Role Phone Kristine Brown MD Primary Care Provider [phone] Encounter Details Date Type Department Care Team (Late st Contact Info) Description 09/29/2009 Correspondence External to External, [place] [address] MED HX AND MEDICATIONS Social History Tobacco Use Types Packs/Day Years Used Date Smoking Tobacco: Never Assessed Sex and Gender Information Value Date Recorded Sex Assigned at Not on file Gender Identity Not on file Sexual Orientation Not on file documented as of this encounter Progress Notes * External, Provider - 09/29/2009 12:00 AM CDT CASE MANAGER documented in this encounter Plan of Treatment Not on file documented as of this encounter Visit Diagnoses Not on filedocumented in this encounter Care Teams Community Support Associate Relationship Specialty [place] [address] [place] [address] PCP - General Family Practice 03/25/13 documented as of this encounter
--- OUTSIDE RECORDS SUMMARY | 2023-06-14 10:10 | XMS_ITS | Clinical Summary ---
Author Name Unknown Organization [facility] Address [address] [place] [address] Care Team Providers Care Neon Sign Worker Name Role Phone Kristine Brown MD Primary Care Provider [phone] Source Comments You are receiving this document [...] for each transition of care or referral. [facility] Allergies Active Allergy Reactions Criticality Noted Date Comments Cefadroxil Other, see comments 06/02/2021 Bloody diarrhea Oxycodone Other, see comments 11/09/2011 Patient refuses to take it due to family addiction issues. Medications Medication Sig Dispensed Refills Start Date End Date Status Multiple Vitamins-Iron (MULTIVITAMIN/IRON OR) Active amLODIPine (NORVASC) 10 MG tablet Take [...] 1 TABLET BY MOUTH DAILY. 90 Tab 08/18/2017 Active tamsulosin (FLOMAX) 0.4 MG CAPS capsule 11/26/2019 Activ e amoxicillin (AMOXIL) 500 MG capsule Take 2 Capsules (1,000 mg) by mouth two times a day. 02/10/2022 Active GAVILYTE-G 236 g oral solution Take by mouth. 01/15/2022 Active allopurinol (ZYLOPRIM) 300 MG tablet Take 1 Tablet (300 mg) by mouth daily. Active amLODIPine (NORVASC) 10 MG tablet Take 1 Tablet (10 mg) by mouth daily. Active Active Problems Problem Noted Date Diagnosed Date Prediabetes 02/16/2015 History of basal cell cancer 01/16/2015 HTN (hypertension) 04/09/2013 Overview: 11/06/15 Increase: Amlodipine to 10 mg. Madyson Epperson RN 11/27/2015, 4:49 PM ; HTN (hypertension) ([facility]) Nurse managed Immunizations Name Administration Dates [...] DT Respiratory Rate 14 05/19/2016 9:41 AM FAMILY PRESERVATION WORKER Oxygen Saturation - - Inhaled Oxygen Concentration - - Weight 108 kg (238 lb) 07/26/2017 8:48 AM CDT Height 182.9 cm (6') 2017 2:30 PM CDT Body Mass Index 32.28 2017 2:30 PM CDT Plan of Treatment Health Maintenance Due Date Last Done Comments Hep C Screening (Preventive Services) 1945 Medicare Annual Wellness Visit 1945 Zoster/Shingles (1 of 2) 1997 Pneumococcal 65+ Yrs (1 - PCV) 01/25/2012 DTaP/Tdap/Td (2 - Tdap) 11/30/2022 11/30/2012 COVID-19 Vaccine (3 - 2022-24 season) 2022 06/22/2020, 05/29/2020 Influenza (#1) 2022 01/23/2016 Cholesterol Discontinued 01/30/2015, [...] Procedure Name Priority Date/Time Associated Diagnosis Comments LIPID PANEL & DIRECT LDL (IF NEEDED) Routine 01/30/2015 7:35 AM CDT Essential hypertension from Last 3 Months or Most Recently Relevant to Health Maintenance Results * LIPID PANEL AND DIRECT LDL(IF NEEDED) (01/30/2015 7:35 AM CDT) Hours Fasting 12 hours [facility] Cholesterol 164 0 - 199 mg/dl [facility] Triglyceride 79 0 - 149 mg/dl [facility] HDL 42 >40 mg/dl [facility] LDL, Calc. 106 0 - 129 mg/dl [facility] Non HDL Chol, Calc 122 mg/dl [facility] 01/30/2015 7:35 AM CDT 01/30/2015 7:46 AM CDT Narrative [facility] - 01/30/2015 12:26 PM CDT Performed at [facility], [address] [place] [id number] Kristine Brown MD LAB_[facility] [phone] from Last 3 Months or Most Recently Relevant to Health Maintenance Care Teams Neon Sign Worker Relationship Specialty [place] [address] [place] [address] PCP - General Family Practice 03/25/13
--- OUTSIDE RECORDS SUMMARY | 2023-06-14 10:10 | XMS_ITS | Encounter Summary ---
Author Name Unknown Organization [facility] Address [address], [place] [address] Care Team Providers Care Watch Electrician Name Role Phone Kristine Brown MD Primary Care Provider [phone] Reason for Visit * Reason Comments Dental Hygiene No cc Encounter Details Date Type Department Care Team (Late st Contact Info) Description 12/29/2022 11:00 AM CDT Office Visit [facility] [address] [id number] [facility] [id number] [place] [address] Dental Hygiene (No cc) Social History Tobacco [...] Patient Instructions * Patient Instructions* Leanna Easton RDH - 12/29/2022 11:00 AM CDT Your next [...] agreement with Karyn Ramos DDS (License #: [id number]) PROCEDURAL PAUSE: Patient identity verified: Yes Treatment [...] Dental Procedures Routine 1 Occurrences starting 12/29/2022 [id number] Dental Procedures Routine 1 Occurrences starting 12/29/2022 documented as of this encounter Procedures Procedure Name Priority Date/Time Associated Diagnosis Comments PERIODIC ORAL EVALUATION Routine 12/29/2022 11:00 AM CDT Localized chronic slight periodontitis PROPHYLAXIS-ADULT RECALL Routine 12/29/2022 11:00 AM CDT Localized chronic slight periodontitis documented in this encounter Visit Diagnoses Diagnosis Localized chronic slight periodontitis- Primary Loose Dental Point Possession (finding) Vertical fracture of root of tooth documented in this encounter Care Teams Watch Electrician Relationship Specialty [place] [address] [place] [address] PCP - General Family Practice 03/25/13 documented as of this encounter
--- OUTSIDE RECORDS SUMMARY | 2023-06-14 10:10 | XMS_ITS | Clinical Summary ---
Author Name Unknown Organization [facility] Address [place], [place] [address] Care Team Providers Care Didactic Program In Dietetics Director Name Role Phone Miguel Dowling MD Primary Care Provider [phone] Allergies Active Allergy Reactions Criticality Noted Date [...] Department Care Team Description 05/12/2023 8:30 AM SPINNERET PERSON Office Visit [facility] & [address] [address] Rolando Singh MD from Last 3 Months Immunizations Name Administration Dates Next Due COVID-19 vaccine ([employer] 30mcg/0.3mL) KALINA Aponte 06/22/2020,05/29/2020 Social History Tobacco [...] Comments Blood Pressure 142/78 04/03/2022 7:48 AM SPINNERET PERSON Pulse 105 04/03/2022 7:48 AM SPINNERET PERSON Temperature 37.1 ??C (98.7 ??F) 04/03/2022 7:48 AM CS T Respiratory Rate 18 04/03/2022 7:48 AM SPINNERET PERSON Oxygen Saturation 92% 04/03/2022 7:48 AM SPINNERET PERSON Inhaled Oxygen Concentration - - Weight 106.3 kg (234 lb 5.6 oz) 022 11:00 AM SPINNERET PERSON Height 180.3 cm (5' 11) 03/31/2022 11: 30 AM SPINNERET PERSON Body Mass Index 32.69 03/31/2022 11:30 AM SPINNERET PERSON Plan of Treatment Health Maintenance Due Date [...] Code Status Discussion: Reviewed Preferences Care Teams Didactic Program In Dietetics Director Relationship Specialty Start Date End Date Miguel Dowling MD [address] [place] [address] PCP - General Family Practice 01/21/21
--- OUTSIDE RECORDS SUMMARY | 2023-06-14 10:10 | XMS_ITS | Encounter Summary ---
Author Name Unknown Organization [facility] Address [address] [address] Care Team Providers Care Calker Name Role Phone Kristine Brown MD Primary Care Provider [phone] Encounter Details Date Type Department Care Team (Late st Contact Info) Description 04/18/2016 Refill Order [facility] [address] [place] [address] [place] [address] [place] [address] Social History Tobacco Use Types Packs/Day Years [...] 05/05/2016 6:11 PM CST Pt notified. Charlene Ortgea CMA 05/05/2016, 6:11 PM OCHEMISTRY PROFESSOR documented in this encounter Plan of Treatment Not on file documented as of this encounter Visit Diagnoses Diagnosis Encounter for long-term (current) use of medications- Primary Encounter for long-term (current) use of other medications documented in this encounter Care Teams Calker Relationship Specialty [place] [address] [place] [address] PCP - General Family Practice 03/25/13 documented as of this encounter
--- OUTSIDE RECORDS SUMMARY | 2023-06-14 10:10 | XMS_ITS | Encounter Summary ---
Author Name Unknown Organization [facility] Address [address] [place] [address] Care Team Providers Care Data Coder Operator Name Role Phone Kristine Brown MD Primary Care Provider [phone] Reason for Visit * Reason Comments [place] [facility] [place] Encounter Details Date Type Department Care Team (Late st Contact Info) Description 10/31/2022 1:50 PM CDT Office Visit [facility] [address] [id number] Brenna Reyes, DDS [id number] [place] [address] [place] [facility] ([place] 12) Social History Tobacco Use Types [...] a 77 y.o. male who presents for [place] [facility] ([place] ) Chief Complaint: No CC PRE-MEDICATION: Patient states they took 4 - 500 mg tabs of Amoxicillin 30 to 60 minutes prior to dental treatment as prescribed. Objective/Assessment Chart Review: The following information was reviewed with the patient: Medical history, Dental history, Problem list, Periodontal charting, and Radiographs. 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 cusp of tooth due to undermined enamel Full restorationist of crown of tooth needed due to [...] Completed Procedures: [place] SEAT, #12: [place] cementation with resin-modified glass ionomer Rely X luting plus Cleaned the crown with Ivoclean before cementation Radiographs made with restorationist in place and reviewed Verified occlusion, contacts, margins, aesthetics, and cement removal POST-OP INSTRUCTIONS: Patient was advised of normal post-operative instructions, potential for post-operative sensitivity, and the need to exercise care because of the risk of fracture Care was assisted by CHRIS Seth 10/31/2022, 2:08 PM Next Planned Visit: [place] #13 Brenna Reyes DDS 10/31/2022, 2:42 PM --End of Progress Note-- 1:58 PM documented in this encounter Plan of Treatment Not on file documented as of this encounter Procedures Procedure Name Priority Date/Time Associated Diagnosis Comments 12 CROWN SEAT Routine 10/31/2022 1:50 PM CDT Defective dental restorationist Weakened cusp of tooth due to undermined enamel Full restorationist of crown of tooth needed due to previous endodontic treatment documented in this encounter Visit Diagnoses Diagnosis Defective dental restorationist- Primary Unspecified unsatisfactory restorationist of tooth Weakened cusp of tooth due to undermined enamel Full restorationist of crown of tooth needed due to previous endodontic treatment documented in this encounter Care Teams Data Coder Operator Relationship Specialty [place] [address] [place] [address] PCP - General Family Practice 03/25/13 documented as of this encounter
--- OUTSIDE RECORDS SUMMARY | 2023-06-14 10:10 | XMS_ITS | Clinical Summary ---
Author Name Unknown Organization [facility] Address [address] [place] [address] Care Team Providers Care Release Engineer Name Role Phone Miguel Dowling MD Primary Care Provider [phone] Allergies No known active allergies Medications Medication [...] Comments Blood Pressure 91/72 03/29/2022 12:11 PM COMMODITIES REQUIREMENTS ANALYST Pulse 111 03/29/2022 12:21 PM COMMODITIES REQUIREMENTS ANALYST Temperature 36.6 ??C (97.9 ??F) 07/30/2011 6:27 PM CD T Respiratory Rate 25 03/29/2022 12:21 PM COMMODITIES REQUIREMENTS ANALYST Oxygen Saturation 92% 03/29/2022 12:16 PM COMMODITIES REQUIREMENTS ANALYST Inhaled Oxygen Concentration - - Weight 108.9 kg (240 lb) 03/29/2022 11:22 AM COMMODITIES REQUIREMENTS ANALYST Height 180.3 cm (5' 11) 03/29/2022 11:22 AM COMMODITIES REQUIREMENTS ANALYST Body Mass Index 33.47 03/29/2022 11:22 AM COMMODITIES REQUIREMENTS ANALYST Plan of Treatment Health Maintenance Due Date Last Done Comments ADVANCE CARE PLANNING 1945 ANNUAL REVIEW OF HM ORDERS 1945 GLUCOSE 1947 HEPATITIS C SCREENING 1965 LIPID 1987 LUNG CANCER SCREENING 1997 RSV VACCINE ( [...] this topic sDNA (Cologuard) Discontinued Care Teams Release Engineer Relationship Specialty Start Date End Date Miguel Dowling MD PCP - General Family Medicine 03/07/22
--- OUTSIDE RECORDS SUMMARY | 2023-06-14 10:10 | XMS_ITS | Encounter Summary ---
Author Name Unknown Organization [facility] Address [address] [place] [address] Care Team Providers Care Postal Worker Name Role Phone Kristine Brown MD Primary Care Provider [phone] Reason for Visit * Reason Comments [place] [facility] [place] # 1 2 Encounter Details Date Type Department Care Team (Late st Contact Info) Description 10/17/2022 1:50 PM CDT Office Visit [facility] [address] [phone] Brenna Reyes, DDS [phone] [place] [address] [place] [facility] ([place] # 12) Social History Tobacco Use [...] a 77 y.o. male who presents for [place] [facility] ([place] prep # 12) Chief Complaint: No CC PRE-MEDICATION: Patient states they took 4 Amoxicillin prior to dental treatment as prescribed. Objective/Assessment Chart Review: The following information was reviewed with the patient: Medical history, Dental history, Problem list, Periodontal charting, and Radiographs. RADIOGRAPHIC INTERPRETATION: #12 Previous RCT DIAGNOSIS: Defective dental holiness (primary encounter diagnosis) PROGNOSIS: #12 Favorable Plan [...] removal and complete removal of the existing holiness Isolated area with high speed suction, cotton [...] assisted by CHRIS Caruso Next Planned Visit: [place] Brenna Reyes DDS 10/17/2022, 3:51 PM --End of Progress Note-- 9:50 AM documented in this encounter Plan of Treatment Not on file documented as of this encounter Procedures Procedure Name Priority Date/Time Associated Diagnosis Comments 12 CROWN BUILDUP INCLUDING PINS Routine 10/17/2022 1:50 PM CDT Defective dental holiness 12 PORCELAIN CROWN Routine 10/17/2022 1:50 PM CDT Defective dental holiness documented in this encounter Visit Diagnoses Diagnosis Defective dental holiness- Primary Unspecified unsatisfactory holiness of tooth documented in this encounter Care Teams Postal Worker Relationship Specialty [place] [address] [place] [address] PCP - General Family Practice 03/25/13 documented as of this encounter
--- OUTSIDE RECORDS SUMMARY | 2023-06-14 10:10 | XMS_ITS | Referral Summary ---
Author Name Unknown Organization [facility] Address [address] [place] [address] Care Team Providers Care Senior Auditor Name Role Phone Miguel Dowling MD Primary Care Provider [phone] Allergies No known active allergies Medications Medication [...] Comments Blood Pressure 91/72 03/29/2022 12:11 PM CHARGING PLUG PLACER Pulse 111 03/29/2022 12:21 PM CHARGING PLUG PLACER Temperature 36.6 ??C (97.9 ??F) 07/30/2011 6:27 PM CD T Respiratory Rate 25 03/29/2022 12:21 PM CHARGING PLUG PLACER Oxygen Saturation 92% 03/29/2022 12:16 PM CHARGING PLUG PLACER Inhaled Oxygen Concentration - - Weight 108.9 kg (240 lb) 03/29/2022 11:22 AM CHARGING PLUG PLACER Height 180.3 cm (5' 11) 03/29/2022 11:22 AM CHARGING PLUG PLACER Body Mass Index 33.47 03/29/2022 11:22 AM CHARGING PLUG PLACER Plan of Treatment Not on file Care Teams Senior Auditor Relationship Specialty Start Date End Date Miguel Dowling MD PCP - General Family Medicine 03/07/22
--- OUTSIDE RECORDS SUMMARY | 2023-06-14 10:10 | XMS_ITS | Continuity of Care Document ---
Author Name [facility] Organization [facility] Care Team Providers Care Sales Development Representative Name Role Phone [facility] Unavailable Unavailable Problems Combined list of problems from Department of [facility] and Veterans Affairs facilities. It does not include entries that were removed or entered in error. Problem Status Onset Date Problem Type Date of Resolution Comments Source Basal cell carcinoma of skin Active Condition Mar 17, 2017 Entered By: ALEJANDRO REN Comment: 03.15.2017 R Nose. [facility] Benign essential hypertension (SNOMED CT 6575833) Active Condition [facility] Elevated PSA Active Condition [facility] Erythrocytosis Active Condition [facility] Gout Active Condition [facility] H/O: vasectomy Active Condition [facility] Health Maintenance (ICD-9-CM V65.9) [facility] History of tonsillectomy Active Condition [facility] Hyperlipidemia Active Condition [facility] Obstructive sleep apnea of adult Active Condition [facility] Diagnosis: ICD-10-CM I10 Essential (primary) hypertension Active Diagnosis [facility] Medications Combined list of outpatient medications from [facility] and [facility] facilities.Medications provided include 1) outpatient medications from the last 15 months, and 2) patient-reported medications. Medication Details Route Status Patient Instructions Prescription Expires Prescription Number Last Dispense Date Ordering Provider Order Date Source ALLOPURINOL TAB TAKE BY MOUTH ORALLY ACTIVE Wild MORAN 2016 [facility] AMLODIPINE BESYLATE 10MG TAB TAKE ONE-HALF TABLET BY MOUTH ORALLY ACTIVE Wild MORAN 2015 [facility] ASPIRIN 325MG TAB TAKE ONE TABLET BY MOUTH EVERY DAY ORALLY ACTIVE DANIEL JOE 2009 [facility] LISINOPRIL 40MG TAB TAKE ONE TABLET BY MOUTH EVERY DAY ORALLY ACTIVE Wild MORAN 2015 [facility] MULTIVITAMI NS CAP/TAB TAKE ONE TABLET BY MOUTH EVERY DAY ORALLY ACTIVE Wild MORAN 2015 [facility] NAPROXEN 250MG TAB TAKE ONE-HALF TABLET BY MOUTH PRN ORALLY ACTIVE DANIEL JOE 2009 [facility] Allergies, Adverse Reactions, Alerts Combined list of allergies from Department of Defense and Veterans Affairs facilities. It does not include entries that were removed or entered in error. Substance Category Reaction Severity Reaction type Status Date Reported Comments Source CEFADROXIL Propensity to adverse reactions to drug (finding) Bleeding active 2 [facility] HCTZ HYDROCHLOROTH IAZIDE Propensity to adverse reactions to drug (finding) Gout active 6 [facility] METOPROLOL Propensity to adverse reactions to drug (finding) Fatigue active 8 [facility] Immunizations Combined list of available immunizations from the Department of [facility] and Veterans [facility] facilities. Immunization Series Date Given Administered By Site Reaction Lot Number CVX Code Drug Gluing Machine Operator Status Comments Source COVID-19 ([employer]), MRNA, LNP-S, PF, 30 MCG/0.3 ML DOSE 2 2020 208 complet ed PFR; [id number]; 1 [facility] COVID-19 (PFIZER), MRNA, LNP-S, PF, 30 MCG/0.3 ML DOSE 1 2020 208 complet ed PFR; [id number]; 1 [facility] PNEUMOCOCCAL POLYSACCHARID E PPV23 2017 33 complet ed [employer],[id number] 20 [facility] TDAP 2017 115 complet ed sanofi pastuer [id number], [facility] PNEUMOCOCCAL CONJUGATE PCV 13 2015 133 complet ed [employer],M79 321,12/08 [facility] ZOSTER LIVE 2015 121 complet ed [employer],[id number] [id number] 16 [facility] Results Combined list of recent chemistry, hematology [...] May 29, 2020 05:02 AM Reporting Lab: [facility] [address] Performing Lab: [facility] [address] [place] [facility] AST/SGOT ASPARTATE AMINOTRANSF ERASE [ENZYMATIC ACTIVITY/VO LUME] IN SERUM OR PLASMA 17 <34 - 34 01/11 Specimen Type: PLASMA No comment entered. Ordering Provider: ROMY MORAN Report Released Date/Time: May 29, 2020 05:02 AM Reporting Lab: [facility] [address] Performing Lab: [facility] [address] [place] [facility] CBC LEUKOCYTES [#/VOLUME] IN BLOOD BY AUTOMATED COUNT 5.01 4.0 - 11.0 01/11 Specimen Type: BLOOD No comment entered. Ordering Provider: ROMY MORAN Report Released Date/Time: May 29, 2020 05:02 AM Reporting Lab: [facility] [address] Performing Lab: [facility] [address] [place] [facility] CBC ERYTHROCYTE S [#/VOLUME] IN BLOOD BY AUTOMATED COUNT 6.38 4.6 - 6.2 01/11 H Specimen Type: BLOOD No comment entered. Ordering Provider: ROMY MORAN Report Released Date/Time: May 29, 2020 05:02 AM Reporting Lab: [facility] [address] Performing Lab: [facility] [address] [place] [facility] CBC HEMOGLOBIN [MASS/VOLUM E] IN BLOOD 19.1 13.5 - 17.9 01/11 H Specimen Type: BLOOD No comment entered. Ordering Provider: ROMY MORAN Report Released Date/Time: May 29, 2020 05:02 AM Reporting Lab: [facility] [address] Performing Lab: [facility] [address] [place] [facility] CBC HEMATOCRIT [VOLUME FRACTION] OF BLOOD BY AUTOMATED COUNT 56.0 41 - 54 01/11 H Specimen Type: BLOOD No comment entered. Ordering Provider: ROMY MORAN Report Released Date/Time: May 29, 2020 05:02 AM Reporting Lab: [facility] [address] Performing Lab: [facility] [address] [place] [facility] CBC MCV [ENTITIC VOLUME] BY AUTOMATED COUNT 87.8 80 - 100 01/11 Specimen Type: BLOOD No comment entered. Ordering Provider: ROMY MORAN Report Released Date/Time: May 29, 2020 05:02 AM Reporting Lab: [facility] [address] Performing Lab: [facility] [address] [place] [facility] CBC MCH [ENTITIC MASS] BY AUTOMATED COUNT 29.9 27 - 33 01/11 Specimen Type: BLOOD No comment entered. Ordering Provider: ROMY MORAN Report Released Date/Time: May 29, 2020 05:02 AM Reporting Lab: [facility] [address] Performing Lab: [facility] [address] [place] [facility] CBC MCHC [MASS/VOLUM E] BY AUTOMATED COUNT 34.1 32.0 - 37.5 01/11 Specimen Type: BLOOD No comment entered. Ordering Provider: ROMY MORAN Report Released Date/Time: May 29, 2020 05:02 AM Reporting Lab: [facility] [address] Performing Lab: [facility] [address] [place] [facility] CBC PLATELETS [#/VOLUME] IN BLOOD BY AUTOMATED COUNT 202 150 - 400 01/11 Specimen Type: BLOOD No comment entered. Ordering Provider: ROMY MORAN Report Released Date/Time: May 29, 2020 05:02 AM Reporting Lab: [facility] [address] Performing Lab: [facility] [address] [place] [facility] CBC PLATELET MEAN VOLUME [ENTITIC VOLUME] IN BLOOD BY AUTOMATED COUNT 8.9 7.4 - 10.4 01/11 Specimen Type: BLOOD No comment entered. Ordering Provider: ROMY MORAN Report Released Date/Time: May 29, 2020 05:02 AM Reporting Lab: [facility] [address] Performing Lab: [facility] [address] [place] [facility] CBC ERYTHROCYTE DISTRIBUTIO N WIDTH [RATIO] BY AUTOMATED COUNT 14.4 11.5 - 14.5 01/11 Specimen Type: BLOOD No comment entered. Ordering Provider: ROMY MORAN Report Released Date/Time: May 29, 2020 05:02 AM Reporting Lab: [facility] [address] Performing Lab: [facility] [address] [place] [facility] CREATININ E(INCLUDE S EGFR) CREATININE [MASS/VOLUM E] IN SERUM OR PLASMA 1.0 0.7 - 1.2 01/11 Specimen Type: PLASMA No comment entered. Ordering Provider: ROMY MORAN Report Released Date/Time: May 29, 2020 05:02 AM Reporting Lab: [facility] [address] Performing Lab: [facility] [address] [place] [facility] CREATININ E(INCLUDE S EGFR) GLOMERULAR FILTRATION RATE/1.73 SQ M.PREDICTED [VOLUME RATE/AREA] IN SERUM, PLASMA OR BLOOD BY CREATININE- BASED FORMULA (CKD-EPI) 79 60 01/11 Specimen Type: PLASMA No comment entered. Ordering Provider: ROMY MORAN Report Released Date/Time: May 29, 2020 05:02 AM Reporting Lab: [facility] [address] Performing Lab: [facility] [address] [place] [facility] ELECTROLY AMY/ANION GAP SODIUM [MOLES/VOLU ME] IN SERUM OR PLASMA 140 136 - 145 01/11 Specimen Type: PLASMA No comment entered. Ordering Provider: ROMY MORAN Report Released Date/Time: May 29, 2020 05:02 AM Reporting Lab: [facility] [address] Performing Lab: [facility] [address] [place] [facility] ELECTROLY AMY/ANION GAP POTASSIUM [MOLES/VOLU ME] IN SERUM OR PLASMA 4.3 3.5 - 5.1 01/11 Specimen Type: PLASMA No comment entered. Ordering Provider: ROMY MORAN Report Released Date/Time: May 29, 2020 05:02 AM Reporting Lab: [facility] [address] Performing Lab: [facility] [address] [place] [facility] ELECTROLY AMY/ANION GAP CHLORIDE [MOLES/VOLU ME] IN SERUM OR PLASMA 109 98 - 107 01/11 H Specimen Type: PLASMA No comment entered. Ordering Provider: ROMY MORAN Report Released Date/Time: May 29, 2020 05:02 AM Reporting Lab: [facility] [address] Performing Lab: [facility] [address] [place] [facility] ELECTROLY AMY/ANION GAP CARBON DIOXIDE, TOTAL [MOLES/VOLU ME] IN SERUM OR PLASMA 22 22 - 29 01/11 Specimen Type: PLASMA No comment entered. Ordering Provider: ROMY MORAN Report Released Date/Time: May 29, 2020 05:02 AM Reporting Lab: [facility] [address] Performing Lab: [facility] [address] [place] [facility] ELECTROLY AMY/ANION GAP ANION GAP IN SERUM OR PLASMA 9 5 - 15 01/11 Specimen Type: PLASMA No comment entered. Ordering Provider: ROMY MORAN Report Released Date/Time: May 29, 2020 05:02 AM Reporting Lab: [facility] [address] Performing Lab: [facility] [address] [place] [facility] GLUCOSE GLUCOSE [MASS/VOLUM E] IN SERUM OR PLASMA 101 70 - 100 01/11 H Specimen Type: PLASMA No comment entered. Ordering Provider: ROMY MORAN Report Released Date/Time: May 29, 2020 05:02 AM Reporting Lab: [facility] [address] Performing Lab: [facility] [address] [place] [facility] HEMOGLOBI N A1C HEMOGLOBIN A1C/HEMOGLO BIN.TOTAL IN [...] May 29, 2020 05:02 AM Reporting Lab: [facility] [address] Performing Lab: [facility] [address] [place] [facility] LIPID PANEL,NON -FASTING CHOLESTEROL [MASS/VOLUM E] IN SERUM OR PLASMA 168 <199 - 199 01/11 Specimen Type: PLASMA No comment entered. Ordering Provider: ROMY MORAN Report Released Date/Time: May 29, 2020 05:02 AM Reporting Lab: [facility] [address] Performing Lab: [facility] [address] [place] [facility] LIPID PANEL,NON -FASTING CHOLESTEROL IN HDL [MASS/VOLUM E] IN SERUM OR PLASMA 39 40 01/11 L Specimen Type: PLASMA No comment entered. Ordering Provider: ROMY MORAN Report Released Date/Time: May 29, 2020 05:02 AM Reporting Lab: [facility] [address] Performing Lab: [facility] [address] [place] [facility] LIPID PANEL,NON -FASTING CHOLESTEROL IN LDL [MASS/VOLUM E] IN SERUM OR PLASMA BY CALCULATION 98 <99 - 99 01/11 Specimen Type: PLASMA No comment entered. Ordering Provider: ROMY MORAN Report Released Date/Time: May 29, 2020 05:02 AM Reporting Lab: [facility] [address] Performing Lab: [facility] [address] [place] [facility] LIPID PANEL,NON -FASTING CHOLESTEROL IN VLDL [MASS/VOLUM E] IN SERUM OR PLASMA BY CALCULATION 31 <29 - 29 01/11 H Specimen Type: PLASMA No comment entered. Ordering Provider: ROMY MORAN Report Released Date/Time: May 29, 2020 05:02 AM Reporting Lab: [facility] [address] Performing Lab: [facility] [address] [place] [facility] LIPID PANEL,NON -FASTING CHOLESTEROL NON HDL [MASS/VOLUM E] IN SERUM OR PLASMA 129 <129 - 129 01/11 Specimen Type: PLASMA No comment entered. Ordering Provider: ROMY MORAN Report Released Date/Time: May 29, 2020 05:02 AM Reporting Lab: [facility] [address] Performing Lab: [facility] [address] [place] [facility] LIPID PANEL,NON -FASTING TRIGLYCERID E [MASS/VOLUM E] IN SERUM OR PLASMA 157 <149 - 149 01/11 H Specimen Type: PLASMA No comment entered. Ordering Provider: ROMY MORAN Report Released Date/Time: May 29, 2020 05:02 AM Reporting Lab: [facility] [address] Performing Lab: [facility] [address] [place] [facility] PSA PROSTATE SPECIFIC AG [MASS/VOLUM E] IN SERUM OR PLASMA 6.43 <4.00 - 4.00 01/11 H Specimen Type: SERUM No comment entered. Ordering Provider: ROMY MORAN Report Released Date/Time: May 29, 2020 05:02 AM Reporting Lab: [facility] [address] Performing Lab: [facility] [address] [place] [facility] TSH W/REFLEX TO FREE T4 THYROTROPIN [UNITS/VOLU ME] IN SERUM OR PLASMA 2.28 0.35 - 4.94 01/11 Specimen Type: PLASMA No comment entered. Ordering Provider: ROMY MORAN Report Released Date/Time: May 29, 2020 05:02 AM Reporting Lab: [facility] [address] Performing Lab: [facility] [address] [place] [facility] Encounters Combined list of: 1) Encounters from Department of Veterans Affairs facilities going back up to thelast 18 months. 2) Encounters from the Department of [facility] facilities going back up to 280 months. Location Location Details Encounter Type Encounter Number Reason For Visit Attending Provider ADM Date DC Date Status Disposition Source [place] [facility] Outpatient Encounter [id number] 01/03 [facility] [place] [facility] Outpatient Encounter [id number] LUISA,LA INE E 01/10 [facility] [place] [facility] OFFICE O/P EST MOD 30-39 MIN [id number] Diagnos is: ICD-10- CM I10 Essenti al (primar y) hyperte nsion<b r/> LUISA,LA INE E 01/11 [facility] [place] [facility] Outpatient Encounter [id number] 03/02 [facility] Social History Combined list of available smoking, tobacco, and other social history from Department of Defense and [facility] facilities. 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
[2023-06-14 12:46] LABS: Mononuclear WBC Body Fluid* 39 %; Polynuclear WBC Body Fluid* 61 %; RBC, Body Fluid* 79000 Cells/uL; WBC, Body Fluid* 727 Cells/uL
[2023-06-14 12:50] LABS: BF Clarity* Cloudy; BF Color Grossly Bloody; BF Total Volume* 12
== END 2023-06-14 10:06 | disposition home or self-care (01) ==
PROVIDERS: PCP Family Medicine; Visit Provider Orthopaedic Surgery
DX: B99.9 Unspecified infectious disease (principal)
CPT/HCPCS: 83518; 86140; 87075; 87205; 89051; 89060

== ENCOUNTER 2023-06-20 07:44 | Outpatient (CLI) | payer OTHER, SELFPAY ==
--- NOTE | 2023-06-20 08:00 | CT_ITS ---
Patient: HARPER IQBAL Facility:?[facility] RIS Patient ID:?[id number] Site Patient ID:?[id number]. Site :?[id number] Study:?CT-Chest/Abd/Pelvis 115CC ISOVUE 370 AND WATER PREP-06/20/2023 9:04:45 AM Ordering Physician:? Final Report: Indication: RECTOSIGMOID CANCER F/U Technique: CT Chest/Abd/Pelvis 115CC ISOVUE 370 AND WATER PREP Please note that all CT scans at this facility use dose modulation, iterative reconstruction, and/or weight-based dosing when appropriate to reduce radiation dose to as low as reasonably achievable. Comparison: 03/28/2023 Findings: In the chest, the visualized thyroid is normal. Stable upper limits of normal mediastinal and bilateral hilar lymph nodes. No intrinsic osseous lesion or acute fracture. No hiatal hernia. No pleural or pericardial effusion. Dependent areas of atelectasis/scarring again noted. Calcified nodule within the left upper lobe. No suspicious pulmonary nodule or mass. No infiltrate or edema. No pneumothorax. In the abdomen, there is no intrahepatic mass. No calcified gallstones. No biliary obstruction. The pancreas is unremarkable. Normal spleen. The adrenal glands are within normal limits. Exophytic cyst arising from the right kidney posteriorly is again noted. Simple cyst upper pole left kidney is unchanged. Atherosclerotic changes are present. Normal stomach and small bowel loops. No enlarged retroperitoneal lymph nodes. In the pelvis, the prostate is enlarged with mass effect upon the bladder. Bladder calcifications again noted. Calcification adjacent to the left UVJ is present. No hydroureter. Postop changes of partial colectomy. No bowel obstruction or free air. No free fluid or abscess. Normal inguinal and pelvic sidewall lymph nodes. Degenerative disc disease L2-3 with discogenic sclerosis. No vertebral body compression fracture. Impression: No evidence of metastatic disease. Chronic bladder stones. Please note that all CT scans at this facility use dose modulation, iterative reconstruction, and/or weight-based dosing when appropriate to reduce radiation dose to as low as reasonably achievable. Dictated by José Anaya MD @ 06/20/2023 10:23:05 AM Signed by:?José Anaya MD @06/20/2023 10:23:05 AM (Electronic Signature)
[2023-06-20 08:14] LABS: Basophils Percent Auto 0.2 % (0.0-3.0); Eosinophils Percent Auto 4.3 % (0.0-7.0); Hematocrit 57.2 % (37.0-53.0); Hemoglobin* 19.3 gm/dL (13.5-17.5); Immature Granulocytes Pct Auto 0.9 %; Lymphocytes Percent Auto 29.1 % (20-44); Mean Corpuscular HGB Conc 34 gm/dL (32-36); Mean Corpuscular Hemoglobin 30 pg (26-34); Mean Corpuscular Volume 90 fL (80-100); Monocytes Percent Auto 14.2 % (0.0-11.0); Neutrophils Percent Auto 51.3 % (42.0-72.0); Platelet Count* 169 K/uL (140-440); RDW Coefficient of Variation % 13.2 % (11.5-15.5); Red Blood Count 6.39 m/uL (4.30-5.90); White Blood Count* 4.37 K/uL (4.50-11.00)
[2023-06-20 08:20] LABS: Slide Review Reflex No
[2023-06-20 08:28] LABS: Creatinine* 0.9 mg/dL (0.5-1.5); Estimated Glomerular Filt Rate 89 ml/min
[2023-06-22 00:50] LABS: Carcinoembryonic Antigen 7.2 ng/mL
== END 2023-06-20 07:45 | disposition home or self-care (01) ==
LOC: CT 07:45
PROVIDERS: PCP Family Medicine; Visit Provider Internal Medicine Hematology & Oncology
DX: C19 Malignant neoplasm of rectosigmoid junction (principal); N21.0 Calculus in bladder
CPT/HCPCS: 36415; 71260; 74177; 82378; 82565; 85025; Q9967

== ENCOUNTER 2023-06-28 13:00 | Outpatient (RCR) | payer OTHER, SELFPAY ==
[2023-01-04 09:39] LABS: Basophils Percent Auto 0.5 % (0.0-3.0); Eosinophils Percent Auto 4.3 % (0.0-7.0); Hematocrit 58.6 % (37.0-53.0); Immature Granulocytes Pct Auto 0.7 %; Lymphocytes Percent Auto 26.8 % (20-44); Mean Corpuscular HGB Conc 34 gm/dL (32-36); Mean Corpuscular Hemoglobin 31 pg (26-34); Mean Corpuscular Volume 90 fL (80-100); Neutrophils Percent Auto 55.7 % (42.0-72.0); Platelet Count* 186 K/uL (140-440); RDW Coefficient of Variation % 12.9 % (11.5-15.5); Red Blood Count 6.55 m/uL (4.30-5.90); White Blood Count* 4.41 K/uL (4.50-11.00)
[2023-01-04 09:40] LABS: Albumin* 4.9 g/dL (3.3-5.0); Chloride* 105 mmol/L (96-114); Potassium* 4.7 mmol/L (3.6-5.1); Sodium* 140 mmol/L (135-149)
[2023-01-04 09:41] LABS: Slide Review Reflex No
[2023-01-04 09:42] LABS: Anion Gap 8 mEq/L (7-15); Bilirubin Total* 1.2 mg/dL (0.1-1.5); Carbon Dioxide* 27 mmol/L (20-32); Creatinine* 0.9 mg/dL (0.5-1.5); Estimated Glomerular Filt Rate 89 ml/min
[2023-01-04 09:43] LABS: Alanine Aminotransferase* 37 U/L (4-50); Alkaline Phosphatase* 66 U/L (40-150); Aspartate Amino Transferase* 34 U/L (12-35); Blood Urea Nitrogen* 18 mg/dL (7-30); Glucose* 137 mg/dL (60-115); Total Protein* 8.1 g/dL (6.0-8.3)
[2023-01-06 18:56] LABS: Carcinoembryonic Antigen 6.2 ng/mL
[2023-01-10 10:03] LABS: JAK2 Qual Mutation by PCR Not Detected; JAK2 Qual, Source Not Provided
== END 2023-07-03 23:59 | disposition home or self-care (01) ==
LOC: CCIC 13:00
PROVIDERS: PCP Family Medicine; Referring Provider Family Medicine; Visit Provider Internal Medicine Hematology & Oncology
DX: C19 Malignant neoplasm of rectosigmoid junction (principal); R97.20 Elevated prostate specific antigen [PSA]; D75.1 Secondary polycythemia
CPT/HCPCS: 36415; 80053; 81270; 82378; 82728; 85025; 99212; 99214; G0463

== ENCOUNTER 2023-11-06 13:56 | Outpatient (CLI) | payer OTHER, SELFPAY ==
--- OUTSIDE RECORDS SUMMARY | 2023-11-06 13:58 | XMS_ITS | Encounter Summary ---
Author Organization [facility] Address [address] [place] [address] Care Team Providers Care Blind Hanger Name Role Phone Unavailable Primary Care Provider Unavailabl e Reason for Referral * Outpatient (Routine) - Closed Specialty Diagnoses / Procedures Referred By Gaby mantilla Referred To Contact Diagnoses Lesion Parotid Gland Procedures US Parotid Submandibular Glands Anika Anthony M.D. [address] [place] [address] [facility] Referral ID Status Reason Start Date Expiration Date Visits Re quested Visits Authorized [id number] Closed 10/09/2023 10/08/2024 1 1 Reason for Visit * Outpatient (Routine) - Closed Specialty Diagnoses / Procedures Referred By Gaby mantilla Referred To Contact Diagnoses Lesion Parotid Gland Procedures US Parotid Submandibular Glands Anika Anthony M.D. [address] [place] [address] [facility] Referral ID Status Reason Start Date Expiration Date Visits Re quested Visits Authorized [id number] Closed 10/09/2023 10/08/2024 1 1 Encounter Details Date Type Department Care Team (Latest Contact Info) Description 10/25/2023 7:04 AM CDT - 10/25/2023 10:46 AM CDT Hospital Encounter Department of Radiology, [facility], in [place], [place] [address] [place] [address] Anika Anthony M.D. [address] [place] [phone] Lesion Parotid Gland Discharge Disposition: Home or Self Care Social History Tobacco Use Types Packs/Day Years Used Date Smoking Tobacco: Never Assessed Nutrition Answer Date Recorded Nutrition: EVOO Fat Source Unknown 05/09 Nutrition: Servings of Fruits/Vegetables per Day Not on file 05/09/2022 Dental Answer Date Recorded Dental: Regular Dentist Unknown 10/16/19 Sex and Gender Information Value Date Recorded Sex Assigned at Not on file Gender Identity Not on file Sexual Orientation Not on file documented as of this encounter Plan of Treatment Not on file documented as of this encounter Procedures Procedure Name Priority Date/Time Associated Diagnosis Comments US PAROTID SUBMANDIBULAR GLANDS RAD - Routine (most inpatients and all outpatients) 10/25/2023 7:45 AM CDT Lesion Parotid Gland documented in this encounter Results * US Parotid Submandibular Glands (10/25/2023 7:45 AM CDT) Anatomical Region Laterality Modality Head and Neck, Ultrasound RS T LOS, Ultrasound ARZ LOS, Neuroradiology FLA LOS Ultrasound Impressions 10/25/2023 7:42 AM CDT 1.6 cm hypoechoic lesion within the deep right parotid gland. Patient is scheduled for biopsy of this lesion later today. Narrative 10/25/2023 7:42 AM CDT EXAM: US PAROTID SUBMANDIBULAR GLANDS COMPARISON: Outside PET/CT 09/28/2023. FINDINGS: Ultrasound of the bilateral parotid and submandibular glands were performed. There is a 1.1 x 1.4 x 1.6 cm hypoechoic lesion within the deep right parotid gland, corresponding to the area of radiotracer uptake seen on outside PET/CT 09/28/2023. No definite color Doppler flow within this lesion. There is a a few normal- appearing lymph nodes within the upper left parotid gland. Procedure Note Rd Fabian M.D. - 10/25/2023 EXAM: US PAROTID SUBMANDIBULAR GLANDS COMPARISON: Outside PET/CT 09/28/2023. FINDINGS: Ultrasound of the bilateral parotid and submandibular glandswere performed. There is a 1.1 x 1.4 x 1.6 cm hypoechoic lesion within thedeep right parotid gland, corresponding to the area of radiotracer uptakeseen on outside PET/CT 09/28/2023. No definite color Doppler flow within this lesion. There is a a fewnormal- appearing lymph nodes within the upper left parotid gland. IMPRESSION: 1.6 cm hypoechoic lesion within the deep right parotid gland. Patient isscheduled for biopsy of this lesion later today. Anika EWING US PROCEDURES documented in this encounter Visit Diagnoses Diagnosis Lesion Parotid Gland documented in this encounter
--- OUTSIDE RECORDS SUMMARY | 2023-11-06 13:58 | XMS_ITS ---
Author Organization [facility] Address [address] [place] [address] Care Team Providers Care Calender Supervisor Name Role Phone Unavailable Unavailable Unavailable Surgery Details Not on file Complications Check Surgery Details section. Procedure Estimated Blood Loss Check Surgery Details section. Procedure Findings Check Surgery Details section. Procedure Specimens Taken Check Surgery Details section.
--- OUTSIDE RECORDS SUMMARY | 2023-11-06 13:58 | XMS_ITS | Continuity of Care Document ---
Author Name [facility] Organization [facility] Care Team Providers Care Tar Kettle Runner Name Role Phone [facility] Unavailable Unavailable Problems Combined list of problems from Department of [facility] and [facility] facilities. It does not include entries that were removed or entered in error. Problem Status Onset Date Problem Type Date of Resolution Comments Source Basal cell carcinoma of skin Active Condition Mar 17, 2017 Entered By: ALEJANDRO REN Comment: 03.15.2017 R Nose. [facility] Benign essential hypertension (SNOMED CT 4992137) Active Condition [facility] Elevated PSA Active Condition [facility] Erythrocytosis Active Condition [facility] Gout Active Condition [facility] H/O: vasectomy Active Condition [facility] Health Maintenance (ICD-9-CM V65.9) Active Condition [facility] History of tonsillectomy Active Condition [facility] Hyperlipidemia Active Condition [facility] Obstructive sleep apnea of adult Active Condition [facility] Medications Combined list of outpatient medications from [facility] and [facility] facilities.Medications provided include 1) outpatient medications from the last 15 months, and 2) patient-reported medications. Medication Details Route Status Patient Instructions Prescription Expires Prescription Number Last Dispense Date Ordering Provider Order Date Order Qty Source ALLOPURINOL TAB ALLOPURI NOL TAB Non-VA TAKE BY MOUTH Jan 30, 2017 Non-VA Document ed by: ADAM MORAN Document ed at: [facility] ORAL ACTIVE LUISAWild GUY 2016 [facility] AMLODIPINE BESYLATE 10MG TAB AMLODIPI NE BESYLATE 10MG TAB Non-VA TAKE ONE-HALF TABLET BY MOUTH Apr 11, 2016 Non-VA Document ed by: ADAM MORAN Document ed at: [facility] ORAL ACTIVE Wild MORAN 2015 [facility] ASPIRIN 325MG TAB ASPIRIN 325MG TAB Non-VA TAKE ONE TABLET BY MOUTH EVERY DAY Apr 19, 2010 Non-VA Document ed by: MIC JOE Document ed at: [facility] ORAL ACTIVE TATYANADANIEL RONAL [place] 2009 [facility] LISINOPRIL 40MG TAB LISINOPR [place] 40MG TAB Non-VA TAKE ONE TABLET BY MOUTH EVERY DAY Dec 09, 2015 Non-VA Document ed by: ADAM MORAN Document ed at: [facility] ORAL ACTIVE LUISAWild GUY 2015 [facility] MULTIVITAMI NS CAP/TAB MULTIVIT AMINS CAP/TAB Non-VA TAKE ONE TABLET BY MOUTH EVERY DAY Dec 09, 2015 Non-VA Document ed by: ADAM MORAN Document ed at: [facility] ORAL ACTIVE LUISAWildNE E 2015 [facility] NAPROXEN 250MG TAB NAPROXEN 250MG TAB Non-VA TAKE ONE-HALF TABLET BY MOUTH PRN Apr 19, 2010 Non-VA Document ed by: MIC JOE Document ed at: [facility] ORAL ACTIVE DANIEL JOE 2009 [facility] Allergies, Adverse Reactions, Alerts Combined list of allergies from Department of Defense and Veterans Affairs facilities. It does not include entries that were removed or entered in error. Substance Category Reaction Severity Reaction type Status Date Reported Comments Source CEFADROXIL Propensity to adverse reactions to drug (finding) Bleeding active 2 [facility] HCTZ HYDROCHLOROTH IAZIDE Propensity to adverse reactions to drug (finding) Gout active 6 [facility] METOPROLOL Propensity to adverse reactions to drug (finding) Fatigue active 8 [facility] Immunizations Combined list of available immunizations from the Department of Defense and Veterans Affairs facilities. Immunization Series Date Given Administered By Site Reaction Lot Number CVX Code Drug Servicer Status Comments Source COVID-19 (MomentCam), MRNA, LNP-S, PF, 30 MCG/0.3 ML DOSE 2 2020 208 complet ed PFR; [id number]; 1 [facility] COVID-19 ([employer]), MRNA, LNP-S, PF, 30 MCG/0.3 ML DOSE 1 02/05/ 2021 208 complet ed PFR; [id number]; 1 [facility] PNEUMOCOCCAL POLYSACCHARID E [id number] 2017 33 complet ed [employer],[id number] 20 [facility] TDAP 2017 115 complet ed johnny barrera [id number], [facility] PNEUMOCOCCAL CONJUGATE PCV 13 2015 133 complet ed [facility] [employer],M79 321,12/08 [facility] ZOSTER LIVE 2015 121 complet ed [employer],[id number] [id number] 16 [facility] Results Combined list of recent chemistry, hematology and other laboratory results from Department of Defense and Veterans Affairs, ranging from 15 months to all on record, depending upon the facility. Order Name Results Value Reference Range Date Interpretation Specimen Comments Source ALT/SGPT ALANINE AMINOTRANSF ERASE [ENZYMATIC ACTIVITY/VO LUME] IN SERUM OR PLASMA 22 U/L <55 - 55 01/11 Specimen Type: PLASMA No comment entered. Ordering Provider: ROMY MORAN Report Released Date/Time: May 29, 2020 05:02 AM Reporting Lab: [facility] [address] Performing Lab: [facility] [address] [facility] AST/SGOT ASPARTATE AMINOTRANSF ERASE [ENZYMATIC ACTIVITY/VO LUME] IN SERUM OR PLASMA 17 U/L <34 - 34 01/11 Specimen Type: PLASMA No comment entered. Ordering Provider: ROMY MORAN Report Released Date/Time: May 29, 2020 05:02 AM Reporting Lab: [facility] [address] Performing Lab: [facility] [address] [facility] CBC LEUKOCYTES [#/VOLUME] IN BLOOD BY AUTOMATED COUNT 5.01 10*3/u L 4.0 - 11.0 01/11 Specimen Type: BLOOD No comment entered. Ordering Provider: ROMY MORAN Report Released Date/Time: May 29, 2020 05:02 AM Reporting Lab: [facility] [phone] Performing Lab: [facility] [address] [facility] CBC ERYTHROCYTE S [#/VOLUME] IN BLOOD BY AUTOMATED COUNT 6.38 10*6/u L 4.6 - 6.2 01/11 H Specimen Type: BLOOD No comment entered. Ordering Provider: ROMY MORAN Report Released Date/Time: May 29, 2020 05:02 AM Reporting Lab: [facility] [address] Performing Lab: [facility] [address] [facility] CBC HEMOGLOBIN [MASS/VOLUM E] IN BLOOD 19.1 g/dL 13.5 - 17.9 01/11 H Specimen Type: BLOOD No comment entered. Ordering Provider: ROMY MORAN Report Released Date/Time: May 29, 2020 05:02 AM Reporting Lab: [facility] [address] Performing Lab: [facility] [address] [facility] CBC HEMATOCRIT [VOLUME FRACTION] OF BLOOD BY AUTOMATED COUNT 56.0 41 - 54 01/11 H Specimen Type: BLOOD No comment entered. Ordering Provider: ROMY MORAN Report Released Date/Time: May 29, 2020 05:02 AM Reporting Lab: [facility] [address] Performing Lab: [facility] [address] [facility] CBC MCV [ENTITIC VOLUME] BY AUTOMATED COUNT 87.8 fL 80 - 100 01/11 Specimen Type: BLOOD No comment entered. Ordering Provider: ROMY MORAN Report Released Date/Time: May 29, 2020 05:02 AM Reporting Lab: [facility] [address] Performing Lab: [facility] [address] [facility] CBC MCH [ENTITIC MASS] BY AUTOMATED COUNT 29.9 pg 27 - 33 01/11 Specimen Type: BLOOD No comment entered. Ordering Provider: ROMY MORAN Report Released Date/Time: May 29, 2020 05:02 AM Reporting Lab: [facility] [address] Performing Lab: [facility] [address] [facility] CBC MCHC [MASS/VOLUM E] BY AUTOMATED COUNT 34.1 g/dL 32.0 - 37.5 01/11 Specimen Type: BLOOD No comment entered. Ordering Provider: ROMY MORAN Report Released Date/Time: May 29, 2020 05:02 AM Reporting Lab: [facility] [address] Performing Lab: [facility] [address] [facility] CBC PLATELETS [#/VOLUME] IN BLOOD BY AUTOMATED COUNT 202 10*3/u L 150 - 400 01/11 Specimen Type: BLOOD No comment entered. Ordering Provider: ROMY MORAN Report Released Date/Time: May 29, 2020 05:02 AM Reporting Lab: [facility] [address] Performing Lab: [facility] [address] [facility] CBC PLATELET MEAN VOLUME [ENTITIC VOLUME] IN BLOOD BY AUTOMATED COUNT 8.9 fL 7.4 - 10.4 01/11 Specimen Type: BLOOD No comment entered. Ordering Provider: ROMY MORAN Report Released Date/Time: May 29, 2020 05:02 AM Reporting Lab: [facility] [address] Performing Lab: [facility] [address] [facility] CBC ERYTHROCYTE DISTRIBUTIO N WIDTH [RATIO] BY AUTOMATED COUNT 14.4 11.5 - 14.5 01/11 Specimen Type: BLOOD No comment entered. Ordering Provider: ROMY MORAN Report Released Date/Time: May 29, 2020 05:02 AM Reporting Lab: [facility] [address] Performing Lab: [facility] [address] [facility] CREATININ E(INCLUDE S EGFR) CREATININE [MASS/VOLUM E] IN SERUM OR PLASMA 1.0 mg/dL 0.7 - 1.2 01/11 Specimen Type: PLASMA No comment entered. Ordering Provider: ROMY MORAN Report Released Date/Time: May 29, 2020 05:02 AM Reporting Lab: [facility] [address] Performing Lab: [facility] [address] [place] [facility] CREATININ E(INCLUDE S EGFR) GLOMERULAR FILTRATION RATE/1.73 SQ M.PREDICTED [VOLUME RATE/AREA] IN SERUM, PLASMA OR BLOOD BY CREATININE- BASED FORMULA (CKD-EPI) 79 60 01/11 Specimen Type: PLASMA No comment entered. Ordering Provider: ROMY MORAN Report Released Date/Time: May 29, 2020 05:02 AM Reporting Lab: [facility] [address] Performing Lab: [facility] [address] [place] [facility] ELECTROLY AMY/ANION GAP SODIUM [MOLES/VOLU ME] IN SERUM OR PLASMA 140 mmol/L 136 - 145 01/11 Specimen Type: PLASMA No comment entered. Ordering Provider: ROMY MORAN Report Released Date/Time: May 29, 2020 05:02 AM Reporting Lab: [facility] [address] Performing Lab: [facility] [address] [place] [facility] ELECTROLY AMY/ANION GAP POTASSIUM [MOLES/VOLU ME] IN SERUM OR PLASMA 4.3 mmol/L 3.5 - 5.1 01/11 Specimen Type: PLASMA No comment entered. Ordering Provider: ROMY MORAN Report Released Date/Time: May 29, 2020 05:02 AM Reporting Lab: [facility] [address] Performing Lab: [facility] [address] [place] [facility] ELECTROLY AMY/ANION GAP CHLORIDE [MOLES/VOLU ME] IN SERUM OR PLASMA 109 mmol/L 98 - 107 01/11 H Specimen Type: PLASMA No comment entered. Ordering Provider: ROMY MORAN Report Released Date/Time: May 29, 2020 05:02 AM Reporting Lab: [facility] [address] Performing Lab: [facility] [address] [place] [facility] ELECTROLY AMY/ANION GAP CARBON DIOXIDE, TOTAL [MOLES/VOLU ME] IN SERUM OR PLASMA 22 mmol/L 22 - 29 01/11 Specimen Type: PLASMA No comment entered. Ordering Provider: ROMY MORAN Report Released Date/Time: May 29, 2020 05:02 AM Reporting Lab: [facility] [address] Performing Lab: [facility] [address] [facility] ELECTROLY AMY/ANION GAP ANION GAP IN SERUM OR PLASMA 9 mmol/L 5 - 15 01/11 Specimen Type: PLASMA No comment entered. Ordering Provider: ROMY MORAN Report Released Date/Time: May 29, 2020 05:02 AM Reporting Lab: [facility] [address] Performing Lab: [facility] [address] [facility] GLUCOSE GLUCOSE [MASS/VOLUM E] IN SERUM OR PLASMA 101 mg/dL 70 - 100 01/11 H Specimen Type: PLASMA No comment entered. Ordering Provider: ROMY MORAN Report Released Date/Time: May 29, 2020 05:02 AM Reporting Lab: [facility] [address] Performing Lab: [facility] [address] [facility] HEMOGLOBI N A1C HEMOGLOBIN A1C/HEMOGLO BIN.TOTAL [...] May 29, 2020 05:02 AM Reporting Lab: [facility] [address] Performing Lab: [facility] [address] [facility] LIPID PANEL,NON -FASTING CHOLESTEROL [MASS/VOLUM E] IN SERUM OR PLASMA 168 mg/dL <199 - 199 01/11 Specimen Type: PLASMA No comment entered. Ordering Provider: ROMY MORAN Report Released Date/Time: May 29, 2020 05:02 AM Reporting Lab: [facility] [address] Performing Lab: [facility] [address] [place] [facility] LIPID PANEL,NON -FASTING CHOLESTEROL IN HDL [MASS/VOLUM E] IN SERUM OR PLASMA 39 mg/dL 40 01/11 L Specimen Type: PLASMA No comment entered. Ordering Provider: ROMY MORAN Report Released Date/Time: May 29, 2020 05:02 AM Reporting Lab: [facility] [address] Performing Lab: [facility] [address] [place] [facility] LIPID PANEL,NON -FASTING CHOLESTEROL IN LDL [MASS/VOLUM E] IN SERUM OR PLASMA BY CALCULATION 98 mg/dL <99 - 99 01/11 Specimen Type: PLASMA No comment entered. Ordering Provider: ROMY MORAN Report Released Date/Time: May 29, 2020 05:02 AM Reporting Lab: [facility] [address] Performing Lab: [facility] [address] [place] [facility] LIPID PANEL,NON -FASTING CHOLESTEROL IN VLDL [MASS/VOLUM E] IN SERUM OR PLASMA BY CALCULATION 31 mg/dL <29 - 29 01/11 H Specimen Type: PLASMA No comment entered. Ordering Provider: ROMY MORAN Report Released Date/Time: May 29, 2020 05:02 AM Reporting Lab: [facility] [address] Performing Lab: [facility] [address] [place] [facility] LIPID PANEL,NON -FASTING CHOLESTEROL NON HDL [MASS/VOLUM E] IN SERUM OR PLASMA 129 mg/dL <129 - 129 01/11 Specimen Type: PLASMA No comment entered. Ordering Provider: ROMY MORAN Report Released Date/Time: May 29, 2020 05:02 AM Reporting Lab: [facility] [address] Performing Lab: [facility] [address] [place] [facility] LIPID PANEL,NON -FASTING TRIGLYCERID E [MASS/VOLUM E] IN SERUM OR PLASMA 157 mg/dL <149 - 149 01/11 H Specimen Type: PLASMA No comment entered. Ordering Provider: ROMY MORAN Report Released Date/Time: May 29, 2020 05:02 AM Reporting Lab: [facility] [address] Performing Lab: [facility] [address] [facility] PSA PROSTATE SPECIFIC AG [MASS/VOLUM E] IN SERUM OR PLASMA 6.43 ng/mL <4.00 - 4.00 01/11 H Specimen Type: SERUM No comment entered. Ordering Provider: ROMY MORAN Report Released Date/Time: May 29, 2020 05:02 AM Reporting Lab: [facility] [address] Performing Lab: [facility] [address] [facility] TSH W/REFLEX TO FREE T4 THYROTROPIN [UNITS/VOLU ME] IN SERUM OR PLASMA 2.28 u[IU]/ mL 0.35 - 4.94 01/11 Specimen Type: PLASMA No comment entered. Ordering Provider: ROMY MORAN Report Released Date/Time: May 29, 2020 05:02 AM Reporting Lab: [facility] [address] Performing Lab: [facility] [address] [facility] Encounters Combined list of: 1) Encounters from Department of Veterans Affairs facilities going back up to thelast 18 months. 2) Encounters from the Department of Defense facilities going back up to 280 months. Location Location Details Encounter Type Encounter Number Reason For Visit Attending Provider ADM Date DC Date Status Disposition Source [facility] Outpatient Encounter [id number] 03/02 [facility] Social History Combined list of available smoking, tobacco, and other social history from Department of Defense and Veterans Affairs facilities. 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
--- OUTSIDE RECORDS SUMMARY | 2023-11-06 13:58 | XMS_ITS | Referral Summary ---
Author Organization [facility] Address [address] [place] [address] Care Team Providers Care Lease Administration Analyst Name Role Phone Miguel Dowling MD Primary Care Provider [phone] Allergies No known active allergies Medications Medication Sig Dispensed Refills Start Date End Date Status LISINOPRIL PO Take by mouth. Active amLODIPine (NORVASC) 10 MG tablet Take 1 tablet by mouth daily 04/10/2021 Active allopurinol (ZYLOPRIM) 300 MG tablet Take 300 mg by mouth 05/12/2021 Active Social History Tobacco Use Types [...] Comments Blood Pressure 91/72 03/29/2022 12:11 PM CASE MANAGEMENT COORDINATOR Pulse 111 03/29/2022 12:21 PM CASE MANAGEMENT COORDINATOR Temperature 36.6 ??C (97.9 ??F) 07/30/2011 6:27 PM CD T Respiratory Rate 25 03/29/2022 12:21 PM CASE MANAGEMENT COORDINATOR Oxygen Saturation 92% 03/29/2022 12:16 PM CASE MANAGEMENT COORDINATOR Inhaled Oxygen Concentration - - Weight 108.9 kg (240 lb) 03/29/2022 11:22 AM CASE MANAGEMENT COORDINATOR Height 180.3 cm (5' 11) 03/29/2022 11:22 AM CASE MANAGEMENT COORDINATOR Body Mass Index 33.47 03/29/2022 11:22 AM CASE MANAGEMENT COORDINATOR Plan of Treatment Not on file Procedures Procedure Name Priority Date/Time Associated Diagnosis Comments FLEXIBLE SIGMOIDOSCOPY Routine 11:35 AM CASE MANAGEMENT COORDINATOR from Last 3 Months or Most Recently Relevant to Health Maintenance Results * FLEXIBLE SIGMOIDOSCOPY (03/29/2022 11:35 AM CASE MANAGEMENT COORDINATOR) [place] [address] [address] ??[place] ??[id number] Patient Name: Armen Crump ?Procedure Date: 03/29/2022 11:35 AM ? Date of : 1945 ?Admit Type: Outpatient Age: 77 ? Room: 1 ? Note Status: Finalized ?Attending MD: Camila Brar MD Total Sedation Time: 6 minutes ?Instrument Name: 418 [id number] Flex Sig Procedure: ?Flexible Sigmoidoscopy Indications: ?Preoperative assessment Providers: ?Camila Brar MD, Olive White RN Referring MD: ? Medicines: ?Fentanyl 50 micrograms IV, Midazolam 2 mg IV Complications: ?No immediate complications. Procedure: ?Pre-Anesthesia Assessment: ?- Prior to the procedure, a History and Physical ?was performed, and patient medications and ?allergies were reviewed. The patient is competent. ?The risks and benefits of the procedure and the ?sedation options and risks were discussed with the ?patient. All questions were answered and informed ?consent was obtained. Patient identification and ?proposed procedure were verified by the physician ?and the nurse in the pre-procedure area. Mental ?Status Examination: alert and oriented. Airway ?Examination: normal oropharyngeal airway and neck ?mobility. Respiratory Examination: clear to ?auscultation. CV Examination: normal. Prophylactic ?Antibiotics: The patient does not require ?prophylactic antibiotics. Prior Anticoagulants: The ?patient has taken no anticoagulant or antiplatelet ?agents. ASA Grade Assessment: II - A patient with ?mild systemic disease. After reviewing the risks ?and benefits, the patient was deemed in ?satisfactory condition to undergo the procedure. ?The anesthesia plan was to use moderate sedation / ?analgesia (conscious sedation). Immediately prior ?to administration of medications, the patient was ?re-assessed for adequacy to receive sedatives. The ?heart rate, respiratory rate, oxygen saturations, ?blood pressure, adequacy of pulmonary ventilation, ?and response to care were monitored throughout the ?procedure. The physical status of the patient was ?re-assessed after the procedure. ?After obtaining informed consent, the scope was ?passed under direct vision. The Colonoscope was ?introduced through the anus and advanced to the ?sigmoid colon. The flexible sigmoidoscopy was ?accomplished without difficulty. The patient ?tolerated the procedure well. The quality of the ?bowel preparation was excellent. ? Findings: ? The perianal and digital rectal examinations were normal. ? An infiltrative non-obstructing medium-sized mass was found in the ? proximal rectum, approximatelyu 18cm from the anal verge. The mass was ? non-circumferentia l. No bleeding was present. Tattoo was present distal ? to the mass. ? Three sessile polyps were found in the distal rectum. The polyps were 3 ? to 4 mm in size. These polyps were removed with a jumbo cold forceps. ? Resection and retrieval were complete. ? The exam was otherwise without abnormality. ? Impression: ? 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 ?- Three 3 to 4 mm polyps in the distal rectum, ?removed with a jumbo cold forceps. Resected and ?retrieved. ?- The examination was otherwise normal. Recommendation: ? - Discharge patient to home. ?- Plan to proceed with surgical excision on ?. ? Procedure Code(s): ? --- Professional --- ? 30454, Sigmoidoscopy, flexible; with biopsy, single or multiple Diagnosis Code(s): ? --- Professional --- ? C20, Malignant neoplasm of rectum ? K62.1, Rectal polyp ? Z01.818, Encounter for other preprocedural examination CPT copyright 2020 [employer]. All rights reserved. The codes documented in this report are preliminary and upon viticulture teacher review may be revised to meet current compliance requirements. Electronic Signature by Dr Camila Brar Camila Brar MD 03/29/2022 11:53:21 AM I was physically present for the entire viewing portion of the exam. Camila Brar MD Number of Addenda: 0 Note Initiated On: 03/29/2022 11:35 AM Total Procedure Duration: 0 hours 5 minutes 14 seconds Scope In: 11:43:30 AM Scope Out: 11:48:44 AM RADIOLOGY RESULTS 03/29/2022 11:3 5 AM CASE MANAGEMENT COORDINATOR Camila Brar MD PROCEDURES Performing Organization Address City/State/[facility] Co de Phone Number RADIOLOGY RESULTS from Last 3 Months or Most Recently Relevant to Health Maintenance Care Teams Lease Administration Analyst Relationship Specialty Start Date End Date Miguel Dowling MD [facility] [address], [place] [id number] PCP - General Family Medicine 03/07/22
--- OUTSIDE RECORDS SUMMARY | 2023-11-06 13:58 | XMS_ITS | Encounter Summary ---
Author Organization [facility] Address [address] [place] [address] Care Team Providers Care Route Agent Name Role Phone Unavailable Primary Care Provider Unavailabl e Reason for Visit * Outpatient (Routine) - Closed Specialty Diagnoses / Procedures Referred By Gaby t Referred To Contact Diagnoses Lesion Parotid Gland Procedures US Superficial Tissue Fine Needle Aspiration US Parotid Submandibular Gland Biopsy Anika Anthony M.D. [address] [place] [address] [facility] Region Referral ID Status Reason Start Date Expiration Date Visits Re quested Visits Authorized [id number] Closed 10/09/2023 10/08/2024 1 1 Encounter Details Date Type Department Care Team (Latest Contact Info) Description 10/25/2023 10:52 AM CDT - 10/25/2023 11:22 AM T Hospital Encounter Department of Radiology, [facility], in [place], [place] [address] [place] [address] Anika Anthony M.D. [address] [place] [phone] [address] Fabian M.D. [address] [place] [address] Lesion Parotid Gland Discharge Disposition: Home or [...] Name Priority Date/Time Associated Diagnosis Comments US SUPERFICIAL TISSUE FINE NEEDLE ASPIRATION RAD - Routine (most inpatients and all outpatients) 10/25/2023 11:22 AM CDT Lesion Parotid Gland CYTOLOGY FINE NEEDLE ASPIRATION (INCLUDES CORE BIOPSIES Routine 10/25/2023 11:10 AM CDT Lesion Parotid Gland documented in this encounter Results * US Superficial Tissue Fine Needle Aspiration (10/25/2023 11:22 AM CDT) Anatomical Region Laterality Modality Body, Ultrasound RST LOS, Mu sculoskeletal ARZ LOS, Ultrasound ARZ LOS, Ultrasound FLA LOS, Procedure FLA LOS, Muskuloskeletal FLA LOS, Abdominal FLA LOS, Procedural, Procedural NWWI LOS N/A Ultrasound Impressions 10/25/2023 11:28 AM CDT Ultrasound-guided right parotid gland lesion biopsy. NR Narrative 10/25/2023 11:28 AM CDT EXAM: US SUPERFICIAL TISSUE FINE NEEDLE ASPIRATION PRE-PROCEDURE: Patient seen and evaluated. Allergies, pertinent medications, and history reviewed. Discussed risks, benefits, alternatives for procedure, and obtained informed consent. Patient understands information and questions answered. Immediately prior to starting the procedure, in the presence of the assisting personnel, procedural pause was conducted to verify correct patient identity and verification of procedure to be performed, and as applicable, correct side and site, correct patient position, availability of implants, special equipment, or special requirements, and all image and specimen identification data. The roles and responsibilities of care team members, residents, and fellows were discussed. TECHNIQUE: Sterile. 1% lidocaine for local anesthesia. Location: 1.6 cm hypoechoic lesion in the deep right parotid gland, as seen on same-day diagnostic ultrasound. Target lesion size: 1.6 cm. Needle size: 25-gauge. Number of passes: 6. Complication: None. Blood loss: None. PATIENT INSTRUCTIONS: Patient may be dismissed from the radiology department when dismissal criteria met. POST-PROCEDURE DIAGNOSIS: Indeterminate right parotid gland lesion. Procedure Note Rd Fabian M.D. - 10/25/2023 EXAM: US SUPERFICIAL TISSUE FINE NEEDLE ASPIRATION PRE-PROCEDURE: Patient seen and evaluated. Allergies, pertinentmedications, and history reviewed. Discussed risks, benefits, alternativesfor procedure, and obtained informed consent. Patient understandsinformation and questions answered. Immediately prior to starting the procedure, in the presence of the assistingpersonnel, procedural pause was conducted to verify correct patientidentity and verification of procedure to be performed, and as applicable,correct side and site, correct patient position, availability of implants, special equipment, or specialrequirements, and all image and specimen identification data. The rolesand responsibilities of care team members, residents, and fellows werediscussed. TECHNIQUE: Sterile. 1% lidocaine for local anesthesia. Location: 1.6 cm hypoechoic lesion in the deep right parotid gland, asseen on same-day diagnostic ultrasound. Target lesion size: 1.6 cm. Needle size: 25-gauge. Number of passes: 6. Complication: None. Blood loss: None. PATIENT INSTRUCTIONS: Patient may be dismissed from the radiologydepartment when dismissal criteria met. POST-PROCEDURE DIAGNOSIS: Indeterminate right parotid gland lesion. IMPRESSION: Ultrasound-guided right parotid gland lesion biopsy. NR Anika Anthony M.D. [facility] US PROCEDURES * (ABNORMAL) Cytology Fine Needle Aspiration (including core biopsies) (10/25/2023 11:10 AM CDT) (A) 4:28 PM CDT DTL Participated in the Interpretation Laura Martin M.D., Ph.D. -Pathology Resident(A) 10/25/2023 4:28 PM CDT DTL Report electronically signed by Harshil Yanes M.D. I verify that I have examined all relevant slides/material s for the specimen(s) and rendered or confirmed the diagnosis. (A) 10/25/2023 4:28 PM CDT DTL Gross Description Received 12 alcohol-fixed smears.(A) 10/25/2023 4:28 PM CDT DTL Source A. Salivary Gland, Right parotid mass, fine needle aspiration (A) 10/25/2023 4:28 PM CDT DTL Interpretation A. 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 ??See comment Comment: Differential diagnosis based on the cytological findings would include an oncocytoma, oncocytic carcinoma, oncocytic metaplasia, oncocytosis (nodular oncocytic hyperplasia) and Warthin's tumor. ??Careful clinical and imaging correlation and follow-up will be needed. (A) 10/25/2023 4:28 PM CDT DTL Tissue (Salivary Gland, Parotid Right) 10/25/2023 11:10 AM CDT Anika Anthony M.D. LAB SURG PATH ORDERA [facility] [address] [place] [address], [facility] [address] [facility] [address] [place] [address] documented in this encounter Visit Diagnoses Diagnosis Lesion Parotid Gland documented in this encounter Administered Medications Inactive Administered Medications - up to 3 most recent administrations Medication Order MAR Action Action Date Dose Rate Site lidocaine 10 mg/mL (1 %) injection (Xylocaine) As needed, Starting on Mon10/25/23 at 1115, Intra-Op Given 10/25/2023 11:15 AM CDT 1 mL Right Neck documented in this encounter Active and Recently Administered Medications Times are shown in CDT. PRN Medication Order 10/23/2023 10/24/2023 10/25/2023 lidocaine 10 mg/mL (1 %) injection (Xylocaine) (COMPLETED) As needed, Starting on Mon10/25/23 at 1115, Intra-Op 1115 (Given - Provid er: Rd Fabian M.D.) documented in this encounter
--- OUTSIDE RECORDS SUMMARY | 2023-11-06 13:58 | XMS_ITS | Clinical Summary ---
Author Organization [facility] Address [address] [place] [address] Care Team Providers Care Residential Sales Manager Name Role Phone Unavailable Primary Care Provider Unavailabl e Source Comments Patient records contain information from all sites at [facility]. For routine questions regarding patient records, call [phone] during business hours, M-F 8:00 AM - 5:00 PM Central Time. Record requests for emergency care only can be directed to [phone] at any time.[facility] Encounters Date Type Department Care Team Description 10/25/2023 10:52 AM CDT - 10/25/2023 11:22 AM T Hospital Encounter Department of Radiology, [facility], in [place], [place] [address] [place] [address] Anika Anthony M.D. Gu, Chris N, M.D. Lesion Parotid Gland Discharge Disposition: Home or Self Care 10/25/2023 7:04 AM CDT - 10/25/2023 10:46 AM T Hospital Encounter Department of Radiology, [facility], in [place], [place] [address] [place] [address] Anika Anthony M.D. Lesion Parotid Gland Discharge Disposition: Home or Self Care 10/09/2023 Orders Only Department of Oncology in [place], [place] [address] [place] [address] Anika Anthony M.D. Lesion Parotid Gland (Primary Dx) from Last 3 Months Social History Tobacco [...] on file Sexual Orientation Not on file Plan of Treatment Health Maintenance Due Date Last Done Comments Hepatitis C Screening 1945 Zoster Vaccines (2 of 3) 02/03/2016 12/09/2015 COVID-19 Vaccine (3 - season) 12/23/202204/2020, 05/29/2020 Depression Screening (Annual PHQ-2) 04/24/2023 Fall Risk Screen (Annual) 04/24/2023 Influenza Vaccine (#1) 2024 02/25/2022, 2015 DTaP,Tdap,and Td Vaccines (3 - Td or Tdap) 03/06/2028 03/06/2018, 11/30/2012 Pneumococcal vaccine (65+ years) Completed 01/07/2021, 03/06/2018, 12/09/2015 Procedures Procedure Name Priority Date/Time Associated Diagnosis Comments US SUPERFICIAL TISSUE FINE NEEDLE ASPIRATION RAD - Routine (most inpatients and all outpatients) 10/25/2023 11:22 AM CDT Lesion Parotid Gland CYTOLOGY FINE NEEDLE ASPIRATION (INCLUDES CORE BIOPSIES Routine 10/25/2023 11:10 AM CDT Lesion Parotid Gland US PAROTID SUBMANDIBULAR GLANDS RAD - Routine (most inpatients and all outpatients) 10/25/2023 7:45 AM CDT Lesion Parotid Gland OUTSIDE NM PET Routine 09/28/2023 3:15 PM CDT from Last 3 Months Results * US Superficial Tissue Fine Needle [...] gland lesion biopsy. NR Anika Anthony M.D. IMG US PROCEDURES * (ABNORMAL) Cytology Fine Needle [...] Anika Anthony M.D. LAB SURG PATH ORDERA LAUR[facility] [address] [place] [address], [facility] [address] [place] [address] * US Parotid Submandibular Glands (10/25/2023 7:45 [...] biopsy of this lesion later today. Anika Anthony M.D. IMG US PROCEDURES * PET skull to mid thigh-Outside NM Pet (09/28/2023 3:15 PM CDT) Narrative [facility] - 10/03/2023 1:54 PM CDT This order has been created and auto-finalized to support the import of outside images. If available, original interpretation can be found on the Media Tab in Chart Review, in Document Viewer, as an image in QREADS or as an Addendum. If a re-interpretation or overread is required please follow defined workflow.?? Provider Not In System IMG NM PROCEDURES [facility] NA from Last 3 Months
--- OUTSIDE RECORDS SUMMARY | 2023-11-06 13:58 | XMS_ITS | Referral Summary ---
Author Organization [facility] Address [address] [place] [address] Care Team Providers Care Environmental Health Safety Manager Name Role Phone Unavailable Primary Care Provider Unavailabl e Source Comments Patient records contain information from all sites at [facility]. For routine questions regarding patient records, call [phone] during business hours, M-F 8:00 AM - 5:00 PM Central Time. Record requests for emergency care only can be directed to [phone] at any time.[facility] Encounters Date Type Department Care Team Description 10/25/2023 10:52 AM CDT - 10/25/2023 11:22 AM T Hospital Encounter Department of Radiology, [facility], in [place], [place] [address] [place] [address] Anika Anthony M.D. Gu, Chris N, M.D. Lesion Parotid Gland Discharge Disposition: Home or Self Care 10/25/2023 7:04 AM CDT - 10/25/2023 10:46 AM T Hospital Encounter Department of Radiology, [facility], in [place], [place] [address] [place] [address] Anika Anthony M.D. Lesion Parotid Gland Discharge Disposition: Home or Self Care 10/09/2023 Orders Only Department of Oncology in [place], [place] [address] [place] [address] Anika Anthony M.D. Lesion Parotid Gland (Primary [...] Orientation Not on file Plan of Treatment Not on file Procedures [...] right parotid gland lesion biopsy. NR Anika EWING US PROCEDURES * (ABNORMAL) Cytology Fine Needle [...] Anika Anthony M.D. LAB SURG PATH ORDERA [facility] [address] [place] [address], [facility] DTL [address] [place] [address] * US Parotid Submandibular Glands (10/25/2023 7:45 [...] NM Pet (09/28/2023 3:15 PM CDT) Narrative [facility] - 10/03/2023 1:54 PM CDT This order [...]
--- OUTSIDE RECORDS SUMMARY | 2023-11-06 13:58 | XMS_ITS | Clinical Summary ---
Author Organization [facility] Address [address] [place] [address] Care Team Providers Care Principal Technical Architect Name Role Phone Miguel Dowling MD Primary Care Provider [phone] Allergies No known active allergies Medications Medication [...] Comments Blood Pressure 91/72 03/29/2022 12:11 PM CORPORATE COUNSELOR Pulse 111 03/29/2022 12:21 PM CORPORATE COUNSELOR Temperature 36.6 ??C (97.9 ??F) 07/30/2011 6:27 PM CD T Respiratory Rate 25 03/29/2022 12:21 PM CORPORATE COUNSELOR Oxygen Saturation 92% 03/29/2022 12:16 PM CORPORATE COUNSELOR Inhaled Oxygen Concentration - - Weight 108.9 kg (240 lb) 03/29/2022 11:22 AM CORPORATE COUNSELOR Height 180.3 cm (5' 11) 03/29/2022 11:22 AM CORPORATE COUNSELOR Body Mass Index 33.47 03/29/2022 11:22 AM CORPORATE COUNSELOR Plan of Treatment Health Maintenance Due Date [...] Vaccine (3 - season) 2022 06/22/2020, 05/29/2020 PHQ-2 (once per calendar year) 2023 INFLUENZA VACCINE (#1) 2023 , 01/23/2016 DTAP/TDAP/TD IMMUNIZATION (3 - Td or Tdap) [...] to complete this topic sDNA (Cologuard) Discontinued Procedures Procedure Name Priority Date/Time Associated Diagnosis Comments FLEXIBLE SIGMOIDOSCOPY Routine 11:35 AM CORPORATE COUNSELOR from Last 3 Months or Most Recently Relevant to Health Maintenance Results * FLEXIBLE SIGMOIDOSCOPY (03/29/2022 11:35 AM CORPORATE COUNSELOR) Flex Sig [facility] [address] ??[id number] Patient Name: Armen Crump ?Procedure Date: 03/29/2022 [...] size. These polyps were removed with a [place] cold forceps. ? Resection and retrieval were [...] Procedure Code(s): ? --- Professional --- ? 82623, Sigmoidoscopy, flexible; with biopsy, single or multiple Diagnosis Code(s): ? --- Professional --- ? C20, Malignant neoplasm of rectum ? K62.1, Rectal polyp ? Z01.818, Encounter for other preprocedural examination CPT copyright 2020 [employer]. All rights reserved. The codes documented in this report are preliminary and upon receivable manager review may be revised to meet current [...] AM RADIOLOGY RESULTS 03/29/2022 11:3 5 AM CORPORATE COUNSELOR Camila Brar MD PROCEDURES RADIOLOGY RESULTS from Last 3 Months or Most Recently Relevant to Health Maintenance Care Teams Principal Technical Architect Relationship Specialty Start Date End Date Miguel Dowling MD [facility] [address] [place] [address] PCP - General Family Medicine 03/07/22
--- OUTSIDE RECORDS SUMMARY | 2023-11-06 13:58 | XMS_ITS | Encounter Summary ---
Author Organization [facility] Address [address] [place] [address] Care Team Providers Care Inspector Missile Name Role Phone Unavailable Primary Care Provider Unavailabl e Reason for Referral * Outpatient (Routine) - Closed Specialty Diagnoses / Procedures Referred By Gaby mantilla Referred To Contact Diagnoses Lesion Parotid Gland Procedures US Superficial Tissue Fine Needle Aspiration US Parotid Submandibular Gland Biopsy Anika Anthony M.D. [address] [place] [address] [facility] Referral ID Status Reason Start Date Expiration Date Visits Re quested Visits Authorized [id number] Closed 10/09/2023 10/08/2024 1 1 * Outpatient (Routine) - Closed Specialty Diagnoses / Procedures Referred By Gaby mantilla Referred To Contact Diagnoses Lesion Parotid Gland Procedures US Parotid Submandibular Glands Anika Anthony M.D. [address] [place] [address] [facility] Referral ID Status Reason Start Date Expiration Date Visits Re quested Visits Authorized [id number] Closed 10/09/2023 10/08/2024 1 1 Encounter Details Date Type Department Care Team (Late st Contact Info) Description 10/09/2023 Orders Only Department of Oncology in [place], [place] [address] [place] [phone] Anika Anthony M.D. [address] [place] [phone] Lesion Parotid Gland (Primary Dx) Social History Tobacco Use Types [...] on file documented as of this encounter Results * US Superficial Tissue [...] biopsy. NR Anika EWING US PROCEDURES * US Parotid Submandibular Glands (10/25/2023 7:45 [...] this encounter Visit Diagnoses Diagnosis Lesion Parotid Gland- Primary Lesion Parotid Gland Lesion Parotid Gland documented in this encounter
--- OUTSIDE RECORDS SUMMARY | 2023-11-06 13:59 | XMS_ITS | Encounter Summary ---
Author Organization [facility] Address [address], [place] [address] Care Team Providers Care Automation Qa Tester Name Role Phone Kristine Brown MD Primary Care Provider Encounter Details Date Type Department Care Team (Late st Contact Info) Description 04/18/2016 Refill Order [facility] [address] [place] [address] [place] [address] [place] [address] Social History Tobacco Use Types Packs/Day Years [...] notified. Charlene Ortega CMA 05/05/2016, 6:11 PM CHBOARD OPERATOR RECEPTIONIST documented in this encounter Plan of Treatment Not on file documented as of this encounter Visit Diagnoses Diagnosis Encounter for long-term (current) use of medications- Primary Encounter for long-term (current) use of other medications documented in this encounter Care Teams Automation Qa Tester Relationship Specialty [place] [address] [place] [address] PCP - General Family Practice 03/25/13 documented as of this encounter
--- OUTSIDE RECORDS SUMMARY | 2023-11-06 13:59 | XMS_ITS | Encounter Summary ---
Author Organization [facility] Address [address] [place] [address] Care Team Providers Care Social Services Analyst Name Role Phone Kristine Brown MD Primary Care Provider [phone] Encounter Details Date Type Department Care Team (Late st Contact Info) Description 09/29/2009 Correspondence External to External, Provider [place] [address] MED HX AND MEDICATIONS Social History Tobacco Use Types Packs/Day Years Used Date Smoking Tobacco: Never Assessed Sex and Gender Information Value Date Recorded Sex Assigned at Not on file Gender Identity Not on file Sexual Orientation Not on file documented as of this encounter Progress Notes * External, Provider - 09/29/2009 12:00 AM CDT BILITY HEARING OFFICER documented in this encounter Plan of Treatment Not on file documented as of this encounter Visit Diagnoses Not on filedocumented in this encounter Care Teams Social Services Analyst Relationship Specialty [place] [address] [place] [address] PCP - General Family Practice 03/25/13 documented as of this encounter
--- OUTSIDE RECORDS SUMMARY | 2023-11-06 13:59 | XMS_ITS | Clinical Summary ---
Author Organization [facility] Address [place], [place] [address] Care Team Providers Care Water Conservationist Name Role Phone Miguel Dowling MD Primary Care Provider [phone] Allergies Active Allergy Reactions Criticality Noted Date [...] Take 0.5-1 Tablets by mouth once daily. 04/10/2021 Active allopurinoL (ZYLOPRIM) 300 mg tablet Take 300 mg by mouth once daily. 05/12/2021 Active lisinopriL (PRINIVIL; ZESTRIL) 40 mg tablet Take 40 mg by mouth once daily. 01/07/2021 Active enoxaparin (LOVENOX) 40 mg/0.4 mL injectionIndication s:Rectal cancer (HC) Inject 0.4 mL (40 mg) subcutaneous once daily. 10.4 mL 04/03/2022 Active Active Problems Problem Noted Date Diagnosed Date Paroxysmal atrial fibrillation 03/31/2022 Rectal cancer 03/31/2022 Polycythemia 03/31/2022 Overview: Going back at least as far as 2014. No workup. Hypertension 03/31/2022 Gout 03/31/2022 Macular degeneration 03/31/2022 Obesity (BMI 30.0-34.9) 03/31/2022 REBECCA (obstructive sleep apnea) 03/31/2022 Prediabetes 03/31/2022 Immunizations Name Administration Dates Next Due COVID-19 vaccine ([employer] 30mcg/0.3mL) P F, V 06/22/2020,05/29/2020 Social History Tobacco Use Types Packs/Day [...] Comments Blood Pressure 142/78 04/03/2022 7:48 AM DIRECTOR TITLE Pulse 105 04/03/2022 7:48 AM DIRECTOR TITLE Temperature 37.1 ??C (98.7 ??F) 04/03/2022 7:48 AM CS T Respiratory Rate 18 04/03/2022 7:48 AM DIRECTOR TITLE Oxygen Saturation 92% 04/03/2022 7:48 AM DIRECTOR TITLE Inhaled Oxygen Concentration - - Weight 106.3 kg (234 lb 5.6 oz) 022 11:00 AM DIRECTOR TITLE Height 180.3 cm (5' 11) 03/31/2022 11: 30 AM DIRECTOR TITLE Body Mass Index 32.69 03/31/2022 11:30 AM DIRECTOR TITLE Plan of Treatment Health Maintenance Due Date [...] 2022 06/22/2020, 05/29/2020 Influenza for age 65+ 12/24/2023 Advance Directives * Full Code (Latest Code Status on File) Date Activated Date Inactivated Comments 03/31/2022 10:50 AM 04/03/2022 6:36 PM Question Answer Comments Code Status Discussion: Reviewed Preferences Care Teams Water Conservationist Relationship Specialty Start Date End Date Miguel Dowling MD [address] [place] [address] PCP - General Family Practice 01/21/21
--- OUTSIDE RECORDS SUMMARY | 2023-11-06 13:59 | XMS_ITS | Clinical Summary ---
Author Organization [employer] Address [address] [address] Care Team Providers Care Plant Breeder Name Role Phone Kristine Brown MD Primary Care Provider [phone] Source Comments You are receiving this document [...] for each transition of care or referral. [employer] Allergies Active Allergy Reactions Criticality Noted Date [...] RN 11/27/2015, 4:49 PM ; HTN (hypertension) ([facility]) Nurse managed Immunizations Name Administration Dates Next [...] DT Respiratory Rate 14 05/19/2016 9:41 AM CAT OPERATOR Oxygen Saturation - - Inhaled Oxygen [...] 2022-24 season) 2022 06/22/2020, 05/29/2020 Influenza (#1) 2023 01/23/2016 Cholesterol Discontinued 01/30/2015, 11/19/2012 HepA Aged [...] - 01/30/2015 12:26 PM CDT Performed at [facility], [address] [place] [id number] Kristine Brown MD LAB_[facility] [employer] [phone] from Last 3 Months or Most Recently Relevant to Health Maintenance Care Teams Plant Breeder Relationship Specialty [place] [address] [place] [address] PCP - General Family Practice 03/25/13
== END 2023-11-06 13:57 | disposition home or self-care (01) ==
LOC: LKVREF 13:56
PROVIDERS: PCP Family Medicine; Visit Provider Family Medicine
DX: Z01.818 Encounter for other preprocedural examination (principal); M10.9 Gout, unspecified
CPT/HCPCS: 84550

== ENCOUNTER 2024-01-08 14:30 | Outpatient (RCR) | payer OTHER, SELFPAY ==
[2023-09-28 13:50] LABS: Eosinophils Percent Auto 4.1 % (0.0-7.0); Hematocrit 58.4 % (37.0-53.0); Hemoglobin* 19.7 gm/dL (13.5-17.5); Immature Granulocytes Abs Auto 0.02 K/uL (0.00-0.30); Immature Granulocytes Pct Auto 0.4 %; Lymphocytes Percent Auto 24.5 % (20-44); Mean Corpuscular HGB Conc 34 gm/dL (32-36); Mean Corpuscular Hemoglobin 31 pg (26-34); Mean Corpuscular Volume 91 fL (80-100); Monocytes Percent Auto 13.7 % (0.0-11.0); Neutrophils Percent Auto 57.3 % (42.0-72.0); Platelet Count* 192 K/uL (140-440); RDW Coefficient of Variation % 13.5 % (11.5-15.5); Red Blood Count 6.44 m/uL (4.30-5.90); White Blood Count* 4.89 K/uL (4.50-11.00)
[2023-09-28 13:52] LABS: Slide Review Reflex No
[2023-09-28 13:59] LABS: Chloride* 105 mmol/L (96-114)
[2023-09-28 14:00] LABS: Albumin* 5.1 g/dL (3.3-5.0)
[2023-09-28 14:01] LABS: Potassium* 4.8 mmol/L (3.6-5.1); Sodium* 139 mmol/L (135-149)
[2023-09-28 14:03] LABS: Alkaline Phosphatase* 56 U/L (40-150); Anion Gap 8 mEq/L (7-15); Aspartate Amino Transferase* 26 U/L (12-35); Bilirubin Total* 1.6 mg/dL (0.1-1.5); Carbon Dioxide* 26 mmol/L (20-32); Estimated Glomerular Filt Rate 78 ml/min; Total Protein* 7.8 g/dL (6.0-8.3)
[2023-09-28 14:04] LABS: Alanine Aminotransferase* 24 U/L (4-50); Blood Urea Nitrogen* 22 mg/dL (7-30); Calcium* 9.4 mg/dL (8.4-10.6); Glucose* 97 mg/dL (60-115)
[2023-10-04 11:29] LABS: PSA Diagnostic* 4.69 ng/mL (0.10-4.00)
[2023-10-04 11:36] LABS: Ferritin* 41.4 ng/mL (17.9-464.0)
[2023-10-04 11:52] LABS: Albumin* 4.9 g/dL (3.3-5.0)
[2023-10-04 11:55] LABS: Alkaline Phosphatase* 57 U/L (40-150); Aspartate Amino Transferase* 23 U/L (12-35); Bilirubin Direct* 0.5 mg/dL (0.0-0.5); Total Protein* 7.2 g/dL (6.0-8.3)
[2023-10-04 11:56] LABS: Alanine Aminotransferase* 24 U/L (4-50)
--- NOTE | 2024-02-16 15:14 | ONC.NURNOTE ---
Patient called yesterday 02/14 with complaints of continuing to receive phone calls about an appt on 02/28 that if he doesn't call back they will cancel his appt. RN reviewed patient's calendar and it shows that he has a RC with Dr. Vázquez on 03/04. Patient states we need to cancel that appt as appts are being made for him without his participation. RN advised that she would have Marjorie MCKNIGHT call him regarding his appt and wanting to cancel it. Advised him that he should listen to the VM for the appt on 02/28 and call the number back that is left in the VM. Pt still wants 03/04 appt cancelled, RN again stated that Marjorie MCKNIGHT would call about that appt to discuss with him.
== END 2024-03-26 23:59 | disposition home or self-care (01) ==
LOC: CCIC 14:30
PROVIDERS: PCP Family Medicine; Referring Provider Family Medicine; Visit Provider Internal Medicine Hematology & Oncology
DX: C19 Malignant neoplasm of rectosigmoid junction (principal); R97.20 Elevated prostate specific antigen [PSA]; R78.89 Finding of other specified substances, not normally found in blood
CPT/HCPCS: 36415; 78815; 80053; 80076; 82378; 82728; 84153; 85025; 99214; 99215; G0463; A9552

== ENCOUNTER 2024-07-04 13:59 | Outpatient (CLI) | payer OTHER, SELFPAY | END 2024-07-04 14:00 | disposition home or self-care (01) | PROVIDERS: PCP Family Medicine; Visit Provider Family Medicine | DX: R73.03 Prediabetes (principal); I10 Essential (primary) hypertension; D75.1 Secondary polycythemia; M10.9 Gout, unspecified; R97.20 Elevated prostate specific antigen [PSA]; Z13.220 Encounter for screening for lipoid disorders; Z12.5 Encounter for screening for malignant neoplasm of prostate | CPT/HCPCS: 80053; 80061; 84153; 84154; 84550 ==

== ENCOUNTER 2024-09-26 15:50 | Emergency (ER) | payer OTHER, SELFPAY ==
--- OUTSIDE RECORDS SUMMARY | 2022-01-11 09:30 | XMS_ITS | Continuity of Care Document ---
Author Name [facility] Organization [facility] Care Team Providers Care Retail Furniture Sales Name Role Phone [facility] Unavailable Unavailable Problems Combined list of problems from Department of [facility] and [facility] facilities. It does not include entries that were removed or entered in error. Problem Status Onset Date Problem Type Date of Resolution Comments Source Basal cell carcinoma of skin Active Condition Mar 17, 2017 Entered By: ALEJANDRO REN Comment: 03.15.2017 R Nose. [facility] Benign essential hypertension (SNOMED CT [id number]) Active Condition [facility] Elevated PSA Active Condition [facility] Erythrocytosis Active Condition [facility] Gout Active Condition [facility] H/O: vasectomy Active Condition [facility] Health Maintenance (ICD-9-CM V65.9) Active Condition [facility] History of tonsillectomy Active Condition [facility] Hyperlipidemia Active Condition [facility] Obstructive sleep apnea of adult Active Condition [facility] Medications Combined list of outpatient medications from [facility] and [facility] facilities.Medications provided include 1) outpatient medications from the last 15 months, and 2) patient-reported medications. Medication Details Route Status Patient Instructions Prescription Expires Prescription Number Last Dispense Date Ordering Provider Order Date Order Qty Source ALLOPURINOL TAB TAKE BY MOUTH ORAL ACTIVE LUISAWild 2016 [facility] AMLODIPINE BESYLATE 10MG TAB TAKE ONE-HALF TABLET BY MOUTH ORAL ACTIVE LUISAWild 2015 [facility] ASPIRIN 325MG TAB TAKE ONE TABLET BY MOUTH EVERY DAY ORAL ACTIVE DANIEL JOE 2009 [facility] LISINOPRIL 40MG TAB TAKE ONE TABLET BY MOUTH EVERY DAY ORAL ACTIVE LIUSAL MAME E 2015 [facility] MULTIVITAMI NS CAP/TAB TAKE ONE TABLET BY MOUTH EVERY DAY ORAL ACTIVE LUISAWild 2015 [facility] NAPROXEN 250MG TAB TAKE ONE-HALF TABLET BY MOUTH PRN ORAL ACTIVE DANIEL JOE 2009 [facility] Allergies, Adverse Reactions, Alerts Combined list of allergies from Department of [facility] facilities. It does not include entries that were removed or entered in error. Substance Category Reaction Severity Reaction type Status Date Reported Comments Source CEFADROXIL Propensity to adverse reactions to drug (finding) Bleeding active 2 [facility] HCTZ HYDROCHLOROTH IAZIDE Propensity to adverse reactions to drug (finding) Gout active 6 [facility] METOPROLOL Propensity to adverse reactions to drug (finding) Fatigue active 8 [facility] Immunizations Combined list of available immunizations from the Department of [facility] and [facility] facilities. Immunization Series Date Given Administered By Site Reaction Lot Number CVX Code Drug Maintenance Mechanic Status Comments Source COVID-19 ([employer]), MRNA, LNP-S, PF, 30 MCG/0.3 ML DOSE 2 2020 208 complet ed PFR; [id number]; 1 [facility] COVID-19 ([employer]), MRNA, LNP-S, PF, 30 MCG/0.3 ML DOSE 1 2020 208 complet ed PFR; [id number]; 1 [facility] PNEUMOCOCCAL POLYSACCHARID E PPV23 2017 33 complet ed [employer] and co,[id number] [id number] 20 [facility] TDAP 2017 115 complet ed sanofi pastuer [id number], [facility] PNEUMOCOCCAL CONJUGATE PCV 13 2015 133 complet ed [employer],M79 321,12/08 [facility] ZOSTER LIVE 2015 121 complet ed [employer],[id number] [id number] 16 [facility] Social History Combined list of available smoking, tobacco, and other social history from Department of [facility] and [facility] facilities. 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
--- OUTSIDE RECORDS SUMMARY | 2022-01-11 09:30 | XMS_ITS | Continuity of Care Document ---
Author Name [facility] Organization [facility] Care Team Providers Care Dispatch Clerk Name Role Phone [facility] Unavailable Unavailable Problems Combined list of problems from Department of [facility] and [facility] facilities. It does not include entries that were removed or entered in error. Problem Status Onset Date Problem Type Date of Resolution Comments Source Basal cell carcinoma of skin Active Condition Mar 17, 2017 Entered By: ALEJANDRO REN Comment: 03.15.2017 R Nose. [facility] Benign essential hypertension (SNOMED CT [id number]) Active Condition [facility] Elevated PSA Active Condition [facility] Erythrocytosis Active Condition [facility] Gout Active Condition [facility] H/O: vasectomy Active Condition [facility] Health Maintenance (ICD-9-CM V65.9) Active Condition [facility] History of tonsillectomy Active Condition [facility] Hyperlipidemia Active Condition [facility] Obstructive sleep apnea of adult Active Condition [facility] Medications Combined list of outpatient medications from [facility] and [facility] facilities.Medications provided include 1) outpatient medications from the last 15 months, and 2) patient-reported medications. Medication Details Route Status Patient Instructions Prescription Expires Prescription Number Last Dispense Date Ordering Provider Order Date Order Qty Source ALLOPURINOL TAB TAKE BY MOUTH ORAL ACTIVE LUISAWild 2016 [facility] AMLODIPINE BESYLATE 10MG TAB TAKE ONE-HALF TABLET BY MOUTH ORAL ACTIVE LUISAWild 2015 [facility] ASPIRIN 325MG TAB TAKE ONE TABLET BY MOUTH EVERY DAY ORAL ACTIVE DANIEL JOE 2009 [facility] LISINOPRIL 40MG TAB TAKE ONE TABLET BY MOUTH EVERY DAY ORAL ACTIVE LUISAL MAME E 2015 [facility] MULTIVITAMI NS CAP/TAB TAKE ONE TABLET BY MOUTH EVERY DAY ORAL ACTIVE LUISAWild 2015 [facility] NAPROXEN 250MG TAB TAKE ONE-HALF TABLET BY MOUTH PRN ORAL ACTIVE DANIEL JOE 2009 [facility] Allergies, Adverse Reactions, Alerts Combined list of allergies from Department of [facility] and [facility] facilities. It does not include entries that were removed or entered in error. Substance Category Reaction Severity Reaction type Status Date Reported Comments Source CEFADROXIL Propensity to adverse reactions to drug (finding) Bleeding active 2 [facility] HCTZ HYDROCHLOROTH IAZIDE Propensity to adverse reactions to drug (finding) Gout active 6 [facility] METOPROLOL Propensity to adverse reactions to drug (finding) Fatigue active 8 [facility] Immunizations Combined list of available immunizations from the Department of [facility] and [facility] facilities. Immunization Series Date Given Administered By Site Reaction Lot Number CVX Code Drug Motorcycle Technician Status Comments Source COVID-19 (PENRITH), MRNA, LNP-S, PF, 30 MCG/0.3 ML DOSE 2 2020 208 complet ed PFR; [id number]; 1 [facility] COVID-19 (P[facility]RITH), MRNA, LNP-S, PF, 30 MCG/0.3 ML DOSE 1 2020 208 complet ed PFR; [id number]; 1 [facility] PNEUMOCOCCAL POLYSACCHARID E PPV23 2017 33 complet ed [employer] and co,[id number] [id number] 20 [facility] TDAP 2017 115 complet ed sanofi pastuer [id number], [facility] PNEUMOCOCCAL CONJUGATE PCV 13 2015 133 complet ed [employer],M79 321,12/08 [facility] ZOSTER LIVE 2015 121 complet ed [employer],[id number] [id number] 16 [facility] Social History Combined list of available smoking, tobacco, and other social history from [facility] of [facility] and [facility] facilities. 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
--- OUTSIDE RECORDS SUMMARY | 2024-09-09 14:30 | XMS_ITS | Encounter Summary ---
Author Organization [facility] Address [address], [place] [address] Care Team Providers Care Galvanizing Pot Runner Name Role Phone Kristine Brown MD Primary Care Provider [phone] Encounter Details Date Type Department Care Team (Latest Contact Info) Description 09/09/2024 2:30 PM CDT Office Visit Ophthalmology at [facility] 401 [facility] 401 [facility]. [place], [place] [phone] Iraj Garcia MD [address] [place] [phone] 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 right eye [...] injection. If this occurs, you may use xrth-bwh-fvdozqf tear dropsor ointment from a pharmacy to provide some relief of symptoms. However, you SHOULD NOT experience symptoms of SIGNIFICANT PAIN, HEADACHE, LIGHT SENSITIVITY, or SUDDEN CHANGES IN VISION following an injection, especially occurring a day or more following the procedure. If any of these occur, call the CARELINE immediately at and ask to speak with the doctor personal care attendant. These can be signs of a potentially [...] 10/2023) Eye Med/Surg History: pcIOL OU (11/2023, [facility]) Relevant Medical History: Hypertension Glaucoma Meds: None [...] Care Team (Late st Contact Info) Description 10/07/2024 2:45 PM CDT Appointment Ophthalmology at [address] [place] [address] Iraj Garcia MD [address] [place] [phone] 10/11/2024 10:00 AM CDT Appointment Ophthalmology at [facility] [address] [place] [address] [place] [phone] 10/11/2024 10:30 AM CDT Appointment Ophthalmology at [facility] [address] [place] [address] [place] [address] [place] [address] documented as of this encounter Procedures Procedure [...] MG/0.05ML Route: Intravitreal, Site: Right Eye ND: [id number], Lot: [id number], Expiration date: 10/22/2025, Waste: 0 mL us [...] Eye documented in this encounter Care Teams Galvanizing Pot Runner Relationship Specialty [place] [address] [place] [address] PCP - General Family Practice 03/25/13 documented as of this encounter
[2024-09-26] VITALS (23 sets, daily range): BP systolic 143–188; BP diastolic 91–114; PULSE 65–93; RESP 10–28; TEMP 36.7; O2SAT 84–95; BMI 31.9
--- OUTSIDE RECORDS SUMMARY | 2024-09-26 15:53 | XMS_ITS | Encounter Summary ---
Author Organization [facility] Address [address], [place] [address] Care Team Providers Care Chief Diversity Officer Name Role Phone Kristine Bronw MD Primary Care Provider [phone] Encounter Details Date Type Department Care Team (Late st Contact Info) Description 09/29/2009 Correspondence External to External, [place] [address] MED HX AND MEDICATIONS Social History Tobacco Use Types Packs/Day Years Used Date Smoking Tobacco: Never Assessed Sex and Gender Information Value Date Recorded Sex Assigned at Not on file Legal Sex Male 4:58 AM CDT Gender Identity Not on file Sexual Orientation Not on file documented as of this encounter Progress Notes * External, Provider - 09/29/2009 12:00 AM CDT GETTER documented in this encounter Plan of Treatment Upcoming Encounters Date Type Department Care Team (Late st Contact Info) Description 10/07/2024 2:45 PM CDT Appointment Ophthalmology at [facility] [address] [place], [place] [phone] Iraj Garcia MD [address] [place] [phone] 10/11/2024 10:00 AM CDT Appointment Ophthalmology at [facility] [place] [address] [place] [phone] 10/11/2024 10:30 AM CDT Appointment Ophthalmology at [facility] [address] [place] [phone] [place] [address] [place], [place] [phone] documented as of this encounter Visit Diagnoses Not on filedocumented in this encounter Care Teams Chief Diversity Officer Relationship Specialty [place] [address] [place] [address] PCP - General Family Practice 03/25/13 documented as of this encounter
--- OUTSIDE RECORDS SUMMARY | 2024-09-26 15:53 | XMS_ITS | Clinical Summary ---
Author Organization [facility] Address [address] [place] [address] Care Team Providers Care Lead Clinical Research Coordinator Name Role Phone Unavailable Primary Care Provider Unavailabl e Source Comments Patient records contain information from all sites at [facility]. For routine questions regarding patient records, call [phone] during business hours, M-F 8:00 AM - 5:00 PM Central Time. Record requests for emergency care only can be directed to [phone] at any time.[facility] Social History Tobacco Use Types Packs/Day Years Used Date Smoking Tobacco: Never Assessed Nutrition Answer Date Recorded Nutrition: EVOO Fat Source Unknown 05/09 Nutrition: Servings of Fruits/Vegetables per Day Not on file 05/09/2022 Dental Answer Date Recorded Dental: Regular Dentist Unknown 10/16/19 Sex and Gender Information Value Date Recorded Sex Assigned at Not on file Legal Sex Male 11:45 AM AUDIO/VISUAL MANAGER Gender Identity Not on file Sexual Orientation Not on file Plan of Treatment Health Maintenance Due Date Last Done Comments Hepatitis C Screening 1945 Zoster Vaccines (2 of 3) 02/03/2016 12/09/2015 RSV vaccine - (32-3 6 weeks) or 60+ years (1 - 1-dose 75+ series) 2022 COVID-19 Vaccine (3 - 2023-2 5 season) 2023 06/22/2020, 05/29/2020 Influenza Vaccine (#1) 2024 , 01/23/2016 Depression Screening (Annual PHQ-2) 04/24/2024 Fall Risk Screen (Annual) 04/24/2024 DTaP,Tdap,and Td Vaccines (3 - Td or Tdap) 03/06/2028 03/06/2018, 11/30/2012 Pneumococcal vaccine (50+ years) Completed 01/07/2021, 03/06/2018, 12/09/2015 IPV Vaccines Aged Out No longer eligi ble based on patient's age to complete this topic Insurance [employer]
--- OUTSIDE RECORDS SUMMARY | 2024-09-26 15:53 | XMS_ITS | Clinical Summary ---
Author Organization [facility] Address [address] [place] [address] Care Team Providers Care Assistant To The President Name Role Phone Kristine Brown MD Primary Care Provider [phone] Source Comments You are receiving this document [...] for each transition of care or referral. [facility] Allergies Active Allergy Reactions Criticality Noted Date Comments Cefadroxil Other, see comments 06/02/2021 Bloody diarrhea Oxycodone Other, see comments 11/09/2011 Patient refuses to take it due to family addiction issues. Medications Multiple Vitamins-Iron (MULTIVITAMIN/I STEVE OR) Active amLODIPine (NORVASC) 10 MG tablet Take 1 Tab by mouth daily. 90 Tab 3 7 Active allopurinol (ZYLOPRIM) 300 MG tablet Take 1 Tab by mouth daily. 90 Tab 3 7 Active predniSONE (DELTASONE) 5 MG tablet TAKE ONE TABLET BY MOUTH EVERY DAY 90 Tab 1 7 Active Additional Information Patient not taking.Reported on 07/12/2017 lisinopril (ZESTRIL) 40 MG tablet TAKE 1 TABLET BY MOUTH DAILY. 90 Tab 8 Active tamsulosin (FLOMAX) 0.4 MG CAPS capsule 0 Active amoxicillin (AMOXIL) 500 MG capsule Take 2 Capsules (1,000 mg) by mouth two times a day. 2 Active GAVILYTE-G 236 g oral solution Take by mouth. 2 Active allopurinol (ZYLOPRIM) 300 MG tablet Take 1 Tablet (300 mg) by mouth daily. Active amLODIPine (NORVASC) 10 MG tablet Take 1 Tablet (10 mg) by mouth daily. 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 Madyson Epperson RN 11/27/2015, 4:49 PM ; HTN (hypertension) (HRC) Nurse managed Encounters Date Type Department Care Team Description 09/09/2024 2:30 PM CDT Office Visit Ophthalmology at [address] 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) from Last 3 Months Immunizations Immunization Administration Dates Next Due Influenza, Unspecified Formulation [...] file Not on file Not on file Last Filed Vital Signs Vital Sign Reading Time Taken Comments Blood Pressure 143/87 07/26/2017 8:48 AM CDT Pulse 72 12/29/2022 11:05 AM CDT Temperature 38.2 C (100.7 F) 07/14/2016 1:46 PM CDT Respiratory Rate 14 05/19/2016 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 Oxygen Saturation - - Inhaled Oxygen Concentration - - Weight 108 kg (238 lb) 07/26/2017 8:48 AM CDT Height 182.9 cm (6') 2017 2:30 PM CDT Body Mass Index 32.28 2017 2:30 PM CDT Plan of Treatment Upcoming Encounters Date Type Department Care Team (Late st Contact Info) Description 10/07/2024 2:45 PM CDT Appointment Ophthalmology at [address] [address] Iraj Garcia MD [address] [place] [address] 10/11/2024 10:00 AM CDT Appointment Ophthalmology at [facility] [address] [place] [address] 10/11/2024 10:30 AM CDT Appointment Ophthalmology at [facility] [address] [place] [address] [place] [address] [place] [address] Health Maintenance Due Date Last Done Comments Hep C Screening (Preventive Services) 1945 Zoster/Shingles Vaccine (2 o f 3) 02/03/2016 12/09/2015 RSV Vaccine (1 - 1-dose 75+ series) 2022 COVID-19 Vaccine (3 - 2023-2 5 season) 2023 06/22/2020, 05/29/2020 Medicare Annual Wellness Visit 04/24/2024 Influenza Vaccine (Season Ended) 2024 02/25/2022, 01/23/2016 DTaP/Tdap/Td Vaccine (3 - Tdap) 03/06/2028 03/06/2018, 11/30/2012 Cholesterol Discontinued 01/30/2015, 11/19/2012 Pneumococcal Vaccine 50+ Yrs Completed , 03/06/2018, 12/09/2015 HepA Vaccine Aged Out No longer eligi ble based on patient's age to complete this topic HepB Vaccine Aged Out No longer eligi ble based on patient's age to complete this topic Hib Vaccine Aged Out No longer eligi ble based on patient's age to complete this topic IPV (Polio) Vaccine Aged Out No longe r eligible based on patient's age to complete this topic MCV4 Vaccine Aged Out No longer eligi ble based on patient's age to complete this topic Meningococcal B Vaccine Aged Out No l onger eligible based on patient's age to complete this topic Procedures Procedure Name Priority Date/Time Associated Diagnosis Comments INTRAVITREAL INJECTION PHARMACOLOGIC AGENT OD RIGHT EYE Routine 09/09/2024 4:36 PM CDT 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) INTRAVITREAL INJECTION PHARMACOLOGIC AGENT OD RIGHT EYE Routine 08/05/2024 10:40 AM CDT 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) INTRAVITREAL INJECTION PHARMACOLOGIC AGENT OU BOTH EYES Routine 07/03/2024 8:23 AM CDT 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 Narrative [facility] - 09/09/2024 4:36 PM CDT Time Out 09/09/2024. 3:08 PM. Confirmed correct patient, procedure, site, and patient consented. Injection: 2 mg aflibercept 2 MG/0.05ML Route: Intravitreal, Site: Right Eye [facility] [place] 21281-981-31, Lot: [id number], Expiration date: 10/22/2025, Waste: 0 mL us Iraj Garcia MD OPHTH CLINIC PROCEDURES Final Re sult [facility] * Intravitreal injection pharmacologic agent OU both eyes (07/03/2024 8:23 AM CDT) Narrative [facility] - 07/03/2024 8:23 AM CDT Time Out Right Eye 07/01/2024. 4:27 PM. Confirmed correct patient, procedure, site, and patient consented. Injection: 8 mg aflibercept 8 MG/0.07ML (Patient supplied) Route: Intravitreal, Site: Right Eye NDC: 58718-587-71, Lot: [id number], Expiration date: 02/21/2025, Waste: 0 mL Left Eye 07/01/2024. 4:27 PM. Confirmed correct patient, procedure, site, and patient consented. Injection: 2 mg aflibercept 2 MG/0.05ML (Patient supplied) Route: Intravitreal, Site: Left Eye NDC: 78097-365-49, Lot: [id number], Expiration date: 12/23/2024, Waste: 0 mL us Iraj Garcia MD OPHTH CLINIC PROCEDURES Edited R esult - Final [facility] * LIPID PANEL AND DIRECT LDL(IF NEEDED) [...] 12:26 PM CDT Performed at [facility], [address] [place] [address] [place] Kristine Brown MD LAB_1 Final Result Performing Organization Address City/[facility]/ZIP Co de Phone Number [facility] [phone] from Last 3 Months or Most Recently Relevant to Health Maintenance Insurance MEDICARE ADVANTAGE [facility] DENTAL PLAN HP PREVENTIVE SR PREV TWOVISIT Care Teams Assistant To The President Relationship Specialty [place] [address] [place] [address] PCP - General Family Practice 03/25/13
--- OUTSIDE RECORDS SUMMARY | 2024-09-26 15:53 | XMS_ITS | Encounter Summary ---
Author Organization [facility] Address [address], [place] [address] Care Team Providers Care Customer Contact Representative Name Role Phone Kristine Brown MD Primary Care Provider Encounter Details Date Type Department Care Team (Late st Contact Info) Description 04/18/2016 Refill Order [facility] [address] [place], [place] [phone] [place] [address] [place], [place] [phone] Social History Tobacco Use Types Packs/Day Years [...] notified. Charlene Ortega CMA 05/05/2016, 6:11 PM CTOR OF EXHIBITS documented in this encounter Plan of Treatment Upcoming Encounters Date Type Department Care Team (Late st Contact Info) Description 10/07/2024 2:45 PM CDT Appointment Ophthalmology at [facility] [address] [facility] [address] [place] [address] Iraj Garcia MD [address] [place] [address] 10/11/2024 10:00 AM CDT Appointment Ophthalmology at [facility] [address] [place] [phone] 10/11/2024 10:30 AM CDT Appointment Ophthalmology at [facility] [address] [place] [phone] [place] [address] [place], [place] [phone] documented as of this encounter Visit Diagnoses Diagnosis Encounter for long-term (current) use of medications- Primary Encounter for long-term (current) use of other medications documented in this encounter Care Teams Customer Contact Representative Relationship Specialty [place] [address] [place], [place] [phone] PCP - General Family Practice 03/25/13 documented as of this encounter
--- OUTSIDE RECORDS SUMMARY | 2024-09-26 15:54 | XMS_ITS | Clinical Summary ---
Author Organization [facility] Address [address] [place] [address] Care Team Providers Care Rn Plastics Name Role Phone Miguel Dowling MD Primary Care Provider [phone] Allergies No known active allergies Medications LISINOPRIL PO Take by mouth. 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 Gender Identity Not on file Sexual Orientation Not on file Last Filed Vital Signs Vital Sign Reading Time Taken Comments Blood Pressure 91/72 03/29/2022 12:11 PM CAR RENTAL MANAGER Pulse 111 03/29/2022 12:21 PM CAR RENTAL MANAGER Temperature 36.6 C (97.9 F) 07/30/2011 6:27 PM CDT Respiratory Rate 25 03/29/2022 12:21 PM CAR RENTAL MANAGER Oxygen Saturation 92% 03/29/2022 12:16 PM CAR RENTAL MANAGER Inhaled Oxygen Concentration - - Weight 108.9 kg (240 lb) 03/29/2022 11:22 AM CAR RENTAL MANAGER Height 180.3 cm (5' 11) 03/29/2022 11:22 AM CAR RENTAL MANAGER Body Mass Index 33.47 03/29/2022 11:22 AM CAR RENTAL MANAGER Plan of Treatment Health Maintenance Due Date Last Done Comments ADVANCE CARE PLANNING 1945 ANNUAL REVIEW OF HM ORDERS 1945 DIABETES SCREENING 1945 URIC ACID 1945 HEPATITIS C SCREENING 1965 LIPID 1987 LUNG CANCER SCREENING 1997 FALL RISK ASSESSMENT 01/25/2012 MEDICARE ANNUAL WELLNESS VISIT 01/25/2012 ZOSTER VACCINE (2 of 3) 02/03/2016 12/09/2015 RSV VACCINE (1 - 1-dose 75+ series) 2022 COVID-19 VACCINE (3 - season) 2023 06/22/2020, 05/29/2020 PHQ-2 (once per calendar year) 2024 INFLUENZA VACCINE (Season Ended) 2024 02/25/2022, 01/23/2016 DTAP/TDAP/TD VACCINE (3 - Td or Tdap) 03/06/2028 03/06/2018, 11/30/2012 PNEUMOCOCCAL VACCINE 50+ YEARS Completed 01/07/2021, 03/06/2018, 12/09/2015 COLORECTAL CANCER SCREENING Discontinued FLEX SIG Discontinued 03/29/[address] COLONOGRAPHY Discontinued FIT Discontinued HPV VACCINE Aged Out No longer eligi ble based on patient's age to complete this topic MENINGITIS VACCINE Aged Out No longer eligible based on patient's age to complete this topic sDNA (Cologuard) Discontinued Procedures Procedure Name Priority Date/Time Associated Diagnosis Comments FLEXIBLE SIGMOIDOSCOPY Routine 11:35 AM CAR RENTAL MANAGER from Last 3 Months or Most Recently Relevant to Health Maintenance Results * FLEXIBLE SIGMOIDOSCOPY (03/29/2022 11:35 AM CAR RENTAL MANAGER) [facility] Flex Sig [place] [address] [address] Patient Name: Armen Crump Procedure Date: 03/29/2022 11:35 AM Date of : 1945 Admit Type: Outpatient Age: 77 Room: 1 Note Status: Finalized Attending MD: Camila Brar MD Total Sedation Time: 6 minutes Instrument Name: 418 [id number] Flex Sig Procedure: Flexible Sigmoidoscopy Indications: Preoperative assessment Providers: Camila Brar MD, Olive White RN Referring MD: Medicines: Fentanyl 50 micrograms IV, Midazolam 2 mg IV Complications: No immediate complications. Procedure: Pre-Anesthesia Assessment: - Prior to the procedure, a History and Physical was performed, and patient medications and allergies were reviewed. The patient is competent. The risks and benefits of the procedure and the sedation options and risks were discussed with the patient. All questions were answered and informed consent was obtained. Patient identification and proposed procedure were verified by the physician and the nurse in the pre-procedure area. Mental Status Examination: alert and oriented. Airway Examination: normal oropharyngeal airway and neck mobility. Respiratory Examination: clear to auscultation. CV Examination: normal. Prophylactic Antibiotics: The patient does not require prophylactic antibiotics. Prior Anticoagulants: The patient has taken no anticoagulant or antiplatelet agents. ASA Grade Assessment: II - A patient with mild systemic disease. After reviewing the risks and benefits, the patient was deemed in satisfactory condition to undergo the procedure. The anesthesia plan was to use moderate sedation / analgesia (conscious sedation). Immediately prior to administration of medications, the patient was re-assessed for adequacy to receive sedatives. The heart rate, respiratory rate, oxygen saturations, blood pressure, adequacy of pulmonary ventilation, and response to care were monitored throughout the procedure. The physical status of the patient was re-assessed after the procedure. After obtaining informed consent, the scope was passed under direct vision. The Colonoscope was introduced through the anus and advanced to the sigmoid colon. The flexible sigmoidoscopy was accomplished without difficulty. The patient tolerated the procedure well. The quality of the bowel preparation was excellent. Findings: The perianal and digital rectal examinations were normal. An infiltrative non-obstructing medium-sized mass was found in the proximal rectum, approximatelyu 18cm from the anal verge. The mass was non-circumferenti al. No bleeding was present. Tattoo was present distal to the mass. Three sessile polyps were found in the distal rectum. The polyps were 3 to 4 mm in size. These polyps were removed with a jumbo cold forceps. Resection and retrieval were complete. The exam was otherwise without abnormality. 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 - Three 3 to 4 mm polyps in the distal rectum, removed with a jumbo cold forceps. Resected and retrieved. - The examination was otherwise normal. Recommendation: - Discharge patient to home. - Plan to proceed with surgical excision on . Procedure Code(s): --- Professional --- 74159, Sigmoidoscopy, flexible; with biopsy, single or multiple Diagnosis Code(s): --- Professional --- C20, Malignant neoplasm of rectum K62.1, Rectal polyp Z01.818, Encounter for other preprocedural examination CPT copyright 2020 [employer]. All rights reserved. The codes documented in this report are preliminary and upon glazing machine operator review may be revised to meet current [...] AM RADIOLOGY RESULTS 03/29/2022 11:3 5 AM CAR RENTAL MANAGER us Camila Brar MD PROCEDURES Final Re sult RADIOLOGY RESULTS from Last 3 Months or Most Recently Relevant to Health Maintenance Insurance [employer] Care Teams Rn Plastics Relationship Specialty Start Date End Date Miguel Dowling MD [facility] [address] [place] [address] PCP - General Family Medicine 03/07/22
--- OUTSIDE RECORDS SUMMARY | 2024-09-26 15:54 | XMS_ITS | Patient Health Record ---
Author Organization [facility] Address [address] [place] [address] Care Team Providers Care Registered Dietitian Name Role Phone Miguel Dowling Primary Care Provider NATHANIEL Chu Unavailable [phone] None, None Unavailable Unavailable Allergies No Known Allergies Results Component Value Reference Range Notes MRI : Soft Tissue Neck W/WO Reviewed date:01/01/2024 06:00:09 PM Interpretation: Performing Lab: Notes/Report: Original Report CDI Location: [place]:[facility] EXAM: MR SOFT TISSUE NECK WITHOUT AND WITH CONTRAST CLINICAL INFORMATION: Right parotid gland mass. COMPARISON: PET/CT 09/28/2023. TECHNICAL INFORMATION: Sagittal T1, coronal STIR and T1, and axial T1, T2 fat-suppressed, and diffusion/ADC images were acquired through the neck. Following the intravenous administration of 20 mL gadoterate meglumine, T1 fat-suppressed coronal and axial images were acquired. INTERPRETATION: Corresponding to the hypermetabolic lesion on the comparison study, there is a well-defined T1/T2 hypointense soft tissue lesion in the deep lobe of the right parotid gland measuring 1.5 x 1.5 x 1.5 cm (series 108 image 19, series 117 image 11, series 7 image 8), with similar enhancement characteristics with the surrounding parotid gland and without appreciable change from the comparison study. No surrounding soft tissue inflammatory change. Normal left parotid gland No abnormal or enlarged nodes in the neck. Normal submandibular glands. Normal appearance of the pharyngeal mucosa and glottic/paraglottic structures. Subcentimeter T2 hyperintense left thyroid nodule; no concerning thyroid lesions which necessitate further characterization. Major vasculature in the neck is patent. Partially visualized scattered paranasal sinus mucosal thickening. Mastoid air cells are clear. Temporomandibular joints are aligned. Multilevel degenerative change in the cervical and upper thoracic spine with patent spinal canal. No aggressive appearing bone lesions. Lung apices are clear. Partial intracranial visualization demonstrates no acute pathology. 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 Read by: Moises Ko M.D. Reviewed and Electronically Signed by: Moises Ko M.D. Reason For Referral No Information Medications Medication SIG (Take, Route, Frequency, Duration) Notes Start Date End Date Status Lisinopril 11/29/2023 Active amLODIPine Besylate 10 MG Tablet TAKE 1 TABLET BY MOUTH DAILY* Oral; Duration: 90 Days Active Allopurinol 300 MG Tablet TAKE 1 TABLET BY MOUTH DAILY* Oral; Duration: 90 Days Active Ketorolac Tromethamine 0.5 % Solution Instill 1 drop into left eye 4 times a day. Start 1 day prior to surgery and use until gone. Do not exceed 4 weeks.* Ophthalmic; Duration: 25 Days Active prednisoLONE Acetate 1 % Suspension Ophthalmic; Duration: 25 Days Active Gatifloxacin 0.5 % Solution Instill 1 dr op into left eye 4 times a day. Start 1 day prior to surgery and use until gone. 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 [address] [place] [address] 12/07/2023 NATHANIEL MUHAMMAD Mass of right parotid gland K11.8 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 I do not have access to the imaging. I would like to review the images personally before making any further recommendations to the patient. Have requested disc with images for my review. Options will be monitoring if this is a small deep lobe mass of low malignant potential vs. Surgical resection. If surgery would entail deep lobe parotidectomy, risks may outweigh benefit but I can proveide more definite opinion after my personal review of the imaging. I will contact patient with additional thoughts/recommenda tions. Questions answered to his satisfaction. 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 I do not have access to the imaging. I would like to review the images personally before making any further recommendations to the patient. Have requested disc with images for my review. Options will be monitoring if this is a small deep lobe mass of low malignant potential vs. Surgical resection. If surgery would entail deep lobe parotidectomy, risks may outweigh benefit but I can proveide more definite opinion after my personal review of the imaging. I will contact patient with additional thoughts/recommenda tions. Questions answered to his satisfaction. Plan Of Treatment No Information Insurance Providers Payer Name Payer Address Payer Phone Subscriber Number Group Number Insured Name Patient Relationship to Insured Coverage Start Date Coverage End Date [employer] MEDICARE [address] [place], [place] [id number] Armen Crump Self - patient is the insured 4 MEDICARE [address] [place] [address] [id number] Armen Crump Self - patient is the insured 2 Medical (General) History Medical History History ICD Code HTN colorectal cancer Surgical History Surgery Date(Month/Year) rt knee replacement colorectal surgery
--- OUTSIDE RECORDS SUMMARY | 2024-09-26 15:54 | XMS_ITS | Clinical Summary ---
Author Organization [facility] Address [address] [place] [id number] Care Team Providers Care Curb Worker Name Role Phone Miguel Dowling MD Primary Care Provider [phone] Allergies Active Allergy Reactions Criticality Noted Date [...] it due to family addiction issues. Medications amLODIPine (NORVASC) 10 mg tablet Take 0.5-1 Tablets by mouth once daily. 1 Active allopurinoL (ZYLOPRIM) 300 mg tablet Take 300 mg by mouth once daily. 2 Active lisinopriL (PRINIVIL; ZESTRIL) 40 mg tablet Take 40 mg by mouth once daily. 1 Active enoxaparin (LOVENOX) 40 mg/0.4 mL injectionIndica tions:Rectal cancer (HC) Inject 0.4 mL (40 mg) subcutaneous once daily. 10.4 mL 04/03/2022 3:25 PM GEOLOGY PROFESSOR 2 Active Active Problems Problem Noted Date Diagnosed Date Paroxysmal atrial fibrillation 03/31/2022 Rectal cancer 03/31/2022 Polycythemia 03/31/2022 Overview (03/31/2022): Going back at least as far as 2014. No workup. Hypertension 03/31/2022 Gout 03/31/2022 Macular degeneration 03/31/2022 Obesity (BMI 30.0-34.9) 03/31/2022 REBECCA (obstructive sleep apnea) 03/31/2022 Prediabetes 03/31/2022 Immunizations Immunization Administration Dates Next Due COVID-19 vaccine (OMG 30mcg/0.3mL) P F, MDV 06/22/2020,05/29/2020 Social History Tobacco Use Types Packs/Day Years Used Date Smoking Tobacco: Former Cigarettes Q uit: 1971 Smokeless Tobacco: Never Comments:50 years ago Alcohol Use Standard Drinks/Week Comments Yes 2 (1 standard drink = 0.6 oz pur e alcohol) Social Connections Answer Date Recorded Frequency of Communication with Friends and Fami ly Not on file 05/13/2022 Sex and Gender Information Value Date Recorded Sex Assigned at Not on file Legal Sex Male 4:22 PM GEOLOGY PROFESSOR Gender Identity Not on file Sexual Orientation Not on file Obstetrics History Last Filed Vital Signs Vital Sign Reading Time Taken Comments Blood Pressure 142/78 04/03/2022 7:48 AM GEOLOGY PROFESSOR Pulse 105 04/03/2022 7:48 AM GEOLOGY PROFESSOR Temperature 37.1 C (98.7 F) 04/03/2022 7:48 AM GEOLOGY PROFESSOR Respiratory Rate 18 04/03/2022 7:48 AM GEOLOGY PROFESSOR Oxygen Saturation 92% 04/03/2022 7:48 AM GEOLOGY PROFESSOR Inhaled Oxygen Concentration - - Weight 106.3 kg (234 lb 5.6 oz) 022 11:00 AM GEOLOGY PROFESSOR Height 180.3 cm (5' 11) 03/31/2022 11: 30 AM GEOLOGY PROFESSOR Body Mass Index 32.69 03/31/2022 11:30 AM GEOLOGY PROFESSOR Plan of Treatment Health Maintenance Due Date Last Done Comments Tdap 1958 Depression screening for age 12+ 1959 BMI (ht and wt on same day) for age 18+ 1965 Hepatitis C screening for ag e 18-79 1965 Pneumococcal series for age 50+ (1 of 2 - PCV) 1966 Tetanus booster 1967 Zoster (shingles) series for age 50+ (1 of 2) 1997 Medicare Wellness for age 65+ 01/25/2012 RSV vaccine for adults or (1 - 1-dose 75+ series) 2022 COVID-19 vaccine series (3 - 2023- season) 2023 06/22/2020, 05/29/2020 Influenza Vaccine (Season Ended) 2024 Hepatitis B series for 19+ Aged Out N o longer eligible based on patient's age to complete this topic Insurance MEDICARE ADVANTAGE MR MEDICARE PART A HB ONLY Advance Directives * Full Code (Latest Code Status on File) Date Activated Date Inactivated Comments 03/31/2022 10:50 AM 04/03/2022 6:36 PM Question Answer Comments Code Status Discussion: Reviewed Preferences Care Teams Curb Worker Relationship Specialty Start Date End Date Miguel Dowling MD PCP - General Family Practice 01/21/21
--- NOTE | 2024-09-26 16:00 | CRLHL7_ITS ---
For Patients: As a result of the Cures Act, medical imaging exams and procedure reports are released immediately into your electronic medical record. You may view this report before your referring provider. If you have questions, please contact your health care provider. INDICATION: : chest pain/shortness of breath COMPARISON: None TECHNIQUE: Two view(s) of the chest FINDINGS/IMPRESSION: The cardiomediastinal silhouette and pulmonary vasculature are unremarkable. There is no focal airspace consolidation, pleural effusion, or pneumothorax. Questionable faint diffuse interstitial markings bilaterally, may represent pulmonary edema versus an acute infectious/inflammatory process in the appropriate clinical context. No displaced fractures. Dictated by Last Muller MD @ 09/26/2024 4:52:18 PM (Electronically Signed)
[2024-09-26 16:37] LABS: Basophils Absolute Auto 0.01 K/uL (0.00-0.30); Basophils Percent Auto 0.2 % (0.0-3.0); Eosinophils Percent Auto 1.9 % (0.0-7.0); Hematocrit 56.8 % (37.0-53.0); Hemoglobin* 19.4 gm/dL (13.5-17.5); Immature Granulocytes Abs Auto 0.03 K/uL (0.00-0.30); Immature Granulocytes Pct Auto 0.6 %; Lymphocytes Absolute Auto 1.43 K/uL (0.90-2.90); Lymphocytes Percent Auto 26.9 % (20-44); Mean Corpuscular HGB Conc 34 gm/dL (32-36); Mean Corpuscular Hemoglobin 30 pg (26-34); Mean Corpuscular Volume 89 fL (80-100); Monocytes Percent Auto 12.1 % (0.0-11.0); Neutrophils Percent Auto 58.3 % (42.0-72.0); Platelet Count* 184 K/uL (140-440); RDW Coefficient of Variation % 12.8 % (11.5-15.5); Red Blood Count 6.39 m/uL (4.30-5.90); White Blood Count* 5.31 K/uL (4.50-11.00)
[2024-09-26] MEDS: 0.9 % SODIUM CHLORIDE 1000 ml 1,000 ML IV ×2 (16:37→19:00)
[2024-09-26 16:42] LABS: Slide Review Reflex No
--- NOTE | 2024-09-26 16:46 | CRLHL7_ITS ---
For Patients: As a result of the Century Cures Act, medical imaging exams and procedure reports are released immediately into your electronic medical record. You may view this report before your referring provider. If you have questions, please contact your health care provider. INDICATION: Dizziness, vertigo, history colon cancer TECHNIQUE: CT Head without i.v. contrast. Coronal and sagittal reformats were obtained. COMPARISON: 09/28/2023 FINDINGS: CSF space: Unremarkable for age. Brain: No evidence of mass, acute infarction or hemorrhage is seen. No mass-effect or midline shift is seen. Mild diffuse cortical atrophy is noted. The brain parenchyma is otherwise normal in appearance with preservation of the glover-white matter junction. Calvarium: The visualized paranasal sinuses are well aerated. The mastoid air cells are clear. The visualized orbits are grossly unremarkable. The calvarium is unremarkable in appearance with no fractures identified. IMPRESSION: 1. No evidence of acute infarction, intracranial hemorrhage, or mass-effect seen. Prelim Report By Dr. Boubacar Larson @ 09/26/2024 5:32:50 PM ADDENDUM Please note that all CT scans at this facility use dose modulation, iterative reconstruction, and/or weight-based dosing when appropriate to reduce radiation dose to as low as reasonably achievable. Dictated by: MD @ 09/26/2024 17:32:57 (Electronically Signed)
--- NOTE | 2024-09-26 17:07 | ED.DIZZY ---
HPI - Dizziness General Date Seen: 09/26/24 Chief Complaint: Dizziness/Vertigo Stated Complaint: Dizzy, Light headed, AFIB, High Blood Pressure Time Seen by Provider: 09/26/24 15:59 Source: patient Mode of arrival: ambulatory Limitations: no limitations History of Present Illness HPI Narrative: Patient is a very nice gentleman who presents ambulatory to the emergency room for dizziness, he is feeling off balance and difficulty focusing since yesterday, he has no symptoms all when he lays down his only symptoms are when he sits up, and walks around he feels that it is worse when he 1st moves his head and then improves. He has noted no visual things, maybe a slight bit of shortness of breath with this. But no chest pain, denies any numbness and tingling or focal issues, no history of falls or injury. Questions whether not he may have vertigo, as he has had this before. Denies any ear ringing, any problems with discharge from his ears fevers chills or sweats, or other issues Has not come close to passing out, no leg swelling associated with this. Has had episodes of atrial fib in the past and says feels somewhat similar to this. MD elicited complaint: lightheadedness Pertinent past history: BPPV Onset (ago): day(s) Timing: gradual onset and awoke with symptoms Severity: moderate Description: sense of movement, room spinning, lightheadedness and off-balance History of similar symptoms: Yes Exacerbating factors: movement/ambulation and change in body position Relieving factors: remaining still and lying down Associated symptoms: denies other symptoms Stroke scale total: 0 Related Data Home Medications ?Medication ?Instructions ?Recorded ?Confirmed acetaminophen 325 mg tablet 650 mg PO Q6H PRN 05/09/22 07/04/24 (Tylenol) aspirin 325 mg tablet 325 mg PO Q6H PRN 05/09/22 07/04/24 aflibercept 2 mg/0.05 mL 2 mg intravitreal ONCE 05/22/23 07/04/24 intravitreal solution for injection (Eylea) gatifloxacin 0.5 % eye drops drp ophthalmic (eye) 11/06/23 07/04/24 ketorolac 0.5 % eye drops drp ophthalmic (eye) 11/06/23 07/04/24 prednisolone acetate 1 % eye drp ophthalmic (eye) 11/06/23 07/04/24 drops,suspension naproxen sodium 220 mg capsule 220 mg PO BID PRN 01/08/24 07/04/24 (Aleve) Previous Rx's ?Medication ?Instructions ?Recorded amlodipine 10 mg tablet 10 mg PO DAILY #90 tabs 07/05/24 lisinopril 40 mg tablet 40 mg PO QDAY #90 tabs 07/05/24 Allergies Allergy/AdvReac Type Severity Reaction Status Date / Time cefadroxil AdvReac GI Verified 07/04/24 13:41 upset/bloody stools Review of Systems Status of ROS: Reports: 10 or more systems reviewed and unremarkable except as noted in History and below [facility] Medical History Diabetes ?E11.9 - Type 2 diabetes mellitus without complications (ICD-10) Pre-procedure lab exam ?Z01.812 - Encounter for preprocedural laboratory examination (ICD-10) Elevated PSA measurement ?R97.20 - Elevated prostate specific antigen [PSA] (ICD-10) History of agent [place] exposure ?Z77.098 - Contact with and (suspected) exposure to other hazardous, chiefly nonmedicinal, chemicals (ICD-10) Surgical History Status post knee replacement (~01/28/21) ?Z96.659 - Presence of unspecified artificial knee joint (ICD-10) Social History Smoking Status: Former smoker Exam Narrative: Exam Narrative: On examination in room 1 he has seen, he is in no apparent distress, pupils equal round reactive to light there is no scleral icterus redness he does have some unilateral beating nystagmus, to the right. No visual field loss, a little bit of redness on the 5 o'clock position on his sclera just outside of his cornea on the right-hand side which she tells me is from recent shots for his macular degeneration. TMs bilaterally are normal, is neck is supple carotid upstrokes are full bilaterally with no bruits, JVP is flat, cranial nerves 3-12 are normal, chest is good air entry bilaterally no wheezing crackles noted heart sounds are normal fine were moves fingers nose testing are normal, appears right-handed, head of precision targeting strength good proximal distal muscle strength, and is all assessed he does not have a drift. Abdomen is soft, slightly distended, no tenderness to palpation bowel sounds are normal able to sit up for me, but this does reproduce some of his symptoms. Const: Vital Signs, click to edit/add: Vital Signs - 24 hr 09/26/24 15:59 09/26/24 16:00 09/26/24 16:01 Temperature 98.0 F Pulse Rate 78 77 Pulse Rate [Pulse Oximeter] 75 Respiratory Rate 20 26 H 16 Blood Pressure 188/104 H Blood Pressure [Ri ght Upper Arm] 188/104 H Pulse Oximetry 93 95 94 Oxygen Delivery Me thod Room Air 09/26/24 16:21 09/26/24 16:24 09/26/24 16:30 Temperature Pulse Rate 84 84 Pulse Rate [Pulse Oximeter] Respiratory Rate 26 H 18 18 Blood Pressure 171/114 H Blood Pressure [Ri ght Upper Arm] Pulse Oximetry 94 84 L Oxygen Delivery Me thod 09/26/24 16:32 09/26/24 16:45 09/26/24 17:02 Temperature Pulse Rate 73 74 Pulse Rate [Pulse Oximeter] Respiratory Rate 18 17 21 Blood Pressure 151/93 H Blood Pressure [Ri ght Upper Arm] Pulse Oximetry 92 92 Oxygen Delivery Me thod 09/26/24 17:04 09/26/24 17:15 Temperature Pulse Rate 70 73 Pulse Rate [Pulse Oximeter] Respiratory Rate 23 18 Blood Pressure 155/96 H Blood Pressure [Ri ght Upper Arm] Pulse Oximetry 93 94 Oxygen Delivery Me thod Documenting provider has reviewed patient's vital signs: yes Course Reevaluation(s) Time of Reevaluation #1: 19:31 Reevaluation #1: Patient knows he feels vastly improved, has no symptoms of any no to ambulate to bathroom, as the nurse to do a road test if he passes the road test, he is requesting to go home which I do not think is unreasonable, I would suggest Dramamine, follow-up with primary care would be also be a good idea in the next 3-5 days, he may require other help with this, we went over signs symptoms of worsening, and things that this does not look like it is any should follow-up with these occur. Vital Signs Vital signs: Initial Vital Signs Temperature 98.0 F 09/26/24 15:59 Temperature Source Temporal Artery Scan 09/26/24 15:59 Pulse Rate 75 09/26/24 15:59 Pulse Rhythm Regular 09/26/24 15:59 Respiratory Rate 20 09/26/24 15:59 Blood Pressure 188/104 H 09/26/24 15:59 Blood Pressure Mean 132 H 09/26/24 15:59 Blood Pressure Position Sitting 09/26/24 15:59 Pulse Oximetry 93 09/26/24 15:59 Oxygen Delivery Method Room Air 09/26/24 15:59 Vital Signs Temperature 98.0 F 09/26/24 15:59 Pulse Rate 75 09/26/24 15:59 Respiratory Rate 20 09/26/24 15:59 Blood Pressure 188/104 H 09/26/24 15:59 Pulse Oximetry 93 09/26/24 15:59 Oxygen Delivery Method Room Air 09/26/24 15:59 Temperature 98.0 F 09/26/24 15:59 Pulse Rate 73 09/26/24 17:15 Respiratory Rate 18 09/26/24 17:15 Blood Pressure 155/96 H 09/26/24 17:04 Pulse Oximetry 94 09/26/24 17:15 Oxygen Delivery Method Room Air 09/26/24 15:59 Medications Administered Medications: Discontinued Medications Generic Name Dose Route Start Last Admin Trade Name Freq PRN Reason Stop Dose Admin Sodium Chloride 1,000 mls @ 1,000 mls/hr 09/26/24 16:00 09/26/24 18:50 0.9 % Sodium Chloride 1000 Ml IV 09/26/24 16:59 Infused .Q1H DEANDRA Infusion Lorazepam 0.5 mg 09/26/24 16:47 09/26/24 17:14 Lorazepam 2 Mg/Ml Inj IVP 09/26/24 16:48 Not Given ONCE ONE Lorazepam 0.5 mg 09/26/24 17:13 09/26/24 17:16 Lorazepam 0.5 Mg Tablet PO 09/26/24 17:14 0.5 mg ONCE ONE Administration MDM - Dizziness MDM Narrative Medical decision making narrative: Life-threatening differential diagnosis considered include, CVA, other differential diagnosis include BPPV, labyrinthitis, Meniere's disease, vestibular neuronitis, migraine, multiple sclerosis, otitis media, viral syndrome as well as other etiologies Medical Records Attestation: I reviewed the patient's medical records. Lab Data Labs: Lab Results 09/26/24 09/26/24 Range/Units 16:01 16:20 WBC 5.31 (4.50-11.00) K/uL RBC 6.39 H (4.30-5.90) m/uL Hgb 19.4 H (13.5-17.5) gm/dL Hct 56.8 H (37.0-53.0) % MCV 89 (80-100) fL MCH 30 (26-34) pg MCHC 34 (32-36) gm/dL RDW Coeff of [place] 12.8 (11.5-15.5) % Plt Count 184 (140-440) K/uL Neut % (Auto) 58.3 (42.0-72.0) % Lymph % (Auto) 26.9 (20-44) % [place] % (Auto) 12.1 H (0.0-11.0) % Eos % (Auto) 1.9 (0.0-7.0) % Baso % (Auto) 0.2 (0.0-3.0) % Neut # (Auto) 3.10 (1.7-7.0) K/uL Lymph # (Auto) 1.43 (0.90-2.90) K/uL [place] # (Auto) 0.60 (0.00-0.90) K/UL Eos # (Auto) 0.10 (0.00-0.50) K/uL Baso # (Auto) 0.01 (0.00-0.30) K/uL Abs Immat Gran (auto) 0.03 (0.00-0.30) K/uL Imm/Tot Granulo (auto) 0.6 % INR 0.91 (0.91-1.10) APTT 27 (23-33) Seconds D-Dimer Quant (PE/DVT) 0.33 (0.00-0.50) ug/ml Sodium 140 (135-149) mmol/L Potassium 4.3 (3.6-5.1) mmol/L Chloride 105 (96-114) mmol/L Carbon Dioxide 27 (20-32) mmol/L Anion Gap 8 (7-15) mEq/L BUN 17 (7-30) mg/dL Creatinine 0.9 (0.5-1.5) mg/dL Estimated Creat Clear 67.90 Estimated GFR 88 ml/min Glucose 170 H (60-115) mg/dL Calcium 9.5 (8.4-10.6) mg/dL Magnesium 2.1 (1.5-2.6) mg/dL C-Reactive Protein < 0.5 L (0.5-1.0) mg/dL NT-Pro-B Natriuret Pep 26 (See Note) pg/mL SARS-CoV-2 (PCR) Negative SARS-CoV-2 (Negative) Influenza Type A (PCR) Negative PCR FLU A (Negative) Influenza Type B (PCR) Negative PCR FLU B (Negative) RSV (PCR) Negative PCR RSV (Negative) POC Troponin I 0.00 L (0.01-0.04) ng/ml Imaging Data CT scan - head: Attestation: I have reviewed the pertinent imaging results. Radiologist's impression: Patient: [facility] Facility:?[facility] Patient ID:?[id number] Site Patient ID:?[id number]. Site :?[id number] Study:?CT-Head WO-09/26/2024 5:06:48 PM Ordering Physician:Karl Ley Final Report: INDICATION: Dizziness, vertigo, history colon cancer TECHNIQUE: CT Head without i.v. contrast. Coronal and sagittal reformats were obtained. COMPARISON: 09/28/2023 FINDINGS: CSF space: Unremarkable for age. Brain: No evidence of mass, acute infarction or hemorrhage is seen. No mass-effect or midline shift is seen. Mild diffuse cortical atrophy is noted. The brain parenchyma is otherwise normal in appearance with preservation of the glover-white matter junction. Calvarium: The visualized paranasal sinuses are well aerated. The mastoid air cells are clear. The visualized orbits are grossly unremarkable. The calvarium is unremarkable in appearance with no fractures identified. IMPRESSION: 1. No evidence of acute infarction, intracranial hemorrhage, or mass-effect seen. Prelim Report By Dr. Boubacar Larson @ 09/26/2024 5:32:50 PM ADDENDUM Please note that all CT scans at this facility use dose modulation, iterative reconstruction, and/or weight-based dosing when appropriate to reduce radiation dose to as low as reasonably achievable. Dictated by: MD @ 09/26/2024 17:32:57 (Electronic Signature) Discharge Plan Discharge Clinical Impression: Vertigo Patient Disposition: Home w/ Parent or Adult Instructions: Vertigo (ED), Dizziness (ED) Additional Instructions: Home rest suggest taking it easy for the next few days, pecan picker some Dramamine, this is juwa-krn-vazgdbl, also known as Antivert, this will help some of the symptoms, lots of fluids, if you have any weakness in your arms or legs or you start to develop any problems with speech sure your face looks asymmetrical then you need to come back as we are not seeing that here now today. These are all symptoms of a stroke which I do not think you are having. This usually runs its course over the next few days, return if increasing nausea vomiting or other issues. Activity Level: Light activity Prescriptions: No Action gatifloxacin 0.5 % drops ophthalmic (eye) prednisolone acetate 1 % drops,suspension ophthalmic (eye) ketorolac 0.5 % drops ophthalmic (eye) naproxen sodium [Aleve] 220 mg capsule 220 mg PO BID PRN acetaminophen [Tylenol] 325 mg tablet 650 mg PO Q6H PRN aspirin 325 mg tablet 325 mg PO Q6H PRN Eylea 2 mg/0.05 mL solution 2 mg intravitreal ONCE lisinopril 40 mg tablet 40 mg PO QDAY Qty: 90 3RF amlodipine 10 mg tablet 10 mg PO DAILY Qty: 90 3RF Follow Up/Referrals: Miguel Dowling MD [Primary Care Provider, Family Practice] Stand Alone Forms: [employer] Info Instructions
[2024-09-26 17:11] LABS: Chloride* 105 mmol/L (96-114)
[2024-09-26 17:12] LABS: Potassium* 4.3 mmol/L (3.6-5.1); Sodium* 140 mmol/L (135-149)
[2024-09-26 17:14] LABS: Blood Urea Nitrogen* 17 mg/dL (7-30); Creatinine* 0.9 mg/dL (0.5-1.5); Estimated Glomerular Filt Rate 88 ml/min
[2024-09-26 17:15] LABS: Anion Gap 8 mEq/L (7-15); Calcium* 9.5 mg/dL (8.4-10.6); Carbon Dioxide* 27 mmol/L (20-32); Glucose* 170 mg/dL (60-115); Magnesium* 2.1 mg/dL (1.5-2.6)
[2024-09-26] MEDS: LORazepam 0.5 MG TABLET PO (17:16)
[2024-09-26 17:22] LABS: PCR FLU A Negative PCR FLU A (Negative); PCR FLU B Negative PCR FLU B (Negative); PCR RSV Negative PCR RSV (Negative); SARS PCR* Negative SARS-CoV-2 (Negative)
[2024-09-26 17:26] LABS: Partial Thromboplastin Time* 27 Seconds (23-33); Prothrombin Time 13.1 Seconds
[2024-09-26 17:27] LABS: D Dimer Quantitative* 0.33 ug/ml (0.00-0.50); INR 0.91 (0.91-1.10)
[2024-09-26 17:34] LABS: C Reactive Protein* < 0.5 mg/dL (0.5-1.0); NT Pro B Type NatriureticPept* 26 pg/mL (See Note)
== END 2024-09-26 19:44 | disposition home or self-care (01) ==
PROVIDERS: Emergency Provider Family Medicine; PCP Family Medicine
DX: R42 Dizziness and giddiness (principal); R06.02 Shortness of breath; Z86.79 Personal history of other diseases of the circulatory system
CPT/HCPCS: 36415; 70450; 71046; 80048; 83735; 83880; 84484; 85025; 85379; 85610; 85730; 86140; 87631; 93005; 94761; 96361; 96374; 99284; 99285; A9270; J7030

== ENCOUNTER 2024-09-30 17:06 | Outpatient (CLI) | payer OTHER, SELFPAY | END 2024-09-30 17:07 | disposition home or self-care (01) | LOC: NFLDREF 10-01 01:56 | PROVIDERS: PCP Family Medicine; Referring Provider Family Medicine; Visit Provider Family Medicine | DX: R35.0 Frequency of micturition (principal) | CPT/HCPCS: 87086 ==

== ENCOUNTER 2024-10-03 18:43 | Emergency (ER) | payer OTHER, SELFPAY ==
--- OUTSIDE RECORDS SUMMARY | 2022-01-11 09:30 | XMS_ITS | Continuity of Care Document ---
Author Name [facility] Organization [facility] Care Team Providers Care Stem Setter Name Role Phone [facility] Unavailable Unavailable Problems Combined list of problems from Department of [facility] and [facility] facilities. It does not include entries that were removed or entered in error. Problem Status Onset Date Problem Type Date of Resolution Comments Source Basal cell carcinoma of skin Active Condition Mar 17, 2017 Entered By: ALEJANDRO REN Comment: 03.15.2017 R Nose. [facility] Benign essential hypertension (SNOMED CT 7062336) Active Condition [facility] Elevated PSA Active Condition [facility] Erythrocytosis Active Condition [facility] Gout Active Condition [facility] H/O: vasectomy Active Condition [facility] Health Maintenance (ICD-9-CM V65.9) Active Condition [facility] History of tonsillectomy Active Condition [facility] Hyperlipidemia Active Condition [facility] Obstructive sleep apnea of adult Active Condition [facility] Medications Combined list of outpatient medications from [facility] and [facility] facilities.Medications provided include 1) outpatient medications from the last 15 months, and 2) patient-reported medications. Medication Details Route Status Patient Instructions Prescription Expires Prescription Number Last Dispense Date Ordering Provider Order Date Order Qty Source ALLOPURINOL TAB TAKE BY MOUTH ORAL ACTIVE LUISAWild 2016 [facility] AMLODIPINE BESYLATE 10MG TAB TAKE ONE-HALF TABLET BY MOUTH ORAL ACTIVE LUISAWild 2015 [facility] ASPIRIN 325MG TAB TAKE ONE TABLET BY MOUTH EVERY DAY ORAL ACTIVE DANIEL JOE 2009 [facility] LISINOPRIL 40MG TAB TAKE ONE TABLET BY MOUTH EVERY DAY ORAL ACTIVE LUISAL MAME E 2015 [facility] MULTIVITAMI NS CAP/TAB TAKE ONE TABLET BY MOUTH EVERY DAY ORAL ACTIVE LUISAWild 2015 [facility] NAPROXEN 250MG TAB TAKE ONE-HALF TABLET BY MOUTH PRN ORAL ACTIVE DANIEL JOE 2009 [facility] Allergies, Adverse Reactions, Alerts Combined list of allergies from Department of [facility] facilities. It does not include entries that were removed or entered in error. Substance Category Reaction Severity Reaction type Status Date Reported Comments Source CEFADROXIL Propensity to adverse reactions to drug (finding) Bleeding active 2 [facility] HCTZ HYDROCHLOROTH IAZIDE Propensity to adverse reactions to drug (finding) Gout active 6 [facility] METOPROLOL Propensity to adverse reactions to drug (finding) Fatigue active 8 [facility] Immunizations Combined list of available immunizations from the Department of [facility] facilities. Immunization Series Date Given Administered By Site Reaction Lot Number CVX Code Drug Trekking Guide Status Comments Source COVID-19 (NUMBER26), MRNA, LNP-S, PF, 30 MCG/0.3 ML DOSE 2 2020 208 complet ed PFR; [id number]; 1 [facility] COVID-19 (NUMBER26), MRNA, LNP-S, PF, 30 MCG/0.3 ML DOSE 1 2020 208 complet ed PFR; [id number]; 1 [facility] PNEUMOCOCCAL POLYSACCHARID E PPV23 2017 33 complet ed [employer],[id number] [id number] 20 [facility] TDAP 2017 115 complet ed sanofi pastuer [id number], [facility] PNEUMOCOCCAL CONJUGATE PCV 13 2015 133 complet ed [facility] [employer],M79 321,12/08 [facility] ZOSTER LIVE 2015 121 complet ed [employer],[id number] [id number] 16 [facility] Social History Combined list of available smoking, tobacco, and other social history from Department of [facility] and [facility] facilities. Social History Type Response Date Comment Sourc e Tobacco smoking status [facility]-TOBACCO FORMER USER 01/11/2022 [facility] of [facility]11[facility] History of tobacco use [facility]-TOBACCO QUIT 1 5 YRS OR MORE 03/20/2019 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
--- OUTSIDE RECORDS SUMMARY | 2022-01-11 09:30 | XMS_ITS | Continuity of Care Document ---
Author Name [facility] Organization [facility] Care Team Providers Care Supervisor Ticket Sales Name Role Phone [facility] Unavailable Unavailable Problems Combined list of problems from Department of [facility] and [facility] facilities. It does not include entries that were removed or entered in error. Problem Status Onset Date Problem Type Date of Resolution Comments Source Basal cell carcinoma of skin Active Condition Mar 17, 2017 Entered By: ALEJANDRO REN Comment: 03.15.2017 R Nose. [facility] Benign essential hypertension (SNOMED CT 1546170) Active Condition [facility] Elevated PSA Active Condition [facility] Erythrocytosis Active Condition [facility] Gout Active Condition [facility] H/O: vasectomy Active Condition [facility] Health Maintenance (ICD-9-CM V65.9) Active Condition [facility] History of tonsillectomy Active Condition [facility] Hyperlipidemia Active Condition [facility] Obstructive sleep apnea of adult Active Condition [facility] Medications Combined list of outpatient medications from [facility] and [facility] facilities.Medications provided include 1) outpatient medications from the last 15 months, and 2) patient-reported medications. Medication Details Route Status Patient Instructions Prescription Expires Prescription Number Last Dispense Date Ordering Provider Order Date Order Qty Source ALLOPURINOL TAB TAKE BY MOUTH ORAL ACTIVE LUISAWild 2016 [facility] AMLODIPINE BESYLATE 10MG TAB TAKE ONE-HALF TABLET BY MOUTH ORAL ACTIVE LUISAWild 2015 [facility] ASPIRIN 325MG TAB TAKE ONE TABLET BY MOUTH EVERY DAY ORAL ACTIVE DANIEL JOE 2009 [facility] LISINOPRIL 40MG TAB TAKE ONE TABLET BY MOUTH EVERY DAY ORAL ACTIVE LUISAL MAME E 2015 [facility] MULTIVITAMI NS CAP/TAB TAKE ONE TABLET BY MOUTH EVERY DAY ORAL ACTIVE LUISAWild 2015 [facility] NAPROXEN 250MG TAB TAKE ONE-HALF TABLET BY MOUTH PRN ORAL ACTIVE DANIEL JOE 2009 [facility] Allergies, Adverse Reactions, Alerts Combined list of allergies from Department of [facility]. It does not include entries that were removed or entered in error. Substance Category Reaction Severity Reaction type Status Date Reported Comments Source CEFADROXIL Propensity to adverse reactions to drug (finding) Bleeding active 2 [facility] HCTZ HYDROCHLOROTH IAZIDE Propensity to adverse reactions to drug (finding) Gout active 6 [facility] METOPROLOL Propensity to adverse reactions to drug (finding) Fatigue active 8 [facility] Immunizations Combined list of available immunizations from the Department of [facility] and [facility]. Immunization Series Date Given Administered By Site Reaction Lot Number CVX Code Drug Epoxy Fabrication Supervisor Status Comments Source COVID-19 (Epizyme), MRNA, LNP-S, PF, 30 MCG/0.3 ML DOSE 2 2020 208 complet ed PFR; [id number]; 1 [facility] COVID-19 (Epizyme), MRNA, LNP-S, PF, 30 MCG/0.3 ML DOSE 1 2020 208 complet ed PFR; [id number]; 1 [facility] PNEUMOCOCCAL POLYSACCHARID E PPV23 2017 33 complet ed [employer],[id number] [id number] 20 [facility] TDAP 2017 115 complet ed sanofi pastuer [id number], [facility] PNEUMOCOCCAL CONJUGATE PCV 13 2015 133 complet ed [employer],M79 321,12/08 [facility] ZOSTER LIVE 2015 121 complet ed [employer],[id number] [id number] 16 [facility] Social History Combined list of available smoking, tobacco, and other social history from Department of [facility] and [facility] facilities. Social History Type Response Date Comment Sourc e Tobacco smoking status 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
--- OUTSIDE RECORDS SUMMARY | 2024-09-09 14:30 | XMS_ITS | Encounter Summary ---
Author Organization [facility] Address [address] [address] Care Team Providers Care Tank Carpenter Name Role Phone Kristine Brown MD Primary Care Provider [phone] Encounter Details Date Type Department Care Team (Latest Contact Info) Description 09/09/2024 2:30 PM CDT Office Visit Ophthalmology at [facility] 401 [facility] 401 [facility]. [place], [place] [phone] Iraj Garcia MD [address] [place] [phone] 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 right eye [...] injection. If this occurs, you may use saei-ytk-pwisdhr tear dropsor ointment from a pharmacy to provide some relief of symptoms. However, you SHOULD NOT experience symptoms of SIGNIFICANT PAIN, HEADACHE, LIGHT SENSITIVITY, or SUDDEN CHANGES IN VISION following an injection, especially occurring a day or more following the procedure. If any of these occur, call the CARELINE immediately at and ask to speak with the doctor delivery professional. These can be signs of a potentially [...] 10/2023) Eye Med/Surg History: pcIOL OU (11/2023, [facility]) Relevant Medical History: Hypertension Glaucoma Meds: None [...] 10/14/2024 3:15 PM CDT Appointment Ophthalmology at [address] [place] [address] Iraj Garcia MD [address] [place] [phone] documented as of this encounter Procedures Procedure [...] 2 MG/0.05ML Route: Intravitreal, Site: Right Eye [facility]: [id number], Lot: [id number], Expiration date: 10/22/2025, Waste: 0 mL us [...] Eye documented in this encounter Care Teams Tank Carpenter Relationship Specialty [place] [address] [place] [address] PCP - General Family Practice 03/25/13 documented as of this encounter
--- OUTSIDE RECORDS SUMMARY | 2024-10-03 18:44 | XMS_ITS | Clinical Summary ---
Author Organization [facility] Address [address] [place] [address] Care Team Providers Care Looping Machine Operator Name Role Phone Unavailable Primary Care Provider Unavailabl e Source Comments Patient records contain information from all sites at [facility]. For routine questions regarding patient records, call [phone] during business hours, M-F 8:00 AM - 5:00 PM Central Time. Record requests for emergency care only can be directed to [phone] at any time.[facility] Social History Tobacco Use Types Packs/Day Years Used Date Smoking Tobacco: Never Assessed Nutrition Answer Date Recorded Nutrition: EVOO Fat Source Unknown 05/09 Nutrition: Servings of Fruits/Vegetables per Day Not on file 05/09/2022 Dental Answer Date Recorded Dental: Regular Dentist Unknown 10/16/19 Sex and Gender Information Value Date Recorded Sex Assigned at Not on file Legal Sex Male 11:45 AM OIL SEAL ASSEMBLER Gender Identity Not on file Sexual Orientation [...] patient's age to complete this topic Insurance [facility]
--- OUTSIDE RECORDS SUMMARY | 2024-10-03 18:45 | XMS_ITS | Encounter Summary ---
Author Organization [facility] Address [address], [place] [address] Care Team Providers Care Stranding Machine Operator Helper Name Role Phone Kristine Brown MD Primary Care Provider [phone] Reason for Visit * Reason Comments Reschedule Appointment Encounter Details Date Type Department Care Team (Late st Contact Info) Description 10/02/2024 Telephone Ophthalmology at [facility] [address] [facility] [address] [facility]. [place], [place] [phone] Iraj Garcia MD [address] [place] [phone] Reschedule Appointment Social History Tobacco Use Types Packs/Day Years [...] as of this encounter Nursing Notes * Katt Luu - 10/02/2024 10:43 AM CDT Scheduled. * Makeda Russell COMT - 10/02/2024 10:15 AM CDT Please call and offer 3:15 on 10/14/24. Thanks. LOPEZ [place] 10/02/2024, 10:16 AM * Jadyn Dougherty - 10/02/2024 9:49 AM CDT Pt called because he needs to RS his appt due to scheduling conflict 4-5 Weeks for INJECTION appointment with OCT MACULA scan and Eylea 2 mg injection right eye. Pt appt is 10/07 could someone pleaseassist with getting Pt Rs Thank you documented in this encounter Plan of Treatment Upcoming Encounters Date Type Department Care Team (Late st Contact Info) Description 10/14/2024 3:15 PM CDT Appointment Ophthalmology at [facility] [address] [place], [place] [phone] Iraj Garcia MD [address] [place] [phone] documented as of this encounter Visit Diagnoses Not on filedocumented in this encounter Care Teams Stranding Machine Operator Helper Relationship Specialty [place] [address] [place] [address] PCP - General Family Practice 03/25/13 documented as of this encounter
--- OUTSIDE RECORDS SUMMARY | 2024-10-03 18:45 | XMS_ITS | Encounter Summary ---
Author Organization [facility] Address [address] [address] Care Team Providers Care Rabbet Operator Name Role Phone Kristine Brown MD Primary Care Provider Encounter Details Date Type Department Care Team (Late st Contact Info) Description 04/18/2016 Refill Order [facility] [address] [place], [place] [phone] [place] [address] [place], [place] [phone] Social History Tobacco Use Types Packs/Day Years [...] notified. Charlene Ortega CMA 05/05/2016, 6:11 PM L INSTALLER documented in this encounter Plan of Treatment Upcoming Encounters Date Type Department Care Team (Late st Contact Info) Description 10/14/2024 3:15 PM CDT Appointment Ophthalmology at [facility] [address] [place] [address] Iraj Garcia MD [address] [place] [phone] documented as of this encounter Visit Diagnoses Diagnosis Encounter for long-term (current) use of medications- Primary Encounter for long-term (current) use of other medications documented in this encounter Care Teams Rabbet Operator Relationship Specialty [place] [address] [place] [address] PCP - General Family Practice 03/25/13 documented as of this encounter
--- OUTSIDE RECORDS SUMMARY | 2024-10-03 18:45 | XMS_ITS | Clinical Summary ---
Author Organization [facility] Address [address] [place] [address] Care Team Providers Care Classer Name Role Phone Miguel Dowling MD Primary Care Provider [phone] Allergies Active Allergy Reactions Criticality Noted Date [...] once daily. 10.4 mL 04/03/2022 3:25 PM MALE INFERTILITY SPECIALIST 2 Active Active Problems Problem Noted Date Diagnosed Date Paroxysmal atrial fibrillation 03/31/2022 Rectal cancer 03/31/2022 Polycythemia 03/31/2022 Overview (03/31/2022): Going back at least as far as 2014. No workup. Hypertension 03/31/2022 Gout 03/31/2022 Macular degeneration 03/31/2022 Obesity (BMI 30.0-34.9) 03/31/2022 REBECCA (obstructive sleep apnea) 03/31/2022 Prediabetes 03/31/2022 Immunizations Immunization Administration Dates Next Due COVID-19 vaccine ([employer] 30mcg/0.3mL) P F, MDV 06/22/2020,05/29/2020 Social History [...] on file Legal Sex Male 4:22 PM MALE INFERTILITY SPECIALIST Gender Identity Not on file Sexual Orientation Not on file Obstetrics History Last Filed Vital Signs Vital Sign Reading Time Taken Comments Blood Pressure 142/78 04/03/2022 7:48 AM MALE INFERTILITY SPECIALIST Pulse 105 04/03/2022 7:48 AM MALE INFERTILITY SPECIALIST Temperature 37.1 C (98.7 F) 04/03/2022 7:48 AM MALE INFERTILITY SPECIALIST Respiratory Rate 18 04/03/2022 7:48 AM MALE INFERTILITY SPECIALIST Oxygen Saturation 92% 04/03/2022 7:48 AM MALE INFERTILITY SPECIALIST Inhaled Oxygen Concentration - - Weight 106.3 kg (234 lb 5.6 oz) 022 11:00 AM MALE INFERTILITY SPECIALIST Height 180.3 cm (5' 11) 03/31/2022 11: 30 AM MALE INFERTILITY SPECIALIST Body Mass Index 32.69 03/31/2022 11:30 AM MALE INFERTILITY SPECIALIST Plan of Treatment Health Maintenance Due Date [...] Code Status Discussion: Reviewed Preferences Care Teams Classer Relationship Specialty Start Date End Date Miguel Dowling MD PCP - General Family Practice 01/21/21
--- OUTSIDE RECORDS SUMMARY | 2024-10-03 18:45 | XMS_ITS | Clinical Summary ---
Author Organization [facility] Address [address] [place] [address] Care Team Providers Care Finish Sander Name Role Phone Kristine Brown MD Primary Care Provider [phone] Source Comments You are receiving this document [...] for each transition of care or referral. [facility] Allergies Active Allergy Reactions Criticality Noted Date [...] 11/06/15 Increase: Amlodipine to 10 mg. Madyson Epperson, RN 11/27/2015, 4:49 PM ; HTN (hypertension) (HRC) Nurse managed Encounters Date Type Department Care Team Description 10/02/2024 Telephone Ophthalmology at [address] [place] [address] Iraj Garcia MD Reschedule Appointment 09/09/2024 2:30 PM CDT Office Visit Ophthalmology at [address] 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 [address] Iraj Garcia MD [address] [place] [address] Health Maintenance Due Date Last Done Comments [...] of2 resultswithin the time period is included. [facility] EYE - 09/09/2024 4:36 PM CDT Time Out 09/09/2024. 3:08 PM. Confirmed correct patient, procedure, site, and patient consented. Injection: 2 mg aflibercept 2 MG/0.05ML Route: Intravitreal, Site: Right Eye ND: [id number], Lot: [id number], Expiration date: 10/22/2025, Waste: 0 mL Iraj Garcia MD OPHTH CLINIC PROCEDURES Final Re sult Performing Organization Address [facility] de Phone Number [facility] * Intravitreal injection pharmacologic agent OU both eyes (07/03/2024 8:23 AM CDT) [facility] EYE - 07/03/2024 8:23 AM CDT Time Out Right Eye 07/01/2024. 4:27 PM. Confirmed correct patient, procedure, site, and patient consented. Injection: 8 mg aflibercept 8 MG/0.07ML (Patient supplied) Route: Intravitreal, Site: Right Eye ND: [id number], Lot: [id number], Expiration date: 02/21/2025, Waste: 0 mL Left Eye 07/01/2024. 4:27 PM. Confirmed correct patient, procedure, site, and patient consented. Injection: 2 mg aflibercept 2 MG/0.05ML (Patient supplied) Route: Intravitreal, Site: Left Eye NDC: 32437-703-12, Lot: [id number], Expiration date: 12/23/2024, Waste: 0 mL Iraj Garcia MD OPHTH CLINIC PROCEDURES Edited R esult - Final Performing Organization Address [facility] Co de Phone Number [facility] * LIPID PANEL AND DIRECT LDL(IF [...] - 01/30/2015 12:26 PM CDT Performed at [facility], [address] [place] [address] us Kristine Brown MD LAB_1 Final Result [facility] [phone] from Last 3 Months or Most Recently Relevant to Health Maintenance Insurance MEDICARE [facility] PREVENTIVE SR PREV TWOVISIT Care Teams Finish Sander Relationship Specialty [place] [address] [place] [address] PCP - General Family Practice 03/25/13
--- OUTSIDE RECORDS SUMMARY | 2024-10-03 18:45 | XMS_ITS | Encounter Summary ---
Author Organization [facility] Address [address], [place] [address] Care Team Providers Care Breaker Mechanic Name Role Phone Kristine Brown MD Primary Care Provider [phone] Encounter Details Date Type Department Care Team (Late st Contact Info) Description 09/29/2009 Correspondence External to External, [place] [address] MED HX AND MEDICATIONS Social History Tobacco Use Types Packs/Day Years Used Date Smoking Tobacco: Never Assessed Sex and Gender Information Value Date Recorded Sex Assigned at Not on file Legal Sex Male 4:58 AM CDT Gender Identity Not on file Sexual Orientation Not on file documented as of this encounter Progress Notes * External, Provider - 09/29/2009 12:00 AM CDT D KILN DRAWER documented in this encounter Plan of Treatment Upcoming Encounters Date Type Department Care Team (Late st Contact Info) Description 10/14/2024 3:15 PM CDT Appointment Ophthalmology at [facility] [address] [facility] [address] [facility]. [place], [place] [id number] Iraj Garcia MD [address] [place] [phone] documented as of this encounter Visit Diagnoses Not on filedocumented in this encounter Care Teams Breaker Mechanic Relationship Specialty [place] [address] [place] [address] PCP - General Family Practice 03/25/13 documented as of this encounter
--- OUTSIDE RECORDS SUMMARY | 2024-10-03 18:45 | XMS_ITS | Clinical Summary ---
Author Organization [facility] Address [address] [place] [address] Care Team Providers Care Greens Cutter Name Role Phone Miguel Dowling MD Primary Care Provider [phone] Allergies No known active allergies Medications LISINOPRIL [...] on file Legal Sex Male 3:20 AM VACATION SALES ADVISOR Gender Identity Not on file Sexual Orientation Not on file Last Filed Vital Signs Vital Sign Reading Time Taken Comments Blood Pressure 91/72 03/29/2022 12:11 PM VACATION SALES ADVISOR Pulse 111 03/29/2022 12:21 PM VACATION SALES ADVISOR Temperature 36.6 C (97.9 F) 07/30/2011 6:27 PM CDT Respiratory Rate 25 03/29/2022 12:21 PM VACATION SALES ADVISOR Oxygen Saturation 92% 03/29/2022 12:16 PM VACATION SALES ADVISOR Inhaled Oxygen Concentration - - Weight 108.9 kg (240 lb) 03/29/2022 11:22 AM VACATION SALES ADVISOR Height 180.3 cm (5' 11) 03/29/2022 11:22 AM VACATION SALES ADVISOR Body Mass Index 33.47 03/29/2022 11:22 AM VACATION SALES ADVISOR Plan of Treatment Health Maintenance Due Date [...] Diagnosis Comments FLEXIBLE SIGMOIDOSCOPY Routine 11:35 AM VACATION SALES ADVISOR from Last 3 Months or Most Recently Relevant to Health Maintenance Results * FLEXIBLE SIGMOIDOSCOPY (03/29/2022 11:35 AM VACATION SALES ADVISOR) [facility] Flex Sig [place] [address] [place] [address] Patient Name: Armen Crump Procedure Date: 03/29/2022 [...] on . Procedure Code(s): --- Professional --- 49093, Sigmoidoscopy, flexible; with biopsy, single or multiple Diagnosis Code(s): --- Professional --- C20, Malignant neoplasm of rectum K62.1, Rectal polyp Z01.818, Encounter for other preprocedural examination CPT copyright 2020 [employer]. All rights reserved. The codes documented in this report are preliminary and upon manufacturing technologist review may be revised to meet current [...] AM RADIOLOGY RESULTS 03/29/2022 11:3 5 AM VACATION SALES ADVISOR us Camila Brar MD PROCEDURES Final Re sult RADIOLOGY RESULTS from Last 3 Months or Most Recently Relevant to Health Maintenance Insurance [employer] Care Teams Greens Cutter Relationship Specialty Start Date End Date Miguel Dowling MD [facility] [address] [place] [address] PCP - General Family Medicine 03/07/22
--- OUTSIDE RECORDS SUMMARY | 2024-10-03 18:45 | XMS_ITS | Patient Health Record ---
Author Organization [facility] Address [address] [place] [address] Care Team Providers Care Audit Intern Name Role Phone Miguel Dowling Primary Care Provider NATHANIEL Chu Unavailable [phone] None, None Unavailable Unavailable Allergies No Known Allergies Results Component Value Reference Range Notes MRI : Soft Tissue Neck W/WO Reviewed date:01/01/2024 06:00:09 PM Interpretation: Performing Lab: Notes/Report: Original Report CDI Location: [place]:[facility] EXAM: MR SOFT TISSUE NECK WITHOUT [...] Notes Problem Mass of right parotid gland ([id number]) 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 Vital Signs Height-cm 182.88 cm 11/29/2023 Weight-kg 106.59 kg 11/29/2023 Height 72 in 11/29/2023 Weight 235 lbs 11/29/2023 BMI 31.87 kg/m2 11/29/2023 Encounters Encounter Location Date Provider Diagnosis [facility] [address] [facility] [address] [place] [address] 11/29/2023 NATHANIEL MUHAMMAD Mass of right parotid gland K11.8 [facility] [address] [place] [address] [place] [address] 12/07/2023 NATHANIEL MUHAMMAD Mass of right parotid gland K11.8 [facility] [address] [place] [address] [place] [address] 01/01/2024 NATHANIEL MUHAMMAD Assessments Encounter Date Diagnosis [...] Insured Coverage Start Date Coverage End Date [employer] MEDICARE [address] [place], [place] [id number] Armen Crump Self - patient is the insured 4 MEDICARE [address] [place] [address] [id number] Armen Crump Self - patient is the insured 2 Medical (General) History Medical History History ICD Code HTN colorectal cancer Surgical History Surgery Date(Month/Year) rt knee replacement colorectal surgery
[2024-10-03 18:54] VITALS: BP 108/63; PULSE 86; RESP 22; TEMP 37.1; O2SAT 98; BMI 31.2
--- NOTE | 2024-10-03 19:38 | CRLHL7_ITS ---
For Patients: As a result of the Century Cures Act, medical imaging exams and procedure reports are released immediately into your electronic medical record. You may view this report before your referring provider. If you have questions, please contact your health care provider. INDICATION: Loss of balance. COMPARISON: 09/26/2024. TECHNIQUE: Noncontrast CT head. FINDINGS: Normal brain parenchymal morphology. Stable small focal low-attenuation change of the right thalamus consistent with an old lacunar infarct. No acute intracranial hemorrhage, acute infarct, mass effect, or fracture. No midline shift. No abnormal ventricular dilatation. Normal calvarium and skull base. Visualized paranasal sinuses mastoid air cells are clear. Normal orbits bilaterally. IMPRESSION: 1. No acute intracranial abnormality. 2. Normal brain parenchymal morphology Please note that all CT scans at this facility use dose modulation, iterative reconstruction, and/or weight-based dosing when appropriate to reduce radiation dose to as low as reasonably achievable. Dictated by Orlando Brooks MD @ 10/03/2024 8:04:31 PM (Electronically Signed)
--- NOTE | 2024-10-03 19:40 | ED.GENADULT ---
HPI - General Adult General Chief complaint: Eye Problems Stated complaint: possible stroke, confusion Time Seen by Provider: 10/03/24 19:13 History of Present Illness HPI narrative: This 79-year-old male comes in with family members and actually this is his 3rd visit to this facility over the past week with persistent symptoms throughout the past week. The main thing he reports is feeling off balance. He does not have unilateral weakness. He does state that his right eye seems to be a bit more closed compared to his left eye. He reports a diagnosis of macular degeneration and is getting injections into his eye. He states that he is urinating more frequently recently. He does not report any fevers or shortness of breath. He does have a slight headache. Family members state that his speech is slurred and that he is confused. In my initial interview which was rather thorough with him I did not notice any sign of confusion or altered speech. These symptoms began a bit more than a week ago. He was seen in the emergency department here and then had a follow-up appointment in the clinic a couple days ago. He states that he is due to return for more testing in the clinic tomorrow. Related Data Home Medications ?Medication ?Instructions ?Recorded ?Confirmed acetaminophen 325 mg tablet 650 mg PO Q6H PRN 05/09/22 10/03/24 (Tylenol) aspirin 325 mg tablet 325 mg PO Q6H PRN 05/09/22 10/03/24 aflibercept 2 mg/0.05 mL 2 mg intravitreal ONCE 05/22/23 10/03/24 intravitreal solution for injection (Eylea) gatifloxacin 0.5 % eye drops drp ophthalmic (eye) 11/06/23 09/30/24 ketorolac 0.5 % eye drops drp ophthalmic (eye) 11/06/23 09/30/24 prednisolone acetate 1 % eye drp ophthalmic (eye) 11/06/23 09/30/24 drops,suspension naproxen sodium 220 mg capsule 220 mg PO BID PRN 01/08/24 10/03/24 (Aleve) Previous Rx's ?Medication ?Instructions ?Recorded amlodipine 10 mg tablet 10 mg PO DAILY #90 tabs 07/05/24 lisinopril 40 mg tablet 40 mg PO QDAY #90 tabs 07/05/24 blood sugar diagnostic (Blood #100 ea 09/30/24 Glucose Test strips) blood-glucose meter (Blood Glucose #1 ea 09/30/24 Monitoring kit) hydrochlorothiazide 25 mg tablet 25 mg PO QAM #30 tabs 09/30/24 lancets 23 gauge (Comfort EZ #100 ea 09/30/24 Lancets) meclizine 25 mg tablet 25 mg PO QID #20 tabs 10/03/24 Allergies Allergy/AdvReac Type Severity Reaction Status Date / Time cefadroxil AdvReac GI Verified 10/03/24 18:50 upset/bloody stools Review of Systems Status of ROS: Reports: 10 or more systems reviewed and unremarkable except as noted in History and below Narrative: Constitutional: No fevers, no weight gain or loss. Eyes: No discharge. No vision changes. HENT: No congestion, no sore throat, no ear pain. Cardiovascular: No chest pain, no palpitations. Respiratory: No shortness of breath, no wheezes, no cough. Gastrointestinal: No abdominal pain, no vomiting, no diarrhea. Genitourinary: No hematuria. He reports that he is urinating more frequently. Musculoskeletal: Normal range of motion. Skin: No rashes, no pruritis. Neurological: No weakness, sensory change. He states that he feels off balance and needs to hold on to something when he is ambulating. Endo/Heme/Allergies: No bruising or bleeding. No polydipsia. Pysch: no suicidality, no anxiety, no insomnia. All other systems reviewed and are negative. [facility] Medical History Diabetes ?E11.9 - Type 2 diabetes mellitus without complications (ICD-10) Pre-procedure lab exam ?Z01.812 - Encounter for preprocedural laboratory examination (ICD-10) Elevated PSA measurement ?R97.20 - Elevated prostate specific antigen [PSA] (ICD-10) History of agent [place] exposure ?Z77.098 - Contact with and (suspected) exposure to other hazardous, chiefly nonmedicinal, chemicals (ICD-10) Surgical History Status post knee replacement (~01/28/21) ?Z96.659 - Presence of unspecified artificial knee joint (ICD-10) Social History Smoking Status: Former smoker Do you use any of these nicotine containing products: None How often do you have a drink containing alcohol: 2-3 times a week How many standard drinks containing alcohol do you have on a typical day: 1 or 2 How often do you have six or more drinks on one occasion: Never AUDIT-C Alcohol total score: 3 Non-prescribed substance use: denies use Exam Narrative: Exam Narrative: Constitutional: Well-developed, well-nourished, no acute distress. HEENT: Normocephalic, atraumatic. Visual kumar are intact. Neck: Normal range of motion. Nontender. Supple. Heart: Regular. No murmurs. Normal rate. Intact distal pulses. Lungs: Clear to auscultation. No chest discomfort. No wheezes, rhonchi, or rales. Abdomen: Normal bowel sounds. Nontender. No rebound tenderness. Genitalia: Deferred. Back: No midline tenderness. Normal range of motion. Extremities: Normal range of motion. No injury. Skin: Intact. No rash. Warm. No erythema or pallor. Neurologic: No altered sensation. No weakness. Alert and oriented. No facial asymmetry. Tongue is midline. Uptigj-oy-fmky is normal. No pronator drift. Hydro Technician strength is equal bilaterally. Able to raise each leg from the bed. Psychiatric: No suicidality. No anxiety or depression. No insomnia. Nursing notes and vitals signs are reviewed. Const: Vital Signs, click to edit/add: Vital Signs - 24 hr 10/03/24 18:54 10/03/24 20:05 Temperature 98.7 F Pulse Rate [Pulse Oximeter] 86 107 H Respiratory Rate 22 16 Blood Pressure [Ri ght Upper Arm] 108/63 120/87 Pulse Oximetry 98 92 Oxygen Delivery Me thod Room Air Room Air Course Vital Signs Vital signs: Initial Vital Signs Temperature 98.7 F 10/03/24 18:54 Temperature Source Temporal Artery Scan 10/03/24 18:54 Pulse Rate 86 10/03/24 18:54 Respiratory Rate 22 10/03/24 18:54 Blood Pressure 108/63 10/03/24 18:54 Blood Pressure Mean 78 10/03/24 18:54 Pulse Oximetry 98 10/03/24 18:54 Oxygen Delivery Method Room Air 10/03/24 18:54 Vital Signs Temperature 98.7 F 10/03/24 18:54 Pulse Rate 86 10/03/24 18:54 Respiratory Rate 22 10/03/24 18:54 Blood Pressure 108/63 10/03/24 18:54 Pulse Oximetry 98 10/03/24 18:54 Oxygen Delivery Method Room Air 10/03/24 18:54 Temperature 98.7 F 10/03/24 18:54 Pulse Rate 107 H 10/03/24 20:05 Respiratory Rate 16 10/03/24 20:05 Blood Pressure 120/87 10/03/24 20:05 Pulse Oximetry 92 10/03/24 20:05 Oxygen Delivery Method Room Air 10/03/24 20:05 Medications Administered Medications: Discontinued Medications Generic Name Dose Route Start Last Admin Trade Name Freq PRN Reason Stop Dose Admin Meclizine HCl 25 mg 10/03/24 19:46 10/03/24 20:04 Meclizine Hcl 25 Mg Tablet PO 10/03/24 19:47 25 mg ONCE ONE Administration Medical Decision Making [facility] Narrative Medical decision making narrative: This patient is in because of a week or more of symptoms of feeling off balance. He also reports some confusion and states that he is urinating much more frequently with more of an odorous smell to the urine. I did obtain a CT scan which shows no acute findings. There is a small area suspicious for an old lacunar infarct. The patient does have polycythemia vera and does typically have elevated hemoglobin and white blood cell count. His urinalysis is showing some suspicion of infection with white blood cells present. Coupled with his symptoms of dysuria I did provide a prescription for Keflex. The patient also did receive a dose of meclizine. He was road tested and feels okay to return home. He does have a follow-up appointment with his primary physician tomorrow. Lab Data Labs: Lab Results 10/03/24 10/03/24 10/03/24 Range/Units 19:39 19:45 19:57 WBC 14.92 H (4.50-11.00) K/uL RBC 6.53 H (4.30-5.90) m/uL Hgb 19.8 H (13.5-17.5) gm/dL Hct 58.5 H (37.0-53.0) % MCV 90 (80-100) fL MCH 30 (26-34) pg MCHC 34 (32-36) gm/dL RDW Coeff of Scott 13.0 (11.5-15.5) % Plt Count 192 (140-440) K/uL Neut % (Auto) 79.0 H (42.0-72.0) % Lymph % (Auto) 9.7 L (20-44) % [place] % (Auto) 10.5 (0.0-11.0) % Eos % (Auto) 0.3 (0.0-7.0) % Baso % (Auto) 0.0 (0.0-3.0) % Neut # (Auto) 11.80 H (1.7-7.0) K/uL Lymph # (Auto) 1.40 (0.90-2.90) K/uL [place] # (Auto) 1.60 H (0.00-0.90) K/UL Eos # (Auto) 0.00 (0.00-0.50) K/uL Baso # (Auto) 0.00 (0.00-0.30) K/uL Abs Immat Gran (auto) 0.10 (0.00-0.30) K/uL Imm/Tot Granulo (auto) 0.5 % Sodium 139 (135-149) mmol/L Potassium 4.3 (3.6-5.1) mmol/L Chloride 99 (96-114) mmol/L Carbon Dioxide 28 (20-32) mmol/L Anion Gap 12 (7-15) mEq/L BUN 29 (7-30) mg/dL Creatinine 1.6 H (0.5-1.5) mg/dL Estimated Creat Clear 42.44 Estimated GFR 44 ml/min Glucose 125 H (60-115) mg/dL Calcium 9.8 (8.4-10.6) mg/dL Total Bilirubin 1.8 H (0.1-1.5) mg/dL Direct Bilirubin 0.3 (0.0-0.5) mg/dL AST 25 (12-35) U/L ALT 21 (4-50) U/L Alkaline Phosphatase 61 (40-150) U/L Total Protein 7.8 (6.0-8.3) g/dL Albumin 4.9 (3.3-5.0) g/dL Urine Color Yellow (Yellow) Urine Appearance Clear (Clear) Urine pH 5.5 (5.0-8.5) Ur Specific [place] 1.025 (1.000-1.030) Urine Protein 1+ A (Negative) Urine Glucose (UA) Negative (Negative) Urine Ketones 1+ A (Negative) Urine Blood Negative (Negative) Urine Nitrite Negative (Negative) Urine Bilirubin 1+ A (Negative) Urine Urobilinogen 2.0 A (0.2-1.0) Ur Leukocyte Esterase Trace A (Negative) Urine RBC 0-2 (0-2) Urine WBC 5-10 A (0-5) Ur Squamous Epith Cells None (None-Few) Other Sediment Few A (None) Urine Bacteria Moderate A (None) Coarse Granular Casts Few A (None) Urine Mucus Moderate A (None) POC Troponin I 0.02 (0.01-0.04) ng/ml Imaging Data CT scan - head: Radiologist's impression: FINDINGS: Normal brain parenchymal morphology. Stable small focal low-attenuation change of the right thalamus consistent with an old lacunar infarct. No acute intracranial hemorrhage, acute infarct, mass effect, or fracture. No midline shift. No abnormal ventricular dilatation. Normal calvarium and skull base. Visualized paranasal sinuses mastoid air cells are clear. Normal orbits bilaterally. IMPRESSION: 1. No acute intracranial abnormality. 2. Normal brain parenchymal morphology ECG Data Attestation: I personally reviewed and interpreted this ECG as follows: Interpretation: Sinus tachycardia, rate 104 beats per minute. There are no specific ST or T-wave abnormalities. Discharge Plan Discharge Clinical Impression: Urinary tract infection, Ataxia Patient Disposition: Home w/ Parent or Adult Condition: Stable Additional Instructions: Take medication as prescribed. Activity as tolerated. Follow up with primary physician tomorrow as scheduled. Return if worsening. Prescriptions: New meclizine 25 mg tablet 25 mg PO QID Qty: 20 0RF No Action gatifloxacin 0.5 % drops ophthalmic (eye) prednisolone acetate 1 % drops,suspension ophthalmic (eye) ketorolac 0.5 % drops ophthalmic (eye) naproxen sodium [Aleve] 220 mg capsule 220 mg PO BID PRN acetaminophen [Tylenol] 325 mg tablet 650 mg PO Q6H PRN aspirin 325 mg tablet 325 mg PO Q6H PRN Eylea 2 mg/0.05 mL solution 2 mg intravitreal ONCE (DME) blood-glucose meter [Blood Glucose Monitoring] Kit See Rx Instructions .ROUTE .MEDSUPPLY Qty: 1 0RF Rx Instructions: As directed hydrochlorothiazide 25 mg tablet 25 mg PO QAM Qty: 30 1RF (DME) Comfort EZ Lancets 23 gauge misc See Rx Instructions .Route Qty: 100 12RF Rx Instructions: bid (DME) Blood Glucose Test Strip See Rx Instructions .ROUTE .MEDSUPPLY Qty: 100 2RF Rx Instructions: bid lisinopril 40 mg tablet 40 mg PO QDAY Qty: 90 3RF amlodipine 10 mg tablet 10 mg PO DAILY Qty: 90 3RF Follow Up/Referrals: Miguel Dowling MD [Primary Care Provider, Family Practice] Stand Alone Forms: Emergent Labsth Info Instructions
[2024-10-03 19:59] LABS: Eosinophils Percent Auto 0.3 % (0.0-7.0); Hematocrit 58.5 % (37.0-53.0); Hemoglobin* 19.8 gm/dL (13.5-17.5); Immature Granulocytes Pct Auto 0.5 %; Lymphocytes Percent Auto 9.7 % (20-44); Mean Corpuscular HGB Conc 34 gm/dL (32-36); Mean Corpuscular Hemoglobin 30 pg (26-34); Mean Corpuscular Volume 90 fL (80-100); Monocytes Percent Auto 10.5 % (0.0-11.0); Platelet Count* 192 K/uL (140-440); Red Blood Count 6.53 m/uL (4.30-5.90); White Blood Count* 14.92 K/uL (4.50-11.00)
[2024-10-03 20:00] LABS: Slide Review Reflex No
[2024-10-03] MEDS: MECLIZINE HCL 25 MG TABLET PO (20:04)
[2024-10-03 20:05] VITALS: BP 120/87; PULSE 107; RESP 16; O2SAT 92
[2024-10-03 20:15] LABS: Troponin, Point-of-Care* 0.02 ng/ml (0.01-0.04)
[2024-10-03 20:28] LABS: Appearance Urine Clear (Clear); Bilirubin Urine 1+ (Negative); Blood Urine Negative (Negative); Color Urine Yellow (Yellow); Glucose Urine Negative (Negative); Ketones Urine 1+ (Negative); Leukocyte Esterase Urine Trace (Negative); Nitrite Urine Negative (Negative); Protein Urine 1+ (Negative); Specific Gravity Urine 1.025 (1.000-1.030); pH Urine 5.5 (5.0-8.5)
[2024-10-03 20:30] LABS: Albumin* 4.9 g/dL (3.3-5.0); Chloride* 99 mmol/L (96-114); Potassium* 4.3 mmol/L (3.6-5.1); Sodium* 139 mmol/L (135-149)
[2024-10-03 20:32] LABS: Blood Urea Nitrogen* 29 mg/dL (7-30); Creatinine* 1.6 mg/dL (0.5-1.5); Est. Creatinine Clearance* 42.44; Estimated Glomerular Filt Rate 44 ml/min
[2024-10-03 20:33] LABS: Alanine Aminotransferase* 21 U/L (4-50); Alkaline Phosphatase* 61 U/L (40-150); Anion Gap 12 mEq/L (7-15); Aspartate Amino Transferase* 25 U/L (12-35); Bilirubin Direct* 0.3 mg/dL (0.0-0.5); Bilirubin Total* 1.8 mg/dL (0.1-1.5); Calcium* 9.8 mg/dL (8.4-10.6); Carbon Dioxide* 28 mmol/L (20-32); Glucose* 125 mg/dL (60-115); Total Protein* 7.8 g/dL (6.0-8.3)
[2024-10-03 20:39] LABS: Bacteria Urine Moderate; RBC Urine 0-2 (0-2)
[2024-10-03 20:40] LABS: Coarse Granular Casts Urine Few; Mucus Urine Moderate; Other Sediment Urine Few
[2024-10-03 21:22] LABS: Vitamin B12* 290 pg/mL (243-894)
== END 2024-10-03 21:13 | disposition home or self-care (01) ==
PROVIDERS: Emergency Provider Emergency Medicine Emergency Medical Services; PCP Family Medicine
DX: M25.512 Pain in left shoulder (principal); M54.2 Cervicalgia; R35.0 Frequency of micturition
CPT/HCPCS: 36415; 70450; 80048; 80076; 81001; 82607; 84484; 85025; 87086; 93005; 99284; 99285; A9270

== ENCOUNTER 2024-10-04 11:28 | Inpatient (IN) | payer OTHER, SELFPAY ==
--- OUTSIDE RECORDS SUMMARY | 2022-01-11 09:30 | XMS_ITS | Continuity of Care Document ---
Author Name [facility] Organization [facility] Care Team Providers Care Transportation Mechanic Name Role Phone [facility] Unavailable Unavailable Problems Combined list of problems from Department of [facility] and [facility] facilities. It does not include entries that were removed or entered in error. Problem Status Onset Date Problem Type Date of Resolution Comments Source Basal cell carcinoma of skin Active Condition Mar 17, 2017 Entered By: ALEJANDRO REN Comment: 03.15.2017 R Nose. [facility] Benign essential hypertension (SNOMED CT [id number]) Active Condition [facility] Elevated PSA Active Condition [facility] Erythrocytosis Active Condition [facility] Gout Active Condition [facility] H/O: vasectomy Active Condition [facility] Health Maintenance (ICD-9-CM V65.9) Active Condition [facility] History of tonsillectomy Active Condition [facility] Hyperlipidemia Active Condition [facility] Obstructive sleep apnea of adult Active Condition [facility] Medications Combined list of outpatient medications from [facility] and [facility] facilities.Medications provided include 1) outpatient medications from the last 15 months, and 2) patient-reported medications. Medication Details Route Status Patient Instructions Prescription Expires Prescription Number Last Dispense Date Ordering Provider Order Date Order Qty Source ALLOPURINOL TAB TAKE BY MOUTH ORAL ACTIVE LUISAWild 2016 [facility] AMLODIPINE BESYLATE 10MG TAB TAKE ONE-HALF TABLET BY MOUTH ORAL ACTIVE LUISAWild 2015 [facility] ASPIRIN 325MG TAB TAKE ONE TABLET BY MOUTH EVERY DAY ORAL ACTIVE DANIEL JOE 2009 [facility] LISINOPRIL 40MG TAB TAKE ONE TABLET BY MOUTH EVERY DAY ORAL ACTIVE LUISAL MAME Sahu 2015 [facility] MULTIVITAMI NS CAP/TAB TAKE ONE TABLET BY MOUTH EVERY DAY ORAL ACTIVE LUISAWild 2015 [facility] NAPROXEN 250MG TAB TAKE ONE-HALF TABLET BY MOUTH PRN ORAL ACTIVE DANIEL JOE 2009 [facility] Allergies, Adverse Reactions, Alerts Combined list of allergies from Department of [facility] and [facility] facilities. It does not include entries that were removed or entered in error. Substance Category Reaction Severity Reaction type Status Date Reported Comments Source CEFADROXIL Propensity to adverse reactions to drug (finding) Bleeding active 2 [facility] HCTZ HYDROCHLOROTH IAZIDE Propensity to adverse reactions to drug (finding) Gout active 6 [facility] METOPROLOL Propensity to adverse reactions to drug (finding) Fatigue active 8 [facility] Immunizations Combined list of available immunizations from the Department of [facility] and [facility] facilities. Immunization Series Date Given Administered By Site Reaction Lot Number CVX Code Drug [place] Status Comments Source COVID-19 (Spondo), MRNA, LNP-S, PF, 30 MCG/0.3 ML DOSE 2 2020 208 complet ed PFR; [id number]; 1 [facility] COVID-19 (Spondo), MRNA, LNP-S, PF, 30 MCG/0.3 ML DOSE 1 2020 208 complet ed PFR; [id number]; 1 [facility] PNEUMOCOCCAL POLYSACCHARID E PPV23 2017 33 complet ed [employer],[id number] [id number] 20 [facility] TDAP 2017 115 complet ed sanofi pastuer [id number], [facility] PNEUMOCOCCAL CONJUGATE PCV 13 2015 133 complet ed [employer],M79 321,12/08 [facility] ZOSTER LIVE 2015 121 complet ed [employer],[id number] [id number] 16 [facility] Social History Combined list of available smoking, tobacco, and other social history from Department of [facility] and [facility] facilities. 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
--- OUTSIDE RECORDS SUMMARY | 2022-01-11 09:30 | XMS_ITS | Continuity of Care Document ---
Author Name [facility] Organization [facility] Care Team Providers Care Heavy Equipment Operator Name Role Phone [facility] Unavailable Unavailable Problems Combined list of problems from Department of [facility] and [facility] facilities. It does not include entries that were removed or entered in error. Problem Status Onset Date Problem Type Date of Resolution Comments Source Basal cell carcinoma of skin Active Condition Mar 17, 2017 Entered By: ALEJANDRO REN Comment: 03.15.2017 R Nose. [facility] Benign essential hypertension (SNOMED CT [id number]) Active Condition [facility] Elevated PSA Active Condition [facility] Erythrocytosis Active Condition [facility] Gout Active Condition [facility] H/O: vasectomy Active Condition [facility] Health Maintenance (ICD-9-CM V65.9) Active Condition [facility] History of tonsillectomy Active Condition [facility] Hyperlipidemia Active Condition [facility] Obstructive sleep apnea of adult Active Condition [facility] Medications Combined list of outpatient medications from [facility] and [facility] facilities.Medications provided include 1) outpatient medications from the last 15 months, and 2) patient-reported medications. Medication Details Route Status Patient Instructions Prescription Expires Prescription Number Last Dispense Date Ordering Provider Order Date Order Qty Source ALLOPURINOL TAB TAKE BY MOUTH ORAL ACTIVE LUISAWild 2016 [facility] AMLODIPINE BESYLATE 10MG TAB TAKE ONE-HALF TABLET BY MOUTH ORAL ACTIVE LUISAWild 2015 [facility] ASPIRIN 325MG TAB TAKE ONE TABLET BY MOUTH EVERY DAY ORAL ACTIVE DANIEL JOE 2009 [facility] LISINOPRIL 40MG TAB TAKE ONE TABLET BY MOUTH EVERY DAY ORAL ACTIVE LUISAL MAME Sahu 2015 [facility] MULTIVITAMI NS CAP/TAB TAKE ONE TABLET BY MOUTH EVERY DAY ORAL ACTIVE LUISAWild 2015 [facility] NAPROXEN 250MG TAB TAKE ONE-HALF TABLET BY MOUTH PRN ORAL ACTIVE DANIEL JOE 2009 [facility] Allergies, Adverse Reactions, Alerts Combined list of allergies from Department of [facility] and [facility] facilities. It does not include entries that were removed or entered in error. Substance Category Reaction Severity Reaction type Status Date Reported Comments Source CEFADROXIL Propensity to adverse reactions to drug (finding) Bleeding active 2 [facility] HCTZ HYDROCHLOROTH IAZIDE Propensity to adverse reactions to drug (finding) Gout active 6 [facility] METOPROLOL Propensity to adverse reactions to drug (finding) Fatigue active 8 [facility] Immunizations Combined list of available immunizations from the Department of [facility] and [facility] facilities. Immunization Series Date Given Administered By Site Reaction Lot Number CVX Code Drug Cloud Architect Status Comments Source COVID-19 (6Scan), MRNA, LNP-S, PF, 30 MCG/0.3 ML DOSE 2 2020 208 complet ed PFR; [id number]; 1 [facility] COVID-19 (6Scan), MRNA, LNP-S, PF, 30 MCG/0.3 ML DOSE 1 2020 208 complet ed PFR; [id number]; 1 [facility] PNEUMOCOCCAL POLYSACCHARID E PPV23 2017 33 complet ed [employer],[id number] [id number] 20 [facility] TDAP 2017 115 complet ed sanofi pastuer [id number], [facility] PNEUMOCOCCAL CONJUGATE PCV 13 2015 133 complet ed [employer],M79 321,12/08 [facility] ZOSTER LIVE 2015 121 complet ed [employer],[id number] [id number] 16 [facility] Social History Combined list of available smoking, tobacco, and other social history from Department of [facility]. Social History Type Response Date Comment Sourc e Tobacco smoking status [facility]-TOBACCO FORMER USER 01/11/2022 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
--- OUTSIDE RECORDS SUMMARY | 2024-09-09 14:30 | XMS_ITS | Encounter Summary ---
Author Organization [facility] Address [address], [place] [address] Care Team Providers Care Insurance Sales Specialist Name Role Phone Kristine Brown MD Primary Care Provider [phone] Encounter Details Date Type Department Care Team (Latest Contact Info) Description 09/09/2024 2:30 PM CDT Office Visit Ophthalmology at [facility] 401 [facility] 401 [facility]. [place], [place] [phone] Iraj Garcia MD [address] [place] [phone] 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 right eye [...] injection. If this occurs, you may use jujn-hrc-bvvrudc tear dropsor ointment from a pharmacy to provide some relief of symptoms. However, you SHOULD NOT experience symptoms of SIGNIFICANT PAIN, HEADACHE, LIGHT SENSITIVITY, or SUDDEN CHANGES IN VISION following an injection, especially occurring a day or more following the procedure. If any of these occur, call the CARELINE immediately at and ask to speak with the doctor construction supervisor. These can be signs of a potentially [...] 10/2023) Eye Med/Surg History: pcIOL OU (11/2023, [facility]) Relevant Medical History: Hypertension Glaucoma Meds: [...] 10/14/2024 3:15 PM CDT Appointment Ophthalmology at [address] [place] [address] Iraj Garcia MD [address] [place] [phone] documented as of this encounter Procedures Procedure [...] 2 MG/0.05ML Route: Intravitreal, Site: Right Eye [facility]: [id number], Lot: [id number], Expiration date: 10/22/2025, Waste: 0 mL us [...] Eye documented in this encounter Care Teams Insurance Sales Specialist Relationship Specialty [place] [address] [place] [address] PCP - General Family Practice 03/25/13 documented as of this encounter
[2024-10-04] VITALS (43 sets, daily range): BP systolic 96–136; BP diastolic 67–99; PULSE 68–115; RESP 16–22; TEMP 36.7–37.4; O2SAT 86–95; BMI 31.9
--- OUTSIDE RECORDS SUMMARY | 2024-10-04 11:30 | XMS_ITS | Clinical Summary ---
Author Organization [facility] Address [address] [place] [address] Care Team Providers Care Refresh Technician Name Role Phone Miguel Dowling MD Primary Care Provider [phone] Allergies Active Allergy Reactions Criticality Noted Date [...] once daily. 10.4 mL 04/03/2022 3:25 PM HEAD OF INSIGHT 2 Active Active Problems Problem Noted Date Diagnosed Date Paroxysmal atrial fibrillation 03/31/2022 Rectal cancer 03/31/2022 Polycythemia 03/31/2022 Overview (03/31/2022): Going back at least as far as 2014. No workup. Hypertension 03/31/2022 Gout 03/31/2022 Macular degeneration 03/31/2022 Obesity (BMI 30.0-34.9) 03/31/2022 REBECCA (obstructive sleep apnea) 03/31/2022 Prediabetes 03/31/2022 Immunizations Immunization Administration Dates Next Due COVID-19 vaccine ([employer] 30mcg/0.3mL) P F, MDV 06/22/2020,05/29/2020 Social History [...] on file Legal Sex Male 4:22 PM HEAD OF INSIGHT Gender Identity Not on file Sexual Orientation Not on file Obstetrics History Last Filed Vital Signs Vital Sign Reading Time Taken Comments Blood Pressure 142/78 04/03/2022 7:48 AM HEAD OF INSIGHT Pulse 105 04/03/2022 7:48 AM HEAD OF INSIGHT Temperature 37.1 C (98.7 F) 04/03/2022 7:48 AM HEAD OF INSIGHT Respiratory Rate 18 04/03/2022 7:48 AM HEAD OF INSIGHT Oxygen Saturation 92% 04/03/2022 7:48 AM HEAD OF INSIGHT Inhaled Oxygen Concentration - - Weight 106.3 kg (234 lb 5.6 oz) 022 11:00 AM HEAD OF INSIGHT Height 180.3 cm (5' 11) 03/31/2022 11: 30 AM HEAD OF INSIGHT Body Mass Index 32.69 03/31/2022 11:30 AM HEAD OF INSIGHT Plan of Treatment Health Maintenance Due Date [...] Code Status Discussion: Reviewed Preferences Care Teams Refresh Technician Relationship Specialty Start Date End Date Miguel Dowling MD PCP - General Family Practice 01/21/21
--- OUTSIDE RECORDS SUMMARY | 2024-10-04 11:30 | XMS_ITS | Encounter Summary ---
Author Organization [facility] Address [address] [address] Care Team Providers Care Director Digital Name Role Phone Kristine Brown MD Primary Care Provider Encounter Details Date Type Department Care Team (Late st Contact Info) Description 04/18/2016 Refill Order [facility] [address] [place], [place] [phone] [place] [address] [place], [place] [phone] Social History Tobacco Use Types Packs/Day Years [...] notified. Charlene Ortega CMA 05/05/2016, 6:11 PM DER FRAME TENDER documented in this encounter Plan of Treatment Upcoming Encounters Date Type Department Care Team (Late st Contact Info) Description 10/14/2024 3:15 PM CDT Appointment Ophthalmology at [facility] [address] [place] [address] Iraj Garcia MD [address] [place] [id number] documented as of this encounter Visit Diagnoses Diagnosis Encounter for long-term (current) use of medications- Primary Encounter for long-term (current) use of other medications documented in this encounter Care Teams Director Digital Relationship Specialty [place] [address] [place] [address] PCP - General Family Practice 03/25/13 documented as of this encounter
--- OUTSIDE RECORDS SUMMARY | 2024-10-04 11:30 | XMS_ITS | Clinical Summary ---
Author Organization [facility] Address [address] [place] [address] Care Team Providers Care Financial Analyst Intern Name Role Phone Miguel Dowling MD Primary Care Provider [phone] Allergies No known active allergies Medications LISINOPRIL [...] on file Legal Sex Male 3:20 AM CHALK CUTTER Gender Identity Not on file Sexual Orientation Not on file Last Filed Vital Signs Vital Sign Reading Time Taken Comments Blood Pressure 91/72 03/29/2022 12:11 PM CHALK CUTTER Pulse 111 03/29/2022 12:21 PM CHALK CUTTER Temperature 36.6 C (97.9 F) 07/30/2011 6:27 PM CDT Respiratory Rate 25 03/29/2022 12:21 PM CHALK CUTTER Oxygen Saturation 92% 03/29/2022 12:16 PM CHALK CUTTER Inhaled Oxygen Concentration - - Weight 108.9 kg (240 lb) 03/29/2022 11:22 AM CHALK CUTTER Height 180.3 cm (5' 11) 03/29/2022 11:22 AM CHALK CUTTER Body Mass Index 33.47 03/29/2022 11:22 AM CHALK CUTTER Plan of Treatment Health Maintenance Due Date [...] Diagnosis Comments FLEXIBLE SIGMOIDOSCOPY Routine 11:35 AM CHALK CUTTER from Last 3 Months or Most Recently Relevant to Health Maintenance Results * FLEXIBLE SIGMOIDOSCOPY (03/29/2022 11:35 AM CHALK CUTTER) [facility] Flex Sig [place] [address] [address] [address] Patient Name: Armen Crump Procedure Date: 03/29/2022 [...] on . Procedure Code(s): --- Professional --- 85627, Sigmoidoscopy, flexible; with biopsy, single or multiple Diagnosis Code(s): --- Professional --- C20, Malignant neoplasm of rectum K62.1, Rectal polyp Z01.818, Encounter for other preprocedural examination CPT copyright 2020 [employer]. All rights reserved. The codes documented in this report are preliminary and upon professional fee coder review may be revised to meet current [...] AM RADIOLOGY RESULTS 03/29/2022 11:3 5 AM CHALK CUTTER us Camila Brar MD PROCEDURES Final Re sult RADIOLOGY RESULTS from Last 3 Months or Most Recently Relevant to Health Maintenance Insurance [employer] Care Teams Financial Analyst Intern Relationship Specialty Start Date End Date Miguel Dowling MD [facility] [address] [place] [address] PCP - General Family Medicine 03/07/22
--- OUTSIDE RECORDS SUMMARY | 2024-10-04 11:30 | XMS_ITS | Encounter Summary ---
Author Organization [facility] Address [address], [place] [address] Care Team Providers Care Still Pump Operator Name Role Phone Kristine Brown MD Primary Care Provider [phone] Encounter Details Date Type Department Care Team (Late st Contact Info) Description 09/29/2009 Correspondence External to External, [place] [address] MED HX AND MEDICATIONS Social History Tobacco Use Types Packs/Day Years Used Date Smoking Tobacco: Never Assessed Sex and Gender Information Value Date Recorded Sex Assigned at Not on file Legal Sex Male 4:58 AM CDT Gender Identity Not on file Sexual Orientation Not on file documented as of this encounter Progress Notes * External, Provider - 09/29/2009 12:00 AM CDT ELING CONSTRUCTION SUPERINTENDENT documented in this encounter Plan of Treatment Upcoming Encounters Date Type Department Care Team (Late st Contact Info) Description 10/14/2024 3:15 PM CDT Appointment Ophthalmology at [facility] 401 [facility] 401 [facility]. [place], [place] [id number] Iraj Garcia MD [address] [place] [phone] documented as of this encounter Visit Diagnoses Not on filedocumented in this encounter Care Teams Still Pump Operator Relationship Specialty [place] [address] [place] [address] PCP - General Family Practice 03/25/13 documented as of this encounter
--- OUTSIDE RECORDS SUMMARY | 2024-10-04 11:30 | XMS_ITS | Clinical Summary ---
Author Organization [facility] Address [address] [place] [address] Care Team Providers Care Tax Credit Leasing Consultant Name Role Phone Unavailable Primary Care Provider Unavailabl e Source Comments Patient records contain information from all sites at [facility]. For routine questions regarding patient records, call [phone] during business hours, M-F 8:00 AM - 5:00 PM Central Time. Record requests for emergency care only can be directed to [phone] at any time.[facility] Social History Tobacco Use Types Packs/Day Years Used Date Smoking Tobacco: Never Assessed Nutrition Answer Date Recorded Nutrition: EVOO Fat Source Unknown 05/09 Nutrition: Servings of Fruits/Vegetables per Day Not on file 05/09/2022 Dental Answer Date Recorded Dental: Regular Dentist Unknown 10/16/19 Sex and Gender Information Value Date Recorded Sex Assigned at Not on file Legal Sex Male 11:45 AM JINRIKSHA DRIVER Gender Identity Not on file Sexual Orientation [...] patient's age to complete this topic Insurance [employer]
--- OUTSIDE RECORDS SUMMARY | 2024-10-04 11:30 | XMS_ITS | Encounter Summary ---
Author Organization [facility] Address [address], [place] [address] Care Team Providers Care Industrial Eng Name Role Phone Kristine Brown MD Primary Care Provider [phone] Reason for Visit * Reason Comments Reschedule Appointment Encounter Details Date Type Department Care Team (Late st Contact Info) Description 10/02/2024 Telephone Ophthalmology at [facility] 401 [facility] 401 [facility]. [place], [place] [phone] Iraj Garcia MD [address] [place] [phone] Reschedule Appointment Social History Tobacco Use Types [...] 10/14/2024 3:15 PM CDT Appointment Ophthalmology at [facility] [address] [place], [place] [phone] Iraj Garcia MD [address] [place] [phone] documented as of this encounter Visit Diagnoses Not on filedocumented in this encounter Care Teams Industrial Eng Relationship Specialty [place] [address] [place] [address] PCP - General Family Practice 03/25/13 documented as of this encounter
--- OUTSIDE RECORDS SUMMARY | 2024-10-04 11:30 | XMS_ITS | Patient Health Record ---
Author Organization [facility] Address [address] [place] [address] Care Team Providers Care Supervisor Tank House Name Role Phone Miguel Dowling Primary Care Provider NATHANIEL Chu Unavailable [phone] None, None Unavailable Unavailable Allergies No Known Allergies Results Component Value Reference Range Notes MRI : Soft Tissue Neck W/WO Reviewed date:01/01/2024 06:00:09 PM Interpretation: Performing Lab: Notes/Report: Original Report CDI Location: [place]:[facility] EXAM: MR SOFT TISSUE NECK WITHOUT AND [...] Notes Problem Mass of right parotid gland ([id number]) 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 Vital Signs Height-cm 182.88 cm 11/29/2023 Weight-kg 106.59 kg 11/29/2023 Height 72 in 11/29/2023 Weight 235 lbs 11/29/2023 BMI 31.87 kg/m2 11/29/2023 Encounters Encounter Location Date Provider Diagnosis [facility] [address] [facility] [address] [place] [address] 11/29/2023 NATHANIEL MUHAMMAD Mass of right parotid gland K11.8 [facility] [address] [place] [address] 12/07/2023 NATHANIEL MUHAMMAD Mass of right parotid gland K11.8 [facility] [address] [place] [address] 01/01/2024 NATHANIEL MUHAMMAD Assessments Encounter Date Diagnosis [...] Insured Coverage Start Date Coverage End Date [employer] MEDICARE [address] [place], [place] [id number] Armen Crump Self - patient is the insured 4 MEDICARE [address] [place] [address] [id number] Armen Crump Self - patient is the insured 2 Medical (General) History Medical History History ICD Code HTN colorectal cancer Surgical History Surgery Date(Month/Year) rt knee replacement colorectal surgery
--- OUTSIDE RECORDS SUMMARY | 2024-10-04 11:30 | XMS_ITS | Clinical Summary ---
Author Organization [employer] Address [address] [place] [address] Care Team Providers [employer] Name Role Phone Kristine Brown MD Primary Care Provider [phone] Source Comments You are receiving this document [...] for each transition of care or referral. Clutter Allergies Active Allergy Reactions Criticality Noted Date [...] Care Team Description 10/02/2024 Telephone Ophthalmology at [address] [place] [id number] Iraj Garcia MD Reschedule Appointment 09/09/2024 2:30 PM CDT Office Visit Ophthalmology at [address] 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 [place] [id number] Zeyer, Iraj C, MD Archer, Gene W, [...] CDT Respiratory Rate 14 05/19/2016 9:41 AM CLINIC CLERK Oxygen Saturation - - Inhaled Oxygen Concentration - - Weight 108 kg (238 lb) 07/26/2017 8:48 AM CDT Height 182.9 cm (6') 2017 2:30 PM CDT Body Mass Index 32.28 2017 2:30 PM CDT Plan of Treatment Upcoming Encounters Date Type Department Care Team (Late st Contact Info) Description 10/14/2024 3:15 PM CDT Appointment Ophthalmology at [facility] [address] [place] [address] Iraj Garcia MD [address] [place] [id number] Health Maintenance Due Date Last Done Comments [...] right eye with active choroidal neovascularization (HRC) LIPID PANEL & DIRECT LDL (IF NEEDED) Routine 01/30/2015 7:35 AM CDT Essential hypertension from Last 3 Months or Most Recently Relevant to Health Maintenance Results * Intravitreal injection, pharmacologic agent, OD, Right Eye (09/09/2024 4:36 PM CDT) Only the most recent of2 resultswithin the time period is included. Narrative [facility] - 09/09/2024 4:36 PM CDT Time Out 09/09/2024. 3:08 PM. Confirmed correct patient, procedure, site, and patient consented. Injection: 2 mg aflibercept 2 MG/0.05ML Route: Intravitreal, Site: Right Eye [facility]: 42666-161-49, Lot: [id number], Expiration date: 10/22/2025, Waste: 0 mL us Iraj Garcia MD OPHTH CLINIC PROCEDURES Final Re sult Performing Organization Address [facility] Co de Phone Number [facility] * LIPID PANEL AND DIRECT LDL(IF [...] - 01/30/2015 12:26 PM CDT Performed at [facility], [address] [place] [id number] us Kristine Brown MD LAB_[email or web address] Final Result Performing Organization Address [facility] de Phone Number [facility] [phone] from Last 3 Months or Most Recently Relevant to Health Maintenance Insurance MEDICARE ADVANTAGE [facility] DENTAL PLAN HP PREVENTIVE SR PREV TWOVISIT Care Teams [employer] Relationship Specialty [place] [address] [place] [address] PCP - General Family Practice 03/25/13
--- NOTE | 2024-10-04 11:50 | CRLHL7_ITS ---
For Patients: As a result of the Century Cures Act, medical imaging exams and procedure reports are released immediately into your electronic medical record. You may view this report before your referring provider. If you have questions, please contact your health care provider. INDICATION: Weakness. TECHNIQUE: Chest 1 view. COMPARISON: Chest radiographs dated 09/26/2024. FINDINGS: Unremarkable cardiomediastinal contours. Low lung volumes with diffuse interstitial prominence No definite pleural effusion. No pneumothorax. No acute osseous or soft tissue findings. IMPRESSION: Low lung volumes with diffuse interstitial prominence, which may be artifactual, but could reflect mild pulmonary edema or infection. Dictated by Norman Muse MD @ 10/04/2024 12:18:10 PM (Electronically Signed)
--- NOTE | 2024-10-04 11:58 | ED.GENADULT ---
HPI - General Adult General Chief complaint: Weakness Stated complaint: infection Time Seen by Provider: 10/04/24 11:34 History of Present Illness HPI narrative: Patient is a 79-year-old gentleman who has been seen in the emergency room twice this month for vertigo symptoms. He was treated symptomatically initially approximately a week ago and returned last night with continued difficulty with ambulation confusion and difficulty controlling his limbs. Also feels very dizzy. Both exams nothing overt was seen on the exam by the provider. Patient has had CT scan x2. Yesterday the patient was diagnosed with a UTI and placed on Keflex. Taking 1 dose of Keflex went to his primary care visit today where he was unable to really ambulate well and presents to the emergency room. He has had no pain. No dysuria no abdominal pain no fevers no chills. Patient presents via private car after being seen by his primary physician today. He has no to be mildly tachycardic but not febrile. He really has no other major complaint but is concerned due to the persistence of his symptoms. She has also been treated with meclizine with no change in his symptoms. Related Data Home Medications ?Medication ?Instructions ?Recorded ?Confirmed acetaminophen 325 mg tablet 650 mg PO Q6H PRN 05/09/22 10/04/24 (Tylenol) aspirin 325 mg tablet 325 mg PO Q6H PRN 05/09/22 10/04/24 aflibercept 2 mg/0.05 mL 2 mg intravitreal ONCE 05/22/23 10/04/24 intravitreal solution for injection (Eylea) gatifloxacin 0.5 % eye drops drp ophthalmic (eye) 11/06/23 10/04/24 ketorolac 0.5 % eye drops drp ophthalmic (eye) 11/06/23 10/04/24 prednisolone acetate 1 % eye drp ophthalmic (eye) 11/06/23 10/04/24 drops,suspension naproxen sodium 220 mg capsule 220 mg PO BID PRN 01/08/24 10/04/24 (Aleve) cephalexin 500 mg capsule 500 mg PO QID 10/04/24 10/04/24 Previous Rx's ?Medication ?Instructions ?Recorded amlodipine 10 mg tablet 10 mg PO DAILY #90 tabs 07/05/24 lisinopril 40 mg tablet 40 mg PO QDAY #90 tabs 07/05/24 blood sugar diagnostic (Blood #100 ea 09/30/24 Glucose Test strips) blood-glucose meter (Blood Glucose #1 ea 09/30/24 Monitoring kit) hydrochlorothiazide 25 mg tablet 25 mg PO QAM #30 tabs 09/30/24 lancets 23 gauge (Comfort EZ #100 ea 09/30/24 Lancets) meclizine 25 mg tablet 25 mg PO QID #20 tabs 10/03/24 Allergies Allergy/AdvReac Type Severity Reaction Status Date / Time cefadroxil AdvReac GI Verified 10/04/24 10:05 upset/bloody stools Review of Systems Status of ROS: Reports: 10 or more systems reviewed and unremarkable except as noted in History and below [facility] Medical History Diabetes ?E11.9 - Type 2 diabetes mellitus without complications (ICD-10) Pre-procedure lab exam ?Z01.812 - Encounter for preprocedural laboratory examination (ICD-10) Elevated PSA measurement ?R97.20 - Elevated prostate specific antigen [PSA] (ICD-10) History of agent [place] exposure ?Z77.098 - Contact with and (suspected) exposure to other hazardous, chiefly nonmedicinal, chemicals (ICD-10) Surgical History Status post knee replacement (~01/28/21) ?Z96.659 - Presence of unspecified artificial knee joint (ICD-10) Social History Smoking Status: Former smoker Do you use any of these nicotine containing products: None How often do you have a drink containing alcohol: 2-3 times a week How many standard drinks containing alcohol do you have on a typical day: 1 or 2 How often do you have six or more drinks on one occasion: Never AUDIT-C Alcohol total score: 3 Non-prescribed substance use: denies use Exam Narrative: Exam Narrative: EXAM GENERAL: Patient appears comfortable and well. EYES: No scleral icterus. LYMPH: No supraclavicular or cervical lymphadenopathy. SKIN: Visible skin seen during exam normal or with benign process only. EXT: No dependent lower extremity pedal edema. HEART: Regular rate and rhythm with no murmurs, rubs, or gallops. LUNGS: Clear to auscultation bilaterally with no crackles or wheezes. ABD: Soft, non tender, non distended. PSYCH: Good eye contact, speech is not pressured. Const: Vital Signs, click to edit/add: Vital Signs - 24 hr 10/04/24 11:34 10/04/24 11:57 10/04/24 12:00 Temperature 99.3 F Pulse Rate 106 H 103 H Pulse Rate [Pulse Oximeter] 105 H Respiratory Rate 22 Blood Pressure Blood Pressure [Ri ght Upper Arm] 109/72 Pulse Oximetry 91 90 90 Oxygen Delivery Me thod Room Air 10/04/24 12:02 10/04/24 12:03 10/04/24 12:15 Temperature Pulse Rate 106 H 101 H 102 H Pulse Rate [Pulse Oximeter] Respiratory Rate Blood Pressure 103/69 Blood Pressure [Ri ght Upper Arm] Pulse Oximetry 92 92 91 Oxygen Delivery Me thod 10/04/24 12:30 10/04/24 12:32 10/04/24 12:45 Temperature Pulse Rate 103 H 103 H 94 Pulse Rate [Pulse Oximeter] Respiratory Rate Blood Pressure 96/72 Blood Pressure [Ri ght Upper Arm] Pulse Oximetry 88 90 92 Oxygen Delivery Me thod 10/04/24 13:00 10/04/24 13:01 10/04/24 13:15 Temperature Pulse Rate 95 96 98 Pulse Rate [Pulse Oximeter] Respiratory Rate Blood Pressure 111/80 Blood Pressure [Ri ght Upper Arm] Pulse Oximetry 88 90 Oxygen Delivery Me thod 10/04/24 13:30 10/04/24 13:35 10/04/24 13:56 Temperature Pulse Rate 98 104 H 115 H Pulse Rate [Pulse Oximeter] Respiratory Rate Blood Pressure Blood Pressure [Ri ght Upper Arm] Pulse Oximetry 90 89 90 Oxygen Delivery Me thod 10/04/24 14:00 10/04/24 14:02 10/04/24 14:15 Temperature Pulse Rate 96 98 95 Pulse Rate [Pulse Oximeter] Respiratory Rate Blood Pressure 108/77 Blood Pressure [Ri ght Upper Arm] Pulse Oximetry 93 91 89 Oxygen Delivery Me thod 10/04/24 14:30 10/04/24 14:32 10/04/24 14:53 Temperature Pulse Rate 93 97 95 Pulse Rate [Pulse Oximeter] Respiratory Rate Blood Pressure 105/75 Blood Pressure [Ri ght Upper Arm] Pulse Oximetry 92 90 95 Oxygen Delivery Me thod 10/04/24 15:00 10/04/24 15:02 10/04/24 15:15 Temperature Pulse Rate 101 H 99 99 Pulse Rate [Pulse Oximeter] Respiratory Rate Blood Pressure 105/69 Blood Pressure [Ri ght Upper Arm] Pulse Oximetry 92 91 89 Oxygen Delivery Me thod 10/04/24 15:30 10/04/24 15:32 10/04/24 15:45 Temperature Pulse Rate 101 H 101 H 88 Pulse Rate [Pulse Oximeter] Respiratory Rate Blood Pressure 109/81 Blood Pressure [Ri ght Upper Arm] Pulse Oximetry 90 86 L 88 Oxygen Delivery Me thod 10/04/24 16:00 10/04/24 16:02 10/04/24 16:15 Temperature Pulse Rate 95 92 91 Pulse Rate [Pulse Oximeter] Respiratory Rate Blood Pressure 111/77 Blood Pressure [Ri ght Upper Arm] Pulse Oximetry 90 87 L 90 Oxygen Delivery Me thod 10/04/24 16:30 10/04/24 16:32 10/04/24 16:45 Temperature Pulse Rate 92 88 91 Pulse Rate [Pulse Oximeter] Respiratory Rate Blood Pressure 103/81 Blood Pressure [Ri ght Upper Arm] Pulse Oximetry 91 Oxygen Delivery Me thod 10/04/24 17:37 10/04/24 17:38 10/04/24 17:45 Temperature Pulse Rate 90 97 98 Pulse Rate [Pulse Oximeter] Respiratory Rate Blood Pressure 116/81 Blood Pressure [Ri ght Upper Arm] Pulse Oximetry 91 90 89 Oxygen Delivery Ok thod 10/04/24 18:00 Temperature Pulse Rate 179 H Pulse Rate [Pulse Oximeter] Respiratory Rate Blood Pressure Blood Pressure [Ri ght Upper Arm] Pulse Oximetry 90 Oxygen Delivery Me thod Course Course ED Course: Patient seen and examined. Normal saline given as a bolus. I did send off repeat comprehensive metabolic panel CBC lactate. We will reassess once we have our information from initial workup. Reevaluation(s) Reevaluation #1: Workup to this point has been puzzling. Patient has polycythemia with a hemoglobin of 19. He has had 2 CT scans of the head this week. He is being treated for urinary tract infection with Keflex. He has only had 1 dose. Urine cultures are negative to this point. Labs show a hemoglobin of 19. Patient is much more hypotensive than normal. I did call and discuss the case with Neurology and they do not recommend MRI or CTA but do recommend holding his blood pressure medication and treatment of his a urinary infection although the sample is somewhat questionable. I did send off blood cultures and at this time after discussion with the hospitalist will add CT of the chest abdomen pelvis with chest being PE protocol for D-dimer 0.69. Not certain what the etiology of his symptoms are at this time but favor UTI with hypotension. Vital Signs Vital signs: Initial Vital Signs Temperature 99.3 F 10/04/24 11:34 Temperature Source Temporal Artery Scan 10/04/24 11:34 Pulse Rate 105 H 10/04/24 11:34 Respiratory Rate 22 10/04/24 11:34 Blood Pressure 109/72 10/04/24 11:34 Blood Pressure Mean 84 10/04/24 11:34 Blood Pressure Position Supine 10/04/24 11:34 Pulse Oximetry 91 10/04/24 11:34 Oxygen Delivery Method Room Air 10/04/24 11:34 Vital Signs Temperature 99.3 F 10/04/24 11:34 Pulse Rate 105 H 10/04/24 11:34 Respiratory Rate 22 10/04/24 11:34 Blood Pressure 109/72 10/04/24 11:34 Pulse Oximetry 91 10/04/24 11:34 Oxygen Delivery Method Room Air 10/04/24 11:34 Temperature 99.3 F 10/04/24 11:34 Pulse Rate 179 H 10/04/24 18:00 Respiratory Rate 22 10/04/24 11:34 Blood Pressure 116/81 10/04/24 17:38 Pulse Oximetry 90 10/04/24 18:00 Oxygen Delivery Method Room Air 10/04/24 11:34 Medications Administered Medications: Discontinued Medications Generic Name Dose Route Start Last Admin Trade Name Freq PRN Reason Stop Dose Admin Piperacillin Sod/Tazobactam 100 mls @ 200 mls/hr 10/04/24 13:25 10/04/24 14:45 Sod 3.375 gm/ Sodium Chloride IVPB 10/04/24 13:26 Infused ONCE ONE Infusion Medical Decision Making MDM Narrative Medical decision making narrative: Patient is a 79-year-old gentleman who has a very for confusing presentation. He is being is 3rd appearance is month the emergency room for dizziness and difficulty with gait. He has been treated with meclizine as well as Keflex for UTI. The urine really was not that impressive yesterday and has had 2- CT scans. Patient is remarkably polycythemic. He has been falling and CT chest abdomen pelvis shows only alone rib fracture. Patient syncopal aspirin 325 daily. 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 Remote punctate hemorrhage of the right thalamus noted. Well as recommendations his CTA head neck to complete stroke workup as well as lowering the dose of his aspirin to 81 and starting Plavix at 75 mg daily. He will be admitted for further evaluation and treatment. Lab Data Labs: Lab Results 10/04/24 Range/Units 12:04 WBC 12.17 H (4.50-11.00) K/uL RBC 6.27 H (4.30-5.90) m/uL Hgb 19.0 H (13.5-17.5) gm/dL Hct 56.0 H (37.0-53.0) % MCV 89 (80-100) fL MCH 30 (26-34) pg MCHC 34 (32-36) gm/dL RDW Coeff of Scott 13.0 (11.5-15.5) % Plt Count 192 (140-440) K/uL Neut % (Auto) 77.1 H (42.0-72.0) % Lymph % (Auto) 11.6 L (20-44) % [place] % (Auto) 10.2 (0.0-11.0) % Eos % (Auto) 0.8 (0.0-7.0) % Baso % (Auto) 0.1 (0.0-3.0) % Neut # (Auto) 9.40 H (1.7-7.0) K/uL Lymph # (Auto) 1.40 (0.90-2.90) K/uL [place] # (Auto) 1.20 H (0.00-0.90) K/UL Eos # (Auto) 0.10 (0.00-0.50) K/uL Baso # (Auto) 0.00 (0.00-0.30) K/uL Abs Immat Gran (auto) 0.00 (0.00-0.30) K/uL Imm/Tot Granulo (auto) 0.2 % D-Dimer Quant (PE/DVT) 0.69 H (0.00-0.50) ug/ml Sodium 138 (135-149) mmol/L Potassium 4.2 (3.6-5.1) mmol/L Chloride 101 (96-114) mmol/L Carbon Dioxide 27 (20-32) mmol/L Anion Gap 10 (7-15) mEq/L BUN 31 H (7-30) mg/dL Creatinine 1.4 (0.5-1.5) mg/dL Estimated Creat Clear 48.50 Estimated GFR 52 ml/min Glucose 135 H (60-115) mg/dL Lactate 2.0 H (0.5-1.9) mmol/L Calcium 10.5 (8.4-10.6) mg/dL Total Bilirubin 1.5 (0.1-1.5) mg/dL AST 28 (12-35) U/L ALT 23 (4-50) U/L Alkaline Phosphatase 59 (40-150) U/L Troponin I < 0.01 (0.01-0.04) ng/mL Total Protein 7.6 (6.0-8.3) g/dL Albumin 4.4 (3.3-5.0) g/dL Discharge Plan Discharge Clinical Impression: Stroke Patient Disposition: Admitted As Observation Condition: Stable Activity Level: Other Discharge Diet: Other
[2024-10-04 12:15] LABS: Basophils Percent Auto 0.1 % (0.0-3.0); Eosinophils Percent Auto 0.8 % (0.0-7.0); Immature Granulocytes Pct Auto 0.2 %; Lymphocytes Percent Auto 11.6 % (20-44); Mean Corpuscular HGB Conc 34 gm/dL (32-36); Mean Corpuscular Hemoglobin 30 pg (26-34); Mean Corpuscular Volume 89 fL (80-100); Monocytes Percent Auto 10.2 % (0.0-11.0); Neutrophils Percent Auto 77.1 % (42.0-72.0); Platelet Count* 192 K/uL (140-440); Red Blood Count 6.27 m/uL (4.30-5.90); White Blood Count* 12.17 K/uL (4.50-11.00)
[2024-10-04 12:23] LABS: Slide Review Reflex No
[2024-10-04 12:28] LABS: Albumin* 4.4 g/dL (3.3-5.0); Chloride* 101 mmol/L (96-114)
[2024-10-04 12:29] LABS: Potassium* 4.2 mmol/L (3.6-5.1); Sodium* 138 mmol/L (135-149)
[2024-10-04 12:31] LABS: Blood Urea Nitrogen* 31 mg/dL (7-30); Creatinine* 1.4 mg/dL (0.5-1.5); Estimated Glomerular Filt Rate 52 ml/min
[2024-10-04 12:32] LABS: Alanine Aminotransferase* 23 U/L (4-50); Alkaline Phosphatase* 59 U/L (40-150); Anion Gap 10 mEq/L (7-15); Aspartate Amino Transferase* 28 U/L (12-35); Bilirubin Total* 1.5 mg/dL (0.1-1.5); Calcium* 10.5 mg/dL (8.4-10.6); Carbon Dioxide* 27 mmol/L (20-32); Glucose* 135 mg/dL (60-115); Total Protein* 7.6 g/dL (6.0-8.3)
[2024-10-04 12:50] LABS: Troponin I* < 0.01 ng/mL (0.01-0.04)
[2024-10-04 13:04] LABS: D Dimer Quantitative* 0.69 ug/ml (0.00-0.50)
--- NOTE | 2024-10-04 13:23 | CRLHL7_ITS ---
For Patients: As a result of the Century Cures Act, medical imaging exams and procedure reports are released immediately into your electronic medical record. You may view this report before your referring provider. If you have questions, please contact your health care provider. INDICATION: ELEVATED D-DIMER, ABD PAIN, FALL, RIB PAIN. TECHNIQUE: CT abdomen and pelvis acquired with 95 cc Isovue 370 IV contrast. COMPARISON: None. FINDINGS: Lower chest: Unremarkable. Liver: Right hepatic lobe subcentimeter hypodensity, too small to characterize. Gallbladder and bile ducts: Unremarkable. No stones or inflammation. No biliary dilatation. Pancreas: Unremarkable. No mass or inflammation. Spleen: Subcentimeter enhancing focus (50) which is nonspecific, but may reflect a hemangioma. Adrenal glands: Unremarkable. No nodules. Kidneys: Bilateral renal cysts and other subcentimeter hypodensities, too small to characterize. No hydroureteronephrosis. GI tract: Rectal suture line. Colonic diverticulosis. Bowel is normal in caliber without evidence of obstruction. Vasculature: Abdominal aorta is normal in caliber. Mesenteric arteries are patent. Lymph nodes: No lymphadenopathy. Peritoneum/Abdominal Wall: Small fat containing left inguinal hernia. No sign of mass or infiltration. No free air or significant free fluid. Pelvis: Marked prostatomegaly. Scattered calcifications in the prostate and along the dependent bladder base, which may at least partially reflect bladder calculi. Bones: Subtle focal lucency along outer table of anterior left 6th rib (2/35). No other evident acute fractures. Multilevel degenerative changes in the visualized thoracolumbar spine with at least mild spinal canal stenosis at L2-3. IMPRESSION: 1. Likely acute nondisplaced fracture of the left anterior 6th rib. 2. No other evident acute traumatic findings in the abdomen or pelvis. Please note that all CT scans at this facility use dose modulation, iterative reconstruction, and/or weight-based dosing when appropriate to reduce radiation dose to as low as reasonably achievable. Dictated by Norman Muse MD @ 10/04/2024 2:41:53 PM (Electronically Signed)
--- NOTE | 2024-10-04 13:23 | CRLHL7_ITS ---
For Patients: As a result of the Century Cures Act, medical imaging exams and procedure reports are released immediately into your electronic medical record. You may view this report before your referring provider. If you have questions, please contact your health care provider. INDICATION: ELEVATED D-DIMER, ABD PAIN, FALL, LEFT ANTERIOR RIB PAIN. TECHNIQUE: CT chest PE was acquired with 95 cc Isovue 370 IV contrast. MIP reformations provided COMPARISON: None. FINDINGS: Heart and vasculature: Contrast opacification of the pulmonary arterial tree is adequate to the level of the proximal segmental arteries. No sign of pulmonary embolism. Heart size is normal. Thoracic aorta is normal in caliber. Lungs: Respiratory motion artifact limits fine detail evaluation of the lung parenchyma. Relatively low lung volumes. Asymmetric elevation of the right hemidiaphragm. Diffuse bronchial wall thickening. No evident suspicious pulmonary nodules or infiltrates. Pleura: No pleural effusion or pneumothorax. Lymph nodes/mediastinum: No mediastinal, hilar, or axillary adenopathy. Chest wall: No masses. Bones: No evident acute fractures IMPRESSION: 1. No acute pulmonary embolism to the level of the proximal segmental arteries. 2. No evident acute fractures. 3. Diffuse bronchial wall thickening, which may reflect reactive or infectious small airways disease. Please note that all CT scans at this facility use dose modulation, iterative reconstruction, and/or weight-based dosing when appropriate to reduce radiation dose to as low as reasonably achievable. Dictated by Norman Muse MD @ 10/04/2024 2:30:43 PM (Electronically Signed)
[2024-10-04] MEDS: PIPERACILLIN/TAZOBACTAM 3.375 GM in 0.9 % SODIUM CHLORIDE Mini-bag 100 ML IVPB (14:08)
--- NOTE | 2024-10-04 15:03 | CRLHL7_ITS ---
For Patients: As a result of the Century Cures Act, medical imaging exams and procedure reports are released immediately into your electronic medical record. You may view this report before your referring provider. If you have questions, please contact your health care provider. Indication: UNSTEADY Technique: Noncontrast sagittal T1 weighted, axial FLAIR, axial T2 weighted, and axial diffusion weighted sequences are provided. Comparison: CT head 10/03/2024 Findings: There is a 1.3 centimeter focus of diffusion restriction and T2 prolongation in the right anteromedial thalamus and a 1.1 cm focus of diffusion restriction in the right medial cerebral peduncle compatible with acute ischemic infarcts. No significant mass effect. There is a punctate focus of susceptibility artifact in the right thalamus located posterior to the acute infarct compatible with remote microhemorrhage. No suspicious extra-axial collection or acute intracranial hemorrhage. The FLAIR sequences limited by motion artifact. Mild parenchymal volume loss. Multiple scattered foci of T2 prolongation in the supratentorial subcortical and periventricular white matter are nonspecific but likely represent chronic small vessel ischemic changes. Expected intracranial vascular flow voids are preserved. Calvarial bone marrow signal is within normal limits. The scalp and soft tissues are grossly normal. The orbits are unremarkable. Prior cataract surgery changes. Impression: 1. 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 2. Remote punctate microhemorrhage in the right thalamus. 3. Mild parenchymal volume loss and chronic small vessel ischemic changes. Dictated by José Mcmahon MD @ 10/04/2024 5:44:32 PM (Electronically Signed)
--- NOTE | 2024-10-04 18:11 | CRLHL7_ITS ---
For Patients: As a result of the Century Cures Act, medical imaging exams and procedure reports are released immediately into your electronic medical record. You may view this report before your referring provider. If you have questions, please contact your health care provider. CLINICAL HISTORY: Acute neurological deficit. TECHNIQUE: Standard helical CT image acquisition through the head following the administration of intravenous contrast was performed. 3D and MIP reconstructions were performed at a separate workstation and permanently archived. COMPARISON: None available. FINDINGS: No intracranial proximal large vessel occlusion. Intracranial atherosclerotic disease with moderate to severe stenosis of the P2 left [employer] and mild to moderate stenosis of the intracranial right vertebral artery. No evidence of cerebral aneurysm. No findings to suggest an arterial-venous shunting lesion. The major dural venous sinuses and deep venous system are patent. 1.7cm soft tissue lesion in the right parotid gland. IMPRESSION: 1. Intracranial atherosclerotic disease with moderate to severe stenosis of the P2 left [employer] and mild to moderate stenosis of the intracranial right vertebral artery. 2. 1.7cm soft tissue lesion in the right parotid gland. 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 Please note that all CT scans at this facility use dose modulation, iterative reconstruction, and/or weight-based dosing when appropriate to reduce radiation dose to as low as reasonably achievable. Dictated by Pancho Kirk MD @ 10/05/2024 10:21:29 AM (Electronically Signed)
--- NOTE | 2024-10-04 18:12 | CRLHL7_ITS ---
For Patients: As a result of the Century Cures Act, medical imaging exams and procedure reports are released immediately into your electronic medical record. You may view this report before your referring provider. If you have questions, please contact your health care provider. INDICATION: Acute neurological deficit. COMPARISON: None available. TECHNIQUE: CTA neck with contrast bolus tracking, 3D angiographic rendering using maximum intensity projection (MIP) and images permanently archived. FINDINGS: The origins of the great vessels are patent. There is carotid atherosclerosis bilaterally. There is no significant left carotid artery stenosis or dissection. There is atherosclerotic plaque in the proximal right ICA resulting in a mild (<50%) stenosis by NASCET criteria. The origins of the vertebral arteries are not well assessed on this examination due to artifact. There is no otherwise no significant vertebral artery stenosis or dissection. IMPRESSION: Mild (<50%) stenosis of the proximal right ICA by NASCET criteria. Please note that all CT scans at this facility use dose modulation, iterative reconstruction, and/or weight-based dosing when appropriate to reduce radiation dose to as low as reasonably achievable. Dictated by Pancho Kirk MD @ 10/05/2024 9:54:31 AM (Electronically Signed)
[2024-10-04] MEDS: CLOPIDOGREL 75 MG TABLET PO (18:31)
--- NOTE | 2024-10-04 20:58 | PM.IMHP1 ---
Assessment and Plan Assessment and plan (1) Stroke: Problem comment: -sudden onset of vertigo on 09/25/2024, persistent since, assessed for the same on 09/26/[address] [facility] ED, 09/30/24 in the clinic, 10/03/[address] [facility] ED, on 10/04/24 in the clinic, and today in the [facility] ED. -CT scan of head without contrast on 09/26/24 and 10/03/24 demonstrated, Normal brain parenchymal morphology. Stable small focal low-attenuation change of the right thalamus consistent with an old lacunar infarct. -MRI of brain 10/04/24 demonstrated, 1. 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 2. Remote punctate microhemorrhage in the right thalamus. 3. Mild parenchymal volume loss and chronic small vessel ischemic changes. -Dr. Dennison, ED physician, reviewed with neurology: stop ASA 325 qd; start ASA 81 mg qd; start clopidogrel 75 mg qd; monitor overnight; telemetry; ECHO; lipids; hemoglobin (has chronic erythrocytosis); HgA1C; hold anti-HTN meds to allow for permissive HTN with goal of SBP <180 mmHg; PT and OT consultation; confer with neurology on 10/05/24 Status: Acute (2) Diabetes: Problem comment: - follows with Dr. 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 Anthony, oncologist Status: Acute (6) History of atrial fibrillation: Problem comment: -04/06/2024 Status: Acute (7) Rib fracture: Problem comment: -s/p fall with vertigo -CT abd/pelvis 10/04/24: Likely acute nondisplaced fracture of the left anterior 6th rib. -CT chest 10/04/24: No evident acute fractures. Status: Acute Plan 1. Reviewed impression, recommendations, plans with patient 2. Answered his questions to his satisfaction 3. He is agreeable with above stated plans and recommendations Total Time Spent Total Time Spent: 70 minutes Hospitalist- H&P: HPI History of Present Illness Date Seen: 10/04/24 Chief complaint: new vertigo since 09/25/2024 not resolving Narrative: Armen Crump is a 79 year old man presents to the emergency department late morning 10/04/2024 with non resolving vertigo since it suddenly started on 09/25/2024. No other focal motor neurologic deficits. Assessed in the emergency department on 09/26/2024, 10/03/2024, and again today for the same. Also assessed in the clinic on 09/30/2024 and earlier in the morning on 10/04/2024 for the same. On assessment in the emergency department today MR scan of the brain demonstrate acute ischemic infarctions in the right anteromedial thalamus and right medial cerebral peduncle plus remote punctate microhemorrhage in the right thalamus in the background setting of mild parenchymal volume loss and chronic small-vessel ischemic changes. Discussion undertaken with Neurology who recommended overnight observation and additional monitoring with some adjustments in his medications. Review of Systems Status of ROS: Reports: 6 or more systems reviewed and unremarkable except as noted in History and below Narrative: Longstanding erythrocytosis with hemoglobins ranging between 17 and 20. Extensive evaluation for the same at the [facility] in [place], [place]. Continues to follow with the [facility], his oncologist, and his primary care physician for the same. Does have history of tobacco use which he quit in the 1970s. Ongoing issues with his eyes for which she receives frequent care and treatments for the same including macular degeneration. 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 Follows with his primary care physician about elevated glucose levels, fingerstick blood glucose levels at home range from 140-190. Medical Decision Making Medical Decision Making Has patient completed a Health Care Directive: No During This Stay, Who Would You Like To Make Decisions For You In The Event You Are Unable To Make Them For Yourself?: Cara Crump [phone] [facility] Medical History Adverse effect of non-steroidal anti-inflammatory drug (NSAID) ?T39.395A - Adverse effect of other nonsteroidal anti-inflammatory drugs [NSAID], initial encounter (ICD-10) Calculus of kidney ?N20.0 - Calculus of kidney (ICD-10) Enlarged prostate ?N40.0 - Benign prostatic hyperplasia without lower urinary tract symptoms (ICD-10) Gout ?M10.9 - Gout, unspecified (ICD-10) Hypertension ?I10 - Essential (primary) hypertension (ICD-10) Mass of right kidney ?N28.89 - Other specified disorders of kidney and ureter (ICD-10) Prediabetes ?R73.03 - Prediabetes (ICD-10) Atrial fibrillation ?I48.91 - Unspecified atrial fibrillation (ICD-10) 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 neoplasm of rectosigmoid junction (ICD-10) Polycythemia ?D75.1 - Secondary polycythemia (ICD-10) Reoccurring knee pain ?M25.569 - Pain in unspecified knee (ICD-10) Knee pain, right ?M25.561 - Pain in right knee (ICD-10) 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 (ICD-10) Diabetes ?E11.9 - Type 2 diabetes mellitus without complications (ICD-10) Pre-procedure lab exam ?Z01.812 - Encounter for preprocedural laboratory examination (ICD-10) Elevated PSA measurement ?R97.20 - Elevated prostate specific antigen [PSA] (ICD-10) History of agent Dolores exposure ?Z77.098 - Contact with and (suspected) exposure to other hazardous, chiefly nonmedicinal, chemicals (ICD-10) Surgical History Status post knee replacement (~01/28/21) ?Z96.659 - Presence of unspecified artificial knee joint (ICD-10) Social History What is your current living situation?: I presently have a place to live Problems where you live: no known problems Problems where you live details: [facility] In the past 12 months, utilities in danger of being shut off: no In past 12 months, lack of transportation kept you from medical appts, meetings, work, or getting things needed for daily living: no In the past 12 mos, have been you worried that your food would run out before you had money to buy more?: never true In the past 12 mos, the food you bought just didn't last and you didn't have money to buy more?: never true Highest level of school completed/degree received: high school graduate Smoking Status: Former smoker Do you use any of these nicotine containing products: None Second hand tobacco smoke exposure: No How often do you have a drink containing alcohol: 2-3 times a week Alcohol type: hard liquor How many standard drinks containing alcohol do you have on a typical day: 1 or 2 How often do you have six or more drinks on one occasion: Never AUDIT-C Alcohol total score: 3 Non-prescribed substance use: denies use Caffeine: Yes (3-4 cups daily) How often does anyone, including family, friends and others, physically hurt you: never How often does anyone, including family, friends and others, insult or talk down to you: never How often does anyone, including family, friends and others, threaten you with harm: never How often does anyone, including family, friends and others, scream or curse at you: never service: Yes Meds Home Medications and Allergies Home Medications ?Medication ?Instructions ?Recorded ?Confirmed ?Type acetaminophen 325 mg tablet 650 mg PO Q6H PRN 05/09/22 10/04/24 History (Tylenol) aspirin 325 mg tablet 325 mg PO Q6H PRN 05/09/22 10/04/24 History aflibercept 2 mg/0.05 mL 2 mg intravitreal ONCE 05/22/23 10/04/24 History intravitreal solution for injection (Eylea) gatifloxacin 0.5 % eye drops drp ophthalmic (eye) 11/06/23 10/04/24 History ketorolac 0.5 % eye drops drp ophthalmic (eye) 11/06/23 10/04/24 History prednisolone acetate 1 % eye drp ophthalmic (eye) 11/06/23 10/04/24 History drops,suspension naproxen sodium 220 mg capsule 220 mg PO BID PRN 01/08/24 10/04/24 History (Aleve) amlodipine 10 mg tablet 10 mg PO DAILY #90 tabs 07/05/24 10/04/24 Rx lisinopril 40 mg tablet 40 mg PO QDAY #90 tabs 07/05/24 10/04/24 Rx blood sugar diagnostic (Blood #100 ea 09/30/24 10/04/24 Rx Glucose Test strips) blood-glucose meter (Blood Glucose #1 ea 09/30/24 10/04/24 Rx Monitoring kit) hydrochlorothiazide 25 mg tablet 25 mg PO QAM #30 tabs 09/30/24 10/04/24 Rx lancets 23 gauge (Comfort EZ #100 ea 09/30/24 10/04/24 Rx Lancets) meclizine 25 mg tablet 25 mg PO QID #20 tabs 10/03/24 10/04/24 Rx cephalexin 500 mg capsule 500 mg PO QID 10/04/24 10/04/24 History Allergies Allergy/AdvReac Type Severity Reaction Status Date / Time cefadroxil AdvReac GI Verified 10/04/24 18:59 upset/bloody stools Exam Narrative: Exam Narrative: Examined patient in his hospital room. Appears comfortable and in no acute distress. Talkative and articulate. Friendly and cooperative. Alert and oriented x4. No spontaneous or inducible nystagmus. Cranial nerves 3-12 grossly normal. No focal motor neurologic deficits. Normal rapid alternating movements of the right upper extremity and slightly decreased on the left upper extremity. Known baseline decreased visual acuity. Neck is supple. Midline trachea. Lungs are clear to auscultation without wheezing, rhonchi, or rales. Heart tones with regular rhythm, normal S1-S2. No obvious murmurs, gallops, or rubs. PMI not laterally displaced. Moves all 4 extremities. No dependent edema. Const: Vital Signs, click to edit/add: Vital Signs - 24 hr 10/04/24 11:34 10/04/24 11:57 10/04/24 12:00 Temperature 99.3 F Pulse Rate 106 H 103 H Pulse Rate [Pulse Oximeter] 105 H Respiratory Rate 22 Blood Pressure Blood Pressure [Le ft Arm] Blood Pressure [Ri ght Upper Arm] 109/72 Pulse Oximetry 91 90 90 Oxygen Delivery Me thod Room Air 10/04/24 12:02 10/04/24 12:03 10/04/24 12:15 Temperature Pulse Rate 106 H 101 H 102 H Pulse Rate [Pulse Oximeter] Respiratory Rate Blood Pressure 103/69 Blood Pressure [Le ft Arm] Blood Pressure [Ri ght Upper Arm] Pulse Oximetry 92 92 91 Oxygen Delivery Me thod 10/04/24 12:30 10/04/24 12:32 10/04/24 12:45 Temperature Pulse Rate 103 H 103 H 94 Pulse Rate [Pulse Oximeter] Respiratory Rate Blood Pressure 96/72 Blood Pressure [Le ft Arm] Blood Pressure [Ri ght Upper Arm] Pulse Oximetry 88 90 92 Oxygen Delivery Me thod 10/04/24 13:00 10/04/24 13:01 10/04/24 13:15 Temperature Pulse Rate 95 96 98 Pulse Rate [Pulse Oximeter] Respiratory Rate Blood Pressure 111/80 Blood Pressure [Le ft Arm] Blood Pressure [Ri ght Upper Arm] Pulse Oximetry 88 90 Oxygen Delivery Me thod 10/04/24 13:30 10/04/24 13:35 10/04/24 13:56 Temperature Pulse Rate 98 104 H 115 H Pulse Rate [Pulse Oximeter] Respiratory Rate Blood Pressure Blood Pressure [Le ft Arm] Blood Pressure [Ri ght Upper Arm] Pulse Oximetry 90 89 90 Oxygen Delivery Me thod 10/04/24 14:00 10/04/24 14:02 10/04/24 14:15 Temperature Pulse Rate 96 98 95 Pulse Rate [Pulse Oximeter] Respiratory Rate Blood Pressure 108/77 Blood Pressure [Le ft Arm] Blood Pressure [Ri ght Upper Arm] Pulse Oximetry 93 91 89 Oxygen Delivery Me thod 10/04/24 14:30 10/04/24 14:32 10/04/24 14:53 Temperature Pulse Rate 93 97 95 Pulse Rate [Pulse Oximeter] Respiratory Rate Blood Pressure 105/75 Blood Pressure [Le ft Arm] Blood Pressure [Ri ght Upper Arm] Pulse Oximetry 92 90 95 Oxygen Delivery Me thod 10/04/24 15:00 10/04/24 15:02 10/04/24 15:15 Temperature Pulse Rate 101 H 99 99 Pulse Rate [Pulse Oximeter] Respiratory Rate Blood Pressure 105/69 Blood Pressure [Le ft Arm] Blood Pressure [Ri ght Upper Arm] Pulse Oximetry 92 91 89 Oxygen Delivery Me thod 10/04/24 15:30 10/04/24 15:32 10/04/24 15:45 Temperature Pulse Rate 101 H 101 H 88 Pulse Rate [Pulse Oximeter] Respiratory Rate Blood Pressure 109/81 Blood Pressure [Le ft Arm] Blood Pressure [Ri ght Upper Arm] Pulse Oximetry 90 86 L 88 Oxygen Delivery Me thod 10/04/24 16:00 10/04/24 16:02 10/04/24 16:15 Temperature Pulse Rate 95 92 91 Pulse Rate [Pulse Oximeter] Respiratory Rate Blood Pressure 111/77 Blood Pressure [Le ft Arm] Blood Pressure [Ri ght Upper Arm] Pulse Oximetry 90 87 L 90 Oxygen Delivery Ks thod 10/04/24 16:30 10/04/24 16:32 10/04/24 16:45 Temperature Pulse Rate 92 88 91 Pulse Rate [Pulse Oximeter] Respiratory Rate Blood Pressure 103/81 Blood Pressure [Le ft Arm] Blood Pressure [Ri ght Upper Arm] Pulse Oximetry 91 [facility] 10/04/24 17:37 10/04/24 17:38 10/04/24 17:45 Temperature Pulse Rate 90 97 98 Pulse Rate [Pulse Oximeter] Respiratory Rate Blood Pressure 116/81 Blood Pressure [Le ft Arm] Blood Pressure [Ri ght Upper Arm] Pulse Oximetry 91 90 89 [facility] Delivery [facility] 10/04/24 18:00 10/04/24 18:06 10/04/24 18:54 Temperature 98.9 F Pulse Rate Pulse Rate [Pulse Oximeter] 98 Respiratory Rate 22 Blood Pressure 136/99 H Blood Pressure [Le ft Arm] 118/76 Blood Pressure [Ri ght Upper Arm] Pulse Oximetry 90 93 Oxygen Delivery [facility] Room Air 10/04/24 19:45 10/04/24 19:45 Temperature 98.0 F Pulse Rate Pulse Rate [Pulse Oximeter] 87 Respiratory Rate 16 16 Blood Pressure Blood Pressure [Le ft Arm] 114/67 Blood Pressure [Ri ght Upper Arm] Pulse Oximetry 91 91 Oxygen Delivery Ks thod Room Air Room Air Hospitalist - H&P: Result Labs Labs: Short CBC 10/04/24 Range/Units 12:04 WBC 12.17 H (4.50-11.00) K/uL Hgb 19.0 H (13.5-17.5) gm/dL Hct 56.0 H (37.0-53.0) % Plt Count 192 (140-440) K/uL BMP 10/04/24 12:04 Sodium 138 Potassium 4.2 Chloride 101 Carbon Dioxide 27 BUN 31 H Creatinine 1.4 Glucose 135 H Calcium 10.5 Cardiac Enzymes 10/04/24 Range/Units 12:04 Troponin I < 0.01 (0.01-0.04) ng/mL Liver Function 10/04/24 Range/Units 12:04 Total Bilirubin 1.5 (0.1-1.5) mg/dL AST 28 (12-35) U/L ALT 23 (4-50) U/L Alkaline Phosphatase 59 (40-150) U/L Albumin 4.4 (3.3-5.0) g/dL ECG Attestation: I personally reviewed and interpreted this ECG as follows: Interpretation: sinus tachycardia. Imaging Chest x-ray: Attestation: I have reviewed the pertinent imaging results. Radiologist's impression: IMPRESSION: Low lung volumes with diffuse interstitial prominence, which may be artifactual, but could reflect mild pulmonary edema or infection. CT scan - chest: Attestation: I have reviewed the pertinent imaging results. Radiologist's impression: IMPRESSION: 1. Likely acute nondisplaced fracture of the left anterior 6th rib. 2. No other evident acute traumatic findings in the abdomen or pelvis. MRI - head: Attestation: I have reviewed the pertinent imaging results. Radiologist's impression: Findings: There is a 1.3 centimeter focus of diffusion restriction and T2 prolongation in the right anteromedial thalamus and a 1.1 cm focus of diffusion restriction in the right medial cerebral peduncle compatible with acute ischemic infarcts. No significant mass effect. There is a punctate focus of susceptibility artifact in the right thalamus located posterior to the acute infarct compatible with remote microhemorrhage. No suspicious extra-axial collection or acute intracranial hemorrhage. The FLAIR sequences limited by motion artifact. Mild parenchymal volume loss. Multiple scattered foci of T2 prolongation in the supratentorial subcortical and periventricular white matter are nonspecific but likely represent chronic small vessel ischemic changes. Expected intracranial vascular flow voids are preserved. Calvarial bone marrow signal is within normal limits. The scalp and soft tissues are grossly normal. The orbits are unremarkable. Prior cataract surgery changes. Impression: 1. 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 2. Remote punctate microhemorrhage in the right thalamus. 3. Mild parenchymal volume loss and chronic small vessel ischemic changes. CTA of head and neck: Radiologist's impression: 1. No definite large vessel occlusion, aneurysm, dissection, or vascular malformation. Origins of the vertebral arteries are non diagnostically evaluated due to artifact. 2. 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 3. 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
[2024-10-04] MEDS: lisinopriL 20 MG TABLET 40 MG PO (22:25)
[2024-10-04] MEDS: SODIUM CHLORIDE 0.9 % (FLUSH) 10 ML SYRINGE 5 ML IVF (22:26)
[2024-10-05] VITALS (8 sets, daily range): BP systolic 100–138; BP diastolic 63–101; PULSE 90–103; RESP 16–18; TEMP 36.5–36.8; O2SAT 91–96
[2024-10-05] MEDS: ACETAMINOPHEN 325 MG TABLET 650 MG PO ×2 (00:03→21:08)
[2024-10-05 06:35] LABS: Lactate* 1.1 mmol/L (0.5-1.9)
[2024-10-05 06:49] LABS: Basophils Absolute Auto 0.02 K/uL (0.00-0.30); Basophils Percent Auto 0.2 % (0.0-3.0); Eosinophils Absolute Auto 0.26 K/uL (0.00-0.50); Eosinophils Percent Auto 2.8 % (0.0-7.0); Hematocrit 56.3 % (37.0-53.0); Hemoglobin* 18.9 gm/dL (13.5-17.5); Immature Granulocytes Abs Auto 0.04 K/uL (0.00-0.30); Immature Granulocytes Pct Auto 0.4 %; Lymphocytes Percent Auto 18.2 % (20-44); Mean Corpuscular HGB Conc 34 gm/dL (32-36); Mean Corpuscular Hemoglobin 30 pg (26-34); Mean Corpuscular Volume 91 fL (80-100); Neutrophils Absolute Auto 6.16 K/uL (1.7-7.0); Neutrophils Percent Auto 66.4 % (42.0-72.0); Platelet Count* 200 K/uL (140-440); Red Blood Count 6.21 m/uL (4.30-5.90); White Blood Count* 9.28 K/uL (4.50-11.00)
[2024-10-05 06:59] LABS: Chloride* 100 mmol/L (96-114); Potassium* 4.6 mmol/L (3.6-5.1); Sodium* 137 mmol/L (135-149)
[2024-10-05 07:00] LABS: Slide Review Reflex No
[2024-10-05 07:02] LABS: Anion Gap 10 mEq/L (7-15); Blood Urea Nitrogen* 32 mg/dL (7-30); Carbon Dioxide* 27 mmol/L (20-32); Cholesterol* 152 mg/dL (90-199); Creatinine* 1.2 mg/dL (0.5-1.5); Est. Creatinine Clearance* 56.58; Estimated Glomerular Filt Rate 62 ml/min; Triglycerides* 102 mg/dL (40-149)
[2024-10-05 07:03] LABS: Calcium* 9.6 mg/dL (8.4-10.6); Glucose* 119 mg/dL (60-115); HDL Cholesterol* 32 mg/dL (>=40); LDL Cholesterol Calculated 100 mg/dL (<100); Magnesium* 2.1 mg/dL (1.5-2.6); Phosphorus* 4.1 mg/dL (2.5-4.5)
--- NOTE | 2024-10-05 07:23 | PC.NURSE ---
Pt pleasant, alert and oriented. VSS. Pt gait unsteady, FWW and gait belt utilized, 1a. Denies dizziness. Bed alarm utilized. Pain rated 2-3/10, prn tylenol given. Pt in bed, appears to be resting, call light within reach.
[2024-10-05] MEDS: CLOPIDOGREL 75 MG TABLET PO (08:58)
[2024-10-05] MEDS: ASPIRIN 81 MG TAB.CHEW PO (08:58)
[2024-10-05] MEDS: SODIUM CHLORIDE 0.9 % (FLUSH) 10 ML SYRINGE 5 ML IVF ×2 (08:59→21:08)
[2024-10-05] MEDS: 0.9 % SODIUM CHLORIDE 1000 ml 1,000 ML 500 ML IV (10:10)
--- NOTE | 2024-10-05 16:11 | PM.IMPN1 ---
Assessment and Plan Assessment and plan (1) Mass of salivary gland: Problem comment: bx 11/14 Gutierrez Positive for neoplasm. Salivary gland neoplasm with oncocytic features. See comment Comment: Differential diagnosis based on the cytological findings would include an oncocytoma, oncocytic carcinoma, oncocytic metaplasia, oncocytosis (nodular oncocytic hyperplasia) and Warthin's tumor. Status: Inactive (2) Ischemic stroke: Problem comment: -sudden onset of vertigo on 09/25/2024, persistent since, assessed for the same on 09/26/24 in the [facility] ED, 09/30/24 in the clinic, 10/03/24 in the [facility] ED, on 10/04/24 in the clinic, and today in the [facility] ED. -CT scan of head without contrast on 09/26/24 and 10/03/24 demonstrated, Normal brain parenchymal morphology. Stable small focal low-attenuation change of the right thalamus consistent with an old lacunar infarct. -MRI of brain 10/04/24 demonstrated, 1. 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 2. Remote punctate microhemorrhage in the right thalamus. 3. Mild parenchymal volume loss and chronic small vessel ischemic changes. -Dr. Dennison, ED physician, reviewed with neurology: stop ASA 325 qd; start ASA 81 mg qd; start clopidogrel 75 mg qd; monitor overnight; telemetry; ECHO; lipids; hemoglobin (has chronic erythrocytosis); HgA1C; hold anti-HTN meds to allow for permissive HTN with goal of SBP <180 mmHg; PT and OT consultation; confer with neurology on 10/05/24 10/05/24 worsening symptoms until MRI likely means expansion. blood pressure support (fluids, hold lisinopril) is very important -echo, lipids, A1C all reviewed -likely discharge 10/06 Status: Acute (3) REBECCA (obstructive sleep apnea): Problem comment: -needs updated outpatient sleep study Status: Acute (4) History of atrial fibrillation: Problem comment: -currently in sinus. no OAC. -will discharge with zio patch. Status: Acute (5) Diabetes: Problem comment: -A1C 6.5 -no meds -BMI 32 and now hx of CVA - role for a GLP-1 is indicated - follows with Dr. Dowling Status: Acute (6) Polycythemia: Problem comment: -[facility] Status: Acute (7) Hypertension: Problem comment: -3 med regimen (lisinopril, hctz, amlodipine) -holding all three -fluid bolus for support overnight Status: Acute Subjective Date Seen: 10/05/24 Interval history: Daily Progress Note - #: 2 CC: acute ischemic stroke in the right midbrain and thalamus 24 HOUR UPDATE: improved clinically. blood pressure was soft overnight and this am - now improved. Reviewed Neurology's note Etiology is small vessel disease. Risk factors are hypertension and age greater than 70. He also has a chronically high hemoglobin of around 19 but platelet counts are normal. He was not on antithrombotics [employer]. Of note he had 1 episode of A-fib during a procedure in the past but is not known to have paroxysmal A-fib. I do not think this stroke was a result of a cardioembolic process, however it is possible and therefore he should have cardiac monitoring on discharge. Of note his worsening suggests expansions. He will need good cerebral perfusion and therefore I recommend holding his lisinopril for the next 2 weeks. We also discussed the importance of staying hydrated. ? - Continuous cardiac monitoring - Aspirin 81 mg and Plavix 75 mg daily - Continue DAPT for 1 month, then aspirin monotherapy thereafter - Permissive hypertension, hold lisinopril for the next 2 weeks - TTE to evaluate for a cardiac source - LDL goal is less than 70, start atorvastatin 40 mg daily - PT/OT/Speech consults - Frequent neuro checks - SCDs while in bed - reason for no lytic: Outside of window - reason for no MAYITO: No LVO - Zio Patch for 28 days after discharge - Follow up with [facility] after discharge. Please call [phone] to schedule an appointment. Notable Labs, Micro, Rads, Interventions: CBC is improved. Hemoglobin 18.9 Platelet count 200 Total white blood cell count 9.2 Electrolytes and renal function are all improved were stable. Lipids are reviewed and total cholesterol is 152 with an LDL of 100 HDL of 32. A1C 6.5 Echo prelim reviewed. no concerns. Objective: talkative; aware, participating Vitals: see above Lungs: Clear. Cardiac: S1S2. regular Neuro: No CN deficits. speech normal. gait is most affected. rev'd PT assessment (Lower Left leg weakness, leans left and effect of diplopia) Disposition/Potential discharge - home in am or on 6/16. outpatient (likely) for PT/OT. Today I spent 50minutes seeing the patient, reviewing Expanse and EPIC notes/diagnostics, discussing the care plan with our care time that includes social work, PT/OT, pharmacy, RT, correction and documenting my impressions and plan in the medical record. Exam Const: Vital Signs, click to edit/add: Vital Signs - 24 hr 10/04/24 16:15 10/04/24 16:30 10/04/24 16:32 Temperature Pulse Rate 91 92 88 Pulse Rate [Pulse Oximeter] Pulse Rate [orthos tatic lying Right Pulse Oximeter] Pulse Rate [orthos tatic sitting Righ t Pulse Oximeter] Pulse Rate [orthos tatic standing Rig ht Pulse Oximeter] Respiratory Rate Blood Pressure 103/81 Blood Pressure [Le ft Arm] Blood Pressure [or thostatic lying Le ft Arm] Blood Pressure [or thostatic sitting Left Arm] Blood Pressure [or thostatic standing Left Arm] Pulse Oximetry 90 [facility] 10[facility] 16:45 10/04/24 17:37 10/04/24 17:38 Temperature Pulse Rate 91 90 97 Pulse Rate [Pulse Oximeter] Pulse Rate [orthos tatic lying Right Pulse Oximeter] Pulse Rate [orthos tatic sitting Righ t Pulse Oximeter] Pulse Rate [orthos tatic standing Rig ht Pulse Oximeter] Respiratory Rate Blood Pressure 116/81 Blood Pressure [Le ft Arm] Blood Pressure [or thostatic lying Le ft Arm] Blood Pressure [or thostatic sitting Left Arm] Blood Pressure [or thostatic standing Left Arm] Pulse Oximetry 91 90 Oxygen Delivery Ri thod 10/04/24 17:45 10/04/24 18:00 10/04/24 18:06 Temperature Pulse Rate 98 Pulse Rate [Pulse Oximeter] Pulse Rate [orthos tatic lying Right Pulse Oximeter] Pulse Rate [orthos tatic sitting Righ t Pulse Oximeter] Pulse Rate [orthos tatic standing Rig ht Pulse Oximeter] Respiratory Rate Blood Pressure 136/99 H Blood Pressure [Le ft Arm] Blood Pressure [or thostatic lying Le ft Arm] Blood Pressure [or thostatic sitting Left Arm] Blood Pressure [or thostatic standing Left Arm] Pulse Oximetry 89 90 [facility] 10/04/24 18:54 10/04/24 19:45 10/04/24 19:45 Temperature 98.9 F 98.0 F Pulse Rate Pulse Rate [Pulse Oximeter] 98 87 Pulse Rate [orthos tatic lying Right Pulse Oximeter] Pulse Rate [orthos tatic sitting Righ t Pulse Oximeter] Pulse Rate [orthos tatic standing Rig ht Pulse Oximeter] Respiratory Rate 22 16 16 Blood Pressure Blood Pressure [Le ft Arm] 118/76 114/67 Blood Pressure [or thostatic lying Le ft Arm] Blood Pressure [or thostatic sitting Left Arm] Blood Pressure [or thostatic standing Left Arm] Pulse Oximetry 93 91 91 Oxygen Delivery Me thod Room Air Room Air Room Air 10/04/24 21:31 10/04/24 23:00 10/04/24 23:00 Temperature Pulse Rate 96 97 Pulse Rate [Pulse Oximeter] Pulse Rate [orthos tatic lying Right Pulse Oximeter] Pulse Rate [orthos tatic sitting Righ t Pulse Oximeter] Pulse Rate [orthos tatic standing Rig ht Pulse Oximeter] Respiratory Rate Blood Pressure Blood Pressure [Le ft Arm] Blood Pressure [or thostatic lying Le ft Arm] Blood Pressure [or thostatic sitting Left Arm] Blood Pressure [or thostatic standing Left Arm] Pulse Oximetry 91 Oxygen Delivery Me thod Room Air 10/04/24 23:50 10/04/24 23:50 10/05/24 03:30 Temperature 98.3 F 98.3 F Pulse Rate Pulse Rate [Pulse Oximeter] 68 68 92 Pulse Rate [orthos tatic lying Right Pulse Oximeter] Pulse Rate [orthos tatic sitting Righ t Pulse Oximeter] Pulse Rate [orthos tatic standing Rig ht Pulse Oximeter] Respiratory Rate 18 18 18 Blood Pressure Blood Pressure [Le ft Arm] 129/81 101/64 Blood Pressure [or thostatic lying Le ft Arm] Blood Pressure [or thostatic sitting Left Arm] Blood Pressure [or thostatic standing Left Arm] Pulse Oximetry 91 91 Oxygen Delivery Me thod Room Air 10/05/24 07:00 10/05/24 07:00 10/05/24 07:00 Temperature Pulse Rate 101 H Pulse Rate [Pulse Oximeter] 95 Pulse Rate [orthos tatic lying Right Pulse Oximeter] Pulse Rate [orthos tatic sitting Righ t Pulse Oximeter] Pulse Rate [orthos tatic standing Rig ht Pulse Oximeter] Respiratory Rate 18 18 Blood Pressure Blood Pressure [Le ft Arm] Blood Pressure [or thostatic lying Le ft Arm] Blood Pressure [or thostatic sitting Left Arm] Blood Pressure [or thostatic standing Left Arm] Pulse Oximetry 95 Oxygen Delivery Me thod Room Air 10/05/24 07:00 10/05/24 11:00 10/05/24 11:00 Temperature 97.7 F 98.2 F Pulse Rate Pulse Rate [Pulse Oximeter] 95 95 99 Pulse Rate [orthos tatic lying Right Pulse Oximeter] Pulse Rate [orthos tatic sitting Righ t Pulse Oximeter] Pulse Rate [orthos tatic standing Rig ht Pulse Oximeter] Respiratory Rate 18 16 Blood Pressure Blood Pressure [Le ft Arm] 100/63 126/70 Blood Pressure [or thostatic lying Le ft Arm] Blood Pressure [or thostatic sitting Left Arm] Blood Pressure [or thostatic standing Left Arm] Pulse Oximetry 95 93 Oxygen Delivery Me thod Room Air Room Air 10/05/24 13:39 Temperature Pulse Rate Pulse Rate [Pulse Oximeter] Pulse Rate [orthos tatic lying Right Pulse Oximeter] 90 Pulse Rate [orthos tatic sitting Righ t Pulse Oximeter] 103 H Pulse Rate [orthos tatic standing Rig ht Pulse Oximeter] 101 H Respiratory Rate Blood Pressure Blood Pressure [Le ft Arm] Blood Pressure [or thostatic lying Le ft Arm] 131/93 H Blood Pressure [or thostatic sitting Left Arm] 126/101 H Blood Pressure [or thostatic standing Left Arm] 138/91 H Pulse Oximetry Oxygen Delivery Me thod Labs Labs: Laboratory Results - last 24 hr 10/05/24 10/05/24 05:42 11:05 WBC 9.28 RBC 6.21 H Hgb 18.9 H Hct 56.3 H MCV 91 MCH 30 MCHC 34 RDW Coeff of Scott 13.0 Plt Count 200 Neut % (Auto) 66.4 Lymph % (Auto) 18.2 L Simpson % (Auto) 12.0 H Eos % (Auto) 2.8 Baso % (Auto) 0.2 Neut # (Auto) 6.16 Lymph # (Auto) 1.70 Simpson # (Auto) 1.10 H Eos # (Auto) 0.26 Baso # (Auto) 0.02 Abs Immat Gran (auto) 0.04 Imm/Tot Granulo (auto) 0.4 Sodium 137 Potassium 4.6 Chloride 100 Carbon Dioxide 27 Anion Gap 10 BUN 32 H Creatinine 1.2 Estimated Creat Clear 56.58 Estimated GFR 62 Glucose 119 H Lactate 1.1 Calcium 9.6 Phosphorus 4.1 Magnesium 2.1 Triglycerides 102 Cholesterol 152 LDL Cholesterol, Calc 100 HDL Cholesterol 32 L Lab Acknowledgement Test Added
--- NOTE | 2024-10-05 19:36 | PC.NURSE ---
End of shift [id number]: VSS, Pt a/o x4. using standard walker to BR, Bed to chair. tolerating a therapeutic diet. BP slightly elevated, allowing permissive HTN. Blood sugar checks, no insulin needed. Q4 Neuro's. No deficits noted during neuro's besides unsteady on feet. Patient's IV in right AC SL and patent. NSR on tele.
[2024-10-05] MEDS: ATORVASTATIN CALCIUM 40 MG TABLET PO (21:08)
[2024-10-06 04:00] VITALS: BP 122/71; PULSE 92; PULSE 94; RESP 18; TEMP 36.4; O2SAT 94
[2024-10-06 07:00] VITALS: BP 134/89; PULSE 103; PULSE 99; RESP 18; TEMP 36.4; O2SAT 95
--- NOTE | 2024-10-06 07:06 | PC.NURSE ---
Pt pleasant, alert and oriented. VSS.?FWW and gait belt utilized, 1a. Denies dizziness. Bed alarm utilized. Pain rated 2-3/10, prn Tylenol given. Pt in bed, appears to be resting, call light within reach.?
[2024-10-06 08:00] VITALS: PULSE 99
[2024-10-06] MEDS: ASPIRIN 81 MG TAB.CHEW PO (09:22)
[2024-10-06] MEDS: CLOPIDOGREL 75 MG TABLET PO (09:22)
[2024-10-06] MEDS: ACETAMINOPHEN 325 MG TABLET 650 MG PO (09:56)
--- NOTE | 2024-10-06 14:19 | PC.NURSE ---
Discharge: patient's VSS, IV removed intact, discharge instructions given and patient and family verbalized understanding. Belongings sheet signed. Zio patch applied and patient educated on its use.
--- NOTE | 2024-10-06 15:28 | P.DS_ITS ---
DS: Providers Provider Date Seen: 10/06/24 Date of admission: 10/05/24 13:55 Primary care physician: Miguel Dowling MD Admitting Clinician: Robi Kwok MD Consults: 10/04/24 21:11 Consult to Nutrition [CONS] Routine Comment: Reason for consult:: Miscellaneous Comment: stroke Consult to Occupational Therapy [CONS] Routine Comment: Reason(s) for OT Consult:: Evaluate and Treat Any Restrictions?:: No Restrictions Consult to Physical Therapy [CONS] Routine Comment: Reason(s) for PT Consult:: Evaluate and Treat Any Restrictions?:: No Restrictions Attending Physician on discharge: Marie Wu MD [facility] Hospitalist Date of Discharge: 10/06/24 DS: Diagnosis Discharge Diagnosis (1) Ischemic stroke: Status: Acute Problem details: -sudden onset of vertigo on 09/25/2024, persistent since, assessed for the same on 09/26/24 in the [facility] ED, 09/30/24 in the clinic, 10/03/24 in the [facility] ED, on 10/04/24 in the clinic, and today in the [facility] ED. -CT scan of head without contrast on 09/26/24 and 10/03/24 demonstrated, Normal brain parenchymal morphology. Stable small focal low-attenuation change of the right thalamus consistent with an old lacunar infarct. -MRI of brain 10/04/24 demonstrated, 1. 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 2. Remote punctate microhemorrhage in the right thalamus. 3. Mild parenchymal volume loss and chronic small vessel ischemic changes. -Dr. Dennison, ED physician, reviewed with neurology: stop ASA 325 qd; start ASA 81 mg qd; start clopidogrel 75 mg qd; monitor overnight; telemetry; ECHO; lipids; hemoglobin (has chronic erythrocytosis); HgA1C; hold anti-HTN meds to allow for permissive HTN with goal of SBP <180 mmHg; PT and OT consultation; confer with neurology on 10/05/24 10/05/24 worsening symptoms until MRI likely means expansion. blood pressure support (fluids, hold lisinopril) is very important -echo, lipids, A1C all reviewed -ready for discharge on 10/06. Follow-up arranged with Neurology, PCP, physical therapy. Discharge was Zio patch. Discharged on a baby aspirin, Plavix 75 mg and Lipitor 40 mg. (2) Hypertension: Status: Acute Problem details: -3 med regimen (lisinopril, hctz, amlodipine) -holding all three Protocol given on how to monitor blood pressure and goal range,% in that range, and how to add and subtract medicines until coordinated with PCP. (3) History of atrial fibrillation: Status: Acute Problem details: -currently in sinus. no OAC. 10/06 discharged on Zio patch (4) Diabetes: Status: Acute Problem details: -A1C 6.5 -no meds -BMI 32 and now hx of CVA - role for a GLP-1 is indicated - follows with Dr. Dowling (5) Polycythemia: Status: Acute Problem details: -follows with PCP, oncology, and [facility] (6) REBECCA (obstructive sleep apnea): Status: Acute Problem details: -needs updated outpatient sleep study DS: Summary Hospital Course Hospital Course: FINAL DIAGNOSIS/FOLLOW UP ISSUES: -Acute ischemic stroke likely with expansion. Symptomatic over 2 weeks with imbalance and dizziness and diplopia. Detailed follow-up printed for patient. And included in discharge instructions. BRIEF HOSPITAL COURSE: Patient was admitted for 2 days. Synopsis of acute inpatient issues are outlined above. Chronic medical conditions with notable findings outlined above. Mr. Crump's stroke symptoms were predominantly left-sided weakness, left lean with walking, diplopia and dizziness. We appreciated the input from tele Stroke Service. All of the recommendations were consolidated for the patient and printed. Those include: o?? Aspirin and Plavix every day for a month, then aspirin only o?? Blood pressure management (take once a day, at different times, write it down) o?? Goal is 120-140/70-90 ?? 80% of readings should be in this range o?? No BP Meds until 10/09 o?? On 10/10 if your BP is >150 start your HCTZ back at 25mg daily o?? On 10/11 if your BP is >150 start your lisinopril back at 20mg (not 40mg) o?? On 10/12 if your BP is >150 increase the lisinopril back at 40mg o?? I want your BP to be at least 120 so if you start to find it drifting (more than 20% of the time to less than 120), cut the lisinopril to 20, then hold it completely, then hold the HCTZ ? essentially the reverse of how we added. o?? BP is supposed to go up and down so don?t let one number confuse you. If one number is really out of whack, then you can retake it in 1-2 hours. Otherwise stick to once a day and look at trends over 1-2 weeks than hour to hour trends. o?? Dr. Dowling will take over and until you see him and show him your blood pressure log ? do not restart the amlodipine. o?? Come to the ED if your blood pressure is >220/110 or less than 90/50. o?? Sleep Study and no whining about the mask until you try it. And even then suck it up buttercup. o?? Weight loss and blood sugar control (I highly suggest a GLP1 shot (Ozempic for example) each week) o?? If we find AFIB ? treat and take a blood thinner. That is why you are wearing a patch to look for AFIB in the next 2 weeks. o?? Take Lipitor (a statin, a cholesterol medication) for not just the lowering effect but for the anti-inflammatory effect on your brain. o?? Go see a stroke specialist and Dr. Dowling in follow-up o?? 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 For 1 month combined this with 75 mg clopidogrel. 40 mg Lipitor nightly. Specific instructions to the patient and follow-up are outlined below. REVIEW OF SYSTEMS No new chest pain or dyspnea Pain controlled No voiding difficulties Tolerating diet challenge PHYSICAL EXAM: CONSTITUTIONAL: Conversive, good historian. A/O. Knows setting and context. GENERAL: Well-developed and above ideal body weight, in no respiratory distress. VITAL SIGNS: see record. HEENT: Sclerae are anicteric. No petechiae. CARDIAC: rhythm is regular. There is no S3 or rub. No harsh murmurs. Extremities show trace edema with symmetrical pulses. PULM: good air entry with no wheeze. NEURO: Speech is fluent. A brief neurologic exam is negative. I did observe him using the walker and working with PT. There is a slight tilt to the back into the left when standing still and walking. He still has some mild diplopia this morning. SKIN: No rashes, petechiae, concerning changes PSYCHIATRIC: Euthymic. DISPOSITION: Home with family Outpatient follow-up and therapy Time spent on discharge 37 minutes. Status at Discharge Functional status at discharge: uses cane/walker Overall status at discharge: patient is progressing back to baseline Time Spent with Patient Time attestation: Total time spent providing and/or coordinating discharge services: Time spent: Greater than 30 minutes Exam Const: Vital Signs, click to edit/add: Vital Signs - 24 hr 10/05/24 19:35 10/05/24 19:35 10/05/24 23:00 Temperature 98.3 F Pulse Rate 92 Pulse Rate [Pulse Oximeter] 96 96 Respiratory Rate 18 Blood Pressure [Le ft Arm] 127/81 Pulse Oximetry 93 Oxygen Delivery Me thod Room Air 10/05/24 23:00 10/05/24 23:00 10/05/24 23:00 Temperature Pulse Rate Pulse Rate [Pulse Oximeter] 96 96 Respiratory Rate 18 Blood Pressure [Le ft Arm] Pulse Oximetry 96 Oxygen Delivery Me thod Room Air 10/05/24 23:30 10/06/24 04:00 10/06/24 04:00 Temperature 98.1 F 97.6 F Pulse Rate Pulse Rate [Pulse Oximeter] 100 94 92 Respiratory Rate 16 18 Blood Pressure [Le ft Arm] 122/78 122/71 Pulse Oximetry 96 94 Oxygen Delivery Me thod Room Air Room Air 10/06/24 07:00 10/06/24 07:00 10/06/24 07:00 Temperature 97.6 F Pulse Rate Pulse Rate [Pulse Oximeter] 99 99 Respiratory Rate 18 18 18 Blood Pressure [Le ft Arm] 134/89 Pulse Oximetry 95 95 Oxygen Delivery Me thod Room Air Room Air 10/06/24 07:00 10/06/24 08:00 Temperature Pulse Rate 103 H Pulse Rate [Pulse Oximeter] 99 Respiratory Rate Blood Pressure [Le ft Arm] Pulse Oximetry Oxygen Delivery Me thod DS: Data Data Completed and Pending Labs on day of discharge: Preliminary micro results at discharge 10/04/24 13:33 Blood Culture - Preliminary Blood NO GROWTH AFTER 48 HOURS 10/04/24 13:39 Blood Culture - Preliminary Blood NO GROWTH AFTER 48 HOURS Discharge Plan Discharge Disposition: Home w/ Parent or Adult Date of Admission: 10/05/24 13:55 Attending Provider on Discharge: Marie Wu Primary Care Provider: Miguel Dowling Condition: Stable Anticipated Discharge Date/Time: 10/06/24 11:50 Discharge Medications: New atorvastatin 40 mg Tablet 40 mg PO HS Qty: 30 0RF clopidogrel 75 mg Tablet 75 mg PO DAILY Qty: 30 0RF aspirin [Children's Aspirin] 81 mg Tablet,Chewable 81 mg PO DAILY Qty: 90 0RF Continued naproxen sodium [Aleve] 220 mg capsule 440 mg PO BID PRN acetaminophen [Tylenol] 325 mg tablet 650 mg PO Q6H PRN Eylea 2 mg/0.05 mL solution 2 mg intravitreal Q60D meclizine 25 mg tablet 25 mg PO QID PRN Held hydrochlorothiazide 25 mg tablet 25 mg PO QAM Qty: 30 1RF Hold Instructions: Resume on 10/10/24. Use the instructions given on when and how to use this medication. lisinopril 40 mg tablet 40 mg PO QDAY Qty: 90 3RF Hold Instructions: Resume on 10/11/24. Use the instructions given on when and how to use this medication. amlodipine 10 mg tablet 10 mg PO DAILY Qty: 90 3RF Hold Instructions: Resume on 10/14/24. Use the instructions given on when and how to use this medication. Discontinued aspirin 325 mg tablet 325 mg PO DAILY dimenhydrinate [Dramamine] 50 mg tablet 50 mg PO Q6H PRN Discharge Orders: Discharge Order (Routine); Ordered 10/06/24 Ordered By: Marie Wu Patient Education: Aspirin (By mouth), Atorvastatin (By mouth), Clopidogrel (By mouth), Ischemic Stroke (GEN) Additional Instructions: How do I heal from this Stroke? o?? Time o?? Optimal Health conditions (good sleep, good nutrition, good management of your medical issues) o?? Therapy (PT and OT at the clinic in [place]) o?? Listen to your family in regard to stairs, moving too fast, even when it annoys you. Your biggest risk is falling and breaking a hip or getting a head laceration/brain bleed in the next month. How do I prevent the next one? o?? Aspirin and Plavix every day for a month, then aspirin only o?? Blood pressure management (take once a day, at different times, write it down) o?? Goal is 120-140/70-90 ?? 80% of readings should be in this range o?? No BP Meds until 10/09 o?? On 10/10 if your BP is >150 start your HCTZ back at 25mg daily o?? On 10/11 if your BP is >150 start your lisinopril back at 20mg (not 40mg) o?? On 10/12 if your BP is >150 increase the lisinopril back at 40mg o?? I want your BP to be at least 120 so if you start to find it drifting (more than 20% of the time to less than 120), cut the lisinopril to 20, then hold it completely, then hold the HCTZ ? essentially the reverse of how we added. o?? BP is supposed to go up and down so don?t let one number confuse you. If one number is really out of whack, then you can retake it in 1-2 hours. Otherwise stick to once a day and look at trends over 1-2 weeks than hour to hour trends. o?? Dr. Dowling will take over and until you see him and show him your blood pressure log ? do not restart the amlodipine. o?? Come to the ED if your blood pressure is >220/110 or less than 90/50. o?? Sleep Study and no whining about the mask until you try it. And even then suck it up buttercup. o?? Weight loss and blood sugar control (I highly suggest a GLP1 shot (Ozempic for example) each week) o?? If we find AFIB ? treat and take a blood thinner. That is why you are wearing a patch to look for AFIB in the next 2 weeks. o?? Take Lipitor (a statin, a cholesterol medication) for not just the lowering effect but for the anti-inflammatory effect on your brain. o?? Go see a stroke specialist and Dr. Dowling in follow-up o?? Go back and see a vamper for the PCV (Polycythemia Vera) treatment options. Activity Level: No strenuous activity, Up with assist and Use Walker Discharge Diet: Heart Healthy (2 gm sodium, low fat) and Other Follow Up Appointments: [facility] [Provider Group] Referral Note: - Follow up with [facility] after discharge. Please call [phone] to schedule an appointment. You were seen by tele stroke service (Dr. Almanza, specifically). [facility] [Provider Group] Referral Note: referral has been filled out Miguel Dowling MD [Primary Care Provider, Family Practice] - 10/10/24 4:00 pm Referral Note: [facility] for hospital follow-up. [facility] Inst[facility]
== END 2024-10-06 12:50 | disposition home or self-care (01) | DRG 65 ==
LOC: ED 18:15 → MEDSURG 18:53
PROVIDERS: Family Medicine; Admitting Provider Internal Medicine; Emergency Provider Internal Medicine; PCP Family Medicine; Visit Provider Internal Medicine
DX: I63.533 Cerebral infarction due to unspecified occlusion or stenosis of bilateral posterior cerebral arteries (principal); C19 Malignant neoplasm of rectosigmoid junction; S22.32XA Fracture of one rib, left side, initial encounter for closed fracture; G83.14 Monoplegia of lower limb affecting left nondominant side; H53.2 Diplopia; R42 Dizziness and giddiness; I10 Essential (primary) hypertension; E11.9 Type 2 diabetes mellitus without complications; I48.91 Unspecified atrial fibrillation; G47.33 Obstructive sleep apnea (adult) (pediatric); Z79.82 Long term (current) use of aspirin; D75.1 Secondary polycythemia; N40.0 Benign prostatic hyperplasia without lower urinary tract symptoms; D49.0 Neoplasm of unspecified behavior of digestive system; Z77.098 Contact with and (suspected) exposure to other hazardous, chiefly nonmedicinal, chemicals; Z87.891 Personal history of nicotine dependence
CPT/HCPCS: 36415; 70496; 70498; 70551; 71045; 71275; 74177; 80048; 80053; 80061; 82962; 83605; 83735; 84100; 84484; 85025; 85379; 87040; 93005; 93246; 93306; 97112; 97116; 97162; 97166; 97535; 99284; 99285; A9270; G0378; J2543; J7030; Q9967

== ENCOUNTER 2024-10-13 19:09 | Emergency (ER) | payer OTHER, SELFPAY ==
--- OUTSIDE RECORDS SUMMARY | 2022-01-11 09:30 | XMS_ITS | Continuity of Care Document ---
Author Name [facility] Organization [facility] Care Team Providers Care Bridge Manager Name Role Phone [facility] Unavailable Unavailable Problems Combined list of problems from Department of [facility] and [facility] facilities. It does not include entries that were removed or entered in error. Problem Status Onset Date Problem Type Date of Resolution Comments Source Basal cell carcinoma of skin Active Condition Mar 17, 2017 Entered By: ALEJANDRO REN Comment: 03.15.2017 R Nose. [facility] Benign essential hypertension (SNOMED CT 0600003) Active Condition [facility] Elevated PSA Active Condition [facility] Erythrocytosis Active Condition [facility] Gout Active Condition [facility] H/O: vasectomy Active Condition [facility] Health Maintenance (ICD-9-CM V65.9) Active Condition [facility] History of tonsillectomy Active Condition [facility] Hyperlipidemia Active Condition [facility] Obstructive sleep apnea of adult Active Condition [facility] Medications Combined list of outpatient medications from [facility] and [facility] facilities.Medications provided include 1) outpatient medications from the last 15 months, and 2) patient-reported medications. Medication Details Route Status Patient Instructions Prescription Expires Prescription Number Last Dispense Date Ordering Provider Order Date Order Qty Source ALLOPURINOL TAB TAKE BY MOUTH ORAL ACTIVE LUISAWild 2016 [facility] AMLODIPINE BESYLATE 10MG TAB TAKE ONE-HALF TABLET BY MOUTH ORAL ACTIVE LUISAWild 2015 [facility] ASPIRIN 325MG TAB TAKE ONE TABLET BY MOUTH EVERY DAY ORAL ACTIVE DANIEL JOE 2009 [facility] LISINOPRIL 40MG TAB TAKE ONE TABLET BY MOUTH EVERY DAY ORAL ACTIVE LUISAL MAME E 2015 [facility] MULTIVITAMI NS CAP/TAB TAKE ONE TABLET BY MOUTH EVERY DAY ORAL ACTIVE LUISAWild 2015 [facility] NAPROXEN 250MG TAB TAKE ONE-HALF TABLET BY MOUTH PRN ORAL ACTIVE DANIEL JOE 2009 [facility] Allergies, Adverse Reactions, Alerts Combined list of allergies from [facility]. It does not include entries that were removed or entered in error. Substance Category Reaction Severity Reaction type Status Date Reported Comments Source CEFADROXIL Propensity to adverse reactions to drug (finding) Bleeding active 2 [facility] HCTZ HYDROCHLOROTH IAZIDE Propensity to adverse reactions to drug (finding) Gout active 6 [facility] METOPROLOL Propensity to adverse reactions to drug (finding) Fatigue active 8 [facility] Immunizations Combined list of available immunizations from the Department of [facility] and [facility] facilities. Immunization Series Date Given Administered By Site Reaction Lot Number CVX Code Drug Registered Safety Engineer Status Comments Source COVID-19 (Targovax), MRNA, LNP-S, PF, 30 MCG/0.3 ML DOSE 2 2020 208 complet ed PFR; [id number]; 1 [facility] COVID-19 (Targovax), MRNA, LNP-S, PF, 30 MCG/0.3 ML DOSE 1 2020 208 complet ed PFR; [id number]; 1 [facility] PNEUMOCOCCAL POLYSACCHARID E PPV23 2017 33 complet ed [employer] and [employer],[id number] [id number] 20 [facility] TDAP 2017 115 complet ed sanofi pastuer [id number], [facility] PNEUMOCOCCAL CONJUGATE PCV 13 2015 133 complet ed [employer],M79 321,12/08 [facility] ZOSTER LIVE 2015 121 complet ed [employer],[id number] [id number] 16 [facility] Social History Combined list of available smoking, tobacco, and other social history from Department of [facility] and [facility] facilities. Social History Type Response Date Comment Sourc e Tobacco smoking status [facility]-TOBACCO FORMER USER 01/11/2022 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
--- OUTSIDE RECORDS SUMMARY | 2022-01-11 09:30 | XMS_ITS | Continuity of Care Document ---
Author Name [facility] Organization [facility] Care Team Providers Care Male Infertility Specialist Name Role Phone [facility] Unavailable Unavailable Problems Combined list of problems from Department of [facility] and [facility] facilities. It does not include entries that were removed or entered in error. Problem Status Onset Date Problem Type Date of Resolution Comments Source Basal cell carcinoma of skin Active Condition Mar 17, 2017 Entered By: ALEJANDRO REN Comment: 03.15.2017 R Nose. [facility] Benign essential hypertension (SNOMED CT [id number]) Active Condition [facility] Elevated PSA Active Condition [facility] Erythrocytosis Active Condition [facility] Gout Active Condition [facility] H/O: vasectomy Active Condition [facility] Health Maintenance (ICD-9-CM V65.9) Active Condition [facility] History of tonsillectomy Active Condition [facility] Hyperlipidemia Active Condition [facility] Obstructive sleep apnea of adult Active Condition [facility] Medications Combined list of outpatient medications from [facility] and [facility] facilities.Medications provided include 1) outpatient medications from the last 15 months, and 2) patient-reported medications. Medication Details Route Status Patient Instructions Prescription Expires Prescription Number Last Dispense Date Ordering Provider Order Date Order Qty Source ALLOPURINOL TAB TAKE BY MOUTH ORAL ACTIVE LUISAWild 2016 [facility] AMLODIPINE BESYLATE 10MG TAB TAKE ONE-HALF TABLET BY MOUTH ORAL ACTIVE LUISAWild 2015 [facility] ASPIRIN 325MG TAB TAKE ONE TABLET BY MOUTH EVERY DAY ORAL ACTIVE DANIEL JOE 2009 [facility] LISINOPRIL 40MG TAB TAKE ONE TABLET BY MOUTH EVERY DAY ORAL ACTIVE LUISAL MAME E 2015 [facility] MULTIVITAMI NS CAP/TAB TAKE ONE TABLET BY MOUTH EVERY DAY ORAL ACTIVE LUISAWild 2015 [facility] NAPROXEN 250MG TAB TAKE ONE-HALF TABLET BY MOUTH PRN ORAL ACTIVE DANIEL JOE 2009 [facility] Allergies, Adverse Reactions, Alerts Combined list of allergies from Department of [facility] and [facility]. It does not include entries that were removed or entered in error. Substance Category Reaction Severity Reaction type Status Date Reported Comments Source CEFADROXIL Propensity to adverse reactions to drug (finding) Bleeding active 2 [facility] HCTZ HYDROCHLOROTH IAZIDE Propensity to adverse reactions to drug (finding) Gout active 6 [facility] METOPROLOL Propensity to adverse reactions to drug (finding) Fatigue active 8 [facility] Immunizations Combined list of available immunizations from the Department of [facility] and [facility]. Immunization Series Date Given Administered By Site Reaction Lot Number CVX Code Drug Marriage Counselor Status Comments Source COVID-19 (Sumavision), MRNA, LNP-S, PF, 30 MCG/0.3 ML DOSE 2 2020 208 complet ed PFR; [id number]; 1 [facility] COVID-19 (Sumavision), MRNA, LNP-S, PF, 30 MCG/0.3 ML DOSE 1 2020 208 complet ed PFR; [id number]; 1 [facility] PNEUMOCOCCAL POLYSACCHARID E PPV23 2017 33 complet ed [employer],[id number] [id number] 20 [facility] TDAP 2017 115 complet ed sanofi pastuer [id number], [facility] PNEUMOCOCCAL CONJUGATE PCV 13 2015 133 complet ed [employer],M79 321,12/08 [facility] ZOSTER LIVE 2015 121 complet ed [employer],[id number] [id number] 16 [facility] Social History Combined list of available smoking, tobacco, and other social history from Department of [facility] and [facility]. 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
--- OUTSIDE RECORDS SUMMARY | 2024-09-09 14:30 | XMS_ITS | Encounter Summary ---
Author Organization [email or web address] Address [address], [place] [address] Care Team Providers Care Glass Beveller Name Role Phone Kristine Brown MD Primary Care Provider [phone] Encounter Details Date Type Department Care Team (Latest Contact Info) Description 09/09/2024 2:30 PM CDT Office Visit Ophthalmology at [facility] 401 [facility] 401 [facility]. 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) Social History Tobacco Use Types Packs/Day Years Used Date Smoking Tobacco: Former Cigarettes 1 9 0 04/24/1962 - 04/24/1971 Smokeless Tobacco: Never Alcohol Use Standard Drinks/Week Comments Yes 4.2 (1 standard drink = 0.6 oz p ure alcohol) occ Sex and Gender Information Value Date Recorded Sex Assigned at Not on file Legal Sex Male 4:58 AM CDT Gender Identity Not on file Sexual Orientation Not on file Occupation Industry Job Start Date Job End Date Self Employed Not on file Not on file Not on file documented as of this encounter Patient Instructions * Patient Instructions* León Elise COT - 09/09/2024 2:30 PM CDT You may experience some mild irritation, tearing, and feeling of something in the eye immediately after and the evening following an injection. If this occurs, you may use snps-dpn-zeehsbn tear dropsor ointment from a pharmacy to provide some relief of symptoms. However, you SHOULD NOT experience symptoms of SIGNIFICANT PAIN, HEADACHE, LIGHT SENSITIVITY, or SUDDEN CHANGES IN VISION following an injection, especially occurring a day or more following the procedure. If any of these occur, call the CARELINE immediately at and ask to speak with the doctor production counter. These can be signs of a potentially blinding infection, which would require emergent treatment. Dr. Garcia would like to see you back in 4-5 Weeks for INJECTION appointment with OCT MACULA scan and Eylea 2 mg injection right eye. However, if you notice that you have new or worsening symptoms prior to that time, you should call immediately for an urgent appointment. For appointments (Option #5) After hours CareLine documented in this encounter Progress Notes * Iraj Garcia MD - 09/09/2024 2:30 PM CDT Last visit 08/05/2024 (Suzi) Armen Crump is a 79 y.o. male here for her 5 week follow up for wet AMD OD. CC/HPI: Patient fared well post last injection. He feels vision has noticeably increased since lastvisit. Past Injections: Eylea 2mg OD x 1, last inject 08/05/2024 (5 weeks) Eylea HD OD x 1, last inject 07/01/24 (10 weeks) Eylea 2mg OS x 1, last inject 07/01/2024 (10 weeks) H/O Eylea 2mg OS (with Dr. Thomas at [facility], Possibly in 10/2023) Eye Med/Surg History: pcIOL OU (11/2023, [facility]) Relevant Medical History: Hypertension Glaucoma Meds: None Other Eye Meds: ATs PRN OU Review of Systems: Pertinent ROS noted in HPI No results found for: HGBA1C BP Readings from Last 3 Encounters: 07/26/17 (!) 143/87 10/03/17 122/71 11/07/16 139/85 OCT: Interpretation: (09/09/2024) RIGHT: stable RPE changes, no fluid @ 5w; LEFT: stable scar Performed by GUSTAVO Michel for dx Wet AMD OD OCT: Interpretation: (08/05/2024) RIGHT: Interval decrease in PED/fluid/exudation on Eylea at 5 weeks; LEFT: Atrophic scar OCT: Interpretation: (07/01/2024) RIGHT: larger PED+SHRM+SRF; LEFT: stable RPE scar, atrophy, no fluid OCT: Interpretation: (02/19/2024) RIGHT: sm PED, mild ERM, early atrophy, RPE changes, drusen; LEFT: atrophy/GA, central scar, no fluid Assessment and Plan: Wet AMD OD 07/01/2024 Clear conversion to wet AMD in better seeing eye on OCT with developing symptoms. Recommend immediate anti-VEGF treatment to prevent additional vision loss, given monocular status. 08/05/2024 repeat injection today with close follow-up [address] Garcia 09/09/2024 Continue q5w tx. Dry. Wet AMD OS 02/19/2024 guarded prognosis 2/2 macular scarring. No ongoing exudation at this time. 07/01/2024 stable scar with guarded prognosis. Discussed PRN vs continue tx. Pt opting to maintain q4 mo treatment. 08/05/2024 observe today without treatment 09/09/2024 Continue q Glc Suspect OU 02/19/2024 IOP okay, no testing on file. Pt has upcoming appt with plans for HVF/OCT RNFL, per Dr. Aguirre. ERM OD 02/19/2024 discussed can cause metamorphopsia, but unlikely major contributor in the context of other macular changes. Last Dilation: 07/01/2024 PLAN: Eylea 2 mg today Tx OS q4m AREDS2 Amsler Grid checks Monocular precautions RTC 4-5 weeks: OCT, Eylea 2 mg OD Risks, benefits, alternatives to the above stated management were discussed at length with the patient. Patient instructed to call immediately with any concerns or new/worsening symptoms to arrange for urgent appointment. Eylea Injection Procedure Note Risks, benefits, and alternatives to anti-VEGF injections have been discussed at length with the patient. Such risks include, but are not limited to, bleeding, cataract, retinal detachment or tear, intraocular pressure elevation, vision loss, or loss of eye secondary to a serious intraocular infection. Also discussed was the theoretical increased risk of thromboembolic event associated with anti-VEGF therapy. Understanding the risks, the patient elected to proceed with Eylea injection to the RIGHT eye for diagnosis of wet/exudative macular degeneration. Multiple drops of topical anesthetic were applied tothe ocular surface followed by 2% lidocaine injected subconjunctivally over the injection site. After appropriate time had elapsed, a lid speculum was then inserted. The injection site was marked 3.5-4.0 mm posterior to the limbus in the inferotemporal quadrant. 5% betadine was then applied over the injection site, the adjacent ocular surface, and nearby lid margin/lashes. 2 mg in 0.05 cc of Eylea was then injected intravitreally at the site through the pars plana via a 32 gauge needle. Once the needle was withdrawn, betadine was once again applied by cotton tip applicator to the injection site. The speculum was removed and the eye was rinsed thoroughly with BSS. Following the procedure, count fingers vision was confirmed while occluding the opposite eye. The patient tolerated the procedure well and there were no complications. Amount wasted: less than 1 unit Prepped by GUSTAVO Herrera Dr., MD 09/09/2024 2:16 PM documented in this encounter Plan of Treatment Upcoming Encounters Date Type Department Care Team (Late st Contact Info) Description 10/14/2024 3:15 PM CDT Appointment Ophthalmology at [address] 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 3:08 PM. Confirmed correct patient, procedure, site, and patient consented. 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)- Primary documented in this encounter Administered Medications Inactive Administered Medications - up to 3 most recent administrations Medication Order MAR Action Action Date Dose Rate Site aflibercept (EYLEA) injection 2 mg 2 mg, Intravitreal, Once, as needed, Starting on 09/09/24 at 1636, For 1 doseIndications: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
--- OUTSIDE RECORDS SUMMARY | 2024-10-09 14:00 | XMS_ITS | Encounter Summary ---
Author Organization [facility] Address [address] [address] Care Team Providers Care Pharmacy Technician Name Role Phone Kristine Brown MD Primary Care Provider [phone] Reason for Visit * Reason Comments Problem Focused Exam UL crown came off y esterday chewing popcorn. Previous rootcanal Tooth in crown., pt had recent stroke last Monday. Encounter Details Date Type Department Care Team (Late st Contact Info) Description 10/09/2024 2:00 PM CDT [facility] [address] [phone] Brenna Reyes, DDS [address] [place] [address] Problem Focused Exam (UL crown came off yesterday chewing popcorn. Previous rootcanal Tooth in crown., pt had recent stroke last Monday.) Social History Tobacco Use Types Packs/Day Years [...] Progress Notes * Brenna Reyes DDS - 10/09/2024 2:00 PM CDT DENTAL PROBLEM FOCUS VISIT NOTE Subjective Khanh is a 79 y.o. male who presents for Problem Focused Exam (UL crown came off yesterday chewing popcorn. Previous rootcanal Tooth in crown., pt had recent stroke last Monday.) Chief Complaint: crown came off tooth yesterday. No symptoms no pain food getting packed in there Pain Assessment: Current level of pain: 0/10 Worst pain level associated with this problem: 0/10 Location of pain: Maxillary left Nature of pain: N/A Eliciting factors: N/A Duration: N/A Alleviating factors: Not taking anything Swelling: None Objective/Assessment The following information was reviewed with the patient: Medical history, Dental history, and Radiographs. Radiographic Interpretation: #12 Previous RCT and fractured crown Diagnosis: Horizontal fracture of middle third of root of tooth (primary encounter diagnosis) Retained tooth root Loss of retention of dental crown Prognosis: #12 Hopeless Fractured tooth and crown of # 12 Previous RCT recommended extraction, PT has lot of health issues at this point and doesn't want the extraction recommended to do a sed fill so that food doesn't get packed Plan I discussed the Dental findings, Prognosis, Treatment options, Risks and complications associated with procedure, and Billing/Treatment estimate with the patient. All questions answered and they expressed understanding. Procedural Pause: Patient identity verified: Yes Treatment plan/site verified with the patient: Yes Instruments/equipment verified: Yes Any medication/allergy contraindications: No Completed Procedures: Anesthesia: None used , procedure was minimally invasive. . Sedative Amish, #12: Prepared with minimal removal of tooth structure Isolated area with high speed suction, cotton rolls, and a cheek guard Applied Used dentin conditioner Preparation filled with glass ionomer material : Shade: A2 Post-Op Instructions: Patient was advised of normal post-operative instructions, potential for post-operative sensitivity, and the need to exercise care because of the risk of fracture Care was assisted by Alka Araya Planned Visit: recall No Medications ordered this encounter Brenna Reyes DDS 10/09/2024, 2:24 PM CC: Nazia documented in this encounter Plan of Treatment Upcoming Encounters Date Type Department Care Team (Late st Contact Info) Description 10/14/2024 3:15 PM CDT Appointment [facility] [address] [facility] [place] [address] Iraj Garcia MD [address] [place], [place] [id number] 10/21/2024 9:00 AM CDT Appointment Ophthalmology at [facility] [address] [place] [phone] 10/21/2024 9:30 AM CDT Appointment Ophthalmology at [facility] [address] [place] [address] [place] [address] [place], [place] [id number] documented as of this encounter Procedures Procedure Name Priority Date/Time Associated Diagnosis Comments FILM-PERIAPICAL FIRST Routine 10/09/2024 2:00 PM CDT Horizontal fracture of middle third of root of tooth Retained tooth root Loss of retention of dental crown 12 MODBL SEDATIVE FILLING Routine 10/09/2024 2:00 PM CDT Horizontal fracture of middle third of root of tooth Retained tooth root Loss of retention of dental crown LIMITED ORAL EVALUATION Routine 10/09/2024 2:00 P M CDT Horizontal fracture of middle third of root of tooth Retained tooth root Loss of retention of dental crown documented in this encounter Visit Diagnoses Diagnosis Horizontal fracture of middle third of root of tooth- Primary Retained tooth root Retained dental root Loss of retention of dental crown documented in this encounter Care Teams Pharmacy Technician Relationship Specialty [place] [address] [place], [place] [id number] PCP - General Family Practice 03/25/13 documented as of this encounter
--- OUTSIDE RECORDS SUMMARY | 2024-10-13 19:12 | XMS_ITS | Clinical Summary ---
Author Organization [facility] Address [address] [place] [address] Care Team Providers Care Plant Physiologist Name Role Phone Miguel Dowling MD Primary Care Provider [phone] Allergies No known active allergies Medications LISINOPRIL [...] on file Legal Sex Male 3:20 AM CARD TABLE ATTENDANT Gender Identity Not on file Sexual Orientation Not on file Last Filed Vital Signs Vital Sign Reading Time Taken Comments Blood Pressure 91/72 03/29/2022 12:11 PM CARD TABLE ATTENDANT Pulse 111 03/29/2022 12:21 PM CARD TABLE ATTENDANT Temperature 36.6 C (97.9 F) 07/30/2011 6:27 PM CDT Respiratory Rate 25 03/29/2022 12:21 PM CARD TABLE ATTENDANT Oxygen Saturation 92% 03/29/2022 12:16 PM CARD TABLE ATTENDANT Inhaled Oxygen Concentration - - Weight 108.9 kg (240 lb) 03/29/2022 11:22 AM CARD TABLE ATTENDANT Height 180.3 cm (5' 11) 03/29/2022 11:22 AM CARD TABLE ATTENDANT Body Mass Index 33.47 03/29/2022 11:22 AM CARD TABLE ATTENDANT Plan of Treatment Health Maintenance Due Date [...] Diagnosis Comments FLEXIBLE SIGMOIDOSCOPY Routine 11:35 AM CARD TABLE ATTENDANT from Last 3 Months or Most Recently Relevant to Health Maintenance Results * FLEXIBLE SIGMOIDOSCOPY (03/29/2022 11:35 AM CARD TABLE ATTENDANT) [facility] Flex Sig [place] [address] [address] [place] [address] Patient Name: Armen Crump Procedure Date: 03/29/2022 [...] on . Procedure Code(s): --- Professional --- 26394, Sigmoidoscopy, flexible; with biopsy, single or multiple Diagnosis Code(s): --- Professional --- C20, Malignant neoplasm of rectum K62.1, Rectal polyp Z01.818, Encounter for other preprocedural examination CPT copyright 2020 [employer]. All rights reserved. The codes documented in this report are preliminary and upon teacher advisor review may be revised to meet current [...] AM RADIOLOGY RESULTS 03/29/2022 11:3 5 AM CARD TABLE ATTENDANT us Camila Brar MD PROCEDURES Final Re sult RADIOLOGY RESULTS from Last 3 Months or Most Recently Relevant to Health Maintenance Insurance [employer] Care Teams Plant Physiologist Relationship Specialty Start Date End Date Miguel Dowling MD [facility] [address] [place] [address] PCP - General Family Medicine 03/07/22
--- OUTSIDE RECORDS SUMMARY | 2024-10-13 19:12 | XMS_ITS | Encounter Summary ---
Author Organization [facility] Address [address] [place] [address] Care Team Providers Care Utility Mechanic Name Role Phone Kristine Brown MD Primary Care Provider Encounter Details Date Type Department Care Team (Late st Contact Info) Description 10/07/2024 Telephone Ophthalmology at [place] [id number] [place] [phone] [place]quin Meyer [place] [id number] [place] [address] Social History Tobacco Use Types Packs/Day [...] as of this encounter Nursing Notes * Yoselin Wu - 10/07/2024 8:14 AM CDT Patient called to reschedule appt from 10/11. I tried to reschedule just as is from 10/11/24. Patient had stroke on Monday10/11/24 and wants advice about what is worth while for him to come into [facility] appointment for eye and wants to speak with provider to discuss. documented in this encounter Plan of Treatment Upcoming Encounters Date Type Department Care Team (Late st Contact Info) Description 10/14/2024 3:15 PM CDT Appointment Ophthalmology at [address] [place] [address] Iraj Garcia MD [address] [place] [address] 10/21/2024 9:00 AM CDT Appointment Ophthalmology at [facility] [address] [place] [phone] 10/21/2024 9:30 AM CDT Appointment Ophthalmology at [facility] [address] [place] [phone] [place] [address] [place], [place] [phone] documented as of this encounter Visit Diagnoses Not on filedocumented in this encounter Care Teams Utility Mechanic Relationship Specialty [place] [address] [place], [place] [phone] PCP - General Family Practice 03/25/13 documented as of this encounter
--- OUTSIDE RECORDS SUMMARY | 2024-10-13 19:12 | XMS_ITS | Encounter Summary ---
Author Organization [facility] Address [address], [place] [address] Care Team Providers Care Audio Recording Engineer Name Role Phone Kristine Brown MD Primary Care Provider [phone] Reason for Visit * Reason Comments Reschedule Appointment Encounter Details Date Type Department Care Team (Late st Contact Info) Description 10/02/2024 Telephone Ophthalmology at [facility] [address] [facility] [address] [facility]. [place], [place] [phone] Iraj Garcia MD [address] [place] [phone] Reschedule Appointment Social History Tobacco Use Types [...] 10/14/2024 3:15 PM CDT Appointment Ophthalmology at [address] [place], [place] [phone] Iraj Garcia MD [address] [place] [phone] 10/21/2024 9:00 AM CDT Appointment Ophthalmology at [facility] [address] [place] [phone] 10/21/2024 9:30 AM CDT Appointment Ophthalmology at [facility] [address] [place] [phone] [place] [address] [place] [address] documented as of this encounter Visit Diagnoses Not on filedocumented in this encounter Care Teams Audio Recording Engineer Relationship Specialty [place] [address] [address] [place], [place] [phone] PCP - General Family Practice 03/25/13 documented as of this encounter
--- OUTSIDE RECORDS SUMMARY | 2024-10-13 19:12 | XMS_ITS | Encounter Summary ---
Author Organization [facility] Address [address] [address] Care Team Providers Care Multiple Effect Evaporator Operator Name Role Phone Kristine Brown MD Primary Care Provider Encounter Details Date Type Department Care Team (Late st Contact Info) Description 04/18/2016 Refill Order [facility] [address] [place], [place] [phone] [place] [address] [place], [place] [phone] Social History Tobacco Use Types Packs/Day Years [...] notified. Charlene Ortega CMA 05/05/2016, 6:11 PM ICAL INFORMATICS PHYSICIAN documented in this encounter Plan of Treatment Upcoming Encounters Date Type Department Care Team (Late st Contact Info) Description 10/14/2024 3:15 PM CDT Appointment Ophthalmology at [facility] [address] [facility] [address] [facility] [place] [address] Iraj Garcia MD [address] [place] [address] 10/21/2024 9:00 AM CDT Appointment Ophthalmology at [facility] [address] [place] [phone] 10/21/2024 9:30 AM CDT Appointment Ophthalmology at [facility] [address] [place] [phone] [place] [address] [place], [place] [phone] documented as of this encounter Visit Diagnoses Diagnosis Encounter for long-term (current) use of medications- Primary Encounter for long-term (current) use of other medications documented in this encounter Care Teams Multiple Effect Evaporator Operator Relationship Specialty [place] [address] [place], [place] [phone] PCP - General Family Practice 03/25/13 documented as of this encounter
--- OUTSIDE RECORDS SUMMARY | 2024-10-13 19:12 | XMS_ITS | Clinical Summary ---
Author Organization [employer] [facility] [employer] [facility] Address [address] [place] [address] Care Team Providers Care Reed Repairer Name Role Phone Miguel Dowling MD Primary Care Provider Allergies Active Allergy Reactions Criticality Noted Date [...] once daily. 10.4 mL 04/03/2022 3:25 PM BURGLAR ALARM INSTALLER 2 Active Active Problems Problem Noted Date Diagnosed Date Paroxysmal atrial fibrillation 03/31/2022 Rectal cancer 03/31/2022 Polycythemia 03/31/2022 Overview (03/31/2022): Going back at least as far as 2014. No workup. Hypertension 03/31/2022 Gout 03/31/2022 Macular degeneration 03/31/2022 Obesity (BMI 30.0-34.9) 03/31/2022 REBECCA (obstructive sleep apnea) 03/31/2022 Prediabetes 03/31/2022 Encounters Date Type Department Care Team Description 10/07/2024 [facility] [address] [place] [address] Yolanda Dunn NP Hospital F/U 10/05/2024 9:30 AM CDT Ancillary Procedure [facility] [address] [place] [address] 10/05/2024 Travel 10/05/2024 [facility] [address] [place] [address] Berry Almanza MD Telehealth ([facility]) from Last 3 Months Immunizations Immunization Administration Dates Next Due COVID-19 vaccine ([employer] 30mcg/0.3mL) KALINA Aponte 06/22/2020,05/29/2020 Social History Tobacco [...] on file Legal Sex Male 4:22 PM BURGLAR ALARM INSTALLER Gender Identity Not on file Sexual Orientation Not on file Obstetrics History Last Filed Vital Signs Vital Sign Reading Time Taken Comments Blood Pressure 142/78 04/03/2022 7:48 AM BURGLAR ALARM INSTALLER Pulse 105 04/03/2022 7:48 AM BURGLAR ALARM INSTALLER Temperature 37.1 C (98.7 F) 04/03/2022 7:48 AM BURGLAR ALARM INSTALLER Respiratory Rate 18 04/03/2022 7:48 AM BURGLAR ALARM INSTALLER Oxygen Saturation 92% 04/03/2022 7:48 AM BURGLAR ALARM INSTALLER Inhaled Oxygen Concentration - - Weight 106.3 kg (234 lb 5.6 oz) 022 11:00 AM BURGLAR ALARM INSTALLER Height 180.3 cm (5' 11) 03/31/2022 11: 30 AM BURGLAR ALARM INSTALLER Body Mass Index 32.69 03/31/2022 11:30 AM BURGLAR ALARM INSTALLER Plan of Treatment Upcoming Encounters Date Type Department Care Team (Late st Contact Info) Description 11/21/2024 1:30 PM CDT Office Visit Iraj Connor [facility] [address] [place] [phone] Yolanda Dunn NP [address] [place] [address] Health Maintenance Due Date Last Done Comments [...] 1-dose 75+ series) 2022 COVID-19 vaccine series ( season) 2023 06/22/2020, 05/29/2020 Influenza Vaccine (Season Ended) 2024 Hepatitis B series for 19+ Aged Out N o longer eligible based on patient's age to complete this topic Procedures Procedure Name Priority Date/Time Associated Diagnosis Comments ECHO TTE COMPLETE WO CONTRAST Routine 10/05/2024 10:19 AM CDT Stroke (HC) from Last 3 Months Results * ECHO TTE COMPLETE WO CONTRAST (10/05/2024 10:19 AM CDT) AORTIC VALVE MEAN PG 6 mmHg EJECTION FRACTION 64 % PEAK TR VELOCITY 2.2 m/s LVEDD 3.9 cm Anatomical Region Laterality Modality Ultrasound 10/05/2024 9:38 AM CDT Narrative 10/05/2024 5:08 PM CDT ECHOCARDIOGRAM ARMEN CRUMP : 1945 79 years Study Date: 10/05/2024 9:38:12 AM Gender: BP: 100/63 mmHg Height: 183.00 cm BSA: 2.29 m Weight: 107.00 kg Tech: MSR Referring MD: [facility] Reading Location: [facility] Patient Location: Inpatient. Procedure: 2D, Color Doppler and Spectral Doppler. Indication for study: Stroke Cardiac Rhythm: Regular.Study quality: Good. Final Impressions: 1. Normal left ventricular size, mildly increased wall thickness, normal global systolic function, calculated EF of 64 %. 2. The aortic valve is normal and trileaflet, no stenosis and trivial regurgitation. 3. The mitral valve is normal, trace mitral regurgitation. 4. Right ventricular cavity size is normal, global systolic RV function is normal. Chamber Sizes and Function Normal left ventricular size, mildly increased wall thickness, normal global systolic function, calculated EF of 64 %. No resting regional wall motion abnormality visualized. Left atrial size is normal. Left atrial pressure is normal. Right ventricular cavity size is normal, global systolic RV function is normal. The right atrium is normal. The pulmonary artery is of normal size and origin. The sinus of Valsalva is normal sized. The ascending aorta is normal sized. Valves, RV Pressures and Diastolic Function The aortic valve is normal in structure and trileaflet, no stenosis and trivial regurgitation. The mitral valve is normal in structure, trace mitral regurgitation. Normal diastolic function for age. The tricuspid valve is normal in structure, trace tricuspid regurgitation. The tricuspid regurgitant velocity is 2.2 m/s, the estimated right ventricular systolic pressure is 20 mmHg plus right atrial pressure. The pulmonic valve is normal. Trace pulmonary regurgitation. Masses, Effusion, Shunts There is no pericardial effusion. The inferior vena cava is normal sized, respiratory size variation greater than 50%. Interatrial septum is not well visualized. MEASUREMENTS AND CALCULATIONS 2-D Measurements and LV Function: LVID (d) 3.9 cm Planimetered EF 64 % LVID (s) 2.5 cm LV FS% (2D) 36 % IVS (d) 1.2 cm LVOT diameter 2.1 cm LVPW (d) 1.2 cm HR 88 bpm Ao Sinus 4.3 cm LA Vol index 15 ml/m2 Asc Ao 3.9 cm RV Basal Diam 5.1 cm Diastology: Mitral Tissue Doppler E Peak 0.6 m/s e', Septum 0.06 m/s A Peak 1.0 m/s e', Lateral 0.06 m/s E/A 0.6 E/e' Average 8.98 DT 115 msec Aortic Valve: Vmax 1.5 m/s JLUIS (V) 2.39 cm VTI 0.24 m JLUIS (I) 2.59 cm LVOT V max 1.0 m/s Max PG 9 mmHg LVOT VTI 0.18 m Mean PG 6 mmHg SV 63 ml Dim Index 0.74 SV index 28 ml/m CO 5.5 l/min CI 2.4 l/min/m Mitral Valve: MVA 6.6 cm MV P 1/2 33 msec Tricuspid Valve and estimated PA pressures: TR Vmax 2.2 m/s TAPSE 2.3 cm TR maxG 20 mmHg . This study was interpreted by an [facility] accredited facility. Final Procedure Note José Cifuentes MD - 10/05/2024 ECHOCARDIOGRAM ARMEN CRUMP : 1945 79 years Study Date: 10/05/2024 9:38:12 AM Gender: BP: 100/63 mmHg Height: 183.00 cm BSA: 2.29 m Weight: 107.00 kg Tech: MODESTO Referring MD: Site: [facility] Reading Location: [facility] Patient Location: Inpatient. Procedure: 2D, Color Doppler and Spectral Doppler. Indication for study: Stroke Cardiac Rhythm: Regular.Study quality: Good. Final Impressions: 1. Normal left ventricular size, mildly increased wall thickness, normalglobal systolic function, calculated EF of 64 %. 2. The aortic valve is normal and trileaflet, no stenosis and trivialregurgitation. 3. The mitral valve is normal, trace mitral regurgitation. 4. Right ventricular cavity size is normal, global systolic RV functionis normal. Chamber Sizes and Function Normal left ventricular size, mildly increased wall thickness, normalglobal systolic function, calculated EF of 64 %. No resting regional wallmotion abnormality visualized. Left atrial size is normal. Left atrialpressure is normal. Right ventricular cavity size is normal, globalsystolic RV function is normal. The right atrium is normal. The pulmonaryartery is of normal size and origin. The sinus of Valsalva is normalsized. The ascending aorta is normal sized. Valves, RV Pressures and Diastolic Function The aortic valve is normal in structure and trileaflet, no stenosis andtrivial regurgitation. The mitral valve is normal in structure, tracemitral regurgitation. Normal diastolic function for age. The tricuspidvalve is normal in structure, trace tricuspid regurgitation. The tricuspidregurgitant velocity is 2.2 m/s, the estimated right ventricular systolicpressure is 20 mmHg plus right atrial pressure. The pulmonic valve isnormal. Trace pulmonary regurgitation. Masses, Effusion, Shunts There is no pericardial effusion. The inferior vena cava is normal sized,respiratory size variation greater than 50%. Interatrial septum is notwell visualized. MEASUREMENTS AND CALCULATIONS 2-D Measurements and LV Function: LVID (d) 3.9 cm Planimetered EF 64 % LVID (s) 2.5 cm LV FS% (2D) 36 % IVS (d) 1.2 cm LVOT diameter 2.1 cm LVPW (d) 1.2 cm HR 88 bpm Ao Sinus 4.3 cm LA Vol index 15 ml/m2 Asc Ao 3.9 cm RV Basal Diam 5.1 cm Diastology: Mitral Tissue Doppler E Peak 0.6 m/s e', Septum 0.06 m/s A Peak 1.0 m/s e', Lateral 0.06 m/s E/A 0.6 E/e' Average 8.98 DT 115 msec Aortic Valve: Vmax 1.5 m/s JLUIS (V) 2.39 cm VTI 0.24 m JLUIS (I) 2.59 cm LVOT V max 1.0 m/s Max PG 9 mmHg LVOT VTI 0.18 m Mean PG 6 mmHg SV 63 ml Dim Index 0.74 SV index 28 ml/m CO 5.5 l/min CI 2.4 l/min/m Mitral Valve: MVA 6.6 cm MV P 1/2 33 msec Tricuspid Valve and estimated PA pressures: TR Vmax 2.2 m/s TAPSE 2.3 cm TR maxG 20 mmHg . This study was interpreted by an [facility] accredited facility. Final Berry Almanza MD ECHO ORD Final Result from Last 3 Months Insurance MEDICARE ADVANTAGE MR MEDICARE PART A HB ONLY Advance Directives * Full Code (Latest Code Status on File) Date Activated Date Inactivated Comments 03/31/2022 10:50 AM 04/03/2022 6:36 PM Question Answer Comments Code Status Discussion: Reviewed Preferences Care Teams Reed Repairer Relationship Specialty Start Date End Date Miguel Dowling MD [address] [place] [address] PCP - General Family Practice 10/05/24
--- OUTSIDE RECORDS SUMMARY | 2024-10-13 19:12 | XMS_ITS | Patient Health Record ---
Author Organization [facility] Address [address] [place] [address] Care Team Providers Care Barrel Driller Name Role Phone Miguel Dowling Primary Care Provider NATHANIEL Chu Unavailable [phone] None, None Unavailable Unavailable Allergies No Known Allergies Results Component Value Reference Range Notes MRI : Soft Tissue Neck W/WO Reviewed date:01/01/2024 06:00:09 PM Interpretation: Performing Lab: Notes/Report: Original Report CDI Location: [place]:[facility] EXAM: MR SOFT TISSUE NECK WITHOUT AND [...] Notes Problem Mass of right parotid gland ([id number]) 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 [address] [place] [address] 12/07/2023 NATHANIEL MUHAMMAD Mass of right parotid gland K11.8 [facility] [address] [place] [address] 01/01/2024 NATHANIEL MUHAMMAD Assessments Encounter Date Diagnosis [...] Insured Coverage Start Date Coverage End Date [employer] MEDICARE [address] [place], [place] [id number] Armen Crump Self - patient is the insured 4 MEDICARE [address] [place] [address] [id number] Armen Crump Self - patient is the insured 2 Medical (General) History Medical History History ICD Code HTN colorectal cancer Surgical History Surgery Date(Month/Year) rt knee replacement colorectal surgery
--- OUTSIDE RECORDS SUMMARY | 2024-10-13 19:12 | XMS_ITS | Clinical Summary ---
Author Organization [facility] Address [address] [place] [address] Care Team Providers Care Solar Field Installation Crew Member Name Role Phone Unavailable Primary Care Provider Unavailabl e Source Comments Patient records contain information from all sites at [facility]. For routine questions regarding patient records, call [phone] during business hours, M-F 8:00 AM - 5:00 PM Central Time. Record requests for emergency care only can be directed to [phone] at any time.[facility] Social History Tobacco Use Types Packs/Day Years Used Date Smoking Tobacco: Never Assessed Sex and Gender Information Value Date Recorded Sex Assigned at Not on file Legal Sex Male 11:45 AM CARD PUNCHING MACHINE OPERATOR Gender Identity Not on file Sexual Orientation [...] patient's age to complete this topic [facility]
--- OUTSIDE RECORDS SUMMARY | 2024-10-13 19:12 | XMS_ITS | Encounter Summary ---
Author Organization [facility] Address [address] [place] [address] Care Team Providers Care Cargo Handler Name Role Phone Kristine Brown MD Primary Care Provider [phone] Encounter Details Date Type Department Care Team (Late st Contact Info) Description 09/29/2009 Correspondence External to External, [place] [address] MED HX AND MEDICATIONS Social History Tobacco Use Types Packs/Day Years Used Date Smoking Tobacco: Never Assessed Sex and Gender Information Value Date Recorded Sex Assigned at Not on file Legal Sex Male 4:58 AM CDT Gender Identity Not on file Sexual Orientation Not on file documented as of this encounter Progress Notes * External, Provider - 09/29/2009 12:00 AM CDT DELIVERY VEHICLE TEAM TECHNICIAN documented in this encounter Plan of Treatment Upcoming Encounters Date Type Department Care Team (Late st Contact Info) Description 10/14/2024 3:15 PM CDT Appointment Ophthalmology at [facility] [address] [place], [place] [phone] Iraj Garcia MD [address] [place] [address] 10/21/2024 9:00 AM CDT Appointment Ophthalmology at [facility] [address] [address] [place] [phone] 10/21/2024 9:30 AM CDT Appointment Ophthalmology at [facility] [address] [place] [phone] [place] [address] [place], [place] [phone] documented as of this encounter Visit Diagnoses Not on filedocumented in this encounter Care Teams Cargo Handler Relationship Specialty [place] [address] [place] [address] PCP - General Family Practice 03/25/13 documented as of this encounter
--- OUTSIDE RECORDS SUMMARY | 2024-10-13 19:12 | XMS_ITS | Encounter Summary ---
Author Organization [facility] Address [address] [place] [address] Care Team Providers Care Wrapper Stitcher Name Role Phone Kristine Brown MD Primary Care Provider [phone] Reason for Visit * Reason Comments EMPF UL [place] F[place] Encounter Details Date Type Department Care Team (Late st Contact Info) Description 10/08/2024 Telephone [facility] Unassigned, Provider [address] [place] [address] EMPF (UL [place] Fell [place]/) Social History Tobacco Use Types Packs/Day Years [...] 3:15 PM CDT Appointment Ophthalmology at [address] [place] [address] Iraj Garcia MD [address] [place] [phone] 10/21/2024 9:00 AM CDT Appointment Ophthalmology at [facility] [address] [place] [address] 10/21/2024 9:30 AM CDT Appointment Ophthalmology at [facility] [address] [place] [address] [place] [address] [place] [address] documented as of this encounter Visit Diagnoses Not on filedocumented in this encounter Care Teams Wrapper Stitcher Relationship Specialty [place] [address] [place] [address] PCP - General Family Practice 03/25/13 documented as of this encounter
--- OUTSIDE RECORDS SUMMARY | 2024-10-13 19:12 | XMS_ITS | Clinical Summary ---
Author Organization [facility] Address [address] [place] [address] Care Team Providers Care C D Still Operator Name Role Phone Kristine Brown MD Primary Care Provider [phone] Source Comments You are receiving this document [...] for each transition of care or referral. [employer] Allergies Active Allergy Reactions Criticality Noted Date [...] BY MOUTH DAILY. 90 Tab 8 Active Additional Information Patient not taking.Reported on 10/09/2024 tamsulosin (FLOMAX) 0.4 MG CAPS capsule 0 [...] (12/14/2016): 11/06/15 Increase: Amlodipine to 10 mg. Madyosn Epperson RN 11/27/2015, 4:49 PM ; HTN (hypertension) (HR) Nurse managed Encounters Date Type Department Care Team Description 10/09/2024 2:00 PM CDT Office Visit [facility] [address] [phone] Brenna Reyes, DDS Problem Focused Exam (UL crown came off yesterday chewing popcorn. Previous rootcanal Tooth in crown., pt had recent stroke last Monday.) 10/08/2024 Telephone Dental Call Center Unassigned, Provider EMPF (UL [place] Fell Off/) 10/07/2024 Telephone Ophthalmology at [address] [address] Juaquin Meyer MD 10/02/2024 Telephone Ophthalmology at [address] [place] [address] Iraj Garcia MD Reschedule Appointment 09/09/2024 2:30 PM CDT Office Visit Ophthalmology at [address] 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 [address] Iraj Garcia MD [address] [place] [address] 10/21/2024 9:00 AM CDT Appointment Ophthalmology at [facility] [address] [address] [place] [address] 10/21/2024 9:30 AM CDT Appointment Ophthalmology at [facility] [address] [address] [place] [address] [place] [address] [place], [place] [phone] Health Maintenance Due Date Last Done Comments [...] Name Priority Date/Time Associated Diagnosis Comments 12 MODBL SEDATIVE FILLING Routine 10/09/2024 2:00 PM CDT Horizontal fracture of middle third of root of tooth Retained tooth root Loss of retention of dental crown LIMITED ORAL EVALUATION Routine 10/09/2024 2:00 PM CDT Horizontal fracture of middle third of root of tooth Retained tooth root Loss of retention of dental crown FILM-PERIAPICAL FIRST Routine 10/09/2024 2:00 PM CDT Horizontal fracture of middle third of root of tooth Retained tooth root Loss of retention of dental crown INTRAVITREAL INJECTION PHARMACOLOGIC AGENT OD RIGHT EYE [...] 2 MG/0.05ML Route: Intravitreal, Site: Right Eye [facility]: 34318-111-90, Lot: [id number], Expiration date: 10/22/2025, Waste: 0 mL us Iraj Garcia MD OPHTH CLINIC PROCEDURES Final Re sult [facility] * LIPID PANEL AND DIRECT [...] - 01/30/2015 12:26 PM CDT Performed at [facility], [address] [place] [address] us Kristine Brown MD LAB_1 Final Result [facility] [phone] from Last 3 Months or Most Recently Relevant to Health Maintenance Insurance MEDICARE ADVANTAGE [facility] [employer] [facility] Care Teams C D Still Operator Relationship Specialty [place] [address] [place] [address] PCP - General Family Practice 03/25/13
[2024-10-13 19:19] VITALS: BP 157/97; PULSE 82; RESP 16; TEMP 36.7; O2SAT 93; BMI 31.7
[2024-10-13 19:24] VITALS: PULSE 89; RESP 16; O2SAT 91
[2024-10-13 19:30] VITALS: PULSE 89; RESP 17; O2SAT 92
--- NOTE | 2024-10-13 19:31 | CRLHL7_ITS ---
For Patients: As a result of the Century Cures Act, medical imaging exams and procedure reports are released immediately into your electronic medical record. You may view this report before your referring provider. If you have questions, please contact your health care provider. INDICATION: History of stroke TECHNIQUE: Non-contrast CT of the head is submitted. Compared to prior MRI of the head from October 04, 2024 FINDINGS: The ventricles, sulci and gyri are of normal size, shape and contour. Midline structures are centrally located. No convincing evidence of intra- or extra-axial fluid collections. Prior changes seen within the right thalamus and midbrain are not demonstrated on the current study likely due to differences in imaging modality as well as possible interval improvement. IMPRESSION: 1. No convincing radiographic evidence of acute intracranial abnormalities. Please note that all CT scans at this facility use dose modulation, iterative reconstruction, and/or weight-based dosing when appropriate to reduce radiation dose to as low as reasonably achievable. Dictated by Jay Santiago MD @ 10/13/2024 8:12:40 PM (Electronically Signed)
--- NOTE | 2024-10-13 19:31 | CRLHL7_ITS ---
For Patients: As a result of the Century Cures Act, medical imaging exams and procedure reports are released immediately into your electronic medical record. You may view this report before your referring provider. If you have questions, please contact your health care provider. INDICATION: Headache, neck pain, recent stroke. TECHNIQUE: CTA head with contrast bolus tracking, 3D angiographic rendering using maximum intensity projection (MIP) and images permanently archived. FINDINGS: There is scattered intracranial atherosclerotic disease. There is normal opacification of the intracranial vasculature. There is no large vessel occlusion. No aneurysm is identified. IMPRESSION: No acute intracranial abnormality at CTA. Please note that all CT scans at this facility use dose modulation, iterative reconstruction, and/or weight-based dosing when appropriate to reduce radiation dose to as low as reasonably achievable. Dictated by Keith Aponte MD @ 10/14/2024 12:01:43 PM (Electronically Signed)
--- NOTE | 2024-10-13 19:31 | CRLHL7_ITS ---
For Patients: As a result of the Century Cures Act, medical imaging exams and procedure reports are released immediately into your electronic medical record. You may view this report before your referring provider. If you have questions, please contact your health care provider. INDICATION: Headache, neck pain, recent stroke. TECHNIQUE: CTA neck with contrast bolus tracking, 3D angiographic rendering using maximum intensity projection (MIP) and images permanently archived. FINDINGS: No interval change from 10/04/24. There is carotid atherosclerosis bilaterally. There is atherosclerotic plaque in the proximal right ICA resulting in a mild stenosis, less than 50% by NASCET. There is no significant left carotid artery stenosis or dissection. There is no significant vertebral artery stenosis or dissection. Degenerative changes are noted in the cervical spine. 1.7cm soft tissue lesion in the right parotid gland. 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 IMPRESSION: Mild proximal right ICA stenosis, less than 50% by NASCET. As previously described, 1.7cm soft tissue lesion in the right parotid gland. 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 Please note that all CT scans at this facility use dose modulation, iterative reconstruction, and/or weight-based dosing when appropriate to reduce radiation dose to as low as reasonably achievable. Dictated by Keith Aponte MD @ 10/14/2024 12:05:10 PM (Electronically Signed)
--- NOTE | 2024-10-13 19:32 | CRLHL7_ITS ---
For Patients: As a result of the Century Cures Act, medical imaging exams and procedure reports are released immediately into your electronic medical record. You may view this report before your referring provider. If you have questions, please contact your health care provider. INDICATION: Chest pain. Neck pain. TECHNIQUE: Chest 2 views. COMPARISON: Chest radiograph on October 04, 2024. CT PE study on October 04, 2024. FINDINGS: Cardiovascular and mediastinum: Heart size is normal. Unremarkable mediastinum. Lungs and pleural spaces: Bilateral diffuse interstitial prominence and perihilar bronchial wall thickening. Lung volumes are low with bibasilar patchy consolidation. No new lung abnormality compared to prior dated October 04, 2024. Bones and soft tissues: No significant findings. IMPRESSION: 1. Lung volumes are low with bibasilar patchy consolidation, most compatible with atelectasis. 2. Moderate pulmonary edema with bronchiolitis, similar to prior dated October 04, 2024. No new lung abnormality compared to prior. Dictated by Amanda Izquierdo MD @ 10/13/2024 8:15:45 PM (Electronically Signed)
--- NOTE | 2024-10-13 19:37 | ED.GENADULT ---
HPI - General Adult General Date Seen: 10/13/24 Chief complaint: Unspecified Complaint, Adult Stated complaint: Potential heart issues Time Seen by Provider: 10/13/24 19:15 Source: patient and family Mode of arrival: ambulatory Limitations: no limitations History of Present Illness HPI narrative: Patient is a 79-year-old male presenting to the emergency department with his family. He is presenting for left shoulder and neck pain. He states since he was discharged from the hospital 1 week ago with an ischemic stroke he has been having intermittent left shoulder and neck pain. States the pain today does not seem any worse than it was previously. Went to take a nap on his recliner and when he woke up he had the pain. He asked for some aspirin and due to that his family was concerned he could be having heart issues so they brought him to the emergency department. Pain is worse with movement. He states me looks right he feels neck pain but seems to go away when he looks left. Shoulder pain also increases with movement. Denies any shortness of breath. Denies fevers, chills, headache, abdominal pain, diarrhea, constipation, dysuria. Does have vision issues but that is been ongoing since his initial stroke. Family is concerned because he seems slightly more confused today. His states he has asked her the same question 10 different times today which is abnormal for him. He does not have any hearing issues. No other concerns noted Related Data Home Medications ?Medication ?Instructions ?Recorded ?Confirmed acetaminophen 325 mg tablet 650 mg PO Q6H PRN 05/09/22 10/05/24 (Tylenol) aflibercept 2 mg/0.05 mL 2 mg intravitreal Q60D 05/22/23 10/05/24 intravitreal solution for injection (Eylea) naproxen sodium 220 mg capsule 440 mg PO BID PRN 01/08/24 10/05/24 (Aleve) meclizine 25 mg tablet 25 mg PO QID PRN 10/05/24 10/05/24 blood-glucose meter (Accu-Chek #1 ea 10/10/24 10/10/24 Guide Glucose Meter) lancets (Accu-Chek Softclix #100 ea 10/10/24 10/10/24 Lancets) Previous Rx's ?Medication ?Instructions ?Recorded amlodipine 10 mg tablet 10 mg PO DAILY #90 tabs 07/05/24 Held on 10/06/24. Instructions: Resume on 10/14/24. Use the instructions given on when and how to use this medication. lisinopril 40 mg tablet 40 mg PO QDAY #90 tabs 07/05/24 Held on 10/06/24. Instructions: Resume on 10/11/24. Use the instructions given on when and how to use this medication. hydrochlorothiazide 25 mg tablet 25 mg PO QAM #30 tabs 09/30/24 aspirin 81 mg chewable tablet 81 mg PO DAILY #90 tabs 10/06/24 (Children's Aspirin) atorvastatin 40 mg tablet 40 mg PO HS #30 tabs 10/06/24 clopidogrel 75 mg tablet 75 mg PO DAILY #30 tabs 10/06/24 Allergies Allergy/AdvReac Type Severity Reaction Status Date / Time cefadroxil AdvReac GI Verified 10/13/24 20:14 upset/bloody stools Review of Systems Status of ROS: Reports: 10 or more systems reviewed and unremarkable except as noted in History and below [facility] Medical History Medicare annual wellness visit, subsequent ?Z00.00 - Encounter for general adult medical examination without abnormal findings (ICD-10) Vertigo ?R42 - Dizziness and giddiness (ICD-10) Urinary frequency ?R35.0 - Frequency of micturition (ICD-10) Urinary tract infection ?N39.0 - Urinary tract infection, site not specified (ICD-10) 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 - Other diseases of salivary glands (ICD-10) Adverse effect of non-steroidal anti-inflammatory drug (NSAID) ?T39.395A - Adverse effect of other nonsteroidal anti-inflammatory drugs [NSAID], initial encounter (ICD-10) Calculus of kidney ?N20.0 - Calculus of kidney (ICD-10) Enlarged prostate ?N40.0 - Benign prostatic hyperplasia without lower urinary tract symptoms (ICD-10) Gout ?M10.9 - Gout, unspecified (ICD-10) Hypertension ?I10 - Essential (primary) hypertension (ICD-10) Atrial fibrillation ?I48.91 - Unspecified atrial fibrillation (ICD-10) 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 neoplasm of rectosigmoid junction (ICD-10) Polycythemia ?D75.1 - Secondary polycythemia (ICD-10) Reoccurring knee pain ?M25.569 - Pain in unspecified knee (ICD-10) 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 (ICD-10) Diabetes ?E11.9 - Type 2 diabetes mellitus without complications (ICD-10) Pre-procedure lab exam ?Z01.812 - Encounter for preprocedural laboratory examination (ICD-10) Elevated PSA measurement ?R97.20 - Elevated prostate specific antigen [PSA] (ICD-10) History of agent [place] exposure ?Z77.098 - Contact with and (suspected) exposure to other hazardous, chiefly nonmedicinal, chemicals (ICD-10) Surgical History Status post knee replacement (~01/28/21) ?Z96.659 - Presence of unspecified artificial knee joint (ICD-10) Social History What is your current living situation?: I presently have a place to live Problems where you live: no known problems Problems where you live details: [facility] In the past 12 months, utilities in danger of being shut off: no In past 12 months, lack of transportation kept you from medical appts, meetings, work, or getting things needed for daily living: no In the past 12 mos, have been you worried that your food would run out before you had money to buy more?: never true In the past 12 mos, the food you bought just didn't last and you didn't have money to buy more?: never true Highest level of school completed/degree received: high school graduate Smoking Status: Former smoker Do you use any of these nicotine containing products: None Second hand tobacco smoke exposure: No How often do you have a drink containing alcohol: 2-3 times a week Alcohol type: hard liquor How many standard drinks containing alcohol do you have on a typical day: 1 or 2 How often do you have six or more drinks on one occasion: Never AUDIT-C Alcohol total score: 3 Non-prescribed substance use: denies use Caffeine: Yes (3-4 cups daily) How often does anyone, including family, friends and others, physically hurt you: never How often does anyone, including family, friends and others, insult or talk down to you: never How often does anyone, including family, friends and others, threaten you with harm: never How often does anyone, including family, friends and others, scream or curse at you: never service: Yes Exam Narrative: Exam Narrative: Const: Well-nourished, Well-developed, in mild distress Eyes: PERRL, no conjunctival injection, and symmetrical lids HENT: Atraumatic external nose and ears. Moist mucous membranes. Neck: Symmetric, trachea midline, No thyromegaly. CVS: RRR, No murmurs or gallops. Peripheral pulses 2+ and equal in all extremities RESP: Unlabored respiratory effort. Clear to auscultation bilaterally. GI: Nontender/Nondistended, No rebound or guarding. MSK:Extremities w/o deformity, decreased range of motion to left shoulder secondary to pain otherwise normal range of motion to rest of extremities. Tenderness noted to left shoulder anteriorly and to left paraspinal neck. Skin: Warm, Dry. No rashes or lesions. Neuro: Normal Muscle tone, No focal neurological deficits. Psych: Awake, Alert, & Oriented x3. Appropriate mood and affect. Const: Vital Signs, click to edit/add: Vital Signs - 24 hr 10/13/24 19:19 10/13/24 19:24 10/13/24 19:30 Temperature 98.0 F Pulse Rate 89 89 Pulse Rate [Pulse Oximeter] 82 Respiratory Rate 16 16 17 Blood Pressure Blood Pressure [Le ft Upper Arm] 157/97 H Pulse Oximetry 93 91 92 Oxygen Delivery Me thod Room Air 10/13/24 20:06 10/13/24 20:15 Temperature Pulse Rate 80 80 Pulse Rate [Pulse Oximeter] Respiratory Rate 21 20 Blood Pressure 133/88 Blood Pressure [Le ft Upper Arm] Pulse Oximetry 93 91 Oxygen Delivery Me thod Room Air Course Vital Signs Vital signs: Initial Vital Signs Temperature 98.0 F 10/13/24 19:19 Temperature Source Temporal Artery Scan 10/13/24 19:19 Pulse Rate 82 10/13/24 19:19 Respiratory Rate 16 10/13/24 19:19 Blood Pressure 157/97 H 10/13/24 19:19 Blood Pressure Mean 117 H 10/13/24 19:19 Blood Pressure Position Sitting 10/13/24 19:19 Pulse Oximetry 93 10/13/24 19:19 Oxygen Delivery Method Room Air 10/13/24 19:19 Vital Signs Temperature 98.0 F 10/13/24 19:19 Pulse Rate 82 10/13/24 19:19 Respiratory Rate 16 10/13/24 19:19 Blood Pressure 157/97 H 10/13/24 19:19 Pulse Oximetry 93 10/13/24 19:19 Oxygen Delivery Method Room Air 10/13/24 19:19 Temperature 98.0 F 10/13/24 19:19 Pulse Rate 80 10/13/24 20:15 Respiratory Rate 20 10/13/24 20:15 Blood Pressure 133/88 10/13/24 20:06 Pulse Oximetry 91 10/13/24 20:15 Oxygen Delivery Method Room Air 10/13/24 20:06 Medications Administered Medications: Discontinued Medications Generic Name Dose Route Start Last Admin Trade Name Freq PRN Reason Stop Dose Admin Lactated Ringer's 1,000 mls @ 1,000 mls/hr 10/13/24 19:30 10/13/24 20:09 Lactated Ringers 1000 Ml IV 10/13/24 20:29 1,000 mls/hr .Q1H ONE Administration Medical Decision Making MDM Narrative Medical decision making narrative: Patient is 79-year-old male presenting for some mild confusion along with neck and shoulder pain. With the neck pain I will do a CTA of his neck and head to make sure there is no underlying dissections. Will also do CT head without contrast. Considering his recent hospitalization will do a COVID/flu/RSV is likely be the cause of his confusion. Also check a urinalysis. His pain seems to be musculoskeletal in nature but with his history I will do a chest x-ray also. Some fluid given for possible dehydration. Will also do CBC, CMP, magnesium. Lab work returned showing no acute concerning abnormalities. Does high hemoglobin this is consistent with his previous hemoglobin. Rest of his labs showed no concerning findings. No signs of UTI. Urinalysis appears normal. Troponin shows no acute abnormalities. EKG shows no concerning findings. Considering he states the arm pain has been going on off the past week I do not believe I need a repeat troponin. His neck pain and shoulder pain does appear to be musculoskeletal in nature based on my history and physical exam. Chest x-ray reviewed by myself the radiologist shows no acute concerning abnormalities. He does have some bibasilar atelectasis which could potentially actually be a bibasilar pneumonia but with no respiratory symptoms this seems less likely. CT scan showed no acute changes. At this time I do believe he is safe for discharge. Him and his agree with this plan. Lab Data Labs: Lab Results 10/13/24 10/13/24 10/13/24 Range/Units 19:32 19:35 19:38 WBC 5.72 (4.50-11.00) K/uL RBC 6.51 H (4.30-5.90) m/uL Hgb 19.8 H (13.5-17.5) gm/dL Hct 57.6 H (37.0-53.0) % MCV 89 (80-100) fL MCH 30 (26-34) pg MCHC 34 (32-36) gm/dL RDW Coeff of Scott 12.6 (11.5-15.5) % Plt Count 247 (140-440) K/uL Neut % (Auto) 55.2 (42.0-72.0) % Lymph % (Auto) 28.5 (20-44) % Day % (Auto) 10.8 (0.0-11.0) % Eos % (Auto) 3.7 (0.0-7.0) % Baso % (Auto) 0.2 (0.0-3.0) % Neut # (Auto) 3.16 (1.7-7.0) K/uL Lymph # (Auto) 1.63 (0.90-2.90) K/uL Day # (Auto) 0.60 (0.00-0.90) K/UL Eos # (Auto) 0.21 (0.00-0.50) K/uL Baso # (Auto) 0.01 (0.00-0.30) K/uL Abs Immat Gran (auto) 0.09 (0.00-0.30) K/uL Imm/Tot Granulo (auto) 1.6 % Sodium 138 (135-149) mmol/L Potassium 4.3 (3.6-5.1) mmol/L Chloride 105 (96-114) mmol/L Carbon Dioxide 22 (20-32) mmol/L Anion Gap 11 (7-15) mEq/L BUN 25 (7-30) mg/dL Creatinine 1.1 (0.5-1.5) mg/dL Estimated Creat Clear 61.73 Estimated GFR 69 ml/min Glucose 168 H (60-115) mg/dL Calcium 9.2 (8.4-10.6) mg/dL Magnesium 2.2 (1.5-2.6) mg/dL Total Bilirubin 0.8 (0.1-1.5) mg/dL AST 38 H (12-35) U/L ALT 46 (4-50) U/L Alkaline Phosphatase 73 (40-150) U/L Troponin I < 0.01 (0.01-0.04) ng/mL Total Protein 7.6 (6.0-8.3) g/dL Albumin 4.5 (3.3-5.0) g/dL Urine Color Yellow (Yellow) Urine Appearance Clear (Clear) Urine pH 5.5 (5.0-8.5) Ur Specific [place] 1.025 (1.000-1.030) Urine Protein Negative (Negative) Urine Glucose (UA) Negative (Negative) Urine Ketones Negative (Negative) Urine Blood Negative (Negative) Urine Nitrite Negative (Negative) Urine Bilirubin Negative (Negative) Urine Urobilinogen 1.0 (0.2-1.0) Ur Leukocyte Esterase Negative (Negative) Urine RBC 0-2 (0-2) Urine WBC 0-2 (0-5) Ur Squamous Epith Cells Few (None-Few) Urine Bacteria None (None) SARS-CoV-2 (PCR) Negative SARS-CoV-2 (Negative) Influenza Type A (PCR) Negative PCR FLU A (Negative) Influenza Type B (PCR) Negative PCR FLU B (Negative) RSV (PCR) Negative PCR RSV (Negative) POC Troponin I 0.00 L (0.01-0.04) ng/ml Imaging Data Chest x-ray: Attestation: I have reviewed the pertinent imaging results. Radiologist's impression: 1. Lung volumes are low with bibasilar patchy consolidation, most compatible with atelectasis. 2. Moderate pulmonary edema with bronchiolitis, similar to prior dated October 04, 2024. No new lung abnormality compared to prior. Dictated by Amanda Izquierdo MD @ 10/13/2024 8:15:[address] scan head: Attestation: I have reviewed the pertinent imaging results. Radiologist's impression: 1. No convincing radiographic evidence of acute intracranial abnormalities. Please note that all CT scans at this facility use dose modulation, iterative reconstruction, and/or weight-based dosing when appropriate to reduce radiation dose to as low as reasonably achievable. Dictated by Jay Santiago MD @ 10/13/2024 8:12:40 PM CTA head: Attestation: I have reviewed the pertinent imaging results. Radiologist's impression: Preliminary Report: FINDINGS: Compared to prior study from October 05, 2024. Stable irregularity of the left posterior cerebral artery. The remainder of the visualized 1st and 2nd order intracranial vessels appear patent. No convincing evidence of high grade narrowing or prominent aneurysm formation. Stable lesion within the right parotid gland. Dictated by Jay Santiago MD @ 10/13/2024 8:15:23 PM CTA neck: Attestation: I have reviewed the pertinent imaging results. Radiologist's impression: Preliminary Report: FINDINGS: The cervical arteries appear patent. Atherosclerotic changes within the carotid bifurcations bilaterally. No convincing evidence suspicious high-grade narrowing or prominent aneurysm formation. Dictated by Jay Santiago MD @ 10/13/2024 8:16:07 PM ECG Data Attestation: I personally reviewed and interpreted this ECG as follows: Prior ECG tracings: available for review Interpretation: Normal sinus rhythm with a rate of 79 beats per minute, normal intervals, normal axis, no ST or T-wave abnormalities. Appears similar previous EKG on file. Discharge Plan Discharge Clinical Impression: Neck pain Left shoulder pain Qualifiers: Chronicity: acute Qualified Code(s): M25.512 - Pain in left shoulder Patient Disposition: Home, Self-Care Condition: Stable Instructions: Shoulder Pain (ED) Additional Instructions: I believe your shoulder and neck pain are musculoskeletal in nature. No signs of heart issues at this time. Your imaging shows no acute concerning abnormalities. If you do start showing any new or concerning symptoms please return for re-evaluation. Prescriptions: No Action naproxen sodium [Aleve] 220 mg capsule 440 mg PO BID PRN (DME) blood-glucose meter [Accu-Chek Guide Glucose Meter] Misc See Rx Instructions .ROUTE DIRECTED Qty: 1 Rx Instructions: As directed (DME) lancets [Accu-Chek Softclix Lancets] Misc See Rx Instructions .ROUTE BID Qty: 100 Rx Instructions: As directed acetaminophen [Tylenol] 325 mg tablet 650 mg PO Q6H PRN Eylea 2 mg/0.05 mL solution 2 mg intravitreal Q60D hydrochlorothiazide 25 mg tablet 25 mg PO QAM Qty: 30 1RF meclizine 25 mg tablet 25 mg PO QID PRN atorvastatin 40 mg Tablet 40 mg PO HS Qty: 30 0RF clopidogrel 75 mg Tablet 75 mg PO DAILY Qty: 30 0RF aspirin [Children's Aspirin] 81 mg Tablet,Chewable 81 mg PO DAILY Qty: 90 0RF lisinopril 40 mg tablet 40 mg PO QDAY Qty: 90 3RF amlodipine 10 mg tablet 10 mg PO DAILY Qty: 90 3RF Follow Up/Referrals: Miguel Dowling MD [Primary Care Provider, Family Practice] Stand Alone Forms: MyHealth Info Instructions
[2024-10-13 20:06] VITALS: BP 133/88; PULSE 80; RESP 21; O2SAT 93
[2024-10-13] MEDS: LACTATED RINGERS 1000 ML 1,000 ML IV (20:09)
[2024-10-13 20:15] VITALS: PULSE 80; RESP 20; O2SAT 91
[2024-10-13 20:18] LABS: Appearance Urine Clear (Clear); Bilirubin Urine Negative (Negative); Blood Urine Negative (Negative); Color Urine Yellow (Yellow); Glucose Urine Negative (Negative); Ketones Urine Negative (Negative); Leukocyte Esterase Urine Negative (Negative); Nitrite Urine Negative (Negative); Protein Urine Negative (Negative); Specific Gravity Urine 1.025 (1.000-1.030); pH Urine 5.5 (5.0-8.5)
[2024-10-13 20:22] LABS: RBC Urine 0-2 (0-2); Squamous Epithelial Cell Urine Few (None-Few); WBC Urine 0-2 (0-5)
[2024-10-13 20:25] LABS: Albumin* 4.5 g/dL (3.3-5.0); Chloride* 105 mmol/L (96-114); Potassium* 4.3 mmol/L (3.6-5.1); Sodium* 138 mmol/L (135-149)
[2024-10-13 20:27] LABS: Basophils Absolute Auto 0.01 K/uL (0.00-0.30); Basophils Percent Auto 0.2 % (0.0-3.0); Eosinophils Absolute Auto 0.21 K/uL (0.00-0.50); Eosinophils Percent Auto 3.7 % (0.0-7.0); Hematocrit 57.6 % (37.0-53.0); Hemoglobin* 19.8 gm/dL (13.5-17.5); Immature Granulocytes Abs Auto 0.09 K/uL (0.00-0.30); Immature Granulocytes Pct Auto 1.6 %; Lymphocytes Absolute Auto 1.63 K/uL (0.90-2.90); Lymphocytes Percent Auto 28.5 % (20-44); Mean Corpuscular HGB Conc 34 gm/dL (32-36); Mean Corpuscular Hemoglobin 30 pg (26-34); Mean Corpuscular Volume 89 fL (80-100); Monocytes Percent Auto 10.8 % (0.0-11.0); Neutrophils Absolute Auto 3.16 K/uL (1.7-7.0); Neutrophils Percent Auto 55.2 % (42.0-72.0); Platelet Count* 247 K/uL (140-440); RDW Coefficient of Variation % 12.6 % (11.5-15.5); Red Blood Count 6.51 m/uL (4.30-5.90); White Blood Count* 5.72 K/uL (4.50-11.00)
[2024-10-13 20:28] LABS: Alanine Aminotransferase* 46 U/L (4-50); Alkaline Phosphatase* 73 U/L (40-150); Anion Gap 11 mEq/L (7-15); Aspartate Amino Transferase* 38 U/L (12-35); Bilirubin Total* 0.8 mg/dL (0.1-1.5); Blood Urea Nitrogen* 25 mg/dL (7-30); Carbon Dioxide* 22 mmol/L (20-32); Creatinine* 1.1 mg/dL (0.5-1.5); Est. Creatinine Clearance* 61.73; Estimated Glomerular Filt Rate 69 ml/min; Total Protein* 7.6 g/dL (6.0-8.3)
[2024-10-13 20:29] LABS: Calcium* 9.2 mg/dL (8.4-10.6); Glucose* 168 mg/dL (60-115); Magnesium* 2.2 mg/dL (1.5-2.6)
[2024-10-13 20:32] LABS: Slide Review Reflex No
[2024-10-13 20:47] LABS: PCR FLU A Negative PCR FLU A (Negative); PCR FLU B Negative PCR FLU B (Negative); PCR RSV Negative PCR RSV (Negative); SARS PCR* Negative SARS-CoV-2 (Negative)
[2024-10-13 20:49] LABS: Troponin I* < 0.01 ng/mL (0.01-0.04)
== END 2024-10-13 21:09 | disposition home or self-care (01) ==
LOC: ED 21:05
PROVIDERS: Emergency Provider Student in an Organized Health Care Education/Training Program; PCP Family Medicine
DX: M25.512 Pain in left shoulder (principal); M54.2 Cervicalgia
CPT/HCPCS: 36415; 70450; 70496; 70498; 71046; 80053; 81001; 83735; 84484; 85025; 87631; 93005; 96360; 99284; 99285; J7120; Q9967

== ENCOUNTER 2024-11-11 13:07 | Outpatient (CLI) | payer OTHER, SELFPAY | END 2024-11-11 13:08 | disposition home or self-care (01) | LOC: LKVREF 13:10 | PROVIDERS: PCP Family Medicine; Visit Provider Family Medicine | DX: I10 Essential (primary) hypertension (principal); C19 Malignant neoplasm of rectosigmoid junction | CPT/HCPCS: 80053; 82378 ==

== ENCOUNTER 2024-11-20 14:25 | Outpatient (CLI) | payer OTHER, SELFPAY ==
--- NOTE | 2024-11-20 15:00 | CRLHL7_ITS ---
For Patients: As a result of the Century Cures Act, medical imaging exams and procedure reports are released immediately into your electronic medical record. You may view this report before your referring provider. If you have questions, please contact your health care provider. INDICATION: Colorectal cancer, status post resection TECHNIQUE: CT abdomen and pelvis acquired with 114 cc Isovue 370 IV contrast. COMPARISON: CT abdomen and pelvis 10/04/2024, PET/CT 09/28/2023, CT chest abdomen pelvis 06/20/2023 FINDINGS: Lower chest: Bibasilar atelectasis. Liver: Hepatic steatosis. Normal hepatic contour. Hypoattenuating right hepatic lobe lesion measuring 0.7 cm (2/36), too small to accurately characterize although not definitely seen on prior CT from 06/20/2023 Gallbladder and bile ducts: Unremarkable. No stones or inflammation. No biliary dilatation. Pancreas: Fatty atrophy of the pancreatic parenchyma. No mass or inflammation. Spleen: Slightly increased rim enhancing lesion in the interpolar region of the spleen measuring 1 cm, previously 0.9 cm. This previously measured 0.5 cm and was homogeneously enhancing on prior CT from 06/20/2023. Adrenal glands: Nodular right adrenal gland. Kidneys: Stable intermediate density right interpolar renal lesion measuring 1.3 cm (4/103). Additional bilateral renal cysts measuring up to 2.4 cm on the right. No stones or hydronephrosis. GI tract: Postsurgical changes of the rectosigmoid junction, no evidence of recurrence at the surgical margin. The bowel is normal in caliber. No sign of mass or inflammation. The appendix is not well seen and may be surgically absent Vasculature: Abdominal aorta is normal in caliber. Mesenteric arteries are patent. Lymph nodes: No lymphadenopathy. Peritoneum/Abdominal Wall: Unremarkable. No sign of mass or infiltration. No free air or significant free fluid. Pelvis: Prostatomegaly measuring 6.6 cm in transverse dimension. Bladder: Similar layering bladder calculi Bones: Degenerative change of the visualized spine, most severe at L2-L3. Healing left anterior rib fracture. IMPRESSION: 1. Post resection changes of the rectosigmoid junction without evidence of recurrence at the surgical margin. 2. Possible new subcentimeter right hepatic lobe lesion is too small to accurately characterize. Consider further evaluation with liver protocol MRI. 3. Increasing rim enhancing lesion in the spleen, possibly a hemangioma. This can also be further evaluated on liver MRI if performed. 4. Stable indeterminate intermediate attenuation right renal lesion. 5. Hepatic steatosis. 6. Prostatomegaly with similar layering bladder calculi. Please note that all CT scans at this facility use dose modulation, iterative reconstruction, and/or weight-based dosing when appropriate to reduce radiation dose to as low as reasonably achievable. Dictated by Negrita Ortiz MD @ 11/25/2024 12:33:39 PM (Electronically Signed)
== END 2024-11-20 14:26 | disposition home or self-care (01) ==
LOC: CT 14:25
PROVIDERS: PCP Family Medicine; Visit Provider Internal Medicine Hematology & Oncology
DX: C19 Malignant neoplasm of rectosigmoid junction (principal); K76.0 Fatty (change of) liver, not elsewhere classified; K76.89 Other specified diseases of liver; K80.20 Calculus of gallbladder without cholecystitis without obstruction; K86.2 Cyst of pancreas; I63.9 Cerebral infarction, unspecified; D75.1 Secondary polycythemia
CPT/HCPCS: 36415; 74177; 80053; 81270; 82378; 82668; 85025; Q9967

== ENCOUNTER 2024-11-26 10:10 | Outpatient (CLI) | payer OTHER, SELFPAY ==
--- NOTE | 2024-12-03 11:39 | W.PM.SLEEP ---
Sleep Study Details Details Interpreting Provider: Johanny Date of Sleep Study: 11/26/24 Sleep Study Details: STUDY TYPE:? Home unattended ? BMI:? Not recorded ORDERING PROVIDER:? Johanny INDICATION:? Concern about sleep apnea ? SLEEP SUMMARY:? 511 minutes monitored RESPIRATORY SUMMARY:? AHI 28.1 per CMS guideline, 34.8 per rule 1A, central index 6.5 Low oxygen 79 54% of study oxygen less than 90% Snoring 93% PERIODIC LIMB MOVEMENTS OF SLEEP:? Not recorded CARDIAC:? Range 46-107, mean 62.4 beats per minute IMPRESSION:? Moderate to severe obstructive sleep apnea (moderate per CMS guideline). Central index was 6.5. Significant hypo oxygenation was noted RECOMMENDATION: Would recommend an in-lab titration for CPAP or bilevel. Once effective therapy is established she should have an overnight oximeter to determine if he requires nocturnal oxygen.
== END 2024-11-26 10:11 | disposition home or self-care (01) ==
LOC: SLEEP 10:11
PROVIDERS: PCP Family Medicine; Visit Provider Otolaryngology
DX: G47.33 Obstructive sleep apnea (adult) (pediatric) (principal)
CPT/HCPCS: 95806

== ENCOUNTER 2024-11-29 08:54 | Outpatient (CLI) | payer OTHER, SELFPAY ==
--- NOTE | 2024-11-29 09:00 | CRLHL7_ITS ---
For Patients: As a result of the Century Cures Act, medical imaging exams and procedure reports are released immediately into your electronic medical record. You may view this report before your referring provider. If you have questions, please contact your health care provider. 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 The liver mass protocol was utilized. Contrast: 20 mL Dotarem FINDINGS: Severe diffuse hepatic steatosis. Segmentally very severe steatosis in segment V. no cirrhosis. The liver is not enlarged. In segment VIII anteriorly near the diaphragm there is a 5 millimeter very well-circumscribed T2 hyperintense focus that demonstrates no contrast enhancement or restricted diffusion. There is some T2 shine through. The appearance is consistent with a benign cyst. There are no other liver lesions. Cholelithiasis. No gallbladder wall thickening or pericholecystic fluid. Minimal intrahepatic biliary ductal dilatation. The cystic duct is not dilated. The common bile duct measures 9 millimeters. There is a 5 millimeter T2 hypointense filling defect in the distal common bile duct. There is a 4 millimeter filling defect more proximally in the mid common bile duct. Conventional pancreatico biliary junction anatomy. Normal pancreatic parenchyma. Numerous tiny T2 hyperintense cystic lesions in the pancreatic parenchyma. Main duct extension is not clearly visible due to the small size. The largest of the cystic lesions measures about 3 millimeters. The pancreatic duct is not dilated. There is a 7 millimeter splenic lesion that is very T2 hyperintense and demonstrates hyperenhancement consistent with a small intra splenic hemangioma. Spleen length is 14 cm, upper limits of normal. Normal adrenal glands. There are bilateral renal cysts. This includes a right lower pole cyst that measures 1.5 cm and has a 2 millimeter enhancing septation. No upper urinary tract dilatation. No adenopathy. No ascites. No dilated or inflamed bowel. Colonic diverticulosis without diverticulitis. Disc degeneration in the lumbar spine. No focal bone lesions. IMPRESSION: 1. No findings of metastasis in the liver or upper abdomen. 2. Severe hepatic steatosis. 3. There is a 5 millimeter hepatic cyst. 4. Cholelithiasis. No cholecystitis. 5. Choledocholithiasis with very mild biliary ductal dilatation. 6. 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 Consider biannual follow-up with MR pancreas without and with IV contrast. 7. There is a 7 millimeter splenic hemangioma. Dictated by Darlin Milligan MD @ 12/02/2024 8:24:43 AM (Electronically Signed)
== END 2024-11-29 08:55 | disposition home or self-care (01) ==
LOC: MRI 08:54
PROVIDERS: PCP Family Medicine; Visit Provider Internal Medicine Hematology & Oncology
DX: C19 Malignant neoplasm of rectosigmoid junction (principal); K76.0 Fatty (change of) liver, not elsewhere classified; K76.89 Other specified diseases of liver; K80.20 Calculus of gallbladder without cholecystitis without obstruction; K86.2 Cyst of pancreas; K80.50 Calculus of bile duct without cholangitis or cholecystitis without obstruction
CPT/HCPCS: 74183; A9575

== ENCOUNTER 2024-12-19 09:30 | Outpatient (RCR) | payer OTHER, SELFPAY ==
--- NOTE | 2024-10-10 15:30 | OT.OPGNE2 ---
OT Outpatient General/Neuro Eval OT Outpatient General/Neuro Eval* Start: 10/10/24 09:11 Freq: Status: Active Protocol: Document 10/10/24 09:11 HELENA (Rec: 10/10/24 15:25 HELENA [id number]) E-signed By Yoselin Bajwa, OTR/L, CLT OT Outpatient Evaluation Details Type Type Eval Complexity Medium Insurance Information Insurance Information Insurance [facility],Medicare B Information Outpatient History/Precautions Current Condition Referring Provider Dr. Marie Wu Medical Diagnoses I63.9: Cerebral infarction, unspecified Treatment Diagnoses H53.2: Double vision (diplopia) R26.81: Unsteadiness on feet R41.89: Other symptoms and signs involving cognitive functions and awareness Date of Onset symptoms began 09/30/24; ED/hospital on 10/04/24 Medical/Functional History Medical History Yes Reviewed Prior Level of Goes to bed around 10pm wakes up 1 or 2 times to pee Function/Mobility and wakes up around 5:30-6am in the morning to start his day. No set routine since assisted, enjoys spending time with his spouse Pat and extended family . Is really missing driving-would go to breakfast/get coffee with eunice friends in the morning. 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 Medications: New atorvastatin 40 mg Tablet 40 mg PO HS Qty: 30 0RF clopidogrel 75 mg Tablet 75 mg PO DAILY Qty: 30 0RF aspirin [Children's Aspirin] 81 mg Tablet,Chewable 81 mg PO DAILY Qty: 90 0RF Continued naproxen sodium [Aleve] 220 mg capsule 440 mg PO BID PRN acetaminophen [Tylenol] 325 mg tablet 650 mg PO Q6H PRN Eylea 2 mg/0.05 mL solution 2 mg intravitreal Q60D meclizine 25 mg tablet 25 mg PO QID PRN Held hydrochlorothiazide 25 mg tablet 25 mg PO QAM Qty: 30 1RF Hold Instructions: Resume on 10/10/24. Use the instructions given on when and how to use this medication. lisinopril 40 mg tablet 40 mg PO QDAY Qty: 90 3RF Hold Instructions: Resume on 10/11/24. Use the instructions given on when and how to use this medication. amlodipine 10 mg tablet 10 mg PO DAILY Qty: 90 3RF Hold Instructions: Resume on 10/14/24. Use the instructions given on when and how to use this medication. Discontinued aspirin 325 mg tablet 325 mg PO DAILY dimenhydrinate [Dramamine] 50 mg tablet 50 mg PO Q6H PRN Precautions General Precautions Discharge Instructions from the hospital: Aspirin and Plavix every day for a month, then aspirin only o Blood pressure management (take once a day, at different times, write it down) o Goal is 120-140/70-90 ? 80% of readings should be in this range o On 10/10 if your BP is >150 start your HCTZ back at 25mg daily o On 10/11 if your BP is >150 start your lisinopril back at 20mg (not 40mg) o On 10/12 if your BP is >150 increase the lisinopril back at 40mg o I want your BP to be at least 120 so if you start to find it drifting (more than 20% of the time to less than 120), cut the lisinopril to 20, then hold it completely, then hold the HCTZ ? essentially the reverse of how we added. o BP is supposed to go up and down so don?t let one number confuse you. If one number is really out of whack, then you can retake it in 1-2 hours. Otherwise stick to once a day and look at trends over 1-2 weeks than hour to hour trends. o Dr. Dowling will take over and until you see him and show him your blood pressure log ? do not restart the amlodipine. o Come to the ED if your blood pressure is >220/110 or less than 90/50. o Sleep Study and no whining about the mask until you try it. And even then suck it up buttercup. o Weight loss and blood sugar control (I highly suggest a GLP1 shot (Ozempic for example) each week) o If we find AFIB ? treat and take a blood thinner. That is why you are wearing a patch to look for AFIB in the next 2 weeks. o Take Lipitor (a statin, a cholesterol medication) for not just the lowering effect but for the anti- inflammatory effect on your brain. o Go see a stroke specialist and Dr. Dowling in follow-up o Go back and see a certified dietary manager for the PCV ( Polycythemia Vera) DISCHARGE MEDICATIONS: See Reconciled list - SIGNIFICANT CHANGES: Baby aspirin, 81 mg, chew daily. For 1 month combined this with 75 mg clopidogrel. 40 mg Lipitor nightly. Social History Type of Dwelling Multilevel Home Lives With: Spouse Employment Status Retired Patient Subjective Subjective Patient Subjective I asked patient what the biggest deficits/differences he is noticing since the stroke and he stated: My balance, feeling dizzy, my double vision, weakness on the L side of my body and fatigue Patient also discusses that not being able to drive right now is a huge loss in his [place] and overall happiness- while he understands this is necessary-he is hoping it is only temporary. He has upcoming appointments with Neurology and the Eye Doctor next week. Patient previously ambulated w/o a device, and now presents to the clinic using a FWW. With a small amount of activity (walking 50 feet with device, in/out of the bed x1) vitals on the L UE were 158/104, HR 122 and oxygen on room air 97%. After 4 mins of rest everything came back down: 136/90, HR 105 and oxygen 97% Patient's Cara has been monitoring and recording vitals at home since the 06 of October. Patient's discharge orders have strict ranges to follow. Patient has a f/u with his PCP lateral this afternoon at 4pm. Of note, patient stated that his R knee flared up on him this AM-he has a hx of gout and has needed to have his knee drained in the past. Pain Assessment Pain Pain Yes Pain Comments /10 left rib pain from the fracture 10/01 R knee -seeing Dr. Dowling at 4pm to discuss his knee Hand Pinch/Table Assembler Strength Hand Pinch/Table Assembler Strength Hand Pinch/Table Assembler Left Hand,Right Hand Strength Left Hand Table Assembler Strength 50 Position 1 in Elbow Flexion (lbs) Table Assembler Strength 53 Position 2 in Elbow Extension (lbs) Lateral Pinch 16 Strength (lbs) Three Point Pinch ( 10 lbs) Right Hand Table Assembler Strength 53 Position 1 in Elbow Flexion (lbs) Table Assembler Strength 55 Position 2 in Elbow Extension (lbs) Lateral Pinch 13 Strength (lbs) Three Point Pinch ( 10 lbs) Comments Comments In grid measurements were taken on Outpatient EVAL 10/10; below are the scores from when patient was in the hospital on 10/05/24 scores: Table Assembler Strength R 65# L 55# R hand dominant Bach Table Assembler R 12# L 17# Pincer Table Assembler R 9 # L 13# Palmar Table Assembler R 12# L 14# Cognitive Assessments Performed Oriented Patient oriented Person,Place,Time,Situation Cognitive Assessments Performed Other Assessment Results L macular degeneration, double vision w/ both eyes open . Impulsivity noted, MOCA score in the hospital on 10/05 was 25/30 w/ deficits in visual motor, language fluency, abstraction, and delayed recall. Vision/Hearing Vision Tracking Impaired Tracking Comments mild diplopia (patient wears eye glasses multimedia educational specialist) *He will see his eye doctor next week Saccades WNL Vision Changes Blurring,Diplopia Balance Assessment Comments Balance Comments 30 second Chair Stand Test (8 times) = Goal for a male 75-79 years old would be greater than < 11 Falls Self Efficacy Scale 39/64 points Functional Reach Score ( 7 inches) 10?/25 cm or greater: Low risk of falls; 6?/15cm to 10?/25cm Risk of falling is 2x greater than normal; 6?/15cm or less Risk of falling is 4x greater than normal; Unwilling to reach: Risk of falling is 8x greater than normal Assessment Assessment Assessment 79 year old retired male patient was admitted at [facility] for 2 days after determining that he suffered from an acute ischemic infarcts in the right anteromedial thalamus and right medial cerebral peduncle. Mr. Crump's stroke symptoms were predominantly left-sided weakness, left lean with walking, diplopia and dizziness. -sudden onset of vertigo on 09/25/2024, persistent since, assessed for the same on 09/26/24 in the [facility] ED, 09/30/24 in the clinic, 10/03/24 in the [facility] ED, on 10/04/24 in the clinic then was advised to go in to the [facility] ED. -CT scan of head without contrast on 09/26/24 and 10/03/24 demonstrated, Normal brain parenchymal morphology. Stable small focal low- attenuation change of the right thalamus consistent with an old lacunar infarct. -MRI of brain 10/04/24 demonstrated, 1. 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 2. Remote punctate microhemorrhage in the right thalamus. 3. Mild parenchymal volume loss and chronic small vessel ischemic changes. -Dr. Dennison, ED physician, reviewed with neurology: stop ASA 325 qd; start ASA 81 mg qd; start clopidogrel 75 mg qd; monitor overnight; telemetry; ECHO; lipids; hemoglobin (has chronic erythrocytosis); HgA1C; hold anti-HTN meds to allow for permissive HTN with goal of SBP <180 mmHg . 10/05/24 worsening symptoms until MRI likely means expansion. blood pressure support (fluids, hold lisinopril) is very important. Patient was ready for discharge on 10/06. Follow-up arranged with Neurology, PCP, outpatient Occupational and Physical therapy. Discharge was Zio patch. Discharged on a baby aspirin, Plavix 75 mg and Lipitor 40 mg. Patient and his Cara have 6 adult children all in [place], 11 grandkids (2 grandkids in [place], 1 grandchild in [place] and everyone else is here in [place]). 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 Patient and Cara live in [place] on a larger property (5 acres), Pat does the riding porter head and patient does the weed trimming via driving around on the golf cart, holding the weed trimer off the side of the cart. They reside in a 2 story home and up until the stroke, patient has been Independent with all ADLs and IADLs. Since the stroke, patient has resumed ADLs independently but is requiring help with IADLs. Prior patient ambulated w/o a device, presently patient presents to the clinic using a FWW and reports noticeable weakness and leaning to the L side. Pt. accesses all 3 levels of his home daily to complete ADLs. New/Current Medical conditions directly related to this POC are: Ischemic Infarct to R anteromedial thalamus. Other pertinent co-morbidities, complexities, and conditions that may affect prognosis, intensity, frequency, and/or duration of therapy include but are not limited to: A-fib, L eye macular degeneration, Rib fx s/p fall on vanity in bathroom (recent), Urinary frequency, Hx of Vertigo and UTI's, Diabetes, Chronic R knee pain, Salivary gland tumor, Polycythemia, Rectosigmoid cancer, Hypertension, Gout, enlarged prostate, Calculus of kidney & Adverse effect of non- steroidal anti-inflammatory drug (NSAID). Occupational Therapy Treatment Plan - OP Potential Rehabilitation Good Potential Set Goals Goals Set with Yes Patient Goals Goals 1. Patient to demonstrate improvement in limits of stability in forward directions as evidenced by 25% improvement in functional reach score and decrease losses of balance and falls while engaging in activities that require reaching. 2. Patient will demonstrate a lower risk for falls as evident by a lower score on the Falls Self Efficacy Scale. 3. Patient will demonstrate stereognosis in left hand by identifying 10/10 functional objects without use of visual or auditory cues in order to retrain normalized sensory perception and hand function for dressing, bathing and home management tasks 4. With therapy intervention, patient will show improvement in more normalized tone, be able to inhibit primitive patterns of movement and facilitate automatic, voluntary reactions and subsequent normal movement patterns. 5. The patient will actively engage in Cognitive & Visual assessments to determine level of functional problem solving and safety awareness relative to discharge recommendations. 6. The patient will complete assessments relative to driving skills in order to give safe driving recommendations to patient/family and PCP. 7. Patient to improve activity tolerance to 10 minutes of continual standing without shortness of breath or self-reported muscle fatigue in order to perform IADLs. Treatment Plan Treatment Plan Evaluation,Joint Mobilization,Manual Therapy, Therapeutic Exercise,Therapeutic Activities,Self-Care/ Home Management,Education,Functional/Cognitive Skills, Neuromuscular Reeducation Expected Frequency 1-2x Week Expected Duration 12 weeks Certification Certification Statement I Certify That: Therapy Services Provided,Therapy Plan Established, Therapy Plan Reviewed Certification Information Clinic ID # [id number] Initial 10/10/24 Certification Date Recertification Due 01/08/25 Date Provider Signature Yes Required Provider Signature POC & Medical Necessity Shows Agreement With Physician NPI Number Write NPI# Here Physician Comment/ Comment or Changes Change Physician Signature Please Sign/Date Here & Date Requested
--- NOTE | 2024-10-18 14:16 | PT.OPE ---
PT [place] Outpatient Eval PT [facility] Outpatient Eval Start: 10/16/24 13:51 Freq: Status: Active Protocol: Document 10/16/24 13:52 BMS (Rec: 10/16/24 14:03 BMS [id number]) E-signed By Ruma Barrow PT Physical Therapy Outpatient Evaluation Insurance Information Recert Due Date 01/13/25 Medical Diagnosis ischemic stroke Treating Diagnosis abnormal gait dysmetria/discoordination falls weakness L UE LE Imaging Report CT performed without contrast 09/26/24 and 10/03/24 showed Information IMPRESSION: 1. No acute intracranial abnormality. 2. Normal brain parenchymal morphology. The CT 10/03/24 also noted in findings: Normal brain parenchymal morphology. Stable small focal low-attenuation change of the right thalamus consistent with an old lacunar infarct. MRI on 10/04/24 showed: 1. 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 2. Remote punctate microhemorrhage in the right thalamus. 3. Mild parenchymal volume loss and chronic small vessel ischemic changes. Referring MD Reed Wu MD Subjective Preferred Name Girish Subjective Tired all the time. R knee TKA has been strong but stiff, now not painful but feels like a band No explanation for why fluid on knee L knee real knee is getting bad and g gives out, physically gives out. It betrays me just since stroke balance is bad angel right after stroke fell to left fell x2 didn?t hit head fell on left alw reclined back and kick head to right bc neck is stiff and sore on the left headaches across forehead , get shot in eye macular degeneration L has had for couple years R eye caught early cleared up some of the double vision . Not dizzy, not lightheaded No numb and tingle, drag toes and stub toes on walker In/out car pretty good, 2 story house shower is in basement rail went ok. Shower in basement has handles small step to get in. 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 Bed mobility prob bc sore left ribs. 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 I10 - Essential (primary) hypertension (ICD-10) History of atrial fibrillation (Acute) -currently in sinus. no OAC. 10/06 discharged on Zio patch Z86.79 - Personal history of other diseases of the circulatory system (ICD-10) Diabetes (Acute) -A1C 6.5 -no meds -BMI 32 and now hx of CVA - role for a GLP-1 is indicated - follows with Dr. 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) - untreated REBECCA (obstructive sleep apnea) (Acute) - needs updated outpatient sleep study G47.33 - Obstructive sleep apnea (adult) Therapy Limitations/ Communication Ability,Affect,Vision Systems Review Objective Range of Motion cervical rotation R=60, L =45 L shoulder flex lacks 20-30 deg ER active L = 30, passive 65 IR behind back is limited to hip pocket on L Strength MMT seated shoulder L flex, abduct ER 3+/5 seated hip flex and 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 balance at FWW with feet 6 apart demo sway lateral and a/p which is exaggerated with even slow and static head turn. eyes closed and labile surface not tested this date. able to vary speed somewhat with cueing though seems impulsive and mostly focused on awareness of environment and obstacles instead. Posture leans to left in chair states he tilts head to right to compensate for neck pain, wide base seated in chair. standing posture uncertain with hip and knee flex, held in low guard position leaning heavily on walker initially. did adj height of FWW which helped some. Other/Pertinent nose to finger x 5 smooth and confident R (dominant), Objective left slow and dysmetric with significant concnetratino smooth pursuits impaired with slip off target angel with cross midline. 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 difference in appearance of eye orbs with more prominence and almost glassy look with left eye, also noted dec coordination on L slowed response and delayed activvatio compared to R. Functional Test 5x sit to stand 14 sec w 1 LOB posterior with plop upon Performed & Score lowering to chair indicating deficient eccentric control Activities-specific Balance Confidence (ABC) Scale Summary 1. Walk around the house? Confidence walking around the house: 50 / 100 (50 points) 2. Walk up or down stairs? Confidence walking up or down stairs: 80 / 100 (80 points) 3. Bend over and milk pickup driver a slipper from the front of a closet floor? Confidence bending over (e.g. to milk pickup driver slipper): 50 / 100 (50 points) 4. Reach for a small can off a shelf at eye level? Confidence reaching for a can at eye level: 50 / 100 (50 points) 5. Stand on your tip toes and reach for something above your head? Confidence standing on tip toes, reaching above head: 10 / 100 (10 points) 6. Stand on a chair and reach for something? Confidence standing on a chair and reachin / 100 (20 points) 7. Sweep the floor? Confidence sweeping the floor: 10 / 100 (10 points) 8. Walk outside the house to a car parked in the driveway? Confidence walking outside home to car in driveway: 20 / 100 (20 points) 9. Get into or out of a car? Confidence getting into or out of car: 50 / 100 (50 points) 10. Walk across a parking lot to the mall? Confidence walking across parking lot to mall: 50 / 100 (50 points) 11. Walk up or down a ramp? Confidence walking down a ramp: 50 / 100 (50 points) 12. Walk in a crowded mall where people rapidly walk past you? Confidence walking in crowded mall with people walking rapidly: 20 / 100 (20 points) 13. Are bumped into by people as you walk through the mall? Confidence when bumped into by people walking at mall: 20 / 100 (20 points) 14. Step onto or off of an escalator while you are holding onto a railing? Confidence stepping on or off escalator holding railing : 20 / 100 (20 points) 15. Step on/off escalator holding parcels so cannot hold railing? Confidence stepping on or off escalator not holding railing : 20 / 100 (20 points) 16. Walk outside on icy sidewalks? Confidence walking on icy sidewalks: 30 / 100 (30 points) The tools listed on this website do not substitute for the informed opinion of a licensed physician or other health care provider. All scores should be re-checked. Please see our full Terms of Use. Total ABC score: 550/1600=34.4 percent. Assessment Assessment/ Patient is pleasant 79 yo male accompanied by Pat Impression s/p ischemic stroke. They have each been patient here prior and are familiar with our clinic. He presents today after an unfortunate few weeks - he reprots sudden onset of vertigo on 09/25/24 (described not as vertigo but imbalance). This persisted. He was assessed at [facility] ED, 09/30/24 in clinic, returned to ED 10/03/14, 10/04/24 in clinic then was advised to return to ED. CT performed sithout contrast 09/26/24 and 10/03/24 showed IMPRESSION: 1. No acute intracranial abnormality. 2. Normal brain parenchymal morphology. The CT 10/03/24 also noted in findings: Normal brain parenchymal morphology. Stable small focal low- attenuation change of the right thalamus consistent with an old lacunar infarct. MRI on 10/04/24 showed: 1. 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 2. Remote punctate microhemorrhage in the right thalamus. 3. Mild parenchymal volume loss and chronic small vessel ischemic changes. He was hospitalized at [facility] 10/04/24-10/06/24. ON 10/13/24 he returned to ED with new onset L shoulder and neck pain. It was deemed unlikely to be cardiac in nature, patient did go home with Zio patch. He has hx of A-fib x 1 during a procedure, has hx of polycythemia and obstructive sleep apnea for which he does not currently utilize CPAP due to his father's difficulties with same. He did serve in and several times expresses great gratitude for Dr Wu's directness and approach. This therapist also appreciates the very detailed instructions patient and received regarding BP monitoring and medication regulation as this gave them a feeling of some control over situation. He is quite verbose this day despite frequent redirection, does appear to have difficulty with visuovestibular, coordination on L, foot drag and altered gait, balance impairment and high fall risk as noted has had 2 falls since 09/26/24. He does now use FWW unless a few steps in house and endorses he does kick it at times bc foot isnt where he expects it to be. Patient and live in two story home, with stall shower in basement w hand rails and small ledge to step over (flight of stairs with rail), lives on 5 [address] property with uneven ground . He was previously independent with all ADLS, IADLs, gait transfers and driving. He is missing driving. 6 Children and many grandchildren live in the area. Pt reports ~ 34% confidence with activities listed on ABC and primary goals revolve around ambulation, balance, and return to prior function. Past medical hx + for: hx 1x Afib, B wet macular degeneration though R eye injection has helped recent decline in vision on that side, does receive monthly injections for macular degen in L eye. wears glasses. bruise and L rib pain after 'graceful fall to side' in bathroom striking ribs on vanity, hx chronic R knee pain and edema (needs to be drained again per patient), urinary frequency, diabetes, salivary gland tumor, polycythemia (is not currently treating this), rectosigmoid cancer, HTN, gout, enlarged prostate, kidney stones. Patient is very willing to participate and was issued home program. all gait and balance performed with gait belt and SBA ot mod assist by therapist for safety. attention limited, requires focus LE, U E attention Coordination. Dysmetria noted both LE and UE. More visits may be required due to complexity of medical situation and impulsivity limiting some home exercise assignment as well as lack of full understanding of degree of impairment. Primary Functional floor transfers, gait safety and balance, lists to L Limitations side, weakness, LE drag, steps /curb/ stairs Plan of Care Rehabilitation Good Potential Physical Therapy Pt demo independence with home program individually Goals designed to improve functional strength, gait, balance and daily tasks Pt demo independence with all bed mobility including in /out of bed with modifications prn. Pt demo ability to safely turn on command and follow 2- 3 step commands for onboarding more of home chores. Pt demo ability to walk up to 1 miles per day for management of chronic medical conditions and functional strength (with least resistive safest gait aid and no LOB) and fitness to reduce effects of other health concerns. Patient to report no falls in 60 day period. Pt demo modified independent floor transfer for fall recovery with minimal assist/cueing Patient demo safe and effective management of uneven surfaces, stepping stones, hurdles and curb/ stair to maximize safe independence in community and home. Coordination/ Referral Source,Patient Caregiver Communication With Treatment Plan/ Electrical Stimulation,Gait Training,Ice/Cold/ Direct Interventions Vasopneumatic,Joint Mobilization,Manual Therapy, Neuromuscular Re-ed,Orthotics/Braces,Self-Care/Home Management,Therapeutic Activities,Therapeutic Exercises Frequency/Duration 1-2x/ week x 20 visists Patient Will Be Completion of LTG(s),Skills Plateau,Independent w/HEP, Discharged From Independently Progressing Therapy Evaluation Billing Untimed Code 35 Treatment Minutes PT Eval No Charge No Complexity Moderate Certification Information Initial 10/16/24 Certification Date Ending Certification 01/13/25 Date Provider Signature Yes Required Provider Signature POC & Medical Necessity Shows Agreement With Physician NPI Number Write NPI# Here Physician Comment/ : Change Physician Signature Please Sign/Date Here & Date Requested
== END 2025-04-18 23:59 | disposition home or self-care (01) ==
PROVIDERS: PCP Family Medicine; Visit Provider Family Medicine
DX: I63.9 Cerebral infarction, unspecified (principal); Z51.89 Encounter for other specified aftercare
CPT/HCPCS: 97110; 97112; 97116; 97162; 97166; 97535; X5282

== ENCOUNTER 2025-01-15 20:11 | Outpatient (CLI) | payer OTHER, SELFPAY ==
--- NOTE | 2025-01-21 12:17 | P.SLS_ITS ---
Sleep Study Details Details Interpreting Provider: Johanny Date of Sleep Study: 01/15/25 Sleep Study Details: STUDY TYPE:? Hospital-based, attended, CPAP titration ? BMI:? Not recorded ORDERING PROVIDER:? Johanny INDICATION:? Significant hypo oxygenation noted on initial sleep study ? SLEEP SUMMARY:? 241 minutes total sleep time RESPIRATORY SUMMARY:? Mean oxygen awake 90 asleep 90 minimum 85. 3.4 minutes oxygen between 80 and 88% Overall AHI for this study is 2 per CMS guideline The patient was titrated with CPAP starting at a pressure of 5 and going up to 12 patient did well at all pressures with the exception of 10. Pressures from 7-12 all included REM sleep although not in the supine position. There were no central apneas noted during the titration PERIODIC LIMB MOVEMENTS OF SLEEP:? Index 31.1, index with arousal 1.2 CARDIAC:? Awake 80, asleep 73. No arrhythmias noted IMPRESSION:? Obstructive sleep apnea, hypo oxygenation. The hypo oxygenation appeared to be mostly corrected by the use of CPAP and this would be considered a successful titration study. RECOMMENDATION: Recommend AutoSet CPAP at a pressure of 5-15 with close follow- up.
== END 2025-01-15 20:12 | disposition home or self-care (01) ==
LOC: SLEEP 20:12
PROVIDERS: PCP Family Medicine; Visit Provider Family Medicine
DX: G47.33 Obstructive sleep apnea (adult) (pediatric) (principal)
CPT/HCPCS: 95811

== ENCOUNTER 2025-02-12 11:04 | Emergency (ER) | payer OTHER, SELFPAY ==
--- OUTSIDE RECORDS SUMMARY | 2025-01-27 11:00 | XMS_ITS | Encounter Summary ---
Author Organization [facility] Address [address] [place] [address] Care Team Providers Care Proof Technician Helper Name Role Phone Kristine Brown MD Primary Care Provider Encounter Details Date Type Department Care Team (Latest Contact Info) Description 01/27/2025 11:00 AM CDT Office Visit Ophthalmology at [facility] 401 [facility] 401 [facility]. [place], [place] [phone] Iraj Garcia MD [address] [place] [phone] 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 right eye [...] injection. If this occurs, you may use vkim-gbq-hnbgfgu tear dropsor ointment from a pharmacy to provide some relief of symptoms. However, you SHOULD NOT experience symptoms of SIGNIFICANT PAIN, HEADACHE, LIGHT SENSITIVITY, or SUDDEN CHANGES IN VISION following an injection, especially occurring a day or more following the procedure. If any of these occur, call the CARELINE immediately at and ask to speak with the doctor production sanitizer. These can be signs of a potentially [...] 10/2023)* Eye Med/Surg History: pcIOL OU (11/2023, [facility]) Relevant Medical History: Hypertension CVA 09/2024 Glaucoma [...] st Contact Info) Description 03/28/2025 10:15 AM FULL FASHIONED GARMENT KNITTER Appointment Ophthalmology at [address] [place] [address] Iraj Garcia MD [address] [place] [address] 08/01/2025 10:00 AM CDT Appointment Ophthalmology at [place] [id number] [place] [address] 08/01/2025 10:30 AM CDT Appointment Ophthalmology at [facility] [address] [place] [phone] Juaquin Meyer MD [address] [place] [address] documented as of this encounter Procedures Procedure [...] MG/0.05ML Route: Intravitreal, Site: Right Eye NDC: 06177-990-15, Lot: [id number], Expiration date: 01/22/2026, Waste: 0 mL Left Eye 01/27/2025. 12:10 PM. Confirmed correct patient, procedure, site, and patient consented. Injection: 2 mg aflibercept 2 MG/0.05ML Route: Intravitreal, Site: Left Eye NDC: 94234-426-90, Lot: [id number], Expiration date: 01/22/2026, Waste: 0 mL Iraj [...] Eye documented in this encounter Care Teams Proof Technician Helper Relationship Specialty [place] [address] [place] [address] PCP - General Family Practice 03/25/13 documented as of this encounter
--- OUTSIDE RECORDS SUMMARY | 2025-01-29 09:45 | XMS_ITS | Encounter Summary ---
Author Organization [facility] Address [address] [place] [address] Care Team Providers Care Child Care Lead Teacher Name Role Phone Kristine Brown MD Primary Care Provider [phone] Encounter Details Date Type Department Care Team (Latest Contact Info) Description 01/29/2025 9:45 AM CDT Office Visit Ophthalmology at [place] [id number] [place] [address] Juaquin Meyer MD [address] [place] [address] Glaucoma suspect of both eyes (Primary [...] in this encounter Progress Notes * Juaquin Meyer MD - 01/29/2025 9:45 AM CDT Last saw this provider 12/18/2024 Armen Crump is a 80 y.o. male here for his 5 week follow-up Glaucoma suspect. Eye drops: tolerating drops well. Overall vision is worse for the intermittent distance. Patient had a an Eylea injection 2 days ago. Glaucoma Medications: Latanoprost QHS OU LD: 950 pm Other Eye Medications: none CTA head 10/13/24 ([facility]) Radiologist impression: No aneurysm is identified. No large vessel occlusion. No acute intracranialabnormality at CTA. MRI brain 10/04/24 ([facility]): Radiologist impression: Acute ischemic infarcts in the [...] Outside records obtained showing CTA head from [place], impression reads no acute findings andno aneurysm. Also obtained MRI brain from [place] showing ischemic infarcts as above as the [...] st Contact Info) Description 03/28/2025 10:15 AM LUBE MAN Appointment Ophthalmology at [address] [place] [address] Iraj Garcia MD [address] [place] [address] 08/01/2025 10:00 AM CDT Appointment Ophthalmology at [address] [address] 08/01/2025 10:30 AM CDT Appointment Ophthalmology at [facility] [address] [place] [phone] Juaquin Meyer MD [address] [place] [address] documented as of this encounter Visit Diagnoses Diagnosis Glaucoma suspect of both eyes- Primary Preglaucoma, unspecified Pseudophakia Lens replaced by other means documented in this encounter Care Teams Child Care Lead Teacher Relationship Specialty [place] [address] [place] [address] PCP - General Family Practice 03/25/13 documented as of this encounter
--- OUTSIDE RECORDS SUMMARY | 2025-02-12 11:08 | XMS_ITS | Patient Health Record ---
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
[2025-02-12 11:12] VITALS: BP 164/133; PULSE 118; RESP 20; TEMP 36.8; O2SAT 93; BMI 35.1
--- NOTE | 2025-02-12 11:24 | ED_ITS ---
HPI - Abdominal Pain General Time Seen by Provider: 11:26 Date Seen: 02/12/25 Chief Complaint: Abdominal Pain Stated Complaint: Lower abdominal pain, difficulty urinating Time Seen by Provider: 02/12/25 11:23 Source: patient, RN notes reviewed and old records reviewed Mode of arrival: ambulatory Limitations: no limitations History of Present Illness HPI narrative: This 80-year-old male is coming in with urinary issues. He has been having difficulty since yesterday morning. He believes that was last time he urinated with some proficiency. He has had a little dribbling, feels lower abdominal pressure and pelvic pain. He has pain in his rectal area and into the pelvic area and testicles with sitting, a pressure sensation. He also notes some constipation and urinary frequency over the last 2 weeks. He did have a small hard bowel movement yesterday. He is not aware of any fevers or chills. No nausea or vomiting. He has a history of elevated PSA and prostate enlargement, he had been referred to Urology by his primary before but he states he did not follow through. He did call the clinic today and they did advise him to come here. Nursing staff did attempt to collect urinalysis in triage, patient was unable to urinate. Bladder scan was subsequently done and he had 650-750 on the bladder scan. We did order Michaud catheter placement which was being done when I came in to see the patient. 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 He had robotic assisted lower anterior rese ction of rectosigmoid. He follows with Dr. Kamboj. TREVIZO elicited complaint: abdominal pain Related Data Home Medications ?Medication ?Instructions ?Recorded ?Confirmed acetaminophen 325 mg tablet 650 mg PO Q6H PRN 05/09/22 02/12/25 (Tylenol) aflibercept 2 mg/0.05 mL 2 mg intravitreal Q60D 05/2202/12/25 intravitreal solution for injection (Eylea) naproxen sodium 220 mg capsule 440 mg PO BID PRN 01/0702/12/25 (Aleve) blood-glucose meter (Accu-Chek #1 ea 10/10/24 01/23/25 Guide Glucose Meter) lancets (Accu-Chek Softclix #100 ea 10/10/24 01/23/25 Lancets) Previous Rx's ?Medication ?Instructions ?Recorded aspirin 81 mg chewable tablet 81 mg PO DAILY #90 tabs 10/06/24 (Children's Aspirin) coenzyme Q10 200 mg capsule 200 mg PO QDAY #90 caps lovastatin 20 mg tablet 20 mg PO QPM #90 tabs lisinopril 10 mg tablet 5 - 10 mg (0.5 - 1 x 10 mg) PO 01/27/25 QDAY #90 tabs Allergies Allergy/AdvReac Type Severity Reaction Status Date / Time oxycodone Allergy Intermediate Unknown Verified 02/12/25 11:31 ciprofloxacin AdvReac Intermediate rash Verified 02/12/25 11:31 hydrochlorothiazide AdvReac Intermediate Gout Verified 02/12/25 11:31 exacerbation metoprolol AdvReac Intermediate Verified 02/12/25 11:31 cefadroxil AdvReac GI Verified 02/12/25 11:31 upset/bloody stools Review of Systems Status of ROS Reports: 6 or more systems reviewed and unremarkable except as noted in History and below [facility] Medical History 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 neoplasm of rectosigmoid junction (ICD-10) Medicare annual wellness visit, subsequent ?Z00.00 - Encounter for general adult medical examination without abnormal findings (ICD-10) Vertigo ?R42 - Dizziness and giddiness (ICD-10) Urinary frequency ?R35.0 - Frequency of micturition (ICD-10) Urinary tract infection ?N39.0 - Urinary tract infection, site not specified (ICD-10) 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 - Other diseases of salivary glands (ICD-10) Adverse effect of non-steroidal anti-inflammatory drug (NSAID) ?T39.395A - Adverse effect of other nonsteroidal anti-inflammatory drugs [NSAID], initial encounter (ICD-10) Calculus of kidney ?N20.0 - Calculus of kidney (ICD-10) Enlarged prostate ?N40.0 - Benign prostatic hyperplasia without lower urinary tract symptoms (ICD-10) Gout ?M10.9 - Gout, unspecified (ICD-10) Hypertension ?I10 - Essential (primary) hypertension (ICD-10) Atrial fibrillation ?I48.91 - Unspecified atrial fibrillation (ICD-10) Polycythemia ?D75.1 - Secondary polycythemia (ICD-10) Reoccurring knee pain ?M25.569 - Pain in unspecified knee (ICD-10) 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 (ICD-10) Diabetes ?E11.9 - Type 2 diabetes mellitus without complications (ICD-10) Pre-procedure lab exam ?Z01.812 - Encounter for preprocedural laboratory examination (ICD-10) Elevated PSA measurement ?R97.20 - Elevated prostate specific antigen [PSA] (ICD-10) History of agent [place] exposure ?Z77.098 - Contact with and (suspected) exposure to other hazardous, chiefly nonmedicinal, chemicals (ICD-10) Surgical History Status post knee replacement (~01/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) ?Z96.659 - Presence of unspecified artificial knee joint (ICD-10) Social History What is your current living situation?: I presently have a place to live Problems where you live: no known problems Problems where you live details: [facility] In the past 12 months, utilities in danger of being shut off: no In past 12 months, lack of transportation kept you from medical appts, meetings, work, or getting things needed for daily living: no In the past 12 mos, have been you worried that your food would run out before you had money to buy more?: never true In the past 12 mos, the food you bought just didn't last and you didn't have money to buy more?: never true Highest level of school completed/degree received: high school graduate Smoking Status: Former smoker Do you use any of these nicotine containing products: None Second hand tobacco smoke exposure: No How often do you have a drink containing alcohol: 2-3 times a week Alcohol type: hard liquor How many standard drinks containing alcohol do you have on a typical day: 1 or 2 How often do you have six or more drinks on one occasion: Never AUDIT-C Alcohol total score: 3 Non-prescribed substance use: denies use Caffeine: Yes (3-4 cups daily) How often does anyone, including family, friends and others, physically hurt you : never How often does anyone, including family, friends and others, insult or talk down to you: never How often does anyone, including family, friends and others, threaten you with harm: never How often does anyone, including family, friends and others, scream or curse at you: never service: Yes Exam Const: Vital Signs, click to edit/add: Vital Signs - 24 hr 02/12/25 11:12 Temperature 98.2 F Pulse Rate [Pulse Oximeter] 118 H Respiratory Rate 20 Blood Pressure [Ri ght Upper Arm] 164/133 H Pulse Oximetry 93 Oxygen Delivery Me thod Room Air This 80-year-old male is very talkative, ambulatory into the ED of his own accord. Bladder scan did show urinary retention, Michaud catheter was subsequently placed, urine is currently draining, will see how much he has out initially. Sclera clear, talkative, speech normal. Lungs clear, good air entry, no wheezing or crackles, no tachypnea, no accessory muscle use. CV regular rate and rhythm, no murmur. Abdomen is currently soft, nontender, nondistended, no organomegaly, rebound or guarding at this time. Michaud catheter in place draining light yellow but clear looking urine. Normal testes, normal circumcised penis. Documenting provider has reviewed patient's vital signs: yes Course Course ED Course: Will do abdominal x-ray on this patient to see stool burden. Patient and I did discuss that you can see constipation with urinary retention. Will also check urinalysis to ensure no infection but it is very likely that his urinary retention is from prostate hypertrophy. Have reviewed with him that he will need to get a Urology referral from his primary. Reevaluation(s) Time of Reevaluation #1: 12:44 Reevaluation #1: Have reviewed with patient the x-ray images do show constipation but no obstruc tion. He is agreeable to [facility]. Will see if we can reduce some of the stool burden in help him start going. He has had about 800 mL of urine out. He feels much better with the resolution of the urinary obstruction. We did review that he is very likely to discharge to home today. Time of Reevaluation #2: 13:45 Reevaluation #2: Nursing staff reports patient had success with a large bowel movement and is requesting to leave. Will discharge to home at this time. Vital Signs Vital signs: Initial Vital Signs Temperature 98.2 F 02/12/25 11:12 Temperature Source Temporal Artery Scan 02/12/25 11:12 Pulse Rate 118 H 02/12/25 11:12 Respiratory Rate 20 02/12/25 11:12 Blood Pressure 164/133 H 02/12/25 11:12 Blood Pressure Mean 143 H 02/12/25 11:12 Blood Pressure Position Semi-Fowlers 02/12/25 11:12 Pulse Oximetry 93 02/12/25 11:12 Oxygen Delivery Method Room Air 02/12/25 11:12 Vital Signs Temperature 98.2 F 02/12/25 11:12 Pulse Rate 118 H 02/12/25 11:12 Respiratory Rate 20 02/12/25 11:12 Blood Pressure 164/133 H 02/12/25 11:12 Pulse Oximetry 93 02/12/25 11:12 Oxygen Delivery Method Room Air 02/12/25 11:12 Temperature 98.2 F 02/12/25 11:12 Pulse Rate 118 H 02/12/25 11:12 Respiratory Rate 20 02/12/25 11:12 Blood Pressure 164/133 H 02/12/25 11:12 Pulse Oximetry 93 02/12/25 11:12 Oxygen Delivery Method Room Air 02/12/25 11:12 Medications Administered Medications: Discontinued Medications Generic Name Dose Route Start Last Admin Trade Name Freq PRN Reason Stop Dose Admin Docusate Sodium/Benzocaine 5 ml 02/12/25 12:47 02/12/25 13:18 Docusate Sodium/Benzocaine 5 Ml Enema OR 02/12/25 12:48 5 ml ONCE ONE Administration MDM - Abdominal Pain Lab Data Attestation: I reviewed the patient's lab results. Labs: Lab Results 02/12/25 Range/Units 11:13 Urine Color Yellow (Yellow) Urine Appearance Clear (Clear) Urine pH 6.0 (5.0-8.5) Ur Specific [place] 1.015 (1.000-1.030) Urine Protein 2+ A (Negative) Urine Glucose (UA) Negative (Negative) Urine Ketones Negative (Negative) Urine Blood 2+ A (Negative) Urine Nitrite Negative (Negative) Urine Bilirubin Negative (Negative) Urine Urobilinogen 0.2 (0.2-1.0) Ur Leukocyte Esterase Negative (Negative) Urine RBC 10-25 A (0-2) Urine WBC 0-2 (0-5) Ur Squamous Epith Cells None (None-Few) Urine Bacteria None (None) Imaging Data Abdominal x-ray: Attestation: I have reviewed the pertinent imaging results. My impression: Have reviewed imaging, see stool throughout the colon but no obstructive bowel pattern. Await Radiology over-read. Radiologist's impression: Patient: HARPER IQBAL Facility:?[facility] Patient ID:?[id number] Site Patient ID:?[id number]. Site :?[id number] Study:?XRay-Abdomen/Pelvis -02/12/2025 12:31:01 PM Ordering Physician:Cristy Holland Final Report: INDICATION: Abdominal pain. TECHNIQUE: Abdomen four views. COMPARISON: CT abdomen and pelvis of 3025. FINDINGS: Bowel-gas pattern is nonobstructive. Fecal loading of the proximal colon. Possible distal left ureteral and/or bladder stones again demonstrated. Soft tissues elsewhere as imaged are unremarkable. Degenerative changes spine and pelvis. IMPRESSION: 1. Fecal loading of the colon. 2. Left bladder or distal ureteral urolithiasis, as before. Dictated by Naseem Aquino MD @ 02/12/2025 12:41:15 PM (Electronic Signature) Discharge Plan Discharge Clinical Impression: Acute urinary obstruction Constipation Qualifiers: Constipation type: unspecified constipation type Qualified Code(s): K59.00 - Constipation, unspecified Patient Disposition: Home, Self-Care Condition: Stable Instructions: Constipation (ED), High Fiber Diet (ED), Michaud Catheter Placement and Care (ED) Additional Instructions: Need to call clinic and get an appointment with Dr. Dowling as soon as possible. He will need to do a urology referral. You will need to see Urology for further management of your prostate hypertrophy causing the bladder outlet obstruction. You need to leave the catheter in place. Catheters or typically replaced monthly and you may need the catheter replaced before you see Urology. Urology typically has a wait to be seen but your clinic can help you with this. For the constipation, recommend starting MiraLax, take a capful daily. You may need to reduce this to half capful or use every other day depending on your bowel response. The goal is to have a formed but soft bowel movement daily. If the full capful does transition you into diarrhea, back off the amount of MiraLax. You can talk to your primary care provider about this further as well. Activity Level: Activity as Tolerated Prescriptions: No Action naproxen sodium [Aleve] 220 mg capsule 440 mg PO BID PRN (DME) blood-glucose meter [Accu-Chek Guide Glucose Meter] Misc See Rx Instructions .ROUTE DIRECTED Qty: 1 Rx Instructions: As directed (DME) lancets [Accu-Chek Softclix Lancets] Misc See Rx Instructions .ROUTE BID Qty: 100 Rx Instructions: As directed lovastatin 20 mg tablet 20 mg PO QPM Qty: 90 1RF coenzyme Q10 200 mg capsule 200 mg PO QDAY Qty: 90 3RF acetaminophen [Tylenol] 325 mg tablet 650 mg PO Q6H PRN Eylea 2 mg/0.05 mL solution 2 mg intravitreal Q60D aspirin [Children's Aspirin] 81 mg Tablet,Chewable 81 mg PO DAILY Qty: 90 0RF lisinopril 10 mg tablet 5 - 10 mg PO QDAY Qty: 90 0RF Follow Up/Referrals: Miguel Dowling MD [Primary Care Provider, Family Practice] Stand Alone Forms: MyHealth Info Instructions
[2025-02-12 11:51] LABS: Appearance Urine Clear (Clear)
--- NOTE | 2025-02-12 11:53 | CRLHL7_ITS ---
For Patients: As a result of the Century Cures Act, medical imaging exams and procedure reports are released immediately into your electronic medical record. You may view this report before your referring provider. If you have questions, please contact your health care provider. INDICATION: Abdominal pain. TECHNIQUE: Abdomen four views. COMPARISON: CT abdomen and pelvis of 3024. FINDINGS: Bowel-gas pattern is nonobstructive. Fecal loading of the proximal colon. Possible distal left ureteral and/or bladder stones again demonstrated. Soft tissues elsewhere as imaged are unremarkable. Degenerative changes spine and pelvis. IMPRESSION: 1. Fecal loading of the colon. 2. Left bladder or distal ureteral urolithiasis, as before. Dictated by Naseem Aquino MD @ 02/12/2025 12:41:15 PM (Electronically Signed)
--- OUTSIDE RECORDS SUMMARY | 2025-02-12 11:59 | XMS_ITS | Encounter Summary ---
Author Organization [facility] Address [address] [place] [address] Care Team Providers Care Real Estate Clerk Name Role Phone Kristine Brown MD Primary Care Provider [phone] Reason for Visit * Reason Comments EMPF UL [place] Fell Off Encounter Details Date Type Department Care Team (Late st Contact Info) Description 10/08/2024 Telephone [facility] Unassigned, Provider [address] [place] [address] EMPF (UL [place] Fell Off/) Social History Tobacco Use Types [...] Encounters Date Type Department Care Team (Late Contact Info) Description 03/28/2025 10:15 AM CABIN MAN Appointment Ophthalmology at [address] [place] [address] Iraj Garcia MD [address] [place] [phone] 08/01/2025 10:00 AM CDT Appointment Ophthalmology at [facility] [address] [place] [phone] 08/01/2025 10:30 AM CDT Appointment Ophthalmology at [facility] [address] [place] [phone] Juaquin Meyer MD [address] [place] [phone] documented as of this encounter Visit Diagnoses Not on filedocumented in this encounter Care Teams Real Estate Clerk Relationship Specialty [place] [address] [place], [place] [phone] PCP - General Family Practice 03/25/13 documented as of this encounter
--- OUTSIDE RECORDS SUMMARY | 2025-02-12 11:59 | XMS_ITS | Clinical Summary ---
Author Organization [facility] Address [address] [place] [address] Care Team Providers Care Loading Machine Adjuster Name Role Phone Unavailable Primary Care Provider Unavailabl e Source Comments Patient records contain information from all sites at [facility]. For routine questions regarding patient records, call [phone] during business hours, M-F 8:00 AM - 5:00 PM Central Time. Record requests for emergency care only can be directed to [phone] at any time.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 Gender Identity Not on file Sexual Orientation Not on file Plan of Treatment Health Maintenance Due Date Last Done Comments Hepatitis C Screening 1945 Zoster Vaccines (2 of 3) 02/03/2016 12/09/2015 RSV vaccine - (32-3 6 weeks) or 50+ years (1 - 1-dose 75+ series) 2022 Depression Screening (Annual PHQ-2) 04/24/2024 Fall Risk Screen (Annual) 04/24/2024 COVID-19 Vaccine (3 - 2024-2 6 season) 2024 06/22/2020, 05/29/2020 Influenza Vaccine (#1) 2024 , 01/23/2016 DTaP,Tdap,and Td Vaccines (3 - Td or Tdap) 03/06/2028 03/06/2018, 11/30/2012 Pneumococcal vaccine (50+ years) Completed 01/07/2021, 03/06/2018, 12/09/2015 IPV Vaccines Aged Out No longer eligi ble based on patient's age to complete this topic [email or web address]
--- OUTSIDE RECORDS SUMMARY | 2025-02-12 11:59 | XMS_ITS | Encounter Summary ---
Author Organization [facility] Address [address], [place] [address] Care Team Providers Care Accessories Repairer Name Role Phone Kristine Brown MD Primary Care Provider Encounter Details Date Type Department Care Team (Late st Contact Info) Description 04/18/2016 Refill Order [facility] [address] [place], [place] [phone] [place] [address] [place], [place] [phone] Social History Tobacco Use Types Packs/Day Years [...] notified. Charlene Ortega CMA 05/05/2016, 6:11 PM SPECIALIST documented in this encounter Plan of Treatment Upcoming Encounters Date Type Department Care Team (Late st Contact Info) Description 03/28/2025 10:15 AM IMCU SPECIALIST Appointment Ophthalmology at [address] [place] [address] Iraj Garcia MD [address] [place] [phone] 08/01/2025 10:00 AM CDT Appointment Ophthalmology at [facility] [address] [place] [phone] 08/01/2025 10:30 AM CDT Appointment Ophthalmology at [facility] [address] [place] [phone] Juaquin Meyer MD [address] [place] [address] documented as of this encounter Visit Diagnoses Diagnosis Encounter for long-term (current) use of medications- Primary Encounter for long-term (current) use of other medications documented in this encounter Care Teams Accessories Repairer Relationship Specialty [place] [address] [place], [place] [phone] PCP - General Family Practice 03/25/13 documented as of this encounter
--- OUTSIDE RECORDS SUMMARY | 2025-02-12 11:59 | XMS_ITS | Clinical Summary ---
Author Organization [facility] Address [address], [place] [address] Care Team Providers Care Grapple Skidder Operator Name Role Phone Kristine Brown MD Primary Care Provider [phone] Source Comments You are receiving this document as you are listed as the primary care provider,follow-up provider, or the patient has been referred to you for consultation.This is in compliance with the Medicare andRegional Medical Centercaid EHR Incentive Program,which states Providers who transition their patient to another setting of careor provider of care or refers their patient to another provider of care shouldprovide summary care record for each transition of care or referral. [email or web address] Allergies Active Allergy Reactions Criticality Noted Date Comments Cefadroxil Other, see comments 06/02/2021 Bloody diarrhea Oxycodone Other, see comments 11/09/2011 Patient refuses to take it due to family addiction issues. Medications Multiple Vitamins-Iron (MULTIVITAMIN/ IRON OR) Active amLODIPine (NORVASC) 10 MG tablet Take 1 Tab by mouth daily. 90 Tab 3 11/08/19 17 Active allopurinol (ZYLOPRIM) 300 MG tablet Take 1 Tab by mouth daily. 90 Tab 3 01/26/20 17 Active predniSONE (DELTASONE) 5 MG tablet TAKE ONE TABLET BY MOUTH EVERY DAY 90 Tab 1 02/28/20 17 Active Additional Information Patient not taking.Reported on 07/12/2017 lisinopril (ZESTRIL) 40 MG tablet TAKE 1 TABLET BY MOUTH DAILY. 90 Tab 08/19/19 18 Active tamsulosin (FLOMAX) 0.4 MG CAPS capsule 11/26/19 Active amoxicillin (AMOXIL) 500 MG capsule Take 2 Capsules (1,000 mg) by mouth two times a day. 02/11/20 Active GAVILYTE-G 236 g oral solution Take by mouth. 01/16/20 22 Active allopurinol (ZYLOPRIM) 300 MG tablet Take 1 Tablet (300 mg) by mouth daily. Active amLODIPine (NORVASC) 10 MG tablet Take 1 Tablet (10 mg) by mouth daily. Active latanoprost (XALATAN) 0.005 % eye drop solutionIndica tions:Glaucoma suspect of both eyes Place 1 Drop into both eyes daily at bedtime. 7.5 mL 12 01/30/20 25 Active latanoprost (XALATAN) 0.005 % eye drop solutionIndica tions:Glaucoma suspect of both eyes Place 1 Drop into both eyes daily at bedtime. 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 [address] Iraj Garcia MD Wet age-related macular degeneration [...] CDT Respiratory Rate 14 05/19/2016 9:41 AM DUST BOX WORKER Oxygen Saturation - - Inhaled Oxygen Concentration - - Weight 108 kg (238 lb) 07/26/2017 8:48 AM CDT Height 182.9 cm (6') 2017 2:30 PM CDT Body Mass Index 32.28 2017 2:30 PM CDT Plan of Treatment Upcoming Encounters Date Type Department Care Team (Late st Contact Info) Description 03/28/2025 10:15 AM DUST BOX WORKER Appointment Ophthalmology at [address] [place] [address] Iraj Garcia MD [address] [place] [address] 08/01/2025 10:00 AM CDT Appointment Ophthalmology at [address] [phone] 08/01/2025 10:30 AM CDT Appointment Ophthalmology at [address] [phone] Juaquin Meyer MD [address] [place] [address] Health Maintenance Due Date Last Done Comments Hep C Screening (Preventive Services) 1945 Zoster/Shingles Vaccine (2 o f 3) 02/03/2016 12/09/2015 RSV Vaccine (1 - 1-dose 75+ series) 2022 Medicare Annual Wellness Visit 04/24/2024 COVID-19 Vaccine (3 - 2024-2 6 season) 2024 06/22/2020, 05/29/2020 DTaP/Tdap/Td Vaccine (3 - Tdap) 03/06/2028 03/06/2018, 11/30/2012 Cholesterol Discontinued 01/30/2015, 11/19/2012 Pneumococcal Vaccine 50+ Yrs Completed , 03/06/2018, 12/09/2015 Influenza Vaccine Completed 01/14/2025, 02/25/2022, 01/23/2016 HepA Vaccine Aged Out No longer eligi [...] left eye with active choroidal neovascularization (HRC) INTRAVITREAL INJECTION PHARMACOLOGIC AGENT OD RIGHT EYE Routine 12/04/2024 11:35 AM CDT 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 12:10 PM. Confirmed correct patient, procedure, site, and patient consented. Injection: 2 mg aflibercept 2 MG/0.05ML Route: Intravitreal, Site: Right Eye NDC: 62253-098-04, Lot: [id number], Expiration date: 01/22/2026, Waste: 0 mL Left Eye 01/27/2025. 12:10 PM. Confirmed correct patient, procedure, site, and patient consented. Injection: 2 mg aflibercept 2 MG/0.05ML Route: Intravitreal, Site: Left Eye NDC: 41622-190-13, Lot: [id number], Expiration date: 01/22/2026, Waste: 0 mL Iraj Garcia MD OPHTH CLINIC PROCEDURES Final Re sult Performing Organization Address [facility] Co de Phone Number [facility] * Intravitreal injection, pharmacologic agent, OD, Right Eye (12/04/2024 11:35 AM CDT) Narrative [facility] - 12/04/2024 11:35 AM CDT Time Out 12/04/2024. 11:21 AM. Confirmed correct patient, procedure, site, and patient consented. Injection: 2 mg aflibercept 2 MG/0.05ML Route: Intravitreal, Site: Right Eye NDC: 63662-921-34, Lot: [id number], Expiration date: 01/22/2026, Waste: 0 mL us Iraj Garcia MD OPHTH CLINIC PROCEDURES Final Re sult Performing Organization Address [facility] de Phone Number [facility] * LIPID PANEL AND DIRECT LDL(IF [...] 12:26 PM CDT Performed at [facility], [address] [place] [address] us Kristine Brown MD LAB_1 Final Result Performing Organization Address [facility] Co de Phone Number [facility] [phone] from Last 3 Months or Most Recently Relevant to Health Maintenance Insurance MEDICARE ADVANTAGE [employer] Care Teams Grapple Skidder Operator Relationship Specialty [place] [address] [place] [address] PCP - General Family Practice 03/25/13
[2025-02-12 12:00] VITALS: BP 140/88
--- OUTSIDE RECORDS SUMMARY | 2025-02-12 12:00 | XMS_ITS | Clinical Summary ---
Author Organization [facility] Address [address] [place] [address] Care Team Providers Care Radioisotope Production Operator Name Role Phone Miguel Dowling MD Primary Care Provider [phone] Allergies Active Allergy Reactions Criticality Noted Date [...] it due to family addiction issues. Medications lisinopriL (PRINIVIL; ZESTRIL) 40 mg tablet Take 40 mg by mouth once daily. 01/08/20 21 Active aspirin chewable 81 mg tablet Chew 81 mg by mouth once daily with a meal. Active acetaminophen (TYLENOL) 500 mg capsule Take 1,000 mg by mouth each time if needed (patient taking every few days as needed, usually two 500 mg tablets). Max acetaminophen dose: 4000mg in 24 hrs. 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 30 Tablet 11/22/19 25 Active Active Problems Problem Noted Date Diagnosed Date Paroxysmal atrial fibrillation 03/31/2022 Rectal cancer 03/31/2022 Polycythemia 03/31/2022 Overview (03/31/2022): Going back at least as far as 2014. No workup. Hypertension 03/31/2022 Gout 03/31/2022 Macular degeneration 03/31/2022 Obesity (BMI 30.0-34.9) 03/31/2022 REBECCA (obstructive sleep apnea) 03/31/2022 Prediabetes 03/31/2022 Encounters Date Type Department Care Team Description 11/22/2024 Telephone [facility] Neurosurgery [facility] [address] [place] [address] Yolanda Dunn NP Questions (Rosuvastatin Rx) 11/22/2024 Orders Only [facility] Neurosurgery [facility] [address] [place] [address] Pat Garnica RN <No scans attached> 11/21/2024 1:30 PM CDT Office Visit [facility] Neurosurgery [facility] [address] [place] [address] Yolanda Dunn NP 11/21/2024 Travel 11/20/2024 Telephone [facility]surgery [facility] [address] [place] [address] Yolanda Dunn NP Appointment Reminder from Last 3 Months Immunizations Immunization Administration Dates Next Due COVID-19 vaccine (Pfizer-BioNTeasy2comply (Dynasec) 30mcg/0.3mL) KALINA Aponte 06/22/2020,05/29/2020 Family History Medical History Relation Name Comments Transient ischemic attack Father Stroke Mother Relation Name Status Comments Father Mother Social History Tobacco Use Types Packs/Day Years Used Date Smoking Tobacco: Former Cigarettes Q uit: 1972 Smokeless Tobacco: Never Tobacco Cessation:Counseling Given: Not Answered Comments:50 years ago Alcohol Use Standard Drinks/Week Comments Not Currently 2 (1 standard drink = 0.6 oz pur e alcohol) Sex and Gender Information Value Date Recorded Sex Assigned at Not on file Legal Sex Male 4:22 PM DIRECTOR INTERNATIONAL Gender Identity Not on file Sexual Orientation Not on file Obstetrics History Last Filed Vital Signs Vital Sign Reading Time Taken Comments Blood Pressure 151/82 11/21/2024 1:30 PM CDT Pulse 67 11/21/2024 1:30 PM CDT Temperature 37.1 C (98.7 F) 04/03/2022 7:48 AM DIRECTOR INTERNATIONAL Respiratory Rate 18 04/03/2022 7:48 AM DIRECTOR INTERNATIONAL Oxygen Saturation 92% 04/03/2022 7:48 AM DIRECTOR INTERNATIONAL Inhaled Oxygen Concentration - - Weight 107.7 kg (237 lb 6.4 oz) 11/21/2024 1:30 PM CDT Height 185.4 cm (6' 1) 11/21/2024 1:30 PM CDT Body Mass Index 31.32 11/21/2024 1:30 PM CDT Plan of Treatment Health Maintenance Due Date Last Done Comments Tetanus booster 1958 Depression screening for age 12+ 1959 Hepatitis C screening for ag e 18-79 1965 Pneumococcal series for age 50+ (1 of 2 - PCV) 1966 Zoster (shingles) series for age 50+ (1 of 2) 1997 Medicare Wellness for age 65+ 01/25/2012 RSV vaccine for adults or (1 - 1-dose 75+ series) 2022 COVID-19 vaccine series (3 - 2024- season) 2024 06/22/2020, 05/29/2020 Influenza Vaccine (#1) 2024 BMI (ht and wt on same day) for age 18+ 11/21/2025 11/21/2024 Hepatitis B series for 19+ Aged Out N o longer eligible based on patient's age to complete this topic Insurance MEDICARE ADVANTAGE [place] [id number] MEDICARE PART A HB ONLY Advance Directives * Full Code (Latest Code Status on File) Date Activated Date Inactivated Comments 03/31/2022 10:50 AM 04/03/2022 6:36 PM Question Answer Comments Code Status Discussion: Reviewed Preferences Care Teams Radioisotope Production Operator Relationship Specialty Start Date End Date Miguel Dowling MD [address] [place] [address] PCP - General Family Practice 10/05/24
--- OUTSIDE RECORDS SUMMARY | 2025-02-12 12:00 | XMS_ITS | CCD ---
Author Name [id number] Address [address] [place], [place] [address] [address] [facility] Address [address] [address] Reason for Visit Social History Date Name Value 12/21/2024 Sex Male
--- OUTSIDE RECORDS SUMMARY | 2025-02-12 12:00 | XMS_ITS | Encounter Summary ---
Author Organization [facility] Address [address], [place] [address] Care Team Providers Care Dermatopathologist Name Role Phone Kristine Brown MD Primary Care Provider Encounter Details Date Type Department Care Team (Late st Contact Info) Description 09/29/2009 Correspondence External to External, [place] [address] MED HX AND MEDICATIONS Social History Tobacco Use Types Packs/Day Years Used Date Smoking Tobacco: Never Assessed Sex and Gender Information Value Date Recorded Sex Assigned at Not on file Legal Sex Male 4:58 AM CDT Gender Identity Not on file Sexual Orientation Not on file documented as of this encounter Progress Notes * External, Provider - 09/29/2009 12:00 AM CDT SUPERINTENDANT documented in this encounter Plan of Treatment Upcoming Encounters Date Type Department Care Team (Late st Contact Info) Description 03/28/2025 10:15 AM MELT SUPERINTENDANT Appointment Ophthalmology at [facility] [address] [place] [address]. [place], [place] [phone] Iraj Garcia MD [address] [place] [phone] 08/01/2025 10:00 AM CDT Appointment Ophthalmology at [facility] [place] [address] 08/01/2025 10:30 AM CDT Appointment Ophthalmology at [facility] [address] [place] [address] Juaquin Meyer MD [address] [place] [address] documented as of this encounter Visit Diagnoses Not on filedocumented in this encounter Care Teams Dermatopathologist Relationship Specialty [place] [address] [place], [place] [phone] PCP - General Family Practice 03/25/13 documented as of this encounter
--- OUTSIDE RECORDS SUMMARY | 2025-02-12 12:00 | XMS_ITS | Clinical Summary ---
Author Organization [place] Address [address] [place] [address] Care Team Providers Care Acupuncture Physician Name Role Phone Miguel Dowling MD Primary Care Provider [phone] Allergies No known active allergies Medications LISINOPRIL [...] on file Legal Sex Male 3:20 AM QUALITY CONSULTANT Gender Identity Not on file Sexual Orientation Not on file Last Filed Vital Signs Vital Sign Reading Time Taken Comments Blood Pressure 91/72 03/29/2022 12:11 PM QUALITY CONSULTANT Pulse 111 03/29/2022 12:21 PM QUALITY CONSULTANT Temperature 36.6 C (97.9 F) 07/30/2011 6:27 PM CDT Respiratory Rate 25 03/29/2022 12:21 PM QUALITY CONSULTANT Oxygen Saturation 92% 03/29/2022 12:16 PM QUALITY CONSULTANT Inhaled Oxygen Concentration - - Weight 108.9 kg (240 lb) 03/29/2022 11:22 AM QUALITY CONSULTANT Height 180.3 cm (5' 11) 03/29/2022 11:22 AM QUALITY CONSULTANT Body Mass Index 33.47 03/29/2022 11:22 AM QUALITY CONSULTANT Plan of Treatment Health Maintenance Due Date Last Done Comments ADVANCE CARE PLANNING 1945 ANNUAL REVIEW OF HM ORDERS 1945 DIABETES SCREENING 1945 URIC ACID 1945 HEPATITIS C SCREENING 1965 LIPID 1987 LUNG CANCER SCREENING 1997 FALL RISK ASSESSMENT 01/25/2012 MEDICARE ANNUAL WELLNESS VISIT 01/25/2012 ZOSTER VACCINE (2 of 3) 02/03/2016 12/09/2015 RSV VACCINE (1 - 1-dose 75+ series) 2022 PHQ-2 (once per calendar year) 2024 COVID-19 VACCINE (3 - 2024- season) 2024 06/22/2020, 05/29/2020 INFLUENZA VACCINE (#1) 2024 2, 01/23/2016 DTAP/TDAP/TD VACCINE (3 - Td or Tdap) 03/06/2028 03/06/2018, 11/30/2012 PNEUMOCOCCAL VACCINE 50+ YEARS Completed 01/07/2021, 03/06/2018, 12/09/2015 COLORECTAL CANCER SCREENING Discontinued FLEX SIG Discontinued 03/29/[address] COLONOGRAPHY Discontinued FIT Discontinued HPV VACCINE (No Doses Required) Completed MENINGITIS VACCINE Aged Out No longer eligible based on patient's age to complete this topic sDNA (Cologuard) Discontinued Procedures Procedure Name Priority Date/Time Associated Diagnosis Comments FLEXIBLE SIGMOIDOSCOPY Routine 11:35 AM QUALITY CONSULTANT from Last 3 Months or Most Recently Relevant to Health Maintenance Results * FLEXIBLE SIGMOIDOSCOPY (03/29/2022 11:35 AM QUALITY CONSULTANT) Pathologist [facility] Flex Sig [place] [address] [place] [address] Patient Name: Armen Crump Procedure Date: 03/29/2022 [...] on . Procedure Code(s): --- Professional --- 89584, Sigmoidoscopy, flexible; with biopsy, single or multiple Diagnosis Code(s): --- Professional --- C20, Malignant neoplasm of rectum K62.1, Rectal polyp Z01.818, Encounter for other preprocedural examination CPT copyright 2020 [employer] [place] [employer]. All rights reserved. The codes documented in this report are preliminary and upon corporate intern review may be revised to meet current [...] AM RADIOLOGY RESULTS 03/29/2022 11:3 5 AM QUALITY CONSULTANT us Camila Brar MD PROCEDURES Final Re sult RADIOLOGY RESULTS from Last 3 Months or Most Recently Relevant to Health Maintenance [facility] Care Teams Acupuncture Physician Relationship Specialty Start Date End Date Miguel Dowling MD PCP - General Family Medicine 03/07/22
[2025-02-12] MEDS: DOCUSATE SODIUM/BENZOCAINE 5 ML ENEMA PR (13:18)
== END 2025-02-12 14:29 | disposition home or self-care (01) ==
PROVIDERS: Emergency Provider Family Medicine; PCP Family Medicine
DX: N13.9 Obstructive and reflux uropathy, unspecified (principal); K59.00 Constipation, unspecified
CPT/HCPCS: 51798; 74019; 81001; 99284; A9270

== ENCOUNTER 2025-02-16 08:59 | Emergency (ER) | payer OTHER, SELFPAY ==
--- OUTSIDE RECORDS SUMMARY | 2025-01-27 11:00 | XMS_ITS | Encounter Summary ---
Author Organization [facility] Address [address] [place] [address] Care Team Providers Care Roll Scale Worker Name Role Phone Kristine Brown MD Primary Care Provider [phone] Encounter Details Date Type Department Care Team (Latest Contact Info) Description 01/27/2025 11:00 AM CDT Office Visit Ophthalmology at [facility] 401 [facility] 401 [facility]. 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 If this occurs, you may use ylvl-nje-hqxnacv tear dropsor ointment from a pharmacy to provide some relief of symptoms. However, you SHOULD NOT experience symptoms of SIGNIFICANT PAIN, HEADACHE, LIGHT SENSITIVITY, or SUDDEN CHANGES IN VISION following an injection, especially occurring a day or more following the procedure. If any of these occur, call the CARELINE immediately at and ask to speak with the doctor professional services consultant. These can be signs of a potentially blinding infection, which would require emergent treatment. Dr. Garcia would like to see you back in 8 weeks for INJECTION appointment with OCT MACULA scan and Eylea 2 mg injection right eye. However, if you notice that you have new or worsening symptoms prior to that time, you should call immediately for an urgent appointment. For appointments (Option #5) After hours CareLine documented in this encounter Progress Notes * Iraj Garcia MD - 01/27/2025 11:00 AM CDT Last seen this provider 12/04/2024 Armen Crump is a 80 y.o. male here for his 7 week 5 day follow up Wet AMD OD. Patient states that the vision is improved since his stroke. Past Injections: Eylea 2mg OD x 4, last inject 12/04/2024 (7 weeks 5 days) Eylea HD OD x 1, last inject 07/01/2024 (6 months) Eylea 2mg OS x 1, last inject 07/01/2024 (6 months) *H/O Eylea 2mg OS (with Dr. Thomas at [facility], Possibly 10/2023)* Eye Med/Surg History: pcIOL OU (11/2023, [facility]) Relevant Medical History: Hypertension CVA 09/2024 Glaucoma Meds: Latanoprost QHS OU LD: 10:00 PM Other Eye Meds: ATs PRN OU Review of Systems: Pertinent ROS noted in HPI No results found for: HGBA1C BP Readings from Last 3 Encounters: 07/26/17 (!) 143/87 01/24/17 122/71 11/07/16 139/85 OCT: Interpretation: (01/27/2025) RIGHT: stable ERM, no fluid, unchanged RPE changes; LEFT: stable scar w/ slight increase in cysts, mild ERM Performed by GUSTAVO Rutledge for dx Wet AMD OD OCT: Interpretation: (10/14/2024) RIGHT: stable RPE changes, no fluid, mild ERM; LEFT: stable scar, no fluid OCT: Interpretation: (09/09/2024) RIGHT: stable RPE changes, no fluid @ 5w; LEFT: stable scar OCT: Interpretation: (08/05/2024) RIGHT: Interval decrease in [...] Dr. Garcia 09/09/2024 Continue q5w tx. Dry. 10/14/2024 Stable/controlled with Eylea. Pt had recent CVA from which he is recovering. Treated by neuro. Discussed theoretical increased incidence/risk of stroke with anti-VEGF injections, which is low based on small amount of systemic absorption. Since pt is monocular and at high risk of vision loss in betting seeing eye, he wishes to continue treatment. TAE 6w. 12/04/2024 Stable despite 7w2d. FRANKS. 01/27/2025 stable @ 7w5d. FRANKS 8w. Wet AMD OS 02/19/2024 guarded prognosis 2/2 macular scarring. No ongoing exudation at this time. 07/01/2024 stable scar with guarded prognosis. Discussed PRN vs continue tx. Pt opting to maintain q4 mo treatment. 08/05/2024 observe today without treatment 09/09/2024 Continue q4m tx. 01/27/2025 Given inc cysts @ 5 mos, treat today. Glc Suspect OU 10/14/[address] Meyer 10/21/24: RNFL shows borderline inferior thinning OU, but dense R sided field defect involving middle OD, central scotoma OS. ERM OD 10/14/2024 given intact acuity in better eye, not recommending surgery. Last Dilation: 07/01/2024 PLAN: Eylea OU today Monocular precautions Reviewed higher risk of CVA in setting of anti-VEGF treatment Tx OS q4-5months AREDS2 vitamins Amsler grid RTC 8 weeks: OCT, Eylea 2 mg OD Risks, [...] less than 1 unit Prepped by GUSTAVO Burnette Following the procedure noted above, the exact same procedure with identical parameters, injection of Eylea, was performed on the opposite, LEFT eye for diagnosis of wet/exudative macular degeneration. Kathleen Garcia MD 01/27/2025 11:34 AM documented in this encounter Plan of Treatment Upcoming Encounters Date Type Department Care Team (Late st Contact Info) Description 03/28/2025 10:15 AM CLAIM ATTORNEY Appointment Ophthalmology at [address] 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 12:10 PM. Confirmed correct patient, procedure, site, and patient consented. Injection: 2 mg aflibercept 2 MG/0.05ML Route: Intravitreal, Site: Right Eye NDC: 06308-560-49, Lot: [id number], Expiration date: 01/22/2026, Waste: 0 mL Left Eye 01/27/2025. 12:10 PM. Confirmed correct patient, procedure, site, and patient consented. 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) documented in this encounter Administered Medications Inactive Administered Medications - up to 3 most recent administrations Medication Order MAR Action Action Date Dose Rate Site aflibercept (EYLEA) injection 2 mg 2 mg, Intravitreal, Once, as needed, Starting on Mon01/27/25 at 1225, For 1 doseIndications: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),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 left eye with active choroidal neovascularization (HRC) Given 01/27/2025 12:25 PM CDT 2 mg Right Eye aflibercept (EYLEA) injection 2 mg 2 mg, Intravitreal, Once, as needed, Starting on 01/27/25 at 1225, For 1 doseIndications: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
--- OUTSIDE RECORDS SUMMARY | 2025-01-29 09:45 | XMS_ITS | Encounter Summary ---
Author Organization [facility] Address [address] [place] [address] Care Team Providers Care Certified Hearing Instrument Dispenser Name Role Phone Kristine Brown MD Primary Care Provider [phone] Encounter Details Date Type Department Care Team (Latest Contact Info) Description 01/29/2025 9:45 AM CDT Office Visit Ophthalmology at [place] [id number] [place] [address] Juaquin Meyer MD [address] [place] [address] Glaucoma suspect of both eyes (Primary Dx); Pseudophakia Social History Tobacco Use Types Packs/Day Years [...] this encounter Patient Instructions * Patient Instructions* Juaquin Meyer MD - 01/29/2025 9:45 AM CDT Continue latanoprost drop once per day at night in each eye. Follow-up for repeat glaucoma testing in 6 months. - Follow-up with your neurology doctors as planned. - Follow-up with Dr. Garcia as he recommended. Seek care immediately if symptoms change or worsen. documented in this encounter Progress Notes * Juaquin Meeyr MD - 01/29/2025 9:45 AM CDT Last saw this provider 12/18/2024 Armen Crump is a 80 y.o. male here for his 5 week follow-up Glaucoma suspect. Eye drops: tolerating drops well. Overall vision is worse for the intermittent distance. Patient had a an Eylea injection 2 days ago. Glaucoma Medications: Latanoprost QHS OU LD: 950 pm Other Eye Medications: none CTA head 10/13/24 ([facility]) Radiologist impression: No aneurysm is identified. No large vessel occlusion. No acute intracranialabnormality at CTA. MRI brain 10/04/24 ([facility]): Radiologist impression: Acute ischemic infarcts in the right anteromedial thalamus and right medial cerebral peduncle. Remote punctate microhemorrhage in the right thalamus. Mild paranchymal volume loss and chronic small vessel ischemic changes. A/P: Mild POAG OU - Data: - Max IOP: 19/19 - CCT: thick 609/604 - Gonio: __ - Previous glaucoma surgery/laser: none - Failed txs: none - Intolerances/AEs: none - Risk factors: no family hx of glaucoma. - RNFL ( 12/18/2024 ): Abnormalities OD: Poor quality, Nasal thick, inferior borderline thinning. Abnormalities OS: Inferior borderline thinning. Comparison to prior: Slightly thinner OU vs. progression of AMD. - HVF 24-2 ( 12/18/2024 ): L eye abnormalities: Central depression Comparison to prior: Overall stable R eye abnormalities: Superior altitudinal defect. Comparison to prior: Stable. 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 Left eye central defect likely from AMD. RNFL is poor quality and affected by PPA. - Discs with at least moderate cupping and with significant PPA. - Today, IOP 11/12 in setting of thick pachy. No family hx of glaucoma. - Continue latanoprost qHS OU. - Follow-up in 6 months with repeat VF and RNFL, sooner if issues. Hx ischemic stroke Hx partial right CN III palsy, pupil-sparing, resolved - Diagnosed with ischemic stroke affecting right midbrain and thalamus September 2024 per outside records. - Outside records obtained showing CTA head from [place], impression reads no acute findings andno aneurysm. Also obtained MRI brain from [place] showing ischemic infarcts as above as the etiology of the CN III palsy. - Diplopia has since resolved, exam today shows interval resolution of the CN III palsy. PLAN: - Patient following with his outside neurosurgery/neurology docs. - Discussed immediate ED return precautions. Exudative AMD OU ERM OU - Limiting VA and affecting visual kumar. - Follows with retina, receives regular anti-VEGF injections. - Recommend continued follow-up with retina. Pseudophakia s/p YAG cap OU Myopia of both eyes with astigmatism and presbyopia - s/p CEIOL OU with Dr. Hernandez Summer 2023. - s/p YAG cap OU with Dr. Hernandez. Patient believes this helped with mild improvement in cloudiness. - Continue current glasses, no improvement in MRx right eye today. Future Eye Care Visits Last 0 days Date Type Provider Description 08/01/2025 Appointment Juaquin Meyer MD 08/01/2025 Appointment 03/28/2025 Appointment Iraj Garcia MD Return for 6 months, [place], HVF 24-2, RNFL. documented in this encounter Plan of Treatment Upcoming Encounters Date Type Department Care Team (Late st Contact Info) Description 03/28/2025 10:15 AM FURNACE OPERATOR OIL OR GAS Appointment Ophthalmology at [address] [place] [address] Iraj Garcia MD [address] [place] [address] 08/01/2025 10:00 AM CDT Appointment Ophthalmology at [address] [address] 08/01/2025 10:30 AM CDT Appointment Ophthalmology at [facility] [address] [place] [phone] Juaquin Meyer MD [address] [place] [address] documented as of this encounter Visit Diagnoses Diagnosis Glaucoma suspect of both eyes- Primary Preglaucoma, unspecified Pseudophakia Lens replaced by other means documented in this encounter Care Teams Certified Hearing Instrument Dispenser Relationship Specialty [place] [address] [place] [address] PCP - General Family Practice 03/25/13 documented as of this encounter
--- OUTSIDE RECORDS SUMMARY | 2025-02-16 09:02 | XMS_ITS | Encounter Summary ---
Author Organization [facility] Address [address], [place] [address] Care Team Providers Care Contract Coordinator Name Role Phone Kristine Brown MD Primary Care Provider Encounter Details Date Type Department Care Team (Late st Contact Info) Description 04/18/2016 Refill Order [facility] [address] [place], [place] [phone] [place] [address] [place], [place] [phone] Social History Tobacco Use Types Packs/Day Years [...] notified. Charlene Ortega CMA 05/05/2016, 6:11 PM PLATE GRAINER documented in this encounter Plan of Treatment Upcoming Encounters Date Type Department Care Team (Late st Contact Info) Description 03/28/2025 10:15 AM ZINC PLATE GRAINER Appointment Ophthalmology at [address] [place] [address] Iraj Garcia MD [address] [place] [address] 08/01/2025 10:00 AM CDT Appointment Ophthalmology at [facility] [address] [place] [phone] 08/01/2025 10:30 AM CDT Appointment Ophthalmology at [facility] [address] [place] [phone] Juaquin Meyer MD [address] [place] [address] documented as of this encounter Visit Diagnoses Diagnosis Encounter for long-term (current) use of medications- Primary Encounter for long-term (current) use of other medications documented in this encounter Care Teams Contract Coordinator Relationship Specialty [place] [address] [place], [place] [phone] PCP - General Family Practice 03/25/13 documented as of this encounter
--- OUTSIDE RECORDS SUMMARY | 2025-02-16 09:02 | XMS_ITS | Clinical Summary ---
Author Organization [facility] Address [address] [place] [address] Care Team Providers Care Ambulance Mechanic Name Role Phone Unavailable Primary Care Provider Unavailabl e Source Comments Patient records contain information from all sites at [facility]. For routine questions regarding patient records, call [phone] during business hours, M-F 8:00 AM - 5:00 PM Central Time. Record requests for emergency care only can be directed to [phone] at any time.[facility] Social History Tobacco Use Types Packs/Day Years Used Date Smoking Tobacco: Never Assessed Sex and Gender Information Value Date Recorded Sex Assigned at Not on file Legal Sex Male 11:45 AM POWER SAW OPERATOR Gender Identity Not on file Sexual [...] patient's age to complete this topic Insurance [facility]
--- OUTSIDE RECORDS SUMMARY | 2025-02-16 09:02 | XMS_ITS | Clinical Summary ---
Author Organization [facility] Address [address], [place] [address] Care Team Providers Care Yarn Washer Name Role Phone Kristine Brown MD Primary Care Provider [phone] Source Comments You are receiving this document [...] for each transition of care or referral. DinnDinn Allergies Active Allergy Reactions Criticality Noted Date [...] 9:45 AM CDT Office Visit Ophthalmology at [facility] [address] [place] [address] Juaquin Meyer MD Glaucoma suspect of both eyes (Primary Dx); Pseudophakia 01/27/2025 11:00 AM CDT Office Visit Ophthalmology at [address] 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 [address] Iraj Garcia MD Wet age-related macular degeneration [...] CDT Respiratory Rate 14 05/19/2016 9:41 AM SERVICE CONTROL OPERATOR Oxygen Saturation - - Inhaled Oxygen Concentration - - Weight 108 kg (238 lb) 07/26/2017 8:48 AM CDT Height 182.9 cm (6') 2017 2:30 PM CDT Body Mass Index 32.28 2017 2:30 PM CDT Plan of Treatment Upcoming Encounters Date Type Department Care Team (Late st Contact Info) Description 03/28/2025 10:15 AM SERVICE CONTROL OPERATOR Appointment Ophthalmology at [address] [place] [address] Iraj Garcia MD [address] [place] [address] 08/01/2025 10:00 AM CDT Appointment Ophthalmology at [address] [phone] 08/01/2025 10:30 AM CDT Appointment Ophthalmology at [address] [phone] Juaquin Meyer MD [address] [place] [address] Health Maintenance Due Date Last Done Comments [...] MG/0.05ML Route: Intravitreal, Site: Right Eye NDC: 50304-257-53, Lot: [id number], Expiration date: 01/22/2026, Waste: 0 mL Left Eye 01/27/2025. 12:10 PM. Confirmed correct patient, procedure, site, and patient consented. Injection: 2 mg aflibercept 2 MG/0.05ML Route: Intravitreal, Site: Left Eye NDC: 82679-965-86, Lot: [id number], Expiration date: 01/22/2026, Waste: 0 mL Iraj Garcia MD OPHTH CLINIC PROCEDURES Final Re sult Performing Organization Address [facility] Co de Phone Number [facility] * Intravitreal injection, pharmacologic agent, OD, Right Eye (12/04/2024 11:35 AM CDT) Narrative [facility] - 12/04/2024 11:35 AM CDT Time Out 12/04/2024. 11:21 AM. Confirmed correct patient, procedure, site, and patient consented. Injection: 2 mg aflibercept 2 MG/0.05ML Route: Intravitreal, Site: Right Eye NDC: 88110-324-05, Lot: [id number], Expiration date: 01/22/2026, Waste: 0 mL us Iraj Garcia MD OPHTH CLINIC PROCEDURES Final Re sult Performing Organization Address [facility] de Phone Number [facility] * LIPID PANEL AND DIRECT LDL(IF [...] - 01/30/2015 12:26 PM CDT Performed at [facility], [address] [place] [address] us Kristine Brown MD LAB_1 Final Result Performing Organization Address [facility] Co de Phone Number [facility] [phone] from Last 3 Months or Most Recently Relevant to Health Maintenance Insurance MEDICARE ADVANTAGE [employer] Care Teams Yarn Washer Relationship Specialty [place] [address] [place] [address] PCP - General Family Practice 03/25/13
--- OUTSIDE RECORDS SUMMARY | 2025-02-16 09:02 | XMS_ITS | Encounter Summary ---
Author Organization [facility] Address [address], [place] [address] Care Team Providers Care Construction Trench Digger Name Role Phone Kristine Brown MD Primary Care Provider [phone] Encounter Details Date Type Department Care Team (Late st Contact Info) Description 09/29/2009 Correspondence External to External, [place] [address] MED HX AND MEDICATIONS Social History Tobacco Use Types Packs/Day Years Used Date Smoking Tobacco: Never Assessed Sex and Gender Information Value Date Recorded Sex Assigned at Not on file Legal Sex Male 4:58 AM CDT Gender Identity Not on file Sexual Orientation Not on file documented as of this encounter Progress Notes * External, Provider - 09/29/2009 12:00 AM CDT LY INDEPENDENCE CASE MANAGER documented in this encounter Plan of Treatment Upcoming Encounters Date Type Department Care Team (Late st Contact Info) Description 03/28/2025 10:15 AM FAMILY INDEPENDENCE CASE MANAGER Appointment Ophthalmology at [facility] [address] [place] [address]. [place], [place] [phone] Iraj Garcia MD [address] [place] [phone] 08/01/2025 10:00 AM CDT Appointment Ophthalmology at [facility] [place] [facility] [place] [address] 08/01/2025 10:30 AM CDT Appointment Ophthalmology at [facility] [address] [place] [address] Juaquin Meyer MD [address] [place] [address] documented as of this encounter Visit Diagnoses Not on filedocumented in this encounter Care Teams Construction Trench Digger Relationship Specialty [place] [address] [place], [place] [phone] PCP - General Family Practice 03/25/13 documented as of this encounter
--- OUTSIDE RECORDS SUMMARY | 2025-02-16 09:02 | XMS_ITS | Encounter Summary ---
Author Organization [facility] Address [address] [place] [address] Care Team Providers Care It Infrastructure Specialist Name Role Phone Kristine Brown MD Primary Care Provider [phone] Reason for Visit * Reason Comments EMPF UL Flor Del Rio Fell Off Encounter Details Date Type Department Care Team (Late st Contact Info) Description 10/08/2024 Telephone [facility] Unassigned, Provider [address] [place] [address] EMPF (UL Flor Del Rio Fell Off/) Social History Tobacco Use Types [...] (Late Contact Info) Description 03/28/2025 10:15 AM RACQUET MAKER Appointment Ophthalmology at [address] [place] [address] Iraj Garcia MD [address] [place] [phone] 08/01/2025 10:00 AM CDT Appointment Ophthalmology at [facility] [address] [place] [address] 08/01/2025 10:30 AM CDT Appointment Ophthalmology at [facility] [address] [place] [phone] Juaquin Meyer MD [address] [place] [phone] documented as of this encounter Visit Diagnoses Not on filedocumented in this encounter Care Teams It Infrastructure Specialist Relationship Specialty [place] [address] [place], [place] [phone] PCP - General Family Practice 03/25/13 documented as of this encounter
--- OUTSIDE RECORDS SUMMARY | 2025-02-16 09:02 | XMS_ITS | Patient Health Record ---
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
--- OUTSIDE RECORDS SUMMARY | 2025-02-16 09:03 | XMS_ITS | Clinical Summary ---
Author Organization [facility] Address [address] [place] [address] Care Team Providers Care Customer Care Professional Name Role Phone Miguel Dowling MD Primary Care Provider [phone] Allergies Active Allergy Reactions Criticality Noted Date [...] Type Department Care Team Description 11/22/2024 Telephone [facility] [address] [place] [phone] Yolanda Dunn NP Questions (Rosuvastatin Rx) 11/22/2024 Orders Only [facility] [address] [place] [address] Pat Garnica RN <No scans attached> 11/21/2024 1:30 PM CDT Office Visit [facility] [address] [place] [address] Yolanda Dunn NP 11/21/2024 Travel 11/20/2024 Telephone [facility] [address] [place] [phone] Yolanda Dunn NP Appointment Reminder from Last 3 Months Immunizations Immunization Administration Dates Next Due COVID-19 vaccine ([employer] 30mcg/0.3mL) KALINA Aponte 06/22/2020,05/29/2020 Family History Medical [...] on file Legal Sex Male 4:22 PM TSO Gender Identity Not on file Sexual Orientation Not on file Obstetrics History Last Filed Vital Signs Vital Sign Reading Time Taken Comments Blood Pressure 151/82 11/21/2024 1:30 PM CDT Pulse 67 11/21/2024 1:30 PM CDT Temperature 37.1 C (98.7 F) 04/03/2022 7:48 AM TSO Respiratory Rate 18 04/03/2022 7:48 AM TSO Oxygen Saturation 92% 04/03/2022 7:48 AM TSO Inhaled Oxygen Concentration - - Weight 107.7 [...] or (1 - 1-dose 75+ series) 2022 Influenza Vaccine (#1) 2024 BMI (ht and wt on same day) for age 18+ 11/21/2025 11/21/2024 Hepatitis B series for 19+ Aged Out N o longer eligible based on patient's age to complete this topic Insurance MEDICARE ADVANTAGE [place] [id number] MEDICARE PART A HB ONLY Advance Directives * Full Code (Latest Code Status on File) Date Activated Date Inactivated Comments 03/31/2022 10:50 AM 04/03/2022 6:36 PM Question Answer Comments Code Status Discussion: Reviewed Preferences Care Teams Customer Care Professional Relationship Specialty Start Date End Date Miguel Dowling [place] [address] [place] [address] PCP - General Family Practice 10/05/24
--- OUTSIDE RECORDS SUMMARY | 2025-02-16 09:03 | XMS_ITS | Clinical Summary ---
Author Organization [facility] Address [address] [place] [address] Care Team Providers Care Fisher Sponge Hooking Name Role Phone Miguel Dowling MD Primary Care Provider Allergies No known active allergies Medications LISINOPRIL [...] on file Legal Sex Male 3:20 AM LAUNDRY HOUSEKEEPER Gender Identity Not on file Sexual Orientation Not on file Last Filed Vital Signs Vital Sign Reading Time Taken Comments Blood Pressure 91/72 03/29/2022 12:11 PM LAUNDRY HOUSEKEEPER Pulse 111 03/29/2022 12:21 PM LAUNDRY HOUSEKEEPER Temperature 36.6 C (97.9 F) 07/30/2011 6:27 PM CDT Respiratory Rate 25 03/29/2022 12:21 PM LAUNDRY HOUSEKEEPER Oxygen Saturation 92% 03/29/2022 12:16 PM LAUNDRY HOUSEKEEPER Inhaled Oxygen Concentration - - Weight 108.9 kg (240 lb) 03/29/2022 11:22 AM LAUNDRY HOUSEKEEPER Height 180.3 cm (5' 11) 03/29/2022 11:22 AM LAUNDRY HOUSEKEEPER Body Mass Index 33.47 03/29/2022 11:22 AM LAUNDRY HOUSEKEEPER Plan of Treatment Health Maintenance Due Date [...] Diagnosis Comments FLEXIBLE SIGMOIDOSCOPY Routine 11:35 AM LAUNDRY HOUSEKEEPER from Last 3 Months or Most Recently Relevant to Health Maintenance Results * FLEXIBLE SIGMOIDOSCOPY (03/29/2022 11:35 AM LAUNDRY HOUSEKEEPER) Pathologist [facility] Flex Sig [place] [address] [place] [address] Patient Name: Armen Crump Procedure Date: 03/29/2022 [...] on . Procedure Code(s): --- Professional --- 73936, Sigmoidoscopy, flexible; with biopsy, single or multiple Diagnosis Code(s): --- Professional --- C20, Malignant neoplasm of rectum K62.1, Rectal polyp Z01.818, Encounter for other preprocedural examination CPT copyright 2020 [employer]. All rights reserved. The codes documented in this report are preliminary and upon gear roller review may be revised to meet current [...] AM RADIOLOGY RESULTS 03/29/2022 11:3 5 AM LAUNDRY HOUSEKEEPER us Camila Brar MD PROCEDURES Final Re sult RADIOLOGY RESULTS from Last 3 Months or Most Recently Relevant to Health Maintenance [facility] Care Teams Fisher Sponge Hooking Relationship Specialty Start Date End Date Miguel Dowling MD PCP - General Family Medicine 03/07/22
--- OUTSIDE RECORDS SUMMARY | 2025-02-16 09:03 | XMS_ITS | CCD ---
Author Name Interface, [id number] [facility]ity Address [address] [place], [place] [address] [address] [facility] Address [facility] [address] [address] Reason for Visit Social History Date Name Value 12/21/2024 Sex Male
[2025-02-16 09:09] VITALS: BP 147/98; PULSE 90; RESP 18; TEMP 36.8; O2SAT 95; BMI 32.5
--- OUTSIDE RECORDS SUMMARY | 2025-02-16 09:55 | XMS_ITS | CCD ---
Author Name Interface, [id number] lity Address [address] [place], [place] [address] [place] [address] [facility] Address [address] [place] [address] Reason for Visit Social History
--- OUTSIDE RECORDS SUMMARY | 2025-02-16 09:55 | XMS_ITS | CCD ---
Author Name Interface, [id number] lity Address [address] [place], [place] [address] [place] [address] [facility] Address [facility] [address] [address] Reason for Visit Social History Date Name Value 12/21/2024 Sex Male
--- NOTE | 2025-02-16 11:28 | ED.GENADULT ---
HPI - General Adult General Date Seen: 02/16/25 Chief complaint: Urogenital Problems, Male Stated complaint: catheter problems Time Seen by Provider: 02/16/25 09:42 History of Present Illness HPI narrative: Patient is a 80-year-old who was here a few days ago with urinary retention, had a catheter placed. A couple days after it was placed it sounds like he was having a little leaking, he had called the clinic and was told to just a little bit, he has had good flow since then. He says this morning he thought he saw what looked like ?blood crystals at the end of his penis and he was worried he may have damaged something. Continues to have good flow, was started on Bactrim by clinic a couple of days ago which he is taking. No fevers, abdominal pain, flank pain. Related Data Home Medications ?Medication ?Instructions ?Recorded ?Confirmed acetaminophen 325 mg tablet 650 mg PO Q6H PRN 05/09/22 02/16/25 (Tylenol) aflibercept 2 mg/0.05 mL 2 mg intravitreal Q60D 05/22/23 02/16/25 intravitreal solution for injection (Eylea) naproxen sodium 220 mg capsule 440 mg PO BID PRN 01/08/24 02/16/25 (Aleve) blood-glucose meter (Accu-Chek #1 ea 10/10/24 02/13/25 Guide Glucose Meter) lancets (Accu-Chek Softclix #100 ea 10/10/24 02/13/25 Lancets) latanoprost 0.005 % eye drops 1 drp ophthalmic (eye) QPM 02/13/25 02/16/25 Previous Rx's ?Medication ?Instructions ?Recorded aspirin 81 mg chewable tablet 81 mg PO DAILY #90 tabs 10/06/24 (Children's Aspirin) coenzyme Q10 200 mg capsule 200 mg PO QDAY #90 caps 12/16/24 lisinopril 10 mg tablet 5 - 10 mg (0.5 - 1 x 10 mg) PO 01/27/25 QDAY #90 tabs dutasteride 0.5 mg capsule 0.5 mg PO QDAY #90 caps 02/13/25 sennosides 8.6 mg-docusate sodium 1 tab-cap PO QHS #90 tabs 02/13/25 50 mg tablet (Senokot-S) sulfamethoxazole 800 1 tab PO BID #28 tabs 02/14/25 mg-trimethoprim 160 mg tablet (Bactrim DS) Allergies Allergy/AdvReac Type Severity Reaction Status Date / Time oxycodone Allergy Intermediate Unknown Verified 02/16/25 09:22 Gjjcnwv-BOH-YjV Reductase Allergy Intermediate Verified 02/16/25 09:22 Inhibitor ciprofloxacin AdvReac Intermediate rash Verified 02/16/25 09:22 hydrochlorothiazide AdvReac Intermediate Gout Verified 02/16/25 09:22 exacerbation metoprolol AdvReac Intermediate Verified 02/16/25 09:22 cefadroxil AdvReac GI Verified 02/16/25 09:22 upset/bloody stools PFSH PFS Medical History (Updated 02/16/25 @ 09:51 by Angela Castro MD) BPH (benign prostatic hyperplasia) ?N40.0 - Benign prostatic hyperplasia without lower urinary tract symptoms (ICD-10) 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 neoplasm of rectosigmoid junction (ICD-10) Medicare annual wellness visit, subsequent ?Z00.00 - Encounter for general adult medical examination without abnormal findings (ICD-10) Vertigo ?R42 - Dizziness and giddiness (ICD-10) Urinary frequency ?R35.0 - Frequency of micturition (ICD-10) Urinary tract infection ?N39.0 - Urinary tract infection, site not specified (ICD-10) 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 - Other diseases of salivary glands (ICD-10) Adverse effect of non-steroidal anti-inflammatory drug (NSAID) ?T39.395A - Adverse effect of other nonsteroidal anti-inflammatory drugs [NSAID], initial encounter (ICD-10) Calculus of kidney ?N20.0 - Calculus of kidney (ICD-10) Enlarged prostate ?N40.0 - Benign prostatic hyperplasia without lower urinary tract symptoms (ICD-10) Gout ?M10.9 - Gout, unspecified (ICD-10) Hypertension ?I10 - Essential (primary) hypertension (ICD-10) Atrial fibrillation ?I48.91 - Unspecified atrial fibrillation (ICD-10) Polycythemia ?D75.1 - Secondary polycythemia (ICD-10) Reoccurring knee pain ?M25.569 - Pain in unspecified knee (ICD-10) 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 (ICD-10) Diabetes ?E11.9 - Type 2 diabetes mellitus without complications (ICD-10) Pre-procedure lab exam ?Z01.812 - Encounter for preprocedural laboratory examination (ICD-10) Elevated PSA measurement ?R97.20 - Elevated prostate specific antigen [PSA] (ICD-10) History of agent [place] exposure ?Z77.098 - Contact with and (suspected) exposure to other hazardous, chiefly nonmedicinal, chemicals (ICD-10) Surgical History Status post knee replacement (~01/28/21) ?Z96.659 - Presence of unspecified artificial knee joint (ICD-10) Social History What is your current living situation?: I presently have a place to live Problems where you live: no known problems Problems where you live details: [facility] In the past 12 months, utilities in danger of being shut off: no In past 12 months, lack of transportation kept you from medical appts, meetings, work, or getting things needed for daily living: no In the past 12 mos, have been you worried that your food would run out before you had money to buy more?: never true In the past 12 mos, the food you bought just didn't last and you didn't have money to buy more?: never true Highest level of school completed/degree received: high school graduate Smoking Status: Former smoker Do you use any of these nicotine containing products: None Second hand tobacco smoke exposure: No How often do you have a drink containing alcohol: 2-3 times a week Alcohol type: hard liquor How many standard drinks containing alcohol do you have on a typical day: 1 or 2 How often do you have six or more drinks on one occasion: Never AUDIT-C Alcohol total score: 3 Non-prescribed substance use: denies use Caffeine: Yes (3-4 cups daily) How often does anyone, including family, friends and others, physically hurt you: never How often does anyone, including family, friends and others, insult or talk down to you: never How often does anyone, including family, friends and others, threaten you with harm: never How often does anyone, including family, friends and others, scream or curse at you: never service: Yes Exam Narrative: Exam Narrative: Vital signs reviewed. In general, alert, well-appearing elderly male. Abdomen: Soft nontender. : Catheter appears to be functioning well, I do not see any visible blood and there was no blood at the meatus. Const: Vital Signs, click to edit/add: Vital Signs - 24 hr 02/16/25 09:09 Temperature 98.3 F Pulse Rate [Pulse Oximeter] 90 Respiratory Rate 18 Blood Pressure [Ri ght Upper Arm] 147/98 H Pulse Oximetry 95 Oxygen Delivery Me thod Room Air Course Course ED Course: Reassured him that everything seems to be functioning well with the catheter, no evidence of trauma. He has an appointment tomorrow to have the catheter removed, encouraged him to keep that appointment. He can complete the Bactrim as prescribed. Vital Signs Vital signs: Initial Vital Signs Temperature 98.3 F 02/16/25 09:09 Temperature Source Temporal Artery Scan 02/16/25 09:09 Pulse Rate 90 02/16/25 09:09 Respiratory Rate 18 02/16/25 09:09 Blood Pressure 147/98 H 02/16/25 09:09 Blood Pressure Mean 114 H 02/16/25 09:09 Blood Pressure Position Sitting 02/16/25 09:09 Pulse Oximetry 95 02/16/25 09:09 Oxygen Delivery Method Room Air 02/16/25 09:09 Vital Signs Temperature 98.3 F 02/16/25 09:09 Pulse Rate 90 02/16/25 09:09 Respiratory Rate 18 02/16/25 09:09 Blood Pressure 147/98 H 02/16/25 09:09 Pulse Oximetry 95 02/16/25 09:09 Oxygen Delivery Method Room Air 02/16/25 09:09 Temperature 98.3 F 02/16/25 09:09 Pulse Rate 90 02/16/25 09:09 Respiratory Rate 18 02/16/25 09:09 Blood Pressure 147/98 H 02/16/25 09:09 Pulse Oximetry 95 02/16/25 09:09 Oxygen Delivery Method Room Air 02/16/25 09:09 Discharge Plan Discharge Clinical Impression: Michaud catheter problem Patient Disposition: Home, Self-Care Condition: Stable Additional Instructions: Continue your Bactrim. Follow up tomorrow morning in clinic as planned. If you have significant problems in the meantime, return to the ER. Prescriptions: No Action naproxen sodium [Aleve] 220 mg capsule 440 mg PO BID PRN (DME) blood-glucose meter [Accu-Chek Guide Glucose Meter] Misc See Rx Instructions .ROUTE DIRECTED Qty: 1 Rx Instructions: As directed (DME) lancets [Accu-Chek Softclix Lancets] Misc See Rx Instructions .ROUTE BID Qty: 100 Rx Instructions: As directed coenzyme Q10 200 mg capsule 200 mg PO QDAY Qty: 90 3RF acetaminophen [Tylenol] 325 mg tablet 650 mg PO Q6H PRN Eylea 2 mg/0.05 mL solution 2 mg intravitreal Q60D latanoprost 0.005 % drops 1 drp ophthalmic (eye) QPM sennosides-docusate sodium [Senokot-S] 8.6-50 mg tablet 1 tab-cap PO QHS Qty: 90 1RF dutasteride 0.5 mg capsule 0.5 mg PO QDAY Qty: 90 0RF sulfamethoxazole-trimethoprim [Bactrim DS] 800-160 mg tablet 1 tab PO BID Qty: 28 0RF Patient Comments: just started yesterday Monday pm aspirin [Children's Aspirin] 81 mg Tablet,Chewable 81 mg PO DAILY Qty: 90 0RF lisinopril 10 mg tablet 5 - 10 mg PO QDAY Qty: 90 0RF Follow Up/Referrals: Miguel Dowling MD [Primary Care Provider, Family Practice] Stand Alone Forms: [employer] website Info Instructions
== END 2025-02-16 09:54 | disposition home or self-care (01) ==
LOC: ED 09:53
PROVIDERS: Emergency Provider Emergency Medicine; PCP Family Medicine
DX: Z46.6 Encounter for fitting and adjustment of urinary device (principal)
CPT/HCPCS: 99283

== ENCOUNTER 2025-02-17 19:47 | Emergency (ER) | payer OTHER, SELFPAY ==
--- OUTSIDE RECORDS SUMMARY | 2025-02-17 10:32 | XMS_ITS | Encounter Summary ---
Author Organization [facility] Address [address] [place] [address] Care Team Providers Care Forder Operator Name Role Phone Miguel Dowling MD Primary Care Provider [phone] Reason for Referral * Consultation (Routine: Next available opening) - Pending Review Specialty Diagnoses / Procedures Referred By Contac t Referred To Contact Urology Diagnoses Hematuria, unspecified type Ernie Sal DO [facility] [address] [facility] [address] [place] [address] Phone: tel: fax: Referral ID Status Reason Start Date Expiration Date V isits Requested Visits Authorized [id number] Pending Review 02/17/2025 02/17/2026 1 1 Question Answer Referral Type: Urology Reason for Referral: Hematuria Hematuria Type: Gross Patient Scheduling Instructions: [facility] will call you to coordinate care as prescribed your provider. If you don t hear from a technical account representative within 2 business days, please call . Comments Please be aware that coverage of these services is subject to the terms and limitations of your health insurance plan. Call member services at your health plan with any benefit or coverage questions. [facility] will call you to coordinate care as prescribed your provider. If you don t hear from a technical account representative within 2 business days, please call . Reason for Visit * Reason Comments Catheter Problem Encounter Details Date Type Department Care Team (Late st Contact Info) Description 02/17/2025 10:32 AM CDT - 02/17/2025 3:44 PM CDT Emergency [facility] Emergency Dept [address] [place] [id number] Ernie Sal DO [facility] [address] [facility] [place] [address] Hematuria, unspecified type (Primary Dx) Discharge Disposition: Home or Self Care Social History Tobacco Use Types Packs/Day Years Used Date Smoking Tobacco: Former Alcohol Use Standard Drinks/Week Comments Yes 0 (1 standard drink = 0.6 oz pur e alcohol) socially Adolescent Education Answer Date Record ed Getting School Help Needed Not on file 01/22 Sex and Gender Information Value Date Recorded Sex Assigned at Not on file Legal Sex Male 3:20 AM [employer] Gender Identity Not on file Sexual Orientation Not on file documented as of this encounter Last Filed Vital Signs Vital Sign Reading Time Taken Comments Blood Pressure 128/98 02/17/2025 3:16 PM CDT Pulse 78 02/17/2025 11:53 AM CDT Temperature 36.6 C (97.9 F) 02/17/2025 10:37 AM CDT Respiratory Rate 20 02/17/2025 10:37 AM CDT Oxygen Saturation 96% 02/17/2025 3:16 PM CDT Inhaled Oxygen Concentration - - Weight 108 kg (238 lb) 02/17/2025 10:37 AM CDT Height 180.3 cm (5' 11) 02/17/2025 10:37 AM CDT Body Mass Index 33.19 02/17/2025 10:37 AM CDT documented in this encounter Discharge Instructions * Discharge Instructions* Ernie Sal DO - 02/17/2025 3:35 PM CDT Follow-up with primary care and urology as discussed. Return if you are unable to urinate, have persistent or worsening blood in your urine, fevers, vomiting, pain, any new or worsening symptoms or for any other concerns * Attachments The following attachments cannot be sent through Care Everywhere. * Hematuria ([place] Citizen) documented in this encounter Medications at Time of Discharge allopurinol (ZYLOPRIM) 300 MG tablet Take 300 mg by mouth 05/12/2021 amLODIPine (NORVASC) 10 MG tablet Take 1 tablet by mouth daily 04/10/2021 LISINOPRIL PO Take by mouth. documented as of this encounter ED Notes * Odell Dominguez - 02/17/2025 2:23 PM CDT Escorted patient to the restroom again, Patient was able to void without pain, however, continued to bleed from penis. Initial void was urine. Patient provided with a clean brief and escorted back toroom * Odell Dominguez - 02/17/2025 1:27 PM CDT Escorted patient to restroom in the attempt to void. Patient pulled call cord with the complaint ofblood coming from his penis. Clinical Assistant Professor observed bright red blood in the toilet, on the floor and constant leaking from his penis. Patient cleaned himself in the sink, brief and fresh pants provided. * Ernie Sal DO - 02/17/2025 10:50 AM CDT Emergency Department Note History of Present Illness Chief Complaint Catheter Problem HPI Armen Crump is a 80 year old male with a history of hypertension, atrial fibrillation, gout, and rectal cancer who presents for evaluation of a catheter problem. The patient reports that his catheter was placed one week ago (02/10/25) in response to painful and difficult urination likely related to enlarged prostate. He recalls they initially drained about 600mL of urine and left the catheter in. However, he reports that on night (02/13/25), he accidentally pulled the catheter outa bit while sleeping. He went to the Emergency Department yesterday (02/16/25) and was evaluated. He was still emptying without problems so he was discharged. Today (02/17/25), he was seen at a clinic where they removed his catheter and noted increased bleeding from the urethra and pain upon Michaud catheter removal. Recommended he be seen at the Emergency Department. He denies any current pain, and has not tried urinating since the catheter has been removed. Independent Historian None Review of External Notes Past Medical History Medical History and Problem List Hypertension Paroxysmal Atrial Fibrillation Rectal Cancer Polycythemia Gout Macular Degeneration Obesity REBECCA Prediabetes Medications Zyloprim Norvasc Zestril Crestor Surgical History Right Total Knee Arthroscopy Physical Exam Patient Vitals for the past 24 hrs: BP Temp Temp src Pulse Resp SpO2 Height Weight 02/17/25 1516 (!) 128/98 -- -- -- -- 96 % -- -- 02/17/25 1153 (!) 151/104 -- -- 78 -- 95 % -- -- 02/17/25 1037 (!) 136/102 97.9 ??F (36.6 ??C) Oral 87 20 94 % 1.803 m (5' 11) 108 kg (238 lb) Physical Exam Constitutional: Appearance: Normal appearance. Pulmonary: Effort: Pulmonary effort is normal. Abdominal: General: Abdomen is flat. Palpations: Abdomen is soft. Tenderness: There is no abdominal tenderness. Genitourinary: Penis: Normal. Skin: General: Skin is warm and dry. Neurological: Mental Status: He is alert and oriented to person, place, and time. Diagnostics Lab Results Labs Ordered and Resulted from Time of ED Arrival to Time of ED Departure - No data to display Imaging No orders to display EKG Independent Interpretation None ED Course Medications Administered Medications - No data to display Procedures Procedures Discussion of Management None ED Course ED Course as of 02/17/25 1536 Mon Feb 17, 2025 1113 I obtained the history and examined the patient as noted above. Additional Documentation None Medical Decision Making / Diagnosis [facility] Diagnoses: None MIPS None [facility] Armen Crump is a 80 year old male hematuria following Michaud catheter removal by primary care doctor. Patient has been able to urinate 4 times here in the department. Every time he goes the symptoms are less and bleeding is less. He denies urgency. Abdomen soft and nontender on exam. Because heis able to empty his bladder and bleeding is decreasing and he was having pain for 4 days prior to getting the Michaud catheter removed we will avoid reinsertion of Michaud catheter at this point and have him follow-up . needs outpatient follow-up with urology. We discussed reasons for return. Patient understands and agrees with plan Disposition The patient was discharged. Diagnosis ICD-10-CM 1. Hematuria, unspecified type R31.9 Adult Urology Ekg Tech Referral Discharge Medications New Prescriptions No medications on file Scribe Disclosure: I, Asif Gomez, am serving as a scribe at 10:53 AM on 02/17/2025 to document services personally performed by Ernie Sal DO based on my observations and the provider's statements to me. Ernie Sal DO 02/17/25 1536 * Day Leger RN - 02/17/2025 10:38 AM CDT Pt BIBA at [facility] for a catheter removal. Pt stepped on catheter yesterday AM d/t accidentally pulling out catheter. Pt went to [facility] ED and they were able to put catheter back in. Ptstated he had catheter d/t increased difficulty with urination. Pt went to clinic today to have thecatheter removed and upon removal staff noted increased bleeding from the urethra. Per EMS report, clinic staff put a nose clamp below the urethra. EMS states no active bleeding, pt endorses small drops. Denies beong on thinners. Triage Assessment (Adult) Row Name 02/17/25 1038 Triage Assessment Airway WDL WDL Respiratory WDL Respiratory WDL WDL Cardiac WDL Cardiac WDL X;all Chest Pain Assessment Associated Signs/Symptoms hypertension * Mireya Cook RN - 02/17/2025 10:32 AM CDT Bed: [facility] Expected date: Expected time: Means of arrival: Comments: Ezio [phone]- [phone], M, cath problem documented in this encounter Plan of Treatment Scheduled Referrals Name Type Priority Associated Diagnoses Orde r Schedule Adult Urology Ekg Tech Referral Referral Routine: Next available opening Hematuria, unspecified type Expected: 02/17/2025 (Approximate), Expires: 02/17/2026 documented as of this encounter Visit Diagnoses Diagnosis Hematuria, unspecified type- Primary documented in this encounter Care Teams Forder Operator Relationship Specialty Start Date End Date Miguel Dowling MD PCP - General Family Medicine 03/07/22 documented as of this encounter
--- OUTSIDE RECORDS SUMMARY | 2025-02-17 19:49 | XMS_ITS | Encounter Summary ---
Author Organization [facility] Address [address] [place] [address] Care Team Providers Care Pump House Operator Name Role Phone Miguel Dowling MD Primary Care Provider [phone] Encounter Details Date Type Department Care Team (Latest Contact Info) Description 02/17/2025 Travel Social History Tobacco Use Types Packs/Day Years Used Date Smoking Tobacco: Former Alcohol Use Standard Drinks/Week Comments Yes 0 (1 standard drink = 0.6 oz pur e alcohol) socially Adolescent Education Answer Date Record ed Getting School Help Needed Not on file 01/22 Sex and Gender Information Value Date Recorded Sex Assigned at Not on file Legal Sex Male 3:20 AM [employer]RI[employer] ASSOC[employer] Gender Identity Not on file Sexual Orientation Not on file documented as of this encounter Plan of Treatment Not on file documented as of this encounter Visit Diagnoses Not on filedocumented in this encounter Care Teams Pump House Operator Relationship Specialty Start Date End Date Miguel Dowling MD PCP - General Family Medicine 03/07/22 documented as of this encounter
--- OUTSIDE RECORDS SUMMARY | 2025-02-17 19:49 | XMS_ITS | CCD ---
Author Name Interface, [email or web address] lity Address [address] [place], [place] [address] [address] [facility] Address [address] [place] [address] Reason for Visit Social History
--- OUTSIDE RECORDS SUMMARY | 2025-02-17 19:49 | XMS_ITS | CCD ---
Author Name Interface, [email or web address] lity Address [address] [place], [place] [address] [address] [facility] Address [facility] [address] [address] Reason for Visit Social History Date Name Value 12/21/2024 Sex Male
[2025-02-17 20:09] VITALS: BP 161/119; PULSE 117; RESP 18; TEMP 36.6; O2SAT 92; BMI 32.1
--- NOTE | 2025-02-17 21:27 | ED.MALEGU ---
HPI - Male Genitourinary General Time Seen by Provider: 21:27 Date Seen: 02/17/25 Chief complaint: Urogenital Problems, Male Stated complaint: Cath. removed today, pain/urinating issues Time Seen by Provider: 02/17/25 21:27 Source: patient and RN notes reviewed Mode of arrival: ambulatory Limitations: no limitations History of Present Illness HPI Narrative: Harinder is a very pleasant 80-year-old male who had a Michaud placed 1 week ago here at the [facility] for inability urinate thought to be related to constipation as well as a prostate issue who comes to the emergency room tonight with inability to urinate after having the catheter removed this morning. Patient notes that he had a small amount of urine after that but mostly a lot of blood. He was seen at [facility] because they thought they had urology there. He was told that he should be pushing fluids. Patient notes that he did have a subsequent visit to the ER after having the catheter placed as it was leaking. This morning the catheter was removed and he describes incredible pain when that occurred. He is wondering if perhaps he had an infection. Related Data Home Medications ?Medication ?Instructions ?Recorded ?Confirmed acetaminophen 325 mg tablet 650 mg PO Q6H PRN 05/09/22 02/16/25 (Tylenol) aflibercept 2 mg/0.05 mL 2 mg intravitreal Q60D 05/22/23 02/16/25 intravitreal solution for injection (Eylea) naproxen sodium 220 mg capsule 440 mg PO BID PRN 01/08/24 02/16/25 (Aleve) blood-glucose meter (Accu-Chek #1 ea 10/10/24 02/13/25 Guide Glucose Meter) lancets (Accu-Chek Softclix #100 ea 10/10/24 02/13/25 Lancets) latanoprost 0.005 % eye drops 1 drp ophthalmic (eye) QPM 02/13/25 02/16/25 Previous Rx's ?Medication ?Instructions ?Recorded aspirin 81 mg chewable tablet 81 mg PO DAILY #90 tabs 10/06/24 (Children's Aspirin) coenzyme Q10 200 mg capsule 200 mg PO QDAY #90 caps 12/16/24 lisinopril 10 mg tablet 5 - 10 mg (0.5 - 1 x 10 mg) PO 01/27/25 QDAY #90 tabs dutasteride 0.5 mg capsule 0.5 mg PO QDAY #90 caps 02/13/25 sennosides 8.6 mg-docusate sodium 1 tab-cap PO QHS #90 tabs 02/13/25 50 mg tablet (Senokot-S) sulfamethoxazole 800 1 tab PO BID #28 tabs 02/14/25 mg-trimethoprim 160 mg tablet (Bactrim DS) Allergies Allergy/AdvReac Type Severity Reaction Status Date / Time oxycodone Allergy Intermediate Unknown Verified 02/16/25 09:22 Xaagorv-KNP-ChU Reductase Allergy Intermediate Verified 02/16/25 09:22 Inhibitor ciprofloxacin AdvReac Intermediate rash Verified 02/16/25 09:22 hydrochlorothiazide AdvReac Intermediate Gout Verified 02/16/25 09:22 exacerbation metoprolol AdvReac Intermediate Verified 02/16/25 09:22 cefadroxil AdvReac GI Verified 02/16/25 09:22 upset/bloody stools PFSH PFSH Medical History (Updated 02/17/25 @ 22:57 by Angela Soares MD) BPH (benign prostatic hyperplasia) ?N40.0 - Benign prostatic hyperplasia without lower urinary tract symptoms (ICD-10) 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 neoplasm of rectosigmoid junction (ICD-10) Medicare annual wellness visit, subsequent ?Z00.00 - Encounter for general adult medical examination without abnormal findings (ICD-10) Vertigo ?R42 - Dizziness and giddiness (ICD-10) Urinary frequency ?R35.0 - Frequency of micturition (ICD-10) Urinary tract infection ?N39.0 - Urinary tract infection, site not specified (ICD-10) 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 - Other diseases of salivary glands (ICD-10) Adverse effect of non-steroidal anti-inflammatory drug (NSAID) ?T39.395A - Adverse effect of other nonsteroidal anti-inflammatory drugs [NSAID], initial encounter (ICD-10) Calculus of kidney ?N20.0 - Calculus of kidney (ICD-10) Enlarged prostate ?N40.0 - Benign prostatic hyperplasia without lower urinary tract symptoms (ICD-10) Gout ?M10.9 - Gout, unspecified (ICD-10) Hypertension ?I10 - Essential (primary) hypertension (ICD-10) Atrial fibrillation ?I48.91 - Unspecified atrial fibrillation (ICD-10) Polycythemia ?D75.1 - Secondary polycythemia (ICD-10) Reoccurring knee pain ?M25.569 - Pain in unspecified knee (ICD-10) 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 (ICD-10) Diabetes ?E11.9 - Type 2 diabetes mellitus without complications (ICD-10) Pre-procedure lab exam ?Z01.812 - Encounter for preprocedural laboratory examination (ICD-10) Elevated PSA measurement ?R97.20 - Elevated prostate specific antigen [PSA] (ICD-10) History of agent [place] exposure ?Z77.098 - Contact with and (suspected) exposure to other hazardous, chiefly nonmedicinal, chemicals (ICD-10) Surgical History Status post knee replacement (~01/28/21) ?Z96.659 - Presence of unspecified artificial knee joint (ICD-10) Social History What is your current living situation?: I presently have a place to live Problems where you live: no known problems Problems where you live details: [facility] In the past 12 months, utilities in danger of being shut off: no In past 12 months, lack of transportation kept you from medical appts, meetings, work, or getting things needed for daily living: no In the past 12 mos, have been you worried that your food would run out before you had money to buy more?: never true In the past 12 mos, the food you bought just didn't last and you didn't have money to buy more?: never true Highest level of school completed/degree received: high school graduate Smoking Status: Former smoker Do you use any of these nicotine containing products: None Second hand tobacco smoke exposure: No How often do you have a drink containing alcohol: 2-3 times a week Alcohol type: hard liquor How many standard drinks containing alcohol do you have on a typical day: 1 or 2 How often do you have six or more drinks on one occasion: Never AUDIT-C Alcohol total score: 3 Non-prescribed substance use: denies use Caffeine: Yes (3-4 cups daily) How often does anyone, including family, friends and others, physically hurt you: never How often does anyone, including family, friends and others, insult or talk down to you: never How often does anyone, including family, friends and others, threaten you with harm: never How often does anyone, including family, friends and others, scream or curse at you: never service: Yes Exam Narrative: Exam Narrative: Girish is alert and oriented. He is standing up in room 7 trying to urinate unsuccessfully. He does appear to be agitated which is understandable. External ears eyes nose clear. Moist mucous membranes. Heart is tachycardic with a regular rhythm. Lungs are clear. Abdomen is protruded Kulwinder with discomfort. He has a penis normal in appearance. Small bladder a blood at the urinary meatus. He on his left inner thigh he has a rectangular shaped area consistent with where previous adhesive was applied with ecchymosis noted especially proximally. He is ambulating without difficulty. Const: Vital Signs, click to edit/add: Vital Signs - 24 hr 02/17/25 20:09 Temperature 98 F Pulse Rate [Pulse Oximeter] 117 H Respiratory Rate 18 Blood Pressure [Ri ght Upper Arm] 161/119 H Pulse Oximetry 92 Oxygen Delivery Me thod Room Air Documenting provider has reviewed patient's vital signs: yes Course Course ED Course: At this time patient appears to have persistent urinary obstruction. Earlier today he did have the catheter removed with significant pain. I have to consider that may be the bulb was not completely emptied when this occurred. Also he could have had adhesions form over this last week between the catheter in the meatus itself. Do not see excessive blood at this time. Would have to consider however bladder clots or underlying UTI as physical obstruction to emptying as well. Do feel the need to go ahead and replace the catheter. Have ordered a Uro jet as well as IV Valium 5 mg as he is significantly in discomfort and agitated. Reevaluation(s) Reevaluation #1: Catheter placed with out significant difficulty by better in nursing staff. Patient drains out 600 mL. Patient is feeling much improved at this time. Will await laboratory values. Vital Signs Vital signs: Initial Vital Signs Temperature 98 F 02/17/25 20:09 Temperature Source Temporal Artery Scan 02/17/25 20:09 Pulse Rate 117 H 02/17/25 20:09 Respiratory Rate 18 02/17/25 20:09 Blood Pressure 161/119 H 02/17/25 20:09 Blood Pressure Mean 133 H 02/17/25 20:09 Blood Pressure Position Standing 02/17/25 20:09 Pulse Oximetry 92 02/17/25 20:09 Oxygen Delivery Method Room Air 02/17/25 20:09 Vital Signs Temperature 98 F 02/17/25 20:09 Pulse Rate 117 H 02/17/25 20:09 Respiratory Rate 18 02/17/25 20:09 Blood Pressure 161/119 H 02/17/25 20:09 Pulse Oximetry 92 02/17/25 20:09 Oxygen Delivery Method Room Air 02/17/25 20:09 Temperature 98 F 02/17/25 20:09 Pulse Rate 117 H 02/17/25 20:09 Respiratory Rate 18 02/17/25 20:09 Blood Pressure 161/119 H 02/17/25 20:09 Pulse Oximetry 92 02/17/25 20:09 Oxygen Delivery Method Room Air 02/17/25 20:09 Medications Administered Medications: Generic Name Dose Route Start Last Admin Trade Name Freq PRN Reason Stop Dose Admin Lidocaine HCl 6 ml 02/17/25 21:50 02/17/25 21:58 Lidocaine Hcl 2 % Jelly (Top) Sterile UR 6 ml ONCE PRN Administration Discontinued Medications Generic Name Dose Route Start Last Admin Trade Name Freq PRN Reason Stop Dose Admin Diazepam 5 mg 02/17/25 21:33 02/17/25 21:50 Diazepam 5 Mg/Ml Inj IV 02/17/25 21:34 5 mg ONCE ONE Administration MDM - Male Genitourinary MDM Narrative Medical decision making narrative: 1. Acute urinary obstruction-likely prostate continues to be the problem. Did not note excessive hematuria would catheter was placed. He is draining quite nicely. Will have him leave this in place and still he sees urology. Recommend calling his primary is office to see if they can set up an appointment for him. Return as needed. 2. Elevated hemoglobin-this has been ongoing for the last 20 years. Recommend follow-up at his primary is office. 3. Elevated creatinine-creatinine tonight is 1.6 with a value 1 week ago 1.0. During the interim he had been placed on Bactrim as well as taking aspirin twice daily for discomfort. Would have him discontinue both of these practices at this time. Also tele to avoid Aleve until the value is back to normal. He will use Tylenol for pain instead. Likely he could use anyone of these independently but all together likely cause the elevated creatinine. I do not note that he had a history of UTI from his previous visit. He was placed on this medication on February 13 which would be 5 days of medicine. Given the fact that his urine looks so clear tonight I will have him discontinue the Bactrim and await the urine culture. Again, if urine culture is positive would likely be able to place him on Bactrim or other appropriate antibiotic for a period of time as long as he is not using aspirin. Notes he will continue to take baby aspirin 81 mg a day. 4. Elevated calcium-10.9 tonight. Patient's tells me that he does use Tums quite a bit. Would have him use alternative such as Pepcid instead. Will need to have this rechecked in the office. 5. Disposition-home at this time. Return for worsening symptoms especially fever, vomiting, worsening symptoms and as needed. Medical Records Attestation: I reviewed the patient's medical records. Lab Data Attestation: I reviewed the patient's lab results. Labs: Lab Results 02/17/25 02/17/25 Range/Units 21:40 22:10 WBC 7.94 (4.50-11.00) K/uL RBC 6.83 H (4.30-5.90) m/uL Hgb 20.6 H (13.5-17.5) gm/dL Hct 60.7 H (37.0-53.0) % MCV 89 (80-100) fL MCH 30 (26-34) pg MCHC 34 (32-36) gm/dL RDW Coeff of Scott 13.0 (11.5-15.5) % Plt Count 222 (140-440) K/uL Neut % (Auto) 61.2 (42.0-72.0) % Lymph % (Auto) 21.8 (20-44) % R[place]y % (Auto) 13.5 H (0.0-11.0) % Eos % (Auto) 2.8 (0.0-7.0) % Baso % (Auto) 0.3 (0.0-3.0) % Neut # (Auto) 4.87 (1.7-7.0) K/uL Lymph # (Auto) 1.73 (0.90-2.90) K/uL [place]y # (Auto) 1.10 H (0.00-0.90) K/UL Eos # (Auto) 0.22 (0.00-0.50) K/uL Baso # (Auto) 0.02 (0.00-0.30) K/uL Abs Immat Gran (auto) 0.03 (0.00-0.30) K/uL Imm/Tot Granulo (auto) 0.4 % Sodium 141 (135-149) mmol/L Potassium 4.6 (3.6-5.1) mmol/L Chloride 100 (96-114) mmol/L Carbon Dioxide 27 (20-32) mmol/L Anion Gap 14 (7-15) mEq/L BUN 19 (7-30) mg/dL Creatinine 1.6 H (0.5-1.5) mg/dL Estimated Creat Clear 40.53 Estimated GFR 44 ml/min Glucose 129 H (60-115) mg/dL Calcium 10.9 H (8.4-10.6) mg/dL Urine Color Yellow (Yellow) Urine Appearance Clear (Clear) Urine pH 5.5 (5.0-8.5) Ur Specific [place] 1.025 (1.000-1.030) Urine Protein Negative (Negative) Urine Glucose (UA) Negative (Negative) Urine Ketones Negative (Negative) Urine Blood 3+ A (Negative) Urine Nitrite Negative (Negative) Urine Bilirubin Negative (Negative) Urine Urobilinogen 0.2 (0.2-1.0) Ur Leukocyte Esterase Negative (Negative) Urine RBC 25-50 A (0-2) Urine WBC 2-5 (0-5) Ur Squamous Epith Cells Few (None-Few) Urine Bacteria Few A (None) Discharge Plan Discharge Clinical Impression: Acute urinary obstruction, Acute renal insufficiency, Elevated hemoglobin, Serum calcium elevated Patient Disposition: Home, Self-Care Condition: Improved Additional Instructions: 1. Acute urinary obstruction-it is a good idea to increase fluids so that if there is any more blood in your urine it will not clot and block the catheter. You will need to see Urology. 2. Elevated creatinine-tonight value is 1.6. . Sulfa antibiotic also known as Bactrim for now. Will wait on your urine culture to see if we need to restart that. I think this is probably from the fact that you are on both Aleve and you used aspirin daily. I would like you to discontinue both of these medications at this time. Use Tylenol for pain. You will need to follow up to ensure that this has returned to normal sometime this week with your primary doctor. 3. Elevated hemoglobin-tonight your hemoglobin was at 20.6. 4. Elevated calcium -10.9 which is slightly over normal value of 10.6. This too should be recheck by your primary physician. Return to the ER as needed for worsening symptoms. Call the clinic to have them such up with Urology. Prescriptions: No Action naproxen sodium [Aleve] 220 mg capsule 440 mg PO BID PRN (DME) blood-glucose meter [Accu-Chek Guide Glucose Meter] Misc See Rx Instructions .ROUTE DIRECTED Qty: 1 Rx Instructions: As directed (DME) lancets [Accu-Chek Softclix Lancets] Misc See Rx Instructions .ROUTE BID Qty: 100 Rx Instructions: As directed coenzyme Q10 200 mg capsule 200 mg PO QDAY Qty: 90 3RF acetaminophen [Tylenol] 325 mg tablet 650 mg PO Q6H PRN Eylea 2 mg/0.05 mL solution 2 mg intravitreal Q60D latanoprost 0.005 % drops 1 drp ophthalmic (eye) QPM sennosides-docusate sodium [Senokot-S] 8.6-50 mg tablet 1 tab-cap PO QHS Qty: 90 1RF dutasteride 0.5 mg capsule 0.5 mg PO QDAY Qty: 90 0RF sulfamethoxazole-trimethoprim [Bactrim DS] 800-160 mg tablet 1 tab PO BID Qty: 28 0RF Patient Comments: just started yesterday Monday pm aspirin [Children's Aspirin] 81 mg Tablet,Chewable 81 mg PO DAILY Qty: 90 0RF lisinopril 10 mg tablet 5 - 10 mg PO QDAY Qty: 90 0RF Follow Up/Referrals: Miguel Dowling MD [Primary Care Provider, Family Practice] Stand Alone Forms: [employer] Info Instructions
[2025-02-17] MEDS: diazePAM 5 MG/ML inj IV (21:50)
[2025-02-17 21:53] LABS: Hematocrit* 60.7 % (37.0-53.0); Hemoglobin* 20.6 gm/dL (13.5-17.5); Immature Granulocytes Abs Auto 0.03 K/uL (0.00-0.30); Immature Granulocytes Pct Auto 0.4 %; Lymphocytes Absolute Auto 1.73 K/uL (0.90-2.90); Mean Corpuscular HGB Conc 34 gm/dL (32-36); Mean Corpuscular Hemoglobin 30 pg (26-34); Mean Corpuscular Volume 89 fL (80-100); RDW Coefficient of Variation % 13.0 % (11.5-15.5); Red Blood Count* 6.83 m/uL (4.30-5.90); White Blood Count* 7.94 K/uL (4.50-11.00)
[2025-02-17 21:57] LABS: Slide Review Reflex No
[2025-02-17] MEDS: lidocaine HCL 2 % JELLY (TOP) STERILE 6 ML UR (21:58)
[2025-02-17 22:03] LABS: Chloride* 100 mmol/L (96-114); Potassium* 4.6 mmol/L (3.6-5.1); Sodium* 141 mmol/L (135-149)
[2025-02-17 22:06] LABS: Blood Urea Nitrogen* 19 mg/dL (7-30); Creatinine* 1.6 mg/dL (0.5-1.5); Est. Creatinine Clearance* 40.53; Estimated Glomerular Filt Rate 44 ml/min
[2025-02-17 22:07] LABS: Anion Gap 14 mEq/L (7-15); Calcium* 10.9 mg/dL (8.4-10.6); Carbon Dioxide* 27 mmol/L (20-32); Glucose* 129 mg/dL (60-115)
--- OUTSIDE RECORDS SUMMARY | 2025-02-17 22:18 | XMS_ITS | CCD ---
Author Name Interface, [id number] lity Address [address] [place], [place] [address] [place] [address] [facility] Address [facility] [address] [address] Reason for Visit Social History Date Name Value 12/21/2024 Sex Male
--- OUTSIDE RECORDS SUMMARY | 2025-02-17 22:18 | XMS_ITS | CCD ---
Author Name Interface, [id number] lity Address [address] [place], [place] [address] [place] [address] [facility] Address [facility] [address] [address] Reason for Visit Social History Date Name Value 12/21/2024 Sex Male
[2025-02-17 22:23] LABS: Appearance Urine Clear (Clear)
[2025-02-17 23:30] VITALS: BP 126/105; PULSE 101; RESP 18; O2SAT 92
== END 2025-02-17 23:30 | disposition home or self-care (01) ==
PROVIDERS: Emergency Provider Family Medicine; PCP Family Medicine
DX: N13.9 Obstructive and reflux uropathy, unspecified (principal); N17.9 Acute kidney failure, unspecified; D58.2 Other hemoglobinopathies; E83.52 Hypercalcemia
CPT/HCPCS: 36415; 80048; 81001; 85025; 87086; 99284; J3360

== ENCOUNTER 2025-02-28 09:50 | Outpatient (CLI) | payer OTHER, SELFPAY | END 2025-02-28 09:51 | disposition home or self-care (01) | LOC: AMB 03-05 17:58 | PROVIDERS: PCP Family Medicine; Visit Provider Internal Medicine | DX: R10.9 Unspecified abdominal pain (principal); Z46.6 Encounter for fitting and adjustment of urinary device | CPT/HCPCS: A0425; A0433 ==

== ENCOUNTER 2025-04-14 11:41 | Outpatient (CLI) | payer OTHER, SELFPAY | END 2025-04-14 11:42 | disposition home or self-care (01) | LOC: LKVREF 11:45 | PROVIDERS: PCP Family Medicine; Visit Provider Family Medicine | DX: D75.1 Secondary polycythemia (principal); E11.9 Type 2 diabetes mellitus without complications; I10 Essential (primary) hypertension; N40.0 Benign prostatic hyperplasia without lower urinary tract symptoms; R53.83 Other fatigue; Z86.79 Personal history of other diseases of the circulatory system | CPT/HCPCS: 80048; 82306 ==